=== PATIENT | male | born 1935 | race Caucasian/White ===

== ENCOUNTER 2023-08-09 14:44 | Outpatient (OUT) | payer MEDICARE, BC, SELFPAY ==
--- NOTE | 2023-08-09 15:18 | XR_ITS ---
The [address] [address] Patient Name: AZUL PALOMINO MRN: [id number] date: 1935 Sex: M Assigned Patient Location: LAB Current Patient Location: LAB Accession/Order Number: [id number] Exam Date: 08/09/2023 15:20 Report Date: 08/09/2023 15:32 At the request of: BRANDI SERNA Procedure: XR chest 2V EXAM: XR chest 2V HISTORY: dyspnea R06.00 COMPARISON: 08/21/2021 TECHNIQUE: Upright PA and lateral chest x-ray FINDINGS: Shallow inspiration. A small amount of atelectasis or scarring is seen at the right lung base. There has been interval improvement of the aeration at both lung bases. No acute infiltrate, effusion or pneumothorax is identified. A calcified granuloma is seen at the right apex. Some degenerative changes are seen in the spine. The heart is not significantly enlarged and the vasculature is not distended. XR/XR chest 2V IMPRESSION: Improved depth of inspiration and improved aeration at the lung bases. A small amount of linear atelectasis or scarring persist at the right lung base and there is evidence of previous granulomatous disease. There is no evidence of overt cardiac decompensation or an acute infiltrate. Electronically authenticated by: AKIL LANGFORD Date: 08/09/2023 15:32
[2023-08-09 15:47] LABS: Anion Gap 7.9; BUN Creatinine Ratio 15.4; Calcium 9.1 mg/dL (8.5-10.1); Carbon Dioxide 33.9 mmol/L (21.0-32.0); Chloride 98 mmol/L (98-107); Estimated GFR (African America >60 (>=60); Estimated GFR (Non-African Ame >60 (>=60); Glucose 111 mg/dL (74-106); Potassium 3.8 mmol/L (3.5-5.1); Sodium 136 mmol/L (136-145)
== END 2023-08-09 14:45 | disposition home or self-care (01) ==
PROVIDERS: PCP Nurse Practitioner; Visit Provider Nurse Practitioner
DX: R06.00 Dyspnea, unspecified (principal); I10 Essential (primary) hypertension
CPT/HCPCS: 36415; 71046; 80048

== ENCOUNTER 2023-09-30 10:49 | Outpatient (OUT) | payer MEDICARE, BC, SELFPAY ==
--- OUTSIDE RECORDS SUMMARY | 2023-09-30 11:00 | XMS_ITS | CCD ---
Author Name Unknown Address [id number] [place] [address] Organization [facility] Care Team Providers Care Nurse Practitioner Adult Name Role Phone PAY, DR STUART Attending Unavailable PAY, DR STUART Admitting Unavailable ROSS, ALEX Primary Care Unavailable PAY, DR STUART Consulting Unavailable SAMSA, URBANO Attending Unavailable SAMSA, URBANO Admitting Unavailable ROSS, ALEX Primary Care Unavailable RISHI, DR OMKAR Solorio Consulting Unavailable WIECETj, DR GOYO Arizmendi Procedure Practitioner Unav mayra REYES, DR RM Consulting Unavailable ERLIN, DR KENAN Bernal Consulting Unavailable SAMSA, URBANO Procedure Practitioner Unavailab apolinar DUCKWORTH, DR ZHANE Oliveira Consulting Unavailable WIECEK, DR GOYO Arizmendi Consulting Unavailable ZIEBER, DR ROBERT Solorio Consulting Unavailable NADERER, DR HELENA Mendes Consulting Unavailable STEPHANIE GOMEZ Consulting Unavailable SAMSA, URBANO Consulting Unavailable ROSS, ALEX Consulting Unavailable CHASE, SUPA Consulting Unavailable AHDOOT, TIFFANI Consulting Unavailable FANY, CEZAR Consulting Unavailable Laura, Edward Consulting Unavailable Francisca, Gerardo Consulting Unavailable Dominic Steve Consulting Unavailable SWAPNA RANDHAWA Consulting Unavailable ROSS, ALEX Primary Care Unavailable ROSS, ALEX Consulting Unavailable ROSS, ALEX Attending Unavailable ROSS, ALEX Admitting Unavailable ROSS, ALEX Consulting Unavailable ROSS, ALEX Primary Care Unavailable ROSS, ALEX Attending Unavailable ROSS, ALEX Admitting Unavailable REQUEST, NONE LISTED Admitting Unavaila ble URSZULA, ALEX Primary Care Unavailable REQUEST, NONE LISTED Consulting Unavaila ble REQUEST, NONE LISTED Attending Unavaila ble URSZULA, ALEX Consulting Unavailable URSZULA, ALEX Primary Care Unavailable REQUEST, NONE LISTED Attending Unavaila ble REQUEST, DR YANG LISTED Admitting Unavaila ble REQUEST, NONE LISTED Consulting Unavaila ble ARI, DR GARCIA Attending Unavailable ARI, DR GARCIA Admitting Unavailable ROSS, ALEX Primary Care Unavailable ARI, DR GARCIA Consulting Unavailable Gerardo Brady Consulting Unavailable Ailyn Baez Unavailable Unavailable Unavailable PROVIDER, UNKNOWN Attending Unavailable NA MELLO Referring Unavailable ZHANE WHITFIELD Admitting Unavailable RIAZ, NA Referring Unavailable ZHANE WHITFIELD Admitting Unavailable PROVIDER, UNKNOWN Attending Unavailable PROVIDER, UNKNOWN Attending Unavailable PROVIDER, UNKNOWN Admitting Unavailable TUPA, NA Referring Unavailable PROVIDER, UNKNOWN Attending Unavailable PROVIDER, UNKNOWN Admitting Unavailable TUPA, NA Referring Unavailable PROVIDER, UNKNOWN Attending Unavailable PROVIDER, UNKNOWN Admitting Unavailable TUPA, NA Referring Unavailable PROVIDER, UNKNOWN Admitting Unavailable TUPA, NA Referring Unavailable CONSULT, IP SURGERY TRIAGE Consulting Unava ilable NATHAN GUERRERO Attending Unavailable ZHANE WHITFIELD Admitting Unavailable REQUEST, IP PHYSICAL THERAPY SERVICE Consulting Unavailable REQUEST, IP OCCUPATIONAL THERAPY SERVICE Consult ing Unavailable CONSULT, IP INFECTIOUS DISEASE Consulting U navailable PROVIDER, UNKNOWN Admitting Unavailable NATHAN MOYA Referring Unavailable PROVIDER, UNKNOWN Attending Unavailable CONSULT, IP SURGERY TRAUMA Referring Unava ilable PROVIDER, UNKNOWN Admitting Unavailable PROVIDER, UNKNOWN Attending Unavailable Keira Haile Unavailable AILYN BAEZ Primary Care Unavailable AILYN BAEZ Attending Unavailable Bullimore, Marilyn E Admitting Unavailable Bullimore, Marilyn E Attending Unavailable Ailyn Baez Primary Care Unavailable ELTAHAWY, EHAB Referring Unavailable ELTAHAWY, EHAB Attending Unavailable BEATRIZ ARAMBULA Attending Unavailable ELTAHAWY, EHAB Referring Unavailable Ailyn Baez MD Primary Care Provider [phone] Nahid CYLINDER PRESS OPERATOR, Annette Unavailable ANNETTE WHITFIELD Attending Unavailable ANNALEE HERNÁNDEZ A Attending Unavailable ANNMIS SASCHA H Referring Unavailable EDGARZAMZAM SHARMAORAH A Attending Unavailable NAHID ANNETTE Attending Unavailable TIMMIS, SASCHA H Attending Unavailable NAHID ANNETTE Attending Unavailable EDGAR ANNALEE A Attending Unavailable Allergies Allergy Classification Reported Allergen(s) Allergy Type Date of Onset Reaction(s) Facility (1 source) Lidocaine Drug Allergy 08-30-2013 [facility] Repository Medications Current Medications Medication Drug Class(es) Dates Sig (Normalized) Sig (Original) aspirin 81 mg delayed release oral tablet (14 sources) Platelet Aggregation Inhibitor, Nonsteroidal Anti-inflammatory Drug Start: 09-12-2023 End: 12-11-2023 take 1 tablet by mouth once daily aspirin 81 MG EC tablet Indications: 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 90 tablet 1 09/12/2023 12/11/2023 Active Atorvastatin Agustín cium Active b complex vitamins capsule (4 sources) take 1 capsule by mouth in the morning b complex vitamins capsule Take 1 capsule by mouth in the morning. 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 Take with meals. 180 tablet 1 09/12/2023 12/11/2023 Active Start: 05-25-2021 take 1 tablet by gisela twice daily Carvedilol 25 MG Oral Tablet TAKE 1 TABLET BY MOUTH TWICE DAILY Quantity: 90 Refills: 2 Ordered: 30-Aug-2022 Ailyn Baez DO Start : 25-May-2021 Active Carvedilol Activ e cyclobenzaprine hydrochloride 5 mg oral tablet (1 source) Muscle Relaxant Start: 08-27-2022 take 1 tablet by mouth every eight hours Cyclobenzaprine HCl 5 MG 1 tablet as needed Orally Three times a day Aug, Active finasteride 5 mg oral tablet (14 sources) 5-alpha Reductase Inhibitor Start: 05-25-2021 End: 12-11-2023 take 1 tablet by mouth in the morning finasteride (Proscar) 5 MG tablet Indications: Benign prostatic hyperplasia with weak urinary stream Take 1 tablet (5 mg) by mouth in the morning. Take 5 mg by mouth in the morning.. 90 tablet 1 09/12/2023 12/11/2023 Active Finasteride Acti ve furosemide 20 mg oral tablet (11 sources) Loop Diuretic Start: 09-12-2023 End: 12-11-2023 take 1 tablet by mouth every other day furosemide (Lasix) 20 MG tablet Indications: Edema of both lower extremities Take 1 tablet (20 mg) by mouth every other day 45 tablet 1 09/12/2023 12/11/2023 Active Start: 07-20-2023 End: 10-18-2023 take 1 tablet by mouth once daily as needed for edema furosemide (Lasix) 20 MG tablet Indications: Leg swelling Take 1 tablet (20 mg) by mouth Daily as needed (LE edema) 90 tablet 0 07/20/2023 09/12/2023 Discontinued (Reorder) Start: 12-08-2021 Furosemide 20 MG Oral Tablet TAKE ONE TABLET BY MOUTH EVERY DAY (STOP TAKING IT ONCE LEG SWELLING RESOLVE, IF SWELLING REOCCURRS YOU CAN START TAKING AGAIN) Quantity: 90 Refills: 1 Ordered: 07-Apr-2022 Ailyn Baez DO Start : 08-Dec-2021 Active Start: 10-07-2021 take 1 tablet by gisela th once daily Furosemide 20 MG Oral Tablet take 1 tablet by mouth daily as directed Quantity: 30 Refills: 3 Ordered: 07-Oct-2021 Ailyn Baez DO Start : 07-Oct-2021 Active Furosemide Activ e hydroCHLOROthiazide 25 mg oral tablet (13 sources) Thiazide Diuretic Start: 09-05-2023 End: 12-11-2023 take 1 tablet by mouth in the morning hydroCHLOROthiazide (HYDRODiuril) 25 MG tablet Indications: Primary hypertension (CMS/HCC) , Edema of both lower extremities , Essential (primary) hypertension (CMS/HCC) Take 1 tablet (25 mg) by mouth in the morning. 90 tablet 1 09/12/2023 12/11/2023 Active Start: 05-25-2021 take 1 tablet by gisela th once daily hydroCHLOROthiazide 25 MG Oral Tablet TAKE 1 TABLET BY MOUTH DAILY Quantity: 90 Refills: 3 Ordered: 07-Apr-2022 Ailyn Baez DO Start : 25-May-2021 Active hydroCHLOROthiaz radha Active losartan potassium 100 mg oral tablet (6 sources) Angiotensin 2 Receptor Gem Start: 09-12-2023 End: 12-11-2023 take 1 tablet by mouth in the morning losartan (Cozaar) 100 MG tablet Indications: Primary hypertension (CMS/HCC) Take 1 tablet (100 mg) by mouth in the morning. 90 tablet 1 09/12/2023 12/11/2023 Active methylPREDNISolone 4 mg oral tablet (1 source) Corticosteroid Start: 08-27-2022 methylPREDNISolone 4 MG as directed Orally Once a day for 6 days Aug, Active Potassimin (1 source) Potassimin Activ e microencapsulated potassium chloride 10 meq extended release oral tablet (10 sources) Start: 07-20-2023 End: 12-11-2023 take 1 tablet by mouth once daily as needed potassium chloride CR (Klor-Con M10) 10 MEQ ER tablet Indications: Leg swelling Take 1 tablet (10 mEq) by mouth Daily as needed (when takes lasix medication) Do not crush or chew. 90 tablet 1 09/12/2023 12/11/2023 Active Start: 10-07-2021 take 1 capsule by [facility] once daily Potassium Chloride ER 10 MEQ Oral Capsule Extended Release TAKE 1 CAPSULE BY MOUTH EVERY DAY Quantity: 90 Refills: 1 Ordered: 07-Apr-2022 Ailyn Baez DO Start : 07-Oct-2021 Active on days when you take lasix vitamin b12 1 mg oral tablet (14 sources) Vitamin B12 Start: 09-12-2023 End: 12-11-2023 take 1 tablet by mouth in the morning cyanocobalamin (Vitamin B-12) 1000 MCG tablet Indications: B12 deficiency Take 1 tablet (1,000 mcg) by mouth in the morning. 90 tablet 1 09/12/2023 12/11/2023 Active Vitamin B12 Acti ve take 1 tablet by mouth once lonny y Vitamin B-12 5000 MCG Oral Tablet Disintegrating Take 1 tablet daily Quantity: 0 Refills: 0 Ordered: 09-Sep-2021 DO Active Completed/Discontinued Medications Medication Drug Class(es) Dates Sig (Normalized) Sig (Original) acetaminophen 325 mg / HYDROcodone bitartrate 7.5 mg oral tablet (1 source) Opioid Agonist Start: 07-28-2021 End: 09-09-2021 take 1 tablet by mouth every six hours HYDROcodone-Aceta minophen 7.5-325 MG Oral Tablet TAKE 1 TABLET BY MOUTH EVERY 6 HOURS [id number] Quantity: 0 Refills: 0 Ordered: 10-Aug-2021 DO Start : 28-Jul-2021 End : 09-Sep-2021 Complete cetirizine hydrochloride 10 mg oral tablet (4 sources) Histamine-1 Receptor Antagonist ZyrTEC Allergy 10 MG Oral Tablet Quantity: 0 Refills: 0 Ordered: 14-Oct-2021 DO Active Oxygen (11 sources) Start: 09-09-2021 Oxygen 2 L per nasal cannula at bedtime Quantity: 1 Refills: 0 Ordered: 09-Sep-2021 Ailyn Baez DO Start : 09-Sep-2021 Active oxygen (O2) gas Inhale 2 L/min continuously Wear at night while sleeping 0 Active polyethylene glycol 3350 94269 mg powder for oral solution (7 sources) Osmotic Laxative Start: 09-09-2021 Polyethylene Glycol 3350 17 GM/SCOOP Oral Powder MIX 17 GRAMS IN 8 OUNCES OF WATER AND DRINK ONCE DAILY. Quantity: 3 Refills: 3 Ordered: 07-Apr-2022 Ailyn Baez DO Start : 09-Sep-2021 Active Problems Active Problems Problem Classification Problem Date Documented Date Episodic/Chronic Cataract (4 sources) Artificial lens present; Translations: [Presence of intraocular lens] Onset: 08-28-2021 04-25-2023 Chronic Chronic obstructive pulmonary disease and bronchiectasis (20 sources) Chronic obstructive lung disease; Translations: [Chronic airway obstruction, not elsewhere classified] Onset: 08-24-2022 Chronic Comment on above: Chronic obstructive pulmonary disease, unspecified COPD type; Complications of surgical procedures or medical care (2 sources) Acute and chronic postprocedural respiratory failure; Translations: [Other postprocedural complications and disorders of digestive system] Onset: 08-17-2021 Episodic Coronary atherosclerosis and other heart disease (17 sources) Coronary atherosclerosis; Translations: [Coronary atherosclerosis of ruby coronary artery] Onset: 08-24-2022 Chronic Diabetes mellitus without complication (8 sources) Type 2 diabetes mellitus without complications; Translations: [Type 2 diabetes mellitus without complication] Onset: 10-06-2022 Chronic Disorders of lipid metabolism (20 sources) Pure hypercholesterolemia, unspecified; Translations: [Hypercholesterolemia ] Onset: 08-25-2021 Resolved: 04-25-2023 Chronic Essential hypertension (20 sources) Essential (primary) hypertension; Translations: [Hypertensive disorder] Onset: 08-25-2021 Resolved: 04-25-2023 Chronic Fever of unknown origin (3 sources) Fever, unspecified; Translations: [FEVER UNSPECIFIED] Onset: 08-22-2021 Episodic Fluid and electrolyte disorders (4 sources) Hypo-osmolality and hyponatremia; Translations: [Dehydration] Onset: 08-20-2021 Episodic Genitourinary symptoms and ill-defined conditions (2 sources) Poor urinary stream; Translations: [Poor urinary stream] Onset: 08-24-2022 Episodic Hyperplasia of prostate (15 sources) Weak urinary stream due to benign prostatic hypertrophy; Translations: [Hypertrophy (benign) of prostate with urinary obstruction and other lower urinary tract symptoms (LUTS)] Onset: 08-24-2022 Chronic Immunizations and screening for infectious disease (4 sources) Encounter for immunization; Translations: [ENCOUNTER FOR IMMUNIZATION] Onset: 06-09-2021 Episodic Intestinal obstruction without hernia (1 source) Ileus, unspecified; Translations: [ILEUS UNSPECIFIED] Onset: 08-17-2021 Episodic Nutritional deficiencies (1 source) Moderate protein-calorie malnutrition; Translations: [MODERATE PROTEIN-CALORIE MLNUTRIT] Onset: 08-17-2021 Chronic Nutritional deficiencies (13 sources) Cobalamin deficiency; Translations: [Other B-complex deficiencies] Onset: 08-24-2022 04-25-2023 Episodic Other aftercare (1 source) senior living (current) use of aspirin; Translations: [LONG-TERM CURRENT USE OF ASPIRIN] Onset: 08-25-2021 Episodic Other aftercare (1 source) Other custodial (current) drug therapy; Translations: [OTH INDUSTRIAL GAS FITTER HELPER CURRENT DRUG THERAPY] Onset: 08-25-2021 Episodic Other circulatory disease (4 sources) Hypotension, unspecified; Translations: [HYPOTENSION UNSPECIFIED] Onset: 08-18-2021 Episodic Other connective tissue disease (9 sources) Swelling of lower limb; Translations: [Swelling of limb] Onset: 08-24-2022 04-25-2023 Episodic Other connective tissue disease (2 sources) Other specified soft tissue disorders; Translations: [Other specified soft tissue disorders] Onset: 08-24-2022 Episodic Other diseases of bladder and urethra (1 source) Neuromuscular dysfunction of bladder, unspecified; Translations: [NEUROMUSCULR DYSFNCTION BLADDER UNS] Onset: 08-17-2021 Chronic Other ear and sense organ disorders (4 sources) Hearing loss; Translations: [Unspecified hearing loss, unspecified ear] Onset: 08-28-2021 04-25-2023 Chronic Other ear and sense organ disorders (4 sources) Bilateral hearing loss; Translations: [Sensorineural hearing loss, unilateral, right ear, with restricted hearing on the contralateral side] Onset: 08-28-2021 04-25-2023 Chronic Other ear and sense organ disorders (4 sources) Asymmetrical sensorineural hearing loss; Translations: [Sensorineural hearing loss, bilateral] Onset: 04-25-2023 04-25-2023 Chronic Other ear and sense organ disorders (4 sources) Sensorineural hearing loss, bilateral; Translations: [Sensorineural hearing loss, bilateral] Onset: 08-28-2021 04-25-2023 Chronic Other ear and sense organ disorders (3 sources) Decreased hearing ; Translations: [Unspecified hearing loss, bilateral] Onset: 09-12-2023 09-12-2023 Chronic Other ear and sense organ disorders (1 source) Sudden idiopathic hearing loss; Translations: [Sudden idiopathic hearing loss, left ear] 09-06-2023 Episodic Other liver diseases (4 sources) Cirrhosis of liver; Translations: [Unspecified cirrhosis of liver] Onset: 08-28-2021 04-25-2023 Chronic Other lower respiratory disease (1 source) Other disorders of lung; Translations: [OTHER DISORDERS OF LUNG] Onset: 08-17-2021 Episodic Other lower respiratory disease (1 source) Hypoxemia; Translations: [HYPOXEMIA] Onset: 08-17-2021 Episodic Other lower respiratory disease (4 sources) Dyspnea; Translations: [Dyspnea, unspecified] Onset: 08-09-2023 08-09-2023 Episodic Other nutritional; endocrine; and metabolic disorders (1 source) Hypocalcemia; Translations: [HYPOCALCEMIA] Onset: 08-17-2021 Chronic Other nutritional; endocrine; and metabolic disorders (2 sources) Obesity; Translations: [Obesity, unspecified] Chronic Other nutritional; endocrine; and metabolic disorders (1 source) Body mass index (BMI) 28.0-28.9, adult; Translations: [BODY MASS INDEX BMI 28.0-28.9 ADULT] Onset: 08-17-2021 Episodic Other nutritional; endocrine; and metabolic disorders (3 sources) Body mass index 25-29 - overweight; Translations: [Body Mass Index 29.0-29.9, adult] Episodic Other nutritional; endocrine; and metabolic disorders (8 sources) Overweight in adulthood with body mass index of 25 or more but less than 30; Translations: [Body Mass Index 29.0-29.9, adult] Onset: 08-09-2023 08-09-2023 Episodic Other screening for suspected conditions (not mental disorders or infectious disease) (1 source) Abnormal findings on diagnostic imaging of other abdominal regions, including retroperitoneum; Translations: [ABN FIND DX IMAG OTH AB REGION W/RP] Onset: 08-17-2021 Episodic Residual codes; unclassified (6 sources) Obstructive sleep apnea syndrome; Translations: [Obstructive sleep apnea (adult)(pediatric)] Chronic Residual codes; unclassified (13 sources) Obstructive sleep apnea of adult; Translations: [Obstructive sleep apnea (adult)(pediatric)] Onset: 08-28-2021 04-25-2023 Chronic Residual codes; unclassified (1 source) Acquired absence of other specified parts of digestive tract; Translations: [ACQ ABSENCE OTH PART DIGESTV TRACT] Onset: 08-20-2021 Episodic Residual codes; unclassified (1 source) Insomnia, unspecified; Translations: [INSOMNIA UNSPECIFIED] Onset: 08-17-2021 Episodic Residual codes; unclassified (6 sources) Bilateral lower limb edema; Translations: [Localized edema] Onset: 09-05-2023 09-05-2023 Episodic Screening and history of mental health and substance abuse codes (1 source) Personal history of nicotine dependence; Translations: [PERSONAL HISTORY OF NICOTINE DEPEND] Onset: 08-25-2021 Episodic Syncope (2 sources) Syncope; Translations: [Cough syncope] Onset: 10-29-2022 Unclassified (1 source) CONTACT W/AND (SUSP) EXPOS COVID-19; Translations: [CONTACT W/AND (SUSP) EXPOS COVID-19] Onset: 08-25-2021 Unclassified (1 source) Low back pain, unspecified; Translations: [Low back pain, unspecified] Onset: 10-06-2022 Urinary tract infections (1 source) Urinary tract infection, site not specified; Translations: [UTI SITE NOT SPECIFIED] Onset: 08-25-2021 Episodic Past or Other Problems Problem Classification Problem Date Documented Da te Episodic/Chronic Appendicitis and other appendiceal conditions (6 sources) Unspecified acute appendicitis; Translations: [Appendicitis] Onset: 08-01-2020 Resolved: 09-12-2023 Episodic Diabetes mellitus without complication (8 sources) Prediabetes; Translations: [Impaired glucose tolerance] Onset: 03-18-2021 Resolved: 09-12-2023 Episodic Other ear and sense organ disorders (4 sources) Tinnitus of left ear; Translations: [Tinnitus, left ear] Onset: 08-28-2021 04-25-2023 Episodic Other ear and sense organ disorders (4 sources) Sudden hearing loss; Translations: [Sudden idiopathic hearing loss, left ear] Onset: 04-27-2023 04-27-2023 Episodic Other gastrointestinal disorders (11 sources) Chronic constipation; Translations: [Constipation, unspecified] Onset: 08-24-2022 04-25-2023 Episodic Other lower respiratory disease (7 sources) Dyspnea at rest; Translations: [Shortness of breath] Resolved: 04-07-2022 Episodic Other lower respiratory disease (1 source) History of chronic obstructive airway disease; Translations: [Personal history of other diseases of respiratory system] Resolved: 04-07-2022 Episodic Comment on above: Chronic obstructive pulmonary disease, unspecified COPD type; Other lower respiratory disease (1 source) History of pleural effusion; Translations: [Personal history of other diseases of respiratory system] Resolved: 04-07-2022 Episodic Other lower respiratory disease (2 sources) Other forms of dyspnea; Translations: [Other forms of dyspnea] Onset: 05-18-2022 Episodic Other nervous system disorders (7 sources) Postoperative pain ; Translations: [Other acute postoperative pain] Resolved: 04-07-2022 Episodic Other nervous system disorders (1 source) H/O: respiratory disease; Translations: [Obstructive sleep apnea (adult)(pediatric)] Resolved: 04-07-2022 Episodic Other upper respiratory infections (4 sources) Acute sinusitis; Translations: [Other acute sinusitis] Onset: 08-09-2023 Resolved: 09-12-2023 08-09-2023 Episodic Peritonitis and intestinal abscess (11 sources) Abdominal abscess; Translations: [Abscess, abdomen] Onset: 08-28-2021 Resolved: 04-07-2022 04-25-2023 Episodic Pleurisy; pneumothorax; pulmonary collapse (7 sources) Pleural effusion; Translations: [Unspecified pleural effusion] Onset: 08-28-2021 04-25-2023 Episodic Residual codes; unclassified (11 sources) Insomnia; Translations: [Insomnia, unspecified] Onset: 08-24-2022 04-25-2023 Episodic Syncope (10 sources) Syncope and collapse; Translations: [Tussive syncope] Onset: 08-28-2021 Episodic Unclassified (1 source) Right lumbar pain M54.50 Unclassified (1 source) Low back pain, unspecified; Translations: [Low back pain, unspecified] Onset: 10-06-2022 Results Test Name Value Interpretation Reference Range Facility Office Visiton 04-26-2023 Follow-up visit [id number] Christiana Palomino n F 1935 M [facility] Provider Department Center 04/26/2023 271-RAMSEY JIMENEZ CARD [facility] No family history on file Level of Service:34122 [place] OFFICE/OUTPATIENT ESTABLISHED LOW MDM 20-29 MIN Normal [facility] Office Visiton 10-29-2022 Follow-up visit [id number] GeorgetteChristiana n F 1935 M Date Provider Department Center 10/29/2022 120-BEATRIZ ARAMBULA CARD [facility] No family history on file Level of Service:97446 [place] OFFICE/OUTPATIENT ESTABLISHED MOD MDM 30-39 MIN Reason for Visit and Comments: Follow-up [[id number]] - 6 mo f/u - no complaints Normal [facility] Office Visit (Family Medicin e)on 04-07-2022 Follow-up visit Diagnoses/Problems HTN (hypertension) (401.9) (I10) Hypercholesteremia (272.0) (E78.00) B12 deficiency (266.2) (E53.8) COPD (chronic obstructive pulmonary disease) (496) (J44.9) Glucose intolerance (impaired glucose tolerance) (790.22) (R73.02) Orders B12 deficiency, Glucose intolerance (impaired glucose tolerance), HTN (hypertension), Hypercholesteremia Follow-up visit in 6 months Outpatient Follow-up Status: Hold For - Scheduling Requested for: 07Apr2022 Albumin, Urine Spot; Status:Active; Requested for:07Apr2022; Complete Blood Count + Differential; Status:Active; Requested for:07Apr2022; Comprehensive Metabolic Panel; Status:Active; Requested for:07Apr2022; Hemoglobin A1C; Status:Active; Requested for:07Apr2022; Lipid Panel; Status:Active; Requested for:07Apr2022; Magnesium, Serum; Status:Active; Requested for:07Apr2022; TSH WITH REFLEX TO FREE T4 IF ABNORMAL; Status:Active; Requested for:07Apr2022; COPD (chronic obstructive pulmonary disease), Leg swelling Cardiology - General Referral Evaluation and Treatment Evaluate AND Treat dr michael justin Status: Active Requested for: 08Dec2021 AMA Intake Activity Log Entry by Donya Tobar ([email or web address]) on 2022-01-01 17:21 Status Change: To Closed - Unable To Schedule-Patient Will Schedule With Patient Discussion/Summary The impression is hypertension. Currently, the condition is stable and responding to treatment. There are no changes in medication management. Other planned treatment includes an exercise regimen, dietary modification, low sodium diet and non-steroidal anti-inflammatory drugs avoidance. The plan was discussed with the patient. Medications were renewed and updated in the patient's chart. PFT and echocardiogram ordered By pulmonary but not yet scheduled. They have not yet heard from scheduling regarding these from several months ago Cardiology referral ordered from pulmonary but they have not yet heard anything from scheduling and would prefer to go to prior cardiology. Advised for the patient to monitor sodium intake and increase water intake to prevent swelling. Follow-up in 6 months. Impression: hyperlipidemia. Currently, the condition is stable. There are no changes in medication management. Other planned treatment includes exercise program and weight loss program. The plan was discussed with the patient. By signing my name below, Clau Julien Scribe, attest that this documentation has been prepared under the direction and in the presence of Dr. Baez. Chief Complaint 86 year old patient here to follow on blood work, no concerns. History of Present Illness The patient states his hyperlipidemia has been under good control since the last visit. Comorbid Illnesses: hypertension. Symptoms: denies chest pain, denies intermittent leg claudication, denies muscle pain and denies muscle weakness. Associated symptoms include no focal neurologic deficits and no memory loss. Medications: the patient is adherent with his medication regimen. He denies medication side effects. The patient is doing well with his hyperlipidemia goals. The patient presents for follow-up of essential hypertension. Symptoms: denies impaired vision, denies dyspnea, denies chest pain, denies intermittent leg claudication and denies lower extremity edema. Associated symptoms include no headache, no focal neurologic deficits and no memory loss. Blood pressure control has been good. Medications: the patient is adherent with his medication regimen. He denies medication side effects. Disease Management: the patient is doing well with his blood pressure goals. Review of Systems Constitutional: no chills, no fever and no night sweats. ENT: no hearing loss, no nasal congestion, no nasal discharge, no hoarseness and no sore throat. Cardiovascular: no chest pain, no intermittent leg claudication, no lower extremity edema, no palpitations and no syncope. Respiratory: no cough, no shortness of breath during exertion, no shortness of breath at rest and no wheezing. Genitourinary: no dysuria, no change in urinary frequency, no urinary hesitancy and no feelings of urinary urgency. Musculoskeletal: no arthralgias, no back pain and no myalgias. Neurological: no difficulty walking, no headache, no limb weakness, no numbness and no tingling. Psychiatric: no anxiety, no depression, no anhedonia and no substance use disorders. Endocrine: no recent weight gain and no recent weight loss. 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 Normal [facility] BNPon 12-08-2021 Natriuretic peptide B (Bld) [Mass/Vol] 63 pg/mL Normal 0 - 99 [facility] [place] on above: Result Comment: . <1 00 pg/mL - Heart failure unlikely 100-299 pg/mL - Intermediate probability of acute heart . failure exacerbation. Correlate with clinical . context and patient history. >=300 pg/mL - Heart Failure likely. Correlate with clinical . context and patient history. BNP testing is performed using different testing methodology at [facility] than at other [facility]. Direct result comparisons should only be made within the same method. Performed By: #### B NP2 #### [address] [address] CBC AND DIFFERENTIALon 12-08 % AUTOMATED IMMATURE GRAN 0.3 % Normal 0.0 - 0.9 [facility] Comment on above: Result Comment: Mamie ture Granulocyte Count (IG) includes promyelocytes, myelocytes and metamyelocytes but does not include bands. Percent differential counts (%) should be interpreted in the context of the absolute cell counts (cells/L). Performed By: #### C BCDF #### [address] [address] Basophils (Bld) [#/Vol] 0.09 10*3/uL Normal 0.00 - 0.10 [facility] Comment on above: Performed By: #### C BCDF #### [address] [address] Basophils/100 WBC (Bld) 1.3 % Normal 0.0 - 2.0 [facility] Comment on above: Performed By: #### C BCDF #### [address] [address] Eosinophils (Bld) [#/Vol] 0.39 10*3/uL Normal 0.00 - 0.40 [facility] Comment on above: Performed By: #### C BCDF #### [address] [address] Eosinophils/100 WBC (Bld) 5.6 % Normal 0.0 - 6.0 [facility] Comment on above: Performed By: #### C BCDF #### [address] [address] Erythrocyte distribution width (RBC) [Ratio] 13.2 % Normal 11.5 - 14.5 [facility] Comment on above: Performed By: #### C BCDF #### [address] [address] Hematocrit (Bld) [Volume fraction] 42.3 % Normal 41.0 - 52.0 [facility] Comment on above: Performed By: #### C BCDF #### [address] [address] Hemoglobin (Bld) [Mass/Vol] 13.2 g/dL Low 13.5 - 17.5 [facility] Comment on above: Performed By: #### C BCDF #### [address] [address] Lymphocytes (Bld) [#/Vol] 1.98 10*3/uL Normal 0.80 - 3.00 [facility] Comment on above: Performed By: #### C BCDF #### [address] [address] Lymphocytes/100 WBC (Bld) 28.4 % Normal 13.0 - 44.0 [facility] Comment on above: Performed By: #### C BCDF #### [address] [address] MCHC (RBC) [Mass/Vol] 31.2 g/dL Low 32.0 - 36.0 [facility] Comment on above: Performed By: #### C BCDF #### [address] [address] MCV (RBC) [Entitic vol] 95 fL Normal 80 - 100 [facility] Comment on above: Performed By: #### C BCDF #### [address] [address] Monocytes (Bld) [#/Vol] 0.69 10*3/uL Normal 0.05 - 0.80 [facility] Comment on above: Performed By: #### C BCDF #### [address] [address] Monocytes/100 WBC (Bld) 9.9 % Normal 2.0 - 10.0 [facility] Comment on above: Performed By: #### C BCDF #### [address] [address] Neutrophils (Bld) [#/Vol] 3.79 10*3/uL Normal 1.60 - 5.50 [facility] Comment on above: Performed By: #### C BCDF #### [address] [address] Neutrophils/100 WBC (Bld) 54.5 % Normal 40.0 - 80.0 [facility] Comment on above: Performed By: #### C BCDF #### [address] [address] NUCLEATED RBC 0.0 /100 WBC Normal 0.0 - 0.0 [facility] Comment on above: Performed By: #### C BCDF #### [address] [address] Platelets (Bld) [#/Vol] 148 10*3/uL Low 150 - 450 [facility] Comment on above: Performed By: #### C BCDF #### [address] [address] RBC 4.43 x10E12/L Low 4.50 - 5.90 [facility] Comment on above: Performed By: #### C BCDF #### [address] [address] WBC (Bld) [#/Vol] 7.0 10*3/uL Normal 4.4 - 11.3 [facility] Comment on above: Performed By: #### C BCDF #### [address] [address] CHEST 2 VIEW PA AND LATon CHEST 2 VIEW PA AND LAT Patient Name: FIDEL PALOMINO STUDY: TH CHEST 2 VIEW PA AND LAT; 12/08/2021 9:30 am INDICATION: for b/l effusion size J90: Pleural effusion. COMPARISON: None. ACCESSION NUMBER(S): [id number] ORDERING CLINICIAN: NARENDRA NEWTON FINDINGS: CHEST/LUNGS: The cardiac and mediastinal silhouettes are within normal limits for the technique. The inspiratory volume is suboptimal which results in crowding of bronchovascular structures. There are areas of atelectasis and/or scarring in the lung bases. No definite consolidation. There is mild blunting of the costophrenic angle on the right which may relate to a small effusion or pleural thickening. No evidence of a pneumothorax. UPPER ABDOMEN: No remarkable upper abdominal findings. OSSEOUS STRUCTURES: No acute changes. IMPRESSION: Suboptimal inspiratory volume with crowding of bronchovascular structures as well as atelectasis/scarring in the lung bases. Small right effusion versus pleural thickening. No definite consolidation. Electronically signed by: MISSY ABREU MD Normal [facility] [place]PREHENSIVE PANELon 2021 Albumin [Mass/Vol] 3.9 g/dL Normal 3.4 - 5.0 [facility] Comment on above: Performed By: #### C MP #### [address] [address] ALP [Catalytic activity/Vol] 106 U/L Normal 33 - 136 [facility] Comment on above: Performed By: #### C MP #### [address] [address] ALT [Catalytic activity/Vol] 18 U/L Normal 10 - 52 [facility] Comment on above: Result Comment: Anabelle ents treated with Sulfasalazine may generate falsely decreased results for ALT. Performed By: #### C MP #### [address] [address] Anion gap [Moles/Vol] 11 mmol/L Normal 10 - 20 [facility] Comment on above: Performed By: #### C MP #### [address] [address] AST [Catalytic activity/Vol] 19 U/L Normal 9 - 39 [facility] Comment on above: Performed By: #### C MP #### [address] [place] [address] Bilirubin [Mass/Vol] 0.5 mg/dL Normal 0.0 - 1.2 [facility] Comment on above: Performed By: #### C MP #### [address] [place] [address] Calcium [Mass/Vol] 9.3 mg/dL Normal 8.6 - 10.3 [facility] Comment on above: Performed By: #### C MP #### [address] [place] [address] Chloride [Moles/Vol] 98 mmol/L Normal 98 - 107 [facility] Comment on above: Performed By: #### C MP #### [address] [place] [address] Creatinine [Mass/Vol] 0.75 mg/dL Normal 0.50 - 1.30 [facility] Comment on above: Performed By: #### C MP #### [address] [place] [address] GFR/1.73 sq M.predicted among non-blacks MDRD (S/P/Bld) [Vol rate/Area] 89 mL/min/{1.73_m2} Normal >90 [facility] Comment on above: Result Comment: CALC ULATIONS OF ESTIMATED GFR ARE PERFORMED USING THE 2020 CKD-EPI STUDY REFIT EQUATION WITHOUT THE RACE VARIABLE FOR THE IDMS-TRACEABLE CREATININE METHODS. https://jasn.asnjournals.org/content/early/ASN.49332988 88 Performed By: #### C MP #### [address] [place] [address] Glucose [Mass/Vol] 130 mg/dL High 74 - 99 [facility] Comment on above: Performed By: #### C MP #### [address] [place] [address] HCO3 (Bld) [Moles/Vol] 32 mmol/L Normal 21 - 32 [facility] Comment on above: Performed By: #### C MP #### [address] [place] [address] Potassium [Moles/Vol] 3.6 mmol/L Normal 3.5 - 5.3 [facility] Comment on above: Performed By: #### C MP #### [address] [address] Protein [Mass/Vol] 7.3 g/dL Normal 6.4 - 8.2 [facility] Comment on above: Performed By: #### C MP #### [address] [address] Sodium [Moles/Vol] 137 mmol/L Normal 136 - 145 [facility] Comment on above: Performed By: #### C MP #### [address] [address] Urea nitrogen [Mass/Vol] 20 mg/dL Normal 6 - 23 [facility] Comment on above: Performed By: #### C MP #### [address] [address] Complete Blood Count + Diffe rentialon 12-08-2021 Basophils/100 WBC (Bld) 1.3 % 0.0 - 2.0 [facility] [place] [address] Work Phone: Erythrocyte distribution width (RBC) [Ratio] 13.2 % See Below [place] [address] Work Phone: Comment on above: Reference Range: 11. 5 - 14.5 Hematocrit (Bld) [Volume fraction] 42.3 % See Below [place] [address] Work Phone: Comment on above: Reference Range: 41. 0 - 52.0 Hemoglobin (Bld) [Mass/Vol] 13.2 g/dL below low threshold See Below [place] [address] Work Phone: Comment on above: Reference Range: 13. 5 - 17.5 Lymphocytes/100 WBC (Bld) 28.4 % See Below [place] [address] Work Phone: Comment on above: Reference Range: 13. 0 - 44.0 MCHC (RBC) [Mass/Vol] 31.2 g/dL below low threshold See Below -Pulmonary [place] [address] Work Phone: Comment on above: Reference Range: 32. 0 - 36.0 MCV (RBC) [Entitic vol] 95 fL 80 - 100 -Pulmonary [place] [address] Work Phone: Monocytes/100 WBC (Bld) 9.9 % 2.0 - 10.0 -Pulmonary [place] [address] Work Phone: Neutrophils/100 WBC (Bld) 54.5 % See Below [facility] [place] [address] Work Phone: Comment on above: Reference Range: 40. 0 - 80.0 Platelets (Bld) [#/Vol] 148 10*3/uL below low threshold 150 - 450 -Pulmonary [place] [address] Work Phone: RBC (Bld) [#/Vol] 4.43 {x10E12/L} below low threshold See Below [facility] [place] [address] Work Phone: Comment on above: Reference Range: 4.5 0 - 5.90 WBC (Bld) [#/Vol] 7.0 10*3/uL 4.4 - 11.3 -Pul monary [place] [address] Work Phone: Complete Blood Count + Differential 0.09 {x10E9/L} See Below [facility] [place] [address] Work Phone: Comment on above: Reference Range: 0.0 0 - 0.10 Complete Blood Count + Differential 0.39 {x10E9/L} See Below [facility] [place] [address] Work Phone: Comment on above: Reference Range: 0.0 0 - 0.40 Complete Blood Count + Differential 0.69 {x10E9/L} See Below [place] [address] Work Phone: Comment on above: Reference Range: 0.0 5 - 0.80 Complete Blood Count + Differential 1.98 {x10E9/L} See Below [place] [address] Work Phone: Comment on above: Reference Range: 0.8 0 - 3.00 Complete Blood Count + Differential 3.79 {x10E9/L} See Below [place] [address] Work Phone: Comment on above: Reference Range: 1.6 0 - 5.50 Complete Blood Count + Differential 5.6 % 0.0 - 6.0 [place] [address] Work Phone: Complete Blood Count + Differential 0.3 % 0.0 - 0.9 [place] [address] Work Phone: Comment on above: Immature Granulocyte Count (IG) includes promyelocytes, myelocytes and metamyelocytes but does not include bands. Percent differential counts (%) should be interpreted in the context of the absolute cell counts (cells/L). Complete Blood Count + Differential 0.0 {/100_WBC} 0.0 - 0.0 [place] [address] Work Phone: Follow Up (Pulmonary Medicin e)on 12-08-2021 Follow Up (Pulmonary Medicine) Diagnoses/Problems COPD (chronic obstructive pulmonary disease) (496) (J44.9) Leg swelling (729.81) (M79.89) Shortness of breath at rest (786.05) (R06.02) Orders Start: Furosemide 20 MG Oral Tablet; TAKE ONE TABLET BY MOUTH EVERY DAY (STOP TAKING IT ONCE LEG SWELLING RESOLVE, IF SWELLING REOCCURRS YOU CAN START TAKING AGAIN) Rx By: Narendra Newton; Dispense: 30 Days ; #:30 Tablet; Refill: 0;For: COPD (chronic obstructive pulmonary disease); CHELSEA = N; Sent To: [facility]; Last Updated By: System, MessageCenter; 12/08/2021 10:32:38 AM Brain Natriuretic Peptide BNP; Status:Active; Requested for:08Dec2021; Perform:Lab Services - Lab To Draw (Blood Test); Due:08Mar2022;Ordered ; For:COPD (chronic obstructive pulmonary disease); Ordered By:Narendra Newton; Complete Blood Count + Differential; Status:Active; Requested for:08Dec2021; Perform:Lab Services - Lab To Draw (Blood Test); Due:08Mar2022;Ordered ; For:COPD (chronic obstructive pulmonary disease); Ordered By:Narendra Newton; Complete PFT w/o ABG; Status:Hold For - Scheduling; Requested for:08Dec2021; Perform:[facility]; Due:08Mar2022;Ordered ; For:COPD (chronic obstructive pulmonary disease); Ordered By:Narendra Newton; Comprehensive Metabolic Panel; Status:Active; Requested for:08Dec2021; Perform:Lab Services - Lab To Draw (Blood Test); Due:08Mar2022;Ordered ; For:COPD (chronic obstructive pulmonary disease); Ordered By:Narendra Newton; Cardiology - General Referral Evaluation and Treatment Evaluate AND Treat Status: Hold For - Scheduling Requested for: 08Dec2021 Ordered;For: COPD (chronic obstructive pulmonary disease), Leg swelling; Ordered By: Narendra Newton Performed: Order Comments: near [facility] Due: 08Mar2022 Renew: Potassium Chloride ER 10 MEQ Oral Capsule Extended Release; TAKE 1 CAPSULE BY MOUTH EVERY DAY Rx By: Narendra Newton; Dispense: 30 Days ; #:30 Capsule; Refill: 3;For: HTN (hypertension); CHELSEA = N; Sent To: [facility]; Msg to Pharmacy: on days when you take lasix; Last Updated By: [employer]; 12/08/2021 10:33:53 AM Echocardiogram; Status:Hold For - Scheduling; Requested for:08Dec2021; Perform:[facility] ([facility]); Due:08Mar2022;Ordered ; For:Shortness of breath at rest; Ordered By:Narendra Newton; Patient Discussion/Summary By signing my name below, I, Sahra Rowland, attest that this documentation has been prepared under the direction and in the presence of Dr. Newton. Provider Impressions October 14, 2021: 86 year old male, former smoker with history of obstructive sleep apnea, first time visit. During the night, he experiences nocturnal choking and his oxygen levels desaturates to less than 70%. He has had a sleep study performed in the past at [facility] with use of a CPAP machine, however he could not tolerate wearing the sleep mask. Due to this, he is currently on 2L of supplementary oxygen while sleeping. He is able to perform all activities of daily living. He complains of an intermittent dry cough . He takes day time naps. He has a history of acute appendicitis and underwent appendectomy at [facility] in 07/2021 which was complicated by intra-abdominal infection leading to drainage at [facility] on August 25, 2021. . He uses compression stockings to manage the swelling of his legs. December 08, 2021: Comes for follow up. He currently complains of a chronic morning cough as well as lower extremity edema, which is currently being managed with Lasix as needed. He denies any symptoms of shortness of breath on exertion. 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 Neurological: Alert and oriented x3, Skin ; no rash Relevant Labs and Imaging: Personally reviewed Chest x-ray 11/2021: Shows small right sided pleural effusion. No effusion seen on the left side, however there is a chronic elevated hemidiaphragm which was present in 2019 as per Juan's notes. Assessment; 86 year old male with medical history of lower extremity edema and obstructive sleep apnea, not on CPAP. He has a history of acute appendicitis and underw (more content not included)... Normal [facility] - Chemistry and C hemistry - challengeon 12-08-2021 Albumin BCP dye [Mass/Vol] 3.9 g/dL 3.4 - 5.0 [facility] [place] [address] Work Phone: ALP [Catalytic activity/Vol] 106 U/L 33 - 136 [place] [address] Work Phone: ALT With P-5'-P [Catalytic activity/Vol] 18 U/L 10 - 52 [place] [address] Work Phone: Comment on above: Patients treated wit h Sulfasalazine may generate falsely decreased results for ALT. Anion gap [Moles/Vol] 11 mmol/L 10 - 20 [facility] 170 Work Phone: AST With P-5'-P [Catalytic activity/Vol] 19 U/L 9 - 39 [facility] [place] [address] Work Phone: Bilirubin [Mass/Vol] 0.5 mg/dL 0.0 - 1.2 [facility] 170 Work Phone: Calcium [Mass/Vol] 9.3 mg/dL 8.6 - 10.3 -Pul monary [facility] 170 Work Phone: Chloride [Moles/Vol] 98 mmol/L 98 - 107 -Pulmonary [place] [address] Work Phone: CO2 [Moles/Vol] 32 mmol/L 21 - 32 -Pulmon brianna [place] [address] Work Phone: Creatinine [Mass/Vol] 0.75 mg/dL See Below [place] [address] Work Phone: Comment on above: Reference Range: 0.5 0 - 1.30 Glucose [Mass/Vol] 130 mg/dL above high threshold 74 - 99 [facility] 170 Work Phone: Potassium [Moles/Vol] 3.6 mmol/L 3.5 - 5.3 [facility] 170 Work Phone: Protein [Mass/Vol] 7.3 g/dL 6.4 - 8.2 [facility] 170 Work Phone: Sodium [Moles/Vol] 137 mmol/L 136 - 145 [place] [address] Work Phone: Urea nitrogen [Mass/Vol] 20 mg/dL 6 - 23 [place] [address] Work Phone: No Panel Informationon 12-08 89 {mL/min/1.73m2} >90 [place] [address] Work Phone: Comment on above: CALCULATIONS OF CHECO MATED GFR ARE PERFORMED USING THE 2020 CKD-EPI STUDY REFIT EQUATION WITHOUT THE RACE VARIABLE FOR THE IDMS-TRACEABLE CREATININE METHODS.https://jasn.asnjournals.org/content//ASN. 4535174195 63 pg/mL 0 - 99 [facility] 170 Work Phone: Comment on above: . <100 pg/mL - Heart failure [id number] pg/mL - Intermediate probability of acute heart. failure exacerbation. Correlate with clinical. context and patient history. >=300 pg/mL - Heart Failure likely. Correlate with clinical. context and patient history.BNP testing is performed using different testing methodology at [facility] than at other [facility]. Direct result comparisons should only be made within the same method. Radiologyon 05-10-2022 XR Chest 2 Views Please click on the link to view the study images Normal [facility] 170 Work Phone: Tobacco Screening.on 022 Fall risk assessment a) No falls within the last year [facility] 170 Work Phone: Tobacco use status CPHS b) No [facility] 170 Work Phone: Consult (Pulmonary Medicine) on 10-14-2021 Consult (Pulmonary Medicine) Diagnoses/Problems Body mass index [BMI] 29.0-29.9, adult (V85.25) (Z68.29) Pleural effusion (511.9) (J90) Provider Impressions October 14, 2021: 86 year old male, former smoker with history of obstructive sleep apnea, first time visit. During the night, he experiences nocturnal choking and his oxygen levels desaturates to less than 70%. He has had a sleep study performed in the past at [facility] with use of a CPAP machine, however he could not tolerate wearing the sleep mask. Due to this, he is currently on 2L of supplementary oxygen while sleeping. He is able to perform all activities of daily living. He complains of an intermittent dry cough . He takes day time naps. He has a history of acute appendicitis and underwent appendectomy at [facility] in 07/2021 which was complicated by intra-abdominal infection leading to drainage at [facility] on August 25, 2021. . He uses compression stockings to manage the swelling of his legs. 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 Neurological: Alert and oriented x3, Skin ; no rash Relevant Labs and Imaging: Personally reviewed Assessment; 86 year old male with medical history of lower extremity edema and obstructive sleep apnea, not on CPAP. He has a history of acute appendicitis and underwent appendectomy at [facility] in 07/2021 which was complicated by intra-abdominal infection leading to drainage at [facility] on August 25, 2021. During that hospitalization, he had a CT chest which shows bibasilar atelectasis associated with bilateral pleural effusion, right more than left. He was also found to be hypoxic at night over there leading to sleep study at [facility] which showed obstructive sleep apnea, however was unable to tolerate CPAP and has been on oxygen since then. This pleural effusion was never drained. Now comes to the clinic for the first time. Has bilateral lower extremity medial edema and has been recently started on Lasix 20 mg by his primary doctor. He is already on hydrochlorothiazide. Overall he feels better and his productive cough has resolved and now only intermittent dry cough. Also his exercise tolerance has gotten better. Now shortness of breath only on strenuous activity. He is currently undergoing physical therapy. He is currently on 2L of oxygen at night only. Recommendations: Will order a repeat chest x-ray. Will get sleep study records and discharge summary from [facility]. We will get his CT chest uploaded on PACS Follow up in pulmonary clinic in 3 weeks Patient understands the importance of follow up with PMD for health care maintenance and general medical conditions. This note was partially generated using [employer] voice recognition and there may be incorrect words, wording, spelling, or pronunciation errors that were not corrected prior to committing the note to the medical record Chief Complaint FIDEL PALOMINO is here for an initial evaluation. Reason for Visit: COPD, JOE,. Appointment requested by: Ailyn Baez . 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 Normal [employer] Tobacco Screening.on 022 Fall risk assessment a) No falls within the last year [facility] Work Phone: Tobacco use status CPHS b) No -[facility] Work Phone: Medicare Annual Wellness Vis iton 10-07-2021 Medicare Annual Wellness Visit *Chief Complaint AWV; 1 month follow up on blood work results. History of Present Illness The patient is being seen for the subsequent annual wellness visit. Past Medical, Surgical and Family History: reviewed and updated in chart. Interval History: Patient has not been hospitalized previously. Medications and Supplements: Review of all medications by a prescribing practitioner or clinical pharmacist (such as prescriptions, OTCs, herbal therapies and supplements) documented in the medical record. No, the patient is not using opioids. Health Risk Assessment:. Paper HRA completed by patient and scanned into chart. Patient Self Assessment of Health Status: good. Tobacco use: Non-User Alcohol use: Non-User Illicit drug use: Non-User Current diet: well balanced diet, does consume adequate fluids and does consume caffeine. Exercise Frequency: regularly. Depression/Suicide Screening: . During the past 2 weeks, the patient has not felt down, depressed or hopeless. During the past 2 weeks, the patient has not felt little interest or pleasure in doing things. Hearing Impairment: Patient has slight hearing impairment. Cognitive Impairment: No cognitive impairment observed. Bathing: performs independently. Dressing: performs independently. Walking: performs independently. Toileting: performs independently. Feeding: performs independently. Personal Hygiene: performs independently. Bowels: continent. Bladder: continent. Managing Finances: dependent. Shopping: performs independently. Managing Medications: needs assistance. Housework / Basic Home Maintenance: performs independently. Handling Transportation: performs independently. Preparing Meals: performs independently. Using the Telephone/ Communication Devices: performs independently. Falls Risk Screening:. FIDEL has not fallen in the last 6 months. Home safety risk factors: loose rugs. Advance directives:. Advanced Care Planning discussed and documented advance care plan or surrogate decision maker documented in the medical record. Patient has living will. Patient has healthcare POA. Patient's End of Life Decisions: End of life decisions were reviewed with the patient. The patient states his hyperlipidemia has been under good control since the last visit. Comorbid Illnesses: hypertension. Symptoms: denies chest pain, denies intermittent leg claudication, denies muscle pain and denies muscle weakness. Associated symptoms include no focal neurologic deficits and no memory loss. Medications: the patient is adherent with his medication regimen. He denies medication side effects. The patient is doing well with his hyperlipidemia goals. The patient presents for follow-up of essential hypertension. Symptoms: denies impaired vision, denies dyspnea, denies chest pain, denies intermittent leg claudication and denies lower extremity edema. Associated symptoms include no headache, no focal neurologic deficits and no memory loss. Blood pressure control has been good. Medications: the patient is adherent with his medication regimen. He denies medication side effects. Disease Management: the patient is doing well with his blood pressure goals. Review of Systems Constitutional: no chills, no fever and no night sweats. ENT: no hearing loss, no nasal congestion, no nasal discharge, no hoarseness and no sore throat. Cardiovascular: no chest pain, no intermittent leg claudication, no lower extremity edema, no palpitations and no syncope. Respiratory: no cough, no shortness of breath during exertion, no shortness of breath at rest and no wheezing. Genitourinary: no dysuria, no change in urinary frequency, no urinary hesitancy and no feelings of urinary urgency. Musculoskeletal: no arthralgias, no back pain and no myalgias. Neurological: no difficulty walking, no headache, no limb weakness, no numbness and no tingling. Psychiatric: no anxiety, no depression, no anhedonia and no substance use disorders. Endocrine: no recent weight gain and no recent weight loss. 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 Normal [employer] Tobacco Screening.on 022 Adult depression screening assessment No [facility] Phone: Fall risk assessment a) No falls within the last year [facility] Phone: Tobacco use status CPHS b) No [facility] Phone: Tobacco Screening. [facility] Work Phone: Progress Noteson 09-21-2021 Consultant Authentication Interface Message Text Patient was identified by name and date of . Patient at risk for falls:No Falls Risk protocol implemented: N/A Normal [employer] Telephone Encounteron 2021 Consultant Authentication Interface Message Text Called and spoke to regarding patient's drainage. stated that drainage is negligible and immeasurable above the amount she instills for a flush. She stated she will track drainage for upcoming appointment. NEAL Tomlinson, RN Clinical Coordinator Division of Trauma, Critical Care, Baker, and Acute Care Surgery Office Division Division [email or web address] Normal [employer] Office Visit ([facility] e)on 09-09-2021 Follow-up visit Diagnoses/Problems Encounter for preventive health examination (V70.0) (Z00.00) Hypercholesteremia (272.0) (E78.00) HTN (hypertension) (401.9) (I10) Benign prostatic hyperplasia with weak urinary stream (600.01,788.62) (N40.1,R39.12) Class 1 obesity due to excess calories with body mass index (BMI) of 30.0 to 30.9 in adult (278.00,V85.30) (E66.09,Z68.30) COPD (chronic obstructive pulmonary disease) (496) (J44.9) Obstructive sleep apnea (327.23) (G47.33) Chronic obstructive pulmonary disease, unspecified COPD type (496) (J44.9) Obstructive sleep apnea, adult (327.23) (G47.33) Abscess, abdomen B12 deficiency (266.2) (E53.8) 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.01) (I25.10) Chronic constipation (564.00) (K59.09) Orders Abscess, abdomen General Surgery Follow-Up Outpatient Follow-up [facility] for drain Status: Hold For - Scheduling,Retrospect cass Authorization Requested for: [id number] B12 deficiency, HTN (hypertension), Hypercholesteremia Vitamin B12, Serum; Status:Active - Retrospective Authorization; Requested for:07Oct2021; COPD (chronic obstructive pulmonary disease), Obstructive sleep apnea, adult Pulmonary Medicine Referral Evaluation and Treatment Evaluate AND Treat Status: Hold For - Scheduling,Retrospect cass Authorization Requested for: 09Sep2021 HTN (hypertension), Hypercholesteremia Albumin, Urine Spot; Status:Active - Retrospective Authorization; Requested for:07Oct2021; Follow-up visit in 1 month Outpatient Follow-up with labs prior. Status: Hold For - Scheduling,Retrospect cass Authorization Requested for: 09Sep2021 Complete Blood Count + Differential; Status:Active - Retrospective Authorization; Requested for:07Oct2021; Comprehensive Metabolic Panel; Status:Active - Retrospective Authorization; Requested for:07Oct2021; Hemoglobin A1C; Status:Active - Retrospective Authorization; Requested for:07Oct2021; Lipid Panel; Status:Active - Retrospective Authorization; Requested for:07Oct2021; Magnesium, Serum; Status:Active - Retrospective Authorization; Requested for:07Oct2021; TSH WITH REFLEX TO FREE T4 IF ABNORMAL; Status:Active - Retrospective Authorization; Requested for:07Oct2021; Vitamin D 25-Hydroxy; Status:Active - Retrospective Authorization; Requested for:07Oct2021; SocHx: Former smoker Tobacco Use Screening; Status:Complete; Done: 09Sep2021 Patient Discussion/Summary Impression: hyperlipidemia. Currently, the condition is stable. There are no changes in medication management. Other planned treatment includes exercise program and weight loss program. The plan was discussed with the patient. By signing my name below, raffaele Julien Scribe, attest that this documentation has been prepared under the direction and in the presence of Dr. Baez. Medications renewed and updated in patients chart. Referral to Pulmonary ordered. General Surgery follow ordered. Continue taking baby aspirin. Start back on Atorvastatin and Carvedilol. Start back on finasteride hydrochlorothiazide. Continue B12. Advised patient to keep his feet elevated when at home for the swollen legs. Hold off on Losartan until further notice. D/C Prevagan. D/C Trazodone. D/C Mens daily multi vitamin. Follow up in 1 months with labs prior. Chief Complaint Mr. FIDEL PALOMINO 86 year male is here today to establish care. Previous Dr. Seaman in [facility] last seen 08/2021. He was recently released from [facility] on 08/28/2021 DX with infection from Appendix surgery. History of Present Illness The patient states his hyperlipidemia has been under good control since the last visit. Comorbid Illnesses: hypertension. Symptoms: denies chest pain, denies intermittent leg claudication, denies muscle pain and denies muscle weakness. Associated symptoms include no focal neurologic deficits and no memory loss. Medications: the patient is adherent with his medication regimen. He denies medication side effects. The patient is doing well with his hyperlipidemia goals. The patient presents for follow-up of essential hypertension. Symptoms: denies impaired vision, denies dyspnea, denies chest pain, denies intermittent leg claudication and denies lower extremity edema. Associated symptoms include no headache, no focal neurologic deficits and no memory loss. Blood pressure control has been good. Medications: the patient is adherent with his medication regimen. He denies medication side effects. Disease Management: the patient is doing well with his blood pressure goals. Review of Systems Constitutional: no chills, no fever and no night sweats. Eyes: no blurred vision and no eyesight problems. ENT: no hearing loss, no nasal congestion, no nasal discharge, no hoarseness and no sore throat. Neck: no mass(es) and no swelling. Cardiovascular: no chest pain, no intermittent leg claudication, no lower extremity edema, no palpitatio (more content not included)... Normal [employer] Tobacco Screening.on 022 Adult depression screening assessment No [facility] Phone: Fall risk assessment a) No falls within the last year [facility] Phone: Tobacco use status CPHS b) No [facility] Phone: Tobacco Screening. Pediatric [facility] Phone: Telephone Encounteron 2021 Consultant Authentication Interface Message Text Notified Rubi calvo [facility] that Dr. Guerrero is willing to be the attending MD for home care. Normal [employer] Telephone Encounteron 2021 Consultant Authentication Interface Message Text Situation: Speak with Provider, Question about following provider Background: Rubi from [facility] asked if Dr. Guerrero would follow patient for homecare. Rubi stated that Dr. Bhat would follow but she is a fellow and they need her attending as well. Assessment: n/a Recommendation: Please call Rubi at [phone] Normal [employer] Discharge Planning Noteon Consultant Authentication Interface Message Text CM called and spoke with patient spouse on Tuesday regarding home care. At that time spouse did not have any choices for CM and said she would speak with CM later. CM reached out spouse today regarding home care agency choice. Spouse provided [facility] as her choice. CM requested to send to other agencies in the area in the event [facility] is unable to accept. Spouse was in agreement with that plan. Spouse stated she has not PCP to follow her . CM endorsed that an appointment was set up prior to her husbands discharge and the CM faced clinical information to the new PCP per her request. CM submitted referrals to seven home care agencies. Awaiting acceptance/denial. CM will reach out to spouse once she has accepting facilities. NEAL Recinos, ostomy nurse -Care Coordination Department Normal [employer] Consultson 08-28-2021 Consultant Authentication Interface Message Text Attestation signed by Goyo Briggs MD at 08/29/2021 7:13 AM Teaching Physician Note: delayed entry from 08/28/2021 I saw and evaluated the patient. I personally obtained the christie and critical portions of the history and physical exam. I reviewed the resident's documentation and discussed the patient with the resident. I agree with the resident's medical decision making as documented in the resident's note. Appendectomy followed by right paracolic fluid collection, drained successfully, and growing E coli Agree with our surgical colleagues regarding oral antimicrobial therapy and duration Goyo Briggs MD INITIAL VISIT/CONSULT Referred by: Nathan Hurst MD Primary MD: No primary care provider on file. Chief Complaint/Reason for Consult: Antibiotic abstract [place]/Hospital Course: This is a 86 year old year old male with history of HTN who presented to [facility] 08/25 as a transfer from [facility] for intra-abdominal fluid collection. Patient was recently hospitalized at [facility] 07/28-08/17 for abdominal pain s/p appendectomy c/b ileus. He was discharged home feeling well. He then developed dizziness and presyncope. He went back to [facility] ED and then sent him home. Since he continued to feel unwell, he then went to [facility] ED. They performed a CT abdomen/pelvis that showed a fluid collection in the right paracolic gutter. He was transferred to [facility] and IR placed a drain in the fluidcollection. On arrival. WBC 18. He was admitted to the MICU (unclear why, no hemodynamic instability or other obvious ICU requirements). He was started on broad spectrum antibiotics. General surgery has been following. Culture came back with pansensitive E. Coli. Patient was transitioned to IV ceftriaxone. Surgery recommended 4 days of antibiotics with surgical follow-up. ICU team prefers 2 weeks of IV ceftriaxone. ID consulted for antibiotic abstract. PICC has already been placed. Patient states he is feeling much better. He states that he never had a fever at home but was feeling cold. He states he was having significant abdominal pain in the right abdomen. He also had diarrhea which has resolved on its own. Now, he has no abdominal pain but right side where drain enters is mildly tender. No chest pain, SOB, diarrhea, rash. Appetite is ok. He is hoping to be discharged home today. No allergies to antibiotics. Patient denies history of abnormal heart rhythm or aneurysm. Microbiology: -08/25 blood culture: no growth -08/25 drain culture: E. Coli, rare normal skin brett -08/26 C. Diff: negative Past Medical History: Past Medical History: Diagnosis Date * HLD (hyperlipidemia) * HTN (hypertension) Past Surgical History: Past Surgical History: Procedure Laterality Date * APPENDECTOMY; Allergies: No Known Allergies Medications: Current Facility-Administered Medications Medication Dose Route Frequency Last Rate Last Admin * melatonin tablet 3 mg Oral At Bedtime 3 mg at 08/27/212108 * cefTRIAXone (ROCEPHIN) 2,000 mg in dextrose 50 mL ivpb 2,000 mg Intravenous Q12H Antibiotic 2,000 mg at 08/28/21 0916 * bisacodyl (DULCOLAX) 10 MG suppository 10 mg Rectal Daily PRN * docusate sodium (COLACE) capsule 100 mg Oral 2x Daily * polyethylene glycol (MIRALAX) 17 g packet 17 g Oral Daily * acetaminophen (TYLENOL) 325 mg tablet 650 mg Oral Q6H PRN * heparin (porcine) 5,000 units/mL injection 5,000 Units Subcutaneous Every End of Shift 5,000 Units at 08/28/21 0531 * senna (SENOKOT) tablet 8.6 mg Oral At Bedtime 8.6 mg at 08/25/212107 * aspirin 81 MG chewable tablet 81 mg Oral Daily 81 mg at 08/28/21 08 * atorvastatin (LIPITOR) tablet 40 mg Oral At Bedtime 40 mg at 08/27/212108 * famotidine (PEPCID) tablet 30 mg Oral Daily 30 mg at 08/28/21 08 * sodium chloride 0.9% 0.9 % flush syringe SOLN 10 mL Intravenous Push Every 8 hours 10 mL at 08/28/21 0915 Family History: Family history of hypertension Social History: Social History Tobacco Use * Smoking status: Former Smoker * Smokeless tobacco: Not on file Substance Use Topics * Alcohol use: Yes Comment: social * Drug use: Never Immunization History Administered Date(s) Administered * Influenza, Injectable, MDCK, Preservative Free, Quadrivalent (RUM=132) 05/07/2020, 06/23/2021 * Moderna SARS-COV-2 (COVID-19) vaccine, mRNA, spike protein, LNP, preservative free, 100 mcg or 50 mcg dose (LZP=070) 09/02/2020, 09/30/2020, 06/09/2021 REVIEW OF SYSTEMS: 10 point ROS performed which is otherwise negative unless noted in HPI. PHYSICAL EXAMINATION: Vital sign ranges over the past 24 hours (retrieved 08/28/2021 at 11:02 AM): Tmax (24 hours): 98.6 ???F (37 ???C) Pulse Av.8 Min: 67 Max: 95 Systolic (24hrs), Av , Min:100 , Max:156 Diastolic (24hrs (more content not included)... Normal [employer] Progress Noteson 08-28-2021 Consultant Authentication Interface Message Text CASE MANAGEMENT CM received VM from [facility] at [phone], intake at [facility] regarding name of patient's PCP. CM checked charted, no name was available. CM contacted patient's who provided physician name of Ann Baez out of [place], [place]. Patient has appointment with Dr. Baez 09/09/21. Patient's also stated [facility] contacted her and she provided the same PCP information for them as well. CM called Christina at [facility], however, she was not available at this time, CM left a VM pertaining to the new PCP information. Tavo DE JESUS, RN Inpatient Direct Care WorkerBlock Hacker: [phone] ([phone]) Normal [employer] Consultant Authentication Interface Message Text CASE MANAGEMENT CM aware from prior CM's note, patient needs home PT/OT arranged. Patient's spouse accepted [facility] for [facility]. This CM contacted [facility] service at [phone] or [phone]. CM spoke to Christina at intake and faxed necessary notes to [phone]. [facility] to contact this CM tomorrow morning. Tavo DE JESUS, RN Inpatient Direct Care WorkerBlock Hacker: [phone] ([phone]) Normal [employer] Consultant Authentication Interface Message Text [employer] Pulmonary, Critical Care, AND Sleep Medicine MICU ATTENDING NOTE Code Status: DNR-CCA and DNI DPOAHC/NOK: LOS: 3 days I saw and evaluated Mr. Fidel Palomino. I personally obtained christie and critical portions of the history and physical examination. I reviewed the resident's documentation and discussed the patient with the residents and the MICU team. I agree with the resident's medical decision making as documented in their note. No Critical Care time. Subjective: Feeling much better. Objective: Allergy: Patient has no known allergies. Patient Vitals for the past 24 hrs: BP Temp Temp src Pulse Resp SpO2 O2 Device O2 Flow Rate (l/min) 08/28/21 1000 122/81 -- -- 94 28 98 % -- -- 08/28/21 0900 137/84 -- -- 95 27 97 % -- -- 08/28/21 0800 152/84 98.6 ???F (37 ???C) Oral 88 32 95 % Room air -- 08/28/21 0700 135/83 -- -- 68 23 96 % -- -- 08/28/21 0600 143/68 -- -- 74 28 95 % -- -- 08/28/21 0500 119/72 -- -- 75 22 92 % -- -- 08/28/21 0400 126/72 -- -- 74 26 95 % Nasal cannula 1 08/28/21 0330 -- 98.3 ???F (36.8 ???C) Oral -- -- -- -- -- 08/28/21 0300 112/46 -- -- 83 22 83 % -- -- 08/28/21 0200 100/55 -- -- 81 21 99 % -- -- 08/28/21 0140 -- -- -- 70 22 100 % Nasal cannula 1 08/28/21 0118 -- -- -- 78 20 79 % Nasal cannula 1 08/28/21 0100 120/53 -- -- 79 21 93 % -- -- 08/28/21 0000 123/65 98.2 ???F (36.8 ???C) Oral 85 24 98 % CPAP 1 08/27/21 2330 -- -- -- 67 23 97 % CPAP 1 08/27/21 2300 124/75 -- -- 73 23 96 % -- -- 08/27/21 2200 156/78 -- -- 81 22 100 % -- -- 01/27/22 2122 -- -- -- 78 27 100 % CPAP 1 08/27/21 2100 132/74 -- -- 75 29 100 % -- -- 08/27/21 2000 135/69 98 ???F (36.7 ???C) Axillary 72 21 100 % Nasal cannula 1 08/27/21 1900 140/75 -- -- 78 29 100 % -- -- 08/27/21 1800 138/74 -- -- 77 32 100 % Room air -- 08/27/21 1700 138/73 -- -- 73 28 100 % -- -- 08/27/21 1600 130/72 98.5 ???F (36.9 ???C) Oral 73 22 100 % Room air -- 08/27/21 1500 131/74 -- -- 83 30 92 % -- -- 08/27/21 1400 131/68 -- -- 85 30 95 % Room air -- 08/27/21 1300 127/76 -- -- 86 31 96 % -- -- 08/27/21 1200 128/73 98.2 ???F (36.8 ???C) Oral 83 32 95 % Room air -- 08/27/21 1100 111/64 -- -- 83 30 99 % -- -- Intake/Output Summary (Last 24 hours) at 08/28/2021 1032 Last data filed at 08/28/2021 0916 Gross per 24 hour Intake 1180 ml Output 1940 ml Net -760 ml Arterial Blood Gases None Basic Metabolic Panel Na K Cl CO2 Gap Glu BUN Cr Ca Mg PO4 08/27/218 1.8 08/27/218 134 4.0 94 33 11 149 25 1.16 7.6 08/26/21 0431 1.8 08/26/21 0431 4.7 08/26/21 0431 137 3.8 89 32 20 127 26 1.40 8.0 08/25/21 1340 135 3.7 90 32 17 136 26 1.63 7.7 Creatinine clearance from [facility]: 50 ml/min using IBW 75.3 kg (actual weight 93.7 kg ignored) GFR from MDRD: 60.0 ml/min/1.73 sq m age 86 yr, cr=1.16 on 08/27/2021, race White CBC/PT/INR WBC RBC Hgb Hct MCV RDW Plt PT aPTT INR 08/27/21417 9.1 3.11 9.2 27.5 88 13.8 255 08/26/21 0431 11.5 3.05 8.9 27.3 90 13.7 225 08/25/21 1340 16.5 3.22 9.5 28.8 90 13.5 236 Hepatic/Biliary/Pancr eas T Prot Albumin D Bili T Bili Alk Phos ALT AST Amylase Lipase 08/27/21417 4.9 1.6 0.20 0.7 159 57 27 08/26/21 043 4.6 1.5 0.20 0.6 173 77 39 Cardiac Troponin I CK total CK-MB BNP 08/25/21 1340 <0.030 Comment: Range <=0.04 ng/mL: Negative Interpretation: Repeat testing in four to six hours if clinically indicated. Range 0.04-0.11 ng/mL: Suspected for acute myocardial injury. Interpretation: Serial measurements may be necessary to confirm or exclude the diagnosis of acute coronary syndrome. Repeat testing in four to six hours if clinically indicated. Range >=0.12 ng/mL: Results consistent with myocardial injury. Interpretation: Clinical and laboratory correlation recommended. Assessment AND Plan: 1) RLQ abscess with E. coli Appreciate ID's assistance Levoflox 2) Decompensated cirrhosis Continue supportive care 3) JOE (AHI21) Continue auotPAP + 1L O2 4) Disposition D/C home today to follow up with Prabhakar (new PCP). Carly Guerrero MD, MPH Division of Pulmonary, Critical Care, AND Sleep Medicine [employer] [facility] [place] [phone] Normal [facility] BASIC METABOLIC PANELon 08-02 Anion gap [Moles/Vol] 11 mmol/L Normal 10-20 [facility] Comment on above: Performed By: #### L IP, MG, HEPATIC, CH8 #### [facility] [address] [place] [address], [phone] Calcium [Mass/Vol] 7.6 mg/dL Low 8.4-10.4 [facility] Comment on above: Performed By: #### L IP, MG, HEPATIC, CH8 #### [facility] [address] [place] [address], Chloride [Moles/Vol] 94 mmol/L Low 97-111 [facility] Comment on above: Performed By: #### L IP, MG, HEPATIC, CH8 #### [facility] [address] [place] [address], CO2 [Moles/Vol] 33 mmol/L High 21-30 [facility] Comment on above: Performed By: #### L IP, MG, HEPATIC, CH8 #### [facility] [address] [place] [address], Creatinine [Mass/Vol] 1.16 mg/dL Normal 0.80-1.30 [facility] Comment on above: Performed By: #### L IP, MG, HEPATIC, CH8 #### [facility] [address] [place] [address], ESTIMATED GFR (CKD-EPI) 58 mL/min/1.73sqm Low >=60 [facility] Comment on above: Performed By: #### L IP, MG, HEPATIC, CH8 #### [facility] [address] [place] [address], Glucose [Mass/Vol] 149 mg/dL High 80-116 [facility] Comment on above: Performed By: #### L IP, MG, HEPATIC, CH8 #### [facility] [address] [place] [address], Potassium [Moles/Vol] 4.0 mmol/L Normal 3.3-5.3 [facility] Comment on above: Performed By: #### L IP, MG, HEPATIC, CH8 #### [facility] [address] [place] [address], Sodium [Moles/Vol] 134 mmol/L Low 135-148 [facility] Comment on above: Performed By: #### L IP, MG, HEPATIC, CH8 #### [facility] [address] [place] [address], Urea nitrogen [Mass/Vol] 25 mg/dL High 8-22 [facility] Comment on above: Performed By: #### L IP, MG, HEPATIC, CH8 #### [facility] [address] [place] [address], CBC WITH DIFFERENTIALon 08-02 Basophils (Bld) [#/Vol] 0.08 10*3/uL Normal 0.00-0.20 [facility] Comment on above: Performed By: #### C BC #### [facility] [address] [place] [address], Basophils/100 WBC (Bld) 0.9 % Normal <=1.9 [facility] Comment on above: Performed By: #### C BC #### [facility] [address] [place] [address], Eosinophils (Bld) [#/Vol] 0.25 10*3/uL Normal 0.00-0.70 [facility] Comment on above: Performed By: #### C BC #### [facility] [address] [place] [address], Eosinophils/100 WBC (Bld) 2.7 % Normal 0.1-4.0 [facility] Comment on above: Performed By: #### C BC #### [facility] [address] [place] [address], Erythrocyte distribution width (RBC) [Ratio] 13.8 % Normal 11.5-14.5 [facility] Comment on above: Performed By: #### C BC #### [facility] [address] [place] [address], Hematocrit (Bld) [Volume fraction] 27.5 % Low 41.0-53.0 [facility] Comment on above: Performed By: #### C BC #### [facility] [address] [place] [address], Hemoglobin (Bld) [Mass/Vol] 9.2 g/dL Low 13.9-16.3 [facility] Comment on above: Performed By: #### C BC #### [facility] [address] [place] [address], Lymphocytes (Bld) [#/Vol] 0.92 10*3/uL Low 1.00-4.80 [facility] Comment on above: Performed By: #### C BC #### [facility] [address] [place] [address], Lymphocytes/100 WBC (Bld) 10.1 % Low 24.0-44.0 [facility] Comment on above: Performed By: #### C BC #### [facility] [address] [place] [address], MCH (RBC) [Entitic mass] 29.4 pg Normal 26.0-34.0 [facility] Comment on above: Performed By: #### C BC #### [facility] [address] [place] [address], MCHC (RBC) [Mass/Vol] 33.3 g/dL Normal 32.0-35.9 [facility] Comment on above: Performed By: #### C BC #### [facility] [address] [place] [address], MCV (RBC) [Entitic vol] 88 fL Normal 80-100 [facility] Comment on above: Performed By: #### C BC #### [facility] [address] [place] [address], MONOCYTE DISTRIBUTION WIDTH Normal [facility] Comment on above: Performed By: #### C BC #### [facility] [address] [place] [address], Monocytes (Bld) [#/Vol] 0.87 10*3/uL Normal 0.20-1.00 [facility] Comment on above: Performed By: #### C BC #### [facility] [address] [place] [address], Monocytes/100 WBC (Bld) 9.5 % Normal 2.0-11.0 [facility] Comment on above: Performed By: #### C BC #### [facility] [address] [place] [address], Neutrophils (Bld) [#/Vol] 7.00 10*3/uL Normal 1.50-8.00 [facility] Comment on above: Performed By: #### C BC #### [facility] [address] [place], [place], Neutrophils/100 WBC (Bld) 76.7 % High 31.0-76.0 [facility] Comment on above: Performed By: #### C BC #### [facility] [address], [place], Platelet mean volume (Bld) [Entitic vol] 7.3 fL Low 7.5-11.2 [facility] Comment on above: Performed By: #### C BC #### [facility] [address] [place], [place], Platelets (Bld) [#/Vol] 255 10*3/uL Normal 150-400 [facility] Comment on above: Performed By: #### C BC #### [facility] [address], [place], RBC (Bld) [#/Vol] 3.11 10*6/uL Low 4.50-5.90 [facility] Comment on above: Performed By: #### C BC #### [facility] [address], [place], WBC (Bld) [#/Vol] 9.1 10*3/uL Normal 4.5-11.5 [facility] Comment on above: Performed By: #### C BC #### [facility] [address], [place], CERULOPLASMINon 08-27-2021 CERU 23 mg/dL Normal 20-52 [facility] Comment on above: Performed By: #### C BC #### [facility] [address], [place], Care Plan Noteon 08-27-2021 Consultant Authentication Interface Message Text Problem: Infection: Goal: Will be free of signs and symptoms of infection Outcome: Progressing Intervention: Monitor vital signs (per order) Note: Hourly vitals. Intervention: Assess signs and symptoms of infection (ongoing) Note: Afebrile, receiving antibiotics as ordered. BP stable. Problem: Routine Care: Goal: Patient care will be managed and maintained throughout hospital stay per unit specific routine care procedure Outcome: Progressing Intervention: Implement Routine Care MICU Procedure (continuous) Note: Hourly vitals and I/O's, continuous c-r monitoring, labs as ordered, purposeful hourly rounding. Turn and reposition q2hrs. Problem: Acute Pain: Goal: Ability to identify pain intensity on a pain scale and rate it consistently will be achieved and maintained Outcome: Progressing Intervention: Assess pain routinely using the developmentally appropriate pain scale (continuous) Note: Pain assessment q4hrs using numeric pain scale. Problem: VTE Prophylaxis: Goal: Will be free of DVT Outcome: Progressing Intervention: Implement Sequential Compression Device (SCD) Procedure (continuous) Note: SCD's in place. Encourage AROM. Problem: Safety: Goal: Patient will remain free of falls during hospital stay Outcome: Progressing Intervention: Assess for risk related to falls using age appropriate scale (continuous) Note: Falls risk assessment qshift, siderails in place, call light within reach, anticipate patient needs, purposeful hourly rounding.Slipper socks when ambulating. Problem: Discharge Planning: Goal: Discharge needs of the adult patient will be met Outcome: Progressing Intervention: Assess patient/family for self-management skills (ongoing) Note: Patient getting nocturnal sleep study. Possibly d/c tomorrow. Intervention: Involve patient/family/caregi vers in discharge process (continuous) Note: Patient's updated on . Problem: Alteration in Respiratory Status: Goal: Achieve Optimal Respiratory Status with Minimal Ventilatory/Oxygen Support Outcome: Progressing Intervention: Implement Oxygen Therapy (Adult) Procedure (continuous) Note: 2L NC especially when sleeping. Intervention: Monitor pulse ox (per order) Note: Continuous pulse ox monitoring. Normal [facility] FERRITINon 08-27-2021 ERIC 416.1 ng/mL High 11.5-300.0 [facility] [facility] Comment on above: Performed By: #### C BC #### [facility] [address] [place] [address], FULL LIPID PROFILEon 022 Cholesterol [Mass/Vol] 60 mg/dL Normal <200 [facility] Comment on above: Performed By: #### L IP, MG, HEPATIC, CH8 #### [facility] [address] [place] [address], Cholesterol in LDL [Mass/Vol] 38 mg/dL Normal <111 [facility] Comment on above: Performed By: #### L IP, MG, HEPATIC, CH8 #### [facility] [address] [place] [address], Cholesterol.total/C holesterol in HDL [Mass ratio] 3.53 {ratio} Normal <5.00 [facility] Comment on above: Performed By: #### L IP, MG, HEPATIC, CH8 #### [facility] [address] [place] [address], HDL CHOL 17 mg/dL Low >44 [facility] Comment on above: Performed By: #### L IP, MG, HEPATIC, CH8 #### [facility] [address] [place] [address], LDL/HDL 2.24 Normal <3.57 [facility] Comment on above: Performed By: #### L IP, MG, HEPATIC, CH8 #### [facility] [address] [place] [address], NON-HDL CHOLESTEROL 43 mg/dL Normal <130 [facility] Comment on above: Performed By: #### L IP, MG, HEPATIC, CH8 #### [facility] [address] [place] [address], Triglyceride [Mass/Vol] 42 mg/dL Normal <151 [facility] Comment on above: Performed By: #### L IP, MG, HEPATIC, CH8 #### [facility] [address] [place] [address], HEMOGLOBIN A1Con 08-27-2021 Glucose [Mass/Vol] 146 mg/dL Normal [facility] Comment on above: Order Comment: HbA1c of 5.7-6.4% have increased risk for diabetes and CV(Source :ADA 2014 Standard of Medical Care in Diabetes) Performed By: #### L IP, MG, HEPATIC, CH8 #### [facility] [address] [place] [address], HbA1c (Bld) [Mass fraction] 6.7 % High 4.0-5.6 [facility] Comment on above: Order Comment: HbA1c of 5.7-6.4% have increased risk for diabetes and CV(Source :ADA 2014 Standard of Medical Care in Diabetes) Performed By: #### L IP, MG, HEPATIC, CH8 #### [facility] [address] [place] [address], HEPATIC FUNCTION PANELon Albumin [Mass/Vol] 1.6 g/dL Low 3.4-5.1 [facility] Comment on above: Performed By: #### L IP, MG, HEPATIC, CH8 #### [facility] [address] [place] [address], ALK 159 IU/L Normal 40-200 [facility] Comment on above: Performed By: #### L IP, MG, HEPATIC, CH8 #### [facility] [address] [place] [address], ALT [Catalytic activity/Vol] 57 U/L High 7-40 [facility] Comment on above: Performed By: #### L IP, MG, HEPATIC, CH8 #### [facility] [address] [place] [address], AST [Catalytic activity/Vol] 27 U/L Normal 7-40 [facility] Comment on above: Performed By: #### L IP, MG, HEPATIC, CH8 #### [facility] [address] [place] [address], Bilirubin [Mass/Vol] 0.7 mg/dL Normal 0.1-1.5 [facility] Comment on above: Performed By: #### L IP, MG, HEPATIC, CH8 #### [facility] [address] [place] [address], Bilirubin.direct [Mass/Vol] 0.20 mg/dL Normal 0.10-0.30 [facility] Comment on above: Performed By: #### L IP, MG, HEPATIC, CH8 #### [facility] [address] [place] [address], Protein [Mass/Vol] 4.9 g/dL Low 5.7-8.1 [facility] Comment on above: Performed By: #### L IP, MG, HEPATIC, CH8 #### [facility] [address] [place] [address], HEPATITIS B SURFACE ANTIBODY on 08-27-2021 ANTI-HBS < 3.1 Normal [facility] Comment on above: Order Comment: Nonre active: Samples < 7.5 mIU/mL Reactive: Samples >/= 10.0 mIU/mL The accepted criteria for immunity to HBV is anti-HBs activity >/= 10 mIU/mL, as defined by the WHO International Reference Preparation. Performed By: #### A NTI-HBS, HBSAG #### [facility] [address] [place] [address], HEPATITIS B SURFACE ANTIGENo n 08-27-2021 HBSAG Non-Reactive Normal Non-Reactive [facility] Comment on above: Performed By: #### A NTI-HBS, HBSAG #### [facility] [address] [place] [address], HEPATITIS C ANTIBODYon 08-27 HCV Non-Reactive Normal Nonreactive [facility] Comment on above: Performed By: #### C BC #### [facility] [address] [place] [address], IRON AND TIBCon 08-27-2021 % SAT CORRECT PRD 56 % High 20-55 [facility] Comment on above: Performed By: #### C BC #### [facility] [address] [place] [address], FE CORRECT PRD 72 ug/dL Normal 30-125 [facility] Comment on above: Performed By: #### C BC #### [facility] [address] [place] [address], TIBC CORRECT PRD 129 ug/mL Low 200-300 [facility] Comment on above: Performed By: #### C BC #### [facility] [address] [place] [address], TRANSFER CORRECT PRD 92 mg/dL Low 210-375 [facility] Comment on above: Performed By: #### C BC #### [facility] [address] [place] [address], MAGNESIUMon 08-27-2021 Magnesium [Mass/Vol] 1.8 mg/dL Normal 1.6-2.8 [facility] Comment on above: Performed By: #### L IP, MG, HEPATIC, CH8 #### [facility] [address] [place] [address], [phone] Progress Noteson 08-27-2021 Consultant Authentication Interface Message Text Pharmacokinetic Dosing Service - VANCOMYCIN Name: Fidel Palomino Age:[age] year old Gender: male Ht: 5' 11 Wt: 92.9 kg Indication: Gastrointestinal/Intr aabdominal Desired Ranges: 10-15 Day of therapy: 2 Assessment and Recommendations: 08/27/21 JPETERSON1- Day2: Gastrointestinal/Intr aabdominal; Renal function: DIONISIO improved; Current Level: 8.6. Vancomycin adjustment: 1750mg once. Next level Due:08/28, Level not ordered The vancomycin level resulted as 8.6mcg/mL on 08/27 @ 0900 24 hrs after the last dose (24 hours after the previous dose). The current dose of vancomycin requires adjustment due to significant change in Renal Function. The dose will be increased to 1750 mg Once to start on 08/27 @ 1600. The next vancomycin level is due 24 hrs after the last dose. Pharmacy will post notes for trough levels upon return and for dose changes. The medication regimen has been updated per consult agreement procedures. Current Dose Active Vancomycin Orders (From admission, onward) Start Stop 08/25/21 1441 vancomycin dosing pharmacy consult Other, As Directed Question: Suspected Source/Reason for Therapy Answer: Gastrointestinal/Intr aabdominal -- Lab Values: Creatinine Date Value Ref Range Status 08/27/2021 1.16 0.80 - 1.30 mg/dL Final 08/26/2021 1.40 (H) 0.80 - 1.30 mg/dL Final 08/25/2021 1.63 (H) 0.80 - 1.30 mg/dL Final Lab Results Component Value Date/Time VANCTR 8.6 (L) 08/27/2021 08:57 AM No results found for: VANCR Serum creatinine: 1.16 mg/dL 08/27/21 0418 Estimated creatinine clearance: 55.18 mL/min Culture(s): PENDING Melany Chavarria [facility] - Department of Pharmacy Services Normal [facility] Consultant Authentication Interface Message Text SW ICU Note: SW made aware by , pt will need home going IV ABX. CM and CSI aware and will follow for DC planning. Bailey Casillas [facility] Care Coordination Department Normal [facility] Consultant Authentication Interface Message Text [employer] [facility] Services provided for: Patient and Family Services initiated by: Staff Straw Baler Reason for services: Initial visit Assessment/Narrative: Straw Baler knocked and entered patient's room to introduce self and share availability of spiritual care. Straw Baler found patient supine in bed, awake and alert, visiting with his . Patient and spoke briefly with this family service aide about their [id number] marriage, their children, and their grandchildren as well as the kena they have experienced throughout their life together. Interventions: Introduction of service Outcome: Patient and spouse aware of family service aide availability Plan of Care: On-going visits 1-2x/week while patient is on MICU. Diana Smart MDiv Staff Straw Baler, (she/her/hers) Ext: [phone] Pager: [phone] Normal [facility] Authentication Interface Message Text [facility] Pulmonary, Critical Care, AND Sleep Medicine MICU ATTENDING NOTE Code Status: DNR-CCA and DNI DPOAHC/NOK: LOS: 2 days I saw and evaluated Mr. Fidel Palomino. I personally obtained christie and critical portions of the history and physical examination. I reviewed the resident's documentation and discussed the patient with the residents and the MICU team. I agree with the resident's medical decision making as documented in their note. No Critical Care time. Subjective: Inpatient PSG on MT last night. Denies complaints today. Objective: Allergy: Patient has no known allergies. Patient Vitals for the past 24 hrs: BP Temp Temp src Pulse Resp SpO2 O2 Device O2 Flow Rate (l/min) 08/27/21 0900 144/74 -- -- 81 25 92 % -- -- 08/27/21 0800 125/77 98.3 ???F (36.8 ???C) Oral 72 24 100 % Room air -- 08/27/21 0700 131/66 -- -- 79 24 99 % -- -- 08/27/21 0600 135/72 -- -- 74 26 99 % -- -- 08/27/21 0500 127/60 -- -- 75 26 98 % -- -- 08/27/21 0400 129/74 97.7 ???F (36.5 ???C) Oral 73 25 97 % -- -- 08/27/21 0300 128/62 -- -- 75 27 97 % -- -- 08/27/21 0203 -- -- -- -- -- -- Nasal cannula 2 08/27/21 0200 108/64 -- -- 73 23 97 % -- -- 08/27/21 0122 -- -- -- -- -- -- Nasal cannula 1 08/27/21 0100 98/50 -- -- 76 16 90 % -- -- 08/27/21 0000 94/51 97.9 ???F (36.6 ???C) Oral 73 22 90 % -- -- 08/26/21 2300 131/70 -- -- 71 28 100 % Room air -- 08/26/21 2200 127/62 -- -- 72 24 100 % -- -- 08/26/21 2100 119/58 -- -- 71 25 100 % -- -- 08/26/21 2000 99/64 97.6 ???F (36.4 ???C) Oral 66 20 100 % -- -- 08/26/21 1900 104/56 -- -- 66 19 100 % -- -- 08/26/21 1800 105/59 -- -- 72 22 100 % Nasal cannula 2 08/26/21 1700 103/59 -- -- 70 20 100 % -- -- 08/26/21 1600 125/63 97.4 ???F (36.3 ???C) Oral 78 27 99 % Nasal cannula 2 08/26/21 1500 129/69 -- -- 73 22 98 % -- -- 08/26/21 1400 123/65 -- -- 71 25 94 % -- -- 08/26/21 1300 112/62 -- -- 67 25 98 % -- -- 08/26/21 1235 -- 97.6 ???F (36.4 ???C) Oral -- -- -- -- -- 08/26/21 1200 111/64 -- -- 69 24 96 % Nasal cannula 2 08/26/21 1100 112/75 -- -- 66 23 98 % Nasal cannula 2 Fingerstick Glucose None Intake/Output Summary (Last 24 hours) at 08/27/2021 1031 Last data filed at 08/27/2021 0900 Gross per 24 hour Intake 1600 ml Output 1820 ml Net -220 ml TTE from yesterday was reviewed: Summary ??? Normal LV systolic function. The left ventricular ejection fraction (LVEF) is 65%. Normal RV systolic function. No left ventricular hypertrophy is present. Mild tricuspid valve regurgitation. Fibrocalcific changes are seen in the aortic valve. Noninvasive hemodynamic assessment is consistent with normal pulmonary artery systolic pressure, a low CVP. See above for further details. RUQ ultrasound from yesterday was reviewed: IMPRESSION: 1. Cirrhotic liver with a trace amount of perihepatic ascites. No focal suspicious hepatic lesion identified. 2. Diffuse gallbladder wall thickening is nonspecific and may occur secondary to cirrhosis and ascites. No cholelithiasis is demonstrated. Basic Metabolic Panel Na K Cl CO2 Gap Glu BUN Cr Ca Mg PO4 08/27/21417 1.8 08/27/21417 134 4.0 94 33 11 149 25 1.16 7.6 08/26/21 0431 1.8 08/26/21 0431 4.7 08/26/21 0431 137 3.8 89 32 20 127 26 1.40 8.0 08/25/21 1340 135 3.7 90 32 17 136 26 1.63 7.7 08/25/21 0510 1.8 08/25/21 0510 132 3.7 88 33 15 134 28 1.96 7.9 Creatinine clearance from [facility]ro[place]-Gault: 50 ml/min using IBW 75.3 kg (actual weight 92.9 kg ignored) GFR from MDRD: 60.0 ml/min/1.73 sq m age 86 yr, cr=1.16 on 08/27/2021, race White CBC/PT/INR WBC RBC Hgb Hct MCV RDW Plt PT aPTT INR 08/27/21417 9.1 3.11 9.2 27.5 88 13.8 255 08/26/21 0431 11.5 3.05 8.9 27.3 90 13.7 225 08/25/21 1340 16.5 3.22 9.5 28.8 90 13.5 236 08/25/21 0510 1.36 08/25/21 0510 18.2 3.67 10.6 33.0 90 13.8 267 WBC/Diff Neutro% Lymph% Eos% Seg% Bands% 08/27/21 0418 76.7 10.1 2.7 Hepatic/Biliary/Pancr eas T Prot Albumin D Bili T Bili Alk Phos ALT AST Amylase Lipase 08/27/218 4.9 1.6 0.20 0.7 159 57 27 08/26/21 0431 4.6 1.5 0.20 0.6 173 77 39 08/25/21 0510 5.6 1.7 0.40 0.7 229 125 83 08/25/21 0510 38 Cardiac Troponin I CK total CK-MB BNP 08/25/21 1340 <0.030 Comment: Range <=0.04 ng/mL: Negative Interpretation: Repeat testing in four to six hours if clinically indicated. Range 0.04-0.11 ng/mL: Suspected for acute myocardial injury. Interpretation: Serial measurements may be necessary to confirm or exclude the diagnosis of acute coronary syndrome. Repeat testing in four to six hours if clinically indicated. Range >=0.12 ng/mL: Results consistent with myocardial injury. Interpretation: Clinical and laboratory correlation recommended. 08/25/21 0520 321.0 Pyogen Culture Pyogen culture 08/25/21 1612 (more content not included)... Normal [facility] [employer] [facility] Consultant Authentication Interface Message Text [facility] DIVISION OF ACUTE CARE SURGERY --------- GENERAL INFORMATION -------- EMERGENCY GENERAL SURGERY NOTE Patient Name: Fidel Palomino Admission Date: 08/25/2021 Patient seen and examined on 08/27/2021 ------- INTERVAL HISTORY/EVENTS ----- Background Narrative: Fidel Palomino is a 86 year old male with a h/o HTN, HLD, BPH, remote left inguinal hernia repair with mesh, s/p appendectomy 07/28/21 (done at [facility]) c/b ileus who presented to OSH ED for lightheadedness and dizziness. He was shaving and felt lightheaded, denies LOC or falling. He was hospitalized after his appendectomy 07/28-08/17. He felt well for 2-3 days after discharge but began feeling lightheaded for which he went to an ED and discharged after recommendation to stay hydrated. He subsequently was found to have a UTI. CT A/P done without contrast at OSH showing an abdominal fluid collection in the right paracolic gutter. He is a former smoker, quit 30 years ago. Smoked 1 pack/day for 20 years. ??? Hospital Course/Procedures: 08/25/2021: Admitted to [facility], IR drain placed. Events in last 24 hours: Tolerating regular diet. Having BMs. Drain with serosanguinous output. Oxygen requirements continue to decrease, 2L NC PHYSICAL EXAM Vitals: Vital sign ranges over the past 24 hours (retrieved 08/27/2021 at 9:05 AM): Tmax (24 hours): 98.3 ???F (36.8 ???C) Pulse Av.9 Min: 66 Max: 79 Systolic (24hrs), Av , Min:94 , Max:135 Diastolic (24hrs), Av, Min:50, Max:83 MAP (mmHg) Av.5 mmHg Min: 65 mmHg Max: 94 mmHg Resp Av.5 Min: 16 Max: 28 SpO2 Av.7 % Min: 90 % Max: 100 % 24 Hour Input/Output In: 1660 (17.8 mL/kg) [P.O.:840; I.V.:800 (0.4 mL/kg/hr)] Out: 1830 (19.7 mL/kg) [Urine:1760 (0.8 mL/kg/hr); Drainage:70] Net: -170 Weight: 93 kg Physical Exam: Physical Exam Constitutional: General: He is not in acute distress. Appearance: He is not toxic-appearing. HENT: Head: Normocephalic and atraumatic. Mouth/Throat: Mouth: Mucous membranes are moist. Pharynx: Oropharynx is clear. Eyes: Extraocular Movements: Extraocular movements intact. Pupils: Pupils are equal, round, and reactive to light. Cardiovascular: Rate and Rhythm: Normal rate and regular rhythm. Pulses: Normal pulses. Pulmonary: Effort: Pulmonary effort is normal. No respiratory distress. Abdominal: Palpations: Abdomen is soft. There is no mass. Tenderness: There is no abdominal tenderness. There is no guarding or rebound. Comments: IR drain in place with minimal SS output, abdomen is soft, mildly distended, nontender, tympanic on percussion Musculoskeletal: General: No deformity or signs of injury. Cervical back: Normal range of motion. Skin: General: Skin is warm and dry. Coloration: Skin is not jaundiced. Neurological: General: No focal deficit present. Mental Status: He is alert and oriented to person, place, and time. LABORATORY RESULTS (LAST 24 HOURS) CBC/PT/INR WBC RBC Hgb Hct MCV RDW Plt PT aPTT INR 08/27/21417 9.1 3.11 9.2 27.5 88 13.8 255 Basic Metabolic Panel Na K Cl CO2 Gap Glu BUN Cr Ca Mg PO4 08/27/21417 1.8 08/27/21417 134 4.0 94 33 11 149 25 1.16 7.6 Arterial Blood Gases None IMAGING RESULTS - Last 24 hours (PERSONALLY REVIEWED) None DIAGNOSIS AND PLAN Diagnoses: 1. R paracolic gutter fluid collection 2. Hypoxia Assessment: Fidel Palomino is a 86 year old male w/ PMH as above w/ recent h/o appendectomy c/b ileus and now R paracolic gutter fluid collection and hypoxia. Abdominal symptoms have improved since IR drain placement yesterday. Oxygen requirements continue to improve and are now at patient's home oxygen requirements of 2L. Plan - s/p IR intraabdominal drain placement for paracolic fluid collection - Cx growing nguyễn-sensitive E Coli - Would recommend changing abx to augmentin or bactrim PO for a 4-day course (end date: 08/29) - Okay to discharge from [facility] perspective - Follow-up in 2 weeks with his surgeon at [facility] or at [facility] if need be Remaining of care per MICU team Patient seen with and assessment/plan discussed with Dr. Garcia. Denise Lincoln MD, MPH General Surgery PGY-1 [facility] Consult: [phone] [facility] Floor: [phone] Plan not finalized until signed by attending, Dr. Garcia. ATTENDING ADDENDUM OF RESIDENT NOTE I saw and evaluated the patient on the above date of service and discussed the care of the patient with the resident. I agree with the history and physical exam as documented in the note above and have made any necessary modifications to reflect my findings and plan and (more content not included)... Normal [facility] VANCOMYCIN TROUGHon 08-27-19 22 VANC TR 8.6 ug/mL Low 10.0-20.0 [facility] Comment on above: Performed By: #### L IP, MG, HEPATIC, CH8 #### [facility] [address] [place], [address] BASIC METABOLIC PANELon 08-02 Anion gap [Moles/Vol] 20 mmol/L Normal 10-20 [facility] Comment on above: Performed By: #### L IP, MG, HEPATIC, CH8 #### [facility] [address] [place], [place], Calcium [Mass/Vol] 8.0 mg/dL Low 8.4-10.4 [facility] Comment on above: Performed By: #### L IP, MG, HEPATIC, CH8 #### [facility] [address] [place] [address], Chloride [Moles/Vol] 89 mmol/L Low 97-111 [facility] Comment on above: Performed By: #### L IP, MG, HEPATIC, CH8 #### [facility] [address] [place] [address], CO2 [Moles/Vol] 32 mmol/L High 21-30 [facility] Comment on above: Performed By: #### L IP, MG, HEPATIC, CH8 #### [facility] [address] [place] [address], Creatinine [Mass/Vol] 1.40 mg/dL High 0.80-1.30 [facility] Comment on above: Performed By: #### L IP, MG, HEPATIC, CH8 #### [facility] [address] [place] [address], ESTIMATED GFR (CKD-EPI) 46 mL/min/1.73sqm Low >=60 [facility] Comment on above: Performed By: #### L IP, MG, HEPATIC, CH8 #### [facility] [address] [place] [address], Glucose [Mass/Vol] 127 mg/dL High 80-116 [facility] Comment on above: Performed By: #### L IP, MG, HEPATIC, CH8 #### [facility] [address] [place] [address], Potassium [Moles/Vol] 3.8 mmol/L Normal 3.3-5.3 [facility] Comment on above: Performed By: #### L IP, MG, HEPATIC, CH8 #### [facility] [address] [place] [address], Sodium [Moles/Vol] 137 mmol/L Normal 135-148 [facility] Comment on above: Performed By: #### L IP, MG, HEPATIC, CH8 #### [facility] [address] [place], [place], Urea nitrogen [Mass/Vol] 26 mg/dL High 8-22 [facility] Comment on above: Performed By: #### L IP, MG, HEPATIC, CH8 #### [facility] [address] [place], [place], CBC WITH DIFFERENTIALon 08-02 Basophils (Bld) [#/Vol] 0.04 10*3/uL Normal 0.00-0.20 [facility] Comment on above: Performed By: #### C BCDSAT ####[facility] [id number] [place], [place], Basophils/100 WBC (Bld) 0.4 % Normal <=1.9 [facility] Comment on above: Performed By: #### C BCDSAT ####[facility] [id number] [place], [place], Eosinophils (Bld) [#/Vol] 0.17 10*3/uL Normal 0.00-0.70 [facility] Comment on above: Performed By: #### C BCDSAT ####[facility] [id number] [place], [place], Eosinophils/100 WBC (Bld) 1.5 % Normal 0.1-4.0 [facility] Comment on above: Performed By: #### C BCDSAT ####[facility] [id number] [place], [place], Erythrocyte distribution width (RBC) [Ratio] 13.7 % Normal 11.5-14.5 [facility] Comment on above: Performed By: #### C BCDSAT ####[facility] [id number] [place], [place], Hematocrit (Bld) [Volume fraction] 27.3 % Low 41.0-53.0 [facility] Comment on above: Performed By: #### C BCDSAT ####[facility] [id number] [place], [place], Hemoglobin (Bld) [Mass/Vol] 8.9 g/dL Low 13.9-16.3 [facility] Comment on above: Performed By: #### Jesse GODINEZAT ####[facility] [id number] [place] [address], Lymphocytes (Bld) [#/Vol] 0.91 10*3/uL Low 1.00-4.80 [facility] Comment on above: Performed By: #### Jesse GODINEZAT ####[facility] [id number] [place] [address], Lymphocytes/100 WBC (Bld) 8.0 % Low 24.0-44.0 [facility] Comment on above: Performed By: #### Jesse GODINEZAT ####[facility] [id number] [place] [address], MCH (RBC) [Entitic mass] 29.1 pg Normal 26.0-34.0 [facility] Comment on above: Performed By: #### Jesse GODINEZAT ####[facility] PATH[facility]Y [id number] [place] [address], MCHC (RBC) [Mass/Vol] 32.5 g/dL Normal 32.0-35.9 [facility] Comment on above: Performed By: #### Jesse GODINEZAT ####[facility] PATH[facility] [id number] [place] [address], MCV (RBC) [Entitic vol] 90 fL Normal 80-100 [facility] Comment on above: Performed By: #### Jesse GODINEZAT ####[facility] [id number] [place] [address], MONOCYTE DISTRIBUTION WIDTH Normal [facility] Comment on above: Performed By: #### Jesse GODINEZAT ####[facility] [id number] [place], [place], Monocytes (Bld) [#/Vol] 1.03 10*3/uL High 0.20-1.00 [facility] Comment on above: Performed By: #### Jesse GODINEZAT ####[facility] [id number] [place] [address], Monocytes/100 WBC (Bld) 9.0 % Normal 2.0-11.0 [facility] Comment on above: Performed By: #### Jesse GODINEZAT ####[facility] [id number] [place], [place], Neutrophils (Bld) [#/Vol] 9.32 10*3/uL High 1.50-8.00 [facility] Comment on above: Performed By: #### Jesse GODINEZAT ####[facility] [id number] [place], [place], Neutrophils/100 WBC (Bld) 81.2 % High 31.0-76.0 [facility] Comment on above: Performed By: #### Jesse GODINEZAT ####[facility] [id number] [place], [place], Platelet mean volume (Bld) [Entitic vol] 7.4 fL Low 7.5-11.2 [facility] Comment on above: Performed By: #### Jesse GODINEZAT ####[facility] PATH[facility] [id number] [place] [address], Platelets (Bld) [#/Vol] 225 10*3/uL Normal 150-400 [facility] Comment on above: Performed By: #### Jesse GODINEZAT ####[facility] [id number] [place], [place], RBC (Bld) [#/Vol] 3.05 10*6/uL Low 4.50-5.90 [facility] Comment on above: Performed By: #### Jesse GODINEZAT ####[facility] [id number] [place], [place], WBC (Bld) [#/Vol] 11.5 10*3/uL Normal 4.5-11.5 [facility] Comment on above: Performed By: #### Jesse GODINEZAT ####[facility] [id number] [place], [place], CLOSTRIDIUM DIFFICILEon - CLOSTRIDIUM DIFFICILE Negative Normal Negative [facility] Comment on above: Order Comment: Resul ts obtained by using a real-time PCR based qualitative in vitro diagnostic test for the direct detection of the C. difficile toxin A gene (tcdA) and toxin B gene (tcdB) targets in stool specimens.Results should be interpreted in conjunction with information from the patient clinical evaluation and other diagnostic testing Performed By: #### C BC #### [facility] [address] [place] [address], Care Plan Noteon 08-26-2021 Consultant Authentication Interface Message Text Problem: Infection: Goal: Will be free of signs and symptoms of infection Outcome: Progressing Note: PT hemodynamically stable. Afebrile. Cultures pending. Problem: Routine Care: Goal: Patient care will be managed and maintained throughout hospital stay per unit specific routine care procedure Outcome: Progressing Note: Care provided based on MICU protocols. Problem: Acute Pain: Goal: Ability to identify pain intensity on a pain scale and rate it consistently will be achieved and maintained Outcome: Progressing Note: Numeric pain scale used. No pain reported at this time. PRN medications available. Problem: VTE Prophylaxis: Goal: Will be free of DVT Outcome: Progressing Note: Subcutaneous heparin and SCD's in use. Will monitor for s/s of DVT/VTE. Problem: Safety: Goal: Patient will remain free of falls during hospital stay Outcome: Progressing Note: PT remains free from falls. Call light within reach. Pt is aware of own abilities. Problem: Discharge Planning: Goal: Discharge needs of the adult patient will be met Outcome: Progressing Note: PT was admitted yesterday. Will assess for discharge readiness at rounds today. Problem: Alteration in Respiratory Status: Goal: Achieve Optimal Respiratory Status with Minimal Ventilatory/Oxygen Support Outcome: Progressing Note: Continuous pulse ox. 3L NC. No complaints of SOB. Normal [facility] [employer] [facility] HEPATIC FUNCTION PANELon Albumin [Mass/Vol] 1.5 g/dL Low 3.4-5.1 [facility] Comment on above: Performed By: #### L IP, MG, HEPATIC, CH8 #### [facility] [address] [place] [address], ALK 173 IU/L Normal 40-200 [facility] [facility] Comment on above: Performed By: #### L IP, MG, HEPATIC, CH8 #### [facility] [address] [place] [address], ALT [Catalytic activity/Vol] 77 U/L High 7-40 [facility] Comment on above: Performed By: #### L IP, MG, HEPATIC, CH8 #### S [facility] [address] [place] [address], AST [Catalytic activity/Vol] 39 U/L Normal 7-40 [facility] Comment on above: Performed By: #### L IP, MG, HEPATIC, CH8 #### [facility] [address] [place] [address], Bilirubin [Mass/Vol] 0.6 mg/dL Normal 0.1-1.5 [facility] Comment on above: Performed By: #### L IP, MG, HEPATIC, CH8 #### [facility] [address] [place] [address], Bilirubin.direct [Mass/Vol] 0.20 mg/dL Normal 0.10-0.30 [facility] Comment on above: Performed By: #### L IP, MG, HEPATIC, CH8 #### [facility] [address] [place] [address], Protein [Mass/Vol] 4.6 g/dL Low 5.7-8.1 [facility] Comment on above: Performed By: #### L IP, MG, HEPATIC, CH8 #### [facility] [address] [place] [address], MAGNESIUMon 08-26-2021 Magnesium [Mass/Vol] 1.8 mg/dL Normal 1.6-2.8 [facility] Comment on above: Performed By: #### L IP, MG, HEPATIC, CH8 #### [facility] [address] [place] [address], PHOSPHORUSon 08-26-2021 Phosphate [Mass/Vol] 4.7 mg/dL High 2.3-4.2 [facility] Comment on above: Performed By: #### L IP, MG, HEPATIC, CH8 #### [facility] [address] [place] [address], Procedureson 08-26-2021 Consultant Authentication Interface Message Text Transthoracic Echocardiographic Report Name: GEORGETTE SALAZARJA SAWYER MD Physician: : [id number] Referring VERONICA ABEL MD Physician: Age: 86 [employer]: ILDA PATEL Exam Date: 08/26/2021 Fellow: 09:22 AM CVT: PCP: Gender: Male Height 180.34 cm Weight 92.988 kg Encounter #: BSA 2.13 m2 Study MICU BMI 28.59 kg/m2 Location: Technical Fair Quality: Type of Study: TTE procedure: 2D echocardiogram, M-Mode, Doppler , Color Doppler, Contrast study. Indications for Study:Syncope. Tech. Comments Patient identified by name and date of . Doctor's order(s) verified. Patient's preferred language is Sudanese . Verbal consent for left heart echo contrast was obtained after explanation of the risks (1/10,000 significant and 1/3,000 minor allergic reactions) and benefits (needed enhancement of imaging) were explained. Administration of 1 dose(s) of 1.5 ml of Definity diluted to 8.5 ml of saline was administered by ch Supine BP: 122/63 mmHg Patient Status: Routine Contrast Medium: Definity. Left Ventricle Value Normal Value Normal LVIDd: 4.5 cm <5.7 cm Post. Wall 0.9 cm <1.2 cm Thickness: Septum 1.1 cm <1.2 cm LV FS: 60 % 30-40% Diastolic: Systolic 1.8 cm <4 cm LV Mass 177.24g Dimension: LV Mass Index: 83 g/m2 <110 Women<120 Men Left Atrium LA Dimension: 2.9 cm <3.92cm Right Cavities Ventricle RV (apical 4): 4.7 cm <4.3 cm Vessels Sinus of 2.7cm Valsalva: Findings/Conclusions Chambers LV Left ventricular systolic function is normal. The left ventricular ejection fraction (LVEF) is 65% +/- 5%by the biplane summation of discs (Morelos's rule) method. Left ventricular size is normal. Left ventricular hypertrophy is absent. LA Normal left atrium. The left atrial volume index is 24 mL/m2 (normal: <35 mL/m2, mild: 35-41 mL/m2, moderate: 42-48 mL/m2, severe: >48 mL/m2). RV Normal right ventricular size and function. The tricuspid annular plane systolic excursion (TAPSE, a marker of RV systolic function) is normal at 31 mm (normal >16 mm). RA Normal right atrium. Valves AV Aortic fibrocalcific (non-stenotic) changes are present and are mild. MV Normal mitral valve. TV There is physiologic tricuspid regurgitation. PV Normal pulmonic valve. Great Vessels Normal sinus of Valsalva. The ascending aorta is dilated. This dilation is mild and measures 3.7 cm. Pericardium/Pleura No evidence of a pericardial effusion. Hemodynamics The left ventricular filling pattern is abnormal. This is of the abnormal relaxation type (as seen with hypertrophy, ischemia, hypovolemia and intraventricular conduction disturbances, a.k.a. Type I diastolic dysfunction). Estimated pulmonary artery systolic pressure is 35 mmHg +/- 5 mmHg. (Upper normal is <40 mmHg). Estimated RA pressure is <5 mmHg. Summary Normal LV systolic function. The left ventricular ejection fraction (LVEF) is 65%. Normal RV systolic function. No left ventricular hypertrophy is present. Mild tricuspid valve regurgitation. Fibrocalcific changes are seen in the aortic valve. Noninvasive hemodynamic assessment is consistent with normal pulmonary artery systolic pressure, a low CVP. See above for further details. Authenticated by: Electronically signed and authenticated by HERLINDA JACQUES MD(Interpreting physician) on 08/26/2021 11:16 AM Normal [facility] Progress Noteson 08-26-2021 Consultant Authentication Interface Message Text Pharmacokinetic Dosing Service - VANCOMYCIN Name: Fidel Palomino Age:[age] year old Gender: male Ht: 5' 11 Wt: 93.0 kg Indication: Gastrointestinal/Intr aabdominal Desired Ranges: 10-15 Day of therapy: 1; upon review of vancomycin there was no dose ordered for last evening. A dose has been ordered for today and given this morning at 0900. Assessment and Recommendations: 08/26/21 PLAPPONI- Day1: Gastrointestinal/Intr aabdominal; Renal function: DIONISIO serum creatinine trending down dose by levels for now; No change recommended. Next level Due:08/27. Level ordered Current Dose Active Vancomycin Orders (From admission, onward) Start Stop 08/26/21 0730 vancomycin (VANCOCIN) 1500 mg in isotonic hannah'n 300 mL 1,500 mg, Intravenous, ONCE Question: Suspected Source/Reason for Therapy Answer: Gastrointestinal/Intr aabdominal 08/26/21 19208/25/21 1441 vancomycin dosing pharmacy consult Other, As Directed Question: Suspected Source/Reason for Therapy Answer: Gastrointestinal/Intr aabdominal -- Lab Values: Creatinine Date Value Ref Range Status 08/26/2021 1.40 (H) 0.80 - 1.30 mg/dL Final 08/25/2021 1.63 (H) 0.80 - 1.30 mg/dL Final 08/25/2021 1.96 (H) 0.80 - 1.30 mg/dL Final No results found for: VANCTRNo results found for: VANCR Serum creatinine: 1.4 mg/dL (H) 08/26/21 0431 Estimated creatinine clearance: 45.78 mL/min (A) Culture(s): PENDING. DUSTY SÁNCHEZ [facility] - Department of Pharmacy Services Normal [facility] Consultant Authentication Interface Message Text [facility], Critical Care, AND Sleep Medicine MICU ATTENDING NOTE Code Status: DNR-CCA and DNI DPOAHC/NOK: LOS: 1 day I saw and evaluated Mr. Fidel Palomino. I personally obtained chritsie and critical portions of the history and physical examination. I reviewed the resident's documentation and discussed the patient with the residents and the MICU team. I agree with the resident's medical decision making as documented in their note. The patient has a high probability of sudden, clinically significant deterioration, which requires the highest level of physician preparedness to intervene urgently. I managed/supervised life or organ supporting interventions that required frequent physician assessment. Time I spent with family or surrogate(s) is included only if the patient was incapable of providing the necessary information or participating in medical decision making. Time devoted to teaching and to any procedures I billed separately is not included. I spent 32 critical care minutes of my full attention on this patient's management and direct patient care. Of note, medical issues requiring critical care management include: RESPIRATORY FAILURE, RENAL FAILURE and OVERWHELMING INFECTION. Subjective: 86 yo man with 20PY smoking (discontinued > 10 years ago), dyslipidemia, HTN, BPH, pEF CHF, chronic hypoxemic respiratory failure (2L), remote left inguinal hernia (s/p mesh), s/p appendectomy 12/28/21 at [facility] complicated by ileus presented to OSH with lightheadedness and dizziness. Admitted to MICU for hypoxemia. ED: 120/64, 36.7, 81, 94% on 5L Objective: Allergy: Patient has no known allergies. Patient Vitals for the past 24 hrs: BP Temp Temp src Pulse Resp SpO2 O2 Device O2 Flow Rate (l/min) 08/26/21 0742 -- 97.7 ???F (36.5 ???C) Oral -- -- -- -- -- 08/26/21 0700 105/66 -- -- 65 20 96 % -- -- 08/26/21 0600 116/65 -- -- 65 23 97 % -- -- 08/26/21 0500 102/65 -- -- 64 19 97 % -- -- 08/26/21 0400 102/71 97.9 ???F (36.6 ???C) Oral 63 20 98 % Nasal cannula 3 08/26/21 0300 113/67 -- -- 69 21 97 % -- -- 08/26/21 0200 100/56 -- -- 73 24 93 % -- -- 08/26/21 0100 106/66 -- -- 72 22 97 % -- -- 08/26/21 0000 124/70 -- -- 82 20 96 % Nasal cannula 3 08/25/21 2356 112/65 -- -- 86 20 95 % -- -- 08/25/213 114/78 -- -- 81 25 96 % -- -- 08/25/210 107/62 -- -- 71 23 97 % -- -- 08/25/21 2330 -- 97.5 ???F (36.4 ???C) Oral -- -- -- -- -- 08/25/21 2300 102/57 -- -- 76 27 95 % -- -- 08/25/212199 100/63 -- -- 76 27 96 % -- -- 08/25/21 2100 98/60 -- -- 75 30 97 % -- -- 08/25/21 2000 115/70 97.7 ???F (36.5 ???C) Oral 83 27 97 % Nasal cannula 3 08/25/21 1900 130/70 -- -- 80 19 96 % -- 3 08/25/21 1845 121/66 -- -- 76 25 98 % -- -- 08/25/21 1810 98/64 98 ???F (36.7 ???C) Oral 86 24 98 % Nasal cannula 5 08/25/21 1550 134/66 -- -- 77 (!) 24 100 % Nasal cannula 5 08/25/21 1545 143/68 -- -- 75 (!) 22 99 % Nasal cannula 08/25/21 1540 134/69 -- -- 74 (!) 23 99 % Nasal cannula 08/25/21 1535 139/70 -- -- 76 (!) 23 99 % Nasal cannula 08/25/21 1519 149/75 -- -- 78 (!) 28 100 % Nasal cannula 08/25/21 1517 153/75 -- -- 80 (!) 29 99 % Nasal cannula 08/25/21 1202 -- -- -- 79 (!) 29 97 % -- -- 08/25/21 1200 122/63 -- -- -- -- -- -- -- 08/25/21 1101 120/64 -- -- 80 (!) 22 95 % Nasal cannula 08/25/21 0940 -- -- -- 78 (!) 27 93 % -- -- 08/25/21 0938 -- -- -- 81 (!) 29 94 % -- -- Intake/Output Summary (Last 24 hours) at 08/26/2021 0847 Last data filed at 08/26/2021 0603 Gross per 24 hour Intake 735 ml Output 1390 ml Net -655 ml CTA Chest from yesterday was reviewed: IMPRESSION: 1. No acute pulmonary embolism identified. PE cannot be evaluated beyond the segmental level due to the limitations above. 2. Moderate right and small left pleural effusions with adjacent atelectasis. Superimposed infection is not favored but would be difficult to exclude. 3. Small volume upper abdominal ascites, with partially visualized postoperative fluid collection. 4. Three-vessel coronary artery disease. 5. Gallbladder wall thickening/edema is likely reactive. The gallbladder is nondistended. Basic Metabolic Panel Na K Cl CO2 Gap Glu BUN Cr Ca Mg PO4 08/26/21 0431 1.8 08/26/21 0431 4.7 08/26/21 0431 137 3.8 89 32 20 127 26 1.40 8.0 08/25/21 1340 135 3.7 90 32 17 136 26 1.63 7.7 08/25/21 0510 1.8 08/25/21 0510 132 3.7 88 33 15 134 28 1.96 7.9 Creatinine clearance from [facility]: 42 ml/min using IBW 75.3 kg (actual weight 93.0 kg ignored) GFR from MDRD: 48.3 ml/min/1.73 sq m age 86 yr, cr=1.40 on 08/26/2021, race White CBC/PT/INR WBC RBC Hgb Hct MCV RDW Plt PT aPTT INR 08/26/21 0431 11.5 3.05 8.9 27.3 90 13.7 225 08/25/21 1340 16.5 3.22 9.5 28.8 90 13.5 236 08/25/21 0510 1.36 08/25/21 0510 18.2 3.67 10.6 33.0 90 13.8 267 WBC/Diff Neut (more content not included)... Normal [employer] Consultant Authentication Interface Message Text [facility] DIVISION OF ACUTE CARE SURGERY --------- GENERAL INFORMATION -------- EMERGENCY GENERAL SURGERY NOTE Patient Name: Fidel Palomino Admission Date: 08/25/2021 Patient seen and examined on 08/26/2021 ------- INTERVAL HISTORY/EVENTS ----- Background Narrative: Fidel Palomino is a 86 year old male with a h/o HTN, HLD, BPH, remote left inguinal hernia repair with mesh, s/p appendectomy 07/28/21 (done at [facility]) c/b ileus who presented to [facility] ED for lightheadedness and dizziness. He was shaving and felt lightheaded, denies LOC or falling. He was hospitalized after his appendectomy 07/28-08/17. He felt well for 2-3 days after discharge but began feeling lightheaded for which he went to an ED and discharged after recommendation to stay hydrated. He subsequently was found to have a UTI. CT A/P done without contrast at OSH showing an abdominal fluid collection in the right paracolic gutter. He is a former smoker, quit 30 years ago. Smoked 1 pack/day for 20 years. ??? Hospital Course/Procedures: 08/25/2021: Admitted to [facility], IR drain placed. Events in last 24 hours: Admitted to [facility] and IR drain placed yesterday 08/25/2021. Patient denies abdominal pain, nausea, vomiting this morning. He is passing flatus, no BM's. Drain with serosanguinous output (see picture in media tab). Oxygen requirements have decreased from 4L to 3L via NC overnight. PHYSICAL EXAM Vitals: Vital sign ranges over the past 24 hours (retrieved 08/26/2021 at 8:01 AM): Tmax (24 hours): 98 ???F (36.7 ???C) Pulse Av.8 Min: 63 Max: 86 Systolic (24hrs), Av , Min:98 , Max:153 Diastolic (24hrs), Av, Min:56, Max:78 MAP (mmHg) Av.1 mmHg Min: 68 mmHg Max: 90 mmHg Resp Av.1 Min: 19 Max: 30 SpO2 Av.8 % Min: 93 % Max: 100 % 24 Hour Input/Output In: 735 (7.9 mL/kg) [I.V.:725 (0.3 mL/kg/hr)] Out: 1390 (14.9 mL/kg) [Urine:1240 (0.6 mL/kg/hr); Drainage:150] Net: -655 Weight: 93 kg Physical Exam: Physical Exam Constitutional: General: He is not in acute distress. Appearance: He is not toxic-appearing. HENT: Head: Normocephalic and atraumatic. Mouth/Throat: Mouth: Mucous membranes are moist. Pharynx: Oropharynx is clear. Eyes: Extraocular Movements: Extraocular movements intact. Pupils: Pupils are equal, round, and reactive to light. Cardiovascular: Rate and Rhythm: Normal rate and regular rhythm. Pulses: Normal pulses. Pulmonary: Effort: Pulmonary effort is normal. No respiratory distress. Abdominal: Palpations: Abdomen is soft. There is no mass. Tenderness: There is no abdominal tenderness. There is no guarding or rebound. Comments: IR drain in place with minimal SS output, abdomen is soft, mildly distended, nontender, tympanic on percussion Musculoskeletal: General: No deformity or signs of injury. Cervical back: Normal range of motion. Skin: General: Skin is warm and dry. Coloration: Skin is not jaundiced. Neurological: General: No focal deficit present. Mental Status: He is alert and oriented to person, place, and time. LABORATORY RESULTS (LAST 24 HOURS) CBC/PT/INR WBC RBC Hgb Hct MCV RDW Plt PT aPTT INR 08/26/21430 11.5 3.05 8.9 27.3 90 13.7 225 08/25/21 1340 16.5 3.22 9.5 28.8 90 13.5 236 Basic Metabolic Panel Na K Cl CO2 Gap Glu BUN Cr Ca Mg PO4 08/26/211 1.8 08/26/21 0431 4.7 08/26/21 043 137 3.8 89 32 20 127 26 1.40 8.0 08/25/21 1340 135 3.7 90 32 17 136 26 1.63 7.7 Arterial Blood Gases None IMAGING RESULTS - Last 24 hours (PERSONALLY REVIEWED) ??? CT CHEST, ABDOMEN AND PELVIS W/O CONTRAST ([facility]: [facility]) - 08/24/2021 1. Moderate right-sided pleural effusion. Trace left-sided pleural effusion. Findings are new compared to the prior study from 2019. 2. Consolidative changes involving the lower lobes, lesser degree right upper lobe. Pneumonia is suspected. 3. Presumed loculated fluid collection is seen within the right paracolic gutter measuring approximately 5.6 x 4.1 x 12.7 cm. No air bubbles are seen within the collection to suggest absc ess. Finding is likely postoperative given the history of recent appendectomy. 4. CT evidence of fecal impaction. ??? XR CHEST 1V PORTABLE ([facility]: [facility]) - 08/24/2021 LOW LUNG VOLUMES WITH BIBASILAR ATELECTASIS. NO FOCAL CONSOLIDATION IS SEEN TO SUGGEST PNEUMONIA. ??? CTA CHEST PE - 08/25/2021 1. No acute pulmonary embolism identified. PE cannot be evaluated beyond the segmental level due to the limitations above. 2. Moderate right and small left pleural effusions with adjacent atelectasis. Superimposed infection is not favored but would be difficult to exclude. 3. (more content not included)... Normal [employer] Authentication Interface Message Text Pharmacy Renal Dosing Service Name: Fidel Palomino Age: [age] year old Gender: male Ht: 5' 11 Wt: 93.0 kg Patient is currently prescribed the following renally monitored Medication(s): Renally Adjusted Meds (720h ago, onward) Ordered Stop 08/25/21 1824 famotidine (PEPCID) tablet 30 mg, Oral, DAILY -- Relevant objective data reviewed: Serum creatinine: 1.4 mg/dL (H) 08/26/21 0431 Estimated creatinine clearance: 45.78 mL/min (A) Assessment and Recommendation: Medication change is required; The recommended therapy is cefepime 2gm [id number] . Medication therapy has been updated per consult agreement. DUSTY SÁNCHEZ, [facility] Department of Pharmacy Services Normal [employer] US LIVER/GALL BLADDER/PANCRE ASon 08-26-2021 US LIVER/GALL BLADDER/PANCREAS EXAMINATION: US LIVER/GALL BLADDER/PANCREAS CLINICAL HISTORY: Reason for Exam: assess for ascites ASSOCIATED DIAGNOSIS: TECHNOLOGISTS NOTE: Liver 13.7cm. coarsened echotexture, no focal lesions identified. Panc vis portions appear wnl. Gb no definite stones or sludge seen. Wall msmt 4.4mm. CBD 4.4mm. Small amount of ascites seen adj to liver. COMPARISON: Outside CT of the chest, abdomen, and pelvis without intravenous contrast dated 08/24/2021 TECHNIQUE: Ultrasound real time scan with image documentation of the right upper quadrant including the liver, gallbladder, and pancreas was performed. FINDINGS: Liver Craniocaudal length: 13.7 cm. Echogenicity: The liver has coarsened echotexture. Surface nodularity: Not visualized Mass (size and location): None. Bile ducts Intrahepatic ducts: No biliary dilatation. Common bile duct: Normal caliber. Diameter 4 mm. Gallbladder Size and morphology: Normal caliber. Increased gallbladder wall thickness measuring up to 4.4 mm. Cholelithiasis: None Pericholecystic fluid: None. Sonographic Ibarra sign: Absent. Pancreas The pancreatic head and body are unremarkable. Visualization of the tail is limited. Other findings Trace amount of perihepatic fluid. IMPRESSION: 1. Cirrhotic liver with a trace amount of perihepatic ascites. No focal suspicious hepatic lesion identified. 2. Diffuse gallbladder wall thickening is nonspecific and may occur secondary to cirrhosis and ascites. No cholelithiasis is demonstrated. MACRO: None Normal [facility] ABO RH TYPEon 08-25-2021 ABO and Rh group Nom (Bld) Blood group O Rh(D) positive Normal [facility] Comment on above: Performed By: #### L IP, MG, HEPATIC, CH8 #### S [facility] LABORATORY [address] [place], [address] AEROBIC WOUND CULTUREon 08-02 AEROBIC WOUND CULTURE C PYOG: Positive Culture Report ESCHERICHIA COLI 2+ Escherichia coli Rare growth of normal skin brett GRAM STAIN: 4+ Polymorphonuclear Leukocytes No Squamous Epithelial Cells seen Mixed polymicrobial brett seen Normal [facility] Comment on above: Order Comment: THIS IS A PRELIMINARY REPORT. Final results will follow. Results of the preliminary report may be modified as additional information becomes available. Performed By: #### C PYOG ####[facility] [id number] [place], [place] MELISSA _ ORGANISM: ESCHERICHIA COLI ANTIBIOTIC MELISSA SENSITIVITY Amoxicillin + Clavulanate <= 2 S Ampicillin 4 S Ampicillin + Sulbactam <= 2 S Cefazolin <= 4 S Cefepime <= 1 S Ceftazidime <= 1 S Ceftriaxone <= 1 S Ciprofloxacin <= 0.25 S Ertapenem <= 0.5 S Gentamicin <= 1 S Piperacillin + Tazobactam <= 4 S Trimethoprim + Sulfamethoxazole <= 20 S Normal [facility] Comment on above: Order Comment: THIS IS A PRELIMINARY REPORT. Final results will follow. Results of the preliminary report may be modified as additional information becomes available. Performed By: #### C PYOG ####[facility] [id number] [place], [place] B TYPE NATRIURETIC PEPTIDEon 08-25-2021 Natriuretic peptide B (Bld) [Mass/Vol] 321.0 pg/mL High <100.0 [facility] Comment on above: Performed By: #### L IP, MG, HEPATIC, CH8 #### [facility] [address] [place] [address], BASIC METABOLIC PANELon 08-02 Anion gap [Moles/Vol] 17 mmol/L Normal 10-20 [facility] Comment on above: Performed By: #### L IP, MG, HEPATIC, CH8 #### [facility] [address] [place] [address], Calcium [Mass/Vol] 7.7 mg/dL Low 8.4-10.4 [facility] Comment on above: Performed By: #### L IP, MG, HEPATIC, CH8 #### [facility] [address] [place] [address], Chloride [Moles/Vol] 90 mmol/L Low 97-111 [facility] Comment on above: Performed By: #### L IP, MG, HEPATIC, CH8 #### [facility] [address] [place] [address], CO2 [Moles/Vol] 32 mmol/L High 21-30 [facility] Comment on above: Performed By: #### L IP, MG, HEPATIC, CH8 #### [facility] [address] [place] [address], Creatinine [Mass/Vol] 1.63 mg/dL High 0.80-1.30 [facility] Comment on above: Performed By: #### L IP, MG, HEPATIC, CH8 #### [facility] [address] [place] [address], ESTIMATED GFR (CKD-EPI) 38 mL/min/1.73sqm Low >=60 [facility] Comment on above: Performed By: #### L IP, MG, HEPATIC, CH8 #### [facility] [address] [place] [address], Glucose [Mass/Vol] 136 mg/dL High 80-116 [facility] Comment on above: Performed By: #### L IP, MG, HEPATIC, CH8 #### [facility] [address] [place] [address], Potassium [Moles/Vol] 3.7 mmol/L Normal 3.3-5.3 [facility] Comment on above: Performed By: #### L IP, MG, HEPATIC, CH8 #### [facility] [address] [place] [address], Sodium [Moles/Vol] 135 mmol/L Normal 135-148 [facility] Comment on above: Performed By: #### L IP, MG, HEPATIC, CH8 #### [facility] [address] [place] [address], Urea nitrogen [Mass/Vol] 26 mg/dL High 8-22 [facility] Comment on above: Performed By: #### L IP, MG, HEPATIC, CH8 #### [facility] [address] [place] [address], Anion gap [Moles/Vol] 15 mmol/L Normal 10-20 [facility] Comment on above: Performed By: #### L IP, MG, HEPATIC, CH8 #### [facility] [address] [place] [address], Calcium [Mass/Vol] 7.9 mg/dL Low 8.4-10.4 [facility] Comment on above: Performed By: #### L IP, MG, HEPATIC, CH8 #### [facility] [address], [place], Chloride [Moles/Vol] 88 mmol/L Low 97-111 [facility] Comment on above: Performed By: #### L IP, MG, HEPATIC, CH8 #### [facility] [address] [place] [address], CO2 [Moles/Vol] 33 mmol/L High 21-30 [facility] Comment on above: Performed By: #### L IP, MG, HEPATIC, CH8 #### [facility] [address] [place] [address], Creatinine [Mass/Vol] 1.96 mg/dL High 0.80-1.30 [facility] Comment on above: Performed By: #### L IP, MG, HEPATIC, CH8 #### [facility] [address] [place] [address], ESTIMATED GFR (CKD-EPI) 30 mL/min/1.73sqm Low >=60 [facility] Comment on above: Performed By: #### L IP, MG, HEPATIC, CH8 #### [facility] [address], [place], Glucose [Mass/Vol] 134 mg/dL High 80-116 [facility] Comment on above: Performed By: #### L IP, MG, HEPATIC, CH8 #### [facility] [address], [place], Potassium [Moles/Vol] 3.7 mmol/L Normal 3.3-5.3 [facility] Comment on above: Performed By: #### L IP, MG, HEPATIC, CH8 #### [facility] [address], [place], Sodium [Moles/Vol] 132 mmol/L Low 135-148 [facility] Comment on above: Performed By: #### L IP, MG, HEPATIC, CH8 #### [facility] [address], [place], Urea nitrogen [Mass/Vol] 28 mg/dL High 8-22 [facility] Comment on above: Performed By: #### L IP, MG, HEPATIC, CH8 #### [facility] [address], [place], BLOOD CULTUREon 08-25-2021 Bacteria identified Cx Nom (Bld) C BLOOD: No Growth Normal [facility] Comment on above: Performed By: #### C BC #### [facility] [address], [place], BLOOD GAS, VENOUSon 08-25-19 22 CR ABEV 7.8 mmol/L High -4.0-4.0 [facility] Comment on above: Performed By: #### C R BGV ####S PATHOLOGY [id number] [place], [place], CR HCO3V 33 mmol/L High 22-28 [facility] Comment on above: Performed By: #### C R BGV ####S PATHOLOGY [id number] [place], [place], CR PHV 7.416 High 7.310-7.410 [facility] Comment on above: Performed By: #### C R BGV ####S PATHOLOGY [id number] [place], [place], CR PVCO2 52.5 mm Hg High 41.0-51.0 [facility] Comment on above: Performed By: #### C R BGV ####[facility] [id number] [place], [place], CR PVO2 43 mm Hg High 35-40 [facility] Comment on above: Performed By: #### C R BGV ####S PATHOLOGY [id number] [place], [place], Oxygen saturation in Blood 75.6 % High 70.0-75.0 [facility] Comment on above: Performed By: #### C R BGV ####S PATHOLOGY [id number] [place], [place], CBC WITH DIFFERENTIALon 08-02 Basophils (Bld) [#/Vol] 0.03 10*3/uL Normal 0.00-0.20 [facility] Comment on above: Performed By: #### C BC #### [facility] [address], [place], Basophils/100 WBC (Bld) 0.2 % Normal <=1.9 [facility] Comment on above: Performed By: #### C BC #### [facility] [address], [place], Eosinophils (Bld) [#/Vol] 0.08 10*3/uL Normal 0.00-0.70 [facility] Comment on above: Performed By: #### C BC #### [facility] [address], [place], Eosinophils/100 WBC (Bld) 0.4 % Normal 0.1-4.0 [facility] Comment on above: Performed By: #### C BC #### [facility] [address], [place], Erythrocyte distribution width (RBC) [Ratio] 13.8 % Normal 11.5-14.5 [facility] Comment on above: Performed By: #### C BC #### [facility] [address], [place], Hematocrit (Bld) [Volume fraction] 33.0 % Low 41.0-53.0 [facility] Comment on above: Performed By: #### C BC #### [facility] [address], [place], Hemoglobin (Bld) [Mass/Vol] 10.6 g/dL Low 13.9-16.3 [facility] Comment on above: Performed By: #### C BC #### [facility] [address] [place] [address], Lymphocytes (Bld) [#/Vol] 0.66 10*3/uL Low 1.00-4.80 [facility] Comment on above: Performed By: #### C BC #### [facility] [address] [place] [address], Lymphocytes/100 WBC (Bld) 3.6 % Low 24.0-44.0 [facility] Comment on above: Performed By: #### C BC #### [facility] [address] [place] [address], MCH (RBC) [Entitic mass] 28.9 pg Normal 26.0-34.0 [facility] Comment on above: Performed By: #### C BC #### [facility] [address] [place] [address], MCHC (RBC) [Mass/Vol] 32.2 g/dL Normal 32.0-35.9 [facility] Comment on above: Performed By: #### C BC #### [facility] [address] [place] [address], MCV (RBC) [Entitic vol] 90 fL Normal 80-100 [facility] Comment on above: Performed By: #### C BC #### [facility] [address] [place] [address], MONOCYTE DISTRIBUTION WIDTH 21 High <=20 [facility] Comment on above: Performed By: #### C BC #### [facility] [address] [place] [address], Monocytes (Bld) [#/Vol] 1.52 10*3/uL High 0.20-1.00 [facility] Comment on above: Performed By: #### C BC #### [facility] [address] [place] [address], Monocytes/100 WBC (Bld) 8.3 % Normal 2.0-11.0 [facility] Comment on above: Performed By: #### C BC #### [facility] [address] [place], [place], Neutrophils (Bld) [#/Vol] 15.95 10*3/uL High 1.50-8.00 [facility] Comment on above: Performed By: #### C BC #### [facility] [address], [place], Neutrophils/100 WBC (Bld) 87.5 % High 31.0-76.0 [facility] Comment on above: Performed By: #### C BC #### [facility] [address], [place], Platelet mean volume (Bld) [Entitic vol] 7.7 fL Normal 7.5-11.2 [facility] Comment on above: Performed By: #### C BC #### [facility] [address], [place], Platelets (Bld) [#/Vol] 267 10*3/uL Normal 150-400 [facility] Comment on above: Performed By: #### C BC #### [facility] [address], [place], RBC (Bld) [#/Vol] 3.67 10*6/uL Low 4.50-5.90 [facility] Comment on above: Performed By: #### C BC #### [facility] [address], [place], WBC (Bld) [#/Vol] 18.2 10*3/uL High 4.5-11.5 [facility] Comment on above: Performed By: #### C BC #### [facility] [address], [place], COMPLETE BLOOD COUNTon 08-25 Erythrocyte distribution width (RBC) [Ratio] 13.5 % Normal 11.5-14.5 [facility] Comment on above: Performed By: #### C BC #### [facility] [address], [place], Hematocrit (Bld) [Volume fraction] 28.8 % Low 41.0-53.0 [facility] Comment on above: Performed By: #### C BC #### [facility] [address], [place], Hemoglobin (Bld) [Mass/Vol] 9.5 g/dL Low 13.9-16.3 [facility] Comment on above: Performed By: #### C BC #### [facility] [address], [place], MCH (RBC) [Entitic mass] 29.5 pg Normal 26.0-34.0 [facility] Comment on above: Performed By: #### C BC #### [facility] [address], [place], MCHC (RBC) [Mass/Vol] 32.9 g/dL Normal 32.0-35.9 [facility] Comment on above: Performed By: #### C BC #### [facility] [address], [place], MCV (RBC) [Entitic vol] 90 fL Normal 80-100 [facility] Comment on above: Performed By: #### C BC #### [facility] [address], [place], Platelet mean volume (Bld) [Entitic vol] 7.6 fL Normal 7.5-11.2 [facility] Comment on above: Performed By: #### C BC #### [facility] [address], [place], Platelets (Bld) [#/Vol] 236 10*3/uL Normal 150-400 [facility] Comment on above: Performed By: #### C BC #### [facility] [address], [place], RBC (Bld) [#/Vol] 3.22 10*6/uL Low 4.50-5.90 [facility] Comment on above: Performed By: #### C BC #### [facility] [address], [place], WBC (Bld) [#/Vol] 16.5 10*3/uL High 4.5-11.5 [facility] Comment on above: Performed By: #### C #### [facility] [address] [place], [address] CTA CHEST PULMONARY EMBOLISM W/ CTAon 08-25-2021 CTA CHEST PULMONARY EMBOLISM W/ CTA EXAMINATION: CTA CHEST PULMONARY EMBOLISM W/ CTA CLINICAL HISTORY: Reason for Exam: Pulmonary embolism suspected; Tachycardia (HR more than 100 bpm); Pulmonary embolism is leading diagnosis ASSOCIATED DIAGNOSIS: Pulmonary embolism suspected Tachycardia (HR more than 100 bpm) Pulmonary embolism is leading diagnosis TECHNOLOGISTS NOTE: COMPARISON: Outside hospital CT chest 08/24/[address] abdomen and pelvis 08/24/2021 TECHNIQUE: Axial images of the chest were obtained from above the lung apices through the level of the adrenal glands during the bolus administration of intravenous contrast. Multiplanar and 3D maximum intensity projection reformulation's were created from the raw CT data which were interpreted in conjunction with the axial images to render the findings listed below. Before infusion of intravenous contrast, radiology personnel investigated the possibility of an allergic history and of any history of reaction to iodinated contrast material. Contrast Protocol: Omnipaque 350 [>or =100lb] 75 ml [<100 lb] 1 ml per 1 lb. INTRA-PROCEDURE MEDS: iohexol (OMNIPAQUE) 350 MG/ML injection 100 mL INTRAVENOUS FINDINGS: Exam Quality: Overall exam quality is satisfactory. Pulmonary arterial enhancement is optimal, the breath hold is adequate, and there are significant artifacts impacting image quality (respiratory motion and lower lobe atelectasis is present. Pulmonary Arteries: There are no filling defects within the pulmonary arterial system to suggest pulmonary embolus, to the segmental level. Cardiovasculature: The heart is normal in size on this nondedicated study. Three-vessel coronary artery disease is present. No intracardiac thrombus is seen. The thoracic aorta is normal in caliber with scattered calcification. Mediastinum/Pericardi um: The esophagus is patulous. Pleura: Moderate right pleural effusion, persistent small left pleural effusion. Central Airways: Widely patent Lungs: Dependent enhancing pulmonary consolidation is seen adjacent to the pleural fluid. Nodules: Evaluation is limited secondary to underlying process and. 3 mm right apical nodule on image 6-62 and 2 mm nodule on image 6-113 in the right upper lobe Lymph Nodes: No thoracic lymphadenopathy is evident. Visualized musculoskeletal structures: Diffuse idiopathic skeletal hyperostosis is present within the spine. Included images of the upper abdomen: There is a small amount of perisplenic simple fluid and trace amount of perihepatic simple fluid. Multiple splenic calcifications, favor sequelae of granulomatous disease. Partial visualization of known right paracolic gutter fluid collection, similar in appearance. Gallbladder wall thickening/edema is similar to comparison study. IMPRESSION: 1. No acute pulmonary embolism identified. PE cannot be evaluated beyond the segmental level due to the limitations above. 2. Moderate right and small left pleural effusions with adjacent atelectasis. Superimposed infection is not favored but would be difficult to exclude. 3. Small volume upper abdominal ascites, with partially visualized postoperative fluid collection. 4. Three-vessel coronary artery disease. 5. Gallbladder wall thickening/edema is likely reactive. The gallbladder is nondistended. MACRO: None Normal [employer] Care Plan Noteon 08-25-2021 Consultant Authentication Interface Message Text Problem: Infection: Goal: Will be free of signs and symptoms of infection Outcome: Progressing Note: New admit to MICU for closer monitoring. Labs and ATBs as ordered. Problem: Routine Care: Goal: Patient care will be managed and maintained throughout hospital stay per unit specific routine care procedure Outcome: Progressing Note: New admit to MICU. MICU standards of care in place. Problem: Acute Pain: Goal: Ability to identify pain intensity on a pain scale and rate it consistently will be achieved and maintained Outcome: Progressing Note: No complaints of pain upon arrival to MICU. Will treat as needed. Problem: VTE Prophylaxis: Goal: Will be free of DVT Outcome: Progressing Note: SCDs initiated. Problem: Safety: Goal: Patient will remain free of falls during hospital stay Outcome: Progressing Note: Hourly rounding and patient identifiers. Problem: Discharge Planning: Goal: Discharge needs of the adult patient will be met Outcome: Progressing Note: New admit to MICU. Problem: Alteration in Respiratory Status: Goal: Achieve Optimal Respiratory Status with Minimal Ventilatory/Oxygen Support Outcome: Progressing Note: New admit to MICU. Pt is on 5L NC. Will wean as tolerated. Normal [employer] Consultson 08-25-2021 Consultant Authentication Interface Message Text DEPARTMENT OF SURGERY CONSULT - ACUTE CARE SURGERY Fidel Palomino [id number] Chief Complaint/Reason for Consultation Intraabdominal fluid collection History (HPI) Fidel Palomino is a 86 year old male with a h/o HTN, HLD, BPH, remote left inguinal hernia repair with mesh, s/p appendectomy 07/28/21 (done at [facility]) c/b ileus who presented to OSH ED for lightheadedness and dizziness. He was shaving and felt lightheaded, denies LOC or falling. He was hospitalized after his appendectomy 07/28-08/17. He felt well for 2-3 days after discharge but began feeling lightheaded for which he went to an ED and discharged after recommendation to stay hydrated. He subsequently was found to have a UTI. He denies fevers or chills. Has been having a lack of appetite, poor PO intake, nausea, and dry heaving. No vomiting. He is tolerating <1L of water daily. He passed a BM today and passing gas. Endorses he fluctuates between constipation and diarrhea. He denies abdominal pain. CT A/P done without contrast at OSH showing an abdominal fluid collection in the right paracolic gutter. He is unaware of his medications as his manages these. He is a former smoker, quit 30 years ago. Smoked 1 pack/day for 20 years. Social drinking. Denies drug use. No past medical history on file. No past surgical history on file. Medications: None Allergies: Patient has no allergy information on record. Family History: family history is not on file. Social History: Review of Systems: negative except per HPI PHYSICAL EXAMINATION BP 137/69 Pulse 85 Temp 97.5 ???F (36.4 ???C) (Oral) Resp (!) 25 SpO2 91% There is no height or weight on file to calculate BMI. PHYSICAL EXAMINATION: Vital signs reviewed General appearance: no distress, cooperative, oriented to time, place and person, obese, pale Skin: positives: pale Head: Normocephalic. No masses, lesions, tenderness or abnormalities Nose/Sinuses: Nares normal. Septum midline. Mucosa normal. Oropharynx: negative Neck: Normal size Lungs: Non labored breathing on nasal cannula Heart: Warm and well perfused. Abdomen: Abdomen soft, mildly-tender. No masses, No organomegaly Neuro: Nonfocal Laboratory Values and Test Results Results for orders placed or performed during the hospital encounter of 08/25/21 BASIC METABOLIC PANEL Result Value Ref Range Glucose 134 (H) 80 - 116 mg/dL Sodium 132 (L) 135 - 148 mmol/L Potassium 3.7 3.3 - 5.3 mmol/L Carbon Dioxide 33 (H) 21 - 30 mmol/L Chloride 88 (L) 97 - 111 mmol/L Blood Urea Nitrogen 28 (H) 8 - 22 mg/dL Creatinine 1.96 (H) 0.80 - 1.30 mg/dL Calcium 7.9 (L) 8.4 - 10.4 mg/dL Anion Gap 15 10 - 20 Estimated GFR (CKD-EPI) 30 (L) >=60 mL/min/1.73sqm MAGNESIUM Result Value Ref Range Magnesium 1.8 1.6 - 2.8 mg/dL HEPATIC FUNCTION PANEL Result Value Ref Range Albumin 1.7 (L) 3.4 - 5.1 g/dL Bilirubin, Direct 0.40 (H) 0.10 - 0.30 mg/dL Bilirubin, Total 0.7 0.1 - 1.5 mg/dL Alkaline Phosphatase 229 (H) 40 - 200 IU/L ALT (SGPT) 125 (H) 7 - 40 IU/L AST (SGOT) 83 (H) 7 - 40 IU/L Protein, Total 5.6 (L) 5.7 - 8.1 g/dL LIPASE Result Value Ref Range Lipase 38 <128 IU/L PROTHROMBIN TIME AND INR Result Value Ref Range Protime 15.0 (H) 9.7 - 12.9 sec INR 1.36 (H) 0.90 - 1.10 TYPE AND SCREEN Result Value Ref Range ABO Rh Type O Positive Ab Screen Interp Negative ABO Rh/[place]/TXRX History No Previous Results LACTIC ACID Result Value Ref Range Lactate 2.2 (H) 0.5 - 2.0 mmol/L B TYPE NATRIURETIC PEPTIDE Result Value Ref Range B Type Natriuretic Peptide 321.0 (H) <100.0 pg/mL CBC WITH DIFFERENTIAL Result Value Ref Range WBC 18.2 (H) 4.5 - 11.5 K/uL RBC 3.67 (L) 4.50 - 5.90 M/uL Hemoglobin 10.6 (L) 13.9 - 16.3 g/dL Hematocrit 33.0 (L) 41.0 - 53.0 % MCV 90 80 - 100 fL MCH 28.9 26.0 - 34.0 pg MCHC 32.2 32.0 - 35.9 g/dL Platelet 267 150 - 400 K/uL RDW-CV 13.8 11.5 - 14.5 % MPV 7.7 7.5 - 11.2 fL Neutrophils 87.5 (H) 31.0 - 76.0 % Neutrophil # 15.95 (H) 1.50 - 8.00 K/uL Lymphocytes 3.6 (L) 24.0 - 44.0 % Lymphocytes # 0.66 (L) 1.00 - 4.80 K/uL Monocytes 8.3 2.0 - 11.0 % Monocyte # 1.52 (H) 0.20 - 1.00 K/uL Eosinophil 0.4 0.1 - 4.0 % Eosinophil # 0.08 0.00 - 0.70 K/uL Basophils 0.2 <=1.9 % Basophil # 0.03 0.00 - 0.20 K/uL MDW 21 (H) <=20 Findings of tests personally reviewed OSH CT chest,abdomen pelvis wo con on 08-24-2021 IMPRESSION: 1. Moderate right-sided pleural effusion. Trace left-sided pleural effusion. Findings are new compared to the prior study from 2019. 2. Consolidative changes involving the lower lobes, lesser degree right upper lobe. Pneumonia is suspected. 3. Presumed loculated fluid collection is seen within the right paracolic gutter measuring approximately 5.6 x 4.1 x 12.7 cm. No air bubbles are seen within the collection to suggest absc ess. Finding is likely postoperative given the history of recent appendectomy. 4. CT (more content not included)... Normal [employer] ED Provider Noteson 08-25-19 22 Consultant Authentication Interface Message Text NS for KB 86yM PMH of HTN and appendectomy 07/28/21. Transfer from [facility] due to syncope, found to have abdominal fluid mass, pleural effusion (4L NC now), b/l leg edema (new), PNA, and fecal impaction. Small fluid bolus ordered and patient is being evaluated by ACS. Labs pending now, ordered for azithromycin. MICU IR placed drain Abx onboard 500cc LR 125 drip NS DIONISIO Lactate improving BMP improving Lytes improving Pt was transferred to MICU before I was able to assume care of patient. Normal [facility] [place] Consultant Authentication Interface Message Text ED RESIDENT CONTINUATION OF CARE NOTE Fidel Palomino was signed out to me at 7:18 PM Briefly, he presented to the ED for syncope, pericolic gutter abscess s/p appendectomy 07/2021 and PNA Signout note reviewed. Clinical Course: ED Course as of 08/25/211917e Aug 25, 2021 0551 Lactic Acid(!): Lactate 2.2(!) Mild lactate elevation, patient getting gentle fluids now [SP] 0551 WBC(!): 18.2 New leukocytosis noted, moderate anemia noted as well, no thrombocytopenia appreciated [SP] 0602 INR(!): 1.36 Mild INR elevation noted, patient is not on anticoagulation [SP] 0709 B Type Natriuretic Peptide(!): BNP 321.0(!) Mild elevation [KB] 0710 Hepatic Function Panel(!): Albumin 1.7(!) Bilirubin, Direct 0.40(!) Bilirubin, Total 0.7 Alkaline Phosphatase 229(!) ALT (SGPT) 125(!) AST (SGOT) 83(!) Protein, Total 5.6(!) [KB] 0712 Basic Metabolic Panel(!): Glucose 134(!) Sodium 132(!) Potassium 3.7 Carbon Dioxide 33(!) Chloride 88(!) BUN 28(!) Creatinine 1.96(!) Calcium 7.9(!) Anion Gap 15 Estimated GFR 30(!) Mild elevated Cr., hyponatremia and hypochloremia [KB] 0713 Hepatic Function Panel(!): Albumin 1.7(!) Bilirubin, Direct 0.40(!) Bilirubin, Total 0.7 Alkaline Phosphatase 229(!) ALT (SGPT) 125(!) AST (SGOT) 83(!) Protein, Total 5.6(!) Transaminitis and alk phos/ bilirubin elevations [KB] 0757 SpO2: 93 % [KB] 0817 SpO2: 93 % [KB] 0953 CT Pulm Emb Chest IMPRESSION: 1. No acute pulmonary embolism identified. PE cannot be evaluated beyond the segmental level due to the limitations above. 2. Moderate right and small left pleural effusions with adjacent atelectasis. Superimposed infection is not favored but would be difficult to exclude. 3. Small volume upper abdominal ascites, with partially visualized postoperative fluid collection. 4. Three-vessel coronary artery disease. 5. Gallbladder wall thickening/edema is likely reactive. The gallbladder is nondistended. [KB] 1021 URINALYSIS,AUTO-IN OFFICE: Color Yellow Appearance Clear pH 5.5 Spec [place] <=1.005 Protein Negative Glucose Negative Ketones Negative Bilirubin Negative Urobilinogen 0.2 Blood Negative Leuk. Esterase Negative Nitrite Negative Clear, s/p rocephin and azithro [KB] 1209 SpO2: 93 % [KB] 1455 Complete Blood Count(!): WBC 16.5(!) RBC 3.22(!) Hemoglobin 9.5(!) Hematocrit 28.8(!) MCV 90 MCH 29.5 MCHC 32.9 Platelet 236 RDW-CV% 13.5 MPV 7.6 Improvement of leukocytosis, 1 point Hb drop, likely dilutional [KB] 1456 Lactic Acid: Lactate 1.0 Resolved [KB] 1456 VENOUS BLOOD GAS(!): pH,venous 7.416(!) pCO2 52.5(!) PvO2 43(!) Oxygen Saturation 75.6(!) Base Excess, Venous 7.8(!) HCO3- (Bicarbonate) 33(!) Mild Co2 retention [KB] 1916 Basic Metabolic Panel(!): Glucose 136(!) Sodium 135 Potassium 3.7 Carbon Dioxide 32(!) Chloride 90(!) BUN 26(!) Creatinine 1.63(!) Calcium 7.7(!) Anion Gap 17 Estimated GFR 38(!) Improved electrolytes and improvement of DIONISIO [KB] 1918 US CATH DRAINAGE PERITONEAL IMPRESSION: Technically successful ultrasound-guided placement of a 10 Malagasy pigtail catheter into right paracolic gutter abscess. [KB] ED Course User Index [KB] Jia Jiang DO [SP] Javon Gray MD Medical Decision MakinyM PMH of HTN and appendectomy 07/28/21. Transfer from [facility] due to syncope, found to have abdominal fluid mass, pleural effusion (4L NC now), b/l leg edema (new), PNA, and fecal impaction. Small fluid bolus ordered and patient is being evaluated by ACS. ??? ACS consulted and recommend admission to medicine for fluid resuscitation and management of DIONISIO and pneumonia. ACS also ordered IR placement of abdominal drain for fluid collection and concern for abscess in pericolic gutter. During my care, the patient was stable, however workup was concerning for mild lactate and leukocytosis with DIONISIO. On reevaluation, pateint had tachypnea with new oxygen requirement at 4L without imaging to support increases O2 requirement. CT PE ordered, which ruled out PE. Patient not suitable for RNF given O2 requirement and increased WOB. Discussed admission at length with ACS, SDU and MICU, and plan was for admission to SDU if drain placed while patient still in the ED or MICU otherwise. Patient given vancomycin, rocephin, and flagyl, drain ultimately completed by IR, patient reports feeling better with less pain and less WOB. Repeat labs show improvement of DIONISIO, decreased WBC, improvement in lytes, and resolution of lactate. Patient ultimately accepted for admission to MICU for further management. Discussed findings, hospital course, and current medical plan with the patient and his , and they are amenable to admission plan. Plan: MICU --------- IMPRESSION AND DISPOSITION ------- Clinical Impression Diagnosis Com (more content not included)... Normal [facility] [employer] Message Text 86yM PMH of HTN and appendectomy 07/28/21. Transfer from [facility] due to syncope, found to have abdominal fluid mass, pleural effusion (4L NC now), b/l leg edema (new), PNA, and fecal impaction. Small fluid bolus ordered and patient is being evaluated by ACS. Labs pending now, ordered for azithromycin. [ ] ACS recs [ ] likely admit medicine Normal [facility] [employer] Interface Message Text 86yM PMH of HTN and appendectomy 07/28/21. Transfer from [facility] due to syncope, found to have abdominal fluid mass, pleural effusion (4L NC now), b/l leg edema (new), PNA, and fecal impaction. Small fluid bolus ordered and patient is being evaluated by ACS. Labs pending now, ordered for azithromycin. Normal [facility] [employer] Interface Message Text EMERGENCY DEPARTMENT - VISIT NOTE --------- HISTORY OF PRESENT ILLNESS ----- Chief Complaint Patient presents with * Chart tx from [facility] for post-op complications, apx removed 07/28/21, having fluid build up and posisble cyst found at surgical site, possible pna found on chest xray at OSH, no BM in 5 days not needed - patient preferred language is Sudanese. HPI History is provided by the patient and chart review. The patient had an appendectomy on 07/28/2021 and subsequently discharged home. The patient reports that he initially presented to the outside ED he is because of multiple syncopal episodes at home. He denies any head trauma with these syncopal episodes. However, over the past 5 days the patient has not been able to pass stool at all and has had very poor p.o. intake. [facility] emergency department for further evaluation where he was found to have a intra-abdominal abscess as well as bilateral pleural effusions with possible pneumonia. Because of the complex nature of his presentation, the patient was transferred to [facility] for further management. While ed route to [facility], the patient began to have substantial gas from his rectum S improvement in his abdominal swelling. The patient reports he has had worsening bilateral leg swelling since his surgery. He has never had leg swelling this before. He states he has mild shortness of breath when lying flat this has been going on for the past several days. He denies any cough, chest pain, palpitations, syncope. REVIEW OF SYSTEMS Review of Systems Constitutional: Positive for fatigue. Negative for chills and fever. HENT: Negative for hearing loss and sore throat. Eyes: Negative for visual disturbance. Respiratory: Positive for shortness of breath. Negative for cough and chest tightness. Cardiovascular: Negative for chest pain and palpitations. Gastrointestinal: Positive for abdominal distention, abdominal pain, constipation and nausea. Negative for blood in stool, diarrhea and vomiting. Endocrine: Negative for polydipsia and polyuria. Genitourinary: Negative for dysuria, flank pain and hematuria. Musculoskeletal: Negative for back pain, myalgias and neck pain. Skin: Negative for rash and wound. Neurological: Positive for light-headedness. Negative for dizziness, syncope, weakness, numbness and headaches. PAST HISTORY Pertinent Past History: HTN Pertinent Family History: No family history on file. Pertinent Social History: Social History: denies etoh use, drug use or tobacco use PHYSICAL EXAM - BP 132/64 Pulse 82 Temp 97.5 ???F (36.4 ???C) (Oral) Resp (!) 26 SpO2 93% Physical Exam Vitals and nursing note reviewed. Exam conducted with a cardboard cutter present. Constitutional: General: He is not in acute distress. Appearance: Normal appearance. HENT: Head: Normocephalic and atraumatic. Mouth/Throat: Mouth: Mucous membranes are dry. Pharynx: Oropharynx is clear. No oropharyngeal exudate or posterior oropharyngeal erythema. Eyes: General: No scleral icterus. Right eye: No discharge. Left eye: No discharge. Extraocular Movements: Extraocular movements intact. Pupils: Pupils are equal, round, and reactive to light. Cardiovascular: Rate and Rhythm: Normal rate and regular rhythm. Pulses: Normal pulses. Heart sounds: Normal heart sounds. No murmur heard. No friction rub. No gallop. Pulmonary: Effort: No respiratory distress. Breath sounds: No stridor. Rales (b/l lung bases) present. No wheezing or rhonchi. Comments: Mild tachypnea noted, on 4L NC sating mid 90s. Abdominal: General: Abdomen is flat. There is distension. Palpations: Abdomen is soft. There is no mass. Tenderness: There is no abdominal tenderness. There is no right CVA tenderness, left CVA tenderness, guarding or rebound. Hernia: No hernia is present. Comments: Reduced bowel sounds globally, well healing surgical access sites from laparoscopic surgery Musculoskeletal: General: No signs of injury. Right lower leg: Edema (2+, pitting) present. Left lower leg: Edema (2+, pitting) present. Skin: General: Skin is warm and dry. Capillary Refill: Capillary refill takes less than 2 seconds. Coloration: Skin is pale. Findings: No erythema or rash. Neurological: General: No focal deficit present. Mental Status: He is alert. Psychiatric: Mood and Affect: Mood normal. Behavior: Behavior normal. MEDICAL DECISION MAKING and ED COURSE Nursing triage and assessment notes reviewed and incorporated Chart Reviewed: Summary of pertinent elements includ (more content not included)... Normal [facility] [employer] [facility] HEPATIC FUNCTION PANELon Albumin [Mass/Vol] 1.7 g/dL Low 3.4-5.1 [facility] Comment on above: Performed By: #### L IP, MG, HEPATIC, CH8 #### [facility] [address] [place] [address], ALK 229 IU/L High 40-200 [facility] [employer] [facility] Comment on above: Performed By: #### L IP, MG, HEPATIC, CH8 #### [facility] [address] [place] [address], ALT [Catalytic activity/Vol] 125 U/L High 7-40 [facility] Comment on above: Performed By: #### L IP, MG, HEPATIC, CH8 #### [facility] [address] [place] [address], AST [Catalytic activity/Vol] 83 U/L High 7-40 [facility] Comment on above: Performed By: #### L IP, MG, HEPATIC, CH8 #### [facility] [address] [place] [address], Bilirubin [Mass/Vol] 0.7 mg/dL Normal 0.1-1.5 [facility] Comment on above: Performed By: #### L IP, MG, HEPATIC, CH8 #### [facility] [address] [place] [address], Bilirubin.direct [Mass/Vol] 0.40 mg/dL High 0.10-0.30 [facility] Comment on above: Performed By: #### L IP, MG, HEPATIC, CH8 #### [facility] [address] [place] [address], Protein [Mass/Vol] 5.6 g/dL Low 5.7-8.1 [facility] Comment on above: Performed By: #### L IP, MG, HEPATIC, CH8 #### [facility] [address] [place] [address], LACTIC ACIDon 08-25-2021 CR LACT 1.0 mmol/L Normal 0.5-2.0 [facility] Comment on above: Performed By: #### L IP, MG, HEPATIC, CH8 #### [facility] [address] [place] [address], CR LACT 2.2 mmol/L High 0.5-2.0 [facility] Comment on above: Performed By: #### L ACT #### [facility] [address] [place] [address], LIPASEon 08-25-2021 LIP 38 IU/L Normal <128 [facility] Comment on above: Performed By: #### L IP, MG, HEPATIC, CH8 #### [facility] [address] [place] [address], MAGNESIUMon 08-25-2021 Magnesium [Mass/Vol] 1.8 mg/dL Normal 1.6-2.8 [facility] Comment on above: Performed By: #### L IP, MG, HEPATIC, CH8 #### [facility] [address] [place] [address], PROTHROMBIN TIME AND INRon 0 08-25-2021 INR Coag (PPP) [Relative time] 1.36 {INR} High 0.90-1.10 [facility] [employer] [facility] Comment on above: Performed By: #### P T ####[facility] [id number] [place], [place], PT Coag (PPP) [Time] 15.0 s High 9.7-12.9 [facility] [employer] [facility] Comment on above: Performed By: #### P T ####[facility] [id number] [place], [place], Progress Noteson 08-25-2021 Consultant Authentication Interface Message Text Pharmacokinetic Dosing Service - VANCOMYCIN Initial Dosing Note Name: Fidel Palomino Age:[age] year old Gender: male Ht: Data Unavailable Wt: 81.6 kg Indication: Gastrointestinal/Intr aabdominal Desired Ranges: 10-15 Day of therapy: 1 Assessment and Recommendations: 08/25/21 HROBINSON1 - Day 1: Gastrointestinal/Intr aabdominal; Renal function: DIONISIO; Vanco load - none needed ; Maintenance dose: 1500 mg x1. Level due: 24 hours after last dose. Level not ordered. No loading dose of vancomycin is recommended. Maintenance dosing of vancomycin 1500 mg Once is recommended and has been ordered. A vancomycin level is due 24 hrs after the last dose. Pharmacy will post notes for trough levels upon return and for dose changes. The medication regimen has been updated per consult agreement procedures. Current Dose Active Vancomycin Orders (From admission, onward) None Lab Values: Creatinine Date Value Ref Range Status 08/25/2021 1.63 (H) 0.80 - 1.30 mg/dL Final 08/25/2021 1.96 (H) 0.80 - 1.30 mg/dL Final No results found for: VANCTRNo results found for: VANCR Creatinine clearance cannot be calculated (Unknown ideal weight.) Culture(s): PENDING Armond Cohn [facility] - Department of Pharmacy Services Normal [facility] TROPONIN Ion 08-25-2021 TROP I < 0.030 Normal <0.120 [facility] Comment on above: Result Comment: Rang e <=0.04 ng/mL: Negative Interpretation: Repeat testing in four to six hours if clinically indicated. Range 0.04-0.11 ng/mL: Suspected for acute myocardial injury. Interpretation: Serial measurements may be necessary to confirm or exclude the diagnosis of acute coronary syndrome. Repeat testing in four to six hours if clinically indicated. Range >=0.12 ng/mL: Results consistent with myocardial injury. Interpretation: Clinical and laboratory correlation recommended. Performed By: #### L IP, MG, HEPATIC, CH8 #### [facility] [address] [place] [address], TYPE AND SCREENon 08-25-2021 ABO and Rh group Nom (Bld) Blood group O Rh(D) positive Normal [facility] Comment on above: Performed By: #### L IP, MG, HEPATIC, CH8 #### [facility] [address] [place] [address], ABO and Rh group Nom (Bld) No Previous Results Normal [facility] Comment on above: Performed By: #### L IP, MG, HEPATIC, CH8 #### [facility] [address] [place] [address], ABSC INT Negative Normal [facility] Comment on above: Performed By: #### L IP, MG, HEPATIC, CH8 #### [facility] [address] [place] [address], URINALYSISon 08-25-2021 Glucose Ql (U) Negative Normal Negative [facility] Comment on above: Order Comment: A neg ative leukocyte esterase AND negative nitrite test or absence of pyuria (urine WBC count <= 5-10) make a UTI (urinary tract infection) very unlikely in a non-neutropenic adult (<=5% likelihood in many studies). A positive leukocyte esterase, nitrite and/or pyuria is a nonspecific result. This can be seen in conditions other than a UTI e.g. asymptomatic bacteriuria, gynecologic infections, sexually transmitted infections, and noninfectious conditions (positive predictive value for UTI around 50%) Performed By: #### C BC #### [facility] [address] [place] [address], U APPEAR Clear Normal Clear [facility] Comment on above: Order Comment: A neg ative leukocyte esterase AND negative nitrite test or absence of pyuria (urine WBC count <= 5-10) make a UTI (urinary tract infection) very unlikely in a non-neutropenic adult (<=5% likelihood in many studies). A positive leukocyte esterase, nitrite and/or pyuria is a nonspecific result. This can be seen in conditions other than a UTI e.g. asymptomatic bacteriuria, gynecologic infections, sexually transmitted infections, and noninfectious conditions (positive predictive value for UTI around 50%) Performed By: #### C BC #### [facility] [address] [place] [address], U BILI Negative Normal Negative [facility] Comment on above: Order Comment: A neg ative leukocyte esterase AND negative nitrite test or absence of pyuria (urine WBC count <= 5-10) make a UTI (urinary tract infection) very unlikely in a non-neutropenic adult (<=5% likelihood in many studies). A positive leukocyte esterase, nitrite and/or pyuria is a nonspecific result. This can be seen in conditions other than a UTI e.g. asymptomatic bacteriuria, gynecologic infections, sexually transmitted infections, and noninfectious conditions (positive predictive value for UTI around 50%) Performed By: #### C BC #### [facility] [address] [place] [address], U BLOOD Negative Normal Negative [facility] Comment on above: Order Comment: A neg ative leukocyte esterase AND negative nitrite test or absence of pyuria (urine WBC count <= 5-10) make a UTI (urinary tract infection) very unlikely in a non-neutropenic adult (<=5% likelihood in many studies). A positive leukocyte esterase, nitrite and/or pyuria is a nonspecific result. This can be seen in conditions other than a UTI e.g. asymptomatic bacteriuria, gynecologic infections, sexually transmitted infections, and noninfectious conditions (positive predictive value for UTI around 50%) Performed By: #### C BC #### [facility] [address] [place] [address], U COLOR Yellow Normal Yellow [facility] Comment on above: Order Comment: A neg ative leukocyte esterase AND negative nitrite test or absence of pyuria (urine WBC count <= 5-10) make a UTI (urinary tract infection) very unlikely in a non-neutropenic adult (<=5% likelihood in many studies). A positive leukocyte esterase, nitrite and/or pyuria is a nonspecific result. This can be seen in conditions other than a UTI e.g. asymptomatic bacteriuria, gynecologic infections, sexually transmitted infections, and noninfectious conditions (positive predictive value for UTI around 50%) Performed By: #### C BC #### [facility] [address] [place] [address], U KETONE Negative Normal Negative [facility] Comment on above: Order Comment: A neg ative leukocyte esterase AND negative nitrite test or absence of pyuria (urine WBC count <= 5-10) make a UTI (urinary tract infection) very unlikely in a non-neutropenic adult (<=5% likelihood in many studies). A positive leukocyte esterase, nitrite and/or pyuria is a nonspecific result. This can be seen in conditions other than a UTI e.g. asymptomatic bacteriuria, gynecologic infections, sexually transmitted infections, and noninfectious conditions (positive predictive value for UTI around 50%) Performed By: #### C BC #### [facility] [address] [place] [address], U LEUK Trace Abnormal Negative [facility] Comment on above: Order Comment: A neg ative leukocyte esterase AND negative nitrite test or absence of pyuria (urine WBC count <= 5-10) make a UTI (urinary tract infection) very unlikely in a non-neutropenic adult (<=5% likelihood in many studies). A positive leukocyte esterase, nitrite and/or pyuria is a nonspecific result. This can be seen in conditions other than a UTI e.g. asymptomatic bacteriuria, gynecologic infections, sexually transmitted infections, and noninfectious conditions (positive predictive value for UTI around 50%) Performed By: #### C BC #### [facility] [address] [place] [address], U NITRITE Negative Normal Negative [facility] Comment on above: Order Comment: A neg ative leukocyte esterase AND negative nitrite test or absence of pyuria (urine WBC count <= 5-10) make a UTI (urinary tract infection) very unlikely in a non-neutropenic adult (<=5% likelihood in many studies). A positive leukocyte esterase, nitrite and/or pyuria is a nonspecific result. This can be seen in conditions other than a UTI e.g. asymptomatic bacteriuria, gynecologic infections, sexually transmitted infections, and noninfectious conditions (positive predictive value for UTI around 50%) Performed By: #### C BC #### [facility] [address] [place] [address], U PH 6.0 Normal 5.0-8.0 [facility] Comment on above: Order Comment: A neg ative leukocyte esterase AND negative nitrite test or absence of pyuria (urine WBC count <= 5-10) make a UTI (urinary tract infection) very unlikely in a non-neutropenic adult (<=5% likelihood in many studies). A positive leukocyte esterase, nitrite and/or pyuria is a nonspecific result. This can be seen in conditions other than a UTI e.g. asymptomatic bacteriuria, gynecologic infections, sexually transmitted infections, and noninfectious conditions (positive predictive value for UTI around 50%) Performed By: #### C BC #### [facility] [address] [place] [address], U PROTEIN Negative Normal Negative [facility] Comment on above: Order Comment: A neg ative leukocyte esterase AND negative nitrite test or absence of pyuria (urine WBC count <= 5-10) make a UTI (urinary tract infection) very unlikely in a non-neutropenic adult (<=5% likelihood in many studies). A positive leukocyte esterase, nitrite and/or pyuria is a nonspecific result. This can be seen in conditions other than a UTI e.g. asymptomatic bacteriuria, gynecologic infections, sexually transmitted infections, and noninfectious conditions (positive predictive value for UTI around 50%) Performed By: #### C BC #### [facility] [address] [place], [place], U RBC 3-5 Abnormal 0-2 [facility] Comment on above: Order Comment: A neg ative leukocyte esterase AND negative nitrite test or absence of pyuria (urine WBC count <= 5-10) make a UTI (urinary tract infection) very unlikely in a non-neutropenic adult (<=5% likelihood in many studies). A positive leukocyte esterase, nitrite and/or pyuria is a nonspecific result. This can be seen in conditions other than a UTI e.g. asymptomatic bacteriuria, gynecologic infections, sexually transmitted infections, and noninfectious conditions (positive predictive value for UTI around 50%) Performed By: #### C BC #### [facility] [address], [place], U SG 1.023 Normal 1.005-1.030 [facility] Comment on above: Order Comment: A neg ative leukocyte esterase AND negative nitrite test or absence of pyuria (urine WBC count <= 5-10) make a UTI (urinary tract infection) very unlikely in a non-neutropenic adult (<=5% likelihood in many studies). A positive leukocyte esterase, nitrite and/or pyuria is a nonspecific result. This can be seen in conditions other than a UTI e.g. asymptomatic bacteriuria, gynecologic infections, sexually transmitted infections, and noninfectious conditions (positive predictive value for UTI around 50%) Performed By: #### C BC #### [facility] [address], [place], U UROBILI Negative Normal 0.1 - 1.0 [facility] Comment on above: Order Comment: A neg ative leukocyte esterase AND negative nitrite test or absence of pyuria (urine WBC count <= 5-10) make a UTI (urinary tract infection) very unlikely in a non-neutropenic adult (<=5% likelihood in many studies). A positive leukocyte esterase, nitrite and/or pyuria is a nonspecific result. This can be seen in conditions other than a UTI e.g. asymptomatic bacteriuria, gynecologic infections, sexually transmitted infections, and noninfectious conditions (positive predictive value for UTI around 50%) Performed By: #### C BC #### [facility] [address], [place], U WBC 3-5 Abnormal 0-2 [facility] Comment on above: Order Comment: A neg ative leukocyte esterase AND negative nitrite test or absence of pyuria (urine WBC count <= 5-10) make a UTI (urinary tract infection) very unlikely in a non-neutropenic adult (<=5% likelihood in many studies). A positive leukocyte esterase, nitrite and/or pyuria is a nonspecific result. This can be seen in conditions other than a UTI e.g. asymptomatic bacteriuria, gynecologic infections, sexually transmitted infections, and noninfectious conditions (positive predictive value for UTI around 50%) Performed By: #### C BC #### [facility] [address] [place] [address], URINALYSIS,AUTO-IN OFFICEon 08-25-2021 BILIRUBIN, URINE POC Negative Normal Negative [facility] Comment on above: Order Comment: TEST PERFORMED AT:Emergency Department POC [id number] [place] [address] Performed By: #### L IP, MG, HEPATIC, CH8 #### [facility] [address] [place] [address], BLOOD, URINE POC Negative Normal Negative [facility] Comment on above: Order Comment: TEST PERFORMED AT:Emergency Department POC [id number] [place] [address] Performed By: #### L IP, MG, HEPATIC, CH8 #### [facility] [address] [place] [address], CLARITY, POC Clear Normal [facility] Comment on above: Order Comment: TEST PERFORMED AT:Emergency Department POC [id number] [place] [address] Performed By: #### L IP, MG, HEPATIC, CH8 #### [facility] [address] [place] [address], COLOR, POC Yellow Normal [facility] Comment on above: Order Comment: TEST PERFORMED AT:Emergency Department POC [id number] [place] [address] Performed By: #### L IP, MG, HEPATIC, CH8 #### [facility] [address] [place] [address], GLUCOSE, URINE POC Negative Normal Negative [facility] Comment on above: Order Comment: TEST PERFORMED AT:Emergency Department POC [id number] [place] [address] Performed By: #### L IP, MG, HEPATIC, CH8 #### [facility] [address] [place] [address], KETONES, URINE POC Negative Normal Negative [facility] Comment on above: Order Comment: TEST PERFORMED AT:Emergency Department POC [id number] [place] [address] Performed By: #### L IP, MG, HEPATIC, CH8 #### [facility] [address] [place] [address], LEUKOCYTES, URINE POC Negative Normal Negative [facility] Comment on above: Order Comment: TEST PERFORMED AT:Emergency Department POC [id number] [place] [address] Performed By: #### L IP, MG, HEPATIC, CH8 #### [facility] [address] [place] [address], NITRITES, URINE POC Negative Normal Negative [facility] Comment on above: Order Comment: TEST PERFORMED AT:Emergency Department POC [id number] [place] [address] Performed By: #### L IP, MG, HEPATIC, CH8 #### [facility] [address] [place] [address], PH, URINE POC 5.5 Normal 5.0-8.0 [facility] Comment on above: Order Comment: TEST PERFORMED AT:Emergency Department POC [id number] [place] [address] Performed By: #### L IP, MG, HEPATIC, CH8 #### [facility] [address] [place] [address], PROTEIN, URINE POC Negative Normal Negative [facility] Comment on above: Order Comment: TEST PERFORMED AT:Emergency Department POC [id number] [place] [address] Performed By: #### L IP, MG, HEPATIC, CH8 #### [facility] [address] [place] [address], SPECIFIC GRAVITY, POC <=1.005 Normal 1.005 - 1.030 [facility] Comment on above: Order Comment: TEST PERFORMED AT:Emergency Department POC [id number] [place] [address] Performed By: #### L IP, MG, HEPATIC, CH8 #### [facility] [address] [place] [address], UROBILINOGEN, URINE POC 0.2 Normal 0.2 - 1.0 [facility] Comment on above: Order Comment: TEST PERFORMED AT:Emergency Department POC [id number] [place] [address] Performed By: #### L IP, MG, HEPATIC, CH8 #### [facility] [address] [place] [address], CULTURE URINEon 08-24-2021 CULTURE URINE Isolate 1 Escherichia coli >100,000 cfu/ml of ORGANISM 1 Escherichia coli ANTIBIOTIC M.I.C RX STATUS Ampicillin 4 S F Ampicillin/Sulbactam <=2 S F Piperacillin/Tazobact am <=4 S F Cefazolin <=4 S F Ceftazidime <=1 S F Ceftriaxone <=1 S F Ertapenem <=0.5 S F Imipenem <=0.25 S F Amikacin <=2 S F Gentamicin <=1 S F Tobramycin <=1 S F Ciprofloxacin <=0.25 S F Levofloxacin <=0.12 S F Nitrofurantoin <=16 S F Trimethoprim/Sulfamet hoxazole <=20 S F Normal [facility] Comment on above: Performed By: #### H STROPN #### [facility] [address] [place] [address] Dr. Uziel Reid BNPon 08-22-2021 Natriuretic peptide B (Bld) [Mass/Vol] 700.0 pg/mL Normal <=1,800.0 [facility] Comment on above: Performed By: #### H STROPN #### [facility] [address] [place] [address] Dr. Uziel Reid CBC AUTO DIFFon 08-22-2021 BASO # 0.0 103/ul Normal 0.0-0.1 [facility] Comment on above: Performed By: #### C BC #### [facility] [address] [place] [address] Dr. Uziel Reid Basophils/100 WBC (Bld) 0.3 % Normal 0.2-2.0 [facility] Comment on above: Performed By: #### C BC #### [facility] [address] [place] [address] Dr. Uziel Reid EO # 0.1 103/ul Normal 0.0-0.7 [facility] Comment on above: Performed By: #### C BC #### [facility] [address] [place] [address] Dr. Uziel Reid Eosinophils/100 WBC (Bld) 0.7 % Critically low 0.9-7.0 [facility] Comment on above: Performed By: #### C BC #### [facility] [address] [address] [address] Uziel Reid Erythrocyte distribution width (RBC) [Ratio] 13.3 % Normal 11.0-15.0 [facility] Comment on above: Performed By: #### C BC #### [facility] [address] [place] [address] Dr. Uziel Reid Hematocrit (Bld) [Volume fraction] 31.4 % Critically low 42.0-54.0 [facility] Comment on above: Performed By: #### C BC #### [facility] [address] [place] [address] Dr. Uziel Reid Hemoglobin (Bld) [Mass/Vol] 10.1 g/dL Critically low 14.0-18.0 [facility] Comment on above: Performed By: #### C BC #### [facility] [address] [place] [address] Dr. Uziel Reid IG # 0.10 10e3/ul Critically high 0.00-0.03 [facility] Comment on above: Performed By: #### C BC #### [facility] [address] [place] [address] Dr. Uziel Reid IG % 0.7 % Critically high 0.0-0.5 [facility] Comment on above: Performed By: #### C BC #### [facility] [address] [place] [address] Dr. Uziel Reid LYMPH # 0.9 103/ul Critically low 1.2-3.8 [facility] Comment on above: Performed By: #### C BC #### [facility] [address] [place] [address] Dr. Uziel Reid Lymphocytes/100 WBC (Bld) 6.0 % Critically low 20.5-60.0 [facility] Comment on above: Performed By: #### C BC #### [facility] [address] [place] [address] Dr. Uziel Reid MANUAL DIFF REQ NO Normal [facility] Comment on above: Performed By: #### C BC #### [facility] [address] [address] [address] Uziel Reid MCH (RBC) [Entitic mass] 29.6 pg Normal 25.9-34.0 [facility] Comment on above: Performed By: #### C BC #### [facility] [address] [address] [address] Uziel Reid MCHC (RBC) [Mass/Vol] 32.2 g/dL Normal 29.9-35.2 [facility] Comment on above: Performed By: #### C BC #### [facility] [address] [place] [address] Dr. Uziel Reid MCV (RBC) [Entitic vol] 92.1 fL Normal 80.0-94.0 [facility] Comment on above: Performed By: #### C BC #### [facility] [address] [place] [address] Dr. Uziel Reid MONO # 1.5 103/ul Critically high 0.3-0.8 [facility] Comment on above: Performed By: #### C BC #### [facility] [address] [place] [address] Dr. Uziel Reid Monocytes/100 WBC (Bld) 9.8 % Normal 1.7-12.0 [facility] Comment on above: Performed By: #### C BC #### [facility] [address] [place] [address] Dr. Uziel Reid NEUT # 12.7 103/ul Critically high 1.4-6.5 [facility] Comment on above: Performed By: #### C BC #### [facility] [address] [place] [address] Dr. Uziel Reid Neutrophils/100 WBC (Bld) 82.5 % Critically high 43.0-75.0 [facility] Comment on above: Performed By: #### C BC #### [facility] [address] [place] [address] Dr. Uziel Reid Platelet mean volume (Bld) [Entitic vol] 9.8 fL Normal 9.5-13.5 [facility] Comment on above: Performed By: #### C BC #### [facility] [address] [place], [place] [address] Dr. Uziel Reid PLT 199 103/ul Normal 150-450 [facility] Comment on above: Performed By: #### C BC #### [facility] [address] [place], [place] [address] Dr. Uziel Redi RBC 3.41 106/ul Critically low 4.70-6.[address] [facility] Comment on above: Performed By: #### C BC #### [facility] [address] [place], [place] [address] Dr. Uziel Reid WBC 15.3 103/ul Critically high 4.0-11.0 [facility] Comment on above: Performed By: #### C BC #### [facility] [address] [address] [address] Uziel Reid Covid-19 PCR (CVDTB)on 08-02 SARS-CoV-2 (COVID-19) RNA ALFONSO+probe Ql (Unsp spec) Not detected Normal NOT DETECTED [facility] Comment on above: Result Comment: When diagnostic testing is negative, the possibility of a false negative should be considered in the context of a patient's recent exposures and the presence of clinical signs and symptoms consistent with SARS-CoV-2. This test is not yet approved or cleared by the [place] Food and Drug Administration (FDA). This test was developed by [employer], [place], [place]. The performance characteristics of this test were validated by [facility]. The results are not intended to be used as the sole means for clinical diagnosis or patient management decisions. [facility] is authorized under Clinical Laboratory Improvement Amendments (CLIA) to perform high- complexity testing. This test is not yet approved or cleared by the [place] FDA. When there are no FDA-approved or cleared tests available, and other criteria are met, FDA can make tests available under an emergency access mechanism called an Emergency Use Authorization (EUA). The EUA for this test is supported by the [place] of Health and Human Service's declaration that circumstances exist to justify the emergency use of in vitro diagnostics for the detection and/or diagnosis of the virus that causes COVID-19. This EUA will remain in effect for the duration of the COVID-19 declaration justifying emergency of IVDs, unless it is terminated or revoked by the FDA (after which the test may no longer be used). Performed By: #### C BCMAN #### [facility] [address] [address] [address] Uziel Reid ER URINE PROFILEon 2 Bilirubin Ql (U) Negative Normal NEGATIVE [facility] Comment on above: Performed By: #### B MP, PHOS, MG #### [facility] [address] [address] [address] Uziel Reid Clarity (U) CLEAR Normal CLEAR [facility] Comment on above: Performed By: #### B MP, PHOS, MG #### [facility] [address] [place] [address] Dr. Uziel Reid Color (U) LT. YELLOW Normal YELLOW [facility] Comment on above: Performed By: #### B MP, PHOS, MG #### [facility] [address] [place] [address] Dr. Uziel STEIN A micrscopic examination will be performed if indicated. Normal [facility] Comment on above: Performed By: #### B MP, PHOS, MG #### [facility] [address] [place] [address] Dr. Uziel Reid Glucose Ql (U) Negative Normal NEGATIVE [facility] Comment on above: Performed By: #### B MP, PHOS, MG #### [facility] [address] [address] [address] Uziel Reid Hemoglobin Ql (U) Negative Normal NEGATIVE [facility] [place] Comment on above: Performed By: #### B MP, PHOS, MG #### [facility] [address] [place] [address] Dr. Uziel Reid Ketones Ql (U) Negative Normal NEGATIVE [facility] Comment on above: Performed By: #### B MP, PHOS, MG #### [facility] [address] [place] [address] Dr. Uziel Reid LEUKOCYTES TRACE Abnormal NEGATIVE [facility] Comment on above: Performed By: #### B MP, PHOS, MG #### [facility] [address] [address] [address] Uziel Reid Nitrite Ql (U) Positive Abnormal NEGATIVE [facility] Comment on above: Performed By: #### B MP, PHOS, MG #### [facility] [address] [address] [address] Uziel Reid pH (U) 6.0 [pH] Normal 5-9 [facility] Comment on above: Performed By: #### B MP, PHOS, MG #### [facility] [address] [address] [address] Uziel Reid SPEC GRAVITY 1.010 Normal 1.005-<=1.025 [facility] Comment on above: Performed By: #### B MP, PHOS, MG #### [facility] [address] [place] [address] Dr. Uziel Reid UA PROTEIN Negative Normal NEGATIVE/ TRACE [facility] Comment on above: Performed By: #### B MP, PHOS, MG #### [facility] [address] [address] [address] Uziel Reid UR MICRO IND INDICATED Normal [facility] Comment on above: Performed By: #### B MP, PHOS, MG #### [facility] [address] [address] [address] Uziel Reid Urobilinogen Qn (U) 0.2 {Sushma'U}/dL Normal 0.2 - 1. 0 [facility] Comment on above: Performed By: #### B MP, PHOS, MG #### [facility] [address] [address] [address] Uziel Reid PROF 14(COMP METB)on 022 Albumin [Mass/Vol] 1.8 g/dL Critically low 3.5-5.0 Th e [facility] Comment on above: Performed By: #### H STROPN #### [facility] [address] [place] [address] Dr. Uziel Reid Albumin/Globulin [Mass ratio] 0.4 {ratio} Normal [facility] Comment on above: Performed By: #### H STROPN #### [facility] [address] [address] [address] Uziel Reid ALP [Catalytic activity/Vol] 211 U/L Critically high 38-126 [facility] Comment on above: Performed By: #### H STROPN #### [facility] [address] [address] [address] Uziel Reid ALT [Catalytic activity/Vol] 104 U/L Critically high 21-72 [facility] Comment on above: Performed By: #### H STROPN #### [facility] [address] [address] [address] Uziel Reid Anion gap [Moles/Vol] 7.1 mmol/L Normal [facility] Comment on above: Performed By: #### H STROPN #### [facility] [address] [address] [address] Uziel Reid AST [Catalytic activity/Vol] 86 U/L Critically high 17-59 [facility] Comment on above: Performed By: #### H STROPN #### [facility] [address] [address] [address] Uziel Reid Bilirubin [Mass/Vol] 0.7 mg/dL Normal 0.2-1.3 [facility] Comment on above: Performed By: #### H STROPN #### [facility] [address] [address] [address] Uziel Reid Calcium [Mass/Vol] 8.2 mg/dL Critically low 8.4-10.2 [facility] Comment on above: Performed By: #### H STROPN #### [facility] [address] [address] [address] Uziel Reid Chloride [Moles/Vol] 88 mmol/L Critically low 98-107 [facility] Comment on above: Performed By: #### H STROPN #### [facility] [address] [address] [address] Uziel Reid CO2 [Moles/Vol] 36.3 mmol/L Critically high 22.0-30.0 [facility] Comment on above: Performed By: #### H STROPN #### [facility] [address] [address] [address] Uziel Reid Creatinine [Mass/Vol] 1.75 mg/dL Critically high 0.66-1.25 [facility] Comment on above: Performed By: #### H STROPN #### [facility] [address] [address] [address] Uziel Reid EGFR-AF CUBAN 45 mL/min/1.73m2 Critically low >=60 [facility] Comment on above: Performed By: #### H STROPN #### [facility] [address] [address] [address] Uziel Reid EGFR-NON AF CUBAN 37 mL/min/1.73m2 Critically low >=60 [facility] Comment on above: Performed By: #### H STROPN #### [facility] [address] [address] [address] Uziel Reid Globulin (S) [Mass/Vol] 5.0 g/dL Normal [facility] Comment on above: Performed By: #### H STROPN #### [facility] [address] [address] [address] Uziel Reid Glucose [Mass/Vol] 226 mg/dL Critically high 74-106 [facility] Comment on above: Performed By: #### H STROPN #### [facility] [address] [address] [address] Uziel Reid Potassium [Moles/Vol] 3.4 mmol/L Normal 3.4-5.0 [facility] Comment on above: Performed By: #### H STROPN #### [facility] [address] [address] [address] Uziel Reid Protein [Mass/Vol] 6.8 g/dL Normal 6.1-8.2 [facility] Comment on above: Performed By: #### H STROPN #### [facility] [address] [address] [address] Uziel Reid Sodium [Moles/Vol] 128 mmol/L Critically low 137-145 Th [facility] Comment on above: Performed By: #### H STROPN #### [facility] [address] [address] [address] Uziel Reid Urea nitrogen [Mass/Vol] 30.0 mg/dL Critically high 9.0-20.0 [facility] Comment on above: Performed By: #### H STROPN #### [facility] [address] [address] [address] Uziel Reid Urea nitrogen/Creatinine [Mass ratio] 17.1 mg/mg Normal [facility] Comment on above: Performed By: #### H STROPN #### [facility] [address] [place] [address] Dr. Uziel Reid TROPONIN, HIGH SENSITIVITYon 08-22-2021 HSTROP 8.2 pg/mL Normal 4.0-42.2 [facility] Comment on above: Result Comment: CUT- OFF POINTS HAVE BEEN ESTABLISHED BASED ON THE FOURTH UNIVERSAL DEFINITIONS OF MYOCARDIAL INFARCTION. THE UPPER REFERENCE LIMIT (URL) OF TROPONIN, DEFINED THE 99TH PERCENTILE OF cTnI DISTRIBUTION IN A REFERENCE POPULATION, HAS BEEN CONFIRMED THE DECISION THRESHOLD FOR VA DIAGNOSIS. Performed By: #### H STROPN #### [facility] [address] [place] [address] Dr. Uziel Reid URINE MICROSCOPIC ONLYon BACTERIA MODERATE Abnormal NONE SEEN [facility] Comment on above: Performed By: #### B MP, PHOS, MG #### [facility] [address] [place] [address] Dr. Uziel Reid Bacteria identified Cx Nom (U) INDICATED Normal [facility] Comment on above: Performed By: #### B MP, PHOS, MG #### [facility] [address] [place] [address] Dr. Uziel Reid CAST NONE SEEN Normal NONE SEEN [facility] Comment on above: Performed By: #### B MP, PHOS, MG #### [facility] [address] [place] [address] Dr. Uziel Reid Crystals LM Nom (Urine sed) NONE SEEN Normal NONE SEEN [facility] Comment on above: Performed By: #### B MP, PHOS, MG #### [facility] [address] [place], [place] [address] Dr. Uziel Reid Epithelial cells LM Ql (Urine sed) NONE SEEN Normal NONE SEEN /RARE [facility] Comment on above: Performed By: #### B MP, PHOS, MG #### [facility] [address] [place], [place] [address] Dr. Uziel Reid MUCOUS NONE SEEN Normal NONE SEEN [facility] Comment on above: Performed By: #### B MP, PHOS, MG #### [facility] [address] [place], [place] [address] Dr. Uziel Reid RBC 0-2 Normal 0-2 [facility] Comment on above: Performed By: #### B MP, PHOS, MG #### [facility] [address] [address] [address] Uziel Reid WBC 10-20 Abnormal NONE SEEN [facility] Comment on above: Performed By: #### B MP, PHOS, MG #### [facility] [id number] Uziel Reid XR CHEST 1 Von 08-22-2021 XR CHEST 1 V EXAM: XR CHEST 1 V HISTORY: Fever COMPARISON: Chest x-ray 08/09/2021 TECHNIQUE: Single frontal view chest x-ray FINDINGS: Bilateral lung volume loss with bibasilar streaky pulmonary opacities reflecting subsegmental atelectasis or infiltrates. No large effusions, pneumothorax, or acute bony abnormality. Cardiac silhouette obscured by bilateral diaphragm. IMPRESSION: Bilateral lung volume loss with bibasilar streaky pulmonary opacities reflecting subsegmental atelectasis or infiltrates. Electronically authenticated by: GERARDO BRADY Date: 2021-08-22 00:30 Normal [facility] CBC W MANUAL DIFFon 08-18-19 22 ATYPICAL LYMPH # Normal [facility] Comment on above: Performed By: #### C FERDINAND #### [facility] [address] [address] [address] Uziel Reid ATYPICAL LYMPH % Normal [facility] Comment on above: Performed By: #### C FERDINAND #### [facility] [address] [place] [address] Dr. Uziel Reid BAND # Normal 0.0-0.3 [facility] Comment on above: Performed By: #### C BCSARIKA #### [facility] [address] [place] [address] Dr. Uziel Reid BAND % Normal 0-5 [facility] Comment on above: Performed By: #### C FERDINAND #### [facility] [address] [place] [address] Dr. Uziel Reid BASOM # 0.00 103/ul Normal 0.00-0.10 [facility] Comment on above: Performed By: #### C FERDINAND #### [facility] [address] [place] [address] Dr. Uziel Reid BASOM % 0.0 % Critically low 0.2-2.0 [facility] Comment on above: Performed By: #### C FERDINAND #### [facility] [address] [place] [address] Dr. Uziel Reid BLAST # Normal [facility] Comment on above: Performed By: #### C FERDINAND #### [facility] [address] [place] [address] Dr. Uziel Ried BLAST % Normal [facility] Comment on above: Performed By: #### C FERDINAND #### [facility] [address] [place] [address] Dr. Uziel Reid CORRECTED WBC Normal 4.0-11.0 [facility] Comment on above: Performed By: #### C FERDINAND #### [facility] [address] [place] [address] Dr. Uziel Reid EOS # 0.00 103/ul Normal 0.00-0.70 [facility] Comment on above: Performed By: #### C FERDINAND #### [facility] [address] [place] [address] Dr. Uziel Reid EOS% 0.0 % Critically low 0.9-7.0 [facility] Comment on above: Performed By: #### C FERDINAND #### [facility] [address] [place], [place] [id number] Dr. Uziel Reid HCT 31.8 % Critically low 42.0-54.0 [facility] Comment on above: Performed By: #### C FERDINAND #### [facility] [address] [place] [address] Dr. Uziel Reid HGB 10.2 g/dl Critically low 14.0-18.0 [facility] Comment on above: Performed By: #### C FERDINAND #### [facility] [address] [address] [address] Uziel Reid LYMPHM # 1.83 103/ul Normal 1.20-3.80 [facility] Comment on above: Performed By: #### C FERDINAND #### [facility] [address] [place] [address] Dr. Uziel Reid LYMPHM% 11.0 % Critically low 20.5-60.0 [facility] Comment on above: Performed By: #### C FERDINAND #### [facility] [address] [place] [address] Dr. Uziel Reid MCH 29.7 pg Normal 25.9-34.0 [facility] Comment on above: Performed By: #### C FERDINAND #### [facility] [address] [place] [address] Dr. Uziel Reid MCHC 32.1 g/dl Normal 29.9-35.2 [facility] Comment on above: Performed By: #### C FERDINAND #### [facility] [address] [place] [address] Dr. Uziel Reid MCV 92.7 fL Normal 80.0-94.0 [facility] Comment on above: Performed By: #### C FERDINAND #### [facility] [address] [place] [address] Dr. Uziel Reid METAMYELOCYTE # Normal [facility] Comment on above: Performed By: #### C FERDINAND #### [facility] [address] [place] [address] Dr. Uziel Reid METAMYELOCYTE % Normal [facility] Comment on above: Performed By: #### C FERDINAND #### [facility] [address] [address] [address] Uziel Reid MONOM# 1.83 103/ul Critically high 0.30-0.80 [facility] Comment on above: Performed By: #### C FERDINAND #### [facility] [address] [address] [address] Uziel Reid MONOM% 11.0 % Normal 1.7-12.0 [facility] Comment on above: Performed By: #### C FERDINAND #### [facility] [address] [address] [address] Uziel Reid MPV 9.8 fL Normal 9.5-13.5 [facility] Comment on above: Performed By: #### C FERDINAND #### [facility] [address] [address] [address] Uziel Reid MYELOCYTE # Normal [facility] Comment on above: Performed By: #### C FERDINAND #### [facility] [address] [address] [address] Uziel Reid MYELOCYTE % Normal [facility] Comment on above: Performed By: #### C FERDINAND #### [facility] [address] [place] [address] Dr. Uziel Reid NRBC Normal [facility] Comment on above: Performed By: #### C FERDINAND #### [facility] [address] [address] [address] Uziel Reid PLT 240 103/ul Normal 150-450 [facility] Comment on above: Performed By: #### C FERDINAND #### [facility] [address] [address] [address] Uziel Reid RBC 3.43 106/ul Critically low 4.70-6.[address] [facility] Comment on above: Performed By: #### C FERDINAND #### [facility] [address] [address] [address] Uziel Reid RDW 13.3 % Normal 11.0-15.0 [facility] Comment on above: Performed By: #### C FERDINAND #### [facility] [address] [address] [address] Uziel Reid SEG # 12.95 103/ul Critically high 1.40-6.50 [facility] Comment on above: Performed By: #### C FERDINAND #### [facility] [address] [address] [address] Uziel Ried SEG % 78.0 % Critically high 43.0-75.0 [facility] Comment on above: Performed By: #### C FERDINAND #### [facility] [address] [address] [address] Uziel Reid WBC 16.6 103/ul Critically high 4.0-11.0 [facility] Comment on above: Performed By: #### C FERDINAND #### [facility] [address] [place] [address] Dr. Uziel Reid PROF 14(COMP METB)on 022 Albumin [Mass/Vol] 1.9 g/dL Critically low 3.5-5.0 [facility] Comment on above: Performed By: #### B MP, PHOS, MG #### [facility] [address] [address] [address] Uziel Reid Albumin/Globulin [Mass ratio] 0.4 {ratio} Normal [facility] Comment on above: Performed By: #### B MP, PHOS, MG #### [facility] [address] [address] [address] Uziel Reid ALP [Catalytic activity/Vol] 130 U/L Critically high 38-126 [facility] Comment on above: Performed By: #### B MP, PHOS, MG #### [facility] [address] [address] [address] Uziel Reid ALT [Catalytic activity/Vol] 38 U/L Normal 21-72 [facility] Comment on above: Performed By: #### B MP, PHOS, MG #### [facility] [address] [address] [address] Uziel Reid Anion gap [Moles/Vol] 6.0 mmol/L Normal [facility] Comment on above: Performed By: #### B MP, PHOS, MG #### [facility] [address] [place] [address] Dr. Uziel Reid AST [Catalytic activity/Vol] 29 U/L Normal 17-59 [facility] Comment on above: Performed By: #### B MP, PHOS, MG #### [facility] [address] [place] [address] Dr. Uziel Reid Bilirubin [Mass/Vol] 0.8 mg/dL Normal 0.2-1.3 [facility] Comment on above: Performed By: #### B MP, PHOS, MG #### [facility] [address] [place] [address] Dr. Uziel Reid Calcium [Mass/Vol] 8.2 mg/dL Critically low 8.4-10.2 [facility] Comment on above: Performed By: #### B MP, PHOS, MG #### [facility] [address] [place] [address] Dr. Uziel Reid Chloride [Moles/Vol] 90 mmol/L Critically low 98-107 [facility] Comment on above: Performed By: #### B MP, PHOS, MG #### [facility] [address] [place] [address] Dr. Uziel Reid CO2 [Moles/Vol] 39.8 mmol/L Critically high 22.0-30.0 [facility] Comment on above: Performed By: #### B MP, PHOS, MG #### [facility] [address] [place] [address] Dr. Uziel Reid Creatinine [Mass/Vol] 1.12 mg/dL Normal 0.66-1.25 [facility] Comment on above: Performed By: #### B MP, PHOS, MG #### [facility] [address] [place] [address] Dr. Uziel Reid EGFR-AF CUBAN 76 mL/min/1.73m2 Normal >=60 [facility] Comment on above: Performed By: #### B MP, PHOS, MG #### [facility] [address] [place] [address] Dr. Uziel Reid EGFR-NON AF CUBAN 62 mL/min/1.73m2 Normal >=60 [facility] Comment on above: Performed By: #### B MP, PHOS, MG #### [facility] [address] [address] [address] Uziel Reid Globulin (S) [Mass/Vol] 4.7 g/dL Normal [facility] Comment on above: Performed By: #### B MP, PHOS, MG #### [facility] [address] [address] [address] Uziel Reid Glucose [Mass/Vol] 131 mg/dL Critically high 74-106 [facility] Comment on above: Performed By: #### B MP, PHOS, MG #### [facility] [address] [address] [address] Uziel Reid Potassium [Moles/Vol] 2.8 mmol/L Critically low 3.4-5.0 [facility] Comment on above: Result Comment: TEST REPEATED CRITICAL VALUE VERIFIED Performed By: #### B MP, PHOS, MG #### [facility] [address] [address] [address] Uziel Reid Protein [Mass/Vol] 6.6 g/dL Normal 6.1-8.2 [facility] Comment on above: Performed By: #### B MP, PHOS, MG #### [facility] [address] [address] [address] Uziel Reid Sodium [Moles/Vol] 132 mmol/L Critically low 137-145 [facility] Comment on above: Performed By: #### B MP, PHOS, MG #### [facility] [address] [address] [address] Uziel Reid Urea nitrogen [Mass/Vol] 19.0 mg/dL Normal 9.0-20.0 [facility] Comment on above: Performed By: #### B MP, PHOS, MG #### [facility] [address] [address] [address] Uziel Reid Urea nitrogen/Creatinine [Mass ratio] 17.0 mg/mg Normal [facility] Comment on above: Performed By: #### B MP, PHOS, MG #### [facility] [address] [place] [address] Dr. Uziel Reid TROPONIN, HIGH SENSITIVITYon 08-18-2021 HSTROP 7.6 pg/mL Normal 4.0-42.2 [facility] Comment on above: Result Comment: CUT- OFF POINTS HAVE BEEN ESTABLISHED BASED ON THE FOURTH UNIVERSAL DEFINITIONS OF MYOCARDIAL INFARCTION. THE UPPER REFERENCE LIMIT (URL) OF TROPONIN, DEFINED THE 99TH PERCENTILE OF cTnI DISTRIBUTION IN A REFERENCE POPULATION, HAS BEEN CONFIRMED THE DECISION THRESHOLD FOR VA DIAGNOSIS. Performed By: #### H STROPN #### [facility] [address] [place] [address] Dr. Uziel Reid MAGNESIUMon 08-10-2021 Magnesium [Mass/Vol] 2.2 mg/dL Normal 1.6-2.3 [facility] Comment on above: Performed By: #### B MP, PHOS, MG #### [facility] [address] [place] [address] Dr. Uziel Reid PHOSPHORUSon 08-10-2021 Phosphate [Mass/Vol] 3.0 mg/dL Normal 2.5-4.5 [facility] Comment on above: Performed By: #### B MP, PHOS, MG #### [facility] [address] [place] [address] Dr. Uziel Reid POINT OF CARE GLUCOSEon 08-01 Glucose [Mass/Vol] 135 mg/dL Critically high 74-106 [facility] Comment on above: Performed By: #### P OCGLUC #### [facility] [address] [place] [address] Dr. Uziel Reid PROF CHEM 8 (BAS METB)on Anion gap [Moles/Vol] 1.8 mmol/L Normal [facility] Comment on above: Performed By: #### B MP, PHOS, MG #### [facility] [address] [place] [address] Dr. Uziel Reid Calcium [Mass/Vol] 7.8 mg/dL Critically low 8.4-10.2 [facility] Comment on above: Performed By: #### B MP, PHOS, MG #### [facility] [address] [place] [address] Dr. Uziel Reid Chloride [Moles/Vol] 100 mmol/L Normal 98-107 [facility] Comment on above: Performed By: #### B MP, PHOS, MG #### [facility] [address] [place] [address] Dr. Uziel Reid CO2 [Moles/Vol] 37.0 mmol/L Critically high 22.0-30.0 [facility] Comment on above: Performed By: #### B MP, PHOS, MG #### [facility] [address] [place] [address] Dr. Uziel Reid Creatinine [Mass/Vol] 0.73 mg/dL Normal 0.66-1.25 [facility] Comment on above: Performed By: #### B MP, PHOS, MG #### [facility] [address] [place] [address] Dr. Uziel Reid EGFR-AF CUBAN >60 Normal >=60 [facility] Comment on above: Performed By: #### B MP, PHOS, MG #### [facility] [address] [place] [address] Dr. Uziel Reid EGFR-NON AF CUBAN >60 Normal >=60 [facility] Comment on above: Performed By: #### B MP, PHOS, MG #### [facility] [address] [place] [address] Dr. Uziel Reid Glucose [Mass/Vol] 136 mg/dL Critically high 74-106 [facility] Comment on above: Performed By: #### B MP, PHOS, MG #### [facility] [address] [place] [address] Dr. Uziel Reid Potassium [Moles/Vol] 3.8 mmol/L Normal 3.4-5.0 [facility] Comment on above: Performed By: #### B MP, PHOS, MG #### [facility] [address] [place] [address] Dr. Uziel Reid Sodium [Moles/Vol] 135 mmol/L Critically low 137-145 [facility] Comment on above: Performed By: #### B MP, PHOS, MG #### [facility] [address] [place] [address] Dr. Uziel Reid Urea nitrogen [Mass/Vol] 16.0 mg/dL Normal 9.0-20.0 [facility] Comment on above: Performed By: #### B MP, PHOS, MG #### [facility] [address] [place] [address] Dr. Uziel Reid Urea nitrogen/Creatinine [Mass ratio] 21.9 mg/mg Normal [facility] Comment on above: Performed By: #### B MP, PHOS, MG #### [facility] [address] [place] [address] Dr. Uziel Reid BNPon 08-09-2021 Natriuretic peptide B (Bld) [Mass/Vol] 301.0 pg/mL Normal <=1,800.0 [facility] Comment on above: Performed By: #### B MP, PHOS, MG #### [facility] [facility] [address] [place] [address] Dr. Uziel Reid MAGNESIUMon 08-09-2021 Magnesium [Mass/Vol] 2.4 mg/dL Critically high 1.6-2.3 [facility] Comment on above: Performed By: #### B MP, PHOS, MG #### [facility] [address] [place] [address] Dr. Uziel Reid PHOSPHORUSon 08-09-2021 Phosphate [Mass/Vol] 3.1 mg/dL Normal 2.5-4.5 [facility] Comment on above: Performed By: #### B MP, PHOS, MG #### [facility] [address] [place] [address] Dr. Uziel Reid POINT OF CARE GLUCOSEon Glucose [Mass/Vol] 158 mg/dL Critically high 74-106 [facility] Comment on above: Performed By: #### B MP, PHOS, MG #### [facility] [address] [place] [address] Dr. Uziel Reid Glucose [Mass/Vol] 188 mg/dL Critically high 74-106 [facility] Comment on above: Performed By: #### B MP, PHOS, MG #### [facility] [address] [address] [address] Uziel Reid PROF CHEM 8 (BAS METB)on Anion gap [Moles/Vol] 4.8 mmol/L Normal [facility] Comment on above: Performed By: #### B MP, PHOS, MG #### [facility] [address] [place] [address] Dr. Uziel Reid Calcium [Mass/Vol] 7.5 mg/dL Critically low 8.4-10.2 [facility] Comment on above: Performed By: #### B MP, PHOS, MG #### [facility] [address] [place] [address] Dr. Uziel Reid Chloride [Moles/Vol] 101 mmol/L Normal 98-107 [facility] Comment on above: Performed By: #### B MP, PHOS, MG #### [facility] [address] [place] [address] Dr. Uziel Reid CO2 [Moles/Vol] 36.9 mmol/L Critically high 22.0-30.0 [facility] Comment on above: Performed By: #### B MP, PHOS, MG #### [facility] [address] [place] [address] Dr. Uziel Reid Creatinine [Mass/Vol] 0.64 mg/dL Critically low 0.66-1.25 [facility] Comment on above: Performed By: #### B MP, PHOS, MG #### [facility] [address] [place] [address] Dr. Uziel Reid EGFR-AF CUBAN >60 Normal >=60 [facility] Comment on above: Performed By: #### B MP, PHOS, MG #### [facility] [address] [place] [address] Dr. Uziel Reid EGFR-NON AF CUBAN >60 Normal >=60 [facility] Comment on above: Performed By: #### B MP, PHOS, MG #### [facility] [address] [place] [address] Dr. Uziel Reid Glucose [Mass/Vol] 122 mg/dL Critically high 74-106 [facility] Comment on above: Performed By: #### B MP, PHOS, MG #### [facility] [address] [place] [address] Dr. Uziel Reid Potassium [Moles/Vol] 3.7 mmol/L Normal 3.4-5.0 [facility] Comment on above: Performed By: #### B MP, PHOS, MG #### [facility] [address] [place] [address] Dr. Uziel Reid Sodium [Moles/Vol] 139 mmol/L Normal 137-145 [facility] Comment on above: Performed By: #### B MP, PHOS, MG #### [facility] [address] [place] [address] Dr. Uziel Reid Urea nitrogen [Mass/Vol] 21.0 mg/dL Critically high 9.0-20.0 [facility] Comment on above: Performed By: #### B MP, PHOS, MG #### [facility] [address] [place] [address] Dr. Uziel Reid Urea nitrogen/Creatinine [Mass ratio] 32.8 mg/mg Normal [facility] Comment on above: Performed By: #### B MP, PHOS, MG #### [facility] [address] [place] [address] Dr. Uziel Reid XR CHEST 2 Von 08-09-2021 XR CHEST 2 V EXAM: XR CHEST 2 V, 08/09/2021 HISTORY: SHORTNESS OF BREATH COMPARISON: Prior x-ray from 08/06/2021 TECHNIQUE: PA and lateral view of the chest. FINDINGS: Low lung volumes. Bilateral basal atelectasis and small pleural effusions. Right upper extremity PICC with tip in the location of the superior vena cava. Interval removal of nasogastric tube. No other significant change compared to previous x-ray. IMPRESSION: Low lung volumes and bilateral basal atelectasis, with small pleural effusions. Electronically authenticated by: DOMINIC STEVE Date: 2021-08-09 15:11 Normal [facility] MAGNESIUMon 08-08-2021 Magnesium [Mass/Vol] 2.5 mg/dL Critically high 1.6-2.3 [facility] Comment on above: Performed By: #### B MP, PHOS, MG #### [facility] [address] [place] [address] Dr. Uziel Reid PHOSPHORUSon 08-08-2021 Phosphate [Mass/Vol] 2.4 mg/dL Critically low 2.5-4.5 [facility] Comment on above: Performed By: #### B MP, PHOS, MG #### [facility] [address] [place] [address] Dr. Uziel Reid PROF CHEM 8 (BAS METB)on Anion gap [Moles/Vol] 5.7 mmol/L Normal [facility] Comment on above: Performed By: #### B MP, PHOS, MG #### [facility] [address] [place] [address] Dr. Uziel Reid Calcium [Mass/Vol] 7.3 mg/dL Critically low 8.4-10.2 [facility] Comment on above: Performed By: #### B MP, PHOS, MG #### [facility] [address] [place] [address] Dr. Uziel Reid Chloride [Moles/Vol] 102 mmol/L Normal 98-107 [facility] Comment on above: Performed By: #### B MP, PHOS, MG #### [facility] [address] [place] [address] Dr. Uziel Reid CO2 [Moles/Vol] 34.6 mmol/L Critically high 22.0-30.0 [facility] Comment on above: Performed By: #### B MP, PHOS, MG #### [facility] [address] [place] [address] Dr. Uziel Reid Creatinine [Mass/Vol] 0.64 mg/dL Critically low 0.66-1.25 [facility] Comment on above: Performed By: #### B MP, PHOS, MG #### [facility] [address] [address] [address] Uziel Reid EGFR-AF CUBAN >60 Normal >=60 [facility] Comment on above: Performed By: #### B MP, PHOS, MG #### [facility] [address] [address] [address] Uziel Reid EGFR-NON AF CUBAN >60 Normal >=60 [facility] Comment on above: Performed By: #### B MP, PHOS, MG #### [facility] [address] [address] [address] Uziel Reid Glucose [Mass/Vol] 259 mg/dL Critically high 74-106 [facility] Comment on above: Performed By: #### B MP, PHOS, MG #### [facility] [address] [place] [address] Dr. Uziel Reid Potassium [Moles/Vol] 3.3 mmol/L Critically low 3.4-5.0 [facility] Comment on above: Performed By: #### B MP, PHOS, MG #### [facility] [address] [address] [address] Uziel Reid Sodium [Moles/Vol] 139 mmol/L Normal 137-145 [facility] Comment on above: Performed By: #### B MP, PHOS, MG #### [facility] [address] [address] [address] Uziel Reid Urea nitrogen [Mass/Vol] 19.0 mg/dL Normal 9.0-20.0 [facility] Comment on above: Performed By: #### B MP, PHOS, MG #### [facility] [address] [address] [address] Uziel Reid Urea nitrogen/Creatinine [Mass ratio] 29.7 mg/mg Normal [facility] Comment on above: Performed By: #### B MP, PHOS, MG #### [facility] [address] [place] [address] Dr. Uziel Reid MAGNESIUMon 08-07-2021 Magnesium [Mass/Vol] 2.6 mg/dL Critically high 1.6-2.3 [facility] Comment on above: Performed By: #### P OCGLUC #### [facility] [address] [address] [address] Uziel Reid PHOSPHORUSon 08-07-2021 Phosphate [Mass/Vol] 2.3 mg/dL Critically low 2.5-4.5 [facility] Comment on above: Performed By: #### B MP, PHOS, MG #### [facility] [address] [place] [address] Dr. Uziel Reid POINT OF CARE GLUCOSEon Glucose [Mass/Vol] 191 mg/dL Critically high 74-106 [facility] Comment on above: Performed By: #### B MP, PHOS, MG #### [facility] [address] [place] [address] Dr. Uziel Reid PROF CHEM 8 (BAS METB)on Anion gap [Moles/Vol] 1.8 mmol/L Normal [facility] Comment on above: Performed By: #### P OCGLUC #### [facility] [address] [address] [address] Uziel Reid Calcium [Mass/Vol] 7.4 mg/dL Critically low 8.4-10.2 [facility] Comment on above: Performed By: #### P OCGLUC #### [facility] [address] [place] [address] Dr. Uziel Reid Chloride [Moles/Vol] 106 mmol/L Normal 98-107 [facility] Comment on above: Performed By: #### P OCGLUC #### [facility] [address] [place] [address] Dr. Uziel Reid CO2 [Moles/Vol] 38.3 mmol/L Critically high 22.0-30.0 [facility] Comment on above: Performed By: #### P OCGLUC #### [facility] [address] [place] [address] Dr. Uziel Reid Creatinine [Mass/Vol] 0.65 mg/dL Critically low 0.66-1.25 [facility] Comment on above: Performed By: #### P OCGLUC #### [facility] [address] [address] [address] Uziel Reid EGFR-AF CUBAN >60 Normal >=60 [facility] Comment on above: Performed By: #### P OCGLUC #### [facility] [address] [address] [address] Uziel Reid EGFR-NON AF CUBAN >60 Normal >=60 [facility] Comment on above: Performed By: #### P OCGLUC #### [facility] [address] [address] [address] Uziel Reid Glucose [Mass/Vol] 208 mg/dL Critically high 74-106 [facility] Comment on above: Performed By: #### P OCGLUC #### [facility] [address] [address] [address] Uziel Reid Potassium [Moles/Vol] 3.1 mmol/L Critically low 3.4-5.0 [facility] Comment on above: Performed By: #### P OCGLUC #### [facility] [address] [address] [address] Uziel Reid Sodium [Moles/Vol] 143 mmol/L Normal 137-145 [facility] Comment on above: Performed By: #### P OCGLUC #### [facility] [address] [address] [address] Uziel Reid Urea nitrogen [Mass/Vol] 19.0 mg/dL Normal 9.0-20.0 [facility] Comment on above: Performed By: #### P OCGLUC #### [facility] [address] [address] [address] Uziel Reid Urea nitrogen/Creatinine [Mass ratio] 29.2 mg/mg Normal [facility] Comment on above: Performed By: #### P OCGLUC #### [facility] [address] [address] [address] Uziel Reid CBC AUTO DIFFon 08-06-2021 BASO # 0.0 103/ul Normal 0.0-0.1 [facility] Comment on above: Performed By: #### B MP, PHOS, MG #### [facility] [address] [place] [address] Dr. Uziel Reid Basophils/100 WBC (Bld) 0.2 % Normal 0.2-2.0 [facility] Comment on above: Performed By: #### B MP, PHOS, MG #### [facility] [address] [place] [address] Dr. Uziel Reid EO # 0.2 103/ul Normal 0.0-0.7 [facility] Comment on above: Performed By: #### B MP, PHOS, MG #### [facility] [address] [place] [address] Dr. Uziel Reid Eosinophils/100 WBC (Bld) 1.3 % Normal 0.9-7.0 [facility] Comment on above: Performed By: #### B MP, PHOS, MG #### [facility] [address] [place] [address] Dr. Uziel Reid Erythrocyte distribution width (RBC) [Ratio] 13.5 % Normal 11.0-15.0 [facility] Comment on above: Performed By: #### B MP, PHOS, MG #### [facility] [address] [place] [address] Dr. Uziel Reid Hematocrit (Bld) [Volume fraction] 38.6 % Critically low 42.0-54.0 [facility] Comment on above: Performed By: #### B MP, PHOS, MG #### [facility] [address] [place] [address] Dr. Uziel Reid Hemoglobin (Bld) [Mass/Vol] 12.2 g/dL Critically low 14.0-18.0 [facility] Comment on above: Performed By: #### B MP, PHOS, MG #### [facility] [address] [place] [address] Dr. Uziel Reid IG # 0.35 10e3/ul Critically high 0.00-0.03 [facility] Comment on above: Performed By: #### B MP, PHOS, MG #### [facility] [address] [place] [address] Dr. Uziel Reid IG % 2.2 % Critically high 0.0-0.[address] [facility] Comment on above: Performed By: #### B MP, PHOS, MG #### [facility] [address] [place] [address] Dr. Uziel Reid LYMPH # 1.0 103/ul Critically low 1.2-3.8 [facility] Comment on above: Performed By: #### B MP, PHOS, MG #### [facility] [address] [place] [address] Dr. Uziel Reid Lymphocytes/100 WBC (Bld) 6.1 % Critically low 20.5-60.0 [facility] Comment on above: Performed By: #### B MP, PHOS, MG #### [facility] [address] [place] [address] Dr. Uziel Reid MANUAL DIFF REQ NO Normal [facility] Comment on above: Performed By: #### B MP, PHOS, MG #### [facility] [address] [place] [address] Dr. Uziel Reid MCH (RBC) [Entitic mass] 30.1 pg Normal 25.9-34.0 [facility] Comment on above: Performed By: #### B MP, PHOS, MG #### [facility] [address] [place] [address] Dr. Uziel Reid MCHC (RBC) [Mass/Vol] 31.6 g/dL Normal 29.9-35.2 [facility] Comment on above: Performed By: #### B MP, PHOS, MG #### [facility] [address] [place] [address] Dr. Uziel Reid MCV (RBC) [Entitic vol] 95.3 fL Critically high 80.0-94.0 [facility] Comment on above: Performed By: #### B MP, PHOS, MG #### [facility] [address] [place] [address] Dr. Uziel Reid MONO # 1.2 103/ul Critically high 0.3-0.[address] [facility] Comment on above: Performed By: #### B MP, PHOS, MG #### [facility] [address] [address] [address] Uziel Reid Monocytes/100 WBC (Bld) 7.6 % Normal 1.7-12.0 [facility] Comment on above: Performed By: #### B MP, PHOS, MG #### [facility] [address] [place] [address] Dr. Uziel Reid NEUT # 13.3 103/ul Critically high 1.4-6.5 [facility] Comment on above: Performed By: #### B MP, PHOS, MG #### [facility] [address] [place] [address] Dr. Uziel Reid Neutrophils/100 WBC (Bld) 82.6 % Critically high 43.0-75.0 [facility] Comment on above: Performed By: #### B MP, PHOS, MG #### [facility] [address] [place] [address] Dr. Uziel Reid Platelet mean volume (Bld) [Entitic vol] 10.0 fL Normal 9.5-13.5 [facility] Comment on above: Performed By: #### B MP, PHOS, MG #### [facility] [address] [place] [address] Dr. Uziel Reid PLT 206 103/ul Normal 150-450 [facility] Comment on above: Performed By: #### B MP, PHOS, MG #### [facility] [address] [place] [address] Dr. Uziel Reid RBC 4.05 106/ul Critically low 4.70-6.10 [facility] Comment on above: Performed By: #### B MP, PHOS, MG #### [facility] [address] [place] [address] Dr. Uziel Reid WBC 16.2 103/ul Critically high 4.0-11.0 [facility] Comment on above: Performed By: #### B MP, PHOS, MG #### [facility] [address] [place] [address] Dr. Uziel Reid POINT OF CARE GLUCOSEon Glucose [Mass/Vol] 202 mg/dL Critically high 74-106 [facility] Comment on above: Performed By: #### B MP, PHOS, MG #### [facility] [address] [place] [address] Dr. Uziel Reid Glucose [Mass/Vol] 192 mg/dL Critically high 74-106 [facility] Comment on above: Performed By: #### P OCGLUC #### [facility] [address] [address] [address] Uziel Reid Glucose [Mass/Vol] 234 mg/dL Critically high 74-106 [facility] Comment on above: Performed By: #### P OCGLUC #### [facility] [address] [place] [address] Dr. Uziel Reid PROF 14(COMP METB)on 022 Albumin [Mass/Vol] 1.8 g/dL Critically low 3.5-5.0 [facility] Comment on above: Performed By: #### B MP, PHOS, MG #### [facility] [address] [place] [address] Dr. Uziel Reid Albumin/Globulin [Mass ratio] 0.5 {ratio} [facility] Comment on above: Performed By: #### B MP, PHOS, MG #### [facility] [address] [place] [address] Dr. Uziel Reid ALP [Catalytic activity/Vol] 63 U/L Normal 38-126 [facility] Comment on above: Performed By: #### B MP, PHOS, MG #### [facility] [address] [place] [address] Dr. Uziel Reid ALT [Catalytic activity/Vol] 20 U/L Critically low 21-72 [facility] Comment on above: Performed By: #### B MP, PHOS, MG #### [facility] [address] [place] [address] Dr. Uziel Reid Anion gap [Moles/Vol] 5.5 mmol/L Normal [facility] Comment on above: Performed By: #### B MP, PHOS, MG #### [facility] [address] [address] [address] Uziel Reid AST [Catalytic activity/Vol] 17 U/L Normal 17-59 [facility] Comment on above: Performed By: #### B MP, PHOS, MG #### [facility] [address] [address] [address] Uziel Reid Bilirubin [Mass/Vol] 0.4 mg/dL Normal 0.2-1.3 [facility] Comment on above: Performed By: #### B MP, PHOS, MG #### [facility] [address] [address] [address] Uziel Reid Calcium [Mass/Vol] 7.3 mg/dL Critically low 8.4-10.2 [facility] Comment on above: Performed By: #### B MP, PHOS, MG #### [facility] [address] [place] [address] Dr. Uziel Reid Chloride [Moles/Vol] 107 mmol/L Normal 98-107 [facility] Comment on above: Performed By: #### B MP, PHOS, MG #### [facility] [address] [address] [address] Uziel Reid CO2 [Moles/Vol] 34.7 mmol/L Critically high 22.0-30.0 [facility] Comment on above: Performed By: #### B MP, PHOS, MG #### [facility] [address] [address] [address] Uziel Reid Creatinine [Mass/Vol] 0.64 mg/dL Critically low 0.66-1.25 [facility] Comment on above: Performed By: #### B MP, PHOS, MG #### [facility] [address] [address] [address] Uziel Reid EGFR-AF CUBAN >60 Normal >=60 [facility] Comment on above: Performed By: #### B MP, PHOS, MG #### [facility] [address] [address] [address] Uziel Reid EGFR-NON AF CUBAN >60 Normal >=60 [facility] Comment on above: Performed By: #### B MP, PHOS, MG #### [facility] [address] [address] [address] Uziel Reid Globulin (S) [Mass/Vol] 3.3 g/dL Normal [facility] Comment on above: Performed By: #### B MP, PHOS, MG #### [facility] [address] [address] [address] Uziel Reid Glucose [Mass/Vol] 187 mg/dL Critically high 74-106 [facility] Comment on above: Performed By: #### B MP, PHOS, MG #### [facility] [address] [address] [address] Uziel Reid Potassium [Moles/Vol] 3.2 mmol/L Critically low 3.4-5.0 [facility] Comment on above: Performed By: #### B MP, PHOS, MG #### [facility] [address] [place] [address] Dr. Uziel Reid Protein [Mass/Vol] 5.1 g/dL Critically low 6.1-8.2 [facility] Comment on above: Performed By: #### B MP, PHOS, MG #### [facility] [address] [place] [address] Dr. Uziel Reid Sodium [Moles/Vol] 144 mmol/L Normal 137-145 [facility] Comment on above: Performed By: #### B MP, PHOS, MG #### [facility] [address] [address] [address] Uziel Reid Urea nitrogen [Mass/Vol] 20.0 mg/dL Normal 9.0-20.0 [facility] Comment on above: Performed By: #### B MP, PHOS, MG #### [facility] [address] [place] [address] Dr. Uziel Reid Urea nitrogen/Creatinine [Mass ratio] 31.2 mg/mg Normal [facility] Comment on above: Performed By: #### B MP, PHOS, MG #### [facility] [address] [place] [address] Dr. Uziel Reid XR CHEST 1 Von 08-06-2021 XR CHEST 1 V EXAMINATION: XR CHES T 1 V, , 08/06/2021 9:09 AM EST INDICATION: Acute hypoxemic respiratory failure HISTORY: Ordering Provider Reason for Exam: Technologist Note: Additional: COMPARISON: Chest x-ray, 08/05/2021. TECHNIQUE: Chest x-ray: One view. FINDINGS: Single view of the chest was obtained. Enteric tube extends into the stomach. There is a PICC line from the right arm extending into the right atrium. Low lung volumes. Heart size appears normal. No significant pleural effusion. There is atelectasis at both lung bases. No pneumothorax. No pulmonary edema. IMPRESSION: 1. Stable chest x-ray. 2. Lung volumes are low. Atelectasis is seen at both lung bases. 3. No pulmonary edema. No pneumothorax. Electronically authenticated by: EDWARD WARD Date: 2021-08-06 10:15 Normal [facility] POINT OF CARE GLUCOSEon 0 Glucose [Mass/Vol] 90 mg/dL Normal 74-106 [facility] Comment on above: Performed By: #### B MP, PHOS, MG #### [facility] [address] [address] [address] Uziel Reid Glucose [Mass/Vol] 127 mg/dL Critically high 74-106 [facility] Comment on above: Performed By: #### P OCGLUC #### [facility] [address] [address] [address] Uziel Reid XR CHEST 1 Von 08-05-2021 XR CHEST 1 V EXAMINATION: XR CHES T 1 V, , 08/05/2021 8:36 PM EST INDICATION: Peripherally inserted central venous catheter in situ HISTORY: Ordering Provider Reason for Exam: Technologist Note: Additional: COMPARISON: Chest x-ray of 08/02/2021. TECHNIQUE: Chest x-ray: One view. FINDINGS: No pneumothorax, pleural effusion or focal airspace consolidation. Heart is normal in size. Stable prominent mediastinal silhouettes is seen. Right upper extremity PICC line is seen in place with the tip projecting over the expected location of the cavoatrial junction. Nasogastric tube is also seen in place, which distal tip is not included on this examination, but is seen entering the stomach. Mild left lung base atelectasis is seen. Bony thorax is unremarkable. IMPRESSION: Right upper extremity PICC line is seen in place with the tip projecting over the expected location of the cavoatrial junction. Nasogastric tube is also seen in place, which distal tip is not included on this examination, but is seen entering the stomach. No obvious pneumothorax is seen. Mild left lung base atelectasis is seen. Electronically authenticated by: TIFFANI RENTERIA Date: 2021-08-05 21:04 Normal [facility] CBC AUTO DIFFon 08-04-2021 BASO # 0.1 103/ul Normal 0.0-0.1 [facility] Comment on above: Performed By: #### P OCGLUC #### [facility] [address] [address] [address] Uziel Reid Basophils/100 WBC (Bld) 0.5 % Normal 0.2-2.0 [facility] Comment on above: Performed By: #### P OCGLUC #### [facility] [address] [address] [address] Uziel Reid EO # 0.1 103/ul Normal 0.0-0.7 [facility] Comment on above: Performed By: #### P OCGLUC #### [facility] [address] [address] [address] Uziel Reid Eosinophils/100 WBC (Bld) 0.4 % Critically low 0.9-7.0 [facility] Comment on above: Performed By: #### P OCGLUC #### [facility] [address] [address] [address] Uziel Reid Erythrocyte distribution width (RBC) [Ratio] 13.4 % Normal 11.0-15.0 [facility] Comment on above: Performed By: #### P OCGLUC #### [facility] [address] [address] [address] Uziel Reid Hematocrit (Bld) [Volume fraction] 41.1 % Critically low 42.0-54.0 [facility] Comment on above: Performed By: #### P OCGLUC #### [facility] [address] [address] [address] Uziel Reid Hemoglobin (Bld) [Mass/Vol] 13.1 g/dL Critically low 14.0-18.0 [facility] Comment on above: Performed By: #### P OCGLUC #### [facility] [address] [address] [address] Uziel Reid IG # 0.20 10e3/ul Critically high 0.00-0.03 [facility] Comment on above: Performed By: #### P OCGLUC #### [facility] [address] [address] [address] Uziel Reid IG % 1.5 % Critically high 0.0-0.5 [facility] Comment on above: Performed By: #### P OCGLUC #### [facility] [address] [place] [address] Dr. Uziel Reid LYMPH # 0.9 103/ul Critically low 1.2-3.8 [facility] Comment on above: Performed By: #### P OCGLUC #### [facility] [address] [place] [address] Dr. Uziel Reid Lymphocytes/100 WBC (Bld) 6.5 % Critically low 20.5-60.0 [facility] Comment on above: Performed By: #### P OCGLUC #### [facility] [address] [place] [address] Dr. Uziel Reid MANUAL DIFF REQ NO Normal [facility] Comment on above: Performed By: #### P OCGLUC #### [facility] [address] [address] [address] Uziel Reid MCH (RBC) [Entitic mass] 29.9 pg Normal 25.9-34.0 [facility] Comment on above: Performed By: #### P OCGLUC #### [facility] [address] [address] [address] Uziel Reid MCHC (RBC) [Mass/Vol] 31.9 g/dL Normal 29.9-35.2 [facility] Comment on above: Performed By: #### P OCGLUC #### [facility] [address] [address] [address] Uziel Reid MCV (RBC) [Entitic vol] 93.8 fL Normal 80.0-94.0 [facility] Comment on above: Performed By: #### P OCGLUC #### [facility] [address] [address] [address] Uziel Reid MONO # 1.5 103/ul Critically high 0.3-0.[address] [facility] Comment on above: Performed By: #### P OCGLUC #### [facility] [address] [address] [address] Uziel Reid Monocytes/100 WBC (Bld) 11.2 % Normal 1.7-12.0 [facility] Comment on above: Performed By: #### P OCGLUC #### [facility] [address] [place] [address] Dr. Uziel Reid NEUT # 10.6 103/ul Critically high 1.4-6.5 [facility] Comment on above: Performed By: #### P OCGLUC #### [facility] [address] [address] [address] Uziel Reid Neutrophils/100 WBC (Bld) 79.9 % Critically high 43.0-75.0 [facility] Comment on above: Performed By: #### P OCGLUC #### [facility] [address] [place] [address] Dr. Uziel Reid Platelet mean volume (Bld) [Entitic vol] 10.3 fL Normal 9.5-13.5 [facility] Comment on above: Performed By: #### P OCGLUC #### [facility] [address] [address] [address] Uziel Reid PLT 224 103/ul Normal 150-450 [facility] Comment on above: Performed By: #### P OCGLUC #### [facility] [address] [address] [address] Uziel Reid RBC 4.38 106/ul Critically low 4.70-6.[address] [facility] Comment on above: Performed By: #### P OCGLUC #### [facility] [address] [address] [address] Uziel Reid WBC 13.3 103/ul Critically high 4.0-11.0 [facility] Comment on above: Performed By: #### P OCGLUC #### [facility] [address] [address] [address] Uziel Reid POINT OF CARE GLUCOSEon Glucose [Mass/Vol] 142 mg/dL Critically high 74-106 [facility] Comment on above: Performed By: #### C BCMAN #### [facility] [address] [address] [address] Uziel Reid Glucose [Mass/Vol] 119 mg/dL Critically high 74-106 [facility] Comment on above: Performed By: #### H STROPN #### [facility] [address] [place] [address] Dr. Uziel Reid PROF CHEM 8 (BAS METB)on Anion gap [Moles/Vol] 10.9 mmol/L Normal [facility] Comment on above: Performed By: #### P OCGLUC #### [facility] [address] [address] [address] Uziel Reid Calcium [Mass/Vol] 7.6 mg/dL Critically low 8.4-10.2 [facility] Comment on above: Performed By: #### P OCGLUC #### [facility] [address] [address] [address] Uziel Reid Chloride [Moles/Vol] 106 mmol/L Normal 98-107 [facility] Comment on above: Performed By: #### P OCGLUC #### [facility] [address] [address] [address] Uziel Reid CO2 [Moles/Vol] 23.3 mmol/L Normal 22.0-30.0 [facility] Comment on above: Performed By: #### P OCGLUC #### [facility] [address] [place] [address] Dr. Uziel Reid Creatinine [Mass/Vol] 0.58 mg/dL Critically low 0.66-1.25 [facility] Comment on above: Performed By: #### P OCGLUC #### [facility] [address] [address] [address] Uziel Reid EGFR-AF CUBAN >60 Normal >=60 [facility] Comment on above: Performed By: #### P OCGLUC #### [facility] [address] [address] [address] Uziel Reid EGFR-NON AF CUBAN >60 Normal >=60 [facility] Comment on above: Performed By: #### P OCGLUC #### [facility] [address] [address] [address] Uziel Reid Glucose [Mass/Vol] 128 mg/dL Critically high 74-106 [facility] Comment on above: Performed By: #### P OCGLUC #### [facility] [address] [address] [address] Uziel Reid Potassium [Moles/Vol] 4.2 mmol/L Normal 3.4-5.0 [facility] Comment on above: Performed By: #### P OCGLUC #### [facility] [address] [address] [address] Uziel Reid Sodium [Moles/Vol] 136 mmol/L Critically low 137-145 [facility] Comment on above: Performed By: #### P OCGLUC #### [facility] [address] [address] [address] Uziel Reid Urea nitrogen [Mass/Vol] 32.0 mg/dL Critically high 9.0-20.0 [facility] Comment on above: Performed By: #### P OCGLUC #### [facility] [address] [address] [address] Uziel Reid Urea nitrogen/Creatinine [Mass ratio] 55.2 mg/mg Normal [facility] Comment on above: Performed By: #### P OCGLUC #### [facility] [address] [address] [address] Uziel Reid XR KUB 1 VIEWon 08-04-2021 XR KUB 1 VIEW EXAMINATION: XR KUB 1 VIEW HISTORY: Swollen abdomen COMPARISON: 08/02/2021 FINDINGS: BOWEL GAS PATTERN: Persistent dilation of small bowel loops measuring up to 5 cm in diameter however there is been interval progression of oral contrast now within pelvic small bowel loops and throughout the entire colon extending to the level of the rectum. There is gaseous distention of the colon measuring up to 8.8 cm. CALCIFICATIONS: None significant. OTHER: Negative. No abnormal gaseous collections. IMPRESSION: Dilated small and large bowel with progression of oral contrast now seen throughout the colon and rectum. This favors ileus over a partial bowel obstruction Electronically authenticated by: ZHANE DUCKWORTH Date: 2021-08-04 15:49 Normal [facility] POINT OF CARE GLUCOSEon -0 Glucose [Mass/Vol] 132 mg/dL Critically high 74-106 [facility] Comment on above: Performed By: #### C FERDINAND #### [facility] [address] [place] [address] Dr. Uziel Reid Glucose [Mass/Vol] 122 mg/dL Critically high -106 [facility] Comment on above: Performed By: #### B LIA TALBOT MG #### [facility] [address] [place] [address] Dr. Uziel Reid Glucose [Mass/Vol] 124 mg/dL Critically high [facility] Comment on above: Performed By: #### B LIA TALBOT MG #### [facility] [address] [place] [address] Dr. Uziel Reid POINT OF CARE GLUCOSEon Glucose [Mass/Vol] 127 mg/dL Critically high -106 [facility] Comment on above: Performed By: #### B LIA TALBOT, MG #### [facility] [address] [place] [address] Dr. Uziel Reid XR KUB 1 VIEWon 08-02-2021 XR KUB 1 VIEW EXAMINATION: XR CHES T 2 V, XR KUB 1 VIEW HISTORY: SHORTNESS OF BREATH COMPARISON: XR chest 07/30/2021, KUB 08/02/2021 9:36 AM FINDINGS: LUNGS: Underexpanded lungs with trace amount stranding within left lung base. Mild opacities within one of the posterior costophrenic angles, likely on left. MEDIASTINUM: Dilated aortic arch, approximately 4.2 cm. BOWEL GAS PATTERN: Oral contrast has progressed through small bowel into the ascending colon. Small bowel remains dilated, but less than seen on images obtained yesterday. There is still oral contrast within the stomach. FREE AIR: None. CALCIFICATIONS: None significant. BONES: No fracture or visible bone lesion. OTHER: Negative. IMPRESSION: 1. Low lung volume examination with mild left basilar atelectasis versus infiltrates. 2. No bowel obstruction. Persistent dilated small bowel, but improved; suspect persistent postoperative ileus. Electronically authenticated by: ROBERT BASILIO Date: 2021-08-02 15:21 Normal [facility] XR KUB 1 VIEW KUB; 08/02/2021 8:48 A M EST Clinical History:Swollen abdomen Comparison: 08/01/2021 apparent . Apparently patient had 2 bowel movements this morning. However, a moderate amount of contrast remains within multiple loops of dilated small bowel. Today, there is a small amount of contrast in what is likely the right colon. There is some air in the transverse colon. IMPRESSION: 1. As above. Electronically authenticated by: GERARDO NEELY Date: 2021-08-02 12:31 Normal [facility] CBC W MANUAL DIFFon 08-01-19 22 ATYPICAL LYMPH # Normal [facility] Comment on above: Performed By: #### B YEISON TALBOTS MG #### [facility] [address] [place] [address] Dr. Uziel Reid ATYPICAL LYMPH % Normal [facility] Comment on above: Performed By: #### B DAHIANA PHOS, MG #### [facility] [address] [address] [address] Uziel Reid BAND # 0.7 103/ul Critically high 0.0-0.[address] [facility] Comment on above: Performed By: #### B YEISON TALBOTS MG #### [facility] [address] [address] [address] Uziel Reid BAND % 9 % Critically high 0-[address] [facility] Comment on above: Performed By: #### B DAHIANA PHOS, MG #### [facility] [address] [address] [address] Uziel Reid BASOM # 0.00 103/ul Normal 0.00-0.10 [facility] Comment on above: Performed By: #### B MP, PHOS, MG #### [facility] [address] [address] [address] Uziel Reid BASOM % 0.0 % Critically low 0.2-2.0 [facility] Comment on above: Performed By: #### B MP, PHOS, MG #### [facility] [address] [address] [address] Uziel Reid BLAST # Normal [facility] Comment on above: Performed By: #### B MP, PHOS, MG #### [facility] [address] [address] [address] Uziel Reid BLAST % Normal [facility] Comment on above: Performed By: #### B MP, PHOS, MG #### [facility] [address] [address] [address] Uziel Reid CORRECTED WBC Normal 4.0-11.0 [facility] Comment on above: Performed By: #### B MP, PHOS, MG #### [facility] [address] [address] [address] Uziel Reid EOS # 0.00 103/ul Normal 0.00-0.70 [facility] Comment on above: Performed By: #### B MP, PHOS, MG #### [facility] [address] [address] [address] Uziel Reid EOS% 0.0 % Critically low 0.9-7.0 [facility] Comment on above: Performed By: #### B MP, PHOS, MG #### [facility] [address] [address] [address] Uziel Reid HCT 38.1 % Critically low 42.0-54.0 [facility] Comment on above: Performed By: #### B MP, PHOS, MG #### [facility] [address] [address] [address] Uziel Reid HGB 12.2 g/dl Critically low 14.0-18.0 [facility] Comment on above: Performed By: #### B MP, PHOS, MG #### [facility] [address] [address] [address] Uziel Reid LYMPHM # 0.66 103/ul Critically low 1.20-3.80 [facility] Comment on above: Performed By: #### B MP, PHOS, MG #### [facility] [address] [address] [address] Uziel Reid LYMPHM% 9.0 % Critically low 20.5-60.0 [facility] Comment on above: Performed By: #### B MP, PHOS, MG #### [facility] [address] [place] [address] Dr. Uziel Reid MCH 29.8 pg Normal 25.9-34.0 [facility] Comment on above: Performed By: #### B MP, PHOS, MG #### [facility] [address] [place] [address] Dr. Uziel Reid MCHC 32.0 g/dl Normal 29.9-35.2 [facility] Comment on above: Performed By: #### B MP, PHOS, MG #### [facility] [address] [place] [address] Dr. Uziel Reid MCV 92.9 fL Normal 80.0-94.0 [facility] Comment on above: Performed By: #### B MP, PHOS, MG #### [facility] [address] [place] [address] Dr. Uziel Reid METAMYELOCYTE # Normal [facility] Comment on above: Performed By: #### B MP, PHOS, MG #### [facility] [address] [place] [address] Dr. Uziel Reid METAMYELOCYTE % Normal [facility] Comment on above: Performed By: #### B MP, PHOS, MG #### [facility] [address] [place] [address] Dr. Uziel Reid MONOM# 1.02 103/ul Critically high 0.30-0.80 [facility] Comment on above: Performed By: #### B MP, PHOS, MG #### [facility] [address] [address] [address] Uziel Reid MONOM% 14.0 % Critically high 1.7-12.0 [facility] Comment on above: Performed By: #### B MP, PHOS, MG #### [facility] [address] [address] [address] Uziel Reid MPV 9.9 fL Normal 9.5-13.5 [facility] Comment on above: Performed By: #### B MP, PHOS, MG #### [facility] [address] [address] [address] Uziel Reid MYELOCYTE # Normal [facility] Comment on above: Performed By: #### B MP, PHOS, MG #### [facility] [address] [place] [address] Dr. Uziel Reid MYELOCYTE % Normal [facility] Comment on above: Performed By: #### B MP, PHOS, MG #### [facility] [address] [address] [address] Uziel Reid NRBC Normal [facility] Comment on above: Performed By: #### B MP, PHOS, MG #### [facility] [address] [place] [address] Dr. Uziel Reid PLT 237 103/ul Normal 150-450 [facility] Comment on above: Performed By: #### B MP, PHOS, MG #### [facility] [address] [address] [address] Uziel Reid RBC 4.10 106/ul Critically low 4.70-6.[address] [facility] Comment on above: Performed By: #### B MP, PHOS, MG #### [facility] [address] [place] [address] Dr. Uziel Reid RDW 13.5 % Normal 11.0-15.0 [facility] Comment on above: Performed By: #### B MP, PHOS, MG #### [facility] [address] [place] [address] Dr. Uziel Reid SEG # 4.96 103/ul Normal 1.40-6.50 [facility] Comment on above: Performed By: #### B YEISON TALBOTS, MG #### [facility] [address] [place] [address] Dr. Uziel Reid SEG % 68.0 % Normal 43.0-75.0 [facility] Comment on above: Performed By: #### B YEISON TALBOTS, MG #### [facility] [address] [place] [address] Dr. Uziel Reid WBC 7.3 103/ul Normal 4.0-11.0 [facility] Comment on above: Performed By: #### B LIA TALBOT MG #### [facility] [address] [place] [address] Dr. Uziel Reid POINT OF CARE GLUCOSEon Glucose [Mass/Vol] 158 mg/dL Critically high 74-106 [facility] Comment on above: Performed By: #### B YEISON TALBOTS MG #### [facility] [address] [place] [address] Dr. Uziel Reid PROF 14(COMP METB)on 022 Albumin [Mass/Vol] 2.4 g/dL Critically low 3.5-5.0 [facility] Comment on above: Performed By: #### C FERDINAND #### [facility] [address] [place] [address] Dr. Uziel Reid Albumin/Globulin [Mass ratio] 0.5 {ratio} Normal [facility] Comment on above: Performed By: #### C FERDINAND #### [facility] [address] [place] [address] Dr. Uziel Reid ALP [Catalytic activity/Vol] 84 U/L Normal 38-126 [facility] Comment on above: Performed By: #### C FERDINAND #### [facility] [address] [place] [address] Dr. Uziel Reid ALT [Catalytic activity/Vol] 26 U/L Normal 21-72 [facility] Comment on above: Performed By: #### C FERDINAND #### [facility] [address] [address] [address] Uziel Reid Anion gap [Moles/Vol] 9.8 mmol/L Normal [facility] Comment on above: Performed By: #### C BCMAN #### [facility] [address] [address] [address] Uziel Reid AST [Catalytic activity/Vol] 17 U/L Normal 17-59 [facility] Comment on above: Performed By: #### C BCSARIKA #### [facility] [address] [address] [address] Uziel Reid Bilirubin [Mass/Vol] 0.9 mg/dL Normal 0.2-1.3 [facility] Comment on above: Performed By: #### C FERDINAND #### [facility] [address] [address] [address] Uziel Reid Calcium [Mass/Vol] 8.9 mg/dL Normal 8.4-10.2 [facility] Comment on above: Performed By: #### C FERDINAND #### [facility] [address] [address] [address] Uziel Reid Chloride [Moles/Vol] 94 mmol/L Critically low 98-107 [facility] Comment on above: Performed By: #### C FERDINAND #### [facility] [address] [address] [address] Uziel Reid CO2 [Moles/Vol] 30.9 mmol/L Critically high 22.0-30.0 [facility] Comment on above: Performed By: #### C BCSARIKA #### [facility] [address] [address] [address] Uziel Reid Creatinine [Mass/Vol] 1.21 mg/dL Normal 0.66-1.25 [facility] Comment on above: Performed By: #### C BCSARIKA #### [facility] [address] [address] [address] Uziel Reid EGFR-AF CUBAN >60 Normal >=60 [facility] Comment on above: Performed By: #### C BCSARIKA #### [facility] [address] [address] [address] Uziel Reid EGFR-NON AF CUBAN 57 mL/min/1.73m2 Critically low >=60 [facility] Comment on above: Performed By: #### C FERDINAND #### [facility] [address] [address] [address] Uziel Reid Globulin (S) [Mass/Vol] 4.5 g/dL Normal [facility] Comment on above: Performed By: #### C FERDINAND #### [facility] [address] [address] [address] Uziel Reid Glucose [Mass/Vol] 166 mg/dL Critically high 74-106 [facility] Comment on above: Performed By: #### C FERDINAND #### [facility] [address] [address] [address] Uziel Reid Potassium [Moles/Vol] 3.7 mmol/L Normal 3.4-5.0 [facility] Comment on above: Performed By: #### C FERDINAND #### [facility] [address] [address] [address] Uziel Reid Protein [Mass/Vol] 6.9 g/dL Normal 6.1-8.2 [facility] Comment on above: Performed By: #### C FERDINAND #### [facility] [address] [address] [address] Uziel Reid Sodium [Moles/Vol] 131 mmol/L Critically low 137-145 [facility] Comment on above: Performed By: #### C FERDINAND #### [facility] [address] [address] [address] Uziel Reid Urea nitrogen [Mass/Vol] 72.0 mg/dL Critically high 9.0-20.0 [facility] Comment on above: Performed By: #### C FERDINAND #### [facility] [id number] Uziel Reid Urea nitrogen/Creatinine [Mass ratio] 59.5 mg/mg Normal [facility] Comment on above: Performed By: #### C FERDINAND #### [facility] [id number] Uziel Reid XR KUB 1 VIEWon 08-01-2021 XR KUB 1 VIEW EXAMINATION: XR KUB 1 VIEW HISTORY: Swollen abdomen COMPARISON: Small bowel follow-through study 08/01/2021 FINDINGS: BOWEL GAS PATTERN: Numerous distended loops of small bowel within the abdomen and pelvis with oral contrast still confined to the jejunum and proximal ileum. IMPRESSION: 1. No appreciable further progression of contrast since prior study. Contrast is present within the proximal ileum at 5 1/2 hours since ingestion. Oral contrast remains within the stomach. Dilated loops of air-filled small bowel or distal suggests ileus rather than small bowel obstruction. Continued follow-up recommended. Electronically authenticated by: ROBERT BASILIO Date: 2021-08-01 20:28 Normal [facility] XR KUB 1 VIEW EXAMINATION: XR KUB 1 VIEW HISTORY: Swollen abdomen ; postop appendectomy COMPARISON: XR abdomen 07/30/2021 FINDINGS: BOWEL GAS PATTERN: Multiple air distended loops of small bowel up to 5.8 cm. Air-filled stomach. No appreciable free air. CALCIFICATIONS: None significant. OTHER: Negative. No abnormal gaseous collections. IMPRESSION: 1. Air-filled distended bowel consistent with postoperative ileus. Electronically authenticated by: ROBERT BASILIO Date: 2021-08-01 13:26 Normal [facility] XR SMALL BOWEL FOLLOW THOUGH on 08-01-2021 XR SMALL BOWEL FOLLOW THOUGH EXAMINATION: XR SMALL BOWEL FOLLOW THOUGH HISTORY: Swollen abdomen COMPARISON: No relevant comparison available. FLUOROSCOPY TIME: Fluoro time - none. TECHNIQUE: Small bowel series was performed in the usual manner. No lubricating specialist abdominal radiograph was performed. Standard level fluoroscopic mode of operation utilized. FINDINGS: DUODENUM: Distended up to 4.8 cm. JEJUNUM: Distended up to 4.9 cm; normal mucosal pattern. ILEUM: Contrast is just into proximal ileum or small bowel remains dilated. There are more distal loops that are dilated and not yet contrast filled. OTHER: Negative. IMPRESSION: 1. Abnormally dilated small bowel with only mild progression of oral contrast through the bowel; findings suggest ileus. Follow-up KUB radiograph in 2 hours, and possibly 4 hours, is recommended to document any further progression. Electronically authenticated by: ROBERT BASILIO Date: 2021-08-01 17:36 Normal [facility] POINT OF CARE GLUCOSEon 12-3 Glucose [Mass/Vol] 178 mg/dL Critically high 74-106 [facility] Comment on above: Performed By: #### C BCMAN #### [facility] [address] [place] [address] Dr. Uziel Reid Glucose [Mass/Vol] 146 mg/dL Critically high 74-106 [facility] Comment on above: Performed By: #### P OCGLUC #### [facility] [address] [place] [address] Dr. Uziel Reid BNPon 07-30-2021 Natriuretic peptide B (Bld) [Mass/Vol] 800.0 pg/mL Normal <=1,800.0 [facility] Comment on above: Performed By: #### B MP, PHOS, MG #### [facility] [address] [place] [address] Dr. Uziel Reid CBC AUTO DIFFon 07-30-2021 BASO # 0.0 103/ul Normal 0.0-0.1 [facility] Comment on above: Performed By: #### B MP, PHOS, MG #### [facility] [address] [place] [address] Dr. Uziel Reid Basophils/100 WBC (Bld) 0.1 % Critically low 0.2-2.0 [facility] Comment on above: Performed By: #### B MP, PHOS, MG #### [facility] [address] [place] [address] Dr. Uziel Reid EO # 0.0 103/ul Normal 0.0-0.7 [facility] Comment on above: Performed By: #### B MP, PHOS, MG #### [facility] [address] [place] [address] Dr. Uziel Reid Eosinophils/100 WBC (Bld) 0.1 % Critically low 0.9-7.0 [facility] Comment on above: Performed By: #### B MP, PHOS, MG #### [facility] [address] [place] [address] Dr. Uziel Reid Erythrocyte distribution width (RBC) [Ratio] 13.8 % Normal 11.0-15.0 [facility] Comment on above: Performed By: #### B MP, PHOS, MG #### [facility] [address] [place] [address] Dr. Uziel Reid Hematocrit (Bld) [Volume fraction] 35.1 % Critically low 42.0-54.0 [facility] Comment on above: Performed By: #### B MP, PHOS, MG #### [facility] [address] [place] [address] Dr. Uziel Reid Hemoglobin (Bld) [Mass/Vol] 10.8 g/dL Critically low 14.0-18.0 [facility] Comment on above: Performed By: #### B MP, PHOS, MG #### [facility] [address] [place] [address] Dr. Uziel Reid IG # 0.15 10e3/ul Critically high 0.00-0.03 [facility] Comment on above: Performed By: #### B MP, PHOS, MG #### [facility] [address] [place] [address] Dr. Uziel Reid IG % 0.9 % Critically high 0.0-0.5 [facility] Comment on above: Performed By: #### B MP, PHOS, MG #### [facility] [address] [place] [address] Dr. Uziel Reid LYMPH # 0.8 103/ul Critically low 1.2-3.8 [facility] Comment on above: Performed By: #### B MP, PHOS, MG #### [facility] [address] [place] [address] Dr. Uziel Reid Lymphocytes/100 WBC (Bld) 5.2 % Critically low 20.5-60.0 [facility] Comment on above: Performed By: #### B MP, PHOS, MG #### [facility] [address] [place] [address] Dr. Uziel Reid MANUAL DIFF REQ NO Normal [facility] Comment on above: Performed By: #### B MP, PHOS, MG #### [facility] [address] [place] [address] Dr. Uziel Reid MCH (RBC) [Entitic mass] 30.1 pg Normal 25.9-34.0 [facility] Comment on above: Performed By: #### B MP, PHOS, MG #### [facility] [address] [place] [address] Dr. Uziel Reid MCHC (RBC) [Mass/Vol] 30.8 g/dL Normal 29.9-35.2 [facility] Comment on above: Performed By: #### B MP, PHOS, MG #### [facility] [address] [place] [address] Dr. Uziel Reid MCV (RBC) [Entitic vol] 97.8 fL Critically high 80.0-94.0 [facility] Comment on above: Performed By: #### B MP, PHOS, MG #### [facility] [address] [place] [address] Dr. Uziel Reid MONO # 1.2 103/ul Critically high 0.3-0.[address] [facility] Comment on above: Performed By: #### B MP, PHOS, MG #### [facility] [address] [place] [address] Dr. Uziel Reid Monocytes/100 WBC (Bld) 7.5 % Normal 1.7-12.0 [facility] Comment on above: Performed By: #### B MP, PHOS, MG #### [facility] [address] [place] [address] Dr. Uziel Reid NEUT # 14.0 103/ul Critically high 1.4-6.5 [facility] Comment on above: Performed By: #### B MP, PHOS, MG #### [facility] [address] [place] [address] Dr. Uziel Reid Neutrophils/100 WBC (Bld) 86.2 % Critically high 43.0-75.0 [facility] Comment on above: Performed By: #### B MP, PHOS, MG #### [facility] [address] [place] [address] Dr. Uziel Reid Platelet mean volume (Bld) [Entitic vol] 10.7 fL Normal 9.5-13.5 [facility] Comment on above: Performed By: #### B MP, PHOS, MG #### [facility] [address] [address] [address] Uziel Reid PLT 165 103/ul Normal 150-450 [facility] Comment on above: Performed By: #### B MP, PHOS, MG #### [facility] [address] [address] [address] Uziel Reid RBC 3.59 106/ul Critically low 4.70-6.10 [facility] Comment on above: Performed By: #### B MP, PHOS, MG #### [facility] [address] [address] [address] Uziel Reid WBC 16.2 103/ul Critically high 4.0-11.0 [facility] Comment on above: Performed By: #### B MP, PHOS, MG #### [facility] [address] [address] [address] Uziel Reid PROF CHEM 8 (BAS METB)on Anion gap [Moles/Vol] 8.9 mmol/L Normal [facility] Comment on above: Performed By: #### B MP, PHOS, MG #### [facility] [address] [place] [address] Dr. Uziel Reid Calcium [Mass/Vol] 7.4 mg/dL Critically low 8.4-10.2 [facility] Comment on above: Performed By: #### B MP, PHOS, MG #### [facility] [address] [address] [address] Uziel Reid Chloride [Moles/Vol] 96 mmol/L Critically low 98-107 [facility] Comment on above: Performed By: #### B MP, PHOS, MG #### [facility] [address] [address] [address] Uziel Reid CO2 [Moles/Vol] 30.0 mmol/L Normal 22.0-30.0 [facility] Comment on above: Performed By: #### B MP, PHOS, MG #### [facility] [address] [address] [address] Uziel Reid Creatinine [Mass/Vol] 1.12 mg/dL Normal 0.66-1.25 [facility] Comment on above: Performed By: #### B MP, PHOS, MG #### [facility] [address] [address] [address] Uziel Reid EGFR-AF CUBAN >60 Normal >=60 [facility] Comment on above: Performed By: #### B MP, PHOS, MG #### [facility] [address] [address] [address] Uziel Reid EGFR-NON AF CUBAN >60 Normal >=60 [facility] Comment on above: Performed By: #### B MP, PHOS, MG #### [facility] [address] [place] [address] Dr. Uziel Reid Glucose [Mass/Vol] 125 mg/dL Critically high 74-106 [facility] Comment on above: Performed By: #### B MP, PHOS, MG #### [facility] [address] [place] [address] Dr. Uziel Reid Potassium [Moles/Vol] 3.9 mmol/L Normal 3.4-5.0 [facility] Comment on above: Performed By: #### B MP, PHOS, MG #### [facility] [address] [place] [address] Dr. Uziel Reid Sodium [Moles/Vol] 131 mmol/L Critically low 137-145 [facility] Comment on above: Performed By: #### B MP, PHOS, MG #### [facility] [address] [place] [address] Dr. Uziel Reid Urea nitrogen [Mass/Vol] 37.0 mg/dL Critically high 9.0-20.0 [facility] Comment on above: Performed By: #### B MP, PHOS, MG #### [facility] [address] [place] [address] Dr. Uziel Reid Urea nitrogen/Creatinine [Mass ratio] 33.0 mg/mg Normal [facility] Comment on above: Performed By: #### B LIA TALBOT MG #### [facility] [address] [address] [address] Uziel Reid XR ABD FLAT_UPon 07-30-2021 XR ABD FLAT_UP EXAMINATION: XR ABD FLAT_UP HISTORY: SHORTNESS OF BREATH COMPARISON: 07/28/2021 CT exam FINDINGS: BOWEL GAS PATTERN: Moderate distention of small bowel loops up to 5.2 cm. There is identified in the colon extending to the mid descending colon. Moderate scattered air-fluid levels. FREE AIR: None. CALCIFICATIONS: None significant. BONES: No fracture or visible bone lesion. Moderate degenerative changes OTHER: Negative. IMPRESSION: Dilated bowel loops with scattered air-fluid levels. Ileus favored over distal bowel obstruction. Electronically authenticated by: ZHANE DUCKWORTH Date: 2021-07-30 09:08 Normal [facility] XR CHEST 2 Von 07-30-2021 XR CHEST 2 V EXAM: XR CHEST 2 V HISTORY: SHORTNESS OF BREATH COMPARISON: 07/28/2021 TECHNIQUE: PA and lateral FINDINGS: LUNGS: Low lung volumes. VASCULATURE: No increased pulmonary vasculature. PLEURA: No pneumothorax. Blunting of the posterior costophrenic angle suggests small bilateral pleural effusions or scarring CARDIAC: No cardiomegaly or cardiac silhouette abnormality. MEDIASTINUM: No visible mass or adenopathy. BONES: No fracture or visible bone lesion. OTHER: Negative. IMPRESSION: No new focal parenchymal infiltrates Suspected small bilateral pleural effusions Electronically authenticated by: ZHANE DUCKWORTH Date: 2021-07-30 09:05 Normal [facility] POINT OF CARE GLUCOSEon 07-02 Glucose [Mass/Vol] 144 mg/dL Critically high 74-106 [facility] Comment on above: Performed By: #### C FERDINAND #### [facility] [address] [place], [place] [address] Dr. Uziel Reid Glucose [Mass/Vol] 147 mg/dL Critically high 74-106 [facility] Comment on above: Performed By: #### B LIA TALBOT MG #### [facility] [address] [place], [place] [address] Dr. Uziel Reid AMYLASEon 07-28-2021 AMYL <30 Critically low 31-110 [facility] Comment on above: Performed By: #### H STROPN #### [facility] [address] [place] [address] Dr. Uziel Reid CBC AUTO DIFFon 07-28-2021 BASO # 0.1 103/ul Normal 0.0-0.1 [facility] Comment on above: Performed By: #### B MP, PHOS, MG #### [facility] [address] [place] [address] Dr. Uziel Reid Basophils/100 WBC (Bld) 0.6 % Normal 0.2-2.0 [facility] Comment on above: Performed By: #### B MP, PHOS, MG #### [facility] [address] [place] [address] Dr. Uziel Reid EO # 0.2 103/ul Normal 0.0-0.7 [facility] Comment on above: Performed By: #### B MP, PHOS, MG #### [facility] [address] [place] [address] Dr. Uziel Reid Eosinophils/100 WBC (Bld) 1.8 % Normal 0.9-7.0 [facility] Comment on above: Performed By: #### B MP, PHOS, MG #### [facility] [address] [place] [address] Dr. Uziel Reid Erythrocyte distribution width (RBC) [Ratio] 13.0 % Normal 11.0-15.0 [facility] Comment on above: Performed By: #### B MP, PHOS, MG #### [facility] [address] [place] [address] Dr. Uziel Reid Hematocrit (Bld) [Volume fraction] 38.9 % Critically low 42.0-54.0 [facility] Comment on above: Performed By: #### B MP, PHOS, MG #### [facility] [address] [place] [address] Dr. Uziel Reid Hemoglobin (Bld) [Mass/Vol] 12.6 g/dL Critically low 14.0-18.0 [facility] Comment on above: Performed By: #### B MP, PHOS, MG #### [facility] [address] [place] [address] Dr. Uziel Reid IG # 0.05 10e3/ul Critically high 0.00-0.03 [facility] Comment on above: Performed By: #### B MP, PHOS, MG #### [facility] [address] [place] [address] Dr. Uziel Reid IG % 0.4 % Normal 0.0-0.5 [facility] Comment on above: Performed By: #### B MP, PHOS, MG #### [facility] [address] [place] [address] Dr. Uziel Reid LYMPH # 1.2 103/ul Normal 1.2-3.8 [facility] Comment on above: Performed By: #### B MP, PHOS, MG #### [facility] [address] [place] [address] Dr. Uziel Reid Lymphocytes/100 WBC (Bld) 10.0 % Critically low 20.5-60.0 [facility] Comment on above: Performed By: #### B MP, PHOS, MG #### [facility] [address] [place] [address] Dr. Uziel Reid MANUAL DIFF REQ NO Normal [facility] Comment on above: Performed By: #### B MP, PHOS, MG #### [facility] [address] [place] [address] Dr. Uziel Reid MCH (RBC) [Entitic mass] 30.3 pg Normal 25.9-34.0 [facility] Comment on above: Performed By: #### B MP, PHOS, MG #### [facility] [address] [place] [address] Dr. Uziel Reid MCHC (RBC) [Mass/Vol] 32.4 g/dL Normal 29.9-35.2 [facility] Comment on above: Performed By: #### B MP, PHOS, MG #### [facility] [address] [place] [address] Dr. Uziel Reid MCV (RBC) [Entitic vol] 93.5 fL Normal 80.0-94.0 [facility] Comment on above: Performed By: #### B MP, PHOS, MG #### [facility] [address] [place] [address] Dr. Uziel Reid MONO # 1.0 103/ul Critically high 0.3-0.[address] [facility] Comment on above: Performed By: #### B MP, PHOS, MG #### [facility] [address] [place] [address] Dr. Uziel Reid Monocytes/100 WBC (Bld) 8.6 % Normal 1.7-12.0 [facility] Comment on above: Performed By: #### B MP, PHOS, MG #### [facility] [address] [place] [address] Dr. Uziel Reid NEUT # 9.2 103/ul Critically high 1.4-6.[address] [facility] Comment on above: Performed By: #### B MP, PHOS, MG #### [facility] [address] [place] [address] Dr. Uziel Reid Neutrophils/100 WBC (Bld) 78.6 % Critically high 43.0-75.0 [facility] Comment on above: Performed By: #### B MP, PHOS, MG #### [facility] [address] [place] [address] Dr. Uziel Reid Platelet mean volume (Bld) [Entitic vol] 10.9 fL Normal 9.5-13.5 [facility] Comment on above: Performed By: #### B MP, PHOS, MG #### [facility] [address] [place] [address] Dr. Uziel Reid PLT 159 103/ul Normal 150-450 [facility] Comment on above: Performed By: #### B MP, PHOS, MG #### [facility] [address] [place] [address] Dr. Uziel Reid RBC 4.16 106/ul Critically low 4.70-6.[address] [facility] Comment on above: Performed By: #### B DAHIANA, PHOS, MG #### [facility] [address] [place], [place] [address] Dr. Uziel Reid WBC 11.8 103/ul Critically high 4.0-11.0 [facility] Comment on above: Performed By: #### B MP, PHOS, MG #### [facility] [address] [place], [place] [address] ABD/PELVIS WO CONon 07-28 CT ABD/PELVIS WO CON EXAMINATION: CT ABD/PELVIS WO CON, 07/28/2021 6:18 AM EST HISTORY: UNSPECIFIED ABDOMINAL PAIN , right upper quadrant pain, nausea COMPARISON: None. TECHNIQUE: CT scan of the abdomen and pelvis was performed without IV contrast. CT dose reduction technique was used, including Automated Exposure Control. FINDINGS: LUNG BASES: Bibasilar infiltrates with presence of air bronchograms. Dilation of the thoracic aorta measuring up to 4.5 cm in diameter. Moderate coronary atherosclerosis LIVER: No enlargement, atrophy, abnormal density, or significant focal lesion. BILIARY: No dilatation or calcification. PANCREAS: Moderate diffuse atrophy SPLEEN: Punctate calcifications ADRENALS: No mass or enlargement. KIDNEYS: No mass, obstruction, or calcification. BOWEL/MESENTERY: Enlargement of the mid to distal appendix which measures 1.4 cm in diameter. Periappendiceal mesenteric stranding with a small amount of fluid in the right paracolic gutter. Colonic diverticulosis without diverticulitis. Nonobstructive bowel gas pattern. AORTA/VASCULAR: No aortic aneurysm. Displaced calcifications in the distal abdominal aorta could represent dissection or extensive mural thrombus. RETROPERITONEUM: No mass or adenopathy. LYMPH NODES: No adenopathy. URINARY BLADDER: No visible focal wall thickening, lesion, or calculus. PELVIC ORGANS: Normal sized prostate gland with minimal calcifications ABDOMINAL WALL: No mass or hernia. BONES: No bony lesion or fracture. OTHER: Negative. IMPRESSION: Acute appendicitis Bibasilar infiltrates, atelectasis favored over pneumonia Thoracic aortic aneurysm measuring 4.5 cm in diameter Suspected dissection small segment distal abdominal aorta Electronically authenticated by: ZHANE DUCKWORTH Date: 2021-07-28 07:18 Normal [facility] CULTURE BLOODon 07-28-2021 Microscopic examination of blood, culture Culture Observations: NO GROWTH AT 5 DAYS. Normal [facility] Comment on above: Performed By: #### H STROPN #### [facility] [address] [address] [address] Uziel Reid Covid-19 PCR [facility]on 07-02 SARS-CoV-2 (COVID-19) RNA ALFONSO+probe Ql (Unsp spec) Not detected Normal NOT DETECTED [facility] Comment on above: Result Comment: This test is not yet approved or cleared by the [place] FDA. When there are no FDA-approved or cleared tests available, and other criteria are met, FDA can make tests available under an emergency access mechanism called an Emergency Use Authorization (EUA). The EUA for this test is supported by the Cardiovascular Surgeon of Health and Human Service's (HHS's) declaration that circumstances exist to justify the emergency use of in vitro diagnostics for the detection and/or diagnosis of the virus that causes COVID-19. This EUA will remain in effect (meaning this test can be used) for the duration of the COVID-19 declaration justifying emergency of IVDs, unless it is terminated or revoked by FDA (after which the test may no longer be used). When diagnostic testing is negative, the possibility of a false negative should be considered in the context of a patient's recent exposures and the presence of clinical signs and symptoms consistent with SARS-CoV-2. Performed By: #### C BCMAN #### [facility] [address] [place] [address] Dr. Uziel Reid LACTATE/LACTIC ACIDon 2020 Lactate [Moles/Vol] 1.2 mmol/L Normal 0.7-2.0 [facility] Comment on above: Performed By: #### B MP, PHOS, MG #### [facility] [address] [address] [address] Uziel Reid LIPASEon 07-28-2021 Lipase [Catalytic activity/Vol] 32.0 U/L Normal 23.0-300.0 [facility] Comment on above: Performed By: #### H STROPN #### [facility] [address] [place] [address] Dr. Uziel Reid PROF 14(COMP METB)on 021 Albumin [Mass/Vol] 3.1 g/dL Critically low 3.5-5.0 [facility] Comment on above: Performed By: #### C FERDINAND #### [facility] [address] [place] [address] Dr. Uziel Reid Albumin/Globulin [Mass ratio] 0.8 {ratio} Normal [facility] Comment on above: Performed By: #### C FERDINAND #### [facility] [address] [place] [address] Dr. Uziel Reid ALP [Catalytic activity/Vol] 116 U/L Normal 38-126 [facility] Comment on above: Performed By: #### C FERDINAND #### [facility] [address] [place] [address] Dr. Uziel Reid ALT [Catalytic activity/Vol] 36 U/L Normal 21-72 [facility] Comment on above: Performed By: #### C FERDINAND #### [facility] [address] [place] [address] Dr. Uziel Reid Anion gap [Moles/Vol] 11.3 mmol/L Normal [facility] Comment on above: Performed By: #### C FERDINAND #### [facility] [address] [place] [address] Dr. Uziel Reid AST [Catalytic activity/Vol] 25 U/L Normal 17-59 [facility] Comment on above: Performed By: #### C FERDINAND #### [facility] [address] [place] [address] Dr. Uziel Reid Bilirubin [Mass/Vol] 0.9 mg/dL Normal 0.2-1.3 [facility] Comment on above: Performed By: #### C FERDINAND #### [facility] [address] [place] [address] Dr. Uziel Reid Calcium [Mass/Vol] 8.4 mg/dL Normal 8.4-10.2 [facility] Comment on above: Performed By: #### C FERDINAND #### [facility] [address] [place] [address] Dr. Uziel Reid Chloride [Moles/Vol] 97 mmol/L Critically low 98-107 [facility] Comment on above: Performed By: #### C BCMAN #### [facility] [address] [place] [address] Dr. Uziel Reid CO2 [Moles/Vol] 29.4 mmol/L Normal 22.0-30.0 [facility] Comment on above: Performed By: #### C BCMAN #### [facility] [address] [address] [address] Uziel Reid Creatinine [Mass/Vol] 0.86 mg/dL Normal 0.66-1.25 [facility] Comment on above: Performed By: #### C BCSARIKA #### [facility] [address] [place] [address] Dr. Uziel Reid EGFR-AF CUBAN >60 Normal >=60 [facility] Comment on above: Performed By: #### C BCSARIKA #### [facility] [address] [place] [address] Dr. Uziel Reid EGFR-NON AF CUBAN >60 Normal >=60 [facility] Comment on above: Performed By: #### C BCMAN #### [facility] [address] [address] [address] Uziel Reid Globulin (S) [Mass/Vol] 4.0 g/dL Normal [facility] Comment on above: Performed By: #### C BCMAN #### [facility] [address] [address] [address] Uziel Reid Glucose [Mass/Vol] 181 mg/dL Critically high 74-106 [facility] Comment on above: Performed By: #### C BCMAN #### [facility] [address] [place] [address] Dr. Uziel Reid Potassium [Moles/Vol] 3.7 mmol/L Normal 3.4-5.0 [facility] Comment on above: Performed By: #### C BCMAN #### [facility] [address] [place] [address] Dr. Uziel Reid Protein [Mass/Vol] 7.1 g/dL Normal 6.1-8.2 [facility] Comment on above: Performed By: #### C FERDINAND #### [facility] [address] [address] [address] Uziel Reid Sodium [Moles/Vol] 134 mmol/L Critically low 137-145 [facility] Comment on above: Performed By: #### C FERDINAND #### [facility] [address] [address] [address] Uziel Reid Urea nitrogen [Mass/Vol] 18.0 mg/dL Normal 9.0-20.0 [facility] Comment on above: Performed By: #### C FERDINAND #### [facility] [address] [address] [address] Uziel Reid Urea nitrogen/Creatinine [Mass ratio] 20.9 mg/mg Normal [facility] Comment on above: Performed By: #### C FERDINAND #### [facility] [address] [place] [address] Dr. Uziel Reid XR CHEST 1 Von 07-28-2021 XR CHEST 1 V XR CHEST 1 V 07/28/2021 5:27 AM EST Indication: SHORTNESS OF BREATH Technique: Portable AP radiograph of the chest was obtained. Comparison: None. Findings: The lungs are hypoinflated with atelectatic changes present. No acute rib fractures, pneumothorax or mediastinal shift. No consolidation, edema, or effusion. Heart is normal in size and contour. Impression: Hypoinflated lungs without acute findings. Electronically authenticated by: SUPA STONE Date: 2021-07-28 06:45 Normal [facility] GLYCOHEMOGLOBIN A1Con 2020 ADA RECOMMENDATION ADA THERAPEUTIC TARGET 6.0 - 7.0 ACTION SUGGESTED > 7.0 Normal [facility] Comment on above: Performed By: #### B MP PHOS, MG #### [facility] [address] [address] [address] Uziel Reid Glucose [Mass/Vol] 137 mg/dL Normal [facility] Comment on above: Performed By: #### B MP, PHOS, MG #### [facility] [address] [address] [address] Uziel Reid HbA1c (Bld) [Mass fraction] 6.4 % Critically high <=6.0 [facility] Comment on above: Performed By: #### B LIA TALBOT MG #### [facility] [address] [place] [address] Dr. Uziel Reid Vital Signs Date Time Vital Sign Value Performing Clinician Facility 09-12-2023 13:34-0500 Body height 181.6 cm Annette Aichcarolinaz [employer]LINDER PRESS OPERATOR Work Phone: [facility] 09-12-2023 13:34-0500 Body mass index (BMI) [Ratio] 25.44 kg/m2 Annette Aichholz [employer]LIND[employer] PR[employer] OPERATOR Work Phone: [facility] 09-12-2023 13:34-0500 Body temperature 96.6 [degF] Annette Aichcarolinaz CYLINDER PRESS OPERATOR Work Phone: [facility] 09-12-2023 13:34-0500 Body weight 83.92 kg Annette Aichholz CYLINDER PRESS OPERATOR Work Phone: [facility] 09-12-2023 13:34-0500 Diastolic blood pressure 76 mm[Hg] Annette Aichholz CYLINDER PRESS OPERATOR Work Phone: [facility] 09-12-2023 13:34-0500 Heart rate 83 /min Annette Aichholz CYLINDER PRESS OPERATOR Work Phone: [facility] 09-12-2023 13:34-0500 Respiratory rate 18 /min Annette Aichholz [employer]LINDER PRESS OPERATOR Work Phone: [facility] 09-12-2023 13:34-0500 SaO2% (BldA) [Mass fraction] 94 % Annette Aichholz CYLINDER PRESS OPERATOR Work Phone: [facility] 09-12-2023 13:34-0500 Systolic blood pressure 138 mm[Hg] Annette Aichholz CYLINDER PRESS OPERATOR Work Phone: [facility] 08-27-2022 13:35-0500 Body height 180.34 cm Keira Haile Other [employer] Other 08-27-2022 13:35-0500 Body mass index (BMI) [Ratio] 27 kg/m2 Keira Haile Other [employer] Other 08-27-2022 13:35-0500 Body temperature 97.9 [degF] Keira Haile Other [employer] Other 08-27-2022 13:35-0500 Body weight 87.82 kg Keira Haile Other [employer] Other 08-27-2022 13:35-0500 Diastolic blood pressure 77 mm[Hg] Keira Haile Other [employer] Other 08-27-2022 13:35-0500 Respiratory rate 18 /min Keira Haile Other [employer] Other 08-27-2022 13:35-0500 SaO2% (BldA) [Mass fraction] 97 % Keira Haile Other [employer] Other 08-27-2022 13:35-0500 Systolic blood pressure 156 mm[Hg] Keira Haile Other [employer] Other 12-08-2021 09:55-0400 Body height 172.72 cm Ailyn Baez Work Phone: -[facility] 170 Work Phone: 12-08-2021 09:55-0400 Body mass index (BMI) [Ratio] 29.19 kg/m2 Ailyn [facility]aez [facility] Phone: [facility] 170 Work Phone: 12-08-2021 09:55-0400 Body surface area Derived from formula 2.01 m2 Ailyn J Ayad Work Phone: [facility] Work Phone: 12-08-2021 09:55-0400 Body temperature 97.3 [degF] Ailyn Kapadia Ayad Work Phone: [facility] Work Phone: 12-08-2021 09:55-0400 Body weight 87.09 kg Ailyn J Ayad Work Phone: [facility] Work Phone: 12-08-2021 09:55-0400 Diastolic blood pressure 69 mm[Hg] Ailyn J Ayad Work Phone: [facility] Work Phone: 12-08-2021 09:55-0400 Heart rate 63 /min Ailyn J Ayad Work Phone: [facility] [facility] 170 Work Phone: 12-08-2021 09:55-0400 Respiratory rate 16 /min Ailyn J Ayad Work Phone: [facility] Work Phone: 12-08-2021 09:55-0400 SaO2% (BldA) [Mass fraction] 93 % Ailyn J Ayad Work Phone: [facility] Work Phone: 12-08-2021 09:55-0400 Systolic blood pressure 133 mm[Hg] Ailyn Baez Work Phone: [facility] [facility] 170 Work Phone: 10-14-2021 11:17-0400 Body height 172.72 cm Ailyn Baez Work Phone: [facility] Work Phone: 10-14-2021 11:17-0400 Body mass index (BMI) [Ratio] 29.04 kg/m2 Ailyn Baez Work Phone: -[facility] 170 Work Phone: 10-14-2021 11:17-0400 Body surface area Derived from formula 2 m2 Ailyn Baez Work Phone: [facility] 170 Work Phone: 10-14-2021 11:17-0400 Body temperature 97.2 [degF] Ailyn Baez Work Phone: [facility] 170 Work Phone: 10-14-2021 11:17-0400 Body weight 86.64 kg Ailyn Baez Work Phone: [facility] 170 Work Phone: 10-14-2021 11:17-0400 Diastolic blood pressure 70 mm[Hg] Ailyn Baez Work Phone: [facility] 170 Work Phone: 10-14-2021 11:17-0400 Heart rate 73 /min Ailyn Baez Work Phone: -[facility] 170 Work Phone: 10-14-2021 11:17-0400 Respiratory rate 16 /min Ailyn Baez Work Phone: -[facility] 170 Work Phone: 10-14-2021 11:17-0400 SaO2% (BldA) [Mass fraction] 92 % Ailyn Baez Work Phone: -[facility] 170 Work Phone: 10-14-2021 11:17-0400 Systolic blood pressure 120 mm[Hg] Ailyn J Ayad Work Phone: [facility] 170 Work Phone: 10-07-2021 13:28-0500 Body height 172.72 cm [facility] J [facility] Work Phone: 10-07-2021 13:28-0500 Body mass index (BMI) [Ratio] 29.21 kg/m2 Ailyn Kang Baez [facility]: [facility] Work Phone: 10-07-2021 13:28-0500 Body surface area Derived from formula 2.01 m2 [facility] Work Phone: 10-07-2021 13:28-0500 Body temperature 95.7 [degF] Ailyn J Ayad [facility] Work Phone: 10-07-2021 13:28-0500 Body weight 87.15 kg Ailyn J Ayad [facility] Work Phone: 10-07-2021 13:28-0500 Diastolic blood pressure 78 mm[Hg] [facility] Work Phone: 10-07-2021 13:28-0500 Heart rate 67 /min [facility] Bae[facility] Work Phone: 10-07-2021 13:28-0500 Respiratory rate 16 /min Ailyn Baez Work Phone: [facility] Work Phone: 10-07-2021 13:28-0500 SaO2% (BldA) [Mass fraction] 94 % Ailyn Baez Work Phone: [facility] Work Phone: 10-07-2021 13:28-0500 Systolic blood pressure 138 mm[Hg] Ailyn Baez Work Phone: [facility] Work Phone: 09-09-2021 11:34-0500 Body height 172.72 cm Ailyn Baez Work Phone: [facility] Work Phone: 09-09-2021 11:34-0500 Body mass index (BMI) [Ratio] 30.71 kg/m2 Ailyn Baez Work Phone: [facility] Work Phone: 09-09-2021 11:34-0500 Body surface area Derived from formula 2.05 m2 Ailyn Baez Work Phone: [facility] Work Phone: 09-09-2021 11:34-0500 Body temperature 97.5 [degF] Ailyn Baez Work Phone: [facility] Work Phone: 09-09-2021 11:34-0500 Body weight 91.63 kg Ailyn Baez Work Phone: [facility] Work Phone: 09-09-2021 11:34-0500 Diastolic blood pressure 80 mm[Hg] Ailyn Baez Work Phone: [facility] Work Phone: 09-09-2021 11:34-0500 Heart rate 94 /min Ailyn Kapadia Ayad Work Phone: [facility] Work Phone: 09-09-2021 11:34-0500 Respiratory rate 16 /min Ailyn Kapadia Ayad Work Phone: [facility] Work Phone: 09-09-2021 11:34-0500 SaO2% (BldA) [Mass fraction] 90 % Ailyn J Ayad Work Phone: [facility] Work Phone: 09-09-2021 11:34-0500 Systolic blood pressure 130 mm[Hg] Ailyn J Ayad Work Phone: [facility] Work Phone: Encounters Encounter Date Encounter Type Care Provider Facility Start: 09-21-2023 End: 09-21-2023 ambulatory ANNALEE HERNÁNDEZ Not Available Start: 09-12-2023 End: 09-12-2023 ambulatory ANNETTE WHITFIELD Not Available Start: 09-12-2023 Bamboo flowsheet Annette Whitfield [employer]LINDER PRESS OPERATOR Work Phone: [facility] Start: 09-12-2023 Bamboo flowsheet Annette Whitfield [employer]LINDER PRESS OPERATOR Work Phone: [facility] Start: 09-12-2023 End: 09-12-2023 Office outpatient visit 25 minutes Annette Whitfield [employer]LINDER PRESS OPERATOR Work Phone: [facility] Comment on above: Edema of both lower extremities (Primary Dx); Type 2 diabetes mellitus without complication, without long-term current use of insulin (CMS/HCC); BMI 25.0-25.9,adult; Chronic obstructive pulmonary disease, unspecified COPD type (CMS/HCC); Primary hypertension (CMS/HCC); Obstructive sleep apnea, adult; Leg swelling; Essential (primary) hypertension (CMS/HCC); B12 deficiency; Benign prostatic hyperplasia with weak urinary stream; 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 (CMS/HCC); Mixed hyperlipidemia (CMS/HCC) Start: 09-05-2023 End: 09-05-2023 ambulatory ANNALEE HERNÁNDEZ Not Available Start: 09-05-2023 End: 09-05-2023 Clinical Support Annalee Hernández [facility] Work Phone: [facility] Comment on above: 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 Start: 10-06-2022 End: 10-06-2022 ambulatory AILYN Kapadia [facility] Start: 10-06-2022 End: 10-06-2022 Encounter for general adult medical examination without abnormal findings AILYN Kapadia [facility] Start: 08-27-2022 Rx Renewal Ailyn Darling er Work Phone: [facility] Work Phone: Start: 08-27-2022 End: 08-27-2022 ambulatory Keira Haile Other [employer] Other Start: 08-27-2022 Office outpatient ne w 20 minutes [address] [facility] [place] Start: 05-18-2022 End: 05-19-2022 ambulatory E[facility]AB [facility] Start: 03-03-2022 AUDIT Ailyn Darling er [facility] Work Phone: Start: 12-08-2021 Office outpatient vi sit 25 minutes Ailyn Baez Work Phone: [facility] Work Phone: Start: 10-14-2021 Office consultation new/estab patient 60 min Ailyn Baez Work Phone: [facility] Work Phone: Start: 10-07-2021 Adv care pln tlkd & alt dcsn maker docd Ailyn Baez Work Phone: [facility] Work Phone: Start: 09-21-2021 ambulatory IP SURGERY TRA FLORI CONSULT Facility:[facility] Start: 09-14-2021 AUDIT Ailyn Darling er [facility]: [facility] Work [facility]: Start: 09-09-2021 Office outpatient ne w 30 minutes Ailyn Baez Work Phone: [facility] Work Phone: Start: 08-27-2021 End: 08-27-2021 ambulatory UNKNOWN PROVIDER Facility:[facility] Start: 08-26-2021 ambulatory NA TUKATLYN Facility:[facility] Start: 08-25-2021 End: 08-28-2021 Evaluation and management of inpatient NA TUKATLNY Facility:[facility] Start: 08-25-2021 ambulatory UNKNOWN PROVIDER Facili ty:[facility] Start: 08-22-2021 End: 08-22-[address] RADHA CHAPMAN Facility:[facility] Start: 08-18-2021 End: 08-19-[address] NARCISO GRAJEDA Facility:[facility] Start: 07-28-2021 End: 08-10-2021 Evaluation and management of inpatient URBANO VERMA Facility: Start: 06-09-2021 End: 06-10-2021 ambulatory ALEX SEAMAN Facility:[facility] Start: 03-18-2021 End: 03-19-2021 ambulatory ALEX SEAMAN Facility: Start: 09-30-2020 End: 10-01-2020 ambulatory NONE LISTED REQUEST Facility: Start: 09-02-2020 End: 09-03-2020 ambulatory ALEX SEAMAN Facility: Procedures Date Procedure Procedure Detail Performing Clinician Start: 08-05-2021 Insertion of Infusio n Device into Superior Vena Cava, Percutaneous Approach DR NARCISO GRAJEDA Start: 08-05-2021 Introduction of Nutritional Substance into Central Vein, Percutaneous Approach DR NARCISO GRAJEDA Start: 07-28-2021 Resection of Appendi x, Percutaneous Endoscopic Approach DR NARCISO GRAJEDA Appendectomy Ailyn solorio Work Phone: Comment on above: 07/28/2021; Colonoscopy Ailyn solorio Work Phone: Hernia repair Ailyn vargas Work Phone: Plan of Treatment Date Care Activity Detail Author Start: 12-12-2023 End: 12-12-2023 Patient encounter procedure 12/12/2023 1:00 PM EDT Office Visit [facility] [address] [place] [address] Annette Whitfield, KELL [address] [place] [address] [facility] Start: 10-11-2023 End: 09-12-2024 Basic metabolic 1998 panel - Serum or Plasma Basic metabolic panel Lab Routine Edema of both lower extremities Expected: 10/11/2023 (Approximate), Expires: 09/12/2024 [facility] Work Phone: Comment on above: Expected: 10/11/2023 (Approximate), Expires: 09/12/2024 Start: 09-23-2023 Pneumococcal Vaccine : 65+ Years (2 - PPSV23 or PCV20) Pneumococcal Vaccine: 65+ Years (2 - PPSV23 or PCV20) [facility] Comment on above: Postponed from 06/17 (Other Patient Reasons) Start: 09-21-2023 End: 09-21-2023 Clinical Support 09/21/2023 11:00 AM EST Clinical Support [facility] [address] [place] [id number] Annalee Hernández, [facility] [address] [place] [address] [facility] Start: 09-12-2023 End: 09-12-2023 Patient encounter procedure [facility] Comment on above: Type 2 diabetes denny itus without complication, without long- term current use of insulin ([facility]) Start: 10-06-2022 FUV, Provider: Ailyn Baez, Status: Pen, Time: 1:00 PM FUV, Provider: Ailyn Baez, Status: Pen, Time: 1:00 PM [facility] Work Phone: Start: 04-07-2022 FUV, Provider: Ailyn Baez, Status: Pen, Time: 1:15 PM FUV, Provider: Ailyn Baez, Status: Pen, Time: 1:15 PM [facility] Work Phone: Start: 02-09-2022 FUV, Provider: Narendra Newton, Status: Pen, Time: 10:30 AM FUV, Provider: Narendra Newton, Status: Pen, Time: 10:30 AM [facility] Work Phone: Start: 11-05-2021 FUV, Provider: Narendra Newton, Status: Pen, Time: 3:30 PM FUV, Provider: Narendra Newton, Status: Pen, Time: 3:30 PM [facility] Work Phone: Start: 10-14-2021 NPV, Provider: Narendra Newton, Status: Pen, Time: 11:00 AM NPV, Provider: Narendra Newton, Status: Pen, Time: 11:00 AM [facility] Work Phone: Start: 10-07-2021 FUV, Provider: Ailyn Baez, Status: Long, Time: 1:15 PM FUV, Provider: Ailyn Beaz, Status: Pen, Time: 1:15 PM [facility] Work Phone: Start: 2002 Pneumococcal Vaccine : 65+ Years (2 - PPSV23 or PCV20) Pneumococcal Vaccine: 65+ Years (2 - PPSV23 or PCV20) [facility] Immunizations Immunization Date Immunization Notes Care Provider Keily galvan 05-25-2023 Seasonal, quadrivale nt, recombinant, injectable influenza vaccine, preservative free [facility] Work Phone: [facility] 05-13-2023 SARS-COV-2 (COVID-19 ) vaccine, mRNA, spike protein, LNP, PF, 50 mcg/0.5 mL [facility] Work Phone: [facility] 04-25-2022 influenza, injectabl e, quadrivalent, preservative free [facility] Work Phone: [facility] 12-03-2021 Moderna COVID-19 Vaccine 100 MCG/0.5ML Intramuscular Suspension Ailyn Baez Work Phone: [facility] Work Phone: 06-23-2021 influenza virus vaccine, unspecified formulation Ailyn aBez Work Phone: [facility] Work Phone: Comment on above: Series: 06-23-2021 Influenza, injectabl e, Madin Elaina Canine Kidney, preservative free, quadrivalent [facility] Work Phone: [phone] [place] [address] 06-09-2021 Moderna COVID-19 Vaccine 100 MCG/0.5ML Intramuscular Suspension Ailyn Baez Work Phone: [facility] Work Phone: Comment on above: Series: 09-30-2020 Moderna COVID-19 Vaccine 100 MCG/0.5ML Intramuscular Suspension Ailyn Baez Work Phone: [facility] Work Phone: Comment on above: Series: 09-02-2020 Moderna COVID-19 Vaccine 100 MCG/0.5ML Intramuscular Suspension Ailyn Baez Work Phone: [facility] Work Phone: Comment on above: Series: 05-07-2020 Influenza, injectabl e, Madin Hackett Canine Kidney, preservative free, quadrivalent Ailyn Kapadia Baez Work Phone: [facility] Work Phone: 02-06-1999 pneumococcal conjuga te vaccine, 13 valent Ailyn Baez Work Phone: [facility] Work Phone: Comment on above: Series: Payers Date Payer Category Payer Unknown 2002 Medicare MEDICARE MEDICAR E PART B [id number] 2002-[place] [address] Medicare [id number] 1959 Medicare [id number] 1959 Self-pay 1959 Unknown [id number] 1937 Unknown [id number] [id number]3 1937 Unknown [id number] 2.16.840.1.331190.3.579.2.593 1937 Unknown [id number] 2.16.840.1.783431.3.579.2.593 1937 Unknown [id number] 2.16.840.1.088075.3.579.2.593 1937 Unknown [id number] 2.16.840.1.693921.3.579.2.732 1937 Unknown [id number] 2.16.840.1.151758.3.579.2.732 1937 Unknown [id number] 2.16.840.1.179058.3.579.2.732 1937 Unknown [id number] 2.16.840.1.501691.3.579.2.732 1937 Unknown [id number] 2.16.840.1.770928.3.579.2.732 1937 Unknown [id number] 2.16.840.1.169734.3.579.2.732 1937 Unknown [id number] 2.16.840.1.085468.3.579.2.732 1937 Unknown [id number] 2.16.840.1.851533.3.579.2.732 1937 Unknown [id number] 2.16.840.1.767903.3.579.2.732 1937 Unknown [id number] 2.16.840.1.925380.3.579.2.732 1937 Unknown [id number] 2.16.840.1.750368.3.579.2.1244 1937 Unknown [id number] 2.16.840.1.641993.3.579.2.1259 1937 Unknown [id number] 2.16.840.1.238776.3.579.2.1259 1937 Unknown [id number] 2.16.840.1.580879.3.579.2.1259 1937 Unknown [id number] 2.16.840.1.405785.3.579.2.1259 1937 Unknown [id number] 2.16.840.1.215987.3.579.2.1259 1937 Unknown [id number] 2.16.840.1.922990.3.579.2.1259 1937 Unknown [id number] 2.16.840.1.943676.3.579.2.1259 Unknown [id number] 2.16.840.1.911961.3.579.2.593 Unknown [id number] 2.16.840.1.811377.3.579.2.593 Unknown [id number] 2.16.840.1.209426.3.579.2.593 Unknown [id number] 2.16.840.1.204829.3.579.2.531 Social History Date Type Detail Facility Start: 08-09-2023 End: 09-12-2023 Former smoker Former smoker -[facility] Work Phone: Start: 08-09-2023 End: 09-12-2023 Sex Assigned At [facility] [employer] Other Start: 04-27-2023 Tobacco smoking status [facility] Ex-smoker [facility] History of tobacco use Current smoker [facility] History of tobacco use Cigarette Smoker [facility] Start: 04-27-2023 Tobacco use and exposure Smokeless tobacco non-user [facility] Start: 08-22-2023 End: 09-12-2023 Alcohol intake Lifetime non-drinker (finding) [facility] Start: 04-22-2023 Alcohol Comment caffeine intak e: more than 4 cups per day. [facility] Start: 1935 Sex Assigned At Not on file [facility] Clinical Notes 07-28-2021 to 09-12-2023 MARI GUAJARDO - 09/12/2023 1:20 PM Sridhar Whitfield, CYLINDER PRESS OPERATOR - 09/12/2023 1:20 PM Yamilepuneet Mendes Edgar, CCC-A - 09/05/2023 12:15 PM EST Note Date & Type Note Facility 09-12-2023 History of Present illness Narrative A lot of his medications still have doctor wagners name instead of yours Images from the original note were not included. Fidel Palomino is a 88 y.o. male presents with chief complaint of No chief complaint on file. HPI: Cough significantly better with use of atb, mostly in am sl yellow Hypertension This is a chronic problem. The current episode started more than 1 year ago. The problem is unchanged. The problem is controlled. Associated symptoms include peripheral edema. Pertinent negatives include no chest pain, headaches, palpitations or shortness of breath. There are no associated agents to hypertension. Risk factors for coronary artery disease include dyslipidemia and male gender. Past treatments include angiotensin blockers and beta blockers. The current treatment provides moderate improvement. Edema Presents with chronic edema. The current episode started more than 1 month ago. The onset of the episode was gradual. The problem presents itself daily. The problem has been waxing and waning. The edema is present on the both side(s). Associated symptoms include cough. Pertinent negative symptoms include no abdominal pain, no chest pain, no decreased urine volume, no fatigue, no fever, no nausea, no palpitations and no vomiting. Treatments tried include diuretics and elevating limb(s). There has been moderate improvement on treatment(s). SUBJECTIVE: MEDICATIONS: Current Outpatient Medications Medication Instructions aspirin 81 mg, Oral, Every 24 hours atorvastatin (LIPITOR) 40 mg, Oral, Daily b complex vitamins capsule 1 capsule, Oral, Daily carvedilol (COREG) 25 mg, Oral, 2 times daily with meals cyanocobalamin (VITAMIN B-12) 1,000 mcg, Oral, Daily finasteride (PROSCAR) 5 mg, Oral, Daily furosemide (LASIX) 20 mg, Oral, Daily PRN hydroCHLOROthiazide (HYDRODIURIL) 25 mg, Oral, Daily losartan (COZAAR) 100 mg, Oral, Daily oxygen (O2) 2 L/min, Inhalation, Continuous, Wear at night while sleeping potassium chloride CR (Klor-Con M10) 10 MEQ ER tablet 10 mEq, Oral, Daily PRN, Do not crush or chew. ALLERGIES: No Known Allergies REVIEW OF SYMPTOMS: Review of Systems Constitutional: Negative. Negative for activity change, appetite change, chills, fatigue, fever and unexpected weight change. HENT: Negative for congestion, ear pain, rhinorrhea, sinus pressure and sore throat. Eyes: Negative. Negative for pain, discharge and visual disturbance. Respiratory: Positive for cough. Negative for chest tightness and shortness of breath. Cardiovascular: Positive for leg swelling. Negative for chest pain and palpitations. Gastrointestinal: Negative. Negative for abdominal pain, constipation, diarrhea, nausea and vomiting. Genitourinary: Negative. Negative for decreased urine volume, flank pain and hematuria. Musculoskeletal: Negative. Negative for arthralgias, back pain, joint swelling and myalgias. Skin: Negative for color change, rash and wound. Neurological: Negative. Negative for dizziness, tremors, weakness, numbness and headaches. Psychiatric/Behavioral: Negative. Negative for agitation, hallucinations, sleep disturbance and suicidal ideas. The patient is not nervous/anxious. Hematological: Negative. Negative for adenopathy. Does not bruise/bleed easily. Endocrine: Negative. Negative for polydipsia, polyphagia and polyuria. Allergic/Immunologic: Negative. Negative for environmental allergies. PAST MEDICAL HISTORY Past Medical History: Diagnosis Date Appendicitis 2020 Hearing decreased, bilateral HTN (hypertension) (CMS/HCC) Hyperlipidemia (CMS/HCC) Pre-diabetes 09/12/2023 Primary hypertension (CMS/HCC) 08/28/2021 Sensorineural hearing loss (SNHL) of right ear with restricted hearing of left ear Vertigo Past Surgical History: Procedure Laterality Date CATARACT EXTRACTION, BILATERAL Bilateral HERNIA REPAIR OK LAP,APPENDECTOMY 07/28/2021 US GUIDED PERCUTANEOUS PERITONEAL OR RETROPERITONEAL FLUID COLLECTION DRAINAGE 08/25/2021 US GUIDED PERCUTANEOUS PERITONEAL OR RETROPERITONEAL FLUID COLLECTION DRAINAGE 08/25/2021 family history includes Cancer in his father; Diabetes in his sibling; Heart disease in his mother. OBJECTIVE: Visit Vitals BP 138/76 (BP Location: Left arm, Patient Position: Sitting, BP Cuff Size: Adult long) Pulse 83 Temp 96.6 F (Temporal) Resp 18 Ht 5' 11.5 Wt 185 lb SpO2 94% BMI 25.44 kg/m Smoking Status Former BSA 2.06 m Physical Exam Vitals reviewed. Constitutional: Appearance: Normal appearance. HENT: Head: Normocephalic. Right Ear: External ear normal. Left Ear: External ear normal. Nose: Nose normal. Mouth/Throat: Mouth: Mucous membranes are moist. Pharynx: Oropharynx is clear. Eyes: Extraocular Movements: Extraocular movements intact. Conjunctiva/sclera: Conjunctivae normal. Cardiovascular: Rate and Rhythm: Normal rate and regular rhythm. Pulses: Normal pulses. Heart sounds: Normal heart sounds. Pulmonary: Effort: Pulmonary effort is normal. Breath sounds: Rales (fine bibasilar rales) present. Abdominal: General: Bowel sounds are normal. Palpations: Abdomen is soft. Musculoskeletal: Cervical back: Neck supple. Right lower leg: Edema present. Left lower leg: Edema present. Skin: General: Skin is warm and dry. Capillary Refill: Capillary refill takes 2 to 3 seconds. Neurological: General: No focal deficit present. Mental Status: He is alert. Psychiatric: Mood and Affect: Mood normal. Behavior: Behavior normal. Thought Content: Thought content normal. Judgment: Judgment normal. ASSESSMENT AND PLAN: No follow-ups on file. 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 (CMS/HCC) Relevant Medications aspirin 81 MG EC tablet carvedilol (Coreg) 25 MG tablet Leg swelling Relevant Medications potassium chloride CR (Klor-Con M10) 10 MEQ ER tablet Hyperlipidemia (CMS/HCC) Relevant Medications atorvastatin (Lipitor) 40 MG tablet Obstructive sleep apnea, adult Type 2 diabetes mellitus without complication, without long-term current use of insulin (CMS/HCC) - Primary BMI 25.0-25.9,adult Edema of both lower extremities Relevant Medications furosemide (Lasix) 20 MG tablet hydroCHLOROthiazide (HYDRODiuril) 25 MG tablet Other Relevant Orders Basic metabolic panel Other Visit Diagnoses Essential (primary) hypertension (CMS/HCC) Relevant Medications hydroCHLOROthiazide (HYDRODiuril) 25 MG tablet documented in this encounter [facility] 09-05-2023 History of Present illness Narrative Hearing Aid Discussion: Pt here for HAD. 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 Discussed pros and cons of binaural amplification vs BICROS and pt decided to try BICROS. Pt likes beige and needs 3M claim professional for right ear and 3S claim professional for left ear. Will order aids from [employer]. Pt scheduled for HAF. Cost at fitting will be $3400 documented in this encounter [facility] 04-26-2023 Note [facility] Cardiology Clinic Note Chief Complaint: Patient here for 6 mo follow up CAD, hypertension, and hyperlipidemia. Only taking lasix and potassium PRN, but has been swelling so did take some last night and today. Denies increase in SOB and chest pain. HPI: Fidel Palomino is a 87 y.o. male Past medical history of CAD, hypertension, syncope with coughing. Cardiology ROS: Review of Systems HENT: Positive for hearing loss and tinnitus. Cardiovascular: Positive for dyspnea on exertion and leg swelling. Respiratory: Positive for shortness of breath. Musculoskeletal: Positive for muscle cramps. All other systems reviewed and are negative. Past Medical History He has no past medical history on file. Surgical History He has no past surgical history on file. Social History He reports that he quit smoking about 30 years ago. His smoking use included cigarettes. He has a 40.00 pack-year smoking history. He has never been exposed to tobacco smoke. He has never used smokeless tobacco. He reports that he does not currently use alcohol. He reports that he does not use drugs. Family History No family history on file. Allergies Patient has no known allergies. Medications Current Outpatient Medications: aspirin 81 mg EC tablet, Take 81 mg by mouth in the morning., Disp: , Rfl: atorvastatin (Lipitor) 40 mg tablet, Take 40 mg by mouth in the morning., Disp: , Rfl: carvedilol (Coreg) 25 mg tablet, Take 25 mg by mouth with breakfast and with evening meal., Disp: , Rfl: cyanocobalamin, vitamin B-12, 5,000 mcg tablet,disintegrating, Take 1 tablet by mouth in the morning., Disp: , Rfl: finasteride (Proscar) 5 mg tablet, Take 5 mg by mouth in the morning. Do not crush, chew, or split., Disp: , Rfl: furosemide (Lasix) 20 mg tablet, Take by mouth if needed. PRN, Disp: , Rfl: hydroCHLOROthiazide (HYDRODiuril) 25 mg tablet, Take 25 mg by mouth in the morning., Disp: , Rfl: OXYGEN THERAPY, Inhale., Disp: , Rfl: polyethylene glycol (Glycolax) 17 gram/dose powder, Take 17 g by mouth in the morning., Disp: , Rfl: potassium chloride ER (Micro-K) 10 mEq ER capsule, TAKE 1 CAPSULE BY MOUTH NEEDED for edema, Disp: , Rfl: tiZANidine (Zanaflex) 4 mg tablet, TAKE 1 TABLET BY MOUTH EVERY 6 (SIX) HOURS NEEDED MUSCLE spasms, Disp: , Rfl: Last Recorded Vitals BP 118/60 (BP Location: Left arm, Patient Position: Sitting) Pulse 68 Ht 1.803 m (5' 11 ) Wt 86.2 kg (190 lb) SpO2 93% BMI 26.50 kg/m??? Physical Examination: GENERAL: alert and oriented x3, well developed, in no acute distress. HEAD: atraumatic, normocephalic. EYES: ROBERTO, EOMI. NECK: trachea midline, no JVD present, no carotid bruits present. CARDIAC: S1, S2 present. RRR. No murmur, rubs, or gallops. RESPIRATORY: CTAB, no increased effort of breathing, no rales, rhonchi, or wheezing. ABDOMEN: soft, nontender, nondistended. EXTREMITIES: no lower extremity edema, peripheral pulses are 2+ bilaterally. No rash/skin discoloration present. NEURO: strength/sensation equal and symmetric in bilateral upper and lower extremities. PSYCH: appropriate mood, affect, and judgement. Investigations: Lexiscan stress test 04/15/2023: Conclusions: 1. Normal adequate Lexiscan myocardial perfusion imaging. Negative for ischemia by EKG and myocardial perfusion imaging 2. Hyperdynamic left ventricular systolic function with an EF of 75% 3. Borderline elevated 3 times daily of 1.20 4. No anginal symptoms or arrhythmias noted. Echocardiogram-[facility] Name: FIDEL PALOMINO Study Date: 05/18/2022 09:03 AM B/P: 136 mmHg/80 mmHg HR: 62 bpm Date of : 1935 Location: [facility] Height: 71 in. Age: 86 year(s) Patient Room : Weight: 188 lb. Gender: Male Patient Status: OutPt BSA: 2.05 m2 Indication: Dyspnea on exertion, Edema Examination: Echocardiogram (Complete), Lumason Contrast Image Quality: Fair Patient Consent: Procedure explained to patient s p @ c 3 Exam Details Contrast: I.V. dose of Lumason Conclusions Left Ventricle: The left ventricle is normal size. Global left ventricular systolic function is normal. The EF is 55 % visually. Left ventricular wall thickness is at upper normal limits. Diastolic dysfunction was indeterminate. Right Ventricle: The right ventricle is normal in size. Normal right ventricular systolic function. Doppler studies suggest normal right sided pressures. Left Atrium: The left atrium is normal in size. Overall Conclusions: Due to suboptimal imaging Lumason contrast was administered for opacification and better delineation of endocardial borders. No significant valvular abnormalities Assessment: Coronary artery disease involving ruby coronary arteries without angina Benign essential hypertension Cough syncope Dyslipidemia Plan: Continue guideline directed medical therapy for coronary artery disease including aspirin, mode (more content not included)... [facility] 10-29-2022 Note Lipid abnormalities are Well-controlled with Lipitor 40 mg Liver function remains normal [facility] 10-29-2022 Note Denied any lighthead edness, dizziness or syncope [facility] 10-29-2022 Note Well controlled- 120 /72 Continue current med regime- coreg, lasix, HCTZ [facility] 10-29-2022 Note [facility] CARDIOLOGY PROGR ESS NOTE HPI: Fidel Palomino is a 87 y.o. male here for Follow-up (6 mo f/u - no complaints ) Past medical history of CAD, hypertension, syncope with coughing. Currently patient denies chest pain, shortness of breath, orthopnea, palpitations, lightheadedness, dizziness or syncope since last visit. Overall states he is doing well denies any exercise/activity limiting symptoms. Review of Systems Constitutional: Negative. Respiratory: Negative. Cardiovascular: Negative. Neurological: Negative. All other systems reviewed and are negative. Visit Vitals BP 120/72 (BP Location: Right arm, Patient Position: Sitting) Pulse 64 Ht 1.803 m (5' 11 ) Wt 85.9 kg (189 lb 6.4 oz) SpO2 94% BMI 26.42 kg/m??? Smoking Status Former BSA 2.07 m??? No Known Allergies Medications: Current Outpatient Medications on File Prior to Visit Medication Sig Dispense Refill aspirin 81 mg EC tablet Take 81 mg by mouth in the morning. atorvastatin (Lipitor) 40 mg tablet Take 40 mg by mouth in the morning. carvedilol (Coreg) 25 mg tablet Take 25 mg by mouth with breakfast and with evening meal. cyanocobalamin, vitamin B-12, 5,000 mcg tablet,disintegrating Take 1 tablet by mouth in the morning. finasteride (Proscar) 5 mg tablet Take 5 mg by mouth in the morning. Do not crush, chew, or split. furosemide (Lasix) 20 mg tablet Take by mouth if needed. PRN hydroCHLOROthiazide (HYDRODiuril) 25 mg tablet Take 25 mg by mouth in the morning. polyethylene glycol (Glycolax) 17 gram/dose powder Take 17 g by mouth in the morning. potassium chloride ER (Micro-K) 10 mEq ER capsule TAKE 1 CAPSULE BY MOUTH NEEDED for edema tiZANidine (Zanaflex) 4 mg tablet TAKE 1 TABLET BY MOUTH EVERY 6 (SIX) HOURS NEEDED MUSCLE spasms OXYGEN THERAPY Inhale. [DISCONTINUED] potassium chloride CR (Klor-Con M10) 10 mEq ER tablet Take 10 mEq by mouth if needed. PRN No current facility-administered medications on file prior to visit. Physical Exam: Constitutional: Appearance: Normal appearance. Without apparent distress HENT: Head: Normocephalic and atraumatic. Nose: Nose normal. Mouth/Throat: Mouth: Mucous membranes are moist. Eyes: Extraocular Movements: Extraocular movements intact. Conjunctiva/sclera: Conjunctivae normal. Neck: Vascular: No JVD. Cardiovascular: Rate and Rhythm: Normal rate and regular rhythm. Pulses: Dorsalis pedis pulses are 3 on the right side and 3on the left side. Posterior tibial pulses are 3 on the right side and 3 on the left side. Heart sounds: Normal heart sounds, S1 normal and S2 normal. Pulmonary: Effort: Pulmonary effort is normal. Breath sounds: Normal breath sounds. Abdominal: General: Bowel sounds are normal. Palpations: Abdomen is soft. Musculoskeletal: General: Normal range of motion. Cervical back: Normal range of motion. Right lower leg: No edema. Left lower leg: No edema. Skin: General: Skin is warm and dry. Capillary Refill: Capillary refill takes less than 2 seconds. Neurological: General: No focal deficit present. Mental Status: alert and oriented to person, place, and time. Psychiatric: Mood and Affect: Mood normal. Behavior: Behavior normal. Thought Content: Thought content normal. Judgment: Judgment normal. Labs: 09/29/22 Sodium 134 - 146 mmol/L 138 Potassium, Bld 3.5 - 5.0 mmol/L 4.2 Chloride 98 - 109 mmol/L 96 Low CO2 22 - 32 mmol/L 35 High Anion gap 5 - 15 mmol/L 7 BUN 5 - 27 mg/dL 16 Creatinine 0.60 - 1.30 mg/dL 0.80 Comment: METHOD TRACEABLE TO IDMS STANDARD Glucose 65 - 99 mg/dL 139 High Calcium 8.5 - 10.5 mg/dL 9.7 Total Protein 6.0 - 8.0 g/dL 7.5 Albumin 3.2 - 5.3 g/dL 3.7 Alkaline Phosphatase 39 - 130 U/L 105 AST 0 - 41 U/L 17 ALT 0 - 40 U/L 19 Total bilirubin 0.3 - 1.2 mg/dL 0.7 eGFR (CKD-EPI)non-race dependent >59 ml/min/1.73sq.m 87 Ref Range & Units 1 mo ago Cholesterol 150 - 200 mg/dL 118 Low Triglycerides 27 - 150 mg/dL 100 HDL Cholesterol >39 mg/dL 38 Low Comment: HDL <40 mg/dL - High Risk HDL > or = 40mg/dL- Desirable HDL >60 mg/dL - Negative Risk VLDL 0 - 30 mg/dL 20 LDL (calc) <130 mg/dL 60 Comment: LDL <100 mg/dL - Desirable LDL >160 mg/dL - High Risk Cholesterol:HDL Ratio 1.0 - 5.0 3.1 CBC stable Last lab values have been reviewed CV Testin02/13/19 treadmill stress echo 06/04/2019 echocardiogram Transthoracic echo (TTE) complete Result Date: 05/18/2022 1 1 [facility] Heart Station [address] [place] [address] [phone] (fax) Echocardiogram-[facility] Name: FIDEL PALOMINO Study Date: 05/18/2022 09:03 AM B/P: 136 mmHg/80 mmHg HR: 62 bpm Date of : 1935 Location: [facility] Height: 71 in. Age: 86 year(s) Patient Room: Weight: 188 lb. Gender: Male Patient Status: Out (more content not included)... [facility] 10-29-2022 Note Overall pt is doing well without any concerning symptoms. Continue GDMT- ASA, lipitor, and coreg continue risk factor modifications- heart healthy diet, regular exercise as tolerated and continue all medications. [facility] 08-27-2022 Evaluation note Encounter Date Diagnosis Assessment Notes Aug, Right lumbar pain (ICD-10 - M54.50) Take medications as directed. Use caution when operating machinery with muscle relaxer as it may cause drowsiness. Alternating heat and ice to area 3-4 times per day. Rest a lot Follow up with primary care if there is no symptom improvement within the next week, sooner if symptoms worsen or new symptoms occur., Low back pain home care material was printed [employer] Other 01-31-2022 NoteTransitional Care Management Contact Initial communication post- discharge: 1st attempt: 08/31/21 Sources of Information: [x]Patient, family member or youth care specialist: Manasa Palomino (spouse) [x] Hospital Discharge Summary reviewed: [] Hospital fax received from: [] List of recent hospitalizations or ED visits reviewed : []Other: Date of Admission: 08/25/2021 Date of Discharge: 08/28/2021 Hospital Discharge diagnosis: Pelvic abscess in male (HCC) Current symptoms/Patient concerns: Patient advises is doing ok can ambulate with and without walker has not heard from C assisting with bathing and dressing. Per notes [facility] called [place] office advises unable due to lack of staffing message sent to inpatient Direct Care Worker to advise for correct agency Medication changes: Yes If yes, what are they and does patient understand how and when to take? yes Medication list reviewed with patient: Yes Needs follow up appointment or procedure: Yes Future Appointments Date Time Department Provider Status 09/21/21 8:00 AM LIVER [phone] Jd Dubon MD Scheduled 09/22/21 8:00 AM SURGERY GENERAL [phone] Clotilde Pettit APRN-FRED Scheduled 11/04/21 8:00 AM [facility] PUL[facility] [phone] Tatyana Potter MD Scheduled Review need for or follow up on pending diagnostic test, referrals to specialist and treatment plans with patient/caregiver: No Community resources identified for patient/family: [facility] i.e. [employer], [employer], [employer], [employer] Durable medical equipment ordered:Yes Education provided to patient/caregiver to support self management, ADL's, etc: ANDI offered Mode of Transportation: Patient arranges Additional information needed and requested:No Reminded to bring in all medications. (Old AND New) to future appointment. Interact with other health care management assistant involved in patient care:[facility] [employer] [id number] NoteMedicine Intensive Care Unit Critical Care Progress Note Fidel Palomino 86 year old 204.8075 lbs MRN/Room: [id number] Length of stay: 2 day(s) Summary Fidel Palomino is a 86 year old male with a PMH of HTN, HLD, recent appendectomy (07/28/21, at [facility]) c/b illeus who presented to the hospital 08/25 with syncope/lightheadedness, nausea/poor appetite. Imaging at outside hospital showed a fluid collection in R paracolic gutter concerning for abscess. Transferred to [facility] for further management. IR placed intraabdominal drain for fluid collection 08/25. Recommended continued antibiotics with Vanc/Cefepime/Flagyl. Fluid cultures obtained from site. In the [facility] ED, imaging showed moderate R and small L pleural effusion, small upper abdominal ascites. Admitted to MICU and remained stable. Continued on Vanc, Cefepime, Flagyl which was switched to Ceftriaxone with nguyễn-sensitive E.coli growing from fluid culture. Noted episodes of apnea at night with desats. Sleep study completed inpatient that showed moderate sleep apnea. Plan for discharge with CPAP. Also found to have new diagnosis of cirrhosis. On 08/28/2020 patient ready for discharge home, meds to beds called for levofloxacin. Overnight Lines: 1 peripheral, 1 PICC right upper arm, 1 surgical drain right upper abscess, 1 indwelling Drips: ceftriaxone Oxygen: 1 L and CPAP at night Subjective: Patient seen and examined at bedside. Mr. Palomino is doing well today. He has no current concerns and is looking forward to going home. Denies chest pain, SOB, headache, nausea, vomiting, diarrhea, other symptoms. Current Medications * melatonin 3 mg At Bedtime * cefTRIAXone orderable 2,000 mg Q12H Antibiotic * docusate sodium 100 mg 2x Daily * polyethylene glycol 17 g Daily * heparin (porcine) 5,000 Units Every End of Shift * senna 8.6 mg At Bedtime * aspirin 81 mg Daily * atorvastatin 40 mg At Bedtime * famotidine 30 mg Daily * sodium chloride 0.9% 10 mL Every 8 hours * bisacodyl 10 mg Daily PRN * acetaminophen 650 mg Q6H PRN * vancomycin dosing pharmacy consult As Directed Objective Patient Vitals for the past 24 hrs: BP Temp Temp src Pulse Resp SpO2 O2 Device O2 Flow Rate (l/min) 08/27/212121 -- -- -- 78 27 100 % CPAP 1 08/27/21 1900 140/75 -- -- 78 29 100 % -- -- 08/27/21 1800 138/74 -- -- 77 32 100 % Room air -- 08/27/21 1700 138/73 -- -- 73 28 100 % -- -- 08/27/21 1600 130/72 98.5 ???F (36.9 ???C) Oral 73 22 100 % Room air -- 08/27/21 1500 131/74 -- -- 83 30 92 % -- -- 08/27/21 1400 131/68 -- -- 85 30 95 % Room air -- 08/27/21 1300 127/76 -- -- 86 31 96 % -- -- 08/27/21 1200 128/73 98.2 ???F (36.8 ???C) Oral 83 32 95 % Room air -- 08/27/21 1100 111/64 -- -- 83 30 99 % -- -- 08/27/21 1000 118/66 -- -- 78 25 99 % Room air -- 08/27/21 0900 144/74 -- -- 81 25 92 % -- -- 08/27/21 0800 125/77 98.3 ???F (36.8 ???C) Oral 72 24 100 % Room air -- 08/27/21 0700 131/66 -- -- 79 24 99 % -- -- 08/27/21 0600 135/72 -- -- 74 26 99 % -- -- 08/27/21 0500 127/60 -- -- 75 26 98 % -- -- 08/27/21 0400 129/74 97.7 ???F (36.5 ???C) Oral 73 25 97 % -- -- 08/27/21 0300 128/62 -- -- 75 27 97 % -- -- 08/27/21 0203 -- -- -- -- -- -- Nasal cannula 2 08/27/21 0200 108/64 -- -- 73 23 97 % -- -- 08/27/21 0122 -- -- -- -- -- -- Nasal cannula 1 08/27/21 0100 98/50 -- -- 76 16 90 % -- -- 08/27/21 0000 94/51 97.9 ???F (36.6 ???C) Oral 73 22 90 % -- -- 08/26/21 2300 131/70 -- -- 71 28 100 % Room air -- Intake/Output Summary (Last 24 hours) at 08/27/20212202 Last data filed at 08/27/2021 1900 Gross per 24 hour Intake 1920 ml Output 1745 ml Net 175 ml In: 1430 (15.4 mL/kg) [P.O.:960; I.V.:450 (0.2 mL/kg/hr)] Out: 1985 (21.4 mL/kg) [Urine:1915 (0.9 mL/kg/hr); Drainage:70] Net: -555 Weight: 92.9 kg Physical Exam Gen: White male in NAD. HEENT: Normocephalic, atraumatic. EOMI. Oral and mucus membranes pink and moist Neck: Supple. CV: Regular rate and rhythm. No murmurs. No S3 or S4 noted. Lungs: Clear to auscultation bilaterally anteriorly. No wheezes, rales, or rhonchi. Abdomen: Soft. Non-tender. Non-distended. R sided drain in place with minimal dark red drainage. Extremities: B/l 1+LE edema. No pain Neuro: A AND Ox3. No focal deficits appreciated. Skin: Warm and well perfused. Labs CBC/PT/INR WBC RBC Hgb Hct MCV RDW Plt PT aPTT INR 08/27/21417 9.1 3.11 9.2 27.5 88 13.8 255 08/26/21 0431 11.5 3.05 8.9 27.3 90 13.7 225 08/25/21 1340 16.5 3.22 9.5 28.8 90 13.5 236 08/25/21 0510 1.36 08/25/21 0510 18.2 3.67 10.6 33.0 90 13.8 267 WBC/Diff Neutro% Segs% Bands% Lymphs% Monos% Eos% Basos% 08/27/218 76.7 10.1 9.5 2.7 0.9 08/26/21 0431 81.2 8.0 9.0 1.5 0.4 08/25/21 0510 87.5 3.6 8.3 0.4 0.2 Basic Metabolic Panel Na K Cl CO2 Gap Glu BUN Cr Ca Mg PO4 08/27/21417 1.8 08/27/21417 134 4.0 94 33 11 149 25 1.16 7.6 (more content not included)...[facility] [id number] NoteDISCHARGE SUMMARY [facility] [address] [place] [address] Fidel Palomino Date of : 1935 86 year old male Attending Nathan Gurerero MD Date of Admission 08/25/2021 Date of Discharge 08/28/2021 [Principal Hospital Problem (Final Diagnosis)] Pelvic abscess in male (HCC) [Secondary Hospital Problems] Primary hypertension Hyperlipidemia Syncope JOE (obstructive sleep apnea) Pleural effusion Cirrhosis (HCC) Discharge Procedure Orders HOME CARE SERVICE REQUEST HOME CARE SERVICE REQUEST GENERAL SURGERY SERVICE REQUEST SLEEP APNEA (JOE) SERVICE REQUEST GASTROENTEROLOGY SERVICE REQUEST Pulmonary SOB (other than Asthma or COPD) Service Request No future appointments. Condition at Discharge Improved Activity No restrictions Diet No restrictions Disposition Home with home care Functional Status Ambulatory Reason for Hospitalization Intraabdominal abscess s/p recent appendectomy Significant Findings US Liver (08/26/21): IMPRESSION: 1. Cirrhotic liver with a trace amount of perihepatic ascites. No focal suspicious hepatic lesion identified. 2. Diffuse gallbladder wall thickening is nonspecific and may occur secondary to cirrhosis and ascites. No cholelithiasis is demonstrated. Echo (08/26/21): ???Normal LV systolic function. ???The left ventricular ejection fraction (LVEF) is 65%. ???Normal RV systolic function. ???No left ventricular hypertrophy is present. ???Mild tricuspid valve regurgitation. ???Fibrocalcific changes are seen in the aortic valve. ???Noninvasive hemodynamic assessment is consistent with normal pulmonary ???artery systolic pressure, a low CVP. ??? US cath drainage (08/25/21): IMPRESSION: Technically successful ultrasound-guided placement of a 10 Malagasy pigtail catheter into right paracolic gutter abscess. ??? CTA chest (08/25/21): IMPRESSION: 1. ???No acute pulmonary embolism identified. PE cannot be evaluated beyond the segmental level due to the limitations above. 2. ???Moderate right and small left pleural effusions with adjacent atelectasis. Superimposed infection is not favored but would be difficult to exclude. 3. ???Small volume upper abdominal ascites, with partially visualized postoperative fluid collection. 4. ???Three-vessel coronary artery disease. 5. ???Gallbladder wall thickening/edema is likely reactive. The gallbladder is nondistended. Hospital Course Fidel Palomino???is a 86 year old???male???with a PMH of HTN, HLD, [facility] c/b illeus???who presented???to the hospital 08/25???with syncope/lightheadedness, nausea/poor appetite. Imaging at outside hospital showed a fluid collection in R paracolic gutter concerning for abscess. Transferred to [facility] for further management. IR placed intraabdominal drain for fluid collection 08/25. Recommended continued antibiotics with Vanc/Cefepime/Flagyl. Fluid cultures obtained from site.? In the [facility] ED, imaging showed moderate R and small L pleural effusion, small upper abdominal ascites. Admitted to MICU and remained stable. Continued on Vanc, Cefepime, Flagyl which was switched to Ceftriaxone on 08/27 with nguyễn-sensitive E.coli growing from fluid culture. Per ID will require 750 mg levofloxacin x4 days at discharge. Noted episodes of apnea at night with desats while inpatient. Sleep study completed that showed moderate sleep apnea. Will need CPAP at night homegoing. Also found to have new diagnosis of cirrhosis, confirmed by US Liver. Hepatitis labs (HepB and C) unremarkable. Will need PCP, liver clinic, pulm follow-up. To do: [ ] f/u with PCP, gen surgery (remove drain), pulmonary (bilateral pleural effusions), GI (new onset cirrhosis) (appointments set up at [facility], patient understands this and is responsible for setting up appointments in his own area) [ ] finish 4 days of levofloxacin [ ] get CPAP machine for wearing at night given JOE [ ] trend BMP outpatient [ ] diabetes management outpatient I provided the patient and/or family/surrogate with the following information: Explanation of the primary diagnosis, and secondary diagnoses where applicable, including test results Rubio Baker DO PGY-2 [id number] [id number] NotePHYSICAL THERAPY ACUTE EVALUATION Referral received, chart reviewed. Patient seen on unit MICU on CCP3W for 21 minute co-evaluation with OT. Time in: 8:29 Time out: 8:50 Admit date/time: 08/25/2021 4:58 AM Reason for admit: Lightheadedness, dizziness, constipation, diarrhea, nausea, decreased p.o. intake, and BLE edema. Pt found to have a R paracolic gutter abdominal collection, severe sepsis, acute on chronic hypoxic respiratory failure, cirrhosis, and DIONISIO. Procedures this admit: 08/25/21: Underwent placement of R abdominal pigtail drain. PMH: L inguinal hernia (s/p repair) Past Medical History: Diagnosis Date * HLD (hyperlipidemia) * HTN (hypertension) PSH: Appendectomy (07/28/21) Past Surgical History: Procedure Laterality Date * APPENDECTOMY; Precautions: Fall, DNR CCA DNI. Activity orders: Progressive mobility. Identification was verified by patient's id band and date of . Risks and Benefits of physical therapy: Patient informed of risks and benefits of treatment. SUBJECTIVE: Patient Subjective: I'm suppose to go home tonight. Patient Identified Goal(s): Pt mobilize OOB. Home: Pt lives with in a one-story house. 2 steps to enter with rail. 0 steps to bedroom/bathroom. Assistance available: , adult children (x4). Equipment available: Wheeled walker, tub bench, grab bars. DRILLER'S OFFSIDER Status: Independent living. Pt ambulated without an assistive device. OBJECTIVE: Appearance: Pt resting in bed when therapists entered the room. Pt with EKG, BP cuff, pulse ox, SCDs, and rivers in place. Behavior: Alert, appropriate, cooperative. Pt follows one-step commands consistently and with cues. Orientation: x3. Pain: -Ratin/10. -Location: NA. -Occurrence: at rest. -Relief Interventions Implemented: None required; No pain at this time. UE Status: See OT evaluation. LE Status: Right Left Comments ROM: Not formally tested however observed WFL for basic level of mobility. Strength: Grossly at least 3/5 throughout. Mobility: NA Dep Max Mod Min CG CS DS VA I Comment Rolling x Supine>sit x HOB elevated. Sitting trial x Unsupported sitting at EOB. Transfer x Sit<>stand x Without an assistive device. Standing trial x Ambulation x 30 feet x2 without an assistive device. Pt demonstrated steady step-through gait pattern. Stairs x 4 steps with unilateral rail. Pt negotiated stairs utilizing a [id number] pattern. Balance: -Unsupported static sitting: independent. -(Un)supported dynamic sitting: NT. -Unsupported static standing: distant supervision. -Unsupported dynamic standing: distant supervision. Endurance: Impaired. Vitals: RN notified. -Lying in bed at beginning of therapy session: SpO2: 93% on room air; HR: 89 bpm; BP: 152/84 (104) mmHg. -With mobility: SpO2: 76% on room air; HR: 113 bpm. Pt asymptomatic throughout all mobility. -Sitting in recliner at end of therapy session: SpO2: 99% on room air; HR: 93bpm.. Progressive Mobility Level: 4 6 Clicks Basic Mobility PT: No data found 6 Click Score Guidelines: 1 - Unable = Total/Dependent Assist 2 - A lot = Max/Moderate Assist 3 - A little = Minimum/Contact Guard Assist/Supervision 4 - Non = Modified Miner/Independent Patient/Family Education: Instructed pt in roles of therapy. Pt resting in recliner at end of treatment session with RN present and chair alarm in place and call light in reach. Pt instructed to call for staff assistance prior to mobilizing. Pt verbalized good understanding. RN made aware of pt's response to treatment, mobility status, and position in room. ASSESSMENT: Fidel Palomino is an 86 YOM admitted with lightheadedness, dizziness, constipation, diarrhea, nausea, decreased p.o. intake, and BLE edema. Pt found to have a R paracolic gutter abdominal collection, severe sepsis, acute on chronic hypoxic respiratory failure, cirrhosis, and DIONISIO. Pt underwent placement of R abdominal pigtail drain on 08/25/21. Currently pt is mobilizing at baseline and is functionally appropriate for discharge home once medically cleared. Recommend Home Physical Therapy. Recommend OOB to chair for all meals. Problems: Decreased strength Decreased endurance Decreased education in exercise/precautions Decreased safety awareness Impaired functional mobility Impaired balance Rehabilitation Potential: Good Goals (to be achieved by discharge from acute care): 1. Patient will achieve acceptable level of pain control to allow participation in therapy. 2. Patient will ambulate 150 feet with independence. 3. Patient will ascend/descend 2 stairs with unilateral rail and modified independence. 4. Patient will increase ROM/Strength/Endurance/Balance to allow for above goals. PLAN OF CARE: Frequency: Patient to be seen 3-5 times a week. Interventions: Functional mobility ROM Strengthening Balance training Home exercise program Discharge lucero (more content not included)...[employer] [id number] NoteOCCUPATIONAL THERAPY INITIAL EVALUATION Patient seen from 0829 to 0850 on CCP3W unit for 21 minutes. Co-tx with PT due to high medical complexity, safety concerns, assist of 2 required for mobility and/or advanced airway in place. Admit date: 08/25/2021 4:58 AM Reason for Admit: patient is tx from [facility] for post op complications post appendectomy on 07/28/21. Patient having fluiid build and possible cyst at surgical site. Patient was discharged home, presented to [facility] ED for lightheadedness and dizzies. Diagnosis: hypoxia, R paracolic gutter fluid collection , pneumonia of R lung, pleural effusion, abdominal distension., Precautions/Activity Order: mod falls, DNRCC-A-DNI, progressives mobility, Procedures this admit: 08/25/21 Note: Technical successful placement of 10Fr pigtail drainage catheter into right abdominal fluid collection with removal of 100cc purulent fluid. Echocardiogram: Summary ??? Normal LV systolic function. The left ventricular ejection fraction (LVEF) is 65%. Normal RV systolic function. No left ventricular hypertrophy is present. Mild tricuspid valve regurgitation. Fibrocalcific changes are seen in the aortic valve. Noninvasive hemodynamic assessment is consistent with normal pulmonary artery systolic pressure, a low CVP. See above for further details. ??? Recent admission: hospitalized after his appendectomy 07/28-08/17. He felt well for 2-3 days after discharge but began feeling lightheaded for which he went to an ED and discharged after recommendation to stay hydrated Past Medical and Surgical History: PMH: Past Medical History: Diagnosis Date * HLD (hyperlipidemia) * HTN (hypertension) PSH: Past Surgical History: Procedure Laterality Date * APPENDECTOMY; SUBJECTIVE: Patient Subjective: they haven't let me out of this bed I did everything on my own Patient Identified Goal(s): return home Home Living Situation Prior Functional Status: Independent Living. Pt reports independent with ADLs and IADLs. ( +driving ) Assistance Available at Home: Yes. Patient lives with who can provide assistance if needed. Patient lives in a 1 story home 2 stairs to enter with rail. Full Bathroom on main level. Bedroom on main level. Equipment available at home: Tub bench, grab bars tubs, raised ts, grab bars toilet, rolling walker OBJECTIVE: Patient Identification: patient verbalizing his/her name and date of . Risks and benefits of occupational therapy: Patient informed of risks and benefits of treatment Appearance: tape coater, Pulse Oximeter, IV, Rivers and Sequential Compression Devices (SCDs) Alertness: WFL Affect: WNL Cooperation/Behavior: Appropriate dialogue with therapist and Pleasant and cooperative Communication: WFL Pain: Pain ratin/10, Location: no pain Pain Relief Interventions Implemented: None required; No pain at this time Self Care: Assistance Level Dep Max Mod Min CG CS DS VA I Set-Up Comment Feeding x Independent Grooming/Hygiene x Standing at sink to complete hand hygiene Bathing:UB x Anticipate Bathing:LB x Based on functional reach/pain. Dressing:UB x Don gown Dressing: LB x Assist to don socks. Patient reports reports assist from required at baseline. Toileting x Seated at toilet, completes hygiene standing Transfers/Bed Mobility: Assistance Level Dep Max Mod Min CG CS DS VA I Set-Up Comment Toilet Transfers x Sit <>stand toilet. Cues for use of grab bars. Bed Transfers x Sit to stand from EOB without AD. Cues for technique . Bed Mobility x Supine to sit at EOB. Flat HOB, bed rail used. Cues provided for log roll technique. Functional mobility. x Ambulate long household distance without AD. No LOB noted. Endurance for Self Care: Good. Patient desaturates with functional mobility however does not report SOB. Vitals Pre-Mobility During Mobility Post Mobility Oxygen 97% 76-91%, cues for PLB. ( on RA ) 97% Heart Rate 89 bpm 112 bpm 89 bpm Respiratory Rate 29 BP 152/84 Static Sitting Balance: WFL Dynamic Sitting Balance: WFL UE Motor: BUE WFL Vision/Perception: WFL Cognition: Orientation: Oriented to person, place and date Follows Commands: WFL Attention: WNL Memory: WFL Problem Solving: WFL Safety/Judgement: requires min cues for saftey during functional transfers and requires min cues for saftey during ADL Sequencing: WFL Other Specialized Tests: None Patient/Family Education: Instructed patient in roles of therapy and instructed in roles, goals, treatment plan: demonstrated good verbal understanding Patient up in chair with call light in reach. ???Chair alarm intact. RN notified. DME: With Patients permission ordered no equipment via [employer] Order. If any questions contact [facility] DME Provider at [phone]. ??? 6 Clicks Daily Activity OT 08/28/2021 Help from another person Eating meals 4 Help from another person taking care of (more content not included)...[facility] CenterCreativeLive [id number] NoteOPTASTRIA REGIONAL [facility] HOME INFUSION NOTE Referral from: Insurance verification:in progress Discussion with patient:to follow Home Health Agency:to be determined Start of care:to be determined Other:Following for HIVAT needs at [place]. Weekends, holidays or after hours contact [facility] Care intake @ [phone] Annette Cardozo RN Clinical Transition Specialties [facility] [phone] or [phone]01-27-2022 NoteBEDSIDE RN PICC LINE INSERTION PROCEDURE NOTE Date: 08/27/2021 Time: 1440 Patient location: [facility] Indication for line: IV ANTIBIOTICS Consent obtained. PICC consent obtained from PATIENT by BEATRIZ BARRAGAN RN Two identifiers used: NAME and Time out performed at bedside: 1440 Placement method: U/S MST with VPS Analgesia: LIDOCAINE Catheter utilized: 4.5 fr. SINGLE lumen 55 cm Catheter length: 41 Procedure details: PICC catheter was inserted using sterile technique to the RIGHT BASILIC vein. Placement attempts: 1. Placement successful: YES. Placement verified via ECG/VPS guided technology. 0 cm of catheter exposed. A dry CHG impregnated occlusive dressing was applied to the site and secured using suture. Procedure tolerated by patient: YES. Complications: NONE. Catheter was flushed with NS and Heplock flush. Central line information sheet and verbal education provided. NO, X-RAY NEEDED FOR PICC PLACEMENT VERIFICATION Klarissa Ahuja RN Vascular Access TeamThe [facility]01-27-2022 NoteDNR Comfort Care Arrest- Do Not Intubate NEURO: Restraints: No. Frequent Neurochecks: No. Nursing Issues: None CARDIAC IV access/Lines: #20 LAC, #22 RFA Lines needing D/C'd None AM labs: Yes Infusions: None Infusions needed D/C (off for more than 24 hours): None Nursing Issues: None PULMONARY: Spontaneous Breathing Trial: No Advanced Airway: None Orders needing discontinue: No Nursing Issues (Vent, Wean, Oxygen) None GI/: Rivers: Yes. Can this be discontinued: Yes: Tube feeding: No CONSULT: No Diet: Regular Do medications have proper route (OG, PEG, NG, PO): Yes Nursing issues (CVVH, I AND O's...) None SKIN: Device management: Yes Wound consult: No Nursing issues (specialty bed, new skin concern, skin care orders etc..): None MD note in for stage III injury: No PSYCHOSOCIAL: Family meeting: No Social work or Care management needs: Yes discharge with proper equipment and VN to follow for IV antibiotic therapy Pain management: None Nursing concerns: None DISPOSITION: Transfer: No Discharge: No Can patient be transferred to lower level of care: No Criteria for transfer (stable H AND H etc.): Needs home going care established Nursing concerns: Discharge home care and equipment OVERNIGHT CONCERNS: None NOTES REGARDING PLAN OF CARE: Yes BARRIERS TO PLAN OF CARE: None SEAT JOINER LEAH Mcneal RN DAY SHIFT RN Ghislaine Baez RNOhiohealth Grady [facility] Hospital [employer] [id number] NoteMedicine Intensive Care Unit Critical Care Progress Note Fidel Palomino 86 year old 205.0275 lbs MRN/Room: [id number]/CP3-129/1 Length of stay: 2 day(s) Summary Fidel Palomino is a 86 year old male with a PMH of HTN, HLD, [facility] c/b illeus who presented to the hospital 08/25 with syncope/lightheadedness, nausea/poor appetite. Imaging at outside hospital showed a fluid collection in R paracolic gutter concerning for abscess. Transferred to [facility] for further management. IR placed intraabdominal drain for fluid collection 08/25. Recommended continued antibiotics with Vanc/Cefepime/Flagyl. Fluid cultures obtained from site. In the [facility] ED, imaging showed moderate R and small L pleural effusion, small upper abdominal ascites. Admitted to MICU and remained stable. Continued on Vanc, Cefepime, Flagyl which was switched to Ceftriaxone with nguyễn-sensitive E.coli growing from fluid culture. Noted episodes of apnea at night with desats. Sleep study completed inpatient that showed moderate sleep apnea. Plan for discharge with CPAP. Also found to have new diagnosis of cirrhosis. Overnight Subjective: Patient seen and examined at bedside. States he did not sleep well last night, but he was put on the nocturnal pulse ox, without BiPAP. Having some leaking BM, no solid BM yet. Recent Events: - No acute events overnight - Consults: - ACS: continue Vanc/Cefepime, Flagyl; no new recs - Vitals: HDS, Afebrile, SpO2 99% on 2L NC (No BiPAP overnight) - Labs: - CBC without leukocytosis 9.1, hgb stable 9.2 (from 8.9). BMP with improving DIONISIO (1.16 from 1.4). LFTs continued mild ALT elevation 57, low albumin 1.6 - Aerobic wound: nguyễn-sensitive E.coli - Imaging: - Echo: Normal LV systolic function. The left ventricular ejection fraction (LVEF) is 65%. Normal RV systolic function. No left ventricular hypertrophy is present. Mild tricuspid valve regurgitation. Fibrocalcific changes are seen in the aortic valve. Noninvasive hemodynamic assessment is consistent with normal pulmonary artery systolic pressure, a low CVP. -RUQ US: IMPRESSION: 1. Cirrhotic liver with a trace amount of perihepatic ascites. No focal suspicious hepatic lesion identified. 2. Diffuse gallbladder wall thickening is nonspecific and may occur secondary to cirrhosis and ascites. No cholelithiasis is demonstrated. Current Medications * vancomycin One Time Dose * polyethylene glycol 17 g Daily * cefepime 2,000 mg Q12H Antibiotic * heparin (porcine) 5,000 Units Every End of Shift * senna 8.6 mg At Bedtime * aspirin 81 mg Daily * atorvastatin 40 mg At Bedtime * famotidine 30 mg Daily * sodium chloride 0.9% 10 mL Every 8 hours * metronidazole in iso-osmotic sodium chloride 100 mL 500 mg Q8H Antibiotic * acetaminophen 650 mg Q6H PRN * vancomycin dosing pharmacy consult As Directed Objective Patient Vitals for the past 24 hrs: BP Temp Temp src Pulse Resp SpO2 O2 Device O2 Flow Rate (l/min) 08/27/21 0600 135/72 -- -- 74 26 99 % -- -- 08/27/21 0500 127/60 -- -- 75 26 98 % -- -- 08/27/21 0400 129/74 97.7 ???F (36.5 ???C) Oral 73 25 97 % -- -- 08/27/21 0300 128/62 -- -- 75 27 97 % -- -- 08/27/21 0203 -- -- -- -- -- -- Nasal cannula 2 08/27/21 0200 108/64 -- -- 73 23 97 % -- -- 08/27/21 0122 -- -- -- -- -- -- Nasal cannula 1 08/27/21 0100 98/50 -- -- 76 16 90 % -- -- 08/27/21 0000 94/51 97.9 ???F (36.6 ???C) Oral 73 22 90 % -- -- 08/26/21 2300 131/70 -- -- 71 28 100 % Room air -- 08/26/21 2200 127/62 -- -- 72 24 100 % -- -- 08/26/21 2100 119/58 -- -- 71 25 100 % -- -- 08/26/21 2000 99/64 97.6 ???F (36.4 ???C) Oral 66 20 100 % -- -- 08/26/21 1900 104/56 -- -- 66 19 100 % -- -- 08/26/21 1800 105/59 -- -- 72 22 100 % Nasal cannula 2 08/26/21 1700 103/59 -- -- 70 20 100 % -- -- 08/26/21 1600 125/63 97.4 ???F (36.3 ???C) Oral 78 27 99 % Nasal cannula 2 08/26/21 1500 129/69 -- -- 73 22 98 % -- -- 08/26/21 1400 123/65 -- -- 71 25 94 % -- -- 08/26/21 1300 112/62 -- -- 67 25 98 % -- -- 08/26/21 1235 -- 97.6 ???F (36.4 ???C) Oral -- -- -- -- -- 08/26/21 1200 111/64 -- -- 69 24 96 % Nasal cannula 2 08/26/21 1100 112/75 -- -- 66 23 98 % Nasal cannula 2 08/26/21 1000 124/83 -- -- 72 23 96 % -- -- 08/26/21 0900 103/58 -- -- 61 12 98 % -- -- 08/26/21 0800 120/62 -- -- 72 19 98 % Nasal cannula 3 08/26/21 0742 -- 97.7 ???F (36.5 ???C) Oral -- -- -- -- -- 08/26/21 0700 105/66 -- -- 65 20 96 % -- -- Ins AND Outs Admission Weight Weight: 180 lb (81.6 kg) Today's Weight Weight: 205 lb 0.4 oz (93 kg) BMI 28.6 Change in Weight: Current value is 205.0 lb (92.999 kg) on 08/26/2021 at 0600 +2.2 lb (1.000 kg) (1.09 %) from 202.8 lb (91.999 kg) on 08/25/2021 at 1810 (previous value) +25.0 lb (11.352 kg) (13.90 %) from 180.0 lb (81.647 kg) on 08/25/2021 at 1637 (first value for this admission) Intake/Output Summary (Last 24 hours) at 08/27/2021 0635 Last data filed at (more content not included)...[employer] 08-26-2021 NoteSocial Work ICU Assessment: Referral: stewardesses teacher screen for pt has living will but not with pt. MARKIE met with pt and , Manasa at bedside. HX: 86 year old???male???with a h/o HTN, HLD, BPH, remote left inguinal hernia repair with mesh, s/p appendectomy 07/28/21 (done at [facility]) c/b ileus???who presented to [facility] ED for lightheadedness and dizziness. Living Situation: Pt reports he lives with in one story home. Family/Next of Kin: Manasa Palomino: [phone]. Pt has 4 adult children. Advance Directive Information: Pt reports he does not have ADs in place and only Last Will and Testament. Pt and report they are both work with circular stuffer to get these completed. SW addressed the hierarchy of identification of substitute decision-makers in the state of [place] is (in order) court-appointed legal guardian, health-care power of defense attorney, spouse, majority of adult children, parents, majority of adult siblings, and nearest relative. Finances/Insurance: Medicare A AND B and [place]. Social Work Need/Indicators: SW met with pt and at bedside. Addressed role on ICU. Pt denies any SDOH concerns. Pt notes he was independent with ADLs prior to admission. Enjoys woodworking, puzzles, and tending to his home. Pt notes he was on home O2 prior to this admission and did not have HHC. Pt and both note interested in HHC if recommended at time of DC. Denies any further SW needs at this time. Discharge Plan: TBD. Ancipitate pt will DC home. Interested in possible HHC at time of DC. SW provided fOC list for HHC agencies pending PT/OT, recs. SW will follow. Bailey Casillas [facility] Care Coordination DepartmentThe [facility] [id number] NoteDNR Comfort Care Arrest- Do Not Intubate NEURO: Restraints: No. Frequent Neurochecks: No. Nursing Issues: No acute issues CARDIAC IV access/Lines: Peripheral Line(s): Location right arm, left arm, gauge 20 and 22 AM labs: Yes Nursing Issues: BLE edema, echo performed today PULMONARY: Orders needing discontinue: No Nursing Issues (Vent, Wean, Oxygen) SPO2 stable on 2L NC GI/: Rivers: Yes. Can this be discontinued: No : Diet: Regular soft Do medications have proper route (OG, PEG, NG, PO): Yes Nursing issues (CVVH, I AND O's...) Pt has intermittent diarrhea SKIN: Device management: All preventative measure in place, DANGELO system used Wound consult: No Nursing issues (specialty bed, new skin concern, skin care orders etc..): No acute issues PSYCHOSOCIAL: Family meeting: updated at bedside today Social work or Care management needs: No acute needs at this time Pain management: PRN DISPOSITION: Transfer: No Discharge: No Can patient be transferred to lower level of care: No Criteria for transfer (stable H AND H etc.): Pt will have nocturnal pulse ox tonight OVERNIGHT CONCERNS: Pt desaturated overnight with some episodes of sleep apnea NOTES REGARDING PLAN OF CARE: echo and ultrasound performed today, will perform nocturnal pulse ox tonight BARRIERS TO PLAN OF CARE: none SEAT JOINER LEAH Soelr DAY SHIFT LEAH [facility]01-26-2022 NoteMedicine Intensive Care Unit Critical Care Progress Note Fidel Palomino 86 year old 205.0275 lbs MRN/Room: [id number]/CP3-129/1 Length of stay: 1 day(s) Summary Fidel Palomino is a 86 year old male with a PMH of HTN, HLD, recent append[facility] ([facility]) c/b illeus who presented to the hospital 08/25 with syncope/lightheadedness, nausea/poor appetite. Imaging at outside hospital showed a fluid collection in R paracolic gutter concerning for abscess. Transferred to [facility] for further management. IR placed intraabdominal drain for fluid collection 08/25. Recommended continued antibiotics with Vanc/Cefepime/Flagyl. Fluid cultures obtained from site. In the [facility] ED, CBC with leukocytosis 18.2. CBC w/ bicarb 33, BUN/Cr 28/1.96. LFTs with elevated AST/ALT 83/125, elevated ALK phos 229. Albumin 1.7. BNP elevated 321. Imaging with CTA without PE, moderate R and small L pleural effusion, small upper abdominal ascites. Stable in the MICU, continued on Vanc, Cefepime, Flagyl. Noted episodes of apnea at night with desats. Overnight Subjective: Patient seen and examined at bedside. Doing great today, denies pain, states this is the best sleep he has had in months. Recent Events: - No acute events overnight - Consults: - ACS following - Vitals: HDS, Afebrile, SpO2 96% on 3L NC - Labs: - CBC without leukocytosis 11.5 (16.5), hgb stable 8.9 (from 9.5). BMP with improving DIONISIO (1.4 from 1.6). LFTs normalized, only mild ALT elevation 77, low albumin 1.5. Mag 1.8. - Aerobic wound: 4+ PMNs, mixed polymicrobial brett - Imaging: - No new Current Medications * cefepime 2,000 mg Q12H Antibiotic * vancomycin iv 1,500 mg One Time Dose * magnesium sulfate 2,000 mg One Time Dose * heparin (porcine) 5,000 Units Every End of Shift * senna 8.6 mg At Bedtime * aspirin 81 mg Daily * atorvastatin 40 mg At Bedtime * famotidine 30 mg Daily * sodium chloride 0.9% 10 mL Every 8 hours * metronidazole in iso-osmotic sodium chloride 100 mL 500 mg Q8H Antibiotic * acetaminophen 650 mg Q6H PRN * vancomycin dosing pharmacy consult As Directed Objective Patient Vitals for the past 24 hrs: BP Temp Temp src Pulse Resp SpO2 O2 Device O2 Flow Rate (l/min) 08/26/21 0700 105/66 -- -- 65 20 96 % -- -- 08/26/21 0600 116/65 -- -- 65 23 97 % -- -- 08/26/21 0500 102/65 -- -- 64 19 97 % -- -- 08/26/21 0400 102/71 97.9 ???F (36.6 ???C) Oral 63 20 98 % Nasal cannula 3 08/26/21 0300 113/67 -- -- 69 21 97 % -- -- 08/26/21 0200 100/56 -- -- 73 24 93 % -- -- 08/26/21 0100 106/66 -- -- 72 22 97 % -- -- 08/26/21 0000 124/70 -- -- 82 20 96 % Nasal cannula 3 08/25/21 2356 112/65 -- -- 86 20 95 % -- -- 08/25/212352 114/78 -- -- 81 25 96 % -- -- 08/25/210 107/62 -- -- 71 23 97 % -- -- 08/25/210 -- 97.5 ???F (36.4 ???C) Oral -- -- -- -- -- 08/25/21 2300 102/57 -- -- 76 27 95 % -- -- 08/25/210 100/63 -- -- 76 27 96 % -- -- 08/25/21 2100 98/60 -- -- 75 30 97 % -- -- 08/25/211999 115/70 97.7 ???F (36.5 ???C) Oral 83 27 97 % Nasal cannula 3 08/25/21 1900 130/70 -- -- 80 19 96 % -- 3 08/25/21 1845 121/66 -- -- 76 25 98 % -- -- 08/25/21 1810 98/64 98 ???F (36.7 ???C) Oral 86 24 98 % Nasal cannula 5 08/25/21 1550 134/66 -- -- 77 (!) 24 100 % Nasal cannula 08/25/21 1545 143/68 -- -- 75 (!) 22 99 % Nasal cannula 5 08/25/21 1540 134/69 -- -- 74 (!) 23 99 % Nasal cannula 08/25/21 1535 139/70 -- -- 76 (!) 23 99 % Nasal cannula 08/25/21 1519 149/75 -- -- 78 (!) 28 100 % Nasal cannula 08/25/21 1517 153/75 -- -- 80 (!) 29 99 % Nasal cannula 08/25/21 1202 -- -- -- 79 (!) 29 97 % -- -- 08/25/21 1200 122/63 -- -- -- -- -- -- -- 08/25/21 1101 120/64 -- -- 80 (!) 22 95 % Nasal cannula 08/25/21 0940 -- -- -- 78 (!) 27 93 % -- -- 08/25/21 0938 -- -- -- 81 (!) 29 94 % -- -- 08/25/21 0830 112/61 -- -- 77 (!) 27 -- -- -- Ins AND Outs Admission Weight Weight: 180 lb (81.6 kg) Today's Weight Weight: 205 lb 0.4 oz (93 kg) BMI 28.6 Change in Weight: Current value is 205.0 lb (92.999 kg) on 08/26/2021 at 0600 +2.2 lb (1.000 kg) (1.09 %) from 202.8 lb (91.999 kg) on 08/25/2021 at 1810 (previous value) +25.0 lb (11.352 kg) (13.90 %) from 180.0 lb (81.647 kg) on 08/25/2021 at 1637 (first value for this admission) Intake/Output Summary (Last 24 hours) at 08/26/2021 0736 Last data filed at 08/26/2021 0603 Gross per 24 hour Intake 735 ml Output 1390 ml Net -655 ml In: 735 (7.9 mL/kg) [I.V.:725 (0.3 mL/kg/hr)] Out: 1390 (14.9 mL/kg) [Urine:1240 (0.6 mL/kg/hr); Drainage:150] Net: -655 Weight: 93 kg Peripheral IV Access: 08/25/21 0523 20 gauge Left Antecubital (Active) Site Assessment WNL;Dressing intact 08/26/21 0400 Infusion Status Port #1 Capped;Patent 08/26/21 0400 Number of days: 1 Peripheral IV Access: 08/25/21 1328 Right Forearm (Active) $ Lines: $ IV Start (procedure) 08/25/21 1328 Site Assessment WNL;Dressing intact 08/26/21 0400 Infusion Status Port #1 Capped;Patent (more content not included)...[employer] [id number] NoteMedicine Intensive Care Unit History and Physical Examination Fidel Palomino 86 year old [id number] lbs MRN/Room: [id number]/CP3-129/1 Admit Date: 08/25/2021 : 1935 PCP Contact: No primary care provider on file. Code Status: DNR Comfort Care Arrest- Do Not Intubate Source of Information: Patient Reason for presentation: Syncope Reason for admission: Drainage of R paracolic gutter fluid collection s/p recent appendectomy Reason for intensive care needs: O2 needs, bed shortage in SDU History of Present Illness: Fidel Palomino is a 86 year old male with a PMH of HTN, HLD, recent appendectomy (07/28/21, at [facility]) c/b illeus who presented to the hospital 08/25 with syncope/lightheadedness. States he had 2 syncopal episodes (once while peeing, another while standing at the sink shaving). Endorses a prodrome of feeling hot and dizzy, states he can tell when it's going to happen . Mentions he has had these episodes in the past, typically when getting an injection. Also states he has had poor po intake since his appendectomy d/t lack of appetite. Denies vomiting. Having regular BMs. Imaging at outside hospital showed a fluid collection in R paracolic gutter. Also had CT chest that was negative for PE, but showed small b/l pleural effusions. Transferred to [facility] for further management. IR placed intraabdominal drain for fluid collection 08/25. Recommended continued antibiotics with Vanc/Cefepime/Flagyl. Fluid cultures obtained from site. Ed Course: BP 132/64 Pulse 82 Temp 97.5 ???F (36.4 ???C) (Oral) Resp (!) 26 SpO2 93% Labs: CBC with leukocytosis 18.2, hgb 10.6, plts 267. BMP with Na 132, K 3.7, Bicarb 33, BUN/Cr 28/1.96. Mag 1.8. LFTs with elevated AST/ALT 83/125, elevated ALK phos 229. Albumin 1.7. PT/INR elevated 15/1.36. Lactate elevated 2.2. BNP elevated 321. Imaging: CTA without PE, moderate R and small L pleural effusion, small upper abdominal ascites. Intervention: Given 500cc bolus LR. Past Medical History: Past Medical History: Diagnosis Date * HLD (hyperlipidemia) * HTN (hypertension) Social History: Social History Tobacco Use * Smoking status: Former Smoker * Smokeless tobacco: Not on file Substance Use Topics * Alcohol use: Yes Comment: social * Drug use: Never Surgical history: Review of patient's past surgical history indicates: APPENDECTOMY; Family History: No family history on file. Allergies: No Known Allergies Home Meds: No current facility-administered medications on file prior to encounter. Current Outpatient Medications on File Prior to Encounter Medication Sig Dispense Refill * hydrochlorothiazide (HYDRODIURIL) 25 MG tablet hydrochlorothiazide 25 mg tablet * losartan (COZAAR) 100 MG tablet losartan 100 mg tablet * aspirin (Aspirin 81) 81 MG chewable tablet 1 Tablet. * vitamin B-12 (CYANOCOBALAMIN) 100 MCG tablet Vitamin B12 1000mg daily * Apoaequorin (Prevagen) 10 MG CAPS as directed * atorvastatin (LIPITOR) 40 mg tablet atorvastatin 40 mg tablet * CARvedilol (COREG) 25 MG tablet carvedilol 25 mg tablet Review of Systems: Review of Systems Constitutional: Negative for chills and fever. HENT: Negative. Eyes: Negative. Respiratory: Negative for cough and shortness of breath. Cardiovascular: Positive for leg swelling. Negative for chest pain and palpitations. Gastrointestinal: Positive for abdominal pain (minimal, around drain site). Negative for constipation, nausea and vomiting. Genitourinary: Negative. Musculoskeletal: Negative for falls. Skin: Negative. Neurological: Positive for loss of consciousness. Negative for dizziness, focal weakness, seizures and headaches. Psychiatric/Behavioral: Negative for substance abuse. All other systems reviewed and are negative. Objective: Vital sign ranges over the past 24 hours (retrieved 08/25/2021 at 11:29 PM): Tmax (24 hours): 98 ???F (36.7 ???C) Pulse Av.3 Min: 74 Max: 88 Systolic (24hrs), Av , Min:98 , Max:153 Diastolic (24hrs), Av, Min:57, Max:75 MAP (mmHg) Av.6 mmHg Min: 68 mmHg Max: 88 mmHg Resp Av.4 Min: 19 Max: 30 SpO2 Av.1 % Min: 91 % Max: 100 % Patient Vitals for the past 24 hrs: BP Temp Temp src Pulse Resp SpO2 O2 Device O2 Flow Rate (l/min) 08/25/21 2300 102/57 -- -- 76 27 95 % -- -- 08/25/21 2200 100/63 -- -- 76 27 96 % -- -- 08/25/21 2100 98/60 -- -- 75 30 97 % -- -- 08/25/211999 115/70 97.7 ???F (36.5 ???C) Oral 83 27 97 % Nasal cannula 3 08/25/21 1900 130/70 -- -- 80 19 96 % -- 3 08/25/21 1845 121/66 -- -- 76 25 98 % -- -- 08/25/21 1810 98/64 98 ???F (36.7 ???C) Oral 86 24 98 % Nasal cannula 5 08/25/21 1550 134/66 -- -- 77 (!) 24 100 % Nasal cannula 5 08/25/21 1545 143/68 -- -- 75 (!) 22 99 % Nasal cannula 5 08/25/21 1540 134/69 -- -- 74 (!) 23 99 % Nasal cannula 5 08/25/21 1535 139/70 -- -- 76 (!) 23 99 % Nasal cannula 5 08/25/21 1519 149/75 -- -- 78 (!) 28 100 % Nasal cannula 08/25 (more content not included)...[employer] [id number] Note EXAMINATION: US CATH DRAINAGE PERITONEAL (MARIO) CLINICAL HISTORY: Rad Procedure required: = Drain placement for right paracolic gutter fluid collection,Right paracolic gutter fluid collection ASSOCIATED DIAGNOSIS: TECHNOLOGISTS NOTE: Student in procedure AW 10 f APD drain placement INTRA-PROCEDURE MEDS: Lidocaine local INFORMED CONSENT: Written informed consent was obtained. The procedure, risks, benefits, and alternatives were discussed. All questions were answered. TIMEOUT: Physician led timeout was conducted documenting correct patient, procedure, site, fire risk, antibiotics and allergies. COMPLICATIONS: None ESTIMATED BLOOD LOSS: Less than 10 mL TECHNIQUE: After the risks, benefits, and alternatives were explained to the patient, informed consent was obtained and a timeout was performed. The patient was positioned supine and a targeted ultrasound was performed demonstrating an elongated fluid collection containing heterogeneous mobile internal echoesin the right paracolic gutter measuring at least 2.7 x 8.3 x 5.3 cm.. The patient's overlying skin was marked. The patient's skin was then prepped and draped in the usual sterile fashion. Under ultrasound guidance, a 10 Malagasy self-retaining all-purpose drainage catheter was advanced into the collection using one step technique via a right anterolateral approach. Approximately 100 cc of foul-smelling greenish-ham opaque fluid was aspirated. The drainage catheter was then secured to the skin. The site was dressed in the usual aseptic fashion. The patient tolerated the procedure well without immediate complication. FINDINGS: Initial images identify the fluid collection within the right paracolic gutter. . Images made during the procedure demonstrate the catheter within the collection. Post procedure images fail to show complication. IMPRESSION: Technically successful ultrasound-guided placement of a 10 Malagasy pigtail catheter into right paracolic gutter abscess. MACRO: NoneThe [facility]01-25-2022 NotePOST- PROCEDURE NOTE Pre-procedure Diagnosis: Right abdominal fluid collection Post-procedure Diagnosis: Same Proceduralist: Dr. Hamilton, Dr. Tillman A TIME OUT was performed prior to the procedure using active communication to verify correct patient, procedure, and site: Yes Procedure Note: Technical successful placement of 10Fr pigtail drainage catheter into right abdominal fluid collection with removal of 100cc purulent fluid. Full report to follow in PACS/EPIC Imaging Complications: none Medications: Totals unavailable because the procedure time range is not set Specimens: Fluid sample obtained and sent with patient back to unit. Estimated Blood Loss: less than 5 cc Post Procedure Pain Ratin/10 Dr. Tillman was present for the critical portion of the procedure Jere Hamilton MD [facility]22 NoteMODIFIED HISTORY AND PHYSICAL: Procedure:Ultrasound guided abdominal drainage catheter placement Indication: Abdominal fluid collection No past medical history on file. Sleep Apnea: no Excessive Obesity: no Hepatic Disease: no Renal Disease: yes No past surgical history on file. Substance Abuse History: Social History Tobacco Use * Smoking status: Not on file * Smokeless tobacco: Not on file Substance Use Topics * Alcohol use: Not on file * Drug use: Not on file History Drug Use Not on file Current Facility-Administered Medications Medication Dose Route Frequency Last Rate Last Admin * vancomycin dosing pharmacy consult Other As Directed * cefepime (MAXIPIME) 2 GM/100ML in 100 mL ivpb 2,000 mg Intravenous Q24H Antibiotic * metronidazole in iso-osmotic sodium chloride 100 mL (FLAGYL) 500 MG in NS 100 mL ivpb 500 mg Intravenous Q8H Antibiotic No current outpatient medications on file. Allergies: Patient has no known allergies. PHYSICAL EXAM: Vital Signs: Blood pressure 153/75, pulse 80, temperature 97.5 ???F (36.4 ???C), temperature source Oral, resp. rate (!) 29, SpO2 99 %. Cardiovascular: Regular rate and rhythm Respiratory: Clear to auscultation bilaterally Procedure Body System: Abdomen Recent Labs: Result for specified components in the past 45 days Component Date/Time Result Units Hemoglobin 08/25/2021 6:40 PM 9.5 g/dL Hematocrit 08/25/2021 6:40 PM 28.8 % Platelet 08/25/2021 6:40 PM 236 K/uL PTT --- not found Protime 08/25/2021 10:10 AM 15.0 sec INR 08/25/2021 10:10 AM 1.36 FXAUN --- not found ANTIFXALMWHE --- not found Creatinine 08/25/2021 6:40 PM 1.63 mg/dL CONSCIOUS SEDATION ASSESSMENT: Plan for Sedation: Moderate Planned Medications: VERSED (midazolam) and fentanyl Other Agents: none ASA Classification: Class III: Individual with multiple system disease or well controlled major system disease. Disease status limits daily activity. Mallampati Airway Assessment: Unable to assess History of adverse reactions involving sedation/anesthesia: No patient or family history of adverse reaction PRE-PROCEDURE VERIFICATION Site of Procedure: right Site Marked pre-procedure: Yes Pre-Procedure Pain Ratin/10 Advanced Directives (Living will, health care power of defense attorney): none Code Status For This Procedure: Full Code Jere Hamilton MD [facility]The [facility]01-[facility]-2022 NoteAcute Care Surgery - Plan of Care Note 86 year old male with PMHx HTN, HLD, BPH, remote L inguinal hernia repair w/ mesh, appendectomy (07/28/2021 at [place]) c/b ileus presented to OSH with lightheadedness and transferred w/ bilateral pleural effusions and R paracolic gutter abdominal collection. Plan: -Admit to medicine for management of pulmonary effusions, UTI, DIONISIO -Plan for IR drain placement of fluid collection -Obtain cultures Assessment and plan to be discussed with Dr. Garcia. Denise Lincoln MD, MPH General Surgery PGY-1 ACS Consult: [phone] ACS Floor: [phone] Addendum Evaluated patient at bedside at approx. 1345. Patient was resting comfortably in bed. Tachypneic to 24, otherwise VSS. No conversational dyspnea on 4L oxygen via NC. Patient uses 2L O2 at home since discharge from last hospitalization earlier this month (08/2021), no home O2 use prior to this. Abdomen soft, tympanic on percussion, mildly tender in RLQ on palpation. Patient denies N/V, denies SOB. Vitals: 08/25/21 1550 BP: 134/66 Pulse: 77 Resp: (!) 24 Temp: SpO2: 100% Plan: - s/p IR intraabdominal drain placement for paracolic fluid collection - Continue antibiotics: cefepime, Flagyl, and vancomycin - Follow body fluid cultures - Rest of care per medicine Plan d/w Senior Resident, Dr. Celeste Escalante, and Attending Surgeon, Dr. JA. Garcia. Nura Sanchez MD General Surgery [facility]12-[facility] NoteCONSULTATION Consultation Date: 07-28-21 REASON FOR CONSULTATION: Acute appendicitis. HISTORY OF PRESENT ILLNESS: The patient is an 86 year-old man who presented to the ER with complaints of right lower quadrant abdominal pain. CT scan of the abdomen and pelvis was obtained that is consistent with acute appendicitis. As a result he presents for laparoscopic, possible open appendectomy. ALLERGIES: LIDOCAINE. MEDICATIONS: SEE MAR. SOCIAL HISTORY: Denies any alcohol use. FAMILY HISTORY: Noncontributory. VITALS: Temperature 99.2, heart rate 109, blood pressure 152/91, respiratory rate 20, 90% on 2 liters nasal cannula. BMI 28.7. REVIEW OF SYSTEMS: Ten systems were reviewed and negative except for as listed in the HPI. PHYSICAL EXAM: GENERAL:Afebrile, comfortable currently. HEENT:Normocephalic, atraumatic, PERRLA. EOMI. No otorrhea or rhinorrhea. Throat without exudate. Mucous membranes are moist. NECK:Supple, no lymphadenopathy, no JVD. Thyroid is not enlarged. CARDIOVASCULAR:Regular rate and rhythm without murmurs, rubs, or gallops. LUNGS:Clear to auscultation bilaterally. No wheezes, rhonchi, or crackles. ABDOMEN:Soft, nondistended. Positive right lower quadrant tenderness. No rebound or involuntary guarding. No hepatosplenomegaly. EXTREMITIES:Warm, no clubbing, cyanosis or edema. NEURO:CN's II-XII grossly intact. The patient is alert and oriented x3. ASSESSMENT:Acute appendicitis. PLAN:The patient will undergo a laparoscopic, possible open, appendectomy. The risks of the procedure including bleeding, infection, abscess formation and bowel perforation were discussed with the patient and he is willing to undergo the procedure. [facility] Signed and Approved by: DR GOYO VENTURA . 08/02/2021 10:29:00[facility]12-28-2021 NoteOPERATIVE NOTE OPERATION DATE: 07-28-21 ANESTHETIC: General. IV FLUIDS:Crystalloid 1,000 mL. PROFESSIONAL SYSTEM ADMINISTRATOR:JEAN Matthews PREOPERATIVE DIAGNOSIS:Acute appendicitis. POSTOPERATIVE DIAGNOSIS:Same. PROCEDURE NAME:Laparoscopic appendectomy. ESTIMATED BLOOD LOSS: Minimal. SPECIMENS:Appendix. DISPOSITION: The patient was extubated in the OR and taken to the PACU in fair condition. PROCEDURE: The patient was brought into the OR and placed supine on the OR table. After establishment of general endotracheal anesthesia the patient's abdomen was prepped and draped in a sterile fashion. An infraumbilical incision was made, the incision was carried down through the skin using sharp dissection and through the soft tissue using electrocautery Bovie until reaching the anterior rectus fascia. The fascia was scored in the midline and grasped with Kt clamps and elevated. #0 Vicryl stay sutures were placed, using blunt dissection the posterior fascia was opened and a 12 mm balloon Venita port was placed into the abdominal cavity, the abdominal cavity was insufflated with CO2 gas. Under direct laparoscopic visualization a 5 mm port was placed in the right upper quadrant and another 5 mm port was placed in the left lower quadrant. The patient was placed in Trendelenburg position in order to visualize the base of the appendix another 5 mm port had to be placed in the right upper quadrant. This port was then used to place a laparoscopic peanut to retract the small bowel out of the way of the base of the appendix. The base of the appendix was grasped and elevated. The defect in the mesoappendix was created with a curved dissector. The base of the appendix was transected using an endo SANDRA stapler. The mesoappendix was transected in a similar fashion. The appendix was placed in an EndoCatch bag and removed via the infraumbilical port. The port was replaced and the abdomen re insufflated with CO2 gas. The right lower quadrant was irrigated with normal saline and suctioned. All the 5 mm ports were removed, there was no evidence of any bleeding. The infraumbilical port was removed and the fascia was reapproximated using the previously placed stay sutures. All the wounds were anesthetized with 0.50% Marcaine. The skin was reapproximated using 4-0 Monocryl in a subcuticular fashion. The incisions were cleaned with normal saline and dried. TinCoBen was placed on both sides of the incisions and 1/2 inch Steri-Strips were placed along with dry sterile dressing. The patient was extubated in the OR and taken to the PACU in fair condition. [facility] Signed and Approved by: DR GOYO VENTURA . 08/02/2021 10:29:00[facility] complaint Narrative - Reported* FIDEL PALOMINO is here for an initial evaluation. * Reason for Visit: COPD, JOE,. * Appointment requested by: Ailyn Baez . 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- Primary documented in this encounter [facility] HealthcareEvaluation note* Diagnosis Edema of both lower extremities- Primary Type 2 diabetes mellitus without complication, without long-term current use of insulin (CMS/HCC) BMI 25.0-25.9,adult Chronic obstructive pulmonary disease, unspecified COPD type (CMS/HCC) Primary hypertension (CMS/HCC) Unspecified essential hypertension Obstructive sleep apnea, adult Leg swelling Swelling of limb Essential (primary) hypertension (CMS/HCC) Unspecified essential hypertension B12 deficiency 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 HealthcareHistory general Narrative - Reported* Type Description Date Medical History hypercholesterolemia Medical History Hypertension Surgical History appendicitis 2021 Hospitalization History Appendicitis [facility] [employer] Other History of Present illness Narrative* The patient states his hyperlipidemia has been under good control since the last visit. Comorbid Illnesses: hypertension. * Symptoms: denies chest pain, denies intermittent leg claudication, denies muscle pain and denies muscle weakness. Associated symptoms include no focal neurologic deficits and no memory loss. * Medications: the patient is adherent with his medication regimen. He denies medication side effects. The patient is doing well with his hyperlipidemia goals. * The patient presents for follow-up of essential hypertension. * Symptoms: denies impaired vision, denies dyspnea, denies chest pain, denies intermittent leg claudication and denies lower extremity edema. Associated symptoms include no headache, no focal neurologic deficits and no memory loss. Blood pressure control has been good. * Medications: the patient is adherent with his medication regimen. He denies medication side effects. * Disease Management: the patient is doing well with his blood pressure goals. [facility] Work Phone: History of Present illness Narrative* The patient is being seen for the subsequent annual wellness visit. * Past Medical, Surgical and Family History: reviewed and updated in chart. * Interval History: Patient has not been hospitalized previously. * Medications and Supplements: Review of all medications by a prescribing practitioner or clinical pharmacist (such as prescriptions, OTCs, herbal therapies and supplements) documented in the medical record. * No, the patient is not using opioids. * Health Risk Assessment:. Paper HRA completed by patient and scanned into chart. * Patient Self Assessment of Health Status: good. * Tobacco use: Non-User * Alcohol use: Non-User * Illicit drug use: Non-User * Current diet: well balanced diet, does consume adequate fluids and does consume caffeine. * Exercise Frequency: regularly. * Depression/Suicide Screening: . * During the past 2 weeks, the patient has not felt down, depressed or hopeless. * During the past 2 weeks, the patient has not felt little interest or pleasure in doing things. * Hearing Impairment: Patient has slight hearing impairment. * Cognitive Impairment: No cognitive impairment observed. * Bathing: performs independently. * Dressing: performs independently. * Walking: performs independently. * Toileting: performs independently. * Feeding: performs independently. * Personal Hygiene: performs independently. * Bowels: continent. * Bladder: continent. * Managing Finances: dependent. * Shopping: performs independently. * Managing Medications: needs assistance. * Housework / Basic Home Maintenance: performs independently. * Handling Transportation: performs independently. * Preparing Meals: performs independently. * Using the Telephone/ Communication Devices: performs independently. * Falls Risk Screening:. FIDEL has not fallen in the last 6 months. * Home safety risk factors: loose rugs. * Advance directives:. Advanced Care Planning discussed and documented advance care plan or surrogatedecision maker documented in the medical record. Patient has living will. Patient has healthcare POA. * Patient's End of Life Decisions: End of life decisions were reviewed with the patient. * The patient states his hyperlipidemia has been under good control since the last visit. Comorbid Illnesses: hypertension. * Symptoms: denies chest pain, denies intermittent leg claudication, denies muscle pain and denies muscle weakness. Associated symptoms include no focal neurologic deficits and no memory loss. * Medications: the patient is adherent with his medication regimen. He denies medication side effects. The patient is doing well with his hyperlipidemia goals. * The patient presents for follow-up of essential hypertension. * Symptoms: denies impaired vision, denies dyspnea, denies chest pain, denies intermittent leg claudication and denies lower extremity edema. Associated symptoms include no headache, no focal neurologic deficits and no memory loss. Blood pressure control has been good. * Medications: the patient is adherent with his medication regimen. He denies medication side effects. * Disease Management: the patient is doing well with his blood pressure goals. [facility] Work Phone: Summary Purpose Family History No Family History Records FoundUnknown Family Member Name Dates Details : Mother, Father, Si ster Status:Active Family history of myocardial infarction: Mother(V17.3, Z82.49) Status:Active Old age: Father Status:Active Family history of blood dysc rasia: Brother(V18.3, Z83.2) Status:Active Family history of malignant neoplasm: Sister(V16.9, Z80.9) Status:Active Family history of diabetes m ellitus: Brother(V18.0, Z83.3) Status:Active Family history of dementia: Sister(V17.2, Z81.8) Status:Active Family history of epilepsy: Sister(V17.2, Z82.0) Status:Active Unknown Family Member Name Dates Details : Mother, Father, Si ster Status:Active Family history of myocardial infarction: Mother(V17.3, Z82.49) Status:Active Old age: Father Status:Active Family history of blood dysc rasia: Brother(V18.3, Z83.2) Status:Active Family history of malignant neoplasm: Sister(V16.9, Z80.9) Status:Active Family history of diabetes m ellitus: Brother(V18.0, Z83.3) Status:Active Family history of dementia: Sister(V17.2, Z81.8) Status:Active Family history of epilepsy: Sister(V17.2, Z82.0) Status:Active Unknown Family Member Name Dates Details : Mother, Father, Si ster Status:Active Family history of myocardial infarction: Mother(V17.3, Z82.49) Status:Active Old age: Father Status:Active Family history of blood dysc rasia: Brother(V18.3, Z83.2) Status:Active Family history of malignant neoplasm: Sister(V16.9, Z80.9) Status:Active Family history of diabetes m ellitus: Brother(V18.0, Z83.3) Status:Active Family history of dementia: Sister(V17.2, Z81.8) Status:Active Family history of epilepsy: Sister(V17.2, Z82.0) Status:Active Unknown Family Member Name Dates Details : Mother, Father, Si ster Status:Active Family history of myocardial infarction: Mother(V17.3, Z82.49) Status:Active Old age: Father Status:Active Family history of blood dysc rasia: Brother(V18.3, Z83.2) Status:Active Family history of malignant neoplasm: Sister(V16.9, Z80.9) Status:Active Family history of diabetes m ellitus: Brother(V18.0, Z83.3) Status:Active Family history of dementia: Sister(V17.2, Z81.8) Status:Active Family history of epilepsy: Sister(V17.2, Z82.0) Status:Active Unknown Family Member Name Dates Details Family history of epilepsy: Sister(V17.2, Z82.0) Status:Active Family history of dementia: Sister(V17.2, Z81.8) Status:Active Family history of diabetes m ellitus: Brother(V18.0, Z83.3) Status:Active Family history of malignant neoplasm: Sister(V16.9, Z80.9) Status:Active Family history of blood dysc rasia: Brother(V18.3, Z83.2) Status:Active Old age: Father Status:Active Family history of myocardial infarction: Mother(V17.3, Z82.49) Status:Active : Mother, Father, Si ster Status:Active Unknown Family Member Name Dates Details : Mother, Father, Si ster Status:Active Family history of myocardial infarction: Mother(V17.3, Z82.49) Status:Active Old age: Father Status:Active Family history of blood dysc rasia: Brother(V18.3, Z83.2) Status:Active Family history of malignant neoplasm: Sister(V16.9, Z80.9) Status:Active Family history of diabetes m ellitus: Brother(V18.0, Z83.3) Status:Active Family history of dementia: Sister(V17.2, Z81.8) Status:Active Family history of epilepsy: Sister(V17.2, Z82.0) Status:Active Unknown Family Member Name Dates Details : Mother, Father, Si ster Status:Active Family history of myocardial infarction: Mother(V17.3, Z82.49) Status:Active Old age: Father Status:Active Family history of blood dysc rasia: Brother(V18.3, Z83.2) Status:Active Family history of malignant neoplasm: Sister(V16.9, Z80.9) Status:Active Family history of diabetes m ellitus: Brother(V18.0, Z83.3) Status:Active Family history of dementia: Sister(V17.2, Z81.8) Status:Active Family history of epilepsy: Sister(V17.2, Z82.0) Status:Active Advance Directives No Advanced Directives Records FoundNo Advanced Directives Records FoundNo Advanced Directives Records FoundNo Advanced Directives Records FoundNo Advanced Directives Records FoundNo Advanced Directives Records FoundNo Advanced Directives Records FoundNo Advanced Directives Records Found Chief Complaint Mr. FIDEL PALOMINO 86 year male is here today to establish care. Previous Dr. Seaman in [facility] last seen 08/2021. He was recently released from [facility] on 08/28/2021 DX with infection from Appendix surgery.AWV; 1 month follow up on blood work results.* FIDEL PALOMINO is here for a follow-up visit. * Appointment requested by: Ailyn Baez . Additional Source Comments (unrecognized sect ion and content) No Status Records FoundNo Status Records FoundNo Status Records FoundNo Status Records FoundNo Status Records FoundNo Status Records FoundNo Status Records FoundNo Status Records Found INFORMATION SOURCE (unrecogn ized section and content) DATE CREATED AUTHOR 08/25/2021 [facility] DATE CREATED AUTHOR AUTHOR'S ORGANIZ ATION 10/23/2021 [employer] DATE CREATED AUTHOR AUTHOR'S ORGANIZ ATION 12/13/2021 [facility] DATE CREATED AUTHOR AUTHOR'S ORGANIZ ATION 04/08/2022 [employer] DATE CREATED AUTHOR AUTHOR'S ORGANIZ ATION 10/08/2022 [facility] DATE CREATED AUTHOR AUTHOR'S ORGANIZ ATION 02/08/2023 [facility] DATE CREATED AUTHOR AUTHOR'S ORGANIZ ATION 05/04/2023 [facility] DATE CREATED AUTHOR AUTHOR'S ORGANIZ ATION 09/28/2023 [facility] EPIC REASON FOR VISIT (unrecogniz ed section and content) RIGHT LOWER BACK PAIN Care Teams (unrecognized sec tion and content) Nurse Practitioner Adult Relationship Specialty Start Date End Date Ailyn Baez MD [address] [place] [address] PCP - General Family Medicine 02/23/23 Annette Whitfield NP [address] [place] [id number] Nurse Practitioner Family Medicine 08/01/22 Nurse Practitioner Adult Relationship Specialty Start Date End Date Ailyn Baez MD [address] [place] [address] PCP - General Family Medicine 02/23/23 Annette Whitfield NP [address] [place] [id number] Nurse Practitioner Family Medicine 08/01/22 Nurse Practitioner Adult Relationship Specialty Start Date End Date Ailyn Baez MD [address] [place] [address] PCP - General Family Medicine 02/23/23 Annette Whitfield NP [address] [place] [phone] Nurse Practitioner Family Medicine 08/01/22 FOR RECORDS PERTAINING TO PATIENTS WHO ARE OR HAVE BEEN ENROLLED IN A CHEMICAL DEPENDENCY/SUBSTANCEABUSE PROGRAM, SOME INFORMATION MAY BE OMITTED. This clinical summary was aggregated from multiple sources. Caution should be exercised in using it in the provision of clinical care. This summary normalizes information from multiple sources, and as a consequence, information in this document may materially change the coding, format and clinical context of patient data. In addition, data may be omitted in some cases. CLINICAL DECISIONS SHOULD BE BASED ON THE PRIMARY CLINICAL RECORDS. [facility]. provides no warranty or guarantee of the accuracy or completeness of information in this document.
[2023-09-30 12:32] LABS: Anion Gap 8.6; BUN Creatinine Ratio 18.7; Calcium 8.6 mg/dL (8.5-10.1); Carbon Dioxide 33.9 mmol/L (21.0-32.0); Chloride 100 mmol/L (98-107); Estimated GFR (African America >60 (>=60); Estimated GFR (Non-African Ame >60 (>=60); Glucose 189 mg/dL (74-106); Potassium 3.5 mmol/L (3.5-5.1); Sodium 139 mmol/L (136-145)
== END 2023-09-30 10:50 | disposition home or self-care (01) ==
LOC: LAB 10:51
PROVIDERS: PCP Nurse Practitioner; Visit Provider Nurse Practitioner
DX: R60.0 Localized edema (principal)
CPT/HCPCS: 36415; 80048

== ENCOUNTER 2024-03-19 11:38 | Outpatient (OUT) | payer MEDICARE, BC, SELFPAY ==
--- OUTSIDE RECORDS SUMMARY | 2024-03-19 12:01 | XMS_ITS | CCD ---
Author Organization [facility] CliniSynd Care Team Providers Care Dietary Manager Name Role Phone PAY, DR STUART Attending Unavailable PAY, DR STUART Admitting Unavailable ROSS, ALEX Primary Care Unavailable PAY, DR STUART Consulting Unavailable SAMSA, URBANO Attending Unavailable SAMSA, URBANO Admitting Unavailable ROSS, ALEX Primary Care Unavailable RISHI, DR OMKAR Solorio Consulting Unavailable WIECETj, DR GOYO Arizmendi Procedure Practitioner Unav mayra REYES, DR RM Consulting Unavailable KERN, DR KENAN Bernal Consulting Unavailable SAMSA, URBANO Procedure Practitioner Unavailab apolinar DUCKWORTH, DR ZHANE Oliveira Consulting Unavailable WIYU, DR GOYO Arizmendi Consulting Unavailable ZIEBER, DR ROBERT Solorio Consulting Unavailable NADERER, DR HELENA Mendes Consulting Unavailable KATSTEPHANIE FAROOQ Consulting Unavailable SAMSA, URBANO Consulting Unavailable ROSS, ALEX Consulting Unavailable CHASE, SUPA Consulting Unavailable AHMAUREEN, TIFFANI Consulting Unavailable CEZAR SOARES Consulting Unavailable Edward Sanchez Consulting Unavailable Gerardo Espinosa Consulting Unavailable Dominic Steve Consulting Unavailable SWAPNA RANDHAWA Consulting Unavailable ROSS, ALEX Primary Care Unavailable ROSS, ALEX Consulting Unavailable ROSS, ALEX Attending Unavailable ROSS, ALEX Admitting Unavailable ROSS, ALEX Consulting Unavailable ROSS, ALEX Primary Care Unavailable ROSS, ALEX Attending Unavailable ROSS, ALEX Admitting Unavailable REQUEST, NONE LISTED Admitting Unavaila ble ROSS, ALEX Primary Care Unavailable REQUEST, NONE LISTED Consulting Unavaila ble REQUEST, NONE LISTED Attending Unavaila ble ALEX SEAMAN Consulting Unavailable ROSS, ALEX Primary Care Unavailable REQUEST, NONE LISTED Attending Unavaila ble REQUEST, NONE LISTED Admitting Unavaila ble REQUEST, NONE LISTED Consulting Unavaila ble ARI, DR GARCIA Attending Unavailable ARI, DR GARCIA Admitting Unavailable ROSS, ALEX Primary Care Unavailable ARI, DR GARCIA Consulting Unavailable Gerardo Brady Consulting Unavailable Ailyn Baez Unavailable Unavailable Unavailable PROVIDER, UNKNOWN Attending Unavailable TUKATLYN, NA Referring Unavailable EFFRON, ZHANE Admitting Unavailable TUPA, NA Referring Unavailable EFFRON, ZHANE Admitting Unavailable PROVIDER, UNKNOWN Attending Unavailable PROVIDER, UNKNOWN Attending Unavailable PROVIDER, UNKNOWN Admitting Unavailable TUPA, NA Referring Unavailable PROVIDER, UNKNOWN Attending Unavailable PROVIDER, UNKNOWN Admitting Unavailable TUPA, NA Referring Unavailable PROVIDER, UNKNOWN Attending Unavailable PROVIDER, UNKNOWN Admitting Unavailable TUPA, NA Referring Unavailable PROVIDER, UNKNOWN Admitting Unavailable TUPA, NA Referring Unavailable CONSULT, IP SURGERY TRIAGE Consulting Unava ilable NATHAN GUERRERO Attending Unavailable NAHID, ZHANE Admitting Unavailable REQUEST, IP PHYSICAL THERAPY SERVICE [...] Unavailable Ailyn Baez MD Primary Care Provider Nahid NUCLEAR WEAPONS SPECIALIST, Annette Unavailable NAHID ANNETTE Attending Unavailable EDGAR, ANNALEE A Attending Unavailable TIMMIS, SASCHA H Referring Unavailable EDGAR, ANNALEE A Attending Unavailable AICHHOLZ, ANNETTE Attending Unavailable EDGAR, ANNALEE A Attending Unavailable EDGAR, ANNALEE A Attending Unavailable AICHHOLZ, ANNETTE Attending Unavailable TIMMIS, SASCHA H Attending Unavailable AICHHOLZ, ANNETTE Attending Unavailable AICHHOLZ, ANNETTE Attending Unavailable Allergies Allergy Classification Reported Allergen(s) Allergy Type Date of Onset Reaction(s) Facility (1 source) Lidocaine Drug Allergy 08-30-2013 [facility] Repository Medications Current Medications Medication Drug Class(es) Dates Sig (Normalized) Sig (Original) aspirin 81 mg delayed release oral tablet (14 sources) Platelet Aggregation Inhibitor, Nonsteroidal Anti-inflammatory Drug Start: 09-12-2023 End: 12-11-2023 take 1 tablet by mouth once daily aspirin 81 MG EC tablet Indications: 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 (CMS/HCC) Take 1 [...] hypertension (CMS/HCC) , 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 (CMS/HCC) Take 1 [...] Active Start: 10-07-2021 take 1 capsule by [facility] once daily Potassium Chloride ER 10 MEQ [...] while sleeping 0 Active polyethylene glycol 3350 42706 mg powder for oral solution (7 sources) [...] sources) Coronary atherosclerosis; Translations: [Coronary atherosclerosis of qawalangin coronary artery] Onset: 08-24-2022 Chronic Diabetes mellitus [...] 08-24-2022 04-25-2023 Episodic Other aftercare (1 source) 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; Translations: [LONG-TERM CURRENT USE OF ASPIRIN] Onset: 08-25-2021 Episodic Other aftercare (1 source) Other intermediate (current) drug therapy; Translations: [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 DRUG THERAPY] Onset: 08-25-2021 Episodic Other [...] Range Facility Office Visiton 04-26-2023 Follow-up visit [id number] Christiana Palomino F 1935 [facility] Provider Department Center 04/26/2023 271-RAMSEY JIMENEZ CARD [facility] No family history on file Level of Service:35649 [place] OFFICE/OUTPATIENT ESTABLISHED LOW MDM 20-29 MIN Normal [facility] Office Visiton 10-29-2022 Follow-up visit [id number] Christiana Palomino n F 1935 Date Provider Department Center 10/29/2022 120-BEATRIZ ARAMBULA CARD [facility] No family history on file Level of Service:98512 [place] OFFICE/OUTPATIENT ESTABLISHED MOD MDM 30-39 MIN Reason for Visit and Comments: Follow-up [536622] - 6 mo f/u - no complaints Normal [facility] Office Visit (Family Medicin e)on 04-07-2022 Follow-up [...] disease) (496) (J44.9) 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 Normal [facility] BNPon 12-08-2021 Natriuretic peptide B (Bld) [Mass/Vol] 63 pg/mL Normal 0 - 99 [facility] [place] on above: Result Comment: . <1 00 pg/mL - Heart failure unlikely 100-299 pg/mL - Intermediate probability of acute heart . failure exacerbation. Correlate with clinical . context and patient history. >=300 pg/mL - Heart Failure likely. Correlate with clinical . context and patient history. BNP testing is performed using different testing methodology at [facility] than at other [facility]. Direct result comparisons should only be made within the same method. Performed By: #### B NP2 #### [address] [address] CBC AND DIFFERENTIALon 12-08 % AUTOMATED IMMATURE GRAN 0.3 % Normal 0.0 - 0.9 [facility] Comment on above: Result Comment: Mamie ture Granulocyte Count (IG) includes promyelocytes, myelocytes and metamyelocytes but does not include bands. Percent differential counts (%) should be interpreted in the context of the absolute cell counts (cells/L). Performed By: #### C BCDF #### [address] [address] Basophils (Bld) [#/Vol] 0.09 10*3/uL Normal 0.00 - 0.10 [facility] Comment on above: Performed By: #### C BCDF #### [address] [address] Basophils/100 WBC (Bld) 1.3 % Normal 0.0 - 2.0 [facility] Comment on above: Performed By: #### C BCDF #### [address] [address] Eosinophils (Bld) [#/Vol] 0.39 10*3/uL Normal 0.00 - 0.40 [facility] Comment on above: Performed By: #### C BCDF #### [address] [address] Eosinophils/100 WBC (Bld) 5.6 % Normal 0.0 - 6.0 [facility] Comment on above: Performed By: #### C BCDF #### [address] [address] Erythrocyte distribution width (RBC) [Ratio] 13.2 % Normal 11.5 - 14.5 [facility] Comment on above: Performed By: #### C BCDF #### [address] [address] Hematocrit (Bld) [Volume fraction] 42.3 % Normal 41.0 - 52.0 [facility] Comment on above: Performed By: #### C BCDF #### [address] [address] Hemoglobin (Bld) [Mass/Vol] 13.2 g/dL Low 13.5 - 17.5 [facility] Comment on above: Performed By: #### C BCDF #### [address] [address] Lymphocytes (Bld) [#/Vol] 1.98 10*3/uL Normal 0.80 - 3.00 [facility] Comment on above: Performed By: #### C BCDF #### [address] [address] Lymphocytes/100 WBC (Bld) 28.4 % Normal 13.0 - 44.0 [facility] Comment on above: Performed By: #### C BCDF #### [address] [address] MCHC (RBC) [Mass/Vol] 31.2 g/dL Low 32.0 - 36.0 [facility] Comment on above: Performed By: #### C BCDF #### [address] [address] MCV (RBC) [Entitic vol] 95 fL Normal 80 - 100 [facility] Comment on above: Performed By: #### C BCDF #### [address] [address] Monocytes (Bld) [#/Vol] 0.69 10*3/uL Normal 0.05 - 0.80 [facility] Comment on above: Performed By: #### C BCDF #### [address] [place] [address] Monocytes/100 WBC (Bld) 9.9 % Normal 2.0 - 10.0 [facility] Comment on above: Performed By: #### C BCDF #### [address] [place] [address] Neutrophils (Bld) [#/Vol] 3.79 10*3/uL Normal 1.60 - 5.50 [facility] Comment on above: Performed By: #### C BCDF #### [address] [address] Neutrophils/100 WBC (Bld) 54.5 % Normal 40.0 - 80.0 [facility] Comment on above: Performed By: #### C BCDF #### [address] [address] NUCLEATED RBC 0.0 /100 WBC Normal 0.0 - 0.0 [facility] Comment on above: Performed By: #### C BCDF #### [address] [address] Platelets (Bld) [#/Vol] 148 10*3/uL Low 150 - 450 [facility] Comment on above: Performed By: #### C BCDF #### [address] [address] RBC 4.43 x10E12/L Low 4.50 - 5.90 [facility] Comment on above: Performed By: #### C BCDF #### [address] [address] WBC (Bld) [#/Vol] 7.0 10*3/uL Normal 4.4 - 11.3 [facility] Comment on above: Performed By: #### C BCDF #### [address] [address] CHEST 2 VIEW PA AND LATon CHEST 2 VIEW PA AND LAT Patient Name: FIDEL PALOMINO STUDY: TH CHEST 2 VIEW PA AND LAT; 12/08/2021 9:30 am INDICATION: for b/l effusion size J90: Pleural effusion. COMPARISON: None. ACCESSION NUMBER(S): [id number] ORDERING CLINICIAN: NARENDRA NEWTON FINDINGS: CHEST/LUNGS: The [...] Electronically signed by: MISSY ABREU MD Normal [facility] COMPREHENSIVE PANELon 2021 Albumin [Mass/Vol] 3.9 g/dL Normal 3.4 - 5.0 [facility] Comment on above: Performed By: #### C MP #### [address] [address] ALP [Catalytic activity/Vol] 106 U/L Normal 33 - 136 [facility] Comment on above: Performed By: #### C MP #### [address] [address] ALT [Catalytic activity/Vol] 18 U/L Normal 10 - 52 [facility] Comment on above: Result Comment: Anabelle ents treated with Sulfasalazine may generate falsely decreased results for ALT. Performed By: #### C MP #### [address] [address] Anion gap [Moles/Vol] 11 mmol/L Normal 10 - 20 [facility] Comment on above: Performed By: #### C MP #### [address] [address] AST [Catalytic activity/Vol] 19 U/L Normal 9 - 39 [facility] Comment on above: Performed By: #### C MP #### [address] [place] [address] Bilirubin [Mass/Vol] 0.5 mg/dL Normal 0.0 - 1.2 [facility] Comment on above: Performed By: #### C MP #### [address] [place] [address] Calcium [Mass/Vol] 9.3 mg/dL Normal 8.6 - 10.3 [facility] Comment on above: Performed By: #### C MP #### [address] [place] [address] Chloride [Moles/Vol] 98 mmol/L Normal 98 - 107 [facility] Comment on above: Performed By: #### C MP #### [address] [place] [address] Creatinine [Mass/Vol] 0.75 mg/dL Normal 0.50 - 1.30 [facility] Comment on above: Performed By: #### C MP #### [address] [place] [address] GFR/1.73 sq M.predicted among non-blacks MDRD (S/P/Bld) [Vol rate/Area] 89 mL/min/{1.73_m2} Normal >90 [facility] Comment on above: Result Comment: CALC ULATIONS OF ESTIMATED GFR ARE PERFORMED USING THE 2020 CKD-EPI STUDY REFIT EQUATION WITHOUT THE RACE VARIABLE FOR THE IDMS-TRACEABLE CREATININE METHODS. https://jasn.asnjournals.org/content/early/ASN.11696604 88 Performed By: #### C MP #### [address] [place] [address] Glucose [Mass/Vol] 130 mg/dL High 74 - 99 [facility] Comment on above: Performed By: #### C MP #### [address] [place] [address] HCO3 (Bld) [Moles/Vol] 32 mmol/L Normal 21 - 32 [facility] Comment on above: Performed By: #### C MP #### [address] [place] [address] Potassium [Moles/Vol] 3.6 mmol/L Normal 3.5 - 5.3 [facility] Comment on above: Performed By: #### C MP #### [address] [place] [address] Protein [Mass/Vol] 7.3 g/dL Normal 6.4 - 8.2 [facility] Comment on above: Performed By: #### C MP #### [address] [address] Sodium [Moles/Vol] 137 mmol/L Normal 136 - 145 [facility] Comment on above: Performed By: #### C MP #### [address] [address] Urea nitrogen [Mass/Vol] 20 mg/dL Normal 6 - 23 [facility] Comment on above: Performed By: #### C MP #### [address] [address] Complete Blood Count + Diffe rentialon 05--2021 Basophils/100 WBC (Bld) 1.3 % 0.0 - 2.0 [facility] [place] [address] Work Phone: Erythrocyte distribution width (RBC) [Ratio] 13.2 % See Below [place] [address] Work Phone: Comment on above: Reference Range: 11. 5 - 14.5 Hematocrit (Bld) [Volume fraction] 42.3 % See Below [place] [address] Work Phone: Comment on above: Reference Range: 41. 0 - 52.0 Hemoglobin (Bld) [Mass/Vol] 13.2 g/dL below low threshold See Below [place] [address] Work Phone: Comment on above: Reference Range: 13. 5 - 17.5 Lymphocytes/100 WBC (Bld) 28.4 % See Below [place] [address] Work Phone: Comment on above: Reference Range: 13. 0 - 44.0 MCHC (RBC) [Mass/Vol] 31.2 g/dL below low threshold See Below -Pulmonary [place] [address] Work Phone: Comment on above: Reference Range: 32. 0 - 36.0 MCV (RBC) [Entitic vol] 95 fL 80 - 100 -Pulmonary [place] [address] Work Phone: Monocytes/100 WBC (Bld) 9.9 % 2.0 - 10.0 -Pulmonary [place] [address] Work Phone: Neutrophils/100 WBC (Bld) 54.5 % See Below [facility] [place] [address] Work Phone: Comment on above: Reference Range: 40. 0 - 80.0 Platelets (Bld) [#/Vol] 148 10*3/uL below low threshold 150 - 450 [facility] [place] [address] Work Phone: RBC (Bld) [#/Vol] 4.43 {x10E12/L} below low threshold See Below [facility] [place] [address] Work Phone: Comment on above: Reference Range: 4.5 0 - 5.90 WBC (Bld) [#/Vol] 7.0 10*3/uL 4.4 - 11.3 -Pul monary [place] [address] Work Phone: Complete Blood Count + Differential 0.09 {x10E9/L} See Below [facility] [place] [address] Work Phone: Comment on above: Reference Range: 0.0 0 - 0.10 Complete Blood Count + Differential 0.39 {x10E9/L} See Below [facility] [place] [address] Work Phone: Comment on above: Reference Range: 0.0 0 - 0.40 Complete Blood Count + Differential 0.69 {x10E9/L} See Below [place] [address] Work Phone: Comment on above: Reference Range: 0.0 5 - 0.80 Complete Blood Count + Differential 1.98 {x10E9/L} See Below [place] [address] Work Phone: Comment on above: Reference Range: 0.8 0 - 3.00 Complete Blood Count + Differential 3.79 {x10E9/L} See Below [place] [address] Work Phone: Comment on above: Reference Range: 1.6 0 - 5.50 Complete Blood Count + Differential 5.6 % 0.0 - 6.0 [place] [address] Work Phone: Complete Blood Count + Differential 0.3 % 0.0 - 0.9 [place] [address] Work Phone: Comment on above: Immature Granulocyte Count (IG) includes promyelocytes, myelocytes and metamyelocytes but does not include bands. Percent differential counts (%) should be interpreted in the context of the absolute cell counts (cells/L). Complete Blood Count + Differential 0.0 {/100_WBC} 0.0 - 0.0 [place] [address] Work Phone: Follow Up (Pulmonary Medicin e)on [...] pulmonary disease); CHELSEA = N; Sent To: [facility]; Last Updated By: System, Quippier; 12/08/2021 10:32:38 AM Brain Natriuretic Peptide BNP; [...] ABG; Status:Hold For - Scheduling; Requested for:08Dec2021; [place] [place]; Due:08Mar2022;Ordered ; For:COPD (chronic obstructive pulmonary disease); [...] By: Narendra Newton Performed: Order Comments: [facility] Due: 08Mar2022 Renew: Potassium Chloride ER 10 MEQ Oral Capsule Extended Release; TAKE 1 CAPSULE BY MOUTH EVERY DAY Rx By: Narendra Newton; Dispense: 30 Days ; #:30 Capsule; Refill: 3;For: HTN (hypertension); CHELSEA = N; Sent To: [facility]; Msg to Pharmacy: on days when you take lasix; Last Updated By: [employer]; 12/08/2021 10:33:53 AM Echocardiogram; Status:Hold For - Scheduling; Requested for:08Dec2021; Perform:[facility] ([place]); Due:08Mar2022;Ordered ; For:Shortness of breath at rest; Ordered By:Narendar Newton; Patient Discussion/Summary By signing my name [...] sleep study performed in the past at [facility] with use of a CPAP machine, however he could not tolerate wearing the sleep mask. Due to this, he is currently on 2L of supplementary oxygen while sleeping. He is able to perform all activities of daily living. He complains of an intermittent dry cough . He takes day time naps. He has a history of acute appendicitis and underwent appendectomy at [facility] in 07/2021 which was complicated by intra-abdominal infection leading to drainage at [facility] on August 25, 2021. . 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 [facility] and C hemistry - challengeon 12-08-2021 Albumin BCP dye [Mass/Vol] 3.9 g/dL 3.4 - 5.0 [facility] 170 Work Phone: ALP [Catalytic activity/Vol] 106 U/L 33 - 136 [place] [address] Work Phone: ALT With P-5'-P [Catalytic activity/Vol] 18 U/L 10 - 52 [place] [address] Work Phone: Comment on above: Patients treated wit h Sulfasalazine may generate falsely decreased results for ALT. Anion gap [Moles/Vol] 11 mmol/L 10 - 20 [facility] 170 Work Phone: AST With P-5'-P [Catalytic activity/Vol] 19 U/L 9 - 39 [facility] [place] [address] Work Phone: Bilirubin [Mass/Vol] 0.5 mg/dL 0.0 - 1.2 [facility] 170 Work Phone: Calcium [Mass/Vol] 9.3 mg/dL 8.6 - 10.3 -Pul monary [facility] 170 Work Phone: Chloride [Moles/Vol] 98 mmol/L 98 - 107 -Pulmonary [place] [address] Work Phone: CO2 [Moles/Vol] 32 mmol/L 21 - 32 -Pulmon brianna [place] [address] Work Phone: Creatinine [Mass/Vol] 0.75 mg/dL See Below [facility] [place] [address] Work Phone: Comment on above: Reference Range: 0.5 0 - 1.30 Glucose [Mass/Vol] 130 mg/dL above high threshold 74 - 99 [facility] 170 Work Phone: Potassium [Moles/Vol] 3.6 mmol/L 3.5 - 5.3 [facility] 170 Work Phone: Protein [Mass/Vol] 7.3 g/dL 6.4 - 8.2 [facility] 170 Work Phone: Sodium [Moles/Vol] 137 mmol/L 136 - 145 [place] [address] Work Phone: Urea nitrogen [Mass/Vol] 20 mg/dL 6 - 23 [place] [address] Work Phone: No Panel Informationon 12-08 89 {mL/min/1.73m2} >90 [place] [address] Work Phone: Comment on above: CALCULATIONS OF CHECO MATED GFR ARE PERFORMED USING THE 2020 CKD-EPI STUDY REFIT EQUATION WITHOUT THE RACE VARIABLE FOR THE IDMS-TRACEABLE CREATININE METHODS.https://jasn.asnjournals.org/content/early/ASN. 6803599716 63 pg/mL 0 - 99 [facility] 170 Work Phone: Comment on above: . <100 pg/mL - Heart failure [id number] pg/mL - Intermediate probability of acute heart. failure exacerbation. Correlate with clinical. context and patient history. >=300 pg/mL - Heart Failure likely. Correlate with clinical. context and patient history.BNP testing is performed using different testing methodology at [facility] than at other [facility]. Direct result comparisons should only be made within the same method. Radiologyon 12-08-2021 XR Chest 2 Views Please click on the link to view the study images Normal [facility] 170 Work Phone: Tobacco Screening.on 022 Fall risk assessment a) No falls within the last year [facility] 170 Work Phone: Tobacco use status CPHS b) No [facility] 170 Work Phone: Consult (Pulmonary Medicine) on [...] sleep study performed in the past at [facility] with use of a CPAP machine, however he could not tolerate wearing the sleep mask. Due to this, he is currently on 2L of supplementary oxygen while sleeping. He is able to perform all activities of daily living. He complains of an intermittent dry cough . He takes day time naps. He has a history of acute appendicitis and underwent appendectomy at [facility] in 07/2021 which was complicated by intra-abdominal infection leading to drainage at [facility] on August 25, 2021. . 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 During that hospitalization, he had a CT chest which shows bibasilar atelectasis associated with bilateral pleural effusion, right more than left. He was also found to be hypoxic at night over there leading to sleep study at [facility] which showed obstructive sleep apnea, however was [...] sleep study records and discharge summary from [facility]. We will get his CT chest uploaded on PACS Follow up in pulmonary clinic in 3 weeks Patient understands the importance of follow up with PMD for health care maintenance and general medical conditions. 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 Normal [employer] Tobacco Screening.on 022 Adult depression screening assessment No [facility] [employer] Phone: Fall risk assessment a) No falls within the last year [facility] [employer] Phone: Tobacco use status CPHS b) No [facility] Phone: Tobacco Screening. Large [facility] st Work Phone: Progress Noteson 09-21-2021 Entertainment Usher Authentication Interface Message Text Patient was identified by name and date of . Patient at risk for falls:No Falls Risk protocol implemented: N/A Normal The [facility] [facility] Telephone Encounteron 2021 Entertainment Usher Authentication Interface Message Text Called and spoke to regarding patient's drainage. stated that drainage is negligible and immeasurable above the amount she instills for a flush. She stated she will track drainage for upcoming appointment. 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 [facility]. He was recently released from [facility] on 08/28/2021 DX with infection from Appendix [...] no palpitatio (more content not included)... Normal [employer] Tobacco Screening.on 022 Adult depression screening assessment No [facility] [employer] Phone: Fall risk assessment a) No falls within the last year [facility] [employer] Phone: Tobacco use status CPHS b) No [facility] Phone: Tobacco Screening. Pediatric [facility] [employer] Phone: Telephone Encounteron 2021 Entertainment Usher Authentication Interface Message Text Notified Rubi calvo [facility] that Dr. Guerrero is willing to be the attending MD for home care. Normal The [facility] [facility] Telephone Encounteron 2021 Entertainment Usher Authentication Interface Message Text Situation: Speak with Provider, Question about following provider Background: Rubi from [facility] asked if Dr. Guerrero would follow patient for homecare. Rubi stated that Dr. Bhat would follow but she is a fellow and they need her attending as well. Assessment: n/a Recommendation: Please call Rubi at [phone] Normal The [facility] [facility] Discharge Planning Noteon Entertainment Usher Authentication Interface Message Text CM called and [...] once she has accepting facilities. NEAL Recinos, clinical social worker -Care Coordination Department Normal The [facility] [facility] Consultson 08-28-2021 Entertainment Usher FancyBoxation Interface Message Text Attestation signed by Goyo [...] file. Chief Complaint/Reason for Consult: Antibiotic abstract QAGAN TAYAGUNGIN/Hospital Course: This is a 86 year old year old male with history of HTN who presented to [facility] 08/25 as a transfer from [facility] for intra-abdominal fluid collection. Patient was recently hospitalized at [facility] 07/28-08/17 for abdominal pain s/p appendectomy c/b ileus. He was discharged home feeling well. He then developed dizziness and presyncope. He went back to [facility] ED and then sent him home. Since he continued to feel unwell, he then went to [facility] ED. They performed a CT abdomen/pelvis that showed a fluid collection in the right paracolic gutter. He was transferred to [facility] and IR placed a drain [...] * Influenza, Injectable, MDCK, Preservative Free, Quadrivalent (JPZ=045) 05/07/2020, 06/23/2021 * Moderna SARS-COV-2 (COVID-19) vaccine, mRNA, spike protein, LNP, preservative free, 100 mcg or 50 mcg dose (ZAF=353) 09/02/2020, 09/30/2020, 06/09/2021 REVIEW OF SYSTEMS: 10 point ROS performed which is otherwise negative unless noted in HPI. PHYSICAL EXAMINATION: Vital sign ranges over the past 24 hours (retrieved 08/28/2021 at 11:02 AM): Tmax (24 hours): 98.6 ???F (37 ???C) Pulse Av.8 Min: 67 Max: 95 Systolic (24hrs), Av , Min:100 , Max:156 Diastolic (24hrs (more content not included)... Normal The [facility] [facility] Progress Noteson 08-28-2021 Entertainment Usher Authentication Interface Message Text CASE MANAGEMENT CM received VM from [facility] at [phone], intake at [facility] regarding name of patient's PCP. CM checked charted, no name was available. CM contacted patient's who provided physician name of Pilo Baez out of [place], [place]. Patient has appointment with Dr. Baez 09/09/21. Patient's also stated [facility] contacted her and she provided the same PCP information for them as well. CM called Christina at [facility], however, she was not available at this time, CM left a VM pertaining to the new PCP information. Tavo DE JESUS, RN Inpatient Nursing Program DirectorLife Care Planner: [phone] ([phone]) Normal The [employer] Entertainment Usher Authentication Interface Message Text CASE MANAGEMENT CM aware from prior CM's note, patient needs home PT/OT arranged. Patient's spouse accepted [facility] for [facility]. This CM contacted [facility] health service at [phone] or [phone]. CM spoke to Christina at intake and faxed necessary notes to [phone]. [facility] to contact this CM tomorrow morning. Tavo DE JESUS, RN Inpatient Nursing Program DirectorLife Care Planner: [phone] ([phone]) Normal The [employer] Entertainment Usher Authentication Interface Message Text [facility] Pulmonary, Critical Care, AND Sleep Medicine [...] -- 81 22 100 % -- -- 08/27/212121 -- -- -- 78 27 100 [...] BUN Cr Ca Mg PO4 08/27/218 1.8 08/27/21 0418 134 4.0 94 33 11 149 25 [...] D/C home today to follow up with FILIPE Radford (new PCP). Carly Guerrero MD, MPH Division of Pulmonary, Critical Care, AND Sleep Medicine The [employer] System PIN [id number] Normal The [facility] [facility] BASIC METABOLIC PANELon 08-02 Anion gap [Moles/Vol] 11 mmol/L Normal 10-20 The [employer] Comment on above: Performed By: #### L IP, MG, HEPATIC, CH8 #### [facility] [address] [place] [address], [phone] Calcium [Mass/Vol] 7.6 mg/dL Low 8.4-10.4 The [employer] Comment on above: Performed By: #### L IP, MG, HEPATIC, CH8 #### [facility] [address] [place] [address], Chloride [Moles/Vol] 94 mmol/L Low 97-111 [facility] Comment on above: Performed By: #### L IP, MG, HEPATIC, CH8 #### [facility] [address] [place] [address], CO2 [Moles/Vol] 33 mmol/L High 21-30 [facility] Comment on above: Performed By: #### L IP, MG, HEPATIC, CH8 #### [facility] [address] [place] [address], Creatinine [Mass/Vol] 1.16 mg/dL Normal 0.80-1.30 [facility] Comment on above: Performed By: #### L IP, MG, HEPATIC, CH8 #### [facility] [address] [place] [address], ESTIMATED GFR (CKD-EPI) 58 mL/min/1.73sqm Low >=60 [facility] Comment on above: Performed By: #### L IP, MG, HEPATIC, CH8 #### [facility] [address] [place] [address], Glucose [Mass/Vol] 149 mg/dL High 80-116 [facility] Comment on above: Performed By: #### L IP, MG, HEPATIC, CH8 #### [facility] [address] [place] [address], Potassium [Moles/Vol] 4.0 mmol/L Normal 3.3-5.3 [facility] Comment on above: Performed By: #### L IP, MG, HEPATIC, CH8 #### [facility] [address] [place] [address], Sodium [Moles/Vol] 134 mmol/L Low 135-148 [facility] Comment on above: Performed By: #### L IP, MG, HEPATIC, CH8 #### [facility] [address] [place] [address], Urea nitrogen [Mass/Vol] 25 mg/dL High 8-22 [facility] Comment on above: Performed By: #### L IP, MG, HEPATIC, CH8 #### [facility] [address] [place] [address], CBC WITH DIFFERENTIALon 08-02 Basophils (Bld) [#/Vol] 0.08 10*3/uL Normal 0.00-0.20 [facility] Comment on above: Performed By: #### C BC #### [facility] [address] [place] [address], Basophils/100 WBC (Bld) 0.9 % Normal <=1.9 [facility] Comment on above: Performed By: #### C BC #### [facility] [address] [place] [address], Eosinophils (Bld) [#/Vol] 0.25 10*3/uL Normal 0.00-0.70 [facility] Comment on above: Performed By: #### C BC #### [facility] [address] [place] [address], Eosinophils/100 WBC (Bld) 2.7 % Normal 0.1-4.0 [facility] Comment on above: Performed By: #### C BC #### [facility] [address] [place] [address], Erythrocyte distribution width (RBC) [Ratio] 13.8 % Normal 11.5-14.5 [facility] Comment on above: Performed By: #### C BC #### [facility] [address] [place] [address], Hematocrit (Bld) [Volume fraction] 27.5 % Low 41.0-53.0 [facility] Comment on above: Performed By: #### C BC #### [facility] [address] [place] [address], Hemoglobin (Bld) [Mass/Vol] 9.2 g/dL Low 13.9-16.3 [facility] Comment on above: Performed By: #### C BC #### [facility] [address] [place] [address], Lymphocytes (Bld) [#/Vol] 0.92 10*3/uL Low 1.00-4.80 [facility] Comment on above: Performed By: #### C BC #### [facility] [address] [place] [address], Lymphocytes/100 WBC (Bld) 10.1 % Low 24.0-44.0 [facility] Comment on above: Performed By: #### C BC #### [facility] [address] [place] [address], MCH (RBC) [Entitic mass] 29.4 pg Normal 26.0-34.0 [facility] Comment on above: Performed By: #### C BC #### [facility] [address] [place] [address], MCHC (RBC) [Mass/Vol] 33.3 g/dL Normal 32.0-35.9 [facility] Comment on above: Performed By: #### C BC #### [facility] [address] [place] [address], MCV (RBC) [Entitic vol] 88 fL Normal 80-100 [facility] Comment on above: Performed By: #### C BC #### [facility] [address] [place] [address], MONOCYTE DISTRIBUTION WIDTH Normal [facility] Comment on above: Performed By: #### C BC #### [facility] [address] [place] [address], Monocytes (Bld) [#/Vol] 0.87 10*3/uL Normal 0.20-1.00 [facility] Comment on above: Performed By: #### C BC #### [facility] [address] [place] [address], Monocytes/100 WBC (Bld) 9.5 % Normal 2.0-11.0 [facility] Comment on above: Performed By: #### C BC #### [facility] [address] [place] [address], Neutrophils (Bld) [#/Vol] 7.00 10*3/uL Normal 1.50-8.00 [facility] Comment on above: Performed By: #### C BC #### [facility] [address], [place], Neutrophils/100 WBC (Bld) 76.7 % High 31.0-76.0 [facility] Comment on above: Performed By: #### C BC #### [facility] [address], [place], Platelet mean volume (Bld) [Entitic vol] 7.3 fL Low 7.5-11.2 [facility] Comment on above: Performed By: #### C BC #### [facility] [address], [place], Platelets (Bld) [#/Vol] 255 10*3/uL Normal 150-400 [facility] Comment on above: Performed By: #### C BC #### [facility] [address], [place], RBC (Bld) [#/Vol] 3.11 10*6/uL Low 4.50-5.90 [facility] Comment on above: Performed By: #### C BC #### [facility] [address], [place], WBC (Bld) [#/Vol] 9.1 10*3/uL Normal 4.5-11.5 [facility] Comment on above: Performed By: #### C BC #### [facility] [address], [place], CERULOPLASMINon 08-27-2021 CERU 23 mg/dL Normal 20-52 [facility] Comment on above: Performed By: #### C BC #### [facility] [address], [place], Care Plan Noteon 08-27-2021 Entertainment Usher Authentication Interface Message Text Problem: Infection: Goal: [...] Note: Continuous pulse ox monitoring. Normal The [employer] FERRITINon 08-27-2021 ERIC 416.1 ng/mL High 11.5-300.0 The [facility] Comment on above: Performed By: #### C BC #### [facility] [address] [place] [address], FULL LIPID PROFILEon 022 Cholesterol [Mass/Vol] 60 mg/dL Normal <200 [facility] Comment on above: Performed By: #### L IP, MG, HEPATIC, CH8 #### [facility] [address] [place] [address], Cholesterol in LDL [Mass/Vol] 38 mg/dL Normal <111 [facility] Comment on above: Performed By: #### L IP, MG, HEPATIC, CH8 #### [facility] [address] [place] [address], Cholesterol.total/C holesterol in HDL [Mass ratio] 3.53 {ratio} Normal <5.00 [facility] Comment on above: Performed By: #### L IP, MG, HEPATIC, CH8 #### [facility] [address] [place] [address], HDL CHOL 17 mg/dL Low >44 [facility] Comment on above: Performed By: #### L IP, MG, HEPATIC, CH8 #### [facility] [address] [place] [address], LDL/HDL 2.24 Normal <3.57 [facility] Comment on above: Performed By: #### L IP, MG, HEPATIC, CH8 #### [facility] [address] [place] [address], NON-HDL CHOLESTEROL 43 mg/dL Normal <130 [facility] Comment on above: Performed By: #### L IP, MG, HEPATIC, CH8 #### [facility] [address] [place] [address], Triglyceride [Mass/Vol] 42 mg/dL Normal <151 [facility] Comment on above: Performed By: #### L IP, MG, HEPATIC, CH8 #### [facility] [address] [place] [address], HEMOGLOBIN A1Con 08-27-2021 Glucose [Mass/Vol] 146 mg/dL Normal [facility] Comment on above: Order Comment: HbA1c of 5.7-6.4% have increased risk for diabetes and CV(Source :ADA 2014 Standard of Medical Care in Diabetes) Performed By: #### L IP, MG, HEPATIC, CH8 #### [facility] [address] [place] [address], HbA1c (Bld) [Mass fraction] 6.7 % High 4.0-5.6 [facility] Comment on above: Order Comment: HbA1c of 5.7-6.4% have increased risk for diabetes and CV(Source :ADA 2014 Standard of Medical Care in Diabetes) Performed By: #### L IP, MG, HEPATIC, CH8 #### [facility] [address] [place] [address], HEPATIC FUNCTION PANELon Albumin [Mass/Vol] 1.6 g/dL Low 3.4-5.1 [facility] Comment on above: Performed By: #### L IP, MG, HEPATIC, CH8 #### [facility] [address] [place] [address], ALK 159 IU/L Normal 40-200 [facility] Comment on above: Performed By: #### L IP, MG, HEPATIC, CH8 #### [facility] [address] [place] [address], ALT [Catalytic activity/Vol] 57 U/L High 7-40 [facility] Comment on above: Performed By: #### L IP, MG, HEPATIC, CH8 #### [facility] [address] [place] [address], AST [Catalytic activity/Vol] 27 U/L Normal 7-40 [facility] Comment on above: Performed By: #### L IP, MG, HEPATIC, CH8 #### [facility] [address] [place] [address], Bilirubin [Mass/Vol] 0.7 mg/dL Normal 0.1-1.5 [facility] Comment on above: Performed By: #### L IP, MG, HEPATIC, CH8 #### [facility] [address] [place] [address], Bilirubin.direct [Mass/Vol] 0.20 mg/dL Normal 0.10-0.30 [facility] Comment on above: Performed By: #### L IP, MG, HEPATIC, CH8 #### [facility] [address] [place] [address], Protein [Mass/Vol] 4.9 g/dL Low 5.7-8.1 [facility] Comment on above: Performed By: #### L IP, MG, HEPATIC, CH8 #### [facility] [address] [place] [address], HEPATITIS B SURFACE ANTIBODY on 08-27-2021 ANTI-HBS < 3.1 Normal [facility] Comment on above: Order Comment: Nonre active: Samples < 7.5 mIU/mL Reactive: Samples >/= 10.0 mIU/mL The accepted criteria for immunity to HBV is anti-HBs activity >/= 10 mIU/mL, as defined by the WHO International Reference Preparation. Performed By: #### A NTI-HBS, HBSAG #### [facility] [address] [place] [address], HEPATITIS B SURFACE ANTIGENo n 08-27-2021 HBSAG Non-Reactive Normal Non-Reactive [facility] Comment on above: Performed By: #### A NTI-HBS, HBSAG #### [facility] [address] [place] [address], HEPATITIS C ANTIBODYon 08-27 HCV Non-Reactive Normal Nonreactive [facility] Comment on above: Performed By: #### C BC #### [facility] [address] [place] [address], IRON AND TIBCon 08-27-2021 % SAT CORRECT PRD 56 % High 20-55 [facility] Comment on above: Performed By: #### C BC #### [facility] [address] [place] [address], FE CORRECT PRD 72 ug/dL Normal 30-125 [facility] Comment on above: Performed By: #### C BC #### [facility] [address] [place] [address], TIBC CORRECT PRD 129 ug/mL Low 200-300 [facility] Comment on above: Performed By: #### C BC #### [facility] [address] [place] [address], TRANSFER CORRECT PRD 92 mg/dL Low 210-375 [facility] Comment on above: Performed By: #### C BC #### [facility] [address] [place] [address], MAGNESIUMon 08-27-2021 Magnesium [Mass/Vol] 1.8 mg/dL Normal 1.6-2.8 The [employer] Comment on above: Performed By: #### L IP, MG, HEPATIC, CH8 #### [facility] [address] [place] [address], [id number] Progress Noteson 08-27-2021 Entertainment Usher Authentication Interface Message Text Pharmacokinetic Dosing Service [...] mL/min Culture(s): PENDING Melany Chavarria [facility] - Department of Pharmacy Services Normal [facility] [employer] Authentication Interface Message Text SW ICU Note: SW made aware by MD, pt will need home going IV ABX. CM and CSI aware and will follow for DC planning. Bailey Casillas [facility] Care Coordination Department Normal The [employer] Usher Authentication Interface Message Text [facility] Spiritual Care Services Services provided for: Patient and Family Services initiated by: Staff Customer Service Assistant Reason for services: Initial visit Assessment/Narrative: Customer Service Assistant knocked and entered patient's room to introduce self and share availability of spiritual care. Customer Service Assistant found patient supine in bed, awake and alert, visiting with his . Patient and spoke briefly with this director home health about their rchmv-naid-atou marriage, their children, and their grandchildren as well as the kena they have experienced throughout their life together. Interventions: Introduction of service Outcome: Patient and spouse aware of director home health availability Plan of Care: On-going visits 1-2x/week while patient is on MICU. Diana Smart MDiv Staff Customer Service Assistant, (she/her/hers) Ext: [phone] Pager: [phone] Normal [facility] [employer] Authentication Interface Message Text [facility] Pulmonary, Critical Care, AND Sleep Medicine [...] Critical Care time. Subjective: Inpatient PSG on NE last night. Denies complaints today. Objective: Allergy: [...] -- 67 25 98 % -- -- 01/26/22 1235 -- 97.6 ???F (36.4 ???C) Oral [...] BUN Cr Ca Mg PO4 08/27/21417 1.8 08/27/21 041 134 4.0 94 33 11 149 25 [...] 1612 (more content not included)... Normal The [employer] [facility] Entertainment Usher Authentication Interface Message Text [facility] DIVISION OF ACUTE CARE SURGERY --------- GENERAL INFORMATION -------- EMERGENCY GENERAL SURGERY NOTE Patient Name: Fidel Palomino Admission Date: 08/25/2021 Patient seen and examined on 08/27/2021 ------- INTERVAL HISTORY/EVENTS ----- Background Narrative: Fidel Palomino is a 86 year old male with a h/o HTN, HLD, BPH, remote left inguinal hernia repair with mesh, s/p appendectomy 07/28/21 (done at [facility]) c/b ileus who presented to [facility] ED [...] years. ??? Hospital Course/Procedures: 08/25/2021: Admitted to [facility], IR drain placed. Events in last 24 [...] date: 08/29) - Okay to discharge from [facility] perspective - Follow-up in 2 weeks with his surgeon at [facility] or at [facility] if need be Remaining of care per MICU team Patient seen with and assessment/plan discussed with Dr. Garcia. Denise Lincoln MD, MPH General Surgery PGY-1 ACS Consult: [phone] [facility] Floor: [phone] Plan not finalized until signed by attending, [...] HEPATIC, CH8 #### [facility] [address] [place], [address] BASIC METABOLIC PANELon 08-02 Anion gap [Moles/Vol] 20 mmol/L Normal 10-20 [facility] [employer] [facility] Comment on above: Performed By: #### L IP, MG, HEPATIC, CH8 #### [facility] [address] [facility], [place], Calcium [Mass/Vol] 8.0 mg/dL Low 8.4-10.4 [facility] Comment on above: Performed By: #### L IP, MG, HEPATIC, CH8 #### [facility] [address] [place] [address], Chloride [Moles/Vol] 89 mmol/L Low 97-111 [facility] Comment on above: Performed By: #### L IP, MG, HEPATIC, CH8 #### [facility] [address] [place] [address], CO2 [Moles/Vol] 32 mmol/L High 21-30 [facility] Comment on above: Performed By: #### L IP, MG, HEPATIC, CH8 #### S [facility] [address] [place] [address], Creatinine [Mass/Vol] 1.40 mg/dL High 0.80-1.30 [facility] Comment on above: Performed By: #### L IP, MG, HEPATIC, CH8 #### S [facility] [address] [place] [address], ESTIMATED GFR (CKD-EPI) 46 mL/min/1.73sqm Low >=60 [facility] Comment on above: Performed By: #### L IP, MG, HEPATIC, CH8 #### S [facility] [address] [place] [address], Glucose [Mass/Vol] 127 mg/dL High 80-116 [facility] Comment on above: Performed By: #### L IP, MG, HEPATIC, CH8 #### S [facility] [address] [place] [address], Potassium [Moles/Vol] 3.8 mmol/L Normal 3.3-5.3 [facility] Comment on above: Performed By: #### L IP, MG, HEPATIC, CH8 #### [facility] [address] [place] [address], Sodium [Moles/Vol] 137 mmol/L Normal 135-148 [facility] Comment on above: Performed By: #### L IP, MG, HEPATIC, CH8 #### S [facility] [address], [place], Urea nitrogen [Mass/Vol] 26 mg/dL High 8-22 [facility] Comment on above: Performed By: #### L IP, MG, HEPATIC, CH8 #### S PATH[facility] [address], [place], CBC WITH DIFFERENTIALon 08-02 Basophils (Bld) [#/Vol] 0.04 10*3/uL Normal 0.00-0.20 [facility] Comment on above: Performed By: #### C BCDSAT ####[facility] PATHOLOGY [id number] [place], [place], Basophils/100 WBC (Bld) 0.4 % Normal <=1.9 [facility] Comment on above: Performed By: #### C BCDSAT ####[facility] PATHOLOGY [id number] [place], [place], Eosinophils (Bld) [#/Vol] 0.17 10*3/uL Normal 0.00-0.70 [facility] Comment on above: Performed By: #### C BCDSAT ####[facility] PATHOLOGY [id number] [place], [place], Eosinophils/100 WBC (Bld) 1.5 % Normal 0.1-4.0 [facility] Comment on above: Performed By: #### C BCDSAT ####[facility] PATHOLOGY [id number] [place], [place], Erythrocyte distribution width (RBC) [Ratio] 13.7 % Normal 11.5-14.5 [facility] Comment on above: Performed By: #### C BCDSAT ####[facility] PATHOLOGY [id number] [place], [place], Hematocrit (Bld) [Volume fraction] 27.3 % Low 41.0-53.0 [facility] Comment on above: Performed By: #### C BCDSAT ####S PATHOLOGY [id number] [place], [place], Hemoglobin (Bld) [Mass/Vol] 8.9 g/dL Low 13.9-16.3 [facility] Comment on above: Performed By: #### Jesse GODINEZAT ####[facility] PATHOLOGY [id number] [place] [address], Lymphocytes (Bld) [#/Vol] 0.91 10*3/uL Low 1.00-4.80 [facility] Comment on above: Performed By: #### Jesse GODINEZAT ####[facility] PATHOLOGY [id number] [place] [address], Lymphocytes/100 WBC (Bld) 8.0 % Low 24.0-44.0 [facility] Comment on above: Performed By: #### Jesse GODINEZAT ####[facility] PATHOLOGY [id number] [place] [address], MCH (RBC) [Entitic mass] 29.1 pg Normal 26.0-34.0 [facility] Comment on above: Performed By: #### Jesse GODINEZAT ####[facility] PATHOLOGY [id number] [place] [address], MCHC (RBC) [Mass/Vol] 32.5 g/dL Normal 32.0-35.9 [facility] Comment on above: Performed By: #### Jesse GODINEZAT ####[facility] PATHOLOGY [id number] [place] [address], MCV (RBC) [Entitic vol] 90 fL Normal 80-100 [facility] Comment on above: Performed By: #### Jesse GODINEZAT ####[facility] PATHOLOGY [id number] [place] [address], MONOCYTE DISTRIBUTION WIDTH Normal [facility] Comment on above: Performed By: #### Jesse GODINEZAT ####[facility] PATHOLOGY [id number] [place], [place], Monocytes (Bld) [#/Vol] 1.03 10*3/uL High 0.20-1.00 [facility] Comment on above: Performed By: #### Jesse GODINEZAT ####[facility] PATHOLOGY [id number] [place], [place], Monocytes/100 WBC (Bld) 9.0 % Normal 2.0-11.0 [facility] Comment on above: Performed By: #### Jesse GODINEZAT ####[facility] PATHOLOGY [id number] [place], [place], Neutrophils (Bld) [#/Vol] 9.32 10*3/uL High 1.50-8.00 [facility] Comment on above: Performed By: #### Jesse GODINEZAT ####[facility] PATHOLOGY [id number] [place], [place], Neutrophils/100 WBC (Bld) 81.2 % High 31.0-76.0 [facility] Comment on above: Performed By: #### Jesse GODINEZAT ####[facility] PATHOLOGY [id number] [place], [place], Platelet mean volume (Bld) [Entitic vol] 7.4 fL Low 7.5-11.2 [facility] Comment on above: Performed By: #### Jesse GODINEZAT ####[facility] PATHOLOGY [id number] [place] [address], Platelets (Bld) [#/Vol] 225 10*3/uL Normal 150-400 [facility] Comment on above: Performed By: #### Jesse GODINEZAT ####[facility] PATHOLOGY [id number] [place], [place], RBC (Bld) [#/Vol] 3.05 10*6/uL Low 4.50-5.90 [facility] Comment on above: Performed By: #### Jesse GODINEZAT ####[facility] PATHOLOGY [id number] [place] [address], WBC (Bld) [#/Vol] 11.5 10*3/uL Normal 4.5-11.5 [facility] Comment on above: Performed By: #### Jesse GODINEZAT ####[facility] PATHOLOGY [id number] [place], [place], CLOSTRIDIUM DIFFICILEon - CLOSTRIDIUM DIFFICILE Negative Normal Negative [facility] Comment on above: Order Comment: [...] testing Performed By: #### C BC #### S PATHOLOGY LABORATORY [address] [place] [address], Care Plan Noteon 08-26-2021 [employer] Authentication Interface Message Text Problem: Infection: Goal: [...] [place]. No complaints of SOB. Normal [email or web address] HEPATIC FUNCTION PANELon Albumin [Mass/Vol] 1.5 g/dL Low 3.4-5.1 [facility] Comment on above: Performed By: #### L IP, MG, HEPATIC, CH8 #### [facility] [address] [place] [address], ALK 173 IU/L Normal 40-200 [facility] Comment on above: Performed By: #### L IP, MG, HEPATIC, CH8 #### [facility] [address] [place] [address], ALT [Catalytic activity/Vol] 77 U/L High 7-40 [facility] Comment on above: Performed By: #### L IP, MG, HEPATIC, CH8 #### S PATH[facility] LAB[facility] [address] [place] [address], AST [Catalytic activity/Vol] 39 U/L Normal 7-40 [facility] Comment on above: Performed By: #### L IP, MG, HEPATIC, CH8 #### S [facility] [address] [place] [address], Bilirubin [Mass/Vol] 0.6 mg/dL Normal 0.1-1.5 [facility] Comment on above: Performed By: #### L IP, MG, HEPATIC, CH8 #### [facility] [address] [place] [address], Bilirubin.direct [Mass/Vol] 0.20 mg/dL Normal 0.10-0.30 [facility] Comment on above: Performed By: #### L IP, MG, HEPATIC, CH8 #### [facility] [address] [place] [address], Protein [Mass/Vol] 4.6 g/dL Low 5.7-8.1 [facility] Comment on above: Performed By: #### L IP, MG, HEPATIC, CH8 #### [facility] [address] [place] [address], MAGNESIUMon 08-26-2021 Magnesium [Mass/Vol] 1.8 mg/dL Normal 1.6-2.8 [facility] Comment on above: Performed By: #### L IP, MG, HEPATIC, CH8 #### [facility] [address] [place] [address], PHOSPHORUSon 08-26-2021 Phosphate [Mass/Vol] 4.7 mg/dL High 2.3-4.2 [facility] Comment on above: Performed By: #### L IP, MG, HEPATIC, CH8 #### [facility] [address] [place] [address], Procedureson 08-26-2021 [employer] Authentication Interface Message Text Transthoracic Echocardiographic Report Name: GEORGETTE LIANG Interpreting HERLINDA JACQUES MD Physician: : [id number] Referring VERONICA ABEL MD Physician: Age: 86 Regulated Program Manager: ILDA PATEL Exam Date: 08/26/2021 Fellow: 09:22 [...] Doctor's order(s) verified. Patient's preferred language is [place] . Verbal consent for left heart echo [...] physician) on 08/26/2021 11:16 AM Normal [email or web address] Progress Noteson 08-26-2021 [employer] Usher Authentication Interface Message Text Pharmacokinetic Dosing Service [...] Suspected Source/Reason for Therapy Answer: Gastrointestinal/Intr aabdominal 08/26/21192822 1441 vancomycin dosing pharmacy consult Other, As [...] (A) Culture(s): PENDING. DUSTY SÁNCHEZ [facility] - Department of Pharmacy Services Normal [facility] [employer] Authentication Interface Message Text [facility] [employer] Pulmonary, Critical Care, AND Sleep Medicine MICU [...] left inguinal hernia (s/p mesh), s/p appendectomy 07/28/21 at [facility] complicated by ileus presented to [facility] with [...] ???C) Oral -- -- -- -- -- 08/25/210 102/57 -- -- 76 27 95 % [...] 80 (!) 22 95 % Nasal cannula 5 08/25/21 0940 -- -- -- 78 (!) [...] Neut (more content not included)... Normal [email or web address] [employer] Authentication Interface Message Text [facility] DIVISION OF ACUTE CARE SURGERY --------- GENERAL INFORMATION -------- EMERGENCY GENERAL SURGERY NOTE Patient Name: Fidel Palomino Admission Date: 08/25/2021 Patient seen and examined on 08/26/2021 ------- INTERVAL HISTORY/EVENTS ----- Background Narrative: Fidel Palomino is a 86 year old male with a h/o HTN, HLD, BPH, remote left inguinal hernia repair with mesh, s/p appendectomy 07/28/21 (done at [facility] - [facility]) c/b ileus who presented to [facility] ED [...] years. ??? Hospital Course/Procedures: 08/25/2021: Admitted to [facility], IR drain placed. Events in last 24 hours: Admitted to [facility] and IR drain placed yesterday 08/25/2021. Patient [...] Gap Glu BUN Cr Ca Mg PO4 08/26/21430 1.8 08/26/21 0431 4.7 08/26/21 043 137 3.8 89 32 20 127 26 1.40 8.0 08/25/21 1340 135 3.7 90 32 17 136 26 1.63 7.7 Arterial Blood Gases None IMAGING RESULTS - Last 24 hours (PERSONALLY REVIEWED) ??? CT CHEST, ABDOMEN AND PELVIS W/O CONTRAST (OSH: [facility]) - 08/24/2021 1. Moderate right-sided pleural [...] impaction. ??? XR CHEST 1V PORTABLE (OSH: [facility]) - 08/24/2021 LOW LUNG VOLUMES WITH [...] 3. (more content not included)... Normal [facility] [employer] Authentication Interface Message Text Pharmacy Renal Dosing [...] required; The recommended therapy is cefepime 2gm [id number] . Medication therapy has been updated per consult agreement. DUSTY SÁNCHEZ, [facility] Department of Pharmacy Services Normal [email or web address] US LIVER/GALL BLADDER/PANCRE ASon 08-26-2021 US [...] cholelithiasis is demonstrated. MACRO: None Normal [facility] ABO RH TYPEon 08-25-2021 ABO and Rh group Nom (Bld) Blood group O Rh(D) positive Normal [facility] Comment on above: Performed By: #### L IP, MG, HEPATIC, CH8 #### S PATHOLOGY LABORATORY [address] [place], [address] AEROBIC WOUND CULTUREon 08-02 AEROBIC WOUND CULTURE C PYOG: Positive Culture Report ESCHERICHIA COLI 2+ Escherichia coli Rare growth of normal skin brett GRAM STAIN: 4+ Polymorphonuclear Leukocytes No Squamous Epithelial Cells seen Mixed polymicrobial brett seen Normal [facility] Comment on above: Order Comment: THIS IS A PRELIMINARY REPORT. Final results will follow. Results of the preliminary report may be modified as additional information becomes available. Performed By: #### C PYOG ####[facility] [id number] [place], [place] MELISSA _ ORGANISM: ESCHERICHIA COLI ANTIBIOTIC [...] + Sulfamethoxazole <= 20 S Normal [facility] Comment on above: Order Comment: THIS IS A PRELIMINARY REPORT. Final results will follow. Results of the preliminary report may be modified as additional information becomes available. Performed By: #### C PYOG ####[facility] [id number] [place], [place] B TYPE NATRIURETIC PEPTIDEon 08-25-2021 Natriuretic peptide B (Bld) [Mass/Vol] 321.0 pg/mL High <100.0 [facility] Comment on above: Performed By: #### L IP, MG, HEPATIC, CH8 #### S PATHOLOGY LABORATORY [address] [place] [address], BASIC METABOLIC PANELon 08-02 Anion gap [Moles/Vol] 17 mmol/L Normal 10-20 [facility] Comment on above: Performed By: #### L IP, MG, HEPATIC, CH8 #### [facility] [address] [place] [address], Calcium [Mass/Vol] 7.7 mg/dL Low 8.4-10.4 [facility] Comment on above: Performed By: #### L IP, MG, HEPATIC, CH8 #### [facility] [address] [place] [address], Chloride [Moles/Vol] 90 mmol/L Low 97-111 [facility] Comment on above: Performed By: #### L IP, MG, HEPATIC, CH8 #### S PATH[facility] LAB[facility]ATORY [address] [place] [address], CO2 [Moles/Vol] 32 mmol/L High 21-30 [facility] Comment on above: Performed By: #### L IP, MG, HEPATIC, CH8 #### S PATH[facility] LAB[facility]ATORY [address] [place] [address], Creatinine [Mass/Vol] 1.63 mg/dL High 0.80-1.30 [facility] Comment on above: Performed By: #### L IP, MG, HEPATIC, CH8 #### S PATH[facility] LABORATORY [address] [place] [address], ESTIMATED GFR (CKD-EPI) 38 mL/min/1.73sqm Low >=60 [facility] Comment on above: Performed By: #### L IP, MG, HEPATIC, CH8 #### S PATH[facility] [address] [place] [address], Glucose [Mass/Vol] 136 mg/dL High 80-116 [facility] Comment on above: Performed By: #### L IP, MG, HEPATIC, CH8 #### S PATH[facility] LAB[facility] [address] [place] [address], Potassium [Moles/Vol] 3.7 mmol/L Normal 3.3-5.3 [facility] Comment on above: Performed By: #### L IP, MG, HEPATIC, CH8 #### S PATH[facility] LABORATORY [address] [place] [address], Sodium [Moles/Vol] 135 mmol/L Normal 135-148 [facility] Comment on above: Performed By: #### L IP, MG, HEPATIC, CH8 #### [facility] [address] [place] [address], Urea nitrogen [Mass/Vol] 26 mg/dL High 8-22 [facility] Comment on above: Performed By: #### L IP, MG, HEPATIC, CH8 #### S PATH[facility] LAB[facility] [address] [place] [address], Anion gap [Moles/Vol] 15 mmol/L Normal 10-20 [facility] Comment on above: Performed By: #### L IP, MG, HEPATIC, CH8 #### [facility] [address] [place] [address], Calcium [Mass/Vol] 7.9 mg/dL Low 8.4-10.4 [facility] Comment on above: Performed By: #### L IP, MG, HEPATIC, CH8 #### S PATHOLOGY LABORATORY [address], [place], Chloride [Moles/Vol] 88 mmol/L Low 97-111 [facility] Comment on above: Performed By: #### L IP, MG, HEPATIC, CH8 #### [facility] [address] [place] [address], CO2 [Moles/Vol] 33 mmol/L High 21-30 [facility] Comment on above: Performed By: #### L IP, MG, HEPATIC, CH8 #### [facility] [address] [place] [address], Creatinine [Mass/Vol] 1.96 mg/dL High 0.80-1.30 [facility] Comment on above: Performed By: #### L IP, MG, HEPATIC, CH8 #### [facility] [address] [place] [address], ESTIMATED GFR (CKD-EPI) 30 mL/min/1.73sqm Low >=60 [facility] Comment on above: Performed By: #### L IP, MG, HEPATIC, CH8 #### S PATHOLOGY LABORATORY [address], [place], Glucose [Mass/Vol] 134 mg/dL High 80-116 [facility] Comment on above: Performed By: #### L IP, MG, HEPATIC, CH8 #### S PATHOLOGY LABORATORY [address] [place] [address], Potassium [Moles/Vol] 3.7 mmol/L Normal 3.3-5.3 [facility] Comment on above: Performed By: #### L IP, MG, HEPATIC, CH8 #### S PATHOLOG[facility] LABORATORY [address], [place], Sodium [Moles/Vol] 132 mmol/L Low 135-148 [facility] Comment on above: Performed By: #### L IP, MG, HEPATIC, CH8 #### S PATHOLOG[facility] LABORATORY [address], [place], Urea nitrogen [Mass/Vol] 28 mg/dL High 8-22 [facility] Comment on above: Performed By: #### L IP, MG, HEPATIC, CH8 #### S PATHOLOG[facility] LABORATORY [address], [place], BLOOD CULTUREon 08-25-2021 Bacteria identified Cx Nom (Bld) C BLOOD: No Growth Normal [facility] Comment on above: Performed By: #### C BC #### [facility] [address], [place], BLOOD GAS, VENOUSon 08-25-19 22 CR ABEV 7.8 mmol/L High -4.0-4.0 [facility] Comment on above: Performed By: #### C R BGV ####S PATHOLOGY [id number] [place], [place], CR HCO3V 33 mmol/L High 22-28 [facility] Comment on above: Performed By: #### C R BGV ####S PATHOLOGY [id number] [place], [place], CR PHV 7.416 High 7.310-7.410 [facility] Comment on above: Performed By: #### C R BGV ####S PATHOLOGY [id number] [place], [place], CR PVCO2 52.5 mm Hg High 41.0-51.0 [facility] Comment on above: Performed By: #### C R BGV ####[facility] [id number] [place], [place], CR PVO2 43 mm Hg High 35-40 [facility] Comment on above: Performed By: #### C R BGV ####S PATHOLOGY [id number] [place], [place], Oxygen saturation in Blood 75.6 % High 70.0-75.0 [facility] Comment on above: Performed By: #### C R BGV ####[facility] PATHOLOGY [id number] [place], [place], CBC WITH DIFFERENTIALon 08-02 Basophils (Bld) [#/Vol] 0.03 10*3/uL Normal 0.00-0.20 [facility] Comment on above: Performed By: #### C BC #### [facility] [address], [place], Basophils/100 WBC (Bld) 0.2 % Normal <=1.9 [facility] Comment on above: Performed By: #### C BC #### [facility] [address], [place], Eosinophils (Bld) [#/Vol] 0.08 10*3/uL Normal 0.00-0.70 [facility] Comment on above: Performed By: #### C BC #### [facility] [address], [place], Eosinophils/100 WBC (Bld) 0.4 % Normal 0.1-4.0 [facility] Comment on above: Performed By: #### C BC #### [facility] [address], [place], Erythrocyte distribution width (RBC) [Ratio] 13.8 % Normal 11.5-14.5 [facility] Comment on above: Performed By: #### C BC #### [facility] [address], [place], Hematocrit (Bld) [Volume fraction] 33.0 % Low 41.0-53.0 [facility] Comment on above: Performed By: #### C BC #### [facility] [address], [place], Hemoglobin (Bld) [Mass/Vol] 10.6 g/dL Low 13.9-16.3 [facility] Comment on above: Performed By: #### C BC #### [facility] [address], [place], Lymphocytes (Bld) [#/Vol] 0.66 10*3/uL Low 1.00-4.80 [facility] Comment on above: Performed By: #### C BC #### [facility] [address], [place], Lymphocytes/100 WBC (Bld) 3.6 % Low 24.0-44.0 [facility] Comment on above: Performed By: #### C BC #### [facility] [address] [place] [address], MCH (RBC) [Entitic mass] 28.9 pg Normal 26.0-34.0 [facility] Comment on above: Performed By: #### C BC #### [facility] [address] [place] [address], MCHC (RBC) [Mass/Vol] 32.2 g/dL Normal 32.0-35.9 [facility] Comment on above: Performed By: #### C BC #### [facility] [address] [place] [address], MCV (RBC) [Entitic vol] 90 fL Normal 80-100 [facility] Comment on above: Performed By: #### C BC #### [facility] [address] [place] [address], MONOCYTE DISTRIBUTION WIDTH 21 High <=20 [facility] Comment on above: Performed By: #### C BC #### [facility] [address] [place] [address], Monocytes (Bld) [#/Vol] 1.52 10*3/uL High 0.20-1.00 [facility] Comment on above: Performed By: #### C BC #### [facility] [address] [place] [address], Monocytes/100 WBC (Bld) 8.3 % Normal 2.0-11.0 [facility] Comment on above: Performed By: #### C BC #### [facility] [address] [place] [address], Neutrophils (Bld) [#/Vol] 15.95 10*3/uL High 1.50-8.00 [facility] Comment on above: Performed By: #### C BC #### [facility] [address] [place] [address], Neutrophils/100 WBC (Bld) 87.5 % High 31.0-76.0 [facility] Comment on above: Performed By: #### C BC #### [facility] [address] [place] [address], Platelet mean volume (Bld) [Entitic vol] 7.7 fL Normal 7.5-11.2 [facility] Comment on above: Performed By: #### C BC #### [facility] [address] [place] [address], Platelets (Bld) [#/Vol] 267 10*3/uL Normal 150-400 [facility] Comment on above: Performed By: #### C BC #### [facility] [address] [place] [address], RBC (Bld) [#/Vol] 3.67 10*6/uL Low 4.50-5.90 [facility] Comment on above: Performed By: #### C BC #### [facility] [address], [place], WBC (Bld) [#/Vol] 18.2 10*3/uL High 4.5-11.5 [facility] Comment on above: Performed By: #### C BC #### [facility] [address] [place] [address], COMPLETE BLOOD COUNTon 08-25 Erythrocyte distribution width (RBC) [Ratio] 13.5 % Normal 11.5-14.5 [facility] Comment on above: Performed By: #### C BC #### [facility] [address], [place], Hematocrit (Bld) [Volume fraction] 28.8 % Low 41.0-53.0 [facility] Comment on above: Performed By: #### C BC #### [facility] [address], [place], Hemoglobin (Bld) [Mass/Vol] 9.5 g/dL Low 13.9-16.3 [facility] Comment on above: Performed By: #### C BC #### [facility] [address], [place], MCH (RBC) [Entitic mass] 29.5 pg Normal 26.0-34.0 [facility] Comment on above: Performed By: #### C BC #### [facility] [address], [place], MCHC (RBC) [Mass/Vol] 32.9 g/dL Normal 32.0-35.9 [facility] Comment on above: Performed By: #### C BC #### [facility] [address], [place], MCV (RBC) [Entitic vol] 90 fL Normal 80-100 [facility] Comment on above: Performed By: #### C BC #### [facility] [address], [place], Platelet mean volume (Bld) [Entitic vol] 7.6 fL Normal 7.5-11.2 [facility] Comment on above: Performed By: #### C BC #### [facility] [address], [place], Platelets (Bld) [#/Vol] 236 10*3/uL Normal 150-400 The [facility] Comment on above: Performed By: #### C BC #### [facility] [address], [place], RBC (Bld) [#/Vol] 3.22 10*6/uL Low 4.50-5.90 [facility] Comment on above: Performed By: #### C BC #### [facility] [address], [place], WBC (Bld) [#/Vol] 16.5 10*3/uL High 4.5-11.5 [facility] Comment on above: Performed By: #### C BC #### [facility] [address] [place], [id number] CTA CHEST PULMONARY EMBOLISM W/ CTAon 08-25-2021 [...] gallbladder is nondistended. MACRO: None Normal The [email or web address] [facility] Care Plan Noteon 08-25-2021 [employer] Authentication Interface Message Text Problem: Infection: Goal: [...] NC. Will wean as tolerated. Normal The [email or web address] [facility] Consultson 08-25-2021 [employer] Authentication Interface Message Text DEPARTMENT OF SURGERY CONSULT - ACUTE CARE SURGERY Fidel Palomino [id number] Chief Complaint/Reason for Consultation Intraabdominal fluid collection History (HPI) Fidel Palomino is a 86 year old male with a h/o HTN, HLD, BPH, remote left inguinal hernia repair with mesh, s/p appendectomy 12/28/21 (done at [facility]) c/b ileus who presented to [facility] ED [...] CT (more content not included)... Normal The [email or web address] [facility] ED Provider Noteson 08-25-19 22 [employer] Authentication Interface Message Text NS for KB 86yM PMH of HTN and appendectomy 07/28/21. Transfer from [facility] due to syncope, found to have abdominal [...] to assume care of patient. Normal The [employer] Authentication Interface Message Text ED RESIDENT CONTINUATION OF CARE NOTE Fidel Palomino was signed out to me at 7:18 PM Briefly, he presented to the ED for syncope, pericolic gutter abscess s/p appendectomy 07/2021 and PNA Signout note reviewed. Clinical Course: ED Course as of 08/25/211917Aug 25, 2021 0551 Lactic Acid(!): Lactate 2.2(!) [...] Color Yellow Appearance Clear pH 5.5 Spec [place] <=1.005 Protein Negative Glucose Negative Ketones Negative [...] Technically successful ultrasound-guided placement of a 10 Guine[place] pigtail catheter into right paracolic gutter abscess. [KB] ED Course User Index [KB] Jia Jiang DO [SP] Javon Gray MD Medical Decision MakinyM PMH of HTN and appendectomy 07/28/21. Transfer from [facility] due to syncope, found to have abdominal [...] Com (more content not included)... Normal The [employer] Interface Message Text 86yM PMH of HTN and appendectomy 07/28/21. Transfer from [facility] due to syncope, found to have abdominal fluid mass, pleural effusion (4L NC now), b/l leg edema (new), PNA, and fecal impaction. Small fluid bolus ordered and patient is being evaluated by ACS. Labs pending now, ordered for azithromycin. [ ] ACS recs [ ] likely admit medicine Normal The [employer] Interface Message Text 86yM PMH of HTN and appendectomy 07/28/21. Transfer from [facility] due to syncope, found to have abdominal fluid mass, pleural effusion (4L NC now), b/l leg edema (new), PNA, and fecal impaction. Small fluid bolus ordered and patient is being evaluated by [facility]. Labs pending now, ordered for azithromycin. Normal The [employer] Interface Message Text EMERGENCY DEPARTMENT - VISIT NOTE --------- HISTORY OF PRESENT ILLNESS ----- Chief Complaint Patient presents with * Chart tx from [facility] for post-op complications, apx removed 07/28/21, having fluid build up and posisble cyst found at surgical site, possible pna found on chest xray at OSH, no BM in 5 days not needed - patient preferred language is [place]. HPI History is provided by the patient [...] poor p.o. intake. He went to the [facility] emergency department for further evaluation where he was found to have a intra-abdominal abscess as well as bilateral pleural effusions with possible pneumonia. Because of the complex nature of his presentation, the patient was transferred to [facility] for further management. While ed route to [facility], the patient began to have substantial gas [...] nursing note reviewed. Exam conducted with a concrete bucket hooker present. Constitutional: General: He is not in [...] includ (more content not included)... Normal The [email or web address] [facility] HEPATIC FUNCTION PANELon Albumin [Mass/Vol] 1.7 g/dL Low 3.4-5.1 [facility] Comment on above: Performed By: #### L IP, MG, HEPATIC, CH8 #### [facility] [address] [place] [address], ALK 229 IU/L High 40-200 [facility] Comment on above: Performed By: #### L IP, MG, HEPATIC, CH8 #### [facility] [address] [place] [address], ALT [Catalytic activity/Vol] 125 U/L High 7-40 [facility] Comment on above: Performed By: #### L IP, MG, HEPATIC, CH8 #### [facility] [address] [place] [address], AST [Catalytic activity/Vol] 83 U/L High 740 [facility] Comment on above: Performed By: #### L IP, MG, HEPATIC, CH8 #### [facility] [address] [place] [address], Bilirubin [Mass/Vol] 0.7 mg/dL Normal 0.1-1.5 [facility] Comment on above: Performed By: #### L IP, MG, HEPATIC, CH8 #### [facility] [address] [place] [address], Bilirubin.direct [Mass/Vol] 0.40 mg/dL High 0.10-0.30 [facility] Comment on above: Performed By: #### L IP, MG, HEPATIC, CH8 #### S [facility] LAB[facility] [address] [place] [address], Protein [Mass/Vol] 5.6 g/dL Low 5.7-8.1 [facility] Comment on above: Performed By: #### L IP, MG, HEPATIC, CH8 #### [facility] [address] [place] [address], LACTIC ACIDon 08-25-2021 CR LACT 1.0 mmol/L Normal 0.5-2.0 [facility] Comment on above: Performed By: #### L IP, MG, HEPATIC, CH8 #### [facility] [address] [place] [address], CR LACT 2.2 mmol/L High 0.5-2.0 [facility] Comment on above: Performed By: #### L ACT #### [facility] [address] [place] [address], LIPASEon 08-25-2021 LIP 38 IU/L Normal <128 [facility] Comment on above: Performed By: #### L IP, MG, HEPATIC, CH8 #### [facility] [address] [place] [address], MAGNESIUMon 08-25-2021 Magnesium [Mass/Vol] 1.8 mg/dL Normal 1.6-2.8 [facility] Comment on above: Performed By: #### L IP, MG, HEPATIC, CH8 #### [facility] [address] [place] [address], PROTHROMBIN TIME AND INRon 0 08-25-2021 INR Coag (PPP) [Relative time] 1.36 {INR} High 0.90-1.10 The [email or web address] [facility] Comment on above: Performed By: #### P T ####[facility] [id number] [place], [place], PT Coag (PPP) [Time] 15.0 s High 9.7-12.9 The [email or web address] [facility] Comment on above: Performed By: #### P T ####[facility] [id number] [place], [place], Progress Noteson 08-25-2021 [employer]her Authentication Interface Message Text Pharmacokinetic Dosing Service [...] weight.) Culture(s): PENDING Armond Cohn [facility] - Department of Pharmacy Services Normal The [email or web address] [facility] TROPONIN Ion 08-25-2021 TROP I < 0.030 Normal <0.120 The [employer] Comment on above: Result Comment: Rang e [...] MG, HEPATIC, CH8 #### [facility] [address] [place] [address], TYPE AND SCREENon 08-25-2021 ABO and Rh group Nom (Bld) Blood group O Rh(D) positive Normal The [facility] Comment on above: Performed By: #### L IP, MG, HEPATIC, CH8 #### [facility] [address] [place] [address], ABO and Rh group Nom (Bld) No Previous Results Normal [facility] Comment on above: Performed By: #### L IP, MG, HEPATIC, CH8 #### [facility] [address] [place] [address], ABSC INT Negative Normal [facility] Comment on above: Performed By: #### L IP, MG, HEPATIC, CH8 #### [facility] [address] [place] [address], URINALYSISon 08-25-2021 Glucose Ql (U) Negative Normal [...] 50%) Performed By: #### C BC #### S [facility] [address] [place] [address], U APPEAR Clear Normal Clear [facility] [...] 50%) Performed By: #### C BC #### [facility] [address] [place] [address], U BILI Negative Normal Negative The [email or web address] [facility] Comment on above: Order Comment: A [...] 50%) Performed By: #### C BC #### [facility] [address] [place] [address], U BLOOD Negative Normal Negative The [email or web address] [facility] Comment on above: Order Comment: A [...] 50%) Performed By: #### C BC #### [facility] [address] [place] [address], U COLOR Yellow Normal Yellow The [email or web address] [facility] Comment on above: Order Comment: A [...] 50%) Performed By: #### C BC #### [facility] [address] [place] [address], U KETONE Negative Normal Negative The [email or web address] [facility] Comment on above: Order Comment: A [...] 50%) Performed By: #### C BC #### [facility] [address] [place] [address], U LEUK Trace Abnormal Negative The [email or web address] [facility] Comment on above: Order Comment: A [...] 50%) Performed By: #### C BC #### [facility] [address] [place] [address], U NITRITE Negative Normal Negative The [email or web address] [facility] Comment on above: Order Comment: A [...] 50%) Performed By: #### C BC #### [facility] [address] [place] [address], U PH 6.0 Normal 5.0-8.0 [facility] Comment on above: Order Comment: A [...] 50%) Performed By: #### C BC #### [facility] [address] [place] [address], U PROTEIN Negative Normal Negative [facility] Comment on above: Order Comment: A [...] 50%) Performed By: #### C BC #### [facility] [address], [place], U RBC 3-5 Abnormal 0-2 [facility] Comment on above: Order Comment: A [...] 50%) Performed By: #### C BC #### [facility] [address] [place] [address], U SG 1.023 Normal 1.005-1.030 [facility] Comment on above: Order Comment: A [...] 50%) Performed By: #### C BC #### [facility] [address] [place] [address], U UROBILI Negative Normal 0.1 - 1.0 [facility] Comment on above: Order Comment: A [...] 50%) Performed By: #### C BC #### [facility] [address] [place] [address], U WBC 3-5 Abnormal 0-2 [facility] Comment on above: Order Comment: A [...] #### C BC #### [facility] [address] [place] [address], URINALYSIS,AUTO-IN OFFICEon 08-25-2021 BILIRUBIN, URINE POC Negative Normal Negative [facility] Comment on above: Order Comment: TEST PERFORMED AT:Emergency Department POC [id number] [place] [address] Performed By: #### L IP, MG, HEPATIC, CH8 #### [facility] [address] [place] [address], BLOOD, URINE POC Negative Normal Negative [facility] Comment on above: Order Comment: TEST PERFORMED AT:Emergency Department POC [id number] [place] [address] Performed By: #### L IP, MG, HEPATIC, CH8 #### [facility] [address] [place] [address], CLARITY, POC Clear Normal [facility] Comment on above: Order Comment: TEST PERFORMED AT:Emergency Department POC [id number] [place] [address] Performed By: #### L IP, MG, HEPATIC, CH8 #### [facility] [address] [place] [address], COLOR, POC Yellow Normal [facility] Comment on above: Order Comment: TEST PERFORMED AT:Emergency Department POC [id number] [place] [address] Performed By: #### L IP, MG, HEPATIC, CH8 #### [facility] [address] [place] [address], GLUCOSE, URINE POC Negative Normal Negative [facility] Comment on above: Order Comment: TEST PERFORMED AT:Emergency Department POC [id number] [place] [address] Performed By: #### L IP, MG, HEPATIC, CH8 #### [facility] [address] [place] [address], KETONES, URINE POC Negative Normal Negative [facility] Comment on above: Order Comment: TEST PERFORMED AT:Emergency Department POC [id number] [place] [address] Performed By: #### L IP, MG, HEPATIC, CH8 #### [facility] [address] [place] [address], LEUKOCYTES, URINE POC Negative Normal Negative The [facility] Comment on above: Order Comment: TEST PERFORMED AT:Emergency Department POC [id number] [place] [address] Performed By: #### L IP, MG, HEPATIC, CH8 #### [facility] [address] [place] [address], NITRITES, URINE POC Negative Normal Negative [facility] Comment on above: Order Comment: TEST PERFORMED AT:Emergency Department POC [id number] [place] [address] Performed By: #### L IP, MG, HEPATIC, CH8 #### [facility] [address] [place] [address], PH, URINE POC 5.5 Normal 5.0-8.0 [facility] Comment on above: Order Comment: TEST PERFORMED AT:Emergency Department POC [id number] [place] [address] Performed By: #### L IP, MG, HEPATIC, CH8 #### [facility] [address] [place] [address], PROTEIN, URINE POC Negative Normal Negative [facility] Comment on above: Order Comment: TEST PERFORMED AT:Emergency Department POC [id number] [place] [address] Performed By: #### L IP, MG, HEPATIC, CH8 #### [facility] [address] [place] [address], SPECIFIC GRAVITY, POC <=1.005 Normal 1.005 - 1.030 [facility] Comment on above: Order Comment: TEST PERFORMED AT:Emergency Department POC [id number] [place] [address] Performed By: #### L IP, MG, HEPATIC, CH8 #### [facility] [address] [place] [address], UROBILINOGEN, URINE POC 0.2 Normal 0.2 - 1.0 [facility] Comment on above: Order Comment: TEST PERFORMED AT:Emergency Department POC [id number] [place] [address] Performed By: #### L IP, MG, HEPATIC, CH8 #### [facility] [address] [place] [address], CULTURE URINEon 08-24-2021 CULTURE URINE Isolate 1 [...] Trimethoprim/Sulfamet hoxazole <=20 S F Normal The [facility] Comment on above: Performed By: #### H STROPN #### [facility] [address] [place] [address] Dr. Uziel Reid BNPon 08-22-2021 Natriuretic peptide B (Bld) [Mass/Vol] 700.0 pg/mL Normal <=1,800.0 [place] Comment on above: Performed By: #### H STROPN #### [facility] [address] [place] [address] Dr. Uziel Reid CBC AUTO DIFFon 08-22-2021 BASO # 0.0 103/ul Normal 0.0-0.1 [place] Comment on above: Performed By: #### C BC #### [facility] [address] [place] [address] Dr. Uziel Reid Basophils/100 WBC (Bld) 0.3 % Normal 0.2-2.0 [place] Comment on above: Performed By: #### C BC #### [facility] [address] [place] [address] Dr. Uziel Reid EO # 0.1 103/ul Normal 0.0-0.7 The [facility] Comment on above: Performed By: #### C BC #### [facility] [address] [place] [address] Dr. Uziel Reid Eosinophils/100 WBC (Bld) 0.7 % Critically low 0.9-7.0 [place] Comment on above: Performed By: #### C BC #### [facility] [address] [place] [address] Dr. Uziel Reid Erythrocyte distribution width (RBC) [Ratio] 13.3 % Normal 11.0-15.0 [place] Comment on above: Performed By: #### C BC #### [facility] [address] [place] [address] Dr. Uziel Reid Hematocrit (Bld) [Volume fraction] 31.4 % Critically low 42.0-54.0 [place] Comment on above: Performed By: #### C BC #### [facility] [address] [place] [address] Dr. Uziel Reid Hemoglobin (Bld) [Mass/Vol] 10.1 g/dL Critically low 14.0-18.0 [place] Comment on above: Performed By: #### C BC #### [facility] [address] [place] [address] Dr. Uziel Reid IG # 0.10 10e3/ul Critically high 0.00-0.03 [facility] Comment on above: Performed By: #### C BC #### [facility] [address] [place] [address] Dr. Uziel Reid IG % 0.7 % Critically high 0.0-0.5 [facility] Comment on above: Performed By: #### C BC #### [facility] [address] [place] [address] Dr. Uziel Reid LYMPH # 0.9 103/ul Critically low 1.2-3.8 [facility] Comment on above: Performed By: #### C BC #### [facility] [address] [place] [address] Dr. Uziel Reid Lymphocytes/100 WBC (Bld) 6.0 % Critically low 20.5-60.0 [place] Comment on above: Performed By: #### C BC #### [facility] [address] [place] [address] Dr. Uziel Reid MANUAL DIFF REQ NO Normal [facility] Comment on above: Performed By: #### C BC #### [facility] [address] [place] [address] [address] Uziel Reid MCH (RBC) [Entitic mass] 29.6 pg Normal 25.9-34.0 [facility] Comment on above: Performed By: #### C BC #### [facility] [address] [place] [address] Dr. Uziel Reid MCHC (RBC) [Mass/Vol] 32.2 g/dL Normal 29.9-35.2 The [facility] Comment on above: Performed By: #### C BC #### [facility] [address] [place] [address] Dr. Uziel Reid MCV (RBC) [Entitic vol] 92.1 fL Normal 80.0-94.0 [place] Comment on above: Performed By: #### C BC #### [facility] [address] [place] [address] Dr. Uziel Reid MONO # 1.5 103/ul Critically high 0.3-0.8 The [facility] Comment on above: Performed By: #### C BC #### [facility] [address] [place] [address] Dr. Uziel Reid Monocytes/100 WBC (Bld) 9.8 % Normal 1.7-12.0 The [facility] Comment on above: Performed By: #### C BC #### [facility] [address] [place] [address] Dr. Uziel Reid NEUT # 12.7 103/ul Critically high 1.4-6.5 [facility] Comment on above: Performed By: #### C BC #### [facility] [address] [place] [address] Dr. Uziel Reid Neutrophils/100 WBC (Bld) 82.5 % Critically high 43.0-75.0 [facility] Comment on above: Performed By: #### C BC #### [facility] [address] [place] [address] Dr. Uziel Reid Platelet mean volume (Bld) [Entitic vol] 9.8 fL Normal 9.5-13.5 The [facility] Comment on above: Performed By: #### C BC #### [facility] [address], [place] [address] Dr. Uziel Reid PLT 199 103/ul Normal 150-450 [facility] Comment on above: Performed By: #### C BC #### [facility] [address] [place], [place] [address] Dr. Uziel Reid RBC 3.41 106/ul Critically low 4.70-6.10 The [facility] Comment on above: Performed By: #### C BC #### [facility] [address] [place], [place] [address] Dr. Uziel Reid WBC 15.3 103/ul Critically high 4.0-11.0 [facility] Comment on above: Performed By: #### C BC #### [facility] [address] [place] [address] [address] Uziel Reid [facility]02 SARS-CoV-2 (COVID-19) RNA ALFONSO+probe Ql (Unsp spec) Not detected Normal NOT DETECTED The [facility] Comment on above: Result Comment: When diagnostic testing is negative, the possibility of a false negative should be considered in the context of a patient's recent exposures and the presence of clinical signs and symptoms consistent with SARS-CoV-2. This test is not yet approved or cleared by the [place] Food and Drug Administration (FDA). This test was developed by [employer], [place], [place]. The performance characteristics of this test were validated by The [facility]. The results are not intended to be used as the sole means for clinical diagnosis or patient management decisions. The [facility] is authorized under Clinical Laboratory Improvement Amendments [...] for this test is supported by the [place] of Health and Human Service's declaration that [...] used). Performed By: #### C BCMAN #### [facility] [address] [place] [address] Dr. Uziel Reid ER URINE PROFILEon 2 Bilirubin Ql (U) Negative Normal NEGATIVE The [facility] Comment on above: Performed By: #### B MP, PHOS, MG #### [facility] [address] [place] [address] Dr. Uziel Reid Clarity (U) CLEAR Normal CLEAR The [facility] Comment on above: Performed By: #### B MP, PHOS, MG #### [facility] [address] [place] [address] Dr. Uziel Reid Color (U) LT. YELLOW Normal YELLOW The [facility] Comment on above: Performed By: #### B MP, PHOS, MG #### [facility] [address] [place] [address] Dr. Uziel STEIN A micrscopic examination will be performed if indicated. Normal The [facility] Comment on above: Performed By: #### B MP, PHOS, MG #### [facility] [address] [place] [address] Dr. Uziel Reid Glucose Ql (U) Negative Normal NEGATIVE The [facility] Comment on above: Performed By: #### B MP, PHOS, MG #### [facility] [address] [address] [address] Uziel Reid Hemoglobin Ql (U) Negative Normal NEGATIVE The [facility] Comment on above: Performed By: #### B MP, PHOS, MG #### [facility] [address] [place] [address] Dr. Uziel Reid Ketones Ql (U) Negative Normal NEGATIVE The [facility] Comment on above: Performed By: #### B MP, PHOS, MG #### [facility] [address] [place] [address] Dr. Uziel Reid LEUKOCYTES TRACE Abnormal NEGATIVE The [facility] Comment on above: Performed By: #### B MP, PHOS, MG #### [facility] [address] [address] [address] Uziel Reid Nitrite Ql (U) Positive Abnormal NEGATIVE [facility] Comment on above: Performed By: #### B MP, PHOS, MG #### [facility] [address] [address] [address] Uziel Reid pH (U) 6.0 [pH] Normal 5-9 [place] Comment on above: Performed By: #### B MP, PHOS, MG #### [facility] [address] [address] [address] Uziel Reid SPEC GRAVITY 1.010 Normal 1.005-<=1.025 [facility] Comment on above: Performed By: #### B MP, PHOS, MG #### [facility] [address] [place] [address] Dr. Uziel Reid UA PROTEIN Negative Normal NEGATIVE/ TRACE [place] Comment on above: Performed By: #### B MP, PHOS, MG #### [facility] [address] [address] [address] Uziel Reid UR MICRO IND INDICATED Normal [place] Comment on above: Performed By: #### B MP, PHOS, MG #### [facility] [address] [place] [address] Dr. Uziel Reid Urobilinogen Qn (U) 0.2 {Sushma'U}/dL Normal 0.2 - 1. 0 [place] Comment on above: Performed By: #### B MP, PHOS, MG #### [facility] [address] [place] [address] Dr. Uziel Reid PROF 14(COMP METB)on 022 Albumin [Mass/Vol] 1.8 g/dL Critically low 3.5-5.0 Th e [facility] Comment on above: Performed By: #### H STROPN #### [facility] [address] [place] [address] Dr. Uziel Reid Albumin/Globulin [Mass ratio] 0.4 {ratio} Normal [place] Comment on above: Performed By: #### H STROPN #### [facility] [address] [address] [address] Uziel Reid ALP [Catalytic activity/Vol] 211 U/L Critically high 38-126 [place] Comment on above: Performed By: #### H STROPN #### [facility] [address] [address] [address] Uziel Reid ALT [Catalytic activity/Vol] 104 U/L Critically high 21-72 [place] Comment on above: Performed By: #### H STROPN #### [facility] [address] [address] [address] Uziel Reid Anion gap [Moles/Vol] 7.1 mmol/L Normal [place] Comment on above: Performed By: #### H STROPN #### [facility] [address] [address] [address] Uziel Reid AST [Catalytic activity/Vol] 86 U/L Critically high 17-59 [place] Comment on above: Performed By: #### H STROPN #### [facility] [address] [address] [address] Uziel Reid Bilirubin [Mass/Vol] 0.7 mg/dL Normal 0.2-1.3 [place] Comment on above: Performed By: #### H STROPN #### [facility] [address] [address] [address] Uziel Reid Calcium [Mass/Vol] 8.2 mg/dL Critically low 8.4-10.2 Th [facility] Comment on above: Performed By: #### H STROPN #### [facility] [address] [address] [address] Uziel Reid Chloride [Moles/Vol] 88 mmol/L Critically low 98-107 [place] Comment on above: Performed By: #### H STROPN #### [facility] [address] [address] [address] Uziel Reid CO2 [Moles/Vol] 36.3 mmol/L Critically high 22.0-30.0 [place] Comment on above: Performed By: #### H STROPN #### [facility] [address] [address] [address] Uziel Reid Creatinine [Mass/Vol] 1.75 mg/dL Critically high 0.66-1.25 [place] Comment on above: Performed By: #### H STROPN #### [facility] [address] [address] [address] Uziel Reid EGFR-AF GRENADIAN 45 mL/min/1.73m2 Critically low >=60 [place] Comment on above: Performed By: #### H STROPN #### [facility] [address] [address] [address] Uziel Reid EGFR-NON AF GRENADIAN 37 mL/min/1.73m2 Critically low >=60 [place] Comment on above: Performed By: #### H STROPN #### [facility] [address] [address] [address] Uziel Redi Globulin (S) [Mass/Vol] 5.0 g/dL Normal [place] Comment on above: Performed By: #### H STROPN #### [facility] [address] [address] [address] Uziel Reid Glucose [Mass/Vol] 226 mg/dL Critically high 74-106 T [facility] Comment on above: Performed By: #### H STROPN #### [facility] [address] [address] [address] Uziel Reid Potassium [Moles/Vol] 3.4 mmol/L Normal 3.4-5.0 [place] Comment on above: Performed By: #### H STROPN #### [facility] [address] [address] [address] Uziel Reid Protein [Mass/Vol] 6.8 g/dL Normal 6.1-8.2 [facility] Comment on above: Performed By: #### H STROPN #### [facility] [address] [address] [address] Uziel Reid Sodium [Moles/Vol] 128 mmol/L Critically low 137-145 Th e [facility] Comment on above: Performed By: #### H STROPN #### [facility] [address] [address] [address] Uziel Reid Urea nitrogen [Mass/Vol] 30.0 mg/dL Critically high 9.0-20.0 [place] Comment on above: Performed By: #### H STROPN #### [facility] [address] [address] [address] Uziel Reid Urea nitrogen/Creatinine [Mass ratio] 17.1 mg/mg Normal The [facility] Comment on above: Performed By: #### H STROPN #### [facility] [address] [address] [address] Uziel Reid TROPONIN, HIGH SENSITIVITYon 08-22-2021 HSTROP 8.2 pg/mL Normal 4.0-42.2 [place] Comment on above: Result Comment: CUT- OFF POINTS HAVE BEEN ESTABLISHED BASED ON THE FOURTH UNIVERSAL DEFINITIONS OF MYOCARDIAL INFARCTION. THE UPPER REFERENCE LIMIT (URL) OF TROPONIN, DEFINED THE 99TH PERCENTILE OF cTnI DISTRIBUTION IN A REFERENCE POPULATION, HAS BEEN CONFIRMED THE DECISION THRESHOLD FOR ME DIAGNOSIS. Performed By: #### H STROPN #### [facility] [address] [place] [address] Dr. Uziel Reid URINE MICROSCOPIC ONLYon BACTERIA MODERATE Abnormal NONE SEEN [place] Comment on above: Performed By: #### B MP, PHOS, MG #### [facility] [address] [place] [address] Dr. Uziel Reid Bacteria identified Cx Nom (U) INDICATED Normal The [facility] Comment on above: Performed By: #### B MP, PHOS, MG #### [facility] [address] [place] [address] Dr. Uziel eRid CAST NONE SEEN Normal NONE SEEN [place] Comment on above: Performed By: #### B MP, PHOS, MG #### [facility] [address] [place] [address] Dr. Uziel Reid Crystals LM Nom (Urine sed) NONE SEEN Normal NONE SEEN [place] Comment on above: Performed By: #### B MP, PHOS, MG #### [facility] [address], [place] [address] Dr. Uziel Reid Epithelial cells LM Ql (Urine sed) NONE SEEN Normal NONE SEEN /RARE The [facility] Comment on above: Performed By: #### B MP, PHOS, MG #### [facility] [address] [place], [place] [address] Dr. Uziel Reid MUCOUS NONE SEEN Normal NONE SEEN The [facility] Comment on above: Performed By: #### B MP, PHOS, MG #### [facility] [address] [address] [address] Uziel Reid RBC 0-2 Normal 0-2 The [facility] Comment on above: Performed By: #### B MP, PHOS, MG #### [facility] [address] [address] [address] Uziel Reid WBC 10-20 Abnormal NONE SEEN The [facility] Comment on above: Performed By: #### B MP, PHOS, MG #### [facility] [id number] Uziel Reid XR CHEST 1 Von [...] GERARDO BRADY Date: 2021-08-22 00:30 Normal The [facility] CBC W MANUAL DIFFon 08-18-19 22 ATYPICAL LYMPH # Normal The [facility] Comment on above: Performed By: #### C BCSARIKA #### [facility] [id number] Uziel Reid ATYPICAL LYMPH % Normal The [facility] Comment on above: Performed By: #### C FERDINAND #### [facility] [address] [place] [address] Dr. Uziel Reid BAND # Normal 0.0-0.3 [place] Comment on above: Performed By: #### C BCMAN #### [facility] [address] [place] [address] Dr. Uziel Reid BAND % Normal 0-5 The [facility] Comment on above: Performed By: #### C BCMAN #### [facility] [address] [place] [address] Dr. Uziel Reid BASOM # 0.00 103/ul Normal 0.00-0.10 [place] Comment on above: Performed By: #### C BCSARIKA #### [facility] [address] [place] [address] Dr. Uziel Reid BASOM % 0.0 % Critically low 0.2-2.0 [facility] Comment on above: Performed By: #### C FERDINAND #### [facility] [address] [place] [address] Dr. Uziel Reid BLAST # Normal [place] Comment on above: Performed By: #### C FERDINAND #### [facility] [address] [place] [address] Dr. Uziel Reid BLAST % Normal [place] Comment on above: Performed By: #### C FERDINAND #### [facility] [address] [place] [address] Dr. Uziel Reid CORRECTED WBC Normal 4.0-11.0 The [facility] Comment on above: Performed By: #### C BCSARIKA #### [facility] [address] [place] [address] Dr. Uziel Reid EOS # 0.00 103/ul Normal 0.00-0.70 [place] Comment on above: Performed By: #### C BCSARIKA #### [facility] [address] [place] [address] Dr. Uziel Reid EOS% 0.0 % Critically low 0.9-7.0 [facility] Comment on above: Performed By: #### C FERDINAND #### [facility] [address] [place] [address] Dr. Uziel Reid HCT 31.8 % Critically low 42.0-54.0 [facility] Comment on above: Performed By: #### C FERDINAND #### [facility] [address] [address] [address] Uziel Reid HGB 10.2 g/dl Critically low 14.0-18.0 [facility] Comment on above: Performed By: #### C FERDINAND #### [facility] [address] [address] [address] Uziel Reid LYMPHM # 1.83 103/ul Normal 1.20-3.80 [place] Comment on above: Performed By: #### C FERDINAND #### [facility] [address] [place] [address] Dr. Uziel Reid LYMPHM% 11.0 % Critically low 20.5-60.0 [facility] Comment on above: Performed By: #### C FERDINAND #### [facility] [address] [place] [address] Dr. Uziel Reid MCH 29.7 pg Normal 25.9-34.0 [place] Comment on above: Performed By: #### C FERDINAND #### [facility] [address] [place] [address] Dr. Uziel Reid MCHC 32.1 g/dl Normal 29.9-35.2 [place] Comment on above: Performed By: #### Jesse STREETER #### [facility] [address] [place] [address] Dr. Uziel Reid MCV 92.7 fL Normal 80.0-94.0 [place] Comment on above: Performed By: #### C FERDINAND #### [facility] [address] [place] [address] Dr. Uziel Reid METAMYELOCYTE # Normal [facility] Comment on above: Performed By: #### C FERDINAND #### [facility] [address] [place] [address] Dr. Uziel Reid METAMYELOCYTE % Normal The [facility] Comment on above: Performed By: #### C FERDINAND #### [facility] [address] [address] [address] Uziel Reid MONOM# 1.83 103/ul Critically high 0.30-0.80 [facility] Comment on above: Performed By: #### C FERDINAND #### [facility] [address] [address] [address] Uziel Reid MONOM% 11.0 % Normal 1.7-12.0 [place] Comment on above: Performed By: #### C FERDINAND #### [facility] [address] [address] [address] Uziel Reid MPV 9.8 fL Normal 9.5-13.5 [place] Comment on above: Performed By: #### C FERDINAND #### [facility] [address] [address] [address] Uziel Reid MYELOCYTE # Normal [place] Comment on above: Performed By: #### Jesse STREETER #### [facility] [address] [address] [address] Uziel Reid MYELOCYTE % Normal [place] Comment on above: Performed By: #### C FERDINAND #### [facility] [address] [address] [address] Uziel Reid NRBC Normal [place] Comment on above: Performed By: #### C FERDINAND #### [facility] [address] [address] [address] Uziel Reid PLT 240 103/ul Normal 150-450 The [facility] Comment on above: Performed By: #### C FERDINAND #### [facility] [address] [address] [address] Uziel Reid RBC 3.43 106/ul Critically low 4.70-6.10 [facility] Comment on above: Performed By: #### C FERDINAND #### [facility] [address] [address] [address] Uziel Reid RDW 13.3 % Normal 11.0-15.0 [place] Comment on above: Performed By: #### C FERDINAND #### [facility] [address] [address] [address] Uziel Reid SEG # 12.95 103/ul Critically high 1.40-6.50 [facility] Comment on above: Performed By: #### C FERDINAND #### [facility] [address] [address] [address] Uziel Reid SEG % 78.0 % Critically high 43.0-75.0 The [facility] Comment on above: Performed By: #### C FERDINAND #### [facility] [address] [address] [address] Uziel Reid WBC 16.6 103/ul Critically high 4.0-11.0 [facility] Comment on above: Performed By: #### C FERDINAND #### [facility] [address] [address] [address] Uziel Reid PROF 14(COMP METB)on 022 Albumin [Mass/Vol] 1.9 g/dL Critically low 3.5-5.0 [facility] Comment on above: Performed By: #### B MP, PHOS, MG #### [facility] [address] [address] [address] Uziel Reid Albumin/Globulin [Mass ratio] 0.4 {ratio} Normal [place] Comment on above: Performed By: #### B MP, PHOS, MG #### [facility] [address] [address] [address] Uziel Reid ALP [Catalytic activity/Vol] 130 U/L Critically high 38-126 The [facility] Comment on above: Performed By: #### B MP, PHOS, MG #### [facility] [address] [address] [address] Uziel Reid ALT [Catalytic activity/Vol] 38 U/L Normal 21-72 [place] Comment on above: Performed By: #### B MP, PHOS, MG #### [facility] [address] [address] [address] Uziel Reid Anion gap [Moles/Vol] 6.0 mmol/L Normal [place] Comment on above: Performed By: #### B MP, PHOS, MG #### [facility] [address] [place] [address] Dr. Uziel Reid AST [Catalytic activity/Vol] 29 U/L Normal 17-59 [place] Comment on above: Performed By: #### B MP, PHOS, MG #### [facility] [address] [place] [address] Dr. Uziel Reid Bilirubin [Mass/Vol] 0.8 mg/dL Normal 0.2-1.3 [place] Comment on above: Performed By: #### B MP, PHOS, MG #### [facility] [address] [place] [address] Dr. Uziel Reid Calcium [Mass/Vol] 8.2 mg/dL Critically low 8.4-10.2 Th [facility] Comment on above: Performed By: #### B MP, PHOS, MG #### [facility] [address] [place] [address] Dr. Uziel Reid Chloride [Moles/Vol] 90 mmol/L Critically low 98-107 [place] Comment on above: Performed By: #### B MP, PHOS, MG #### [facility] [address] [place] [address] Dr. Uziel Reid CO2 [Moles/Vol] 39.8 mmol/L Critically high 22.0-30.0 [place] Comment on above: Performed By: #### B MP, PHOS, MG #### [facility] [address] [place] [address] Dr. Uziel Reid Creatinine [Mass/Vol] 1.12 mg/dL Normal 0.66-1.25 [place] Comment on above: Performed By: #### B MP, PHOS, MG #### [facility] [address] [place] [address] Dr. Uziel Reid EGFR-AF GRENADIAN 76 mL/min/1.73m2 Normal >=60 Th [facility] Comment on above: Performed By: #### B MP, PHOS, MG #### [facility] [address] [place] [address] Dr. Uziel Reid EGFR-NON AF GRENADIAN 62 mL/min/1.73m2 Normal >=60 [place] Comment on above: Performed By: #### B MP, PHOS, MG #### [facility] [address] [address] [address] Uziel Reid Globulin (S) [Mass/Vol] 4.7 g/dL Normal [place] Comment on above: Performed By: #### B MP, PHOS, MG #### [facility] [address] [address] [address] Uziel Reid Glucose [Mass/Vol] 131 mg/dL Critically high 74-106 [facility] Comment on above: Performed By: #### B MP, PHOS, MG #### [facility] [address] [address] [address] Uziel Reid Potassium [Moles/Vol] 2.8 mmol/L Critically low 3.4-5.0 [place] Comment on above: Result Comment: TEST REPEATED CRITICAL VALUE VERIFIED Performed By: #### B MP, PHOS, MG #### [facility] [address] [address] [address] Uziel Reid Protein [Mass/Vol] 6.6 g/dL Normal 6.1-8.2 [facility] Comment on above: Performed By: #### B MP, PHOS, MG #### [facility] [address] [address] [address] Uziel Reid Sodium [Moles/Vol] 132 mmol/L Critically low 137-145 [facility] Comment on above: Performed By: #### B MP, PHOS, MG #### [facility] [address] [address] [address] Uziel Reid Urea nitrogen [Mass/Vol] 19.0 mg/dL Normal 9.0-20.0 [place] Comment on above: Performed By: #### B MP, PHOS, MG #### [facility] [address] [address] [address] Uziel Reid Urea nitrogen/Creatinine [Mass ratio] 17.0 mg/mg Normal [place] Comment on above: Performed By: #### B MP, PHOS, MG #### [facility] [address] [place] [address] Dr. Uziel Reid TROPONIN, HIGH SENSITIVITYon 08-18-2021 HSTROP 7.6 pg/mL Normal 4.0-42.2 [place] Comment on above: Result Comment: CUT- OFF POINTS HAVE BEEN ESTABLISHED BASED ON THE FOURTH UNIVERSAL DEFINITIONS OF MYOCARDIAL INFARCTION. THE UPPER REFERENCE LIMIT (URL) OF TROPONIN, DEFINED THE 99TH PERCENTILE OF cTnI DISTRIBUTION IN A REFERENCE POPULATION, HAS BEEN CONFIRMED THE DECISION THRESHOLD FOR ME DIAGNOSIS. Performed By: #### H STROPN #### [facility] [address] [place] [address] Dr. Uziel Reid MAGNESIUMon 08-10-2021 Magnesium [Mass/Vol] 2.2 mg/dL Normal 1.6-2.3 [place] Comment on above: Performed By: #### B MP, PHOS, MG #### [facility] [address] [place] [address] Dr. Uziel Reid PHOSPHORUSon 08-10-2021 Phosphate [Mass/Vol] 3.0 mg/dL Normal 2.5-4.5 [place] Comment on above: Performed By: #### B MP, PHOS, MG #### [facility] [address] [place] [address] Dr. Uziel Reid POINT OF CARE GLUCOSEon 08-01 Glucose [Mass/Vol] 135 mg/dL Critically high 74-106 T [facility] Comment on above: Performed By: #### P OCGLUC #### [facility] [address] [place] [address] Dr. Uziel Reid PROF CHEM 8 (BAS METB)on Anion gap [Moles/Vol] 1.8 mmol/L Normal [place] Comment on above: Performed By: #### B MP, PHOS, MG #### [facility] [address] [place] [address] Dr. Uziel Reid Calcium [Mass/Vol] 7.8 mg/dL Critically low 8.4-10.2 Th [facility] Comment on above: Performed By: #### B MP, PHOS, MG #### [facility] [address] [address] [address] Uziel Reid Chloride [Moles/Vol] 100 mmol/L Normal 98-107 [place] Comment on above: Performed By: #### B MP, PHOS, MG #### [facility] [address] [place] [address] Dr. Uziel Reid CO2 [Moles/Vol] 37.0 mmol/L Critically high 22.0-30.0 [place] Comment on above: Performed By: #### B MP, PHOS, MG #### [facility] [address] [place] [address] Dr. Uziel Reid Creatinine [Mass/Vol] 0.73 mg/dL Normal 0.66-1.25 [place] Comment on above: Performed By: #### B MP, PHOS, MG #### [facility] [address] [place] [address] Dr. Uziel Reid EGFR-AF GRENADIAN >60 Normal >=60 [facility] Comment on above: Performed By: #### B MP, PHOS, MG #### [facility] [address] [place] [address] Dr. Uziel Reid EGFR-NON AF GRENADIAN >60 Normal >=60 [place] Comment on above: Performed By: #### B MP, PHOS, MG #### [facility] [address] [place] [address] Dr. Uziel Reid Glucose [Mass/Vol] 136 mg/dL Critically high 74-106 [facility] Comment on above: Performed By: #### B MP, PHOS, MG #### [facility] [address] [place] [address] Dr. Uziel Reid Potassium [Moles/Vol] 3.8 mmol/L Normal 3.4-5.0 [place] Comment on above: Performed By: #### B MP, PHOS, MG #### [facility] [address] [place] [address] Dr. Uziel Reid Sodium [Moles/Vol] 135 mmol/L Critically low 137-145 Th e [facility] Comment on above: Performed By: #### B MP, PHOS, MG #### [facility] [address] [place] [address] Dr. Uziel Reid Urea nitrogen [Mass/Vol] 16.0 mg/dL Normal 9.0-20.0 [place] Comment on above: Performed By: #### B MP, PHOS, MG #### [facility] [address] [place] [address] Dr. Uziel Reid Urea nitrogen/Creatinine [Mass ratio] 21.9 mg/mg Normal [place] Comment on above: Performed By: #### B MP, PHOS, MG #### [facility] [address] [place] [address] Dr. Uziel Reid BNPon 08-09-2021 Natriuretic peptide B (Bld) [Mass/Vol] 301.0 pg/mL Normal <=1,800.0 [place] Comment on above: Performed By: #### B MP, PHOS, MG #### [facility] [address] [place] [address] Dr. Uziel Reid MAGNESIUMon 08-09-2021 Magnesium [Mass/Vol] 2.4 mg/dL Critically high 1.6-2.3 [place] Comment on above: Performed By: #### B MP, PHOS, MG #### [facility] [address] [place] [address] Dr. Uziel Reid PHOSPHORUSon 08-09-2021 Phosphate [Mass/Vol] 3.1 mg/dL Normal 2.5-4.5 [place] Comment on above: Performed By: #### B MP, PHOS, MG #### [facility] [address] [place] [address] Dr. Uziel Reid POINT OF CARE GLUCOSEon Glucose [Mass/Vol] 158 mg/dL Critically high 74-106 [facility] Comment on above: Performed By: #### B MP, PHOS, MG #### [facility] [address] [place] [address] Dr. Uziel Reid Glucose [Mass/Vol] 188 mg/dL Critically high 74-106 [facility] Comment on above: Performed By: #### B MP, PHOS, MG #### [facility] [address] [address] [address] Uziel Reid PROF CHEM 8 (BAS METB)on Anion gap [Moles/Vol] 4.8 mmol/L Normal [place] Comment on above: Performed By: #### B MP, PHOS, MG #### [facility] [address] [place] [address] Dr. Uziel Reid Calcium [Mass/Vol] 7.5 mg/dL Critically low 8.4-10.2 Th [facility] Comment on above: Performed By: #### B MP, PHOS, MG #### [facility] [address] [place] [address] Dr. Uziel Reid Chloride [Moles/Vol] 101 mmol/L Normal 98-107 [place] Comment on above: Performed By: #### B MP, PHOS, MG #### [facility] [address] [place] [address] Dr. Uziel Reid CO2 [Moles/Vol] 36.9 mmol/L Critically high 22.0-30.0 [place] Comment on above: Performed By: #### B MP, PHOS, MG #### [facility] [address] [place] [address] Dr. Uziel Reid Creatinine [Mass/Vol] 0.64 mg/dL Critically low 0.66-1.25 [place] Comment on above: Performed By: #### B MP, PHOS, MG #### [facility] [address] [place] [address] Dr. Uziel Reid EGFR-AF GRENADIAN >60 Normal >=60 [facility] Comment on above: Performed By: #### B MP, PHOS, MG #### [facility] [address] [place] [address] Dr. Uziel Reid EGFR-NON AF GRENADIAN >60 Normal >=60 [place] Comment on above: Performed By: #### B MP, PHOS, MG #### [facility] [address] [address] [address] Uziel Reid Glucose [Mass/Vol] 122 mg/dL Critically high 74-106 [facility] Comment on above: Performed By: #### B MP, PHOS, MG #### [facility] [address] [address] [address] Uziel Reid Potassium [Moles/Vol] 3.7 mmol/L Normal 3.4-5.0 [place] Comment on above: Performed By: #### B MP, PHOS, MG #### [facility] [address] [place] [address] Dr. Uziel Reid Sodium [Moles/Vol] 139 mmol/L Normal 137-145 [facility] Comment on above: Performed By: #### B MP, PHOS, MG #### [facility] [address] [place] [address] Dr. Uziel Reid Urea nitrogen [Mass/Vol] 21.0 mg/dL Critically high 9.0-20.0 [place] Comment on above: Performed By: #### B MP, PHOS, MG #### [facility] [address] [place] [address] Dr. Uziel Reid Urea nitrogen/Creatinine [Mass ratio] 32.8 mg/mg Normal [place] Comment on above: Performed By: #### B MP, PHOS, MG #### [facility] [address] [place] [address] Dr. Uziel Reid XR CHEST 2 Von [...] by: DOMINIC STEVE Date: 2021-08-09 15:11 Normal [place] MAGNESIUMon 08-08-2021 Magnesium [Mass/Vol] 2.5 mg/dL Critically high 1.6-2.3 [place] Comment on above: Performed By: #### B MP, PHOS, MG #### [facility] [address] [place] [address] Dr. Uziel Reid PHOSPHORUSon 08-08-2021 Phosphate [Mass/Vol] 2.4 mg/dL Critically low 2.5-4.5 [place] Comment on above: Performed By: #### B MP, PHOS, MG #### [facility] [address] [place] [address] Dr. Uziel Reid PROF CHEM 8 (BAS METB)on Anion gap [Moles/Vol] 5.7 mmol/L Normal [place] Comment on above: Performed By: #### B MP, PHOS, MG #### [facility] [address] [place] [address] Dr. Uziel Reid Calcium [Mass/Vol] 7.3 mg/dL Critically low 8.4-10.2 Th [facility] Comment on above: Performed By: #### B MP, PHOS, MG #### [facility] [address] [place] [address] Dr. Uziel Reid Chloride [Moles/Vol] 102 mmol/L Normal 98-107 [place] Comment on above: Performed By: #### B MP, PHOS, MG #### [facility] [address] [place] [address] Dr. Uziel Reid CO2 [Moles/Vol] 34.6 mmol/L Critically high 22.0-30.0 [place] Comment on above: Performed By: #### B MP, PHOS, MG #### [facility] [address] [place] [address] Dr. Uziel Reid Creatinine [Mass/Vol] 0.64 mg/dL Critically low 0.66-1.25 [place] Comment on above: Performed By: #### B MP, PHOS, MG #### [facility] [address] [address] [address] Uziel Reid EGFR-AF GRENADIAN >60 Normal >=60 [facility] Comment on above: Performed By: #### B MP, PHOS, MG #### [facility] [address] [address] [address] Uziel Reid EGFR-NON AF GRENADIAN >60 Normal >=60 [place] Comment on above: Performed By: #### B MP, PHOS, MG #### [facility] [address] [place] [address] Dr. Uziel Reid Glucose [Mass/Vol] 259 mg/dL Critically high 74-106 [facility] Comment on above: Performed By: #### B MP, PHOS, MG #### [facility] [address] [place] [address] Dr. Uziel Reid Potassium [Moles/Vol] 3.3 mmol/L Critically low 3.4-5.0 [place] Comment on above: Performed By: #### B MP, PHOS, MG #### [facility] [address] [place] [address] Dr. Uziel Reid Sodium [Moles/Vol] 139 mmol/L Normal 137-145 [facility] Comment on above: Performed By: #### B MP, PHOS, MG #### [facility] [address] [place] [address] Dr. Uziel Reid Urea nitrogen [Mass/Vol] 19.0 mg/dL Normal 9.0-20.0 [place] Comment on above: Performed By: #### B MP, PHOS, MG #### [facility] [address] [place] [address] Dr. Uziel Reid Urea nitrogen/Creatinine [Mass ratio] 29.7 mg/mg Normal [place] Comment on above: Performed By: #### B MP, PHOS, MG #### [facility] [address] [place] [address] Dr. Uziel Reid MAGNESIUMon 08-07-2021 Magnesium [Mass/Vol] 2.6 mg/dL Critically high 1.6-2.3 [place] Comment on above: Performed By: #### P OCGLUC #### [facility] [address] [address] [address] Uziel Reid PHOSPHORUSon 08-07-2021 Phosphate [Mass/Vol] 2.3 mg/dL Critically low 2.5-4.5 [place] Comment on above: Performed By: #### B MP, PHOS, MG #### [facility] [address] [place] [address] Dr. Uziel Reid POINT OF CARE GLUCOSEon Glucose [Mass/Vol] 191 mg/dL Critically high 74-106 [facility] Comment on above: Performed By: #### B MP, PHOS, MG #### [facility] [address] [place] [address] Dr. Uziel Reid PROF CHEM 8 (BAS METB)on Anion gap [Moles/Vol] 1.8 mmol/L Normal [place] Comment on above: Performed By: #### P OCGLUC #### [facility] [address] [place] [address] Dr. Uziel Reid Calcium [Mass/Vol] 7.4 mg/dL Critically low 8.4-10.2 Th [facility] Comment on above: Performed By: #### P OCGLUC #### [facility] [address] [place] [address] Dr. Uziel Reid Chloride [Moles/Vol] 106 mmol/L Normal 98-107 [place] Comment on above: Performed By: #### P OCGLUC #### [facility] [address] [place] [address] Dr. Uziel Reid CO2 [Moles/Vol] 38.3 mmol/L Critically high 22.0-30.0 [place] Comment on above: Performed By: #### P OCGLUC #### [facility] [address] [place] [address] Dr. Uziel Reid Creatinine [Mass/Vol] 0.65 mg/dL Critically low 0.66-1.25 [place] Comment on above: Performed By: #### P OCGLUC #### [facility] [address] [address] [address] Uziel Reid EGFR-AF GRENADIAN >60 Normal >=60 [facility] Comment on above: Performed By: #### P OCGLUC #### [facility] [address] [address] [address] Uziel Reid EGFR-NON AF GRENADIAN >60 Normal >=60 [place] Comment on above: Performed By: #### P OCGLUC #### [facility] [address] [address] [address] Uziel Reid Glucose [Mass/Vol] 208 mg/dL Critically high 74-106 [facility] Comment on above: Performed By: #### P OCGLUC #### [facility] [address] [address] [address] Uziel Reid Potassium [Moles/Vol] 3.1 mmol/L Critically low 3.4-5.0 [place] Comment on above: Performed By: #### P OCGLUC #### [facility] [address] [address] [address] Uziel Reid Sodium [Moles/Vol] 143 mmol/L Normal 137-145 [facility] Comment on above: Performed By: #### P OCGLUC #### [facility] [address] [place] [address] Dr. Uziel Reid Urea nitrogen [Mass/Vol] 19.0 mg/dL Normal 9.0-20.0 [place] Comment on above: Performed By: #### P OCGLUC #### [facility] [address] [address] [address] Uziel Reid Urea nitrogen/Creatinine [Mass ratio] 29.2 mg/mg Normal [place] Comment on above: Performed By: #### P OCGLUC #### [facility] [address] [address] [address] Uziel Reid CBC AUTO DIFFon 08-06-2021 BASO # 0.0 103/ul Normal 0.0-0.1 [place] Comment on above: Performed By: #### B MP, PHOS, MG #### [facility] [address] [place] [address] Dr. Uziel Reid Basophils/100 WBC (Bld) 0.2 % Normal 0.2-2.0 [place] Comment on above: Performed By: #### B MP, PHOS, MG #### [facility] [address] [place] [address] Dr. Uziel Reid EO # 0.2 103/ul Normal 0.0-0.7 [place] Comment on above: Performed By: #### B MP, PHOS, MG #### [facility] [address] [place] [address] Dr. Uziel Reid Eosinophils/100 WBC (Bld) 1.3 % Normal 0.9-7.0 [place] Comment on above: Performed By: #### B MP, PHOS, MG #### [facility] [address] [place] [address] Dr. Uziel Reid Erythrocyte distribution width (RBC) [Ratio] 13.5 % Normal 11.0-15.0 [place] Comment on above: Performed By: #### B MP, PHOS, MG #### [facility] [address] [place] [address] Dr. Uziel Reid Hematocrit (Bld) [Volume fraction] 38.6 % Critically low 42.0-54.0 [place] Comment on above: Performed By: #### B MP, PHOS, MG #### [facility] [address] [place] [address] Dr. Uziel Reid Hemoglobin (Bld) [Mass/Vol] 12.2 g/dL Critically low 14.0-18.0 [place] Comment on above: Performed By: #### B MP, PHOS, MG #### [facility] [address] [place] [address] Dr. Uziel Reid IG # 0.35 10e3/ul Critically high 0.00-0.03 [facility] Comment on above: Performed By: #### B MP, PHOS, MG #### [facility] [address] [place] [address] Dr. Uziel Reid IG % 2.2 % Critically high 0.0-0.5 [facility] Comment on above: Performed By: #### B MP, PHOS, MG #### [facility] [address] [place] [address] Dr. Uziel Reid LYMPH # 1.0 103/ul Critically low 1.2-3.8 [facility] Comment on above: Performed By: #### B MP, PHOS, MG #### [facility] [address] [place] [address] Dr. Uziel Reid Lymphocytes/100 WBC (Bld) 6.1 % Critically low 20.5-60.0 [facility] Comment on above: Performed By: #### B MP, PHOS, MG #### [facility] [address] [place] [address] Dr. Uziel Reid MANUAL DIFF REQ NO Normal [facility] Comment on above: Performed By: #### B MP, PHOS, MG #### [facility] [address] [place] [address] Dr. Uziel Reid MCH (RBC) [Entitic mass] 30.1 pg Normal 25.9-34.0 [facility] Comment on above: Performed By: #### B MP, PHOS, MG #### [facility] [address] [place] [address] Dr. Uziel Reid MCHC (RBC) [Mass/Vol] 31.6 g/dL Normal 29.9-35.2 [place] Comment on above: Performed By: #### B MP, PHOS, MG #### [facility] [address] [place] [address] Dr. Uziel Reid MCV (RBC) [Entitic vol] 95.3 fL Critically high 80.0-94.0 [facility] Comment on above: Performed By: #### B MP, PHOS, MG #### [facility] [address] [place] [address] Dr. Uziel Reid MONO # 1.2 103/ul Critically high 0.3-0.8 [facility] Comment on above: Performed By: #### B MP, PHOS, MG #### [facility] [address] [address] [address] Uziel Reid Monocytes/100 WBC (Bld) 7.6 % Normal 1.7-12.0 [place] Comment on above: Performed By: #### B MP, PHOS, MG #### [facility] [address] [address] [address] Uziel Reid NEUT # 13.3 103/ul Critically high 1.4-6.5 [facility] Comment on above: Performed By: #### B MP, PHOS, MG #### [facility] [address] [address] [address] Uziel Reid Neutrophils/100 WBC (Bld) 82.6 % Critically high 43.0-75.0 [place] Comment on above: Performed By: #### B MP, PHOS, MG #### [facility] [address] [address] [address] Uziel Reid Platelet mean volume (Bld) [Entitic vol] 10.0 fL Normal 9.5-13.5 [place] Comment on above: Performed By: #### B MP, PHOS, MG #### [facility] [address] [place] [address] Dr. Uziel Reid PLT 206 103/ul Normal 150-450 [place] Comment on above: Performed By: #### B MP, PHOS, MG #### [facility] [address] [address] [address] Uziel Reid RBC 4.05 106/ul Critically low 4.70-6.10 [facility] Comment on above: Performed By: #### B MP, PHOS, MG #### [facility] [address] [address] [address] Uziel Reid WBC 16.2 103/ul Critically high 4.0-11.0 [facility] Comment on above: Performed By: #### B MP, PHOS, MG #### [facility] [address] [address] [address] Uziel Reid POINT OF CARE GLUCOSEon Glucose [Mass/Vol] 202 mg/dL Critically high 74-106 [facility] Comment on above: Performed By: #### B MP, PHOS, MG #### [facility] [address] [place] [address] Dr. Uziel Reid Glucose [Mass/Vol] 192 mg/dL Critically high 74-106 [facility] Comment on above: Performed By: #### P OCGLUC #### [facility] [address] [place] [address] Dr. Uziel Reid Glucose [Mass/Vol] 234 mg/dL Critically high 74-106 [facility] Comment on above: Performed By: #### P OCGLUC #### [facility] [address] [place] [address] Dr. Uziel Reid PROF 14(COMP METB)on 022 Albumin [Mass/Vol] 1.8 g/dL Critically low 3.5-5.0 [facility] Comment on above: Performed By: #### B MP, PHOS, MG #### [facility] [address] [place] [address] Dr. Uziel Reid Albumin/Globulin [Mass ratio] 0.5 {ratio} [facility] Comment on above: Performed By: #### B MP, PHOS, MG #### [facility] [address] [place] [address] Dr. Uzeil Reid ALP [Catalytic activity/Vol] 63 U/L Normal 38-126 [place] Comment on above: Performed By: #### B MP, PHOS, MG #### [facility] [address] [place] [address] Dr. Uziel Reid ALT [Catalytic activity/Vol] 20 U/L Critically low 21-72 [place] Comment on above: Performed By: #### B MP, PHOS, MG #### [facility] [address] [place] [address] Dr. Uziel Ried Anion gap [Moles/Vol] 5.5 mmol/L Normal [place] Comment on above: Performed By: #### B MP, PHOS, MG #### [facility] [address] [address] [address] Uziel Reid AST [Catalytic activity/Vol] 17 U/L Normal 17-59 [place] Comment on above: Performed By: #### B MP, PHOS, MG #### [facility] [address] [address] [address] Uziel Reid Bilirubin [Mass/Vol] 0.4 mg/dL Normal 0.2-1.3 [place] Comment on above: Performed By: #### B MP, PHOS, MG #### [facility] [address] [address] [address] Uziel Reid Calcium [Mass/Vol] 7.3 mg/dL Critically low 8.4-10.2 Th [facility] Comment on above: Performed By: #### B MP, PHOS, MG #### [facility] [address] [place] [address] Dr. Uziel Reid Chloride [Moles/Vol] 107 mmol/L Normal 98-107 [place] Comment on above: Performed By: #### B MP, PHOS, MG #### [facility] [address] [address] [address] Uziel Reid CO2 [Moles/Vol] 34.7 mmol/L Critically high 22.0-30.0 [place] Comment on above: Performed By: #### B MP, PHOS, MG #### [facility] [address] [address] [address] Uziel Reid Creatinine [Mass/Vol] 0.64 mg/dL Critically low 0.66-1.25 [place] Comment on above: Performed By: #### B MP, PHOS, MG #### [facility] [address] [address] [address] Uziel Reid EGFR-AF GRENADIAN >60 Normal >=60 [facility] Comment on above: Performed By: #### B MP, PHOS, MG #### [facility] [address] [address] [address] Uziel Redi EGFR-NON AF GRENADIAN >60 Normal >=60 [place] Comment on above: Performed By: #### B MP, PHOS, MG #### [facility] [address] [place] [address] Dr. Uziel Reid Globulin (S) [Mass/Vol] 3.3 g/dL Normal [place] Comment on above: Performed By: #### B MP, PHOS, MG #### [facility] [address] [place] [address] Dr. Uziel Reid Glucose [Mass/Vol] 187 mg/dL Critically high 74-106 [facility] Comment on above: Performed By: #### B MP, PHOS, MG #### [facility] [address] [place] [address] Dr. Uziel Reid Potassium [Moles/Vol] 3.2 mmol/L Critically low 3.4-5.0 [place] Comment on above: Performed By: #### B MP, PHOS, MG #### [facility] [address] [place] [address] Dr. Uziel Reid Protein [Mass/Vol] 5.1 g/dL Critically low 6.1-8.2 [facility] Comment on above: Performed By: #### B MP, PHOS, MG #### [facility] [address] [place] [address] Dr. Uziel Reid Sodium [Moles/Vol] 144 mmol/L Normal 137-145 [facility] Comment on above: Performed By: #### B MP, PHOS, MG #### [facility] [address] [place] [address] Dr. Uzeil Reid Urea nitrogen [Mass/Vol] 20.0 mg/dL Normal 9.0-20.0 [place] Comment on above: Performed By: #### B MP, PHOS, MG #### [facility] [address] [place] [address] Dr. Uziel Reid Urea nitrogen/Creatinine [Mass ratio] 31.2 mg/mg Normal [place] Comment on above: Performed By: #### B MP, PHOS, MG #### [facility] [address] [place] [address] Dr. Uziel Reid XR CHEST 1 Von [...] edema. No pneumothorax. Electronically authenticated by: EDWARD SANCHEZ Date: 2021-08-06 10:15 Normal [place] POINT OF CARE GLUCOSEon Glucose [Mass/Vol] 90 mg/dL Normal 74-106 [facility] Comment on above: Performed By: #### B MP, PHOS, MG #### [facility] [address] [address] [address] Uziel Reid Glucose [Mass/Vol] 127 mg/dL Critically high 74-106 [facility] Comment on above: Performed By: #### P OCGLUC #### [facility] [address] [address] [address] Uziel Reid XR CHEST 1 Von [...] TIFFANI RENTERIA Date: 2021-08-05 21:04 Normal [facility] CBC AUTO DIFFon 08-04-2021 BASO # 0.1 103/ul Normal 0.0-0.1 [facility] Comment on above: Performed By: #### P OCGLUC #### [facility] [address] [address] [address] Uziel Reid Basophils/100 WBC (Bld) 0.5 % Normal 0.2-2.0 [place] Comment on above: Performed By: #### P OCGLUC #### [facility] [address] [address] [address] Uziel Reid EO # 0.1 103/ul Normal 0.0-0.7 [facility] Comment on above: Performed By: #### P OCGLUC #### [facility] [address] [address] [address] Uziel Reid Eosinophils/100 WBC (Bld) 0.4 % Critically low 0.9-7.0 [place] Comment on above: Performed By: #### P OCGLUC #### [facility] [address] [address] [address] Uziel Reid Erythrocyte distribution width (RBC) [Ratio] 13.4 % Normal 11.0-15.0 [facility] Comment on above: Performed By: #### P OCGLUC #### [facility] [address] [address] [address] Uziel Reid Hematocrit (Bld) [Volume fraction] 41.1 % Critically low 42.0-54.0 [place] Comment on above: Performed By: #### P OCGLUC #### [facility] [address] [address] [address] Uziel Reid Hemoglobin (Bld) [Mass/Vol] 13.1 g/dL Critically low 14.0-18.0 [place] Comment on above: Performed By: #### P OCGLUC #### [facility] [address] [address] [address] Uziel Reid IG # 0.20 10e3/ul Critically high 0.00-0.03 [facility] Comment on above: Performed By: #### P OCGLUC #### [facility] [address] [address] [address] Uziel Reid IG % 1.5 % Critically high 0.0-0.5 [facility] Comment on above: Performed By: #### P OCGLUC #### [facility] [address] [place] [address] Dr. Uziel Reid LYMPH # 0.9 103/ul Critically low 1.2-3.8 [facility] Comment on above: Performed By: #### P OCGLUC #### [facility] [address] [address] [address] Uziel Reid Lymphocytes/100 WBC (Bld) 6.5 % Critically low 20.5-60.0 [place] Comment on above: Performed By: #### P OCGLUC #### [facility] [address] [place] [address] Dr. Uziel Reid MANUAL DIFF REQ NO Normal [facility] Comment on above: Performed By: #### P OCGLUC #### [facility] [address] [address] [address] Uziel Reid MCH (RBC) [Entitic mass] 29.9 pg Normal 25.9-34.0 [place] Comment on above: Performed By: #### P OCGLUC #### [facility] [address] [address] [address] Uziel Reid MCHC (RBC) [Mass/Vol] 31.9 g/dL Normal 29.9-35.2 [facility] Comment on above: Performed By: #### P OCGLUC #### [facility] [address] [address] [address] Uziel Reid MCV (RBC) [Entitic vol] 93.8 fL Normal 80.0-94.0 [facility] Comment on above: Performed By: #### P OCGLUC #### [facility] [address] [address] [address] Uziel Reid MONO # 1.5 103/ul Critically high 0.3-0.8 [facility] Comment on above: Performed By: #### P OCGLUC #### [facility] [address] [address] [address] Uziel Reid Monocytes/100 WBC (Bld) 11.2 % Normal 1.7-12.0 [place] Comment on above: Performed By: #### P OCGLUC #### [facility] [address] [place] [address] Dr. Uziel Reid NEUT # 10.6 103/ul Critically high 1.4-6.5 [facility] Comment on above: Performed By: #### P OCGLUC #### [facility] [address] [place] [address] Dr. Uziel Reid Neutrophils/100 WBC (Bld) 79.9 % Critically high 43.0-75.0 [place] Comment on above: Performed By: #### P OCGLUC #### [facility] [address] [place] [address] Dr. Uziel Reid Platelet mean volume (Bld) [Entitic vol] 10.3 fL Normal 9.5-13.5 [facility] Comment on above: Performed By: #### P OCGLUC #### [facility] [address] [address] [address] Uziel Reid PLT 224 103/ul Normal 150-450 [facility] Comment on above: Performed By: #### P OCGLUC #### [facility] [address] [place] [address] Dr. Uziel Reid RBC 4.38 106/ul Critically low 4.70-6.10 [facility] Comment on above: Performed By: #### P OCGLUC #### [facility] [address] [address] [address] Uziel Reid WBC 13.3 103/ul Critically high 4.0-11.0 [facility] Comment on above: Performed By: #### P OCGLUC #### [facility] [address] [place] [address] Dr. Uziel Reid POINT OF CARE GLUCOSEon Glucose [Mass/Vol] 142 mg/dL Critically high 74-106 [facility] Comment on above: Performed By: #### C BCMAN #### [facility] [address] [address] [address] Uziel Reid Glucose [Mass/Vol] 119 mg/dL Critically high 74-106 [facility] Comment on above: Performed By: #### H STROPN #### [facility] [address] [place] [address] Dr. Uziel Reid PROF CHEM 8 (BAS METB)on Anion gap [Moles/Vol] 10.9 mmol/L Normal [place] Comment on above: Performed By: #### P OCGLUC #### [facility] [address] [place] [address] Dr. Uziel Reid Calcium [Mass/Vol] 7.6 mg/dL Critically low 8.4-10.2 [facility] Comment on above: Performed By: #### P OCGLUC #### [facility] [address] [place] [address] Dr. Uziel Reid Chloride [Moles/Vol] 106 mmol/L Normal 98-107 [place] Comment on above: Performed By: #### P OCGLUC #### [facility] [address] [place] [address] Dr. Uziel Reid CO2 [Moles/Vol] 23.3 mmol/L Normal 22.0-30.0 [facility] Comment on above: Performed By: #### P OCGLUC #### [facility] [address] [place] [address] Dr. Uziel Reid Creatinine [Mass/Vol] 0.58 mg/dL Critically low 0.66-1.25 [place] Comment on above: Performed By: #### P OCGLUC #### [facility] [address] [address] [address] Uziel Reid EGFR-AF GRENADIAN >60 Normal >=60 [facility] Comment on above: Performed By: #### P OCGLUC #### [facility] [address] [address] [address] Uziel Reid EGFR-NON AF GRENADIAN >60 Normal >=60 [place] Comment on above: Performed By: #### P OCGLUC #### [facility] [address] [address] [address] Uziel Reid Glucose [Mass/Vol] 128 mg/dL Critically high 74-106 [facility] Comment on above: Performed By: #### P OCGLUC #### [facility] [address] [address] [address] Uziel Reid Potassium [Moles/Vol] 4.2 mmol/L Normal 3.4-5.0 [place] Comment on above: Performed By: #### P OCGLUC #### [facility] [address] [address] [address] Uziel Reid Sodium [Moles/Vol] 136 mmol/L Critically low 137-145 Th [facility] Comment on above: Performed By: #### P OCGLUC #### [facility] [address] [address] [address] Uziel Reid Urea nitrogen [Mass/Vol] 32.0 mg/dL Critically high 9.0-20.0 [place] Comment on above: Performed By: #### P OCGLUC #### [facility] [address] [address] [address] Uziel Reid Urea nitrogen/Creatinine [Mass ratio] 55.2 mg/mg Normal [place] Comment on above: Performed By: #### P OCGLUC #### [facility] [address] [address] [address] Uziel Reid XR KUB 1 VIEWon [...] ZHANE DUCKWORTH Date: 2021-08-04 15:49 Normal [facility] POINT OF CARE GLUCOSEon -0 Glucose [Mass/Vol] 132 mg/dL Critically high 74-106 [facility] Comment on above: Performed By: #### C FERDINAND #### [facility] [address] [place] [address] Dr. Uziel Reid Glucose [Mass/Vol] 122 mg/dL Critically high -106 [facility] Comment on above: Performed By: #### B LIA TALBOT MG #### [facility] [address] [place] [address] Dr. Uziel Reid Glucose [Mass/Vol] 124 mg/dL Critically high [facility]106 [facility] Comment on above: Performed By: #### B LIA TALBOT MG #### [facility] [address] [place] [address] Dr. Uziel Reid POINT OF CARE GLUCOSEon 0 Glucose [Mass/Vol] 127 mg/dL Critically high -106 [facility] Comment on above: Performed By: #### B LIA TALBOT MG #### [facility] [address] [place] [address] Dr. Uziel Reid XR KUB 1 VIEWon [...] ROBERT BASILIO Date: 2021-08-02 15:21 Normal [facility] XR KUB 1 VIEW KUB; 08/02/2021 8:48 [...] 1. As above. Electronically authenticated by: GERARDO ESPINOSA Date: 2021-08-02 12:31 Normal [facility] CBC W MANUAL DIFFon 08-01-19 22 ATYPICAL LYMPH # Normal [facility] Comment on above: Performed By: #### B YEISON TALBOTS MG #### [facility] [address] [place] [address] Dr. Uziel Reid ATYPICAL LYMPH % Normal [facility] Comment on above: Performed By: #### B DAHIANA PHOS, MG #### [facility] [address] [address] [address] Uziel Reid BAND # 0.7 103/ul Critically high 0.0-0.3 [facility] Comment on above: Performed By: #### B DAHIANA PHOS, MG #### [facility] [address] [place] [address] Dr. Uziel Reid BAND % 9 % Critically high 0-5 [facility] Comment on above: Performed By: #### B MP PHOS, MG #### [facility] [address] [address] [address] Uziel Reid BASOM # 0.00 103/ul Normal 0.00-0.10 [place] Comment on above: Performed By: #### B MP, PHOS, MG #### [facility] [address] [address] [address] Uziel Reid BASOM % 0.0 % Critically low 0.2-2.0 [facility] Comment on above: Performed By: #### B MP, PHOS, MG #### [facility] [address] [address] [address] Uziel Reid BLAST # Normal [place] Comment on above: Performed By: #### B MP, PHOS, MG #### [facility] [address] [address] [address] Uziel Reid BLAST % Normal [place] Comment on above: Performed By: #### B MP, PHOS, MG #### [facility] [address] [address] [address] Uziel Reid CORRECTED WBC Normal 4.0-11.0 [facility] Comment on above: Performed By: #### B MP, PHOS, MG #### [facility] [address] [address] [address] Uziel Reid EOS # 0.00 103/ul Normal 0.00-0.70 [place] Comment on above: Performed By: #### B MP, PHOS, MG #### [facility] [address] [address] [address] Uziel Reid EOS% 0.0 % Critically low 0.9-7.0 [facility] Comment on above: Performed By: #### B MP, PHOS, MG #### [facility] [address] [address] [address] Uziel Reid HCT 38.1 % Critically low 42.0-54.0 [facility] Comment on above: Performed By: #### B MP, PHOS, MG #### [facility] [address] [place] [address] Dr. Uziel Reid HGB 12.2 g/dl Critically low 14.0-18.0 [facility] Comment on above: Performed By: #### B MP, PHOS, MG #### [facility] [address] [address] [address] Uziel Reid LYMPHM # 0.66 103/ul Critically low 1.20-3.80 [facility] Comment on above: Performed By: #### B MP, PHOS, MG #### [facility] [address] [address] [address] Uziel Reid LYMPHM% 9.0 % Critically low 20.5-60.0 [facility] Comment on above: Performed By: #### B MP, PHOS, MG #### [facility] [address] [place] [address] Dr. Uziel Reid MCH 29.8 pg Normal 25.9-34.0 [place] Comment on above: Performed By: #### B MP, PHOS, MG #### [facility] [address] [place] [address] Dr. Uziel Reid MCHC 32.0 g/dl Normal 29.9-35.2 [place] Comment on above: Performed By: #### B MP, PHOS, MG #### [facility] [address] [place] [address] Dr. Uziel Reid MCV 92.9 fL Normal 80.0-94.0 [place] Comment on above: Performed By: #### B MP, PHOS, MG #### [facility] [address] [place] [address] Dr. Uziel Reid METAMYELOCYTE # Normal [facility] Comment on above: Performed By: #### B MP, PHOS, MG #### [facility] [address] [place] [address] Dr. Uziel Reid METAMYELOCYTE % Normal [facility] Comment on above: Performed By: #### B MP, PHOS, MG #### [facility] [address] [place] [address] Dr. Uziel Reid MONOM# 1.02 103/ul Critically high 0.30-0.80 [facility] Comment on above: Performed By: #### B MP, PHOS, MG #### [facility] [address] [address] [address] Uziel Reid MONOM% 14.0 % Critically high 1.7-12.0 [facility] Comment on above: Performed By: #### B MP, PHOS, MG #### [facility] [address] [address] [address] Uziel Reid MPV 9.9 fL Normal 9.5-13.5 [place] Comment on above: Performed By: #### B MP, PHOS, MG #### [facility] [address] [address] [address] Uziel Reid MYELOCYTE # Normal [place] Comment on above: Performed By: #### B MP, PHOS, MG #### [facility] [address] [place] [address] Dr. Uziel Reid MYELOCYTE % Normal [place] Comment on above: Performed By: #### B MP, PHOS, MG #### [facility] [address] [address] [address] Uziel Reid NRBC Normal [place] Comment on above: Performed By: #### B MP, PHOS, MG #### [facility] [address] [place] [address] Dr. Uziel Reid PLT 237 103/ul Normal 150-450 [place] Comment on above: Performed By: #### B MP, PHOS, MG #### [facility] [address] [address] [address] Uziel Reid RBC 4.10 106/ul Critically low 4.70-6.10 [facility] Comment on above: Performed By: #### B MP, PHOS, MG #### [facility] [address] [place] [address] Dr. Uziel Reid RDW 13.5 % Normal 11.0-15.0 [place] Comment on above: Performed By: #### B MP, PHOS, MG #### [facility] [address] [place] [address] Dr. Uziel Reid SEG # 4.96 103/ul Normal 1.40-6.50 [place] Comment on above: Performed By: #### B DAHIANA PHOS, MG #### [facility] [address] [place] [address] Dr. Uziel Reid SEG % 68.0 % Normal 43.0-75.0 [place] Comment on above: Performed By: #### B DAHIANA PHOS, MG #### [facility] [address] [place] [address] Dr. Uziel Reid WBC 7.3 103/ul Normal 4.0-11.0 [place] Comment on above: Performed By: #### B YEISON TALBOTS, MG #### [facility] [address] [place] [address] Dr. Uziel Reid POINT OF CARE GLUCOSEon Glucose [Mass/Vol] 158 mg/dL Critically high 74-106 [facility] Comment on above: Performed By: #### B YEISON TALBOTS, MG #### [facility] [address] [place] [address] Dr. Uziel Reid PROF 14(COMP METB)on 022 Albumin [Mass/Vol] 2.4 g/dL Critically low 3.5-5.0 [facility] Comment on above: Performed By: #### C FERDINAND #### [facility] [address] [place] [address] Dr. Uziel Reid Albumin/Globulin [Mass ratio] 0.5 {ratio} Normal [place] Comment on above: Performed By: #### C FERDINAND #### [facility] [address] [place] [address] Dr. Uziel Reid ALP [Catalytic activity/Vol] 84 U/L Normal 38-126 [place] Comment on above: Performed By: #### C FERDINAND #### [facility] [address] [place] [address] Dr. Uziel Reid ALT [Catalytic activity/Vol] 26 U/L Normal 21-72 [place] Comment on above: Performed By: #### C FERDINAND #### [facility] [address] [address] [address] Uziel Reid Anion gap [Moles/Vol] 9.8 mmol/L Normal [place] Comment on above: Performed By: #### C FERDINAND #### [facility] [address] [address] [address] Uziel Reid AST [Catalytic activity/Vol] 17 U/L Normal 17-59 [place] Comment on above: Performed By: #### C FERDINAND #### [facility] [address] [address] [address] Uziel Reid Bilirubin [Mass/Vol] 0.9 mg/dL Normal 0.2-1.3 [place] Comment on above: Performed By: #### C FERDINAND #### [facility] [address] [address] [address] Uziel Reid Calcium [Mass/Vol] 8.9 mg/dL Normal 8.4-10.2 [facility] Comment on above: Performed By: #### C FERDINAND #### [facility] [address] [address] [address] Uziel Reid Chloride [Moles/Vol] 94 mmol/L Critically low 98-107 [place] Comment on above: Performed By: #### C FERDINAND #### [facility] [address] [address] [address] Uziel Reid CO2 [Moles/Vol] 30.9 mmol/L Critically high 22.0-30.0 [facility] Comment on above: Performed By: #### C FERDINAND #### [facility] [address] [address] [address] Uziel Reid Creatinine [Mass/Vol] 1.21 mg/dL Normal 0.66-1.25 [place] Comment on above: Performed By: #### C FERDINAND #### [facility] [address] [address] [address] Uziel Reid EGFR-AF GRENADIAN >60 Normal >=60 [facility] Comment on above: Performed By: #### C FERDINAND #### [facility] [address] [address] [address] Uziel Reid EGFR-NON AF GRENADIAN 57 mL/min/1.73m2 Critically low >=60 [place] Comment on above: Performed By: #### C FERDINAND #### [facility] [address] [address] [address] Uziel Reid Globulin (S) [Mass/Vol] 4.5 g/dL Normal [place] Comment on above: Performed By: #### C FERDINAND #### [facility] [address] [address] [address] Uziel Reid Glucose [Mass/Vol] 166 mg/dL Critically high 74-106 [facility] Comment on above: Performed By: #### C FERDINAND #### [facility] [address] [address] [address] Uziel Reid Potassium [Moles/Vol] 3.7 mmol/L Normal 3.4-5.0 [place] Comment on above: Performed By: #### C FERDINAND #### [facility] [address] [address] [address] Uziel Reid Protein [Mass/Vol] 6.9 g/dL Normal 6.1-8.2 [facility] Comment on above: Performed By: #### C FERDINAND #### [facility] [address] [address] [address] Uziel Reid Sodium [Moles/Vol] 131 mmol/L Critically low 137-145 Th [facility] Comment on above: Performed By: #### C FERDINAND #### [facility] [address] [address] [address] Uziel Reid Urea nitrogen [Mass/Vol] 72.0 mg/dL Critically high 9.0-20.0 [place] Comment on above: Performed By: #### C FERDINAND #### [facility] [address] [place] [address] Dr. Uziel Reid Urea nitrogen/Creatinine [Mass ratio] 59.5 mg/mg Normal [place] Comment on above: Performed By: #### C FERDINAND #### [facility] [address] [id number] Uziel Reid XR KUB 1 VIEWon [...] by: ROBERT BASILIO Date: 2021-08-01 20:28 Normal [place] XR KUB 1 VIEW EXAMINATION: XR KUB [...] by: ROBERT BASILIO Date: 2021-08-01 13:26 Normal [place] XR SMALL BOWEL FOLLOW THOUGH on 08-01-2021 XR SMALL BOWEL FOLLOW THOUGH EXAMINATION: XR SMALL BOWEL FOLLOW THOUGH HISTORY: Swollen abdomen COMPARISON: No relevant comparison available. FLUOROSCOPY TIME: Fluoro time - none. TECHNIQUE: Small bowel series was performed in the usual manner. No raw material handler abdominal radiograph was performed. Standard level fluoroscopic [...] by: ROBERT BASILIO Date: 2021-08-01 17:36 Normal [place] POINT OF CARE GLUCOSEon 12-3 Glucose [Mass/Vol] 178 mg/dL Critically high 74-106 [facility] Comment on above: Performed By: #### C BCMAN #### [facility] [address] [place] [address] Dr. Uziel Reid Glucose [Mass/Vol] 146 mg/dL Critically high 74-106 [facility] Comment on above: Performed By: #### P OCGLUC #### [facility] [address] [place] [address] Dr. Uziel Reid BNPon 07-30-2021 Natriuretic peptide B (Bld) [Mass/Vol] 800.0 pg/mL Normal <=1,800.0 [place] Comment on above: Performed By: #### B MP, PHOS, MG #### [facility] [address] [place] [address] Dr. Uziel Reid CBC AUTO DIFFon 07-30-2021 BASO # 0.0 103/ul Normal 0.0-0.1 [place] Comment on above: Performed By: #### B MP, PHOS, MG #### [facility] [address] [place] [address] Dr. Uziel Reid Basophils/100 WBC (Bld) 0.1 % Critically low 0.2-2.0 [place] Comment on above: Performed By: #### B MP, PHOS, MG #### [facility] [address] [place] [address] Dr. Uziel Reid EO # 0.0 103/ul Normal 0.0-0.7 [place] Comment on above: Performed By: #### B MP, PHOS, MG #### [facility] [address] [place] [address] Dr. Uziel Reid Eosinophils/100 WBC (Bld) 0.1 % Critically low 0.9-7.0 [place] Comment on above: Performed By: #### B MP, PHOS, MG #### [facility] [address] [place] [address] Dr. Uziel Reid Erythrocyte distribution width (RBC) [Ratio] 13.8 % Normal 11.0-15.0 [place] Comment on above: Performed By: #### B MP, PHOS, MG #### [facility] [address] [place] [address] Dr. Uziel Reid Hematocrit (Bld) [Volume fraction] 35.1 % Critically low 42.0-54.0 [place] Comment on above: Performed By: #### B MP, PHOS, MG #### [facility] [address] [place] [address] Dr. Uziel Reid Hemoglobin (Bld) [Mass/Vol] 10.8 g/dL Critically low 14.0-18.0 [place] Comment on above: Performed By: #### B MP, PHOS, MG #### [facility] [address] [place] [address] Dr. Uziel Reid IG # 0.15 10e3/ul Critically high 0.00-0.03 [facility] Comment on above: Performed By: #### B MP, PHOS, MG #### [facility] [address] [place] [address] Dr. Uziel Reid IG % 0.9 % Critically high 0.0-0.5 [facility] Comment on above: Performed By: #### B MP, PHOS, MG #### [facility] [address] [place] [address] Dr. Uziel Reid LYMPH # 0.8 103/ul Critically low 1.2-3.8 [facility] Comment on above: Performed By: #### B MP, PHOS, MG #### [facility] [address] [place] [address] Dr. Uziel Reid Lymphocytes/100 WBC (Bld) 5.2 % Critically low 20.5-60.0 [place] Comment on above: Performed By: #### B MP, PHOS, MG #### [facility] [address] [place] [address] Dr. Uziel Reid MANUAL DIFF REQ NO Normal [facility] Comment on above: Performed By: #### B MP, PHOS, MG #### [facility] [address] [place] [address] Dr. Uziel Reid MCH (RBC) [Entitic mass] 30.1 pg Normal 25.9-34.0 [place] Comment on above: Performed By: #### B MP, PHOS, MG #### [facility] [address] [place] [address] Dr. Uziel Reid MCHC (RBC) [Mass/Vol] 30.8 g/dL Normal 29.9-35.2 [facility] Comment on above: Performed By: #### B MP, PHOS, MG #### [facility] [address] [place] [address] Dr. Uziel Reid MCV (RBC) [Entitic vol] 97.8 fL Critically high 80.0-94.0 [place] Comment on above: Performed By: #### B MP, PHOS, MG #### [facility] [address] [place] [address] Dr. Uziel Reid MONO # 1.2 103/ul Critically high 0.3-0.8 [facility] Comment on above: Performed By: #### B MP, PHOS, MG #### [facility] [address] [place] [address] Dr. Uziel Reid Monocytes/100 WBC (Bld) 7.5 % Normal 1.7-12.0 [place] Comment on above: Performed By: #### B MP, PHOS, MG #### [facility] [address] [place] [address] Dr. Uziel Reid NEUT # 14.0 103/ul Critically high 1.4-6.5 [facility] Comment on above: Performed By: #### B MP, PHOS, MG #### [facility] [address] [place] [address] Dr. Uziel Reid Neutrophils/100 WBC (Bld) 86.2 % Critically high 43.0-75.0 [place] Comment on above: Performed By: #### B MP, PHOS, MG #### [facility] [address] [place] [address] Dr. Uziel Reid Platelet mean volume (Bld) [Entitic vol] 10.7 fL Normal 9.5-13.5 [place] Comment on above: Performed By: #### B MP, PHOS, MG #### [facility] [address] [place] [address] Dr. Uziel Reid PLT 165 103/ul Normal 150-450 [place] Comment on above: Performed By: #### B MP, PHOS, MG #### [facility] [address] [address] [address] Uziel Reid RBC 3.59 106/ul Critically low 4.70-6.10 [facility] Comment on above: Performed By: #### B MP, PHOS, MG #### [facility] [address] [place] [address] Dr. Uziel Reid WBC 16.2 103/ul Critically high 4.0-11.0 [facility] Comment on above: Performed By: #### B MP, PHOS, MG #### [facility] [address] [place] [address] Dr. Uziel Reid PROF CHEM 8 (BAS METB)on Anion gap [Moles/Vol] 8.9 mmol/L Normal [place] Comment on above: Performed By: #### B MP, PHOS, MG #### [facility] [address] [place] [address] Dr. Uziel Reid Calcium [Mass/Vol] 7.4 mg/dL Critically low 8.4-10.2 [facility] Comment on above: Performed By: #### B MP, PHOS, MG #### [facility] [address] [place] [address] Dr. Uziel Reid Chloride [Moles/Vol] 96 mmol/L Critically low 98-107 [place] Comment on above: Performed By: #### B MP, PHOS, MG #### [facility] [address] [place] [address] Dr. Uziel Reid CO2 [Moles/Vol] 30.0 mmol/L Normal 22.0-30.0 [facility] Comment on above: Performed By: #### B MP, PHOS, MG #### [facility] [address] [address] [address] Uziel Reid Creatinine [Mass/Vol] 1.12 mg/dL Normal 0.66-1.25 [place] Comment on above: Performed By: #### B MP, PHOS, MG #### [facility] [address] [address] [address] Uziel Reid EGFR-AF GRENADIAN >60 Normal >=60 [facility] Comment on above: Performed By: #### B MP, PHOS, MG #### [facility] [address] [address] [address] Uziel Reid EGFR-NON AF GRENADIAN >60 Normal >=60 [place] Comment on above: Performed By: #### B MP, PHOS, MG #### [facility] [address] [address] [address] Uziel Reid Glucose [Mass/Vol] 125 mg/dL Critically high 74-106 [facility] Comment on above: Performed By: #### B MP, PHOS, MG #### [facility] [address] [address] [address] Uziel Reid Potassium [Moles/Vol] 3.9 mmol/L Normal 3.4-5.0 [place] Comment on above: Performed By: #### B MP, PHOS, MG #### [facility] [address] [address] [address] Uziel Reid Sodium [Moles/Vol] 131 mmol/L Critically low 137-145 [facility] Comment on above: Performed By: #### B MP, PHOS, MG #### [facility] [address] [place] [address] Dr. Uziel Reid Urea nitrogen [Mass/Vol] 37.0 mg/dL Critically high 9.0-20.0 [place] Comment on above: Performed By: #### B MP, PHOS, MG #### [facility] [address] [place] [address] Dr. Uziel Reid Urea nitrogen/Creatinine [Mass ratio] 33.0 mg/mg Normal [place] Comment on above: Performed By: #### B LIA TALBOT MG #### [facility] [address] [address] [address] Uziel Reid XR ABD FLAT_UPon 07-30-2021 [...] by: ZHANE DUCKWORTH Date: 2021-07-30 09:08 Normal [place] XR CHEST 2 Von 07-30-2021 XR CHEST [...] by: ZHANE DUCKWORTH Date: 2021-07-30 09:05 Normal [place] POINT OF CARE GLUCOSEon -2 Glucose [Mass/Vol] 144 mg/dL Critically high 74-106 [facility] Comment on above: Performed By: #### C FERDINAND #### [facility] [address] [address] [address] Uziel Reid Glucose [Mass/Vol] 147 mg/dL Critically high 74-106 [facility] Comment on above: Performed By: #### B LIA TALBOT MG #### [facility] [address] [address] [address] Uziel Reid AMYLASEon 07-28-2021 AMYL <30 Critically low 31-110 [facility] Comment on above: Performed By: #### H STROPN #### [facility] [address] [place] [address] Dr. Uziel Reid CBC AUTO DIFFon 07-28-2021 BASO # 0.1 103/ul Normal 0.0-0.1 [facility] Comment on above: Performed By: #### B MP, PHOS, MG #### [facility] [address] [place] [address] Dr. Uziel Reid Basophils/100 WBC (Bld) 0.6 % Normal 0.2-2.0 [facility] Comment on above: Performed By: #### B MP, PHOS, MG #### [facility] [address] [place] [address] Dr. Uziel Reid EO # 0.2 103/ul Normal 0.0-0.7 [facility] Comment on above: Performed By: #### B MP, PHOS, MG #### [facility] [address] [place] [address] Dr. Uziel Reid Eosinophils/100 WBC (Bld) 1.8 % Normal 0.9-7.0 [facility] Comment on above: Performed By: #### B MP, PHOS, MG #### [facility] [address] [place] [address] Dr. Uziel Reid Erythrocyte distribution width (RBC) [Ratio] 13.0 % Normal 11.0-15.0 [facility] Comment on above: Performed By: #### B MP, PHOS, MG #### [facility] [address] [place] [address] Dr. Uziel Reid Hematocrit (Bld) [Volume fraction] 38.9 % Critically low 42.0-54.0 [place] Comment on above: Performed By: #### B MP, PHOS, MG #### [facility] [address] [place] [address] Dr. Uziel Reid Hemoglobin (Bld) [Mass/Vol] 12.6 g/dL Critically low 14.0-18.0 [facility] Comment on above: Performed By: #### B MP, PHOS, MG #### [facility] [address] [place] [address] Dr. Uziel Reid IG # 0.05 10e3/ul Critically high 0.00-0.03 [facility] Comment on above: Performed By: #### B MP, PHOS, MG #### [facility] [address] [place] [address] Dr. Uziel Reid IG % 0.4 % Normal 0.0-0.5 [place] Comment on above: Performed By: #### B MP, PHOS, MG #### [facility] [address] [place] [address] Dr. Uziel Reid LYMPH # 1.2 103/ul Normal 1.2-3.8 [place] Comment on above: Performed By: #### B MP, PHOS, MG #### [facility] [address] [place] [address] Dr. Uziel Reid Lymphocytes/100 WBC (Bld) 10.0 % Critically low 20.5-60.0 [place] Comment on above: Performed By: #### B MP, PHOS, MG #### [facility] [address] [place] [address] Dr. Uziel Reid MANUAL DIFF REQ NO Normal [facility] Comment on above: Performed By: #### B MP, PHOS, MG #### [facility] [address] [place] [address] Dr. Uziel Reid MCH (RBC) [Entitic mass] 30.3 pg Normal 25.9-34.0 [place] Comment on above: Performed By: #### B MP, PHOS, MG #### [facility] [address] [place] [address] Dr. Uziel Reid MCHC (RBC) [Mass/Vol] 32.4 g/dL Normal 29.9-35.2 [place] Comment on above: Performed By: #### B MP, PHOS, MG #### [facility] [address] [place] [address] Dr. Uziel Reid MCV (RBC) [Entitic vol] 93.5 fL Normal 80.0-94.0 [facility] Comment on above: Performed By: #### B MP, PHOS, MG #### [facility] [address] [place] [address] Dr. Uziel Reid MONO # 1.0 103/ul Critically high 0.3-0.8 [facility] Comment on above: Performed By: #### B MP, PHOS, MG #### [facility] [address] [place] [address] Dr. Uziel Reid Monocytes/100 WBC (Bld) 8.6 % Normal 1.7-12.0 [facility] Comment on above: Performed By: #### B MP, PHOS, MG #### [facility] [address] [place] [address] Dr. Uziel Reid NEUT # 9.2 103/ul Critically high 1.4-6.5 [facility] Comment on above: Performed By: #### B MP, PHOS, MG #### [facility] [address] [place] [address] Dr. Uziel Reid Neutrophils/100 WBC (Bld) 78.6 % Critically high 43.0-75.0 [facility] Comment on above: Performed By: #### B MP, PHOS, MG #### [facility] [address] [place] [address] Dr. Uziel Reid Platelet mean volume (Bld) [Entitic vol] 10.9 fL Normal 9.5-13.5 [facility] Comment on above: Performed By: #### B MP, PHOS, MG #### [facility] [address] [place] [address] Dr. Uziel Reid PLT 159 103/ul Normal 150-450 [facility] Comment on above: Performed By: #### B MP, PHOS, MG #### [facility] [address] [place] [address] Dr. Uziel Reid RBC 4.16 106/ul Critically low 4.70-6.10 [facility] Comment on above: Performed By: #### B LIA TALBOT MG #### [facility] [address], [place] [address] Dr. Uziel Reid WBC 11.8 103/ul Critically high 4.0-11.0 [facility] Comment on above: Performed By: #### B YEISON TALBOTS, MG #### [facility] [address], [place] [address] ABD/PELVIS WO CONon [...] ZHANE DUCKWORTH Date: 2021-07-28 07:18 Normal [facility] CULTURE BLOODon 07-28-2021 Microscopic examination of blood, culture Culture Observations: NO GROWTH AT 5 DAYS. Normal [facility] Comment on above: Performed By: #### H STROPN #### [facility] [address], [place] [address] Dr. Uziel Reid Covid-19 PCR ([facility])on 07-02 SARS-CoV-2 (COVID-19) RNA ALFONSO+probe Ql (Unsp spec) Not detected Normal NOT DETECTED [facility] Comment on above: Result Comment: This test is not yet approved or cleared by the [place] FDA. When there are no FDA-approved or cleared tests available, and other criteria are met, FDA can make tests available under an emergency access mechanism called an Emergency Use Authorization (EUA). The EUA for this test is supported by the Supervisor Coating of Health and Human Service's (HHS's) declaration [...] SARS-CoV-2. Performed By: #### C BCMAN #### [facility] [address] [place] [address] Dr. Uziel Reid LACTATE/LACTIC ACIDon 2020 Lactate [Moles/Vol] 1.2 mmol/L Normal 0.7-2.0 [facility] Comment on above: Performed By: #### B MP, PHOS, MG #### [facility] [address], [place] [address] Dr. Uziel Reid LIPASEon 07-28-2021 Lipase [Catalytic activity/Vol] 32.0 U/L Normal 23.0-300.0 [place] Comment on above: Performed By: #### H STROPN #### [facility] [address] [place] [address] Dr. Uziel Reid PROF 14(COMP METB)on 021 Albumin [Mass/Vol] 3.1 g/dL Critically low 3.5-5.0 Th e [facility] Comment on above: Performed By: #### C FERDINAND #### [facility] [address] [place] [address] Dr. Uziel Reid Albumin/Globulin [Mass ratio] 0.8 {ratio} Normal [place] Comment on above: Performed By: #### C FERDINAND #### [facility] [address] [address] [address] Uziel Reid ALP [Catalytic activity/Vol] 116 U/L Normal 38-126 [place] Comment on above: Performed By: #### C FERDINAND #### [facility] [address] [place] [address] Dr. Uziel Reid ALT [Catalytic activity/Vol] 36 U/L Normal 21-72 [place] Comment on above: Performed By: #### C FERDINAND #### [facility] [address] [place] [address] Dr. Uzeil Reid Anion gap [Moles/Vol] 11.3 mmol/L Normal [place] Comment on above: Performed By: #### C FERDINAND #### [facility] [address] [place] [address] Dr. Uziel Reid AST [Catalytic activity/Vol] 25 U/L Normal 17-59 [place] Comment on above: Performed By: #### C FERDINAND #### [facility] [address] [place] [address] Dr. Uziel Reid Bilirubin [Mass/Vol] 0.9 mg/dL Normal 0.2-1.3 [place] Comment on above: Performed By: #### C FERDINAND #### [facility] [address] [place] [address] Dr. Uziel Reid Calcium [Mass/Vol] 8.4 mg/dL Normal 8.4-10.2 [facility] Comment on above: Performed By: #### C FERDINAND #### [facility] [address] [place] [address] Dr. Uziel Reid Chloride [Moles/Vol] 97 mmol/L Critically low 98-107 [place] Comment on above: Performed By: #### C BCMAN #### [facility] [address] [address] [address] Uziel Reid CO2 [Moles/Vol] 29.4 mmol/L Normal 22.0-30.0 [facility] Comment on above: Performed By: #### C BCMAN #### [facility] [address] [address] [address] Uziel Reid Creatinine [Mass/Vol] 0.86 mg/dL Normal 0.66-1.25 [place] Comment on above: Performed By: #### C BCMAN #### [facility] [address] [place] [address] Dr. Uziel Reid EGFR-AF GRENADIAN >60 Normal >=60 [facility] Comment on above: Performed By: #### C BCMAN #### [facility] [address] [place] [address] Dr. Uziel Reid EGFR-NON AF GRENADIAN >60 Normal >=60 [place] Comment on above: Performed By: #### C BCMAN #### [facility] [address] [address] [address] Uziel Reid Globulin (S) [Mass/Vol] 4.0 g/dL Normal [place] Comment on above: Performed By: #### C BCMAN #### [facility] [address] [address] [address] Uziel Reid Glucose [Mass/Vol] 181 mg/dL Critically high 74-106 [facility] Comment on above: Performed By: #### C BCMAN #### [facility] [address] [place] [address] Dr. Uziel Reid Potassium [Moles/Vol] 3.7 mmol/L Normal 3.4-5.0 [place] Comment on above: Performed By: #### C BCMAN #### [facility] [address] [place] [address] Dr. Uziel Reid Protein [Mass/Vol] 7.1 g/dL Normal 6.1-8.2 [facility] Comment on above: Performed By: #### C FERDINAND #### [facility] [address] [address] [address] Uziel Reid Sodium [Moles/Vol] 134 mmol/L Critically low 137-145 Th e [facility] Comment on above: Performed By: #### C FERDINAND #### [facility] [address] [address] [address] Uziel Reid Urea nitrogen [Mass/Vol] 18.0 mg/dL Normal 9.0-20.0 [place] Comment on above: Performed By: #### C FERDINAND #### [facility] [address] [address] [address] Uziel Reid Urea nitrogen/Creatinine [Mass ratio] 20.9 mg/mg Normal [place] Comment on above: Performed By: #### C FERDINAND #### [facility] [address] [address] [address] Uziel Reid XR CHEST 1 Von [...] by: SUPA STONE Date: 2021-07-28 06:45 Normal [place] GLYCOHEMOGLOBIN A1Con 2020 ADA RECOMMENDATION ADA THERAPEUTIC TARGET 6.0 - 7.0 ACTION SUGGESTED > 7.0 Normal [place] Comment on above: Performed By: #### B MP, PHOS, MG #### [facility] [address] [address] [address] Uziel Reid Glucose [Mass/Vol] 137 mg/dL Normal [facility] Comment on above: Performed By: #### B MP, PHOS, MG #### [facility] [address] [address] [address] Uziel Reid HbA1c (Bld) [Mass fraction] 6.4 % Critically high <=6.0 [facility] Comment on above: Performed By: #### B LIA TALBOT MG #### [facility] [address] [place] [address] Dr. Uziel Reid Vital Signs Date Time Vital Sign Value Performing Clinician Facility 09-12-2023 13:34-0500 Body height 181.6 cm Annette Chasez [employer]UC[employer] SPECIALIST Work Phone: [facility] 09-12-2023 13:34-0500 Body mass index (BMI) [Ratio] 25.44 kg/m2 Annette Aichholz NUCLE[employer] WEAP[employer] SPECIALIST Work Phone: [facility] 09-12-2023 13:34-0500 Body temperature 96.6 [degF] Annette Aichcarolinaz NUCLEAR WEAPONS SPECIALIST Work Phone: [facility] 09-12-2023 13:34-0500 Body weight 83.92 kg Annette Aichholz NUCLEAR WEAPONS SPECIALIST Work Phone: [facility] 09-12-2023 13:34-0500 Diastolic blood pressure 76 mm[Hg] Annette Aichholz NUCLE[employer] WE[employer]ONS SPECIALIST Work Phone: [facility] 09-12-2023 13:34-0500 Heart rate 83 /min Annette Aichholz NUC[employer] SPECIALIST Work Phone: [facility] 09-12-2023 13:34-0500 Respiratory rate 18 /min Annette Aichholz NUCLE[employer] WE[employer] SPECIALIST Work Phone: [facility] 09-12-2023 13:34-0500 SaO2% (BldA) [Mass fraction] 94 % Annette Aichholz NUCLE[employer] WE[employer] SPECIALIST Work Phone: [facility] 09-12-2023 13:34-0500 Systolic blood pressure 138 mm[Hg] Annette Aichholz NUCLE[employer] WE[employer] SPECIALIST Work Phone: [facility] 08-27-2022 13:35-0500 Body height 180.34 cm Keira Haile Other [facility] Other 08-27-2022 13:35-0500 Body mass index (BMI) [Ratio] 27 kg/m2 Keira Haile Other [employer] Other 08-27-2022 13:35-0500 Body temperature 97.9 [degF] Keira Haile Other [employer] Other 08-27-2022 13:35-0500 Body weight 87.82 kg Keira Haile Other [employer] Other 08-27-2022 13:35-0500 Diastolic blood pressure 77 mm[Hg] Keira Haile Other [employer] Other 08-27-2022 13:35-0500 Respiratory rate 18 /min Keira Haile Other [employer] Other 08-27-2022 13:35-0500 SaO2% (BldA) [Mass fraction] 97 % Keira Haile Other [employer] Other 08-27-2022 13:35-0500 Systolic blood pressure 156 mm[Hg] Keira Haile Other [employer] Other 12-08-2021 09:55-0400 Body height 172.72 cm Ailyn Baez Work Phone: [facility] 170 Work Phone: 12-08-2021 09:55-0400 Body mass index (BMI) [Ratio] 29.19 kg/m2 Ailyn Baez Work Phone: [facility] 170 Work Phone: 12-08-2021 09:55-0400 Body surface area Derived from formula 2.01 m2 Ailyn Kapadia Ayad Work Phone: [facility] [address] [facility] 170 Work Phone: 12-08-2021 09:55-0400 Body temperature 97.3 [degF] Ailyn Kapadia Ayad Work Phone: [facility] [facility] 170 Work Phone: 12-08-2021 09:55-0400 Body weight 87.09 kg Ailyn Kapadia Ayad Work Phone: [facility] [address] [facility] 170 Work Phone: 12-08-2021 09:55-0400 Diastolic blood pressure 69 mm[Hg] Ailyn J Aayd Work Phone: [facility] [facility] 170 Work Phone: 12-08-2021 09:55-0400 Heart rate 63 /min Ailyn J Ayad Work Phone: [facility] [address] [facility] 170 Work Phone: 12-08-2021 09:55-0400 Respiratory rate 16 /min Ailyn Kapadia Ayad Work Phone: [facility] [facility] 170 Work Phone: 12-08-2021 09:55-0400 SaO2% (BldA) [Mass fraction] 93 % Ailyn J Ayad Work Phone: [facility] [facility] 170 Work Phone: 12-08-2021 09:55-0400 Systolic blood pressure 133 mm[Hg] Ailyn J Ayad Work Phone: [facility] [address] Work Phone: 10-14-2021 11:17-0400 Body height 172.72 cm Ailyn J Ayad Work Phone: [facility] [address] [facility] [address] Work Phone: 10-14-2021 11:17-0400 Body mass index (BMI) [Ratio] 29.04 kg/m2 Ailyn Baez Work Phone: -[facility] [facility] [address] Work Phone: 10-14-2021 11:17-0400 Body surface area Derived from formula 2 m2 Ailyn Baez Work Phone: -[facility] [facility] [address] Work Phone: 10-14-2021 11:17-0400 Body temperature 97.2 [degF] Ailyn Baez Work Phone: -[facility] [facility] 170 Work Phone: 10-14-2021 11:17-0400 Body weight 86.64 kg Ailyn Baez Work Phone: -[facility] 170 Work Phone: 10-14-2021 11:17-0400 Diastolic blood pressure 70 mm[Hg] Ailyn Baez Work Phone: -[facility] [facility] 170 Work Phone: 10-14-2021 11:17-0400 Heart rate 73 /min Ailyn Baez Work Phone: -[facility] 170 Work Phone: 10-14-2021 11:17-0400 Respiratory rate 16 /min Ailyn Baez Work Phone: -[facility] [facility] 170 Work Phone: 10-14-2021 11:17-0400 SaO2% (BldA) [Mass fraction] 92 % Ailyn Baez Work Phone: -[facility] Medicine[facility] [facility] 170 Work Phone: 10-14-2021 11:17-0400 Systolic blood pressure 120 mm[Hg] Ailyn Kang Baez Work Phone: [facility] 170 Work Phone: 10-07-2021 13:28-0500 Body height 172.72 cm Ailyn Baez Work Phone: [facility] Work Phone: 10-07-2021 13:28-0500 Body mass index (BMI) [Ratio] 29.21 kg/m2 A[facility] Work Phone: 10-07-2021 13:28-0500 Body surface area Derived from formula 2.01 m2 Ailyn Baez Work Phone: [facility] Work Phone: 10-07-2021 13:28-0500 Body temperature 95.7 [degF] Ailyn Baez Work Phone: [facility] Work Phone: 10-07-2021 13:28-0500 Body weight 87.15 kg Ailyn Baez Work Phone: [facility] Work Phone: 10-07-2021 13:28-0500 Diastolic blood pressure 78 mm[Hg] [facility] Work Phone: 10-07-2021 13:28-0500 Heart rate 67 /min Ailyn Baez [facility] Phone[facility] Work Phone: 10-07-2021 13:28-0500 Respiratory rate 16 /min Ailyn Baez Work Phone: [facility] Work Phone: 10-07-2021 13:28-0500 SaO2% (BldA) [Mass fraction] 94 % Ailyn Baez Work Phone: [facility] Work Phone: 10-07-2021 13:28-0500 Systolic blood pressure 138 mm[Hg] Ailyn Baez Work Phone: [facility] Work Phone: 09-09-2021 11:34-0500 Body height 172.72 cm Ailyn Baez Work Phone: [facility] Work Phone: 09-09-2021 11:34-0500 Body mass index (BMI) [Ratio] 30.71 kg/m2 Ailyn Baez Work Phone: [facility] Work Phone: 09-09-2021 11:34-0500 Body surface area Derived from formula 2.05 m2 Ailyn Baez Work Phone: [facility] Work Phone: 09-09-2021 11:34-0500 Body temperature 97.5 [degF] Ailyn Baez Work Phone: [facility] Work Phone: 09-09-2021 11:34-0500 Body weight 91.63 kg Ailyn Baez Work Phone: [facility] Work Phone: 09-09-2021 11:34-0500 Diastolic blood pressure 80 mm[Hg] Aliyn Baez Work Phone: [facility] Work Phone: 09-09-2021 11:34-0500 Heart rate 94 /min Ailyn J Ayad Work Phone: [facility] Work Phone: 09-09-2021 11:34-0500 Respiratory rate 16 /min Ailyn J Ayad Work Phone: [facility] Work Phone: 09-09-2021 11:34-0500 SaO2% (BldA) [Mass fraction] 90 % Ailyn Kang Baez Work Phone: [facility] Work Phone: 09-09-2021 11:34-0500 Systolic blood pressure 130 mm[Hg] Ailyn Baez Work Phone: [facility] Work Phone: Encounters Encounter Date Encounter Type Care Provider Facility Start: 03-13-2024 End: 03-13-2024 ambulatory ANNETTE AICHHOLZ Not Available Start: 01-04-2024 End: 01-04-2024 ambulatory ANNETTE AICHHOLZ Not Available Start: 12-12-2023 End: 12-12-2023 ambulatory ANNETTE AICHHOLZ Not Available Start: 10-31-2023 End: 10-31-2023 ambulatory ANNALEE A EDGAR Not Available Start: 10-05-2023 End: 10-05-2023 ambulatory ANNETTE AICHHOLZ Not Available Start: 09-21-2023 End: 09-21-2023 ambulatory ANNALEE A EDGAR Not Available Start: 09-12-2023 Bamboo flowsheet Annette Aichholz [employer] Work Phone: [facility] Start: 09-12-2023 Bamboo flowsheet Annette Aichholz [employer]IST Work Phone: [facility] Start: 09-12-2023 End: 09-12-2023 Office outpatient visit 25 minutes Annette Aichholz [employer] Work Phone: [facility] Comment on above: Edema of both lower extremities (Primary Dx); Type 2 diabetes mellitus without complication, without long-term current use of insulin ([facility]); BMI 25.0-25.9,adult; Chronic obstructive pulmonary disease, unspecified COPD type ([facility]); Primary hypertension ([facility]); Obstructive sleep apnea, adult; Leg swelling; Essential (primary) hypertension ([facility]); B12 deficiency; Benign prostatic hyperplasia with weak urinary stream; 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 ([facility]); Mixed hyperlipidemia ([facility]) Start: 09-12-2023 End: 09-12-2023 ambulatory ANNETTE AICHHOLZ Not Available Start: 09-05-2023 End: 09-05-2023 Clinical Support Annalee Hernández [facility] Work Phone: [facility] Comment on above: 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) Start: 09-05-2023 End: 09-05-2023 ambulatory ANNALEE HERNÁNDEZ Not Available Start: 08-09-2023 End: 08-09-2023 ambulatory ANNETTE AICHHOLZ Not Available Start: 07-20-2023 End: 07-20-2023 ambulatory ANNETTE AICHHOLZ Not Available Start: 07-06-2023 End: 07-06-2023 ambulatory SASCHA Christian REYMUNDO Not Available Start: 06-15-2023 End: 06-15-2023 ambulatory ANNALEE HERNÁNDEZ Not Available Start: 04-26-2023 End: 04-28-2023 ambulatory EHAB [facility] Start: 02-07-2023 End: 02-07-2023 Emergency department patient visit Marilyn Alvarado Facility:[facility] Start: 10-29-2022 End: 10-29-2022 ambulatory BEATRIZ ARAMBULA [facility] Start: 10-06-2022 End: 10-06-2022 ambulatory AILYN Kapadia [facility]ulatory Start: 10-06-2022 End: 10-06-2022 Encounter for general adult medical examination without abnormal findings AILYN Kapadia [facility] Start: 08-27-2022 Rx Renewal Ailyn Darling er Work Phone: [facility] Work Phone: Start: 08-27-2022 End: 08-27-2022 ambulatory Keira Rainesault Other [facility] [employer] Other Start: 08-27-2022 Office outpatient ne w 20 minutes Keira Haile [facility] Start: 05-18-2022 End: 05-19-2022 ambulatory EHAB [facility] Start: 03-03-2022 AUDIT Ailyn Darling er Work Phone: [facility] Work Phone: Start: 12-08-2021 Office outpatient vi sit 25 minutes Ailyn Baez [facility] Phone: [facility] [employer] [address] Work Phone: Start: 10-14-2021 Office consultation new/estab patient 60 min Ailyn Baez Work Phone: [facility] [facility] Work Phone: Start: 10-07-2021 Adv care pln tlkd & alt dcsn maker docd Ailyn Baez Work Phone: [facility] Work Phone: Start: 09-21-2021 ambulatory IP SURGERY TRA FLORI CONSULT Facility:[facility] Start: 09-14-2021 AUDIT Ailyn Darling er Work Phone: [facility] Work Phone: Start: 09-09-2021 Office outpatient ne w 30 minutes Ailyn Baez Work Phone: [facility] Work Phone: Start: 08-27-2021 End: 08-27-2021 ambulatory UNKNOWN PROVIDER [facility] Start: 08-26-2021 ambulatory NA MELLO [facility] Start: 08-25-2021 End: 08-28-2021 Evaluation and management of inpatient NA MELLO Facility:[facility] Start: 08-25-2021 ambulatory UNKNOWN PROVIDER Facili ty:[facility] Start: 08-22-2021 End: 08-22-[address] RADHA CHAPMAN Facility:[facility] Start: 08-18-2021 End: 08-19-[address] NARCISO GRAJEDA Facility:[facility] Start: 07-28-2021 End: 08-10-2021 Evaluation and management of inpatient URBANO VERMA Facility:[facility] Start: 06-09-2021 End: 06-10-2021 ambulatory ALEX SEAMAN Facility:[facility] Start: 03-18-2021 End: 03-19-2021 ambulatory ALEX SEAMAN Facility:[facility] Start: 09-30-2020 End: 10-01-[address] CELIA VENEGAS Facility:[facility] Start: 09-02-2020 End: 09-03-2020 ambulatory ALEX SEAMAN Facility:[facility] Procedures Date Procedure Procedure Detail Performing Clinician [...] procedure 12/12/2023 1:00 PM EDT Office Visit [facility] [address] [place] [address] Annette Whitfield NP [address] [place] [address] [facility] Start: 10-11-2023 End: 09-12-2024 Basic metabolic 1998 panel - Serum or Plasma Basic metabolic panel Lab Routine Edema of both lower extremities Expected: 10/11/2023 (Approximate), Expires: 09/12/2024 [facility] Work Phone: Comment on above: Expected: 10/11/2023 (Approximate), Expires: 09/12/2024 Start: 09-23-2023 Pneumococcal Vaccine : 65+ Years (2 - PPSV23 or PCV20) Pneumococcal Vaccine: 65+ Years (2 - PPSV23 or PCV20) [facility] Comment on above: Postponed from 06/17 (Other Patient Reasons) Start: 09-21-2023 End: 09-21-2023 Clinical Support 09/21/2023 11:00 AM EST Clinical Support [facility] [address] [place] [id number] Annalee Hernández, [facility] [address] [place] [address] [facility] Start: 09-12-2023 End: 09-12-2023 Patient encounter procedure [facility] Comment on above: Type 2 diabetes denny itus without complication, without long- term current use of insulin ([facility]) Start: 10-06-2022 FUV, Provider: Ailyn Baez, Status: Long, Time: 1:00 PM FUV, Provider: Ailyn Baez, Status: Pen, Time: 1:00 PM [facility] Work Phone: Start: 04-07-2022 FUV, Provider: Ailyn Baez, Status: Pen, Time: 1:15 PM FUV, Provider: Ailyn Baez, Status: Long, Time: 1:15 PM [facility] Work Phone: Start: 02-09-2022 FUV, Provider: Narendra Newton, Status: Pen, Time: 10:30 AM FUV, Provider: Narendra Newton, Status: Pen, Time: 10:30 AM [facility] 170 Work Phone: Start: 11-05-2021 FUV, Provider: Narendra Newton, Status: Pen, Time: 3:30 PM FUV, Provider: Narendra Newton, Status: Pen, Time: 3:30 PM [facility] 170 Work Phone: Start: 10-14-2021 NPV, Provider: Narendra Newton, Status: Pen, Time: 11:00 AM NPV, Provider: Narendra Newton, Status: Pen, Time: 11:00 AM [facility] Work Phone: Start: 10-07-2021 FUV, Provider: Ailyn Baez, Status: Pen, Time: 1:15 PM FUV, Provider: Ailyn Baez, Status: Pen, Time: 1:15 PM [facility] Work Phone: Start: 2002 Pneumococcal Vaccine : 65+ Years (2 - PPSV23 or PCV20) Pneumococcal Vaccine: 65+ Years (2 - PPSV23 or PCV20) [facility] Immunizations Immunization Date Immunization Notes Care Provider Keily galvan 05-25-2023 Seasonal, quadrivale nt, recombinant, injectable influenza vaccine, preservative free [facility] Work Phone: [facility] 05-13-2023 SARS-COV-2 (COVID-19 ) vaccine, mRNA, spike protein, LNP, PF, 50 mcg/0.5 mL [facility] Work Phone: [facility] 04-25-2022 influenza, injectabl e, quadrivalent, preservative free [facility] Work Phone: [facility] 12-03-2021 Moderna COVID-19 Vaccine 100 MCG/0.5ML Intramuscular Suspension Ailyn Baez Work Phone: [facility] Work Phone: 06-23-2021 influenza virus vaccine, unspecified formulation Ailyn Baez Work Phone: [facility] Work Phone: Comment on above: Series: 06-23-2021 Influenza, injectabl e, Madin Stryker Canine Kidney, preservative free, quadrivalent [facility] Work Phone: [facility] 06-09-2021 Moderna COVID-19 Vaccine 100 MCG/0.5ML Intramuscular Suspension Ailyn Kapadia Baez Work Phone: [facility] Work Phone: Comment on above: Series: 09-30-2020 Moderna COVID-19 Vaccine 100 MCG/0.5ML Intramuscular Suspension Ailyn J Ayad Work Phone: [facility] Work Phone: Comment on above: Series: 09-02-2020 Moderna COVID-19 Vaccine 100 MCG/0.5ML Intramuscular Suspension Ailyn Kapadia Baez Work Phone: [facility] Work Phone: Comment on above: Series: 05-07-2020 Influenza, injectabl e, Madin Elaina Canine Kidney, preservative free, quadrivalent Ailyn J Baez Work Phone: [facility] Work Phone: 02-06-1999 pneumococcal conjuga te vaccine, 13 valent Ailyn Kapadia Baez Work Phone: [facility] Work Phone: Comment on above: Series: Payers Date Payer Category Payer Unknown 2002 Medicare MEDICARE MEDICAR E PART B [id number] 2002-[place] [address] Medicare [id number] 1959 Medicare [id number] 1959 Self-pay 1959 Unknown [id number] 1937 Unknown [id number] 2.16.840.1.268637.3.579.2.593 1937 Unknown [id number] 2.16.840.1.053904.3.579.2.593 1937 Unknown [id number] 2.16.840.1.945048.3.579.2.593 1937 Unknown [id number] 2.840.1.073394.3.579.2.593 1937 Unknown [id number] 2.840.1.351417.3.579.2.732 1937 Unknown [id number] 2.840.1.560786.3.579.2.732 1937 Unknown [id number] 2.840.1.010620.3.579.2.732 1937 Unknown [id number] 2.840.1.965063.3.579.2.732 1937 Unknown [id number] 2.840.1.581240.3.579.2.732 1937 Unknown [id number] 2.16840.1.516143.3.579.2.732 1937 Unknown [id number] 2.16.840.1.068277.3.579.2.732 1937 Unknown [id number] 2.16840.1.745749.3.579.2.732 1937 Unknown [id number] 2.16840.1.375364.3.579.2.732 1937 Unknown [id number] 2.16.840.1.608359.3.579.2.732 1937 Unknown [id number] 2.16.840.1.701767.3.579.2.1244 1937 Unknown [id number] 2.16.840.1.651180.3.579.2.1259 1937 Unknown [id number] 2.16.840.1.888034.3.579.2.1259 1937 Unknown [id number] 2.16.840.1.556940.3.579.2.1259 1937 Unknown [id number] 2.16.840.1.222464.3.579.2.1259 1937 Unknown [id number] 2.16.840.1.589231.3.579.2.1259 1937 Unknown [id number] 2.16.840.1.937990.3.579.2.1259 1937 Unknown [id number] 2.16.840.1.626584.3.579.2.125 1937 Unknown [id number] 2.16.840.1.157008.3.579.2.1259 1937 Unknown [id number] 2.16.840.1.122096.3.579.2.1259 1937 Unknown [id number] 2.16.840.1.521481.3.579.2.1259 1937 Unknown [id number] 2.16.840.1.104090.3.579.2.1259 1937 Unknown [id number] 2.16.840.1.355358.3.579.2.1259 Unknown [id number] 2.16.840.1.378313.3.579.2.593 Unknown [id number] 2.16.840.1.263736.3.579.2.593 Unknown [id number] 2.16.840.1.945278.3.579.2.593 Unknown [id number] 2.16.840.1.183019.3.579.2.531 Social History Date Type Detail Facility Start: 08-09-2023 End: 09-12-2023 Former smoker Former smoker -[facility] Work Phone: Start: 08-09-2023 End: 09-12-2023 Sex Assigned At [email or web address] [email or web address] Other Start: 04-27-2023 Tobacco smoking status [facility] Ex-smoker [facility] History of tobacco use Current smoker [facility] History of tobacco use Cigarette Smoker [facility] Start: 04-27-2023 Tobacco use and exposure Smokeless tobacco non-user [facility] Start: 08-22-2023 End: 09-12-2023 Alcohol intake Lifetime non-drinker (finding) [facility] Start: 04-22-2023 Alcohol Comment caffeine intak e: more than 4 cups per day. 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 ([facility]) Relevant Medications aspirin 81 MG EC tablet carvedilol (Coreg) 25 MG tablet Leg swelling Relevant Medications potassium chloride CR (Klor-Con M10) 10 MEQ ER tablet Hyperlipidemia ([facility]) Relevant Medications atorvastatin (Lipitor) 40 MG tablet Obstructive sleep apnea, adult Type 2 diabetes mellitus without complication, without long-term current use of insulin ([facility]) - Primary BMI 25.0-25.9,adult Edema of both lower extremities Relevant Medications furosemide (Lasix) 20 MG tablet hydroCHLOROthiazide (HYDRODiuril) 25 MG tablet Other Relevant Orders Basic metabolic panel Other Visit Diagnoses Essential (primary) hypertension ([facility]) Relevant Medications hydroCHLOROthiazide (HYDRODiuril) 25 MG tablet documented in this encounter [facility] 09-05-2023 History of Present illness Narrative Hearing Aid Discussion: Pt here for HAD. 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 Discussed pros and cons of binaural amplification vs BICROS and pt decided to try BICROS. Pt likes beige and needs 3M field project manager for right ear and 3S field project manager for left ear. Will order aids from [employer]. Pt scheduled for HAF. Cost at fitting will be $3400 documented in this encounter [facility] 04-26-2023 Note [facility] Cardiology Clinic Note Chief Complaint: [...] 4. No anginal symptoms or arrhythmias noted. Echocardiogram-[facility] Name: FIDEL PALOMINO Study Date: 05/18/2022 09:03 AM B/P: 136 mmHg/80 mmHg HR: 62 bpm Date of : 1935 Location: [facility] Height: 71 in. Age: 86 year(s) Patient [...] valvular abnormalities Assessment: Coronary artery disease involving qawalangin coronary arteries without angina Benign essential hypertension Cough syncope Dyslipidemia Plan: Continue guideline directed medical therapy for coronary artery disease including aspirin, mode (more content not included)... [facility] 10-29-2022 Note Lipid abnormalities are Well-controlled with Lipitor 40 mg Liver function remains normal [facility] 10-29-2022 Note Denied any lighthead edness, dizziness or syncope [facility] 10-29-2022 Note Well controlled- 120 /72 Continue current med regime- coreg, lasix, HCTZ [facility] 10-29-2022 Note [facility]TP CARDIOLOGY PROGR ESS NOTE [...] 1.30 mg/dL 0.80 Comment: METHOD TRACEABLE TO [facility] STANDARD Glucose 65 - 99 mg/dL 139 [...] (TTE) complete Result Date: 05/18/2022 1 1 [facility] Heart Station [address] [place] [address] [phone] (fax) Echocardiogram-[facility] Name: FIDEL PALOMINO Study Date: 05/18/2022 09:03 AM B/P: 136 mmHg/80 mmHg HR: 62 bpm Date of : 1935 Location: [facility] Height: 71 in. Age: 86 year(s) Patient Room: Weight: 188 lb. Gender: Male Patient Status: Out (more content not included)... [facility] 10-29-2022 Note Overall pt is doing well without any concerning symptoms. Continue GDMT- ASA, lipitor, and coreg continue risk factor modifications- heart healthy diet, regular exercise as tolerated and continue all medications. [facility] 08-27-2022 Evaluation note Encounter Date Diagnosis Assessment [...] back pain home care material was printed [employer] Other 01-31-2022 NoteTransitional Care Management Contact Initial communication post- discharge: 1st attempt: 08/31/21 Sources of Information: [x]Patient, family member or home care chaplain: Manasa Palomino (spouse) [x] Hospital Discharge Summary reviewed: [] Hospital fax received from: [] List of recent hospitalizations or ED visits reviewed : []Other: Date of Admission: 08/25/2021 Date of Discharge: 08/28/2021 Hospital Discharge diagnosis: Pelvic abscess in male (HCC) Current symptoms/Patient concerns: Patient advises is doing ok can ambulate with and without walker has not heard from [facility] assisting with bathing and dressing. Per notes [place] called [place] office advises unable due to lack of staffing message sent to inpatient Nursing Program Director to advise for correct agency Medication changes: Yes If yes, what are they and does patient understand how and when to take? yes Medication list reviewed with patient: Yes Needs follow up appointment or procedure: Yes Future Appointments Date Time Department Provider Status 09/21/21 8:00 AM LIVER [phone] Jd Dubon MD Scheduled 09/22/21 8:00 AM SURGERY GENERAL [phone] Clotilde Pettit, WELFARE WORKER-DEVELOPMENT TECHNICAL LEAD Scheduled 11/04/21 8:00 AM [facility] [phone] Tatyana Potter MD Scheduled Review need for or follow up on pending diagnostic test, referrals to specialist and treatment plans with patient/caregiver: No Community resources identified for patient/family: [facility] i.e. [employer], [employer], [employer], [employer] Durable medical equipment ordered:Yes Education provided to patient/caregiver to support self management, ADL's, etc: ANDI offered Mode of Transportation: Patient arranges Additional information needed and requested:No Reminded to bring in all medications. (Old AND New) to future appointment. Interact with other health lawn care technician involved in patient care:[facility] [email or web address] [id number] NoteMedicine Intensive Care Unit Critical Care Progress Note Fidel Palomino 86 year old 204.8075 lbs MRN/Room: [id number]/[place] [address]/1 Length of stay: 2 day(s) Summary Fidel Palomino is a 86 year old male with a PMH of HTN, HLD, recent appendectomy (07/28/21, at [facility]) c/b illeus who presented to the hospital 08/25 with syncope/lightheadedness, nausea/poor appetite. Imaging at outside hospital showed a fluid collection in R paracolic gutter concerning for abscess. Transferred to [facility] for further management. IR placed intraabdominal drain for fluid collection 08/25. Recommended continued antibiotics with Vanc/Cefepime/Flagyl. Fluid cultures obtained from site. In the [facility] ED, imaging showed moderate R and small [...] -- Intake/Output Summary (Last 24 hours) at 08/27/2021 2203 Last data filed at 08/27/2021 1900 Gross [...] Neutro% Segs% Bands% Lymphs% Monos% Eos% Basos% 08/27/21417 76.7 10.1 9.5 2.7 0.9 08/26/21 0431 81.2 8.0 9.0 1.5 0.4 08/25/21 0510 87.5 3.6 8.3 0.4 0.2 Basic Metabolic Panel Na K Cl CO2 Gap Glu BUN Cr Ca Mg PO4 08/27/21417 1.8 08/27/21417 134 4.0 94 33 11 149 25 1.16 7.6 (more content not included)...[facility] [id number] NoteDISCHARGE SUMMARY [address] [address] Fidel Palomino Date of : 1935 86 year old male Attending Nathan Guerrero MD Date of Admission 08/25/2021 Date of [...] Technically successful ultrasound-guided placement of a 10 Guinean pigtail catheter into right paracolic gutter abscess. [...] of HTN, HLD, [facility] c/b illeus???who presented???to the hospital 08/25???with syncope/lightheadedness, nausea/poor appetite. Imaging at outside hospital showed a fluid collection in R paracolic gutter concerning for abscess. Transferred to [facility] for further management. IR placed intraabdominal drain for fluid collection 08/25. Recommended continued antibiotics with Vanc/Cefepime/Flagyl. Fluid cultures obtained from site.? In the [facility] ED, imaging showed moderate R and small [...] (new onset cirrhosis) (appointments set up at [facility], patient understands this and is [...] including test results Rubio Baker DO PGY-2 [id number] [facility] [id number] NotePHYSICAL THERAPY ACUTE EVALUATION Referral received, chart [...] available: Wheeled walker, tub bench, grab bars. MAT INSPECTOR Status: Independent living. Pt ambulated without an [...] Dep Max Mod Min CG CS DS ME I Comment Rolling x Supine>sit x HOB elevated. Sitting trial x Unsupported sitting at EOB. Transfer x Sit<>stand x Without an assistive device. Standing trial x Ambulation x 30 feet x2 without an assistive device. Pt demonstrated steady step-through gait pattern. Stairs x 4 steps with unilateral rail. Pt negotiated stairs utilizing a qjzo-hqzo-egrp pattern. Balance: -Unsupported static sitting: independent. -(Un)supported [...] Guard Assist/Supervision 4 - Non = Modified Wood/Independent Patient/Family Education: Instructed pt in roles of [...] program Discharge lucero (more content not included)...[facility] [id number] NoteOCCUPATIONAL THERAPY INITIAL EVALUATION Patient seen from 0829 to 0850 on CCP3W unit for 21 minutes. Co-tx with PT due to high medical complexity, safety concerns, assist of 2 required for mobility and/or advanced airway in place. Admit date: 08/25/2021 4:58 AM Reason for Admit: patient is tx from [facility] for post op complications post [...] of risks and benefits of treatment Appearance: bowling teacher, Pulse Oximeter, IV, Rivers and Sequential Compression Devices (SCDs) Alertness: WFL Affect: WNL Cooperation/Behavior: Appropriate dialogue with therapist and Pleasant and cooperative Communication: WFL Pain: Pain ratin/10, Location: no pain Pain Relief Interventions Implemented: None required; No pain at this time Self Care: Assistance Level Dep Max Mod Min CG CS DS ME I Set-Up Comment Feeding x Independent Grooming/Hygiene x Standing at sink to complete hand hygiene Bathing:UB x Anticipate Bathing:LB x Based on functional reach/pain. Dressing:UB x Don gown Dressing: LB x Assist to don socks. Patient reports reports assist from required at baseline. Toileting x Seated at toilet, completes hygiene standing Transfers/Bed Mobility: Assistance Level Dep Max Mod Min CG CS DS ME I Set-Up Comment Toilet Transfers x Sit [...] With Patients permission ordered no equipment via [employer] Order. If any questions contact [facility] DME Provider at [phone]. ??? 6 Clicks Daily Activity OT 08/28/2021 Help from another person Eating meals 4 Help from another person taking care of (more content not included)...The [employer] [id number] [facility] Referral from: Insurance verification:in progress Discussion with patient:to follow Home Health Agency:to be determined Start of care:to be determined Other:Following for HIVAT needs at in. Weekends, holidays or after hours contact [facility] intake @ [phone] Annette Cardozo RN Clinical Transition Specialties [facility] [phone] or [phone] [id number] NoteBEDSIDE RN PICC LINE INSERTION PROCEDURE NOTE Date: 08/27/2021 Time: 1440 Patient location: [facility] Indication for line: IV ANTIBIOTICS Consent obtained. [...] VERIFICATION Klarissa Ahuja RN Vascular Access TeamThe [facility] CenterAntenna Software [id number] NoteDNR Comfort Care Arrest- Do Not Intubate [...] Yes BARRIERS TO PLAN OF CARE: None BALL SORTER RN Kang. Rauscher RN DAY SHIFT LEAH Baez RNPaulding County HospitalAntenna Software [id number] NoteMedicine Intensive Care Unit Critical Care Progress Note Fidel Palomino 86 year old 205.0275 lbs MRN/Room: [id number]/CP3-129/1 Length of stay: 2 day(s) Summary Fidel Palomino is a 86 year old male with a PMH of HTN, HLD, recent appendectomy (07/28/21, at [facility]) c/b illeus who presented to the hospital 08/25 with syncope/lightheadedness, nausea/poor appetite. Imaging at outside hospital showed a fluid collection in R paracolic gutter concerning for abscess. Transferred to [facility] for further management. IR placed intraabdominal drain for fluid collection 08/25. Recommended continued antibiotics with Vanc/Cefepime/Flagyl. Fluid cultures obtained from site. In the [facility] ED, imaging showed moderate R and small [...] data filed at (more content not included)...[facility] System 08-26-2021 NoteSocial Work ICU Assessment: Referral: property and supply officer screen for pt has living will but not with pt. SW met with pt and , Manasa at bedside. HX: 86 year old???male???with a h/o HTN, HLD, BPH, remote left inguinal hernia repair with mesh, s/p appendectomy 07/28/21 (done at [facility]) c/b ileus???who presented to [facility] ED for lightheadedness and dizziness. Living Situation: Pt reports he lives with in one story home. Family/Next of Kin: Manasa Palomino: [phone]. Pt has 4 adult children. Advance Directive Information: Pt reports he does not have ADs in place and only Last Will and Testament. 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 SW addressed the hierarchy of identification of substitute decision-makers in the state of [place] is (in order) court-appointed legal guardian, health-care power of package collector, spouse, majority of adult children, parents, majority of adult siblings, and nearest relative. Finances/Insurance: Medicare A AND B and [place] [employer]. Social Work Need/Indicators: SW met with [...] provided fOC list for HHC agencies pending PT/MD VIVIEN recs. SW will follow. Bailey Casillas [facility], SALES SPECIALIST Care Coordination DepartmentThe [facility]01-26-2022 NoteDNR Comfort Care Arrest- Do Not Intubate [...] tonight BARRIERS TO PLAN OF CARE: none BALL SORTER LEAH Soler DAY SHIFT LEAH Mancera [facility]01-26-2022 NoteMedicine Intensive Care Unit Critical Care Progress Note Fidel Palomino 86 year old 205.0275 lbs MRN/Room: [id number]/3-129/1 Length of stay: 1 day(s) Summary Fidel Palomino is a 86 year old male with a PMH of HTN, HLD, [facility] c/b illeus who presented to the hospital 08/25 with syncope/lightheadedness, nausea/poor appetite. Imaging at outside hospital showed a fluid collection in R paracolic gutter concerning for abscess. Transferred to [facility] for further management. IR placed intraabdominal drain for fluid collection 08/25. Recommended continued antibiotics with Vanc/Cefepime/Flagyl. Fluid cultures obtained from site. In the [facility] ED, CBC with leukocytosis 18.2. CBC w/ [...] 82 20 96 % Nasal cannula 3 08/25/216 112/65 -- -- 86 20 95 % -- -- 08/25/212352 114/78 -- -- 81 25 96 % -- -- 08/25/212349 107/62 -- -- 71 23 97 % -- -- 08/25/212329 -- 97.5 ???F (36.4 ???C) Oral -- -- -- -- -- 08/25/212299 102/57 -- -- 76 27 95 % [...] Oral 86 24 98 % Nasal cannula 08/25/21 1550 134/66 -- -- 77 (!) [...] 80 (!) 22 95 % Nasal cannula 5 08/25/21 0940 -- -- -- 78 (!) [...] Port #1 Capped;Patent (more content not included)...The [employer] [id number] NoteMedicine Intensive Care Unit History and Physical Examination Fidel Palomino 86 year old [id number] lbs MRN/Room: [id number]/CP3-129/1 Admit Date: 08/25/2021 : 1935 PCP Contact: [...] of HTN, HLD, recent appendectomy (07/28/21, at [facility]) c/b illeus who presented to the hospital [...] showed small b/l pleural effusions. Transferred to [facility] for further management. IR placed intraabdominal drain [...] Oral 83 27 97 % Nasal cannula 08/25/21 1900 130/70 -- -- 80 19 96 % -- 3 08/25/21 1845 121/66 -- -- 76 25 98 % -- -- 08/25/21 1810 98/64 98 ???F (36.7 ???C) Oral 86 24 98 % Nasal cannula 08/25/21 1550 134/66 -- -- 77 (!) [...] Nasal cannula 08/25 (more content not included)...[email or web address] [id number] Note EXAMINATION: US CATH DRAINAGE PERITONEAL (MARIO) [...] sterile fashion. Under ultrasound guidance, a 10 Guinean self-retaining all-purpose drainage catheter was advanced into [...] Technically successful ultrasound-guided placement of a 10 Guinean pigtail catheter into right paracolic gutter abscess. MACRO: NoneThe [facility]01-25-2022 NotePOST- PROCEDURE NOTE Pre-procedure Diagnosis: Right abdominal [...] portion of the procedure Jere Hamilton MD RadiologyThe [facility]01-25-2022 NoteMODIFIED HISTORY AND PHYSICAL: Procedure:Ultrasound guided [...] Directives (Living will, health care power of package collector): none Code Status For This Procedure: Full Code Jere Hamilton MD RadiologyThe [facility]01-25-2022 NoteAcute Care Surgery - Plan of Care Note 86 year old male with PMHx HTN, HLD, BPH, remote L inguinal hernia repair w/ mesh, appendectomy (07/28/2021 at [facility]) c/b ileus presented to OSH with lightheadedness and transferred w/ bilateral pleural effusions and R paracolic gutter abdominal collection. Plan: -Admit to medicine for management of pulmonary effusions, UTI, DIONISIO -Plan for IR drain placement of fluid collection -Obtain cultures Assessment and plan to be discussed with Dr. Garcia. Denise Lincoln MD, MPH General Surgery PGY-1 ACS Consult: [phone] ACS Floor: [phone] Addendum Evaluated patient at bedside at [...] JA. Garcia. Nura Sanchez MD General Surgery [id number] [facility] [id number] NoteCONSULTATION Consultation Date: 07-28-21 REASON FOR CONSULTATION: [...] he is willing to undergo the procedure. [facility] Signed and Approved by: DR GOYO VENTURA . 08/02/2021 10:29:00[place]12-28-2021 NoteOPERATIVE NOTE OPERATION DATE: 07-28-21 ANESTHETIC: General. IV FLUIDS:Crystalloid 1,000 mL. FLOOR SUPERVISOR:JEAN Matthews PREOPERATIVE DIAGNOSIS:Acute appendicitis. POSTOPERATIVE DIAGNOSIS:Same. PROCEDURE [...] taken to the PACU in fair condition. [facility] Signed and Approved by: DR GOYO VENTURA . 08/02/2021 10:29:00The [facility] complaint Narrative - Reported* FIDEL PALOMINO is here for an initial evaluation. * Reason for Visit: COPD, JOE,. * Appointment requested by: Ailyn Baez . 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 [facility] Work Phone: History of Present illness [...] doing well with his blood pressure goals. [facility] Work Phone: Summary Purpose Family History [...] to establish care. [facility]. He was recently released from [facility] on 08/28/2021 DX with infection from Appendix [...] and content) DATE CREATED AUTHOR 08/25/2021 [facility] DATE CREATED AUTHOR AUTHOR'S ORGANIZ ATION 10/23/2021 [email or web address] DATE CREATED AUTHOR AUTHOR'S ORGANIZ ATION 12/13/2021 [facility] DATE CREATED AUTHOR AUTHOR'S ORGANIZ ATION 04/08/2022 [employer] DATE CREATED AUTHOR AUTHOR'S ORGANIZ ATION 10/08/2022 [facility] DATE CREATED AUTHOR AUTHOR'S ORGANIZ ATION 02/08/2023 [facility] DATE CREATED AUTHOR AUTHOR'S ORGANIZ ATION 05/04/2023 [facility] DATE CREATED AUTHOR AUTHOR'S ORGANIZ ATION 03/15/2024 [facility] dical Specialists EPIC REASON FOR VISIT (unrecogniz ed section and content) RIGHT LOWER BACK PAIN Care Teams (unrecognized sec tion and content) Dietary Manager Relationship Specialty Start Date End Date Ailyn Baez MD [address] [place] [address] PCP - General Family Medicine 02/23/23 Annette Whitfield NP [address] [place] [address] Nurse Practitioner [facility] 08/01/22 Dietary Manager Relationship Specialty Start Date End Date Ailyn Baez MD [address] [place] [address] PCP - [facility] 02/23/23 Annette Whitfield NP [address] [place] [address] Nurse Practitioner [facility] 08/01/22 Dietary Manager Relationship Specialty Start Date End Date Ailyn Baez MD [address] [place] [address] PCP - [facility] 02/23/23 Annette Whitfield NP [address] [place] [address] Nurse Practitioner [facility] 08/01/22 FOR RECORDS PERTAINING TO PATIENTS WHO [...] BE BASED ON THE PRIMARY CLINICAL RECORDS. [facility] [employer] provides no warranty or guarantee of the accuracy or completeness of information in this document.
[2024-03-19 12:36] LABS: Estimated Average Glucose 123 mg/dL; Glycohemoglobin A1C 5.9 % (4.5-6.2)
[2024-03-19 12:45] LABS: Anion Gap 8.8; BUN Creatinine Ratio 18.2; Calcium 8.9 mg/dL (8.5-10.1); Chloride 99 mmol/L (98-107); Estimated GFR (African America >60 (>=60); Estimated GFR (Non-African Ame >60 (>=60); Glucose 107 mg/dL (74-106); Potassium 3.8 mmol/L (3.5-5.1); Sodium 137 mmol/L (136-145)
== END 2024-03-19 11:39 | disposition home or self-care (01) ==
LOC: LAB 11:40
PROVIDERS: PCP Nurse Practitioner; Visit Provider Nurse Practitioner
DX: R60.0 Localized edema (principal); E11.9 Type 2 diabetes mellitus without complications; I10 Essential (primary) hypertension
CPT/HCPCS: 36415; 80048; 83036

== ENCOUNTER 2024-06-15 14:26 | Outpatient (OUT) | payer MEDICARE, BC, SELFPAY ==
--- NOTE | 2024-06-15 14:34 | XR_ITS ---
The [address] [address] Patient Name: AZUL PALOMINO MRN: [id number] date: 1935 Sex: M Assigned Patient Location: LAB Current Patient Location: LAB Accession/Order Number: [id number] Exam Date: 06/15/2024 14:35 Report Date: 06/15/2024 15:31 At the request of: BRANDI SERNA Procedure: XR chest 2V EXAM: XR chest 2V HISTORY: Pleural Effusion . Follow-up study. COMPARISON: 08/09/2023 TECHNIQUE: Upright PA and lateral chest x-ray FINDINGS: Relatively shallow inspiration. A very small amount of linear atelectasis or scarring persist at the right lung base laterally. No acute infiltrate, effusion or pneumothorax is identified. The heart is not enlarged and the vasculature is not distended. The osseous structures are grossly intact. XR/XR chest 2V IMPRESSION: No acute infiltrate or evidence of cardiac decompensation. Mild chronic changes are noted. There is no evidence of an effusion. The overall appearance of the chest is essentially unchanged. Electronically authenticated by: AKIL LANGFORD Date: 06/15/2024 15:31
--- OUTSIDE RECORDS SUMMARY | 2024-06-15 14:34 | XMS_ITS | CCD ---
Author Organization [facility] Care Team Providers Care Sales Performance Manager Name Role Phone PAY, DR STUART Attending Unavailable PAY, DR STUART Admitting Unavailable ROSS, ALEX Primary Care Unavailable PAY, DR STUART Consulting Unavailable SAMSA, URBANO Attending Unavailable SAMSA, URBANO Admitting Unavailable ROSS, ALEX Primary Care Unavailable RISHI, DR OMKAR Solorio Consulting Unavailable WIECEK, DR GOYO Arizmendi Procedure Practitioner Unav mayra REYES, DR RM Consulting Unavailable KERN, DR KENAN Bernal Consulting Unavailable SAMSA, URBANO Procedure Practitioner Unavailab apolinar DUCKWORTH, DR ZHANE Oliveira Consulting Unavailable WIECEK, DR GOYO Arizmendi Consulting Unavailable ZIEBER, DR ROBERT Solorio Consulting Unavailable NADERER, DR DILIP Mendes Consulting Unavailable KATSTEPHANIE FAROOQ Consulting Unavailable SAMSA, URBANO Consulting Unavailable ROSS, ALEX Consulting Unavailable CHASE, SUPA Consulting Unavailable AHMAUREEN, TIFFANI Consulting Unavailable FANY, CEZAR Consulting Unavailable [...] Unavailable Unavailable Unavailable PROVIDER, UNKNOWN Attending Unavailable RIAZ, NA Referring Unavailable EFFRON, ZHANE Admitting Unavailable [...] Primary Care Unavailable AILYN BAEZ Attending Unavailable BullAminata mcgheeer Gabe Admitting Unavailable BullalexisoreAminataer E Attending Unavailable Ailyn Baez Primary Care Unavailable Ailyn Baez MD Primary Care Provider Nahid AUTO CAMP ATTENDANT, Annette Unavailable RAMSEY JIMENEZ Attending Unavailable BEATRIZ ARAMBULA Attending Unavailable Aichholz AUTO CAMP ATTENDANT, Annette Unavailable Dilip Hensley MD Primary Care Provider [phone] CODYHOLZ, ANNETTE Attending Unavailable EDGAR, ANNALEE A Attending Unavailable TIMMIS, SASCHA H Referring Unavailable EDGAR, ANNALEE A Attending Unavailable AICHHOLZ, ANNETTE Attending Unavailable EDGAR, ANNALEE A Attending Unavailable TIMMIS, SASCHA H Attending Unavailable EDGAR, ANNALEE A Attending Unavailable AICHHOLZ, ANNETTE Attending Unavailable AICHHOLZ, ANNETTE Attending Unavailable SOHAN TREVIÑO Attending Unavailable AICHHOLZ, ANNETTE Attending Unavailable YUNG NICOLE Attending Unavailable AICHHOLZ, ANNETTE Referring Unavailable AICHHOLZ, ANNETTE Attending Unavailable Allergies Allergy Classification Reported Allergen(s) Allergy Type Date of Onset Reaction(s) Facility (1 source) Lidocaine Drug Allergy 08-30-2013 [facility] Medications Current Medications Medication Drug Class(es) Dates Sig (Normalized) Sig (Original) aspirin 81 mg delayed release oral tablet (20 sources) Platelet Aggregation Inhibitor, Nonsteroidal Anti-inflammatory Drug Start: 03-13-2024 End: 06-11-2024 take 1 tablet by mouth once daily aspirin 81 MG EC tablet Indications: 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) Take 1 tablet (81 mg) by mouth Daily 90 tablet 1 03/13/2024 06/11/2024 Active Start: 09-12-2023 End: 12-11-2023 take 1 tablet by mouth once daily aspirin 81 MG EC tablet Indications: 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) Take 1 tablet (81 mg) by mouth 1 (one) time each day at the same time 90 tablet 1 09/12/2023 12/11/2023 Active Baby Aspirin Act cass atorvastatin 40 mg oral tablet (20 sources) HMG-CoA Reductase Inhibitor Start: 03-13-2024 End: 06-11-2024 take 1 tablet by mouth at bedtime atorvastatin (Lipitor) 40 MG tablet Indications: Mixed hyperlipidemia (CMS/HCC) Take 1 tablet (40 mg) by mouth at bedtime 90 tablet 1 03/13/2024 06/11/2024 Active Start: 05-25-2021 End: 12-11-2023 take 1 tablet [...] 0 Active carvedilol 25 mg oral tablet (20 sources) alpha-Adrenergic Gem, beta-Adrenergic Gem Start: 03-13-2024 End: 06-11-2024 take 1 tablet by mouth in the morning carvedilol (Coreg) 25 MG tablet Indications: 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 Take with meals. 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 Take with meals. 180 tablet 1 09/12/2023 12/11/2023 Active Start: 05-25-2021 take 1 tablet by gisela th twice daily Carvedilol 25 MG Oral Tablet [...] Aug, Active finasteride 5 mg oral tablet (20 sources) 5-alpha Reductase Inhibitor Start: 02-29-2024 take 1 tablet by mouth once daily finasteride (Proscar) 5 MG tablet Take 5 mg by mouth Daily 02/29/2024 Active Start: 05-25-2021 End: 12-11-2023 take 1 tablet by mouth in the morning finasteride (Proscar) 5 MG tablet Indications: Benign prostatic hyperplasia with weak urinary stream Take 1 tablet (5 mg) by mouth in the morning. Take 5 mg by mouth in the morning.. 90 tablet 1 09/12/2023 12/11/2023 Active Finasteride Acti ve furosemide 20 mg oral tablet (17 sources) Loop Diuretic Start: 03-13-2024 End: 06-11-2024 take 1 tablet by mouth every other day furosemide (Lasix) 20 MG tablet Indications: Edema of both lower extremities Take 1 tablet (20 mg) by mouth every other day 45 tablet 1 03/13/2024 06/11/2024 Active Start: 09-12-2023 End: 12-11-2023 take 1 tablet [...] Activ e hydroCHLOROthiazide 25 mg oral tablet (19 sources) Thiazide Diuretic Start: 03-13-2024 End: 06-11-2024 take 1 tablet by mouth in the morning hydroCHLOROthiazide (HYDRODiuril) 25 MG tablet Indications: Primary hypertension (CMS/HCC) , Edema of both lower extremities , Essential (primary) hypertension (CMS/HCC) Take 1 tablet (25 mg) by mouth in the morning. 90 tablet 1 03/13/2024 06/11/2024 Active Start: 09-05-2023 End: 12-11-2023 take 1 tablet [...] Start : 25-May-2021 Active hydroCHLOROthiaz radha Active loratadine 10 mg oral tablet (6 sources) take 1 tablet by mouth once daily loratadine (Claritin) 10 MG tablet Take 10 mg by mouth Daily OTC Active losartan potassium 100 mg oral tablet (6 sources) Angiotensin 2 Receptor Gem Start: 2023 End: 2023 take 1 tablet by mouth in the morning losartan (Cozaar) 100 MG tablet Indications: Primary hypertension (CMS/HCC) Take 1 tablet (100 mg) by mouth in the morning. 90 tablet 1 09/12/2023 12/11/2023 Active methylPREDNISolone 4 mg oral tablet (1 source) Corticosteroid Start: 2022 methylPREDNISolone 4 MG as directed Orally Once a day for 6 days Aug, Active Potassimin (1 source) Potassimin Activ e microencapsulated potassium chloride 10 meq extended release oral tablet (16 sources) Start: 2023 End: 2023 take 1 tablet by mouth once daily as needed potassium chloride CR (Klor-Con M10) 10 MEQ ER tablet Indications: Leg swelling Take 1 tablet (10 mEq) by mouth Daily as needed (when takes lasix medication) Do not crush or chew. 90 tablet 1 03/13/2024 06/11/2024 Active Start: 07-20-2023 End: 12-11-2023 take 1 tablet by mouth once daily as needed potassium chloride CR (Klor-Con M10) 10 MEQ ER tablet Indications: Leg swelling Take 1 tablet (10 mEq) by mouth Daily as needed (when takes lasix medication) Do not crush or chew. 90 tablet 1 09/12/2023 12/11/2023 Active Start: 10-07-2021 take 1 capsule by [facility] once daily Potassium Chloride ER 10 MEQ Oral Capsule Extended Release TAKE 1 CAPSULE BY MOUTH EVERY DAY Quantity: 90 Refills: 1 Ordered: 07-Apr-2022 Ailyn Baez DO Start : 07-Oct-2021 Active on days when you take lasix vitamin b12 1 mg oral tablet (20 sources) Vitamin B12 Start: 03-13-2024 cyanocobalamin (Vitamin B-12) 1000 MCG tablet Indications: B12 deficiency 1 tablet every other day 45 tablet 1 03/13/2024 Active Start: 09-12-2023 End: 12-11-2023 take 1 tablet by mouth in the morning cyanocobalamin (Vitamin B-12) 1000 MCG tablet Indications: B12 deficiency Take 1 tablet (1,000 mcg) by mouth in the morning. 90 tablet 1 09/12/2023 12/11/2023 Active Vitamin B12 Acti ve take 1 tablet by gisela th once daily Vitamin B-12 5000 MCG Oral Tablet Disintegrating [...] Refills: 0 Ordered: 14-Oct-2021 DO Active Oxygen (17 sources) Start: 09-09-2021 Oxygen 2 L per nasal cannula at bedtime Quantity: 1 Refills: 0 Ordered: 09-Sep-2021 Ailyn Baez DO Start : 09-Sep-2021 Active oxygen (O2) gas Inhale 2 L/min continuously Wear at night while sleeping Active oxygen (O2) gas Inhale 2 L/min continuously Wear at night while sleeping 0 Active polyethylene glycol 3350 46432 mg powder for oral solution (7 sources) Osmotic Laxative Start: 09-09-2021 Polyethylene Glycol 3350 17 GM/SCOOP Oral Powder MIX 17 GRAMS IN 8 OUNCES OF WATER AND DRINK ONCE DAILY. Quantity: 3 Refills: 3 Ordered: 07-Apr-2022 Ailyn Baez DO Start : 09-Sep-2021 Active Problems Active Problems Problem Classification Problem Date Documented Date Episodic/Chronic Cataract (10 sources) Artificial lens present; Translations: [Presence of [...] Episodic Coronary atherosclerosis and other heart disease (20 sources) Coronary atherosclerosis; Translations: [Coronary atherosclerosis of quileute coronary artery] Onset: 08-24-2022 Chronic Diabetes mellitus without complication (16 sources) Type 2 diabetes mellitus without complications; [...] stream] Onset: 08-24-2022 Episodic Hyperplasia of prostate (20 sources) Weak urinary stream due to benign [...] Translations: [MODERATE PROTEIN-CALORIE MLNUTRIT] Onset: 08-17-2021 Chronic Other aftercare (1 source) penitentiary (current) use of aspirin; Translations: [SIGN ERECTOR CURRENT USE OF ASPIRIN] Onset: 08-25-2021 Episodic Other aftercare (1 source) Other residential (current) drug therapy; Translations: [OTH SIGN ERECTOR CURRENT DRUG THERAPY] Onset: 08-25-2021 Episodic Other [...] Chronic Other ear and sense organ disorders (10 sources) Hearing loss; Translations: [Unspecified hearing loss, unspecified ear] Onset: 08-28-2021 04-25-2023 Chronic Other ear and sense organ disorders (10 sources) Bilateral hearing loss; Translations: [Sensorineural hearing loss, unilateral, right ear, with restricted hearing on the contralateral side] Onset: 08-28-2021 04-25-2023 Chronic Other ear and sense organ disorders (10 sources) Asymmetrical sensorineural hearing loss; Translations: [Sensorineural hearing loss, bilateral] Onset: 04-25-2023 04-25-2023 Chronic Other ear and sense organ disorders (10 sources) Sensorineural hearing loss, bilateral; Translations: [Sensorineural hearing loss, bilateral] Onset: 08-28-2021 04-25-2023 Chronic Other ear and sense organ disorders (9 sources) Decreased hearing ; Translations: [Unspecified hearing loss, bilateral] Onset: 09-12-2023 09-12-2023 Chronic Other ear and sense organ disorders (1 source) Sudden idiopathic hearing loss; Translations: [Sudden idiopathic hearing loss, left ear] 09-06-2023 Episodic Other liver diseases (10 sources) Cirrhosis of liver; Translations: [Unspecified cirrhosis of liver] Onset: 08-28-2021 04-25-2023 Chronic Other lower respiratory disease (1 source) Other disorders of lung; Translations: [OTHER DISORDERS OF LUNG] Onset: 08-17-2021 Episodic Other lower respiratory disease (1 source) Hypoxemia; Translations: [HYPOXEMIA] Onset: 08-17-2021 Episodic Other nutritional; endocrine; and [...] [Body Mass Index 29.0-29.9, adult] Episodic Other screening for suspected conditions (not mental disorders or infectious disease) (1 source) Abnormal findings on diagnostic imaging of other abdominal regions, including retroperitoneum; Translations: [ABN FIND DX IMAG OTH AB REGION W/RP] Onset: 08-17-2021 Episodic Other skin disorders (11 sources) Seborrheic keratosis of scalp; Translations: [Other seborrheic keratosis] Onset: 05-14-2024 05-14-2024 Episodic Other skin disorders (2 sources) Inflamed seborrheic keratosis; Translations: [Inflamed seborrheic keratosis] 05-16-2024 Episodic Residual codes; unclassified (6 sources) Obstructive sleep apnea syndrome; Translations: [Obstructive sleep apnea (adult)(pediatric)] Chronic Residual codes; unclassified (19 sources) Obstructive sleep apnea of adult; Translations: [Obstructive sleep apnea (adult)(pediatric)] Onset: 08-28-2021 04-25-2023 Chronic Residual codes; unclassified (1 source) Acquired absence of other specified parts of digestive tract; Translations: [ACQ ABSENCE OTH PART DIGESTV TRACT] Onset: 08-20-2021 Episodic Residual codes; unclassified (1 source) Insomnia, unspecified; Translations: [INSOMNIA UNSPECIFIED] Onset: 08-17-2021 Episodic Residual codes; unclassified (6 sources) Memory impairment; Translations: [Other amnesia] Onset: 03-13-2024 03-13-2024 Episodic Screening and history of mental health and substance abuse codes (1 source) Personal history of nicotine dependence; Translations: [PERSONAL HISTORY OF NICOTINE DEPEND] Onset: 08-25-2021 Episodic Unclassified (1 source) CONTACT W/AND (SUSP) EXPOS [...] te Episodic/Chronic Appendicitis and other appendiceal conditions (12 sources) Unspecified acute appendicitis; Translations: [Appendicitis] Onset: 08-01-2020 Resolved: 09-12-2023 Episodic Diabetes mellitus without complication (14 sources) Prediabetes; Translations: [Impaired glucose tolerance] Onset: 03-18-2021 Resolved: 09-12-2023 Episodic Nutritional deficiencies (19 sources) Cobalamin deficiency; Translations: [Other B-complex deficiencies] Onset: 08-24-2022 04-25-2023 Episodic Other ear and sense organ disorders (10 sources) Tinnitus of left ear; Translations: [Tinnitus, left ear] Onset: 08-28-2021 04-25-2023 Episodic Other ear and sense organ disorders (10 sources) Sudden hearing loss; Translations: [Sudden idiopathic hearing loss, left ear] Onset: 04-27-2023 04-27-2023 Episodic Other gastrointestinal disorders (17 sources) Chronic constipation; Translations: [Constipation, unspecified] Onset: [...] Resolved: 04-07-2022 Episodic Other lower respiratory disease (10 sources) Dyspnea; Translations: [Dyspnea, unspecified] Onset: 08-09-2023 08-09-2023 Episodic Other nervous system disorders (7 sources) Postoperative pain ; Translations: [Other acute postoperative pain] Resolved: 04-07-2022 Episodic Other nervous system disorders (1 source) H/O: respiratory disease; Translations: [Obstructive sleep apnea (adult)(pediatric)] Resolved: 04-07-2022 Episodic Other nutritional; endocrine; and metabolic disorders (14 sources) Overweight in adulthood with body mass index of 25 or more but less than 30; Translations: [Body Mass Index 29.0-29.9, adult] Onset: 08-09-2023 08-09-2023 Episodic Other upper respiratory infections (10 sources) Acute sinusitis; Translations: [Other acute sinusitis] Onset: 08-09-2023 Resolved: 09-12-2023 08-09-2023 Episodic Peritonitis and intestinal abscess (17 sources) Abdominal abscess; Translations: [Abscess, abdomen] Onset: 08-28-2021 Resolved: 04-07-2022 04-25-2023 Episodic Pleurisy; pneumothorax; pulmonary collapse (13 sources) Pleural effusion; Translations: [Unspecified pleural effusion] Onset: 08-28-2021 04-25-2023 Episodic Residual codes; unclassified (17 sources) Insomnia; Translations: [Insomnia, unspecified] Onset: 08-24-2022 04-25-2023 Episodic Residual codes; unclassified (12 sources) Bilateral lower limb edema; Translations: [Localized edema] Onset: 08-24-2022 09-05-2023 Episodic Syncope (20 sources) Tussive syncope; Translations: [Syncope and collapse] Onset: 08-28-2021 04-25-2023 Episodic Unclassified (1 source) Right lumbar pain M54.50 Unclassified (1 source) Low back pain, unspecified; Translations: [Low back pain, unspecified] Onset: 10-06-2022 Results Test Name Value Interpretation Reference Range Facility No Panel Informationon 05-16 [facility] Office Visiton 04-16-2024 Follow-up visit [id number] Christiana Palomino 1935 M Date Provider Department [place] 04/16/2024 Rich-BEATRIZ ARAMBULA [facility] No family history on file Level of Service:34132 MD OFFICE/OUTPATIENT ESTABLISHED LOW MDM 20 MIN Normal [facility] Office Visiton 04-26-2023 Follow-up visit [id number] Christiana Palomino 1935 M Date Provider Department [facility] 04/26/2023 271-RAMSEY JIMENEZ MARIE[facility] No family history on file Level of Service:52206 MD OFFICE/OUTPATIENT ESTABLISHED LOW MDM 20-29 MIN Normal [facility] Office Visit (Family Medicin e)on 04-07-2022 Follow-up [...] dr michael justin Status: Active Requested for: [id number] AMA Intake Activity Log Entry by Donya [...] the patient. 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 [facility] 12-08-2021 Natriuretic peptide B (Bld) [Mass/Vol] 63 pg/mL Normal 0 - 99 [facility] [place] above: Result Comment: . <1 00 pg/mL - Heart failure unlikely 100-299 pg/mL - Intermediate probability of acute heart . failure exacerbation. Correlate with clinical . context and patient history. >=300 pg/mL - Heart Failure likely. Correlate with clinical . context and patient history. BNP testing is performed using different testing methodology at [facility] than at other [facility]. Direct result comparisons should only be made within the same method. Performed By: #### B NP2 #### [facility] [address] [place] [address] CBC AND DIFFERENTIALon 12-08 % AUTOMATED IMMATURE GRAN 0.3 % Normal 0.0 - 0.9 [facility] Comment on above: Result Comment: Mamie ture Granulocyte Count (IG) includes promyelocytes, myelocytes and metamyelocytes but does not include bands. Percent differential counts (%) should be interpreted in the context of the absolute cell counts (cells/L). Performed By: #### C BCDF #### [address] [address] Basophils (Bld) [#/Vol] 0.09 10*3/uL Normal 0.00 - 0.10 [facility] [place] on above: Performed By: #### C BCDF #### [address] [place] [address] Basophils/100 WBC (Bld) 1.3 % Normal 0.0 - 2.0 [facility] Comment on above: Performed By: #### C BCDF #### [address] [address] Eosinophils (Bld) [#/Vol] 0.39 10*3/uL Normal 0.00 - 0.40 [facility] Comment on above: Performed By: #### C BCDF #### [address] [address] Eosinophils/100 WBC (Bld) 5.6 % Normal 0.0 - 6.0 [facility] Comment on above: Performed By: #### C BCDF #### [address] [address] Erythrocyte distribution width (RBC) [Ratio] 13.2 % Normal 11.5 - 14.5 [facility] Comment on above: Performed By: #### C BCDF #### [address] [address] Hematocrit (Bld) [Volume fraction] 42.3 % Normal 41.0 - 52.0 [facility] Comment on above: Performed By: #### C BCDF #### [address] [address] Hemoglobin (Bld) [Mass/Vol] 13.2 g/dL Low 13.5 - 17.5 [facility] Comment on above: Performed By: #### C BCDF #### [address] [address] Lymphocytes (Bld) [#/Vol] 1.98 10*3/uL Normal 0.80 - 3.00 [facility] Comment on above: Performed By: #### C BCDF #### [address] [address] Lymphocytes/100 WBC (Bld) 28.4 % Normal 13.0 - 44.0 [facility] Comment on above: Performed By: #### C BCDF #### [address] [address] MCHC (RBC) [Mass/Vol] 31.2 g/dL Low 32.0 - 36.0 [facility] Comment on above: Performed By: #### C BCDF #### [address] [address] MCV (RBC) [Entitic vol] 95 fL Normal 80 - 100 [facility] Comment on above: Performed By: #### C BCDF #### [address] [address] Monocytes (Bld) [#/Vol] 0.69 10*3/uL Normal 0.05 - 0.80 [facility] Comment on above: Performed By: #### C BCDF #### [address] [address] Monocytes/100 WBC (Bld) 9.9 % Normal 2.0 - 10.0 [facility] Comment on above: Performed By: #### C BCDF #### [address] [address] Neutrophils (Bld) [#/Vol] 3.79 10*3/uL Normal 1.60 - 5.50 [facility] Comment on above: Performed By: #### C BCDF #### [address] [address] Neutrophils/100 WBC (Bld) 54.5 % Normal 40.0 - 80.0 [facility] Comment on above: Performed By: #### C BCDF #### [address] [address] NUCLEATED RBC 0.0 /100 WBC Normal 0.0 - 0.0 [facility] Comment on above: Performed By: #### C BCDF #### [address] [place] [address] Platelets (Bld) [#/Vol] 148 10*3/uL Low 150 - 450 [facility] Comment on above: Performed By: #### C BCDF #### [address] [place] [address] RBC 4.43 x10E12/L Low 4.50 - 5.90 [facility] Comment on above: Performed By: #### C BCDF #### [address] [place] [address] WBC (Bld) [#/Vol] 7.0 10*3/uL Normal 4.4 - 11.3 [facility] Comment on above: Performed By: #### C BCDF #### [address] [place] [address] CHEST 2 VIEW PA AND LATon CHEST 2 VIEW PA AND LAT Patient Name: FIDEL PALOMINO STUDY: TH CHEST 2 VIEW PA AND LAT; 12/08/2021 9:30 am INDICATION: for b/l effusion size J90: Pleural effusion. COMPARISON: None. ACCESSION NUMBER(S): [id number] ORDERING CLINICIAN: NARENDRA NEWTON FINDINGS: CHEST/LUNGS: The [...] Electronically signed by: MISSY ABREU MD Normal [facility] COMPREHENSIVE PANELon 2021 Albumin [Mass/Vol] 3.9 g/dL Normal 3.4 - 5.0 [facility] Comment on above: Performed By: #### C MP #### [address] [address] ALP [Catalytic activity/Vol] 106 U/L Normal 33 - 136 [facility] Comment on above: Performed By: #### C MP #### [address] [address] ALT [Catalytic activity/Vol] 18 U/L Normal 10 - 52 [facility] Comment on above: Result Comment: Anabelle ents treated with Sulfasalazine may generate falsely decreased results for ALT. Performed By: #### C MP #### [address] [address] Anion gap [Moles/Vol] 11 mmol/L Normal 10 - 20 [facility] Comment on above: Performed By: #### C MP #### [address] [address] AST [Catalytic activity/Vol] 19 U/L Normal 9 - 39 [facility] Comment on above: Performed By: #### C MP #### [address] [address] Bilirubin [Mass/Vol] 0.5 mg/dL Normal 0.0 - 1.2 [facility] Comment on above: Performed By: #### C MP #### [address] [address] Calcium [Mass/Vol] 9.3 mg/dL Normal 8.6 - 10.3 [facility] Comment on above: Performed By: #### C MP #### [address] [address] Chloride [Moles/Vol] 98 mmol/L Normal 98 - 107 [facility] Comment on above: Performed By: #### C MP #### [address] [address] Creatinine [Mass/Vol] 0.75 mg/dL Normal 0.50 - 1.30 [facility] Comment on above: Performed By: #### C MP #### [address] [address] GFR/1.73 sq M.predicted among non-blacks MDRD (S/P/Bld) [Vol rate/Area] 89 mL/min/{1.73_m2} Normal >90 [facility] [place] on above: Result Comment: CALC ULATIONS OF ESTIMATED GFR ARE PERFORMED USING THE 2020 CKD-EPI STUDY REFIT EQUATION WITHOUT THE RACE VARIABLE FOR THE IDMS-TRACEABLE CREATININE METHODS. https://jasn.asnjournals.org/content//ASN.93324520 88 Performed By: #### C MP #### [address] [address] Glucose [Mass/Vol] 130 mg/dL High 74 - 99 [facility] Comment on above: Performed By: #### C MP #### [address] [address] HCO3 (Bld) [Moles/Vol] 32 mmol/L Normal 21 - 32 [facility] Comment on above: Performed By: #### C MP #### [address] [address] Potassium [Moles/Vol] 3.6 mmol/L Normal 3.5 - 5.3 [facility] [place] above: Performed By: #### C MP #### [address] [address] Protein [Mass/Vol] 7.3 g/dL Normal 6.4 - 8.2 [facility] Comment on above: Performed By: #### C MP #### [address] [address] Sodium [Moles/Vol] 137 mmol/L Normal 136 - 145 [facility] Comment on above: Performed By: #### C MP #### [address] [address] Urea nitrogen [Mass/Vol] 20 mg/dL Normal 6 - 23 [facility] [place] on above: Performed By: #### C MP #### [address] [address] Complete Blood Count + Diffe nikko 12-08-2021 Basophils/100 WBC (Bld) 1.3 % 0.0 - 2.0 [facility] [place] [address] Work Phone: Erythrocyte distribution width (RBC) [Ratio] 13.2 % See Below [place] [address] Work Phone: Comment on above: Reference Range: 11. 5 - 14.5 Hematocrit (Bld) [Volume fraction] 42.3 % See Below [place] [address] Work Phone: Comment on above: Reference Range: 41. 0 - 52.0 Hemoglobin (Bld) [Mass/Vol] 13.2 g/dL below low threshold See Below [place] [address] Work Phone: Comment on above: Reference Range: 13. 5 - 17.5 Lymphocytes/100 WBC (Bld) 28.4 % See Below [place] [address] Work Phone: Comment on above: Reference Range: 13. 0 - 44.0 MCHC (RBC) [Mass/Vol] 31.2 g/dL below low threshold See Below [place] [address] Work Phone: Comment on above: Reference Range: 32. 0 - 36.0 MCV (RBC) [Entitic vol] 95 fL 80 - 100 [facility] [place] [address] Work Phone: Monocytes/100 WBC (Bld) 9.9 % 2.0 - 10.0 [place] [address] Work Phone: Neutrophils/100 WBC (Bld) 54.5 % See Below [place] [address] Work Phone: Comment on above: Reference Range: 40. 0 - 80.0 Platelets (Bld) [#/Vol] 148 10*3/uL below low threshold 150 - 450 [facility] [place] [address] Work Phone: RBC (Bld) [#/Vol] 4.43 {x10E12/L} below low threshold See Below -Pulmonary [place] [address] Work Phone: Comment on above: Reference Range: 4.5 0 - 5.90 WBC (Bld) [#/Vol] 7.0 10*3/uL 4.4 - 11.3 -Pul monary [place] [address] Work Phone: Complete Blood Count + Differential 0.09 {x10E9/L} See Below -Pulmonary [place] [address] Work Phone: Comment on above: Reference Range: 0.0 0 - 0.10 Complete Blood Count + Differential 0.39 {x10E9/L} See Below [facility] [place] [address] Work Phone: Comment on above: Reference Range: 0.0 0 - 0.40 Complete Blood Count + Differential 0.69 {x10E9/L} See Below -Pulmonary [place] [address] Work Phone: Comment on above: Reference Range: 0.0 5 - 0.80 Complete Blood Count + Differential 1.98 {x10E9/L} See Below [facility] [place] [address] Work Phone: Comment on above: Reference Range: 0.8 0 - 3.00 Complete Blood Count + Differential 3.79 {x10E9/L} See Below -Pulmonary [place] [address] Work Phone: Comment on above: Reference Range: 1.6 0 - 5.50 Complete Blood Count + Differential 5.6 % 0.0 - 6.0 -Pulmonary [place] [address] Work Phone: Complete Blood Count + Differential 0.3 % 0.0 - 0.9 [facility] [place] [address] Work Phone: Comment on above: Immature Granulocyte Count (IG) includes promyelocytes, myelocytes and metamyelocytes but does not include bands. Percent differential counts (%) should be interpreted in the context of the absolute cell counts (cells/L). Complete Blood Count + Differential 0.0 {/100_WBC} 0.0 - 0.0 -Pulmonary Medicine-Patel NAIR 170 Work Phone: Follow Up (Pulmonary Medicin e)on [...] pulmonary disease); CHELSEA = N; Sent To: codetag #[id number]; Last Updated By: SystemVistaar; 12/08/2021 10:32:38 AM Brain Natriuretic Peptide BNP; [...] ABG; Status:Hold For - Scheduling; Requested for:08Dec2021; Perform:[facility] [place]; Due:08Mar2022;Ordered ; For:COPD (chronic obstructive pulmonary disease); [...] Ordered By: Narendra Newton Performed: Order Comments: rafy [place] Due: [id number] Renew: Potassium Chloride ER 10 MEQ Oral Capsule Extended Release; TAKE 1 CAPSULE BY MOUTH EVERY DAY Rx By: Narendra Newton; Dispense: 30 Days ; #:30 Capsule; Refill: 3;For: HTN (hypertension); CHELSEA = N; Sent To: codetag #[id number]; Msg to Pharmacy: on days when you take lasix; Last Updated By: SystemVistaar; 12/08/2021 10:33:53 AM Echocardiogram; Status:Hold For - Scheduling; Requested for:08Dec2021; Perform:[facility] ([place]); Due:08Mar2022;Ordered ; For:Shortness of breath [...] sleep study performed in the past at [facility] with use of a CPAP machine, however he could not tolerate wearing the sleep mask. Due to this, he is currently on 2L of supplementary oxygen while sleeping. He is able to perform all activities of daily living. He complains of an intermittent dry cough . He takes day time naps. He has a history of acute appendicitis and underwent appendectomy at [facility] in 07/2021 which was complicated by intra-abdominal infection leading to drainage at [facility] on August 25, 2021. . 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 Normal [facility] - Chemistry and C hemistry - challengeon 12-08-2021 Albumin BCP dye [Mass/Vol] 3.9 g/dL 3.4 - 5.0 -Pulmonary Medicine-[facility] [place] 170 Work Phone: ALP [Catalytic activity/Vol] 106 U/L 33 - 136 -Pulmonary [facility] 170 Work Phone: ALT With P-5'-P [Catalytic activity/Vol] 18 U/L 10 - 52 -Pulmonary [facility] 170 Work Phone: Comment on above: Patients treated wit h Sulfasalazine may generate falsely decreased results for ALT. Anion gap [Moles/Vol] 11 mmol/L 10 - 20 -Pulmonary [place] [address] Work Phone: AST With P-5'-P [Catalytic activity/Vol] 19 U/L 9 - 39 -Pulmonary [place] [address] Work Phone: Bilirubin [Mass/Vol] 0.5 mg/dL 0.0 - 1.2 -Pulmonary [place] [address] Work Phone: Calcium [Mass/Vol] 9.3 mg/dL 8.6 - 10.3 -Pul monary [place] [address] Work Phone: Chloride [Moles/Vol] 98 mmol/L 98 - 107 -Pulmonary [place] [address] Work Phone: CO2 [Moles/Vol] 32 mmol/L 21 - 32 -Pulmon brianna [place] [address] Work Phone: Creatinine [Mass/Vol] 0.75 mg/dL See Below -Pulmonary [place] [address] Work Phone: Comment on above: Reference Range: 0.5 0 - 1.30 Glucose [Mass/Vol] 130 mg/dL above high threshold 74 - 99 -Pulmonary [place] [address] Work Phone: Potassium [Moles/Vol] 3.6 mmol/L 3.5 - 5.3 -Pulmonary [place] [address] Work Phone: Protein [Mass/Vol] 7.3 g/dL 6.4 - 8.2 -Pul monary [place] [address] Work Phone: Sodium [Moles/Vol] 137 mmol/L 136 - 145 -Pul monary [place] [address] Work Phone: Urea nitrogen [Mass/Vol] 20 mg/dL 6 - 23 -Pulmonary [place] [address] Work Phone: No Panel Informationon 05-10 -2022 89 {mL/min/1.73m2} >90 -Pul monary [facility] 170 Work Phone: Comment on above: CALCULATIONS OF CHECO MATED GFR ARE PERFORMED USING THE 2020 CKD-EPI STUDY REFIT EQUATION WITHOUT THE RACE VARIABLE FOR THE IDMS-TRACEABLE CREATININE METHODS.https://jasn.asnjournals.org/content//ASN. 2240641921 63 pg/mL 0 - 99 -Pulmonary [facility] [place] 170 Work Phone: Comment on above: . <100 pg/mL - Heart failure [id number] pg/mL - Intermediate probability of acute heart. failure exacerbation. Correlate with clinical. context and patient history. >=300 pg/mL - Heart Failure likely. Correlate with clinical. context and patient history.BNP testing is performed using different testing methodology at [facility] than at other [facility] hospitals. Direct result comparisons should only be made within the same method. Radiologyon 12-08-2021 XR Chest 2 Views Please click on the link to view the study images Normal [facility] 170 Work Phone: Tobacco Screening.on 022 Fall risk assessment a) No falls within the last year [facility] 170 Work Phone: Tobacco use status CPHS b) No [facility] 170 Work Phone: Consult (Pulmonary Medicine) [...] sleep study performed in the past at [facility] with use of a CPAP machine, however he could not tolerate wearing the sleep mask. Due to this, he is currently on 2L of supplementary oxygen while sleeping. He is able to perform all activities of daily living. He complains of an intermittent dry cough . He takes day time naps. He has a history of acute appendicitis and underwent appendectomy at [facility] in 07/2021 which was complicated by intra-abdominal infection leading to drainage at [facility] on August 25, 2021. . 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 During that hospitalization, he had a CT chest which shows bibasilar atelectasis associated with bilateral pleural effusion, right more than left. He was also found to be hypoxic at night over there leading to sleep study at [facility] which showed obstructive sleep apnea, however [...] sleep study records and discharge summary from [facility]. We will get his CT chest uploaded on PACS Follow up in pulmonary clinic in 3 weeks Patient understands the importance of follow up with PMD for health care maintenance and general medical conditions. 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 Normal [employer] Tobacco Screening.on 022 Adult depression screening assessment No [facility] opvizor Phone: Fall risk assessment a) No falls within the last year [facility] Phone: Tobacco use status CPHS b) No [facility] opvizor Phone: Tobacco Screening. Large [facility] opvizor Phone: Progress Noteson 09-21-2021 Events Intern Authentication Interface Message Text Patient was identified by name and date of . Patient at risk for falls:No Falls Risk protocol implemented: N/A Normal The wire[employer]X Telephone Encounteron 2021 Events Intern Authentication Interface Message Text Called and spoke to regarding patient's drainage. stated that drainage is negligible and immeasurable above the amount she instills for a flush. She stated she will track drainage for upcoming appointment. 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 Previous Dr. Seaman in [facility] last seen 08/2021. He was recently released from [facility] on 08/28/2021 DX with infection from [...] no palpitatio (more content not included)... Normal [employer] Tobacco Screening.on 022 Adult depression screening assessment No [facility]: Fall risk assessment a) No falls within the last year [facility] Phone: Tobacco use status CPHS b) No [facility] [employer]or Phone: Tobacco Screening. Pediatric [facility] Phone: Telephone Encounteron 2021 Events Intern Authentication Interface Message Text Notified Rubi from [facility] that Dr. Guerrero is willing to be the attending MD for home care. Normal [facility] Telephone Encounteron 2021 Events Intern Authentication Interface Message Text Situation: Speak with Provider, Question about following provider Background: Rubi from [facility] asked if Dr. Guerrero would follow patient for homecare. Rubi stated that Dr. Bhat would follow but she is a fellow and they need her attending as well. Assessment: n/a Recommendation: Please call Rubi at [phone] Normal The [facility] Discharge Planning Noteon Events Intern Authentication Interface Message Text CM called and [...] once she has accepting facilities. NEAL Recinos, assistant corporate secretary -Care Coordination Department Normal The [employer] System Consultson 08-28-2021 Events Intern Authentication Interface Message Text Attestation signed by Gyoo Briggs MD at 08/29/2021 7:13 AM Teaching [...] file. Chief Complaint/Reason for Consult: Antibiotic abstract [facility]/Hospital Course: This is a 86 year old year old male with history of HTN who presented to [facility] 08/25 as a transfer from [facility] for intra-abdominal fluid collection. Patient was recently hospitalized at [facility] 07/28-08/17 for abdominal pain s/p appendectomy c/b ileus. He was discharged home feeling well. He then developed dizziness and presyncope. He went back to [facility] ED and then sent him home. Since he continued to feel unwell, he then went to [facility] ED. They performed a CT abdomen/pelvis that showed a fluid collection in the right paracolic gutter. He was transferred to [facility] and IR placed a drain in the [...] drain culture: E. Coli, rare normal skin bertt -08/26 C. Diff: negative Past Medical History: [...] mg Oral Daily 30 mg at 08/28/21 0801 * sodium chloride 0.9% 0.9 % flush [...] * Influenza, Injectable, MDCK, Preservative Free, Quadrivalent (WMH=869) 05/07/2020, 06/23/2021 * Moderna SARS-COV-2 (COVID-19) vaccine, mRNA, spike protein, LNP, preservative free, 100 mcg or 50 mcg dose (CAT=060) 09/02/2020, 09/30/2020, 06/09/2021 REVIEW OF SYSTEMS: 10 point ROS performed which is otherwise negative unless noted in HPI. PHYSICAL EXAMINATION: Vital sign ranges over the past 24 hours (retrieved 08/28/2021 at 11:02 AM): Tmax (24 hours): 98.6 ???F (37 ???C) Pulse Av.8 Min: 67 Max: 95 Systolic (24hrs), Av , Min:100 , Max:156 Diastolic (24hrs (more content not included)... Normal [facility] Progress Noteson 08-28-2021 Events Intern Authentication Interface Message Text CASE MANAGEMENT ROXANNE received VM from Christina at [phone], intake at [facility] regarding name of patient's PCP. ROXANNE checked charted, no name was available. CM contacted patient's who provided physician name of Pilo Baez out of [place], [place]. Patient has appointment with Dr. Baez 09/09/21. Patient's also stated [facility] contacted her and she provided the same PCP information for them as well. ROXANNE called Christina at [facility], however, she was not available at this time, CM left a VM pertaining to the new PCP information. Tavo DE JESUS, RN Inpatient Record Label InternshipRadar Engineering Teacher: [phone] ([phone]) Normal The [employer] System Events Intern Authentication Interface Message Text CASE MANAGEMENT CM aware from prior CM's note, patient needs home PT/OT arranged. Patient's spouse accepted [facility] for [facility]. This CM contacted [facility] service at [phone] or [phone]. CM spoke to Christina at intake and faxed necessary notes to [phone]. [facility] to contact this CM tomorrow morning. Tavo DE JESUS, RN Inpatient Record Label InternshipRadar Engineering Teacher: [phone] ([phone]) Normal The [employer] System Events Intern Authentication Interface Message Text The [employer] System Pulmonary, Critical Care, AND Sleep Medicine [...] -- 70 22 100 % Nasal cannula 08/28/21 0118 -- -- -- 78 20 79 % Nasal cannula 08/28/21 0100 120/53 -- -- 79 21 93 % -- -- 08/28/21 0000 123/65 98.2 ???F (36.8 ???C) Oral 85 24 98 % CPAP 08/27/21 2330 -- -- -- 67 23 97 % CPAP 08/27/21 2300 124/75 -- -- 73 23 96 % -- -- 08/27/210 156/78 -- -- 81 22 100 % -- -- 08/27/212121 -- -- -- 78 27 100 % CPAP 08/27/21 2100 132/74 -- -- 75 29 100 % -- -- 08/27/21 2000 135/69 98 ???F (36.7 ???C) Axillary 72 21 100 % Nasal cannula 08/27/21 1900 140/75 -- -- 78 29 [...] 7.6 08/26/21 0431 1.8 08/26/21 0431 4.7 08/26/21430 137 3.8 89 32 20 127 26 [...] 9.1 3.11 9.2 27.5 88 13.8 255 08/26/21430 11.5 3.05 8.9 27.3 90 13.7 [...] Pulmonary, Critical Care, AND Sleep Medicine The [employer] System PIN [id number] Normal The [employer] System BASIC METABOLIC PANELon 08-02 Anion gap [Moles/Vol] 11 mmol/L Normal 10-20 [facility] Comment on above: Performed By: #### L IP, MG, HEPATIC, CH8 #### [facility] [address] [place] [address], Calcium [Mass/Vol] 7.6 mg/dL Low 8.4-10.4 The [facility] Comment on above: Performed By: #### L IP, MG, HEPATIC, CH8 #### [facility] [address] [place] [address], Chloride [Moles/Vol] 94 mmol/L Low 97-111 The [employer] [facility] Comment on above: Performed By: #### L IP, MG, HEPATIC, CH8 #### [facility] [address] [place] [address], CO2 [Moles/Vol] 33 mmol/L High 21-30 [facility] Comment on above: Performed By: #### L IP, MG, HEPATIC, CH8 #### [facility] [address] [place] [address], Creatinine [Mass/Vol] 1.16 mg/dL Normal 0.80-1.30 The [facility] System Comment on above: Performed By: #### L IP, MG, HEPATIC, CH8 #### [facility] [address] [place] [address], ESTIMATED GFR (CKD-EPI) 58 mL/min/1.73sqm Low >=60 The [employer] System Comment on above: Performed By: #### L IP, MG, HEPATIC, CH8 #### S [facility] [address] [place], [place], Glucose [Mass/Vol] 149 mg/dL High 80-116 [facility] Comment on above: Performed By: #### L IP, MG, HEPATIC, CH8 #### S [facility] [address] [place], [place], Potassium [Moles/Vol] 4.0 mmol/L Normal 3.3-5.3 [facility] Comment on above: Performed By: #### L IP, MG, HEPATIC, CH8 #### S [facility] [address] [place], [place], Sodium [Moles/Vol] 134 mmol/L Low 135-148 [facility] Comment on above: Performed By: #### L IP, MG, HEPATIC, CH8 #### S [facility] [address] [place] [address], Urea nitrogen [Mass/Vol] 25 mg/dL High 8-22 [facility] Comment on above: Performed By: #### L IP, MG, HEPATIC, CH8 #### [facility] [address] [place] [address], CBC WITH DIFFERENTIALon 08-02 Basophils (Bld) [#/Vol] 0.08 10*3/uL Normal 0.00-0.20 The [facility] Comment on above: Performed By: #### C BC #### S [facility] [address] [place], [place], Basophils/100 WBC (Bld) 0.9 % Normal <=1.9 The [facility] Comment on above: Performed By: #### C BC #### [facility] [address] [place], [place], Eosinophils (Bld) [#/Vol] 0.25 10*3/uL Normal 0.00-0.70 The [facility] Comment on above: Performed By: #### C BC #### S [facility] [address] [place], [place], Eosinophils/100 WBC (Bld) 2.7 % Normal 0.1-4.0 The [facility] Comment on above: Performed By: #### C BC #### [facility] [address] [place], [place], Erythrocyte distribution width (RBC) [Ratio] 13.8 % Normal 11.5-14.5 [facility] Comment on above: Performed By: #### C BC #### [facility] [address] [place], [place], Hematocrit (Bld) [Volume fraction] 27.5 % Low 41.0-53.0 The [facility] Comment on above: Performed By: #### C BC #### [facility] [address] [place], [place], Hemoglobin (Bld) [Mass/Vol] 9.2 g/dL Low 13.9-16.3 The [facility] Comment on above: Performed By: #### C BC #### [facility] [address] [place], [place], Lymphocytes (Bld) [#/Vol] 0.92 10*3/uL Low 1.00-4.80 [facility] Comment on above: Performed By: #### C BC #### [facility] [address] [place], [place], Lymphocytes/100 WBC (Bld) 10.1 % Low 24.0-44.0 The [facility] Comment on above: Performed By: #### C BC #### [facility] [address] [place], [place], MCH (RBC) [Entitic mass] 29.4 pg Normal 26.0-34.0 The [facility] Comment on above: Performed By: #### C BC #### [facility] [address] [place], [place], MCHC (RBC) [Mass/Vol] 33.3 g/dL Normal 32.0-35.9 The [facility] Comment on above: Performed By: #### C BC #### [facility] [address] [place], [place], MCV (RBC) [Entitic vol] 88 fL Normal 80-100 [facility] Comment on above: Performed By: #### C BC #### [facility] [address] [place], [place], MONOCYTE DISTRIBUTION WIDTH Normal [facility] Comment on above: Performed By: #### C BC #### S PATHOLOG[facility] LAB[facility]ORY [address] [place], [place], Monocytes (Bld) [#/Vol] 0.87 10*3/uL Normal 0.20-1.00 The [facility] Comment on above: Performed By: #### C BC #### [facility] [address] [place], [place], Monocytes/100 WBC (Bld) 9.5 % Normal 2.0-11.0 The [facility] Comment on above: Performed By: #### C BC #### [facility] [address] [place], [place], Neutrophils (Bld) [#/Vol] 7.00 10*3/uL Normal 1.50-8.00 The [facility] Comment on above: Performed By: #### C BC #### [facility] [address] [place], [place], Neutrophils/100 WBC (Bld) 76.7 % High 31.0-76.0 The [facility] Comment on above: Performed By: #### C BC #### S [facility] LAB[facility] [address] [place], [place], Platelet mean volume (Bld) [Entitic vol] 7.3 fL Low 7.5-11.2 The [facility] Comment on above: Performed By: #### C BC #### [facility] [address] [place], [place], Platelets (Bld) [#/Vol] 255 10*3/uL Normal 150-400 The [facility] Comment on above: Performed By: #### C BC #### S PATHOLOGY LABORATORY [address] [place], [place], RBC (Bld) [#/Vol] 3.11 10*6/uL Low 4.50-5.90 [facility] Comment on above: Performed By: #### C BC #### [facility] [address] [place], [place], WBC (Bld) [#/Vol] 9.1 10*3/uL Normal 4.5-11.5 [facility] Comment on above: Performed By: #### C BC #### S [facility]AT[facility] [address] [place], [place], CERULOPLASMINon 08-27-2021 CERU 23 mg/dL Normal 20-52 [facility] Comment on above: Performed By: #### C BC #### S [facility] LABORAT[facility] [address] [place], [place], Care Plan Noteon 08-27-2021 Events Intern Authentication Interface Message Text Problem: Infection: Goal: [...] Note: Continuous pulse ox monitoring. Normal [facility] FERRITINon 08-27-2021 ERIC 416.1 ng/mL High 11.5-300.0 [facility] Comment on above: Performed By: #### C BC #### [facility] [address] [place] [address], FULL LIPID PROFILEon 022 Cholesterol [Mass/Vol] 60 mg/dL Normal <200 [facility] Comment on above: Performed By: #### L IP, MG, HEPATIC, CH8 #### [facility] [address] [place] [address], Cholesterol in LDL [Mass/Vol] 38 mg/dL Normal <111 [facility] Comment on above: Performed By: #### L IP, MG, HEPATIC, CH8 #### [facility] [address] [place] [address], Cholesterol.total/C holesterol in HDL [Mass ratio] 3.53 {ratio} Normal <5.00 [facility] Comment on above: Performed By: #### L IP, MG, HEPATIC, CH8 #### [facility] [address] [place] [address], HDL CHOL 17 mg/dL Low >44 [facility] Comment on above: Performed By: #### L IP, MG, HEPATIC, CH8 #### [facility] [address] [place] [address], LDL/HDL 2.24 Normal <3.57 [facility] Comment on above: Performed By: #### L IP, MG, HEPATIC, CH8 #### [facility] [address] [place] [address], NON-HDL CHOLESTEROL 43 mg/dL Normal <130 [facility] Comment on above: Performed By: #### L IP, MG, HEPATIC, CH8 #### [facility] [address] [place] [address], Triglyceride [Mass/Vol] 42 mg/dL Normal <151 [facility] Comment on above: Performed By: #### L IP, MG, HEPATIC, CH8 #### [facility] [address] [place] [address], HEMOGLOBIN A1Con 08-27-2021 Glucose [Mass/Vol] 146 mg/dL Normal [facility] Comment on above: Order Comment: HbA1c of 5.7-6.4% have increased risk for diabetes and CV(Source :ADA 2014 Standard of Medical Care in Diabetes) Performed By: #### L IP, MG, HEPATIC, CH8 #### [facility] [address] [place] [address], HbA1c (Bld) [Mass fraction] 6.7 % High 4.0-5.6 The [facility] Comment on above: Order Comment: HbA1c of 5.7-6.4% have increased risk for diabetes and CV(Source :ADA 2014 Standard of Medical Care in Diabetes) Performed By: #### L IP, MG, HEPATIC, CH8 #### [facility] [address] [place] [address], HEPATIC FUNCTION PANELon Albumin [Mass/Vol] 1.6 g/dL Low 3.4-5.1 The [facility] Comment on above: Performed By: #### L IP, MG, HEPATIC, CH8 #### [facility] [address] [place] [address], ALK 159 IU/L Normal 40-200 [facility] Comment on above: Performed By: #### L IP, MG, HEPATIC, CH8 #### [facility] [address] [place] [address], ALT [Catalytic activity/Vol] 57 U/L High 7-40 [facility] Comment on above: Performed By: #### L IP, MG, HEPATIC, CH8 #### [facility] [address] [place] [address], AST [Catalytic activity/Vol] 27 U/L Normal 7-40 [facility] Comment on above: Performed By: #### L IP, MG, HEPATIC, CH8 #### [facility] LABORATORY [address] [place] [address], Bilirubin [Mass/Vol] 0.7 mg/dL Normal 0.1-1.5 [facility] Comment on above: Performed By: #### L IP, MG, HEPATIC, CH8 #### [facility]ORATORY [address] [place] [address], Bilirubin.direct [Mass/Vol] 0.20 mg/dL Normal 0.10-0.30 [facility] Comment on above: Performed By: #### L IP, MG, HEPATIC, CH8 #### [facility] LABORATORY [address] [place] [address], Protein [Mass/Vol] 4.9 g/dL Low 5.7-8.1 [facility] Comment on above: Performed By: #### L IP, MG, HEPATIC, CH8 #### [facility]ORATORY [address] [place] [address], HEPATITIS B SURFACE ANTIBODY on 08-27-2021 ANTI-HBS < 3.1 Normal [facility] Comment on above: Order Comment: Nonre active: Samples < 7.5 mIU/mL Reactive: Samples >/= 10.0 mIU/mL The accepted criteria for immunity to HBV is anti-HBs activity >/= 10 mIU/mL, as defined by the WHO International Reference Preparation. Performed By: #### A NTI-HBS, HBSAG #### [facility]ATORY [address] [place] [address], HEPATITIS B SURFACE ANTIGENo n 08-27-2021 HBSAG Non-Reactive Normal Non-Reactive [facility] Comment on above: Performed By: #### A NTI-HBS, HBSAG #### [facility]ATORY [address] [place] [address], HEPATITIS C ANTIBODYon 08-27 HCV Non-Reactive Normal Nonreactive [facility] Comment on above: Performed By: #### C BC #### [facility] [address] [place] [address], IRON AND TIBCon 08-27-2021 % SAT CORRECT PRD 56 % High 20-55 [facility] Comment on above: Performed By: #### C BC #### S [facility] LABORATORY [address] [place], [place], FE CORRECT PRD 72 ug/dL Normal 30-125 [facility] Comment on above: Performed By: #### C BC #### [facility] [address] [place], [place], TIBC CORRECT PRD 129 ug/mL Low 200-300 [facility] Comment on above: Performed By: #### C BC #### [facility]ORATORY [address] [place], [place], TRANSFER CORRECT PRD 92 mg/dL Low 210-375 [facility] Comment on above: Performed By: #### C BC #### [facility]ORY [address] [place] [address], MAGNESIUMon 08-27-2021 Magnesium [Mass/Vol] 1.8 mg/dL Normal 1.6-2.8 [facility] Comment on above: Performed By: #### L IP, MG, HEPATIC, CH8 #### [facility] [address] [place] [address], Progress Noteson 08-27-2021 Events Intern Authentication Interface Message Text Pharmacokinetic Dosing Service [...] clearance: 55.18 mL/min Culture(s): PENDING Melany Chavarria [facility] - Department of Pharmacy Services Normal The [facility] Events Intern Authentication Interface Message Text SW ICU Note: SW made aware by , pt will need home going IV ABX. CM and CSI aware and will follow for DC planning. Bailey Casillas [facility] Care Coordination Department Normal The [employer] Events Intern Authentication Interface Message Text [employer] Spiritual Care Services Services provided for: Patient and Family Services initiated by: Staff Water Resource Project Manager Reason for services: Initial visit Assessment/Narrative: Water Resource Project Manager knocked and entered patient's room to introduce self and share availability of spiritual care. Water Resource Project Manager found patient supine in bed, awake and alert, visiting with his . Patient and spoke briefly with this multimedia teacher about their [id number] marriage, their children, and their grandchildren as well as the kena they have experienced throughout their life together. Interventions: Introduction of service Outcome: Patient and spouse aware of multimedia teacher availability Plan of Care: On-going visits 1-2x/week while patient is on MICU. Diana Smart MDiv Staff Water Resource Project Manager, (she/her/hers) Ext: [phone] Pager: [phone] Normal The [facility] Events Intern Authentication Interface Message Text The [employer] [facility] Pulmonary, Critical Care, AND Sleep Medicine [...] Critical Care time. Subjective: Inpatient PSG on MD last night. Denies complaints today. Objective: Allergy: [...] Gap Glu BUN Cr Ca Mg PO4 08/27/21 0418 1.8 08/27/21 0418 134 4.0 94 33 11 149 25 1.16 7.6 08/26/21 0431 1.8 08/26/21 0431 4.7 08/26/21 043 137 [...] 267 WBC/Diff Neutro% Lymph% Eos% Seg% Bands% 08/27/21417 76.7 10.1 2.7 Hepatic/Biliary/Pancr eas T Prot [...] 1612 (more content not included)... Normal The [facility] Events Intern Authentication Interface Message Text [facility] DIVISION OF ACUTE CARE SURGERY --------- GENERAL INFORMATION -------- EMERGENCY GENERAL SURGERY NOTE Patient Name: Fidel Palomino Admission Date: 08/25/2021 Patient seen and examined on 08/27/2021 ------- INTERVAL HISTORY/EVENTS ----- Background Narrative: Fidel Palomino is a 86 year old male with a h/o HTN, HLD, BPH, remote left inguinal hernia repair with mesh, s/p appendectomy 07/28/21 (done at [facility]) c/b ileus who presented to [facility] ED [...] years. ??? Hospital Course/Procedures: 08/25/2021: Admitted to [facility], IR drain placed. Events in [...] date: 08/29) - Okay to discharge from ACS perspective - Follow-up in 2 weeks with his surgeon at [facility] or at [facility] if need be Remaining of care per MICU team Patient seen with and assessment/plan discussed with Dr. Garcia. Denise Lincoln MD, MPH General Surgery PGY-1 ACS Consult: [phone] ACS Floor: [phone] Plan not finalized until signed by attending, [...] MG, HEPATIC, CH8 #### [facility] [address] [place] [address], BASIC METABOLIC PANELon 08-02 Anion gap [Moles/Vol] 20 mmol/L Normal 10-20 [facility] Comment on above: Performed By: #### L IP, MG, HEPATIC, CH8 #### [facility] [address] [place] [address], Calcium [Mass/Vol] 8.0 mg/dL Low 8.4-10.4 [facility] Comment on above: Performed By: #### L IP, MG, HEPATIC, CH8 #### [facility] [address] [place] [address], Chloride [Moles/Vol] 89 mmol/L Low 97-111 [facility] Comment on above: Performed By: #### L IP, MG, HEPATIC, CH8 #### [facility] [address] [place] [address], CO2 [Moles/Vol] 32 mmol/L High 21-30 [facility] Comment on above: Performed By: #### L IP, MG, HEPATIC, CH8 #### [facility] [address] [place] [address], Creatinine [Mass/Vol] 1.40 mg/dL High 0.80-1.30 [facility] Comment on above: Performed By: #### L IP, MG, HEPATIC, CH8 #### [facility] [address] [place] [address], ESTIMATED GFR (CKD-EPI) 46 mL/min/1.73sqm Low >=60 [facility] Comment on above: Performed By: #### L IP, MG, HEPATIC, CH8 #### S PATH[facility]Y LABORATORY [address] [place] [address], Glucose [Mass/Vol] 127 mg/dL High 80-116 [facility] Comment on above: Performed By: #### L IP, MG, HEPATIC, CH8 #### S [facility] LAB[facility] [address] [place] [address], Potassium [Moles/Vol] 3.8 mmol/L Normal 3.3-5.3 [facility] Comment on above: Performed By: #### L IP, MG, HEPATIC, CH8 #### S [facility] LABORAT[facility] [address] [place], [place], Sodium [Moles/Vol] 137 mmol/L Normal 135-148 [facility] Comment on above: Performed By: #### L IP, MG, HEPATIC, CH8 #### S [facility] [address] [place] [address], Urea nitrogen [Mass/Vol] 26 mg/dL High 8-22 [facility] Comment on above: Performed By: #### L IP, MG, HEPATIC, CH8 #### S [facility] [address] [place] [address], CBC WITH DIFFERENTIALon 08-02 Basophils (Bld) [#/Vol] 0.04 10*3/uL Normal 0.00-0.20 [facility] Comment on above: Performed By: #### C BCDSAT ####[facility] [id number] [place], [place], Basophils/100 WBC (Bld) 0.4 % Normal <=1.9 [facility] Comment on above: Performed By: #### C BCDSAT ####S PATHOLOGY [id number] [place], [place], Eosinophils (Bld) [#/Vol] 0.17 10*3/uL Normal 0.00-0.70 [facility] Comment on above: Performed By: #### C BCDSAT ####[facility] PATHOLOGY [id number] [place], [place], Eosinophils/100 WBC (Bld) 1.5 % Normal 0.1-4.0 [facility] Comment on above: Performed By: #### C BCDSAT ####[facility] PATHOLOGY [id number] [place], [place], Erythrocyte distribution width (RBC) [Ratio] 13.7 % Normal 11.5-14.5 [facility] Comment on above: Performed By: #### C BCDSAT ####[facility] PATHOLOGY [id number] [place], [place], Hematocrit (Bld) [Volume fraction] 27.3 % Low 41.0-53.0 [facility] Comment on above: Performed By: #### C BCDSAT ####[facility] PATHOLOGY [id number] [place] [address], Hemoglobin (Bld) [Mass/Vol] 8.9 g/dL Low 13.9-16.3 [facility] Comment on above: Performed By: #### C BCDSAT ####[facility] PATHOLOGY [id number] [place] [address], Lymphocytes (Bld) [#/Vol] 0.91 10*3/uL Low 1.00-4.80 [facility] Comment on above: Performed By: #### C BCDSAT ####[facility] PATHOLOGY [id number] [place], [place], Lymphocytes/100 WBC (Bld) 8.0 % Low 24.0-44.0 [facility] Comment on above: Performed By: #### C BCDSAT ####[facility] PATHOLOGY [id number] [place], [place], MCH (RBC) [Entitic mass] 29.1 pg Normal 26.0-34.0 [facility] Comment on above: Performed By: #### C BCDSAT ####[facility] PATHOLOGY [id number] [place] [address], MCHC (RBC) [Mass/Vol] 32.5 g/dL Normal 32.0-35.9 [facility] Comment on above: Performed By: #### C BCDSAT ####S PATHOLOGY [id number] [place], [place], MCV (RBC) [Entitic vol] 90 fL Normal 80-100 [facility] Comment on above: Performed By: #### C BCDSAT ####[facility] PATHOLOGY [id number] [place], [place], MONOCYTE DISTRIBUTION WIDTH Normal [facility] Comment on above: Performed By: #### C BCDSAT ####[facility] PATHOLOGY [id number] [place], [place], Monocytes (Bld) [#/Vol] 1.03 10*3/uL High 0.20-1.00 [facility] Comment on above: Performed By: #### C BCDSAT ####[facility] PATHOLOGY SJJDIRHOEA1714 [place], [place], Monocytes/100 WBC (Bld) 9.0 % Normal 2.0-11.0 [facility] Comment on above: Performed By: #### C BCDSAT ####[facility] PATHOLOGY [id number] [place], [place], Neutrophils (Bld) [#/Vol] 9.32 10*3/uL High 1.50-8.00 [facility] Comment on above: Performed By: #### C BCDSAT ####[facility] PATHOLOGY [id number] [place], [place], Neutrophils/100 WBC (Bld) 81.2 % High 31.0-76.0 [facility] Comment on above: Performed By: #### C BCDSAT ####S PATHOLOGY [id number] [place], [place], Platelet mean volume (Bld) [Entitic vol] 7.4 fL Low 7.5-11.2 [facility] Comment on above: Performed By: #### C BCDSAT ####S PATHOLOGY [id number] [place], [place], Platelets (Bld) [#/Vol] 225 10*3/uL Normal 150-400 [facility] Comment on above: Performed By: #### C BCDSAT ####S PATHOLOGY [id number] [place], [place], RBC (Bld) [#/Vol] 3.05 10*6/uL Low 4.50-5.90 [facility] Comment on above: Performed By: #### C BCDSAT ####S PATHOLOGY [id number] [place], [place], WBC (Bld) [#/Vol] 11.5 10*3/uL Normal 4.5-11.5 [facility] Comment on above: Performed By: #### C BCDSAT ####[facility] PATHOLOGY [id number] [place], [place], CLOSTRIDIUM DIFFICILEon 08-02 CLOSTRIDIUM DIFFICILE Negative Normal Negative [facility] Comment on above: Order Comment: Resul ts obtained by using a real-time PCR based qualitative in vitro diagnostic test for the direct detection of the C. difficile toxin A gene (tcdA) and toxin B gene (tcdB) targets in stool specimens.Results should be interpreted in conjunction with information from the patient clinical evaluation and other diagnostic testing Performed By: #### C BC #### [facility] LABORATORY [address] [place], [place], Care Plan Noteon 08-26-2021 Events Intern Authentication Interface Message Text Problem: Infection: Goal: [...] NC. No complaints of SOB. Normal The [employer] [facility] HEPATIC FUNCTION PANELon Albumin [Mass/Vol] 1.5 g/dL Low 3.4-5.1 The [employer] [facility] Comment on above: Performed By: #### L IP, MG, HEPATIC, CH8 #### [facility] [address] [place] [address], ALK 173 IU/L Normal 40-200 [facility] Comment on above: Performed By: #### L IP, MG, HEPATIC, CH8 #### [facility] [address] [place] [address], ALT [Catalytic activity/Vol] 77 U/L High 7-40 [facility] Comment on above: Performed By: #### L IP, MG, HEPATIC, CH8 #### [facility] [address] [place] [address], AST [Catalytic activity/Vol] 39 U/L Normal 7-40 [facility] Comment on above: Performed By: #### L IP, MG, HEPATIC, CH8 #### [facility] [address] [place] [address], Bilirubin [Mass/Vol] 0.6 mg/dL Normal 0.1-1.5 [facility] Comment on above: Performed By: #### L IP, MG, HEPATIC, CH8 #### [facility] [address] [place] [address], Bilirubin.direct [Mass/Vol] 0.20 mg/dL Normal 0.10-0.30 [facility] Comment on above: Performed By: #### L IP, MG, HEPATIC, CH8 #### [facility] [address] [place] [address], Protein [Mass/Vol] 4.6 g/dL Low 5.7-8.1 The [employer] [facility] Comment on above: Performed By: #### L IP, MG, HEPATIC, CH8 #### [facility] [address] [place], [place], MAGNESIUMon 08-26-2021 Magnesium [Mass/Vol] 1.8 mg/dL Normal 1.6-2.8 The [employer] [facility] Comment on above: Performed By: #### L IP, MG, HEPATIC, CH8 #### [facility] [address] [place], [place], PHOSPHORUSon 08-26-2021 Phosphate [Mass/Vol] 4.7 mg/dL High 2.3-4.2 The [employer] [facility] Comment on above: Performed By: #### L IP, MG, HEPATIC, CH8 #### [facility] [address] [place], [place], Procedureson 08-26-2021 Events Intern Authentication Interface Message Text Transthoracic Echocardiographic Report Name: GEORGETTE LIANG Interpreting HERLINDA JACQUES MD Physician: : [id number] Referring VERONICA ABEL MD Physician: Age: 86 Photographic Double: ILDA PATEL Exam Date: 08/26/2021 Fellow: 09:22 [...] Doctor's order(s) verified. Patient's preferred language is Uzbek . Verbal consent for left heart echo contrast was obtained after explanation of the risks (1/10,000 significant and 1/3,000 minor allergic reactions) and benefits (needed enhancement of imaging) were explained. Administration of 1 dose(s) of 1.5 ml of Definity diluted to 8.5 ml of saline was administered by Supine BP: 122/63 mmHg Patient Status: Routine [...] physician) on 08/26/2021 11:16 AM Normal The [employer] [facility] Progress Noteson 08-26-2021 Events Intern Authentication Interface Message Text Pharmacokinetic Dosing Service [...] Source/Reason for Therapy Answer: Gastrointestinal/Intr aabdominal 08/26/21 1929 08/25/21 1441 vancomycin dosing pharmacy consult Other, [...] 45.78 mL/min (A) Culture(s): PENDING. DUSTY SÁNCHEZ [facility] - Department of Pharmacy Services Normal The [employer] Events Intern Authentication Interface Message Text The [facility] Pulmonary, Critical Care, AND Sleep Medicine MICU [...] hernia (s/p mesh), s/p appendectomy 07/28/21 at [facility] complicated by ileus presented to [facility] with [...] Neut (more content not included)... Normal The [employer] [facility] Events Intern Authentication Interface Message Text [facility] DIVISION OF ACUTE CARE SURGERY --------- GENERAL INFORMATION -------- EMERGENCY GENERAL SURGERY NOTE Patient Name: Fidel Palomino Admission Date: 08/25/2021 Patient seen and examined on 08/26/2021 ------- INTERVAL HISTORY/EVENTS ----- Background Narrative: Fidel Palomino is a 86 year old male with a h/o HTN, HLD, BPH, remote left inguinal hernia repair with mesh, s/p appendectomy 07/28/21 (done at [facility]) c/b ileus who presented to [facility] ED [...] years. ??? Hospital Course/Procedures: 08/25/2021: Admitted to [facility], IR drain placed. Events in last 24 hours: Admitted to [facility] and IR drain placed yesterday [...] CHEST, ABDOMEN AND PELVIS W/O CONTRAST [facility] - 08/24/2021 1. Moderate right-sided pleural effusion. [...] impaction. ??? XR CHEST 1V PORTABLE ([facility] - 08/24/2021 LOW LUNG VOLUMES WITH BIBASILAR [...] 3. (more content not included)... Normal The [employer] [facility] Events Intern Authentication Interface Message Text Pharmacy Renal Dosing [...] required; The recommended therapy is cefepime 2gm [id number] . Medication therapy has been updated per consult agreement. DUSTY SÁNCHEZ, [facility] Department of Pharmacy Services Normal The [employer] [facility] US LIVER/GALL BLADDER/PANCRE ASon 08-26-2021 US [...] cholelithiasis is demonstrated. MACRO: None Normal [facility] ABO RH TYPEon 08-25-2021 ABO and Rh group Nom (Bld) Blood group O Rh(D) positive Normal [facility] Comment on above: Performed By: #### L IP, MG, HEPATIC, CH8 #### [facility] [address] [place] [address], [id number] AEROBIC WOUND CULTUREon 08-02 AEROBIC WOUND CULTURE C PYOG: Positive Culture Report ESCHERICHIA COLI 2+ Escherichia coli Rare growth of normal skin brett GRAM STAIN: 4+ Polymorphonuclear Leukocytes No Squamous Epithelial Cells seen Mixed polymicrobial brett seen Normal [facility] Comment on above: Order Comment: THIS IS A PRELIMINARY REPORT. Final results will follow. Results of the preliminary report may be modified as additional information becomes available. Performed By: #### C PYOG ####[facility] [id number] [place] [id number] MELISSA _ ORGANISM: ESCHERICHIA COLI ANTIBIOTIC MELISSA [...] + Sulfamethoxazole <= 20 S Normal [facility] Comment on above: Order Comment: THIS IS A PRELIMINARY REPORT. Final results will follow. Results of the preliminary report may be modified as additional information becomes available. Performed By: #### C PYOG ####[facility] [id number] [place], [id number] B TYPE NATRIURETIC PEPTIDEon 08-25-2021 Natriuretic peptide B (Bld) [Mass/Vol] 321.0 pg/mL High <100.0 [facility] Comment on above: Performed By: #### L IP, MG, HEPATIC, CH8 #### [facility] [address] [place] [address], BASIC METABOLIC PANELon 08-02 Anion gap [Moles/Vol] 17 mmol/L Normal 10-20 [facility] Comment on above: Performed By: #### L IP, MG, HEPATIC, CH8 #### [facility] [address] [place] [address], Calcium [Mass/Vol] 7.7 mg/dL Low 8.4-10.4 [facility] Comment on above: Performed By: #### L IP, MG, HEPATIC, CH8 #### [facility] [address] [place] [address], Chloride [Moles/Vol] 90 mmol/L Low 97-111 [facility] Comment on above: Performed By: #### L IP, MG, HEPATIC, CH8 #### [facility] [address] [place] [address], CO2 [Moles/Vol] 32 mmol/L High 21-30 [facility] Comment on above: Performed By: #### L IP, MG, HEPATIC, CH8 #### [facility] [address] [place] [address], Creatinine [Mass/Vol] 1.63 mg/dL High 0.80-1.30 [facility] Comment on above: Performed By: #### L IP, MG, HEPATIC, CH8 #### [facility] [address] [place] [address], ESTIMATED GFR (CKD-EPI) 38 mL/min/1.73sqm Low >=60 [facility] Comment on above: Performed By: #### L IP, MG, HEPATIC, CH8 #### [facility] [address] [place] [address], Glucose [Mass/Vol] 136 mg/dL High 80-116 [facility] Comment on above: Performed By: #### L IP, MG, HEPATIC, CH8 #### [facility] [address] [place] [address], Potassium [Moles/Vol] 3.7 mmol/L Normal 3.3-5.3 [facility] Comment on above: Performed By: #### L IP, MG, HEPATIC, CH8 #### [facility] [address] [place] [address], Sodium [Moles/Vol] 135 mmol/L Normal 135-148 [facility] Comment on above: Performed By: #### L IP, MG, HEPATIC, CH8 #### [facility] [address] [place] [address], Urea nitrogen [Mass/Vol] 26 mg/dL High 8-22 [facility] Comment on above: Performed By: #### L IP, MG, HEPATIC, CH8 #### [facility] [address] [place] [address], Anion gap [Moles/Vol] 15 mmol/L Normal 10-20 [facility] Comment on above: Performed By: #### L IP, MG, HEPATIC, CH8 #### [facility] [address] [place] [address], Calcium [Mass/Vol] 7.9 mg/dL Low 8.4-10.4 [facility] Comment on above: Performed By: #### L IP, MG, HEPATIC, CH8 #### [facility] [address] [place] [address], Chloride [Moles/Vol] 88 mmol/L Low 97-111 [facility] Comment on above: Performed By: #### L IP, MG, HEPATIC, CH8 #### [facility] [address] [place] [address], CO2 [Moles/Vol] 33 mmol/L High 21-30 [facility] Comment on above: Performed By: #### L IP, MG, HEPATIC, CH8 #### [facility] [address] [place] [address], Creatinine [Mass/Vol] 1.96 mg/dL High 0.80-1.30 [facility] Comment on above: Performed By: #### L IP, MG, HEPATIC, CH8 #### [facility] [address] [place] [address], ESTIMATED GFR (CKD-EPI) 30 mL/min/1.73sqm Low >=60 [facility] Comment on above: Performed By: #### L IP, MG, HEPATIC, CH8 #### [facility] [address] [place] [address], Glucose [Mass/Vol] 134 mg/dL High 80-116 [facility] Comment on above: Performed By: #### L IP, MG, HEPATIC, CH8 #### [facility] [address] [place] [address], Potassium [Moles/Vol] 3.7 mmol/L Normal 3.3-5.3 [facility] Comment on above: Performed By: #### L IP, MG, HEPATIC, CH8 #### [facility] [address] [place] [address], Sodium [Moles/Vol] 132 mmol/L Low 135-148 [facility] Comment on above: Performed By: #### L IP, MG, HEPATIC, CH8 #### [facility] [address] [place] [address], Urea nitrogen [Mass/Vol] 28 mg/dL High 8-22 [facility] Comment on above: Performed By: #### L IP, MG, HEPATIC, CH8 #### [facility] [address] [place] [address], BLOOD CULTUREon 08-25-2021 Bacteria identified Cx Nom (Bld) C BLOOD: No Growth Normal [facility] Comment on above: Performed By: #### C BC #### [facility] [address] [place] [address], BLOOD GAS, VENOUSon 08-25-19 22 CR ABEV 7.8 mmol/L High -4.0-4.0 [facility] Comment on above: Performed By: #### C R BGV ####[facility] [id number] [place], [place], CR HCO3V 33 mmol/L High 22-28 [facility] Comment on above: Performed By: #### C R BGV ####[facility] [id number] [place], [place], CR PHV 7.416 High 7.310-7.410 [facility] Comment on above: Performed By: #### C R BGV ####[facility]Y [id number] [place], [place], CR PVCO2 52.5 mm Hg High 41.0-51.0 [facility] Comment on above: Performed By: #### C R BGV ####[facility]Y [id number] [place], [place], CR PVO2 43 mm Hg High 35-40 [facility] Comment on above: Performed By: #### C R BGV ####[facility]Y [id number] [place] [address], Oxygen saturation in Blood 75.6 % High 70.0-75.0 [facility] Comment on above: Performed By: #### C R BGV ####[facility]Y [id number] [place], [place], CBC WITH DIFFERENTIALon 08-02 Basophils (Bld) [#/Vol] 0.03 10*3/uL Normal 0.00-0.20 [facility] Comment on above: Performed By: #### C BC #### [facility] [address] [place] [address], Basophils/100 WBC (Bld) 0.2 % Normal <=1.9 [facility] Comment on above: Performed By: #### C BC #### [facility] [address] [place] [address], Eosinophils (Bld) [#/Vol] 0.08 10*3/uL Normal 0.00-0.70 [facility] Comment on above: Performed By: #### C BC #### [facility] [address] [place], [place], Eosinophils/100 WBC (Bld) 0.4 % Normal 0.1-4.0 [facility] Comment on above: Performed By: #### C BC #### [facility] [address] [place], [place], Erythrocyte distribution width (RBC) [Ratio] 13.8 % Normal 11.5-14.5 [facility] Comment on above: Performed By: #### C BC #### [facility] [address] [place], [place], Hematocrit (Bld) [Volume fraction] 33.0 % Low 41.0-53.0 [facility] Comment on above: Performed By: #### C BC #### [facility] [address] [place] [address], Hemoglobin (Bld) [Mass/Vol] 10.6 g/dL Low 13.9-16.3 [facility] Comment on above: Performed By: #### C BC #### [facility] [address] [place] [address], Lymphocytes (Bld) [#/Vol] 0.66 10*3/uL Low 1.00-4.80 [facility] Comment on above: Performed By: #### C BC #### [facility] [address] [place], [place], Lymphocytes/100 WBC (Bld) 3.6 % Low 24.0-44.0 [facility] Comment on above: Performed By: #### C BC #### S [facility] [address] [place], [place], MCH (RBC) [Entitic mass] 28.9 pg Normal 26.0-34.0 [facility] Comment on above: Performed By: #### C BC #### S [facility] [address] [place] [address], MCHC (RBC) [Mass/Vol] 32.2 g/dL Normal 32.0-35.9 [facility] Comment on above: Performed By: #### C BC #### [facility] [address] [place] [address], MCV (RBC) [Entitic vol] 90 fL Normal 80-100 [facility] Comment on above: Performed By: #### C BC #### [facility] [address] [place] [address], MONOCYTE DISTRIBUTION WIDTH 21 High <=20 [facility] Comment on above: Performed By: #### C BC #### [facility] [address] [place] [address], Monocytes (Bld) [#/Vol] 1.52 10*3/uL High 0.20-1.00 [facility] Comment on above: Performed By: #### C BC #### [facility] [address] [place] [address], Monocytes/100 WBC (Bld) 8.3 % Normal 2.0-11.0 [facility] Comment on above: Performed By: #### C BC #### [facility] [address] [place] [address], Neutrophils (Bld) [#/Vol] 15.95 10*3/uL High 1.50-8.00 [facility] Comment on above: Performed By: #### C BC #### [facility] [address] [place] [address], Neutrophils/100 WBC (Bld) 87.5 % High 31.0-76.0 [facility] Comment on above: Performed By: #### C BC #### [facility] [address] [place] [address], Platelet mean volume (Bld) [Entitic vol] 7.7 fL Normal 7.5-11.2 [facility] Comment on above: Performed By: #### C BC #### [facility] [address] [place] [address], Platelets (Bld) [#/Vol] 267 10*3/uL Normal 150-400 [facility] Comment on above: Performed By: #### C BC #### [facility] [address] [place] [address], RBC (Bld) [#/Vol] 3.67 10*6/uL Low 4.50-5.90 [facility] Comment on above: Performed By: #### C BC #### [facility] [address] [place] [address], WBC (Bld) [#/Vol] 18.2 10*3/uL High 4.5-11.5 [facility] Comment on above: Performed By: #### C BC #### [facility] [address] [place] [address], COMPLETE BLOOD COUNTon 08-25 Erythrocyte distribution width (RBC) [Ratio] 13.5 % Normal 11.5-14.5 [facility] Comment on above: Performed By: #### C BC #### [facility] [address] [place] [address], Hematocrit (Bld) [Volume fraction] 28.8 % Low 41.0-53.0 [facility] Comment on above: Performed By: #### C BC #### [facility] [address] [place] [address], Hemoglobin (Bld) [Mass/Vol] 9.5 g/dL Low 13.9-16.3 [facility] Comment on above: Performed By: #### C BC #### [facility] [address] [place] [address], MCH (RBC) [Entitic mass] 29.5 pg Normal 26.0-34.0 [facility] Comment on above: Performed By: #### C BC #### [facility] [address] [place] [address], MCHC (RBC) [Mass/Vol] 32.9 g/dL Normal 32.0-35.9 [facility] Comment on above: Performed By: #### C BC #### [facility] [address] [place] [address], MCV (RBC) [Entitic vol] 90 fL Normal 80-100 [facility] Comment on above: Performed By: #### C BC #### [facility] [address] [place] [address], Platelet mean volume (Bld) [Entitic vol] 7.6 fL Normal 7.5-11.2 [facility] Comment on above: Performed By: #### C BC #### [facility] [address] [place], [place], Platelets (Bld) [#/Vol] 236 10*3/uL Normal 150-400 [facility] Comment on above: Performed By: #### C BC #### [facility] [address] [place], [place], RBC (Bld) [#/Vol] 3.22 10*6/uL Low 4.50-5.90 [facility] Comment on above: Performed By: #### C BC #### [facility] [address] [place], [place], WBC (Bld) [#/Vol] 16.5 10*3/uL High 4.5-11.5 [facility] Comment on above: Performed By: #### C BC #### [facility] [address] [place], [place], CTA CHEST PULMONARY EMBOLISM W/ CTAon 08-25-2021 [...] gallbladder is nondistended. MACRO: None Normal [facility] Care Plan Noteon 08-25-2021 Events Intern Authentication Interface Message Text Problem: Infection: Goal: [...] NC. Will wean as tolerated. Normal [facility] Consultson 08-25-2021 Events Intern Authentication Interface Message Text DEPARTMENT OF SURGERY CONSULT - ACUTE CARE SURGERY Fidel Palomino [id number] Chief Complaint/Reason for Consultation Intraabdominal fluid collection History (HPI) Fidel Palomino is a 86 year old male with a h/o HTN, HLD, BPH, remote left inguinal hernia repair with mesh, s/p appendectomy 07/28/21 (done at [facility]) c/b ileus who presented to [facility] ED [...] CT (more content not included)... Normal [facility] ED Provider Noteson 08-25-19 Events Intern Authentication Interface Message Text NS for KB 86yM PMH of HTN and appendectomy 07/28/21. Transfer from [facility] due to syncope, found to have abdominal [...] to assume care of patient. Normal [facility] Events Intern Authentication Interface Message Text ED RESIDENT CONTINUATION [...] Color Yellow Appearance Clear pH 5.5 Spec [place] <=1.005 Protein Negative Glucose Negative Ketones Negative [...] Improved electrolytes and improvement of DIONISIO [KB] 191 US CATH DRAINAGE PERITONEAL IMPRESSION: Technically successful ultrasound-guided placement of a 10 [place] pigtail catheter into right paracolic gutter abscess. [KB] ED Course User Index [KB] Jia Jiang DO [SP] Javon Gray MD Medical Decision MakinyM PMH of HTN and appendectomy 07/28/21. Transfer from [facility] due to syncope, found to have abdominal [...] Com (more content not included)... Normal [facility] Events Intern Authentication Interface Message Text 86yM PMH of HTN and appendectomy 07/28/21. Transfer from [facility] due to syncope, found to have abdominal fluid mass, pleural effusion (4L NC now), b/l leg edema (new), PNA, and fecal impaction. Small fluid bolus ordered and patient is being evaluated by ACS. Labs pending now, ordered for azithromycin. [ ] ACS recs [ ] likely admit medicine Normal [facility] Events Intern Authentication Interface Message Text 86yM PMH of HTN and appendectomy 07/28/21. Transfer from [facility] due to syncope, found to have abdominal fluid mass, pleural effusion (4L NC now), b/l leg edema (new), PNA, and fecal impaction. Small fluid bolus ordered and patient is being evaluated by [facility]. Labs pending now, ordered for azithromycin. Normal [facility] Hubba Authentication Interface Message Text EMERGENCY DEPARTMENT - VISIT NOTE --------- HISTORY OF PRESENT ILLNESS ----- Chief Complaint Patient presents with * Chart tx from [facility] for post-op complications, apx removed 07/28/21, having fluid build up and posisble cyst found at surgical site, possible pna found on chest xray at [facility], no BM in 5 days not needed - patient preferred language is Uzbek. HPI History is provided by the patient [...] poor p.o. intake. He went to the [facility] emergency department for further evaluation where he was found to have a intra-abdominal abscess as well as bilateral pleural effusions with possible pneumonia. Because of the complex nature of his presentation, the patient was transferred to [facility] for further management. While ed route to [facility], the patient began to have substantial gas [...] nursing note reviewed. Exam conducted with a protection consultant present. Constitutional: General: He is not in [...] includ (more content not included)... Normal [facility] HEPATIC FUNCTION PANELon Albumin [Mass/Vol] 1.7 g/dL Low 3.4-5.1 [facility] Comment on above: Performed By: #### L IP, MG, HEPATIC, CH8 #### S [facility] LAB[facility] [address] [place] [address], ALK 229 IU/L High 40-200 [facility] Comment on above: Performed By: #### L IP, MG, HEPATIC, CH8 #### S [facility] [address] [place] [address], ALT [Catalytic activity/Vol] 125 U/L High 7-40 [facility] Comment on above: Performed By: #### L IP, MG, HEPATIC, CH8 #### S [facility] [address] [place] [address], AST [Catalytic activity/Vol] 83 U/L High 7-40 [facility] Comment on above: Performed By: #### L IP, MG, HEPATIC, CH8 #### [facility] [address] [place] [address], Bilirubin [Mass/Vol] 0.7 mg/dL Normal 0.1-1.5 [facility] Comment on above: Performed By: #### L IP, MG, HEPATIC, CH8 #### [facility] [address] [place] [address], Bilirubin.direct [Mass/Vol] 0.40 mg/dL High 0.10-0.30 [facility] Comment on above: Performed By: #### L IP, MG, HEPATIC, CH8 #### [facility] [address] [place] [address], Protein [Mass/Vol] 5.6 g/dL Low 5.7-8.1 [facility] Comment on above: Performed By: #### L IP, MG, HEPATIC, CH8 #### S [facility] [address] [place] [address], LACTIC ACIDon 08-25-2021 CR LACT 1.0 mmol/L Normal 0.5-2.0 [facility] Comment on above: Performed By: #### L IP, MG, HEPATIC, CH8 #### [facility] [address] [place], [place], CR LACT 2.2 mmol/L High 0.5-2.0 [facility] Comment on above: Performed By: #### L ACT #### [facility] [address] [place], [place], LIPASEon 08-25-2021 LIP 38 IU/L Normal <128 [facility] Comment on above: Performed By: #### L IP, MG, HEPATIC, CH8 #### [facility] [address] [place], [place], MAGNESIUMon 08-25-2021 Magnesium [Mass/Vol] 1.8 mg/dL Normal 1.6-2.8 [facility] Comment on above: Performed By: #### L IP, MG, HEPATIC, CH8 #### [facility] [address] [place], [place], PROTHROMBIN TIME AND INRon 0 08-25-2021 INR Coag (PPP) [Relative time] 1.36 {INR} High 0.90-1.10 [facility] Comment on above: Performed By: #### P T ####[facility] [id number] [place], [place], PT Coag (PPP) [Time] 15.0 s High 9.7-12.9 [facility] Comment on above: Performed By: #### P T ####[facility] PATHOLOGY [id number] [place], [place], Progress Noteson 08-25-2021 Events Intern Authentication Interface Message Text Pharmacokinetic Dosing Service [...] (Unknown ideal weight.) Culture(s): PENDING Armond Cohn [facility] - Department of Pharmacy Services Normal [facility] [facility] TROPONIN Ion 08-25-2021 TROP I < 0.030 Normal <0.120 [facility] Comment on above: Result Comment: Rang [...] MG, HEPATIC, CH8 #### [facility] [address] [place] [address], TYPE AND SCREENon 08-25-2021 ABO and Rh group Nom (Bld) Blood group O Rh(D) positive Normal The [facility] [facility] Comment on above: Performed By: #### L IP, MG, HEPATIC, CH8 #### [facility] [address] [place], [place], ABO and Rh group Nom (Bld) No Previous Results Normal [facility] Comment on above: Performed By: #### L IP, MG, HEPATIC, CH8 #### [facility] [address] [place] [address], ABSC INT Negative Normal [facility] Comment on above: Performed By: #### L IP, MG, HEPATIC, CH8 #### [facility] [address] [place], [place], URINALYSISon 08-25-2021 Glucose Ql (U) Negative Normal Negative [facility] Comment on above: Order Comment: A [...] 50%) Performed By: #### C BC #### [facility]ORATORY [address] [place] [address], U APPEAR Clear Normal Clear [facility] Comment on above: Order Comment: A [...] 50%) Performed By: #### C BC #### [facility] LABOR[facility]ORY [address] [place] [address], U BILI Negative Normal Negative [facility] Comment on above: Order Comment: A [...] 50%) Performed By: #### C BC #### [facility] LABOR[facility]ORY [address] [place] [address], U BLOOD Negative Normal Negative [facility] Comment on above: Order Comment: A [...] 50%) Performed By: #### C BC #### [facility]OR[facility]ORY [address] [place] [address], U COLOR Yellow Normal Yellow The [facility] Comment on above: Order Comment: A [...] 50%) Performed By: #### C BC #### [facility] [address] [place] [address], U KETONE Negative Normal Negative The [facility] Comment on above: Order Comment: A [...] 50%) Performed By: #### C BC #### [facility]ORY [address] [place] [address], U LEUK Trace Abnormal Negative The [facility] Comment on above: Order Comment: A [...] 50%) Performed By: #### C BC #### [facility] LAB[facility] [address] [place] [address], U NITRITE Negative Normal Negative The [facility] Comment on above: Order Comment: A [...] 50%) Performed By: #### C BC #### [facility] [address] [place] [address], U PH 6.0 Normal 5.0-8.0 [facility] Comment on above: Order Comment: A [...] 50%) Performed By: #### C BC #### [facility]OR[facility] [address] [place], [place], U PROTEIN Negative Normal Negative The [facility] Comment on above: Order Comment: A [...] 50%) Performed By: #### C BC #### [facility] [address] [place], [place], U RBC 3-5 Abnormal 0-2 The [facility] Comment on above: Order Comment: A [...] 50%) Performed By: #### C BC #### [facility] [facility] [address] [place], [place], U SG 1.023 Normal 1.005-1.030 [facility] [employer] [facility] Comment on above: Order Comment: A [...] 50%) Performed By: #### C BC #### [facility] [address] [place], [place], U UROBILI Negative Normal 0.1 - 1.0 [facility] [employer] [facility] Comment on above: Order Comment: A [...] #### C BC #### [facility] [address] [place] [address], U WBC 3-5 Abnormal 0-2 [facility] Comment on above: Order Comment: A [...] #### C BC #### [facility] [address] [place] [address], URINALYSIS,AUTO-IN OFFICEon 08-25-2021 BILIRUBIN, URINE POC Negative Normal Negative [facility] Comment on above: Order Comment: TEST PERFORMED AT:Emergency Department POC [id number] [place] [address] Performed By: #### L IP, MG, HEPATIC, CH8 #### [facility] [address] [place] [address], BLOOD, URINE POC Negative Normal Negative [facility] Comment on above: Order Comment: TEST PERFORMED AT:Emergency Department POC [id number] [place] [address] Performed By: #### L IP, MG, HEPATIC, CH8 #### [facility] [address] [place] [address], CLARITY, POC Clear Normal [facility] Comment on above: Order Comment: TEST PERFORMED AT:Emergency Department POC [id number] [place] [address] Performed By: #### L IP, MG, HEPATIC, CH8 #### [facility] [address] [place] [address], COLOR, POC Yellow Normal [facility] Comment on above: Order Comment: TEST PERFORMED AT:Emergency Department POC [id number] [place] [address] Performed By: #### L IP, MG, HEPATIC, CH8 #### [facility] [address] [place] [address], GLUCOSE, URINE POC Negative Normal Negative [facility] Comment on above: Order Comment: TEST PERFORMED AT:Emergency Department POC [id number] [place] [address] Performed By: #### L IP, MG, HEPATIC, CH8 #### [facility] [address] [place] [address], KETONES, URINE POC Negative Normal Negative [facility] Comment on above: Order Comment: TEST PERFORMED AT:Emergency Department POC [id number] [place] [address] Performed By: #### L IP, MG, HEPATIC, CH8 #### [facility] [address] [place] [address], LEUKOCYTES, URINE POC Negative Normal Negative [facility] Comment on above: Order Comment: TEST PERFORMED AT:Emergency Department POC [id number] [place] [address] Performed By: #### L IP, MG, HEPATIC, CH8 #### [facility] [address] [place] [address], NITRITES, URINE POC Negative Normal Negative [facility] Comment on above: Order Comment: TEST PERFORMED AT:Emergency Department POC [id number] [place] [address] Performed By: #### L IP, MG, HEPATIC, CH8 #### [facility] [address] [place] [address], PH, URINE POC 5.5 Normal 5.0-8.0 [facility] Comment on above: Order Comment: TEST PERFORMED AT:Emergency Department POC [id number] [place] [address] Performed By: #### L IP, MG, HEPATIC, CH8 #### [facility] [address] [place] [address], PROTEIN, URINE POC Negative Normal Negative [facility] Comment on above: Order Comment: TEST PERFORMED AT:Emergency Department POC [id number] [place], [place] Performed By: #### L IP, MG, HEPATIC, CH8 #### [facility] [address] [place] [address], SPECIFIC GRAVITY, POC <=1.005 Normal 1.005 - 1.030 [facility] Comment on above: Order Comment: TEST PERFORMED AT:Emergency Department POC [id number] [place] [id number] Performed By: #### L IP, MG, HEPATIC, CH8 #### [facility] [address] [place] [address], UROBILINOGEN, URINE POC 0.2 Normal 0.2 - 1.0 [facility] Comment on above: Order Comment: TEST PERFORMED AT:Emergency Department POC [id number] [place] [id number] Performed By: #### L IP, MG, HEPATIC, CH8 #### [facility] [address] [place] [address], CULTURE URINEon 08-24-2021 CULTURE URINE Isolate 1 [...] Trimethoprim/Sulfamet hoxazole <=20 S F Normal [facility] Comment on above: Performed By: #### H JAMISONPN #### [facility] [address] [place] [id number] Uziel Reid BNPon 08-22-2021 Natriuretic peptide B (Bld) [Mass/Vol] 700.0 pg/mL Normal <=1,800.0 [facility] Comment on above: Performed By: #### H STROPN #### [facility] [address] [address] [address] Uziel Reid CBC AUTO DIFFon 08-22-2021 BASO # 0.0 103/ul Normal 0.0-0.1 [facility] Comment on above: Performed By: #### C BC #### [facility] [address] [place] [address] Dr. Uziel Reid Basophils/100 WBC (Bld) 0.3 % Normal 0.2-2.0 [facility] Comment on above: Performed By: #### C BC #### [facility] [address] [place] [address] Dr. Uziel Reid EO # 0.1 103/ul Normal 0.0-0.7 [facility] Comment on above: Performed By: #### C BC #### [facility] [address] [place] [address] Dr. Uziel Reid Eosinophils/100 WBC (Bld) 0.7 % Critically low 0.9-7.0 [facility] Comment on above: Performed By: #### C BC #### [facility] [address] [place] [address] Dr. Uziel Reid Erythrocyte distribution width (RBC) [Ratio] 13.3 % Normal 11.0-15.0 [facility] Comment on above: Performed By: #### C BC #### [facility] [address] [place] [address] Dr. Uziel Reid Hematocrit (Bld) [Volume fraction] 31.4 % Critically low 42.0-54.0 [facility] Comment on above: Performed By: #### C BC #### [facility] [address] [place] [address] Dr. Uziel Reid Hemoglobin (Bld) [Mass/Vol] 10.1 g/dL Critically low 14.0-18.0 [facility] Comment on above: Performed By: #### C BC #### [facility] [address] [place] [address] Dr. Uziel Reid IG # 0.10 10e3/ul Critically high 0.00-0.03 [facility] Comment on above: Performed By: #### C BC #### [facility] [address] [place] [address] Dr. Uziel Reid IG % 0.7 % Critically high 0.0-0.5 [facility] Comment on above: Performed By: #### C BC #### [facility] [address] [place] [address] Dr. Uziel Reid LYMPH # 0.9 103/ul Critically low 1.2-3.8 The [facility] Comment on above: Performed By: #### C BC #### [facility] [address] [place] [address] Dr. Uziel Reid Lymphocytes/100 WBC (Bld) 6.0 % Critically low 20.5-60.0 [facility] Comment on above: Performed By: #### C BC #### [facility] [address] [place] [address] Dr. Uziel Reid MANUAL DIFF REQ NO Normal [facility] Comment on above: Performed By: #### C BC #### [facility] [address] [place] [address] Dr. Uziel Reid MCH (RBC) [Entitic mass] 29.6 pg Normal 25.9-34.0 [facility] Comment on above: Performed By: #### C BC #### [facility] [address] [place] [address] Dr. Uziel Reid MCHC (RBC) [Mass/Vol] 32.2 g/dL Normal 29.9-35.2 [facility] Comment on above: Performed By: #### C BC #### [facility] [address] [place] [address] Dr. Uziel Reid MCV (RBC) [Entitic vol] 92.1 fL Normal 80.0-94.0 [facility] Comment on above: Performed By: #### C BC #### [facility] [address] [place] [address] Dr. Uziel Reid MONO # 1.5 103/ul Critically high 0.3-0.8 [facility] Comment on above: Performed By: #### C BC #### [facility] [id number] Uziel Reid Monocytes/100 WBC (Bld) 9.8 % Normal 1.7-12.0 [facility] Comment on above: Performed By: #### C BC #### [facility] [id number] Uziel Reid NEUT # 12.7 103/ul Critically high 1.4-6.5 [facility] Comment on above: Performed By: #### C BC #### [facility] [id number] Uziel Reid Neutrophils/100 WBC (Bld) 82.5 % Critically high 43.0-75.0 [facility] Comment on above: Performed By: #### C BC #### [facility] [address] [place] [address] Dr. Uziel Reid Platelet mean volume (Bld) [Entitic vol] 9.8 fL Normal 9.5-13.5 [facility] Comment on above: Performed By: #### C BC #### [facility] [id number] Uziel Reid PLT 199 103/ul Normal 150-450 [facility] Comment on above: Performed By: #### C BC #### [facility] [address] [place], [place] [id number] Dr. Uziel Reid RBC 3.41 106/ul Critically low 4.70-6.10 [facility] Comment on above: Performed By: #### C BC #### [facility] [address] [place], [place] [id number] Dr. Uziel Reid WBC 15.3 103/ul Critically high 4.0-11.0 [facility] Comment on above: Performed By: #### C BC #### [facility] [address] [place], [place] [id number] Dr. Uziel Reid Covid-19 [facility]02 SARS-CoV-2 (COVID-19) RNA ALFONSO+probe Ql (Unsp spec) Not detected Normal NOT DETECTED [facility] Comment on above: Result Comment: When diagnostic testing is negative, the possibility of a false negative should be considered in the context of a patient's recent exposures and the presence of clinical signs and symptoms consistent with SARS-CoV-2. This test is not yet approved or cleared by the [place] Food and Drug Administration (FDA). This test was developed by [employer], [place], [place]. The performance characteristics of this test were validated by The [facility]. The results are not intended to be used as the sole means for clinical diagnosis or patient management decisions. The [facility] is authorized under Clinical Laboratory Improvement Amendments [...] for this test is supported by the District Fire Chief of Health and Human Service's declaration that [...] longer be used). Performed By: #### C FERDINAND #### [facility] [address] [place] [address] Dr. Uziel Reid ER URINE PROFILEon 2 Bilirubin Ql (U) Negative Normal NEGATIVE [facility] Comment on above: Performed By: #### B MP, PHOS, MG #### [facility] [address] [place] [address] Dr. Uziel Reid Clarity (U) CLEAR Normal CLEAR [facility] Comment on above: Performed By: #### B MP, PHOS, MG #### [facility] [address] [place] [address] Dr. Uziel Reid Color (U) LT. YELLOW Normal YELLOW [facility] Comment on above: Performed By: #### B MP, PHOS, MG #### [facility] [address] [place] [address] Dr. Uziel Reid ERUAHD A micrscopic examination will be performed if indicated. Normal [facility] Comment on above: Performed By: #### B MP, PHOS, MG #### [facility] [address] [address] [address] Uziel Reid Glucose Ql (U) Negative Normal NEGATIVE [facility] Comment on above: Performed By: #### B MP, PHOS, MG #### [facility] [address] [address] [address] Uziel Reid Hemoglobin Ql (U) Negative Normal NEGATIVE [facility] Comment on above: Performed By: #### B MP, PHOS, MG #### [facility] [address] [address] [address] Uziel Reid Ketones Ql (U) Negative Normal NEGATIVE [facility] Comment on above: Performed By: #### B MP, PHOS, MG #### [facility] [address] [place] [address] Dr. Uziel Reid LEUKOCYTES TRACE Abnormal NEGATIVE [facility] Comment on above: Performed By: #### B MP, PHOS, MG #### [facility] [address] [place] [address] Dr. Uziel Reid Nitrite Ql (U) Positive Abnormal NEGATIVE [facility] Comment on above: Performed By: #### B MP, PHOS, MG #### [facility] [address] [place] [address] Dr. Uziel Reid pH (U) 6.0 [pH] Normal 5-9 [facility] Comment on above: Performed By: #### B MP, PHOS, MG #### [facility] [address] [address] [address] Uziel Reid SPEC GRAVITY 1.010 Normal 1.005-<=1.025 [facility] Comment on above: Performed By: #### B MP, PHOS, MG #### [facility] [address] [place] [address] Dr. Uziel Reid UA PROTEIN Negative Normal NEGATIVE/ TRACE [facility] Comment on above: Performed By: #### B MP, PHOS, MG #### [facility] [address] [address] [address] Uziel Reid UR MICRO IND INDICATED Normal [facility] Comment on above: Performed By: #### B MP, PHOS, MG #### [facility] [address] [address] [address] Uziel Reid Urobilinogen Qn (U) 0.2 {Sushma'U}/dL Normal 0.2 - 1. 0 [facility] Comment on above: Performed By: #### B MP, PHOS, MG #### [facility] [address] [place] [address] Dr. Uziel Reid PROF 14(COMP METB)on 022 Albumin [Mass/Vol] 1.8 g/dL Critically low 3.5-5.0 [facility] Comment on above: Performed By: #### H STROPN #### [facility] [address] [place] [address] Dr. Uziel Reid Albumin/Globulin [Mass ratio] 0.4 {ratio} Normal [facility] Comment on above: Performed By: #### H STROPN #### [facility] [address] [place] [address] Dr. Uziel Reid ALP [Catalytic activity/Vol] 211 U/L Critically high 38-126 [facility] Comment on above: Performed By: #### H STROPN #### [facility] [address] [place] [address] Dr. Uziel Reid ALT [Catalytic activity/Vol] 104 U/L Critically high 21-72 [facility] Comment on above: Performed By: #### H STROPN #### [facility] [address] [place] [address] Dr. Uziel Reid Anion gap [Moles/Vol] 7.1 mmol/L Normal [facility] Comment on above: Performed By: #### H STROPN #### [facility] [address] [place] [address] Dr. Uziel Reid AST [Catalytic activity/Vol] 86 U/L Critically high 17-59 [facility] Comment on above: Performed By: #### H STROPN #### [facility] [address] [address] [address] Uziel Reid Bilirubin [Mass/Vol] 0.7 mg/dL Normal 0.2-1.3 [facility] Comment on above: Performed By: #### H STROPN #### [facility] [address] [address] [address] Uziel Reid Calcium [Mass/Vol] 8.2 mg/dL Critically low 8.4-10.2 [facility] Comment on above: Performed By: #### H STROPN #### [facility] [address] [address] [address] Uziel Reid Chloride [Moles/Vol] 88 mmol/L Critically low 98-107 [facility] Comment on above: Performed By: #### H STROPN #### [facility] [address] [place] [address] Dr. Uziel Reid CO2 [Moles/Vol] 36.3 mmol/L Critically high 22.0-30.0 [facility] Comment on above: Performed By: #### H STROPN #### [facility] [address] [address] [address] Uziel Reid Creatinine [Mass/Vol] 1.75 mg/dL Critically high 0.66-1.25 [facility] Comment on above: Performed By: #### H STROPN #### [facility] [address] [address] [address] Uziel Reid EGFR-AF [place] 45 mL/min/1.73m2 Critically low >=60 [facility] Comment on above: Performed By: #### H STROPN #### [facility] [address] [address] [address] Uziel Reid EGFR-NON AF [place] 37 mL/min/1.73m2 Critically low >=60 [facility] Comment on above: Performed By: #### H STROPN #### [facility] [address] [address] [address] Uziel Reid Globulin (S) [Mass/Vol] 5.0 g/dL Normal [facility] Comment on above: Performed By: #### H STROPN #### [facility] [address] [address] [address] Uziel Reid Glucose [Mass/Vol] 226 mg/dL Critically high 74-106 T [facility] Comment on above: Performed By: #### H STROPN #### [facility] [address] [address] [address] Uziel Reid Potassium [Moles/Vol] 3.4 mmol/L Normal 3.4-5.0 [facility] Comment on above: Performed By: #### H STROPN #### [facility] [address] [address] [address] Uziel Reid Protein [Mass/Vol] 6.8 g/dL Normal 6.1-8.2 [facility] Comment on above: Performed By: #### H STROPN #### [facility] [address] [place] [address] Dr. Uziel Reid Sodium [Moles/Vol] 128 mmol/L Critically low 137-145 [facility] Comment on above: Performed By: #### H STROPN #### [facility] [address] [address] [address] Uziel Reid Urea nitrogen [Mass/Vol] 30.0 mg/dL Critically high 9.0-20.0 [facility] Comment on above: Performed By: #### H STROPN #### [facility] [address] [place] [address] Dr. Uziel Reid Urea nitrogen/Creatinine [Mass ratio] 17.1 mg/mg Normal [facility] Comment on above: Performed By: #### H STROPN #### [facility] [address] [place] [address] Dr. Uziel Reid TROPONIN, HIGH SENSITIVITYon 08-22-2021 HSTROP 8.2 pg/mL Normal 4.0-42.2 [facility] Comment on above: Result Comment: CUT- OFF POINTS HAVE BEEN ESTABLISHED BASED ON THE FOURTH UNIVERSAL DEFINITIONS OF MYOCARDIAL INFARCTION. THE UPPER REFERENCE LIMIT (URL) OF TROPONIN, DEFINED THE 99TH PERCENTILE OF cTnI DISTRIBUTION IN A REFERENCE POPULATION, HAS BEEN CONFIRMED THE DECISION THRESHOLD FOR [place] DIAGNOSIS. Performed By: #### H STROPN #### [facility] [address] [place] [address] Dr. Uziel Reid URINE MICROSCOPIC ONLYon BACTERIA MODERATE Abnormal NONE SEEN [facility] Comment on above: Performed By: #### B MP, PHOS, MG #### [facility] [address] [place] [address] Dr. Uziel Reid Bacteria identified Cx Nom (U) INDICATED Normal [facility] Comment on above: Performed By: #### B MP, PHOS, MG #### [facility] [address] [place] [address] Dr. Uziel Reid CAST NONE SEEN Normal NONE SEEN [facility] Comment on above: Performed By: #### B MP, PHOS, MG #### [facility] [address] [place] [address] Dr. Uziel Reid Crystals LM Nom (Urine sed) NONE SEEN Normal NONE SEEN [facility] Comment on above: Performed By: #### B MP, PHOS, MG #### [facility] [address] [place] [address] Dr. Uziel Reid Epithelial cells LM Ql (Urine sed) NONE SEEN Normal NONE SEEN /RARE [facility] Comment on above: Performed By: #### B MP, PHOS, MG #### [facility] [address] [place] [address] Dr. Uziel Reid MUCOUS NONE SEEN Normal NONE SEEN [facility] Comment on above: Performed By: #### B MP, PHOS, MG #### [facility] [address] [place] [address] Dr. Uziel Reid RBC 0-2 Normal 0-2 [facility] Comment on above: Performed By: #### B MP, PHOS, MG #### [facility] [address] [place] [address] Dr. Uziel Reid WBC 10-20 Abnormal NONE SEEN [facility] Comment on above: Performed By: #### B MP, PHOS, MG #### [facility] [address] [place] [address] Dr. Uziel Reid XR CHEST 1 Von [...] GERARDO BRADY Date: 2021-08-22 00:30 Normal [facility] CBC W MANUAL DIFFon 08-18-19 ATYPICAL LYMPH # Normal [facility] Comment on above: Performed By: #### C FERDINAND #### [facility] [address] [place] [address] Dr. Uziel Reid ATYPICAL LYMPH % Normal [facility] Comment on above: Performed By: #### C FERDINAND #### [facility] [address] [address] [address] Uziel Reid BAND # Normal 0.0-0.3 [facility] Comment on above: Performed By: #### C FERDINAND #### [facility] [address] [address] [address] Uziel Reid BAND % Normal 0-5 [facility] Comment on above: Performed By: #### C FERDINAND #### [facility] [address] [address] [address] Uziel Reid BASOM # 0.00 103/ul Normal 0.00-0.10 [facility] Comment on above: Performed By: #### C FERDINAND #### [facility] [address] [address] [address] Uziel Reid BASOM % 0.0 % Critically low 0.2-2.0 [facility] Comment on above: Performed By: #### C BCSARIKA #### [facility] [address] [place] [address] Dr. Uziel Reid BLAST # Normal [facility] Comment on above: Performed By: #### C FERDINAND #### [facility] [address] [address] [address] Uziel Reid BLAST % Normal [facility] Comment on above: Performed By: #### C FERDINAND #### [facility] [address] [place] [address] Dr. Uziel Reid CORRECTED WBC Normal 4.0-11.0 [facility] Comment on above: Performed By: #### C FERDINAND #### [facility] [address] [place] [address] Dr. Uziel Reid EOS # 0.00 103/ul Normal 0.00-0.70 [facility] Comment on above: Performed By: #### C FERDINAND #### [facility] [address] [place] [address] Dr. Uziel Reid EOS% 0.0 % Critically low 0.9-7.0 [facility] Comment on above: Performed By: #### C FERDINAND #### [facility] [address] [place] [address] Dr. Uziel Reid HCT 31.8 % Critically low 42.0-54.0 [facility] Comment on above: Performed By: #### C FERDINAND #### [facility] [address] [place] [address] Dr. Uziel Reid HGB 10.2 g/dl Critically low 14.0-18.0 [facility] Comment on above: Performed By: #### C FERDINAND #### [facility] [address] [place] [address] Dr. Uziel Reid LYMPHM # 1.83 103/ul Normal 1.20-3.80 [facility] Comment on above: Performed By: #### C FERDINAND #### [facility] [address] [place] [address] Dr. Uziel Reid LYMPHM% 11.0 % Critically low 20.5-60.0 [facility] Comment on above: Performed By: #### C FERDINAND #### [facility] [address] [place] [address] Dr. Uziel Reid MCH 29.7 pg Normal 25.9-34.0 [facility] Comment on above: Performed By: #### C FERDINAND #### [facility] [address] [place] [address] Dr. Uziel Reid MCHC 32.1 g/dl Normal 29.9-35.2 [facility] Comment on above: Performed By: #### C FERDINAND #### [facility] [address] [place] [address] Dr. Uziel Reid MCV 92.7 fL Normal 80.0-94.0 [facility] Comment on above: Performed By: #### C FERDINAND #### [facility] [address] [place] [address] Dr. Uziel Reid METAMYELOCYTE # Normal [facility] Comment on above: Performed By: #### C FERDINAND #### [facility] [address] [place] [address] Dr. Uziel Reid METAMYELOCYTE % Normal [facility] Comment on above: Performed By: #### C FERDINAND #### [facility] [address] [place] [address] Dr. Uziel Reid MONOM# 1.83 103/ul Critically high 0.30-0.80 [facility] Comment on above: Performed By: #### C FERDINAND #### [facility] [address] [place] [address] Dr. Uziel Reid MONOM% 11.0 % Normal 1.7-12.0 [facility] Comment on above: Performed By: #### C FERDINAND #### [facility] [address] [place] [address] Dr. Uziel Reid MPV 9.8 fL Normal 9.5-13.5 [facility] Comment on above: Performed By: #### C FERDINAND #### [facility] [address] [place] [address] Dr. Uziel Reid MYELOCYTE # Normal [facility] Comment on above: Performed By: #### C FERDINAND #### [facility] [address] [place] [address] Dr. Uziel Reid MYELOCYTE % Normal [facility] Comment on above: Performed By: #### C FERDINAND #### [facility] [address] [address] [address] Uziel Reid NRBC Normal [facility] Comment on above: Performed By: #### C FERDINAND #### [facility] [address] [address] [address] Uziel Reid PLT 240 103/ul Normal 150-450 [facility] Comment on above: Performed By: #### C FERDINAND #### [facility] [address] [address] [address] Uziel Reid RBC 3.43 106/ul Critically low 4.70-6.10 [facility] Comment on above: Performed By: #### C FERDINAND #### [facility] [address] [place] [address] Dr. Uziel Reid RDW 13.3 % Normal 11.0-15.0 [facility] Comment on above: Performed By: #### C FERDINAND #### [facility] [address] [address] [address] Uziel Reid SEG # 12.95 103/ul Critically high 1.40-6.50 [facility] Comment on above: Performed By: #### C FERDINAND #### [facility] [address] [address] [address] Uziel Reid SEG % 78.0 % Critically high 43.0-75.0 [facility] Comment on above: Performed By: #### C FERDINAND #### [facility] [address] [address] [address] Uziel Reid WBC 16.6 103/ul Critically high 4.0-11.0 [facility] Comment on above: Performed By: #### C FERDINAND #### [facility] [address] [place] [address] Dr. Uziel Reid PROF 14(COMP METB)on 022 Albumin [Mass/Vol] 1.9 g/dL Critically low 3.5-5.0 [facility] Comment on above: Performed By: #### B MP, PHOS, MG #### [facility] [address] [place] [address] Dr. Uziel Reid Albumin/Globulin [Mass ratio] 0.4 {ratio} Normal [facility] Comment on above: Performed By: #### B MP, PHOS, MG #### [facility] [address] [place] [address] Dr. Uziel Reid ALP [Catalytic activity/Vol] 130 U/L Critically high 38-126 [facility] Comment on above: Performed By: #### B MP, PHOS, MG #### [facility] [address] [place] [address] Dr. Uziel Reid ALT [Catalytic activity/Vol] 38 U/L Normal 21-72 [facility] Comment on above: Performed By: #### B MP, PHOS, MG #### [facility] [address] [place] [address] Dr. Uziel Reid Anion gap [Moles/Vol] 6.0 mmol/L Normal [facility] Comment on above: Performed By: #### B MP, PHOS, MG #### [facility] [address] [place] [address] Dr. Uziel Reid AST [Catalytic activity/Vol] 29 U/L Normal 17-59 [facility] Comment on above: Performed By: #### B MP, PHOS, MG #### [facility] [address] [place] [address] Dr. Uziel Reid Bilirubin [Mass/Vol] 0.8 mg/dL Normal 0.2-1.3 [facility] Comment on above: Performed By: #### B MP, PHOS, MG #### [facility] [address] [place] [address] Dr. Uziel Reid Calcium [Mass/Vol] 8.2 mg/dL Critically low 8.4-10.2 [facility] Comment on above: Performed By: #### B MP, PHOS, MG #### [facility] [address] [place] [address] Dr. Uziel Reid Chloride [Moles/Vol] 90 mmol/L Critically low 98-107 [facility] Comment on above: Performed By: #### B MP, PHOS, MG #### [facility] [address] [place] [address] Dr. Uziel Reid CO2 [Moles/Vol] 39.8 mmol/L Critically high 22.0-30.0 [facility] Comment on above: Performed By: #### B MP, PHOS, MG #### [facility] [address] [place] [address] Dr. Uziel Reid Creatinine [Mass/Vol] 1.12 mg/dL Normal 0.66-1.25 [facility] Comment on above: Performed By: #### B MP, PHOS, MG #### [facility] [address] [place] [address] Dr. Uziel Reid EGFR-AF [place] 76 mL/min/1.73m2 Normal >=60 [facility] Comment on above: Performed By: #### B MP, PHOS, MG #### [facility] [address] [place] [address] Dr. Uziel Reid EGFR-NON AF [place] 62 mL/min/1.73m2 Normal >=60 [facility] Comment on above: Performed By: #### B MP, PHOS, MG #### [facility] [address] [place] [address] Dr. Uziel Reid Globulin (S) [Mass/Vol] 4.7 g/dL Normal [facility] Comment on above: Performed By: #### B MP, PHOS, MG #### [facility] [address] [place] [address] Dr. Uziel Reid Glucose [Mass/Vol] 131 mg/dL Critically high 74-106 T [facility] Comment on above: Performed By: #### B MP, PHOS, MG #### [facility] [address] [place] [address] Dr. Uziel Reid Potassium [Moles/Vol] 2.8 mmol/L Critically low 3.4-5.0 [facility] Comment on above: Result Comment: TEST REPEATED CRITICAL VALUE VERIFIED Performed By: #### B MP, PHOS, MG #### [facility] [address] [address] [address] Uziel Reid Protein [Mass/Vol] 6.6 g/dL Normal 6.1-8.2 [facility] Comment on above: Performed By: #### B MP, PHOS, MG #### [facility] [address] [place] [address] Dr. Uziel Reid Sodium [Moles/Vol] 132 mmol/L Critically low 137-145 Th [facility] Comment on above: Performed By: #### B MP, PHOS, MG #### [facility] [address] [address] [address] Uziel Reid Urea nitrogen [Mass/Vol] 19.0 mg/dL Normal 9.0-20.0 [facility] Comment on above: Performed By: #### B MP, PHOS, MG #### [facility] [address] [place] [address] Dr. Uziel Reid Urea nitrogen/Creatinine [Mass ratio] 17.0 mg/mg Normal [facility] Comment on above: Performed By: #### B MP, PHOS, MG #### [facility] [address] [place] [address] Dr. Uziel Reid TROPONIN, HIGH SENSITIVITYon 08-18-2021 HSTROP 7.6 pg/mL Normal 4.0-42.2 [facility] Comment on above: Result Comment: CUT- OFF POINTS HAVE BEEN ESTABLISHED BASED ON THE FOURTH UNIVERSAL DEFINITIONS OF MYOCARDIAL INFARCTION. THE UPPER REFERENCE LIMIT (URL) OF TROPONIN, DEFINED THE 99TH PERCENTILE OF cTnI DISTRIBUTION IN A REFERENCE POPULATION, HAS BEEN CONFIRMED THE DECISION THRESHOLD FOR [place] DIAGNOSIS. Performed By: #### H STROPN #### [facility] [address] [place] [address] Dr. Uziel Reid MAGNESIUMon 08-10-2021 Magnesium [Mass/Vol] 2.2 mg/dL Normal 1.6-2.3 [facility] Comment on above: Performed By: #### B MP, PHOS, MG #### [facility] [address] [place] [address] Dr. Uziel Reid PHOSPHORUSon 08-10-2021 Phosphate [Mass/Vol] 3.0 mg/dL Normal 2.5-4.5 [facility] Comment on above: Performed By: #### B MP, PHOS, MG #### [facility] [address] [place] [address] Dr. Uziel Reid POINT OF CARE GLUCOSEon 08-01 Glucose [Mass/Vol] 135 mg/dL Critically high 74-106 T [facility] Comment on above: Performed By: #### P OCGLUC #### [facility] [address] [address] [address] Uziel Reid PROF CHEM 8 (BAS METB)on Anion gap [Moles/Vol] 1.8 mmol/L Normal [facility] Comment on above: Performed By: #### B MP, PHOS, MG #### [facility] [address] [place] [address] Dr. Uziel Reid Calcium [Mass/Vol] 7.8 mg/dL Critically low 8.4-10.2 Th [facility] Comment on above: Performed By: #### B MP, PHOS, MG #### [facility] [address] [address] [address] Uziel Reid Chloride [Moles/Vol] 100 mmol/L Normal 98-107 [facility] Comment on above: Performed By: #### B MP, PHOS, MG #### [facility] [address] [place] [address] Dr. Uziel Reid CO2 [Moles/Vol] 37.0 mmol/L Critically high 22.0-30.0 [facility] Comment on above: Performed By: #### B MP, PHOS, MG #### [facility] [address] [address] [address] Uziel Reid Creatinine [Mass/Vol] 0.73 mg/dL Normal 0.66-1.25 [facility] Comment on above: Performed By: #### B MP, PHOS, MG #### [facility] [address] [address] [address] Uziel Reid EGFR-AF [place] >60 Normal >=60 [facility] Comment on above: Performed By: #### B MP, PHOS, MG #### [facility] [address] [place] [address] Dr. Uziel Reid EGFR-NON AF [place] >60 Normal >=60 [facility] Comment on above: Performed By: #### B MP, PHOS, MG #### [facility] [address] [place] [address] Dr. Uziel Reid Glucose [Mass/Vol] 136 mg/dL Critically high 74-106 T [facility] Comment on above: Performed By: #### B MP, PHOS, MG #### [facility] [address] [place] [address] Dr. Uziel Reid Potassium [Moles/Vol] 3.8 mmol/L Normal 3.4-5.0 [facility] Comment on above: Performed By: #### B MP, PHOS, MG #### [facility] [address] [place] [address] Dr. Uziel Reid Sodium [Moles/Vol] 135 mmol/L Critically low 137-145 [facility] Comment on above: Performed By: #### B MP, PHOS, MG #### [facility] [address] [place] [address] Dr. Uziel Reid Urea nitrogen [Mass/Vol] 16.0 mg/dL Normal 9.0-20.0 [facility] Comment on above: Performed By: #### B MP, PHOS, MG #### [facility] [address] [place] [address] Dr. Uziel Reid Urea nitrogen/Creatinine [Mass ratio] 21.9 mg/mg Normal [facility] Comment on above: Performed By: #### B MP, PHOS, MG #### [facility] [address] [place] [address] Dr. Uziel Reid BNPon 08-09-2021 Natriuretic peptide B (Bld) [Mass/Vol] 301.0 pg/mL Normal <=1,800.0 [facility] Comment on above: Performed By: #### B MP, PHOS, MG #### [facility] [address] [place], [place] [id number] Dr. Uziel Reid MAGNESIUMon 08-09-2021 Magnesium [Mass/Vol] 2.4 mg/dL Critically high 1.6-2.3 [facility] Comment on above: Performed By: #### B MP, PHOS, MG #### [facility] [address] [place] [address] Dr. Uziel Reid PHOSPHORUSon 08-09-2021 Phosphate [Mass/Vol] 3.1 mg/dL Normal 2.5-4.5 [facility] Comment on above: Performed By: #### B MP, PHOS, MG #### [facility] [address] [place] [address] Dr. Uziel Reid POINT OF CARE GLUCOSEon Glucose [Mass/Vol] 158 mg/dL Critically high 74-106 [facility] Comment on above: Performed By: #### B MP, PHOS, MG #### [facility] [address] [place] [address] Dr. Uziel Reid Glucose [Mass/Vol] 188 mg/dL Critically high 74-106 [facility] Comment on above: Performed By: #### B MP, PHOS, MG #### [facility] [address] [place] [address] Dr. Uziel Reid PROF CHEM 8 (BAS METB)on Anion gap [Moles/Vol] 4.8 mmol/L Normal [facility] Comment on above: Performed By: #### B MP, PHOS, MG #### [facility] [address] [place] [address] Dr. Uziel Reid Calcium [Mass/Vol] 7.5 mg/dL Critically low 8.4-10.2 Th [facility] Comment on above: Performed By: #### B MP, PHOS, MG #### [facility] [address] [place] [address] Dr. Uziel Reid Chloride [Moles/Vol] 101 mmol/L Normal 98-107 [facility] Comment on above: Performed By: #### B MP, PHOS, MG #### [facility] [address] [address] [address] Uziel Reid CO2 [Moles/Vol] 36.9 mmol/L Critically high 22.0-30.0 [facility] Comment on above: Performed By: #### B MP, PHOS, MG #### [facility] [address] [address] [address] Uziel Reid Creatinine [Mass/Vol] 0.64 mg/dL Critically low 0.66-1.25 [facility] Comment on above: Performed By: #### B MP, PHOS, MG #### [facility] [address] [address] [address] Uziel Reid EGFR-AF [place] >60 Normal >=60 [facility] Comment on above: Performed By: #### B MP, PHOS, MG #### [facility] [address] [place] [address] Dr. Uziel Reid EGFR-NON AF [place] >60 Normal >=60 [facility] Comment on above: Performed By: #### B MP, PHOS, MG #### [facility] [address] [address] [address] Uziel Reid Glucose [Mass/Vol] 122 mg/dL Critically high 74-106 [facility] Comment on above: Performed By: #### B MP, PHOS, MG #### [facility] [address] [place] [address] Dr. Uziel Reid Potassium [Moles/Vol] 3.7 mmol/L Normal 3.4-5.0 [facility] Comment on above: Performed By: #### B MP, PHOS, MG #### [facility] [address] [address] [address] Uziel Reid Sodium [Moles/Vol] 139 mmol/L Normal 137-145 [facility] Comment on above: Performed By: #### B MP, PHOS, MG #### [facility] [address] [address] [address] Uziel Reid Urea nitrogen [Mass/Vol] 21.0 mg/dL Critically high 9.0-20.0 [facility] Comment on above: Performed By: #### B MP, PHOS, MG #### [facility] [address] [address] [address] Uziel Reid Urea nitrogen/Creatinine [Mass ratio] 32.8 mg/mg Normal [facility] Comment on above: Performed By: #### B MP, PHOS, MG #### [facility] [address] [address] [address] Uziel Reid XR CHEST 2 Von [...] by: DOMINIC STEVE Date: 2021-08-09 15:11 Normal [facility] MAGNESIUMon 08-08-2021 Magnesium [Mass/Vol] 2.5 mg/dL Critically high 1.6-2.3 [facility] Comment on above: Performed By: #### B MP, PHOS, MG #### [facility] [address] [place] [address] Dr. Uziel Reid PHOSPHORUSon 08-08-2021 Phosphate [Mass/Vol] 2.4 mg/dL Critically low 2.5-4.5 [facility] Comment on above: Performed By: #### B MP, PHOS, MG #### [facility] [address] [place] [address] Dr. Uziel Reid PROF CHEM 8 (BAS METB)on Anion gap [Moles/Vol] 5.7 mmol/L Normal [facility] Comment on above: Performed By: #### B MP, PHOS, MG #### [facility] [address] [place] [address] Dr. Uziel Reid Calcium [Mass/Vol] 7.3 mg/dL Critically low 8.4-10.2 [facility] Comment on above: Performed By: #### B MP, PHOS, MG #### [facility] [address] [place] [address] Dr. Uziel Reid Chloride [Moles/Vol] 102 mmol/L Normal 98-107 [facility] Comment on above: Performed By: #### B MP, PHOS, MG #### [facility] [address] [place] [address] Dr. Uziel Reid CO2 [Moles/Vol] 34.6 mmol/L Critically high 22.0-30.0 [facility] Comment on above: Performed By: #### B MP, PHOS, MG #### [facility] [address] [place] [address] Dr. Uziel Reid Creatinine [Mass/Vol] 0.64 mg/dL Critically low 0.66-1.25 [facility] Comment on above: Performed By: #### B MP, PHOS, MG #### [facility] [address] [place] [address] Dr. Uziel Reid EGFR-AF [place] >60 Normal >=60 [facility] Comment on above: Performed By: #### B MP, PHOS, MG #### [facility] [address] [place] [address] Dr. Uziel Reid EGFR-NON AF [place] >60 Normal >=60 [facility] Comment on above: Performed By: #### B MP, PHOS, MG #### [facility] [address] [place] [address] Dr. Uziel Reid Glucose [Mass/Vol] 259 mg/dL Critically high 74-106 T [facility] Comment on above: Performed By: #### B MP, PHOS, MG #### [facility] [address] [place] [address] Dr. Uziel Reid Potassium [Moles/Vol] 3.3 mmol/L Critically low 3.4-5.0 [facility] Comment on above: Performed By: #### B MP, PHOS, MG #### [facility] [address] [place] [address] Dr. Uziel Reid Sodium [Moles/Vol] 139 mmol/L Normal 137-145 [facility] Comment on above: Performed By: #### B MP, PHOS, MG #### [facility] [address] [place] [address] Dr. Uziel Reid Urea nitrogen [Mass/Vol] 19.0 mg/dL Normal 9.0-20.0 [facility] Comment on above: Performed By: #### B MP, PHOS, MG #### [facility] [address] [place] [address] Dr. Uziel Reid Urea nitrogen/Creatinine [Mass ratio] 29.7 mg/mg Normal [facility] Comment on above: Performed By: #### B MP, PHOS, MG #### [facility] [address] [place] [address] Dr. Uziel Reid MAGNESIUMon 08-07-2021 Magnesium [Mass/Vol] 2.6 mg/dL Critically high 1.6-2.3 [facility] Comment on above: Performed By: #### P OCGLUC #### [facility] [address] [place] [address] Dr. Uziel Reid PHOSPHORUSon 08-07-2021 Phosphate [Mass/Vol] 2.3 mg/dL Critically low 2.5-4.5 [facility] Comment on above: Performed By: #### B MP, PHOS, MG #### [facility] [address] [place] [address] Dr. Uziel Reid POINT OF CARE GLUCOSEon Glucose [Mass/Vol] 191 mg/dL Critically high 74-106 T [facility] Comment on above: Performed By: #### B MP, PHOS, MG #### [facility] [address] [place] [address] Dr. Uziel Reid PROF CHEM 8 (BAS METB)on Anion gap [Moles/Vol] 1.8 mmol/L Normal [facility] Comment on above: Performed By: #### P OCGLUC #### [facility] [address] [place] [address] Dr. Uziel Reid Calcium [Mass/Vol] 7.4 mg/dL Critically low 8.4-10.2 Th [facility] Comment on above: Performed By: #### P OCGLUC #### [facility] [address] [address] [address] Uziel Reid Chloride [Moles/Vol] 106 mmol/L Normal 98-107 [facility] Comment on above: Performed By: #### P OCGLUC #### [facility] [address] [address] [address] Uziel Reid CO2 [Moles/Vol] 38.3 mmol/L Critically high 22.0-30.0 [facility] Comment on above: Performed By: #### P OCGLUC #### [facility] [address] [place] [address] Dr. Uziel Reid Creatinine [Mass/Vol] 0.65 mg/dL Critically low 0.66-1.25 [facility] Comment on above: Performed By: #### P OCGLUC #### [facility] [address] [place] [address] Dr. Uziel Reid EGFR-AF [place] >60 Normal >=60 [facility] Comment on above: Performed By: #### P OCGLUC #### [facility] [address] [place] [address] Dr. Uziel Reid EGFR-NON AF [place] >60 Normal >=60 [facility] Comment on above: Performed By: #### P OCGLUC #### [facility] [address] [address] [address] Uziel Reid Glucose [Mass/Vol] 208 mg/dL Critically high 74-106 [facility] Comment on above: Performed By: #### P OCGLUC #### [facility] [address] [address] [address] Uziel Reid Potassium [Moles/Vol] 3.1 mmol/L Critically low 3.4-5.0 [facility] Comment on above: Performed By: #### P OCGLUC #### [facility] [address] [address] [address] Uziel Reid Sodium [Moles/Vol] 143 mmol/L Normal 137-145 [facility] Comment on above: Performed By: #### P OCGLUC #### [facility] [address] [place] [address] Dr. Uziel Reid Urea nitrogen [Mass/Vol] 19.0 mg/dL Normal 9.0-20.0 [facility] Comment on above: Performed By: #### P OCGLUC #### [facility] [address] [place] [address] Dr. Uziel Reid Urea nitrogen/Creatinine [Mass ratio] 29.2 mg/mg Normal [facility] Comment on above: Performed By: #### P OCGLUC #### [facility] [address] [place] [address] Dr. Uziel Reid CBC AUTO DIFFon 08-06-2021 BASO # 0.0 103/ul Normal 0.0-0.1 [facility] Comment on above: Performed By: #### B MP, PHOS, MG #### [facility] [address] [place] [address] Dr. Uziel Reid Basophils/100 WBC (Bld) 0.2 % Normal 0.2-2.0 [facility] Comment on above: Performed By: #### B MP, PHOS, MG #### [facility] [address] [place] [address] Dr. Uziel Reid EO # 0.2 103/ul Normal 0.0-0.7 [facility] Comment on above: Performed By: #### B MP, PHOS, MG #### [facility] [address] [place] [address] Dr. Uziel Reid Eosinophils/100 WBC (Bld) 1.3 % Normal 0.9-7.0 [facility] Comment on above: Performed By: #### B MP, PHOS, MG #### [facility] [address] [place] [address] Dr. Uziel Reid Erythrocyte distribution width (RBC) [Ratio] 13.5 % Normal 11.0-15.0 [facility] Comment on above: Performed By: #### B MP, PHOS, MG #### [facility] [address] [place] [address] Dr. Uziel Reid Hematocrit (Bld) [Volume fraction] 38.6 % Critically low 42.0-54.0 [facility] Comment on above: Performed By: #### B MP, PHOS, MG #### [facility] [address] [place] [address] Dr. Uziel Reid Hemoglobin (Bld) [Mass/Vol] 12.2 g/dL Critically low 14.0-18.0 [facility] Comment on above: Performed By: #### B MP, PHOS, MG #### [facility] [address] [place] [address] Dr. Uziel Reid IG # 0.35 10e3/ul Critically high 0.00-0.03 [facility] Comment on above: Performed By: #### B MP, PHOS, MG #### [facility] [address] [place] [address] Dr. Uziel Reid IG % 2.2 % Critically high 0.0-0.5 [facility] Comment on above: Performed By: #### B MP, PHOS, MG #### [facility] [address] [place] [address] Dr. Uziel Reid LYMPH # 1.0 103/ul Critically low 1.2-3.8 [facility] Comment on above: Performed By: #### B MP, PHOS, MG #### [facility] [address] [place] [address] Dr. Uziel Reid Lymphocytes/100 WBC (Bld) 6.1 % Critically low 20.5-60.0 [facility] Comment on above: Performed By: #### B MP, PHOS, MG #### [facility] [address] [place] [address] Dr. Uziel Reid MANUAL DIFF REQ NO Normal [facility] Comment on above: Performed By: #### B MP, PHOS, MG #### [facility] [address] [place] [address] Dr. Uziel Reid MCH (RBC) [Entitic mass] 30.1 pg Normal 25.9-34.0 [facility] Comment on above: Performed By: #### B MP, PHOS, MG #### [facility] [address] [place] [address] Dr. Uziel Reid MCHC (RBC) [Mass/Vol] 31.6 g/dL Normal 29.9-35.2 [facility] Comment on above: Performed By: #### B MP, PHOS, MG #### [facility] [address] [place] [address] Dr. Uziel Reid MCV (RBC) [Entitic vol] 95.3 fL Critically high 80.0-94.0 [facility] Comment on above: Performed By: #### B MP, PHOS, MG #### [facility] [address] [place] [address] Dr. Uziel Reid MONO # 1.2 103/ul Critically high 0.3-0.8 [facility] Comment on above: Performed By: #### B MP, PHOS, MG #### [facility] [address] [place] [address] Dr. Uziel Reid Monocytes/100 WBC (Bld) 7.6 % Normal 1.7-12.0 [facility] Comment on above: Performed By: #### B MP, PHOS, MG #### [facility] [address] [place] [address] Dr. Uziel Reid NEUT # 13.3 103/ul Critically high 1.4-6.5 [facility] Comment on above: Performed By: #### B MP, PHOS, MG #### [facility] [address] [place] [address] Dr. Uziel Reid Neutrophils/100 WBC (Bld) 82.6 % Critically high 43.0-75.0 [facility] Comment on above: Performed By: #### B MP, PHOS, MG #### [facility] [address] [place] [address] Dr. Uziel Reid Platelet mean volume (Bld) [Entitic vol] 10.0 fL Normal 9.5-13.5 [facility] Comment on above: Performed By: #### B MP, PHOS, MG #### [facility] [address] [address] [address] Uziel Reid PLT 206 103/ul Normal 150-450 [facility] Comment on above: Performed By: #### B MP, PHOS, MG #### [facility] [address] [address] [address] Uziel Reid RBC 4.05 106/ul Critically low 4.70-6.10 [facility] Comment on above: Performed By: #### B MP, PHOS, MG #### [facility] [address] [address] [address] Uziel Reid WBC 16.2 103/ul Critically high 4.0-11.0 [facility] Comment on above: Performed By: #### B MP, PHOS, MG #### [facility] [address] [place] [address] Dr. Uziel Reid POINT OF CARE GLUCOSEon Glucose [Mass/Vol] 202 mg/dL Critically high 74-106 [facility] Comment on above: Performed By: #### B MP, PHOS, MG #### [facility] [address] [address] [address] Uziel Reid Glucose [Mass/Vol] 192 mg/dL Critically high 74-106 [facility] Comment on above: Performed By: #### P OCGLUC #### [facility] [address] [place] [address] Dr. Uziel Reid Glucose [Mass/Vol] 234 mg/dL Critically high 74-106 [facility] Comment on above: Performed By: #### P OCGLUC #### [facility] [address] [address] [address] Uziel Reid PROF 14(COMP METB)on 022 Albumin [Mass/Vol] 1.8 g/dL Critically low 3.5-5.0 [facility] Comment on above: Performed By: #### B MP, PHOS, MG #### [facility] [address] [place] [address] Dr. Uziel Reid Albumin/Globulin [Mass ratio] 0.5 {ratio} Normal [facility] Comment on above: Performed By: #### B MP, PHOS, MG #### [facility] [address] [place] [address] Dr. Uziel Reid ALP [Catalytic activity/Vol] 63 U/L Normal 38-126 [facility] Comment on above: Performed By: #### B MP, PHOS, MG #### [facility] [address] [place] [address] Dr. Uziel Reid ALT [Catalytic activity/Vol] 20 U/L Critically low 21-72 [facility] Comment on above: Performed By: #### B MP, PHOS, MG #### [facility] [address] [place] [address] Dr. Uziel Reid Anion gap [Moles/Vol] 5.5 mmol/L Normal [facility] Comment on above: Performed By: #### B MP, PHOS, MG #### [facility] [address] [place] [address] Dr. Uziel Reid AST [Catalytic activity/Vol] 17 U/L Normal 17-59 [facility] Comment on above: Performed By: #### B MP, PHOS, MG #### [facility] [address] [place] [address] Dr. Uziel Reid Bilirubin [Mass/Vol] 0.4 mg/dL Normal 0.2-1.3 [facility] Comment on above: Performed By: #### B MP, PHOS, MG #### [facility] [address] [place] [address] Dr. Uziel Reid Calcium [Mass/Vol] 7.3 mg/dL Critically low 8.4-10.2 [facility] Comment on above: Performed By: #### B MP, PHOS, MG #### [facility] [address] [place] [address] Dr. Uziel Reid Chloride [Moles/Vol] 107 mmol/L Normal 98-107 [facility] Comment on above: Performed By: #### B MP, PHOS, MG #### [facility] [address] [address] [address] Uziel Reid CO2 [Moles/Vol] 34.7 mmol/L Critically high 22.0-30.0 [facility] Comment on above: Performed By: #### B MP, PHOS, MG #### [facility] [address] [address] [address] Uziel Reid Creatinine [Mass/Vol] 0.64 mg/dL Critically low 0.66-1.25 [facility] Comment on above: Performed By: #### B MP, PHOS, MG #### [facility] [address] [address] [address] Uziel Reid EGFR-AF [place] >60 Normal >=60 [facility] Comment on above: Performed By: #### B MP, PHOS, MG #### [facility] [address] [place] [address] Dr. Uziel Reid EGFR-NON AF [place] >60 Normal >=60 [facility] Comment on above: Performed By: #### B MP, PHOS, MG #### [facility] [address] [address] [address] Uziel Reid Globulin (S) [Mass/Vol] 3.3 g/dL Normal [facility] Comment on above: Performed By: #### B MP, PHOS, MG #### [facility] [address] [place] [address] Dr. Uziel Reid Glucose [Mass/Vol] 187 mg/dL Critically high 74-106 [facility] Comment on above: Performed By: #### B MP, PHOS, MG #### [facility] [address] [address] [address] Uziel Reid Potassium [Moles/Vol] 3.2 mmol/L Critically low 3.4-5.0 [facility] Comment on above: Performed By: #### B MP, PHOS, MG #### [facility] [address] [address] [address] Uziel Reid Protein [Mass/Vol] 5.1 g/dL Critically low 6.1-8.2 [facility] Comment on above: Performed By: #### B MP, PHOS, MG #### [facility] [address] [address] [address] Uziel Reid Sodium [Moles/Vol] 144 mmol/L Normal 137-145 [facility] Comment on above: Performed By: #### B MP, PHOS, MG #### [facility] [address] [address] [address] Uziel Reid Urea nitrogen [Mass/Vol] 20.0 mg/dL Normal 9.0-20.0 [facility] Comment on above: Performed By: #### B MP, PHOS, MG #### [facility] [address] [place] [address] Dr. Uziel Reid Urea nitrogen/Creatinine [Mass ratio] 31.2 mg/mg Normal [facility] Comment on above: Performed By: #### B MP, PHOS, MG #### [facility] [address] [place] [address] Dr. Uziel Reid XR CHEST 1 Von [...] by: EDWARD WARD Date: 2021-08-06 10:15 Normal [facility] POINT OF CARE GLUCOSEon Glucose [Mass/Vol] 90 mg/dL Normal 74-106 [facility] Comment on above: Performed By: #### B MP, PHOS, MG #### [facility] [address] [address] [address] Uziel Reid Glucose [Mass/Vol] 127 mg/dL Critically high 74-106 T [facility] Comment on above: Performed By: #### P OCGLUC #### [facility] [id number] Uziel Reid XR CHEST 1 Von [...] TIFFANI RENTERIA Date: 2021-08-05 21:04 Normal [facility] CBC AUTO DIFFon 08-04-2021 BASO # 0.1 103/ul Normal 0.0-0.1 [facility] Comment on above: Performed By: #### P OCGLUC #### [facility] [address] [address] [address] Uziel Reid Basophils/100 WBC (Bld) 0.5 % Normal 0.2-2.0 [facility] Comment on above: Performed By: #### P OCGLUC #### [facility] [address] [address] [address] Uziel Reid EO # 0.1 103/ul Normal 0.0-0.7 [facility] Comment on above: Performed By: #### P OCGLUC #### [facility] [address] [place] [address] Dr. Uziel Reid Eosinophils/100 WBC (Bld) 0.4 % Critically low 0.9-7.0 [facility] Comment on above: Performed By: #### P OCGLUC #### [facility] [address] [place] [address] Dr. Uziel Reid Erythrocyte distribution width (RBC) [Ratio] 13.4 % Normal 11.0-15.0 [facility] Comment on above: Performed By: #### P OCGLUC #### [facility] [address] [place] [address] Dr. Uziel Reid Hematocrit (Bld) [Volume fraction] 41.1 % Critically low 42.0-54.0 [facility] Comment on above: Performed By: #### P OCGLUC #### [facility] [address] [place] [address] Dr. Uziel Reid Hemoglobin (Bld) [Mass/Vol] 13.1 g/dL Critically low 14.0-18.0 [facility] Comment on above: Performed By: #### P OCGLUC #### [facility] [address] [place] [address] Dr. Uziel Reid IG # 0.20 10e3/ul Critically high 0.00-0.03 [facility] Comment on above: Performed By: #### P OCGLUC #### [facility] [address] [place] [address] Dr. Uziel Reid IG % 1.5 % Critically high 0.0-0.5 [facility] Comment on above: Performed By: #### P OCGLUC #### [facility] [address] [place] [address] Dr. Uziel Reid LYMPH # 0.9 103/ul Critically low 1.2-3.8 [facility] Comment on above: Performed By: #### P OCGLUC #### [facility] [address] [place] [address] Dr. Uziel Reid Lymphocytes/100 WBC (Bld) 6.5 % Critically low 20.5-60.0 [facility] Comment on above: Performed By: #### P OCGLUC #### [facility] [address] [place] [address] Dr. Uziel Reid MANUAL DIFF REQ NO Normal [facility] Comment on above: Performed By: #### P OCGLUC #### [facility] [address] [place] [address] Dr. Uziel Reid MCH (RBC) [Entitic mass] 29.9 pg Normal 25.9-34.0 [facility] Comment on above: Performed By: #### P OCGLUC #### [facility] [address] [place] [address] Dr. Uziel Reid MCHC (RBC) [Mass/Vol] 31.9 g/dL Normal 29.9-35.2 [facility] Comment on above: Performed By: #### P OCGLUC #### [facility] [address] [place] [address] Dr. Uziel Reid MCV (RBC) [Entitic vol] 93.8 fL Normal 80.0-94.0 [facility] Comment on above: Performed By: #### P OCGLUC #### [facility] [address] [place] [address] Dr. Uziel Reid MONO # 1.5 103/ul Critically high 0.3-0.8 [facility] Comment on above: Performed By: #### P OCGLUC #### [facility] [address] [place] [address] Dr. Uziel Reid Monocytes/100 WBC (Bld) 11.2 % Normal 1.7-12.0 [facility] Comment on above: Performed By: #### P OCGLUC #### [facility] [address] [place] [address] Dr. Uziel Reid NEUT # 10.6 103/ul Critically high 1.4-6.5 [facility] Comment on above: Performed By: #### P OCGLUC #### [facility] [address] [place] [address] Dr. Uziel Reid Neutrophils/100 WBC (Bld) 79.9 % Critically high 43.0-75.0 [facility] Comment on above: Performed By: #### P OCGLUC #### [facility] [address] [address] [address] Uziel Reid Platelet mean volume (Bld) [Entitic vol] 10.3 fL Normal 9.5-13.5 [facility] Comment on above: Performed By: #### P OCGLUC #### [facility] [address] [address] [address] Uziel Reid PLT 224 103/ul Normal 150-450 [facility] Comment on above: Performed By: #### P OCGLUC #### [facility] [address] [address] [address] Uziel Reid RBC 4.38 106/ul Critically low 4.70-6.10 [facility] Comment on above: Performed By: #### P OCGLUC #### [facility] [address] [address] [address] Uziel Reid WBC 13.3 103/ul Critically high 4.0-11.0 [facility] Comment on above: Performed By: #### P OCGLUC #### [facility] [address] [address] [address] Uziel Reid POINT OF CARE GLUCOSEon Glucose [Mass/Vol] 142 mg/dL Critically high 74-106 [facility] Comment on above: Performed By: #### C BCMAN #### [facility] [address] [place] [address] Dr. Uziel Reid Glucose [Mass/Vol] 119 mg/dL Critically high 74-106 [facility] Comment on above: Performed By: #### H STROPN #### [facility] [address] [address] [address] Uziel Reid PROF CHEM 8 (BAS METB)on Anion gap [Moles/Vol] 10.9 mmol/L Normal [facility] Comment on above: Performed By: #### P OCGLUC #### [facility] [address] [address] [address] Uziel Reid Calcium [Mass/Vol] 7.6 mg/dL Critically low 8.4-10.2 [facility] Comment on above: Performed By: #### P OCGLUC #### [facility] [address] [address] [address] Uziel Reid Chloride [Moles/Vol] 106 mmol/L Normal 98-107 [facility] Comment on above: Performed By: #### P OCGLUC #### [facility] [address] [address] [address] Uziel Reid CO2 [Moles/Vol] 23.3 mmol/L Normal 22.0-30.0 [facility] Comment on above: Performed By: #### P OCGLUC #### [facility] [address] [address] [address] Uziel Reid Creatinine [Mass/Vol] 0.58 mg/dL Critically low 0.66-1.25 [facility] Comment on above: Performed By: #### P OCGLUC #### [facility] [address] [address] [address] Uziel Reid EGFR-AF [place] >60 Normal >=60 [facility] Comment on above: Performed By: #### P OCGLUC #### [facility] [address] [address] [address] Uziel Reid EGFR-NON AF [place] >60 Normal >=60 [facility] Comment on above: Performed By: #### P OCGLUC #### [facility] [address] [address] [address] Uziel Reid Glucose [Mass/Vol] 128 mg/dL Critically high 74-106 [facility] Comment on above: Performed By: #### P OCGLUC #### [facility] [address] [address] [address] Uziel Reid Potassium [Moles/Vol] 4.2 mmol/L Normal 3.4-5.0 [facility] Comment on above: Performed By: #### P OCGLUC #### [facility] [address] [address] [address] Uziel Reid Sodium [Moles/Vol] 136 mmol/L Critically low 137-145 [facility] Comment on above: Performed By: #### P OCGLUC #### [facility] [address] [address] [address] Uziel Reid Urea nitrogen [Mass/Vol] 32.0 mg/dL Critically high 9.0-20.0 [facility] Comment on above: Performed By: #### P OCGLUC #### [facility] [address] [address] [address] Uziel Reid Urea nitrogen/Creatinine [Mass ratio] 55.2 mg/mg Normal [facility] Comment on above: Performed By: #### P OCGLUC #### [facility] [address] [place] [address] Dr. Uziel Reid XR KUB 1 VIEWon [...] by: ZHANE DUCKWORTH Date: 2021-08-04 15:49 Normal [facility] POINT OF CARE GLUCOSEon Glucose [Mass/Vol] 132 mg/dL Critically high 74-106 [facility] Comment on above: Performed By: #### C BCMAN #### [facility] [address] [place] [address] Dr. Uziel Reid Glucose [Mass/Vol] 122 mg/dL Critically high 74-106 [facility] Comment on above: Performed By: #### B MP, PHOS, MG #### [facility] [address] [place] [address] Dr. Uziel Reid Glucose [Mass/Vol] 124 mg/dL Critically high 74-106 [facility] Comment on above: Performed By: #### B LIA TALBOT MG #### [facility] [address] [address] [address] Uziel Reid POINT OF CARE GLUCOSEon -0 Glucose [Mass/Vol] 127 mg/dL Critically high 74-106 [facility] Comment on above: Performed By: #### B LIA TALBOT MG #### [facility] [address] [place], [place] [address] Dr. Uziel Reid XR KUB 1 VIEWon [...] by: ROBERT BASILIO Date: 2021-08-02 15:21 Normal [facility] XR KUB 1 VIEW KUB; 08/02/2021 [...] by: GERARDO NEELY Date: 2021-08-02 12:31 Normal [facility] CBC W MANUAL DIFFon 08-01-19 22 ATYPICAL LYMPH # Normal [facility] Comment on above: Performed By: #### B MP, PHOS, MG #### [facility] [address] [place] [address] Dr. Uziel Reid ATYPICAL LYMPH % Normal [facility] Comment on above: Performed By: #### B MP, PHOS, MG #### [facility] [address] [address] [address] Uziel Reid BAND # 0.7 103/ul Critically high 0.0-0.3 [facility] Comment on above: Performed By: #### B MP, PHOS, MG #### [facility] [address] [place] [address] Dr. Uziel Reid BAND % 9 % Critically high 0-5 [facility] Comment on above: Performed By: #### B MP, PHOS, MG #### [facility] [address] [place] [address] Dr. Uziel Reid BASOM # 0.00 103/ul Normal 0.00-0.10 [facility] Comment on above: Performed By: #### B MP, PHOS, MG #### [facility] [address] [place] [address] Dr. Uziel Reid BASOM % 0.0 % Critically low 0.2-2.0 [facility] Comment on above: Performed By: #### B MP, PHOS, MG #### [facility] [address] [place] [address] Dr. Uziel Reid BLAST # Normal [facility] Comment on above: Performed By: #### B MP, PHOS, MG #### [facility] [address] [place] [address] Dr. Uziel Reid BLAST % Normal [facility] Comment on above: Performed By: #### B MP, PHOS, MG #### [facility] [address] [place] [address] Dr. Uziel Reid CORRECTED WBC Normal 4.0-11.0 [facility] Comment on above: Performed By: #### B MP, PHOS, MG #### [facility] [address] [address] [address] Uziel Reid EOS # 0.00 103/ul Normal 0.00-0.70 [facility] Comment on above: Performed By: #### B MP, PHOS, MG #### [facility] [address] [address] [address] Uziel Reid EOS% 0.0 % Critically low 0.9-7.0 [facility] Comment on above: Performed By: #### B MP, PHOS, MG #### [facility] [address] [address] [address] Uziel Reid HCT 38.1 % Critically low 42.0-54.0 [facility] Comment on above: Performed By: #### B MP, PHOS, MG #### [facility] [address] [place] [address] Dr. Uziel Reid HGB 12.2 g/dl Critically low 14.0-18.0 [facility] Comment on above: Performed By: #### B MP, PHOS, MG #### [facility] [address] [address] [address] Uziel Reid LYMPHM # 0.66 103/ul Critically low 1.20-3.80 [facility] Comment on above: Performed By: #### B MP, PHOS, MG #### [facility] [address] [address] [address] Uziel Reid LYMPHM% 9.0 % Critically low 20.5-60.0 [facility] Comment on above: Performed By: #### B MP, PHOS, MG #### [facility] [address] [address] [address] Uziel Reid MCH 29.8 pg Normal 25.9-34.0 [facility] Comment on above: Performed By: #### B MP, PHOS, MG #### [facility] [address] [address] [address] Uziel Reid MCHC 32.0 g/dl Normal 29.9-35.2 [facility] Comment on above: Performed By: #### B MP, PHOS, MG #### [facility] [address] [address] [address] Uziel Reid MCV 92.9 fL Normal 80.0-94.0 [facility] Comment on above: Performed By: #### B MP, PHOS, MG #### [facility] [address] [place] [address] Dr. Uziel Reid METAMYELOCYTE # Normal [facility] Comment on above: Performed By: #### B MP, PHOS, MG #### [facility] [address] [address] [address] Uziel Reid METAMYELOCYTE % Normal [facility] Comment on above: Performed By: #### B MP, PHOS, MG #### [facility] [address] [place] [address] Dr. Uziel Reid MONOM# 1.02 103/ul Critically high 0.30-0.80 [facility] Comment on above: Performed By: #### B MP, PHOS, MG #### [facility] [address] [place] [address] Dr. Uziel Reid MONOM% 14.0 % Critically high 1.7-12.0 [facility] Comment on above: Performed By: #### B MP, PHOS, MG #### [facility] [address] [place] [address] Dr. Uziel Reid MPV 9.9 fL Normal 9.5-13.5 [facility] Comment on above: Performed By: #### B MP, PHOS, MG #### [facility] [address] [place] [address] Dr. Uziel Reid MYELOCYTE # Normal [facility] Comment on above: Performed By: #### B MP, PHOS, MG #### [facility] [address] [place] [address] Dr. Uziel Reid MYELOCYTE % Normal [facility] Comment on above: Performed By: #### B MP, PHOS, MG #### [facility] [address] [place] [address] Dr. Uziel Reid NRBC Normal [facility] Comment on above: Performed By: #### B MP, PHOS, MG #### [facility] [address] [place] [address] Dr. Uziel Reid PLT 237 103/ul Normal 150-450 [facility] Comment on above: Performed By: #### B MP, PHOS, MG #### [facility] [address] [place] [address] Dr. Uziel Reid RBC 4.10 106/ul Critically low 4.70-6.10 [facility] Comment on above: Performed By: #### B MP, PHOS, MG #### [facility] [address] [place] [address] Dr. Uziel Reid RDW 13.5 % Normal 11.0-15.0 [facility] Comment on above: Performed By: #### B MP, PHOS, MG #### [facility] [address] [place] [address] Dr. Uziel Reid SEG # 4.96 103/ul Normal 1.40-6.50 [facility] Comment on above: Performed By: #### B MP, PHOS, MG #### [facility] [address] [place] [address] Dr. Uziel Reid SEG % 68.0 % Normal 43.0-75.0 [facility] Comment on above: Performed By: #### B MP, PHOS, MG #### [facility] [address] [place] [address] Dr. Uziel Reid WBC 7.3 103/ul Normal 4.0-11.0 [facility] Comment on above: Performed By: #### B MP, PHOS, MG #### [facility] [address] [place] [address] Dr. Uziel Reid POINT OF CARE GLUCOSEon Glucose [Mass/Vol] 158 mg/dL Critically high 74-106 T [facility] Comment on above: Performed By: #### B MP, PHOS, MG #### [facility] [address] [place] [address] Dr. Uziel Reid PROF 14(COMP METB)on 022 Albumin [Mass/Vol] 2.4 g/dL Critically low 3.5-5.0 Th [facility] Comment on above: Performed By: #### C FERDINAND #### [facility] [address] [place] [address] Dr. Uziel Reid Albumin/Globulin [Mass ratio] 0.5 {ratio} Normal [facility] Comment on above: Performed By: #### C FERDINAND #### [facility] [address] [place] [address] Dr. Uziel Reid ALP [Catalytic activity/Vol] 84 U/L Normal 38-126 [facility] Comment on above: Performed By: #### C FERDINAND #### [facility] [address] [place] [address] Dr. Uziel Reid ALT [Catalytic activity/Vol] 26 U/L Normal 21-72 [facility] Comment on above: Performed By: #### C FERDINAND #### [facility] [address] [place] [address] Dr. Uziel Reid Anion gap [Moles/Vol] 9.8 mmol/L Normal [facility] Comment on above: Performed By: #### C FERDINAND #### [facility] [address] [place] [address] Dr. Uziel Reid AST [Catalytic activity/Vol] 17 U/L Normal 17-59 [facility] Comment on above: Performed By: #### C FERDINAND #### [facility] [address] [place] [address] Dr. Uziel Reid Bilirubin [Mass/Vol] 0.9 mg/dL Normal 0.2-1.3 [facility] Comment on above: Performed By: #### C FERDINAND #### [facility] [address] [place] [address] Dr. zUiel Reid Calcium [Mass/Vol] 8.9 mg/dL Normal 8.4-10.2 [facility] Comment on above: Performed By: #### C FERDINAND #### [facility] [address] [place] [address] Dr. Uziel Reid Chloride [Moles/Vol] 94 mmol/L Critically low 98-107 [facility] Comment on above: Performed By: #### C FERDINAND #### [facility] [address] [address] [address] Uziel Reid CO2 [Moles/Vol] 30.9 mmol/L Critically high 22.0-30.0 [facility] Comment on above: Performed By: #### C FERDINAND #### [facility] [address] [place] [address] Dr. Uziel Reid Creatinine [Mass/Vol] 1.21 mg/dL Normal 0.66-1.25 [facility] Comment on above: Performed By: #### C FERDINAND #### [facility] [address] [place] [address] Dr. Uziel Reid EGFR-AF [place] >60 Normal >=60 [facility] Comment on above: Performed By: #### C FERDINAND #### [facility] [address] [place] [address] Dr. Uziel Reid EGFR-NON AF [place] 57 mL/min/1.73m2 Critically low >=60 [facility] Comment on above: Performed By: #### C FERDINAND #### [facility] [address] [place] [address] Dr. Uziel Reid Globulin (S) [Mass/Vol] 4.5 g/dL Normal [facility] Comment on above: Performed By: #### C FERDINAND #### [facility] [address] [place] [address] Dr. Uziel Reid Glucose [Mass/Vol] 166 mg/dL Critically high 74-106 [facility] Comment on above: Performed By: #### C FERDINAND #### [facility] [address] [place] [address] Dr. Uziel Reid Potassium [Moles/Vol] 3.7 mmol/L Normal 3.4-5.0 [facility] Comment on above: Performed By: #### C FERDINAND #### [facility] [address] [place] [address] Dr. Uziel Reid Protein [Mass/Vol] 6.9 g/dL Normal 6.1-8.2 [facility] Comment on above: Performed By: #### C FERDINAND #### [facility] [address] [address] [address] Uziel Reid Sodium [Moles/Vol] 131 mmol/L Critically low 137-145 [facility] Comment on above: Performed By: #### C FERDINAND #### [facility] [address] [address] [address] Uziel Reid Urea nitrogen [Mass/Vol] 72.0 mg/dL Critically high 9.0-20.0 [facility] Comment on above: Performed By: #### C FERDINAND #### [facility] [address] [address] [address] Uziel Reid Urea nitrogen/Creatinine [Mass ratio] 59.5 mg/mg Normal [facility] Comment on above: Performed By: #### C FERDINAND #### [facility] [address] [address] [address] Uziel Reid XR KUB 1 VIEWon [...] by: ROBERT BASILIO Date: 2021-08-01 20:28 Normal [facility] XR KUB 1 VIEW EXAMINATION: XR KUB [...] ROBERT BASILIO Date: 2021-08-01 13:26 Normal [facility] XR SMALL BOWEL FOLLOW THOUGH on 08-01-2021 XR SMALL BOWEL FOLLOW THOUGH EXAMINATION: XR SMALL BOWEL FOLLOW THOUGH HISTORY: Swollen abdomen COMPARISON: No relevant comparison available. FLUOROSCOPY TIME: Fluoro time - none. TECHNIQUE: Small bowel series was performed in the usual manner. No presales senior specialist abdominal radiograph was performed. Standard level [...] ROBERT BASILIO Date: 2021-08-01 17:36 Normal [facility] POINT OF CARE GLUCOSEon 12-3 Glucose [Mass/Vol] 178 mg/dL Critically high 74-106 [facility] Comment on above: Performed By: #### C BCMAN #### [facility] [address] [place] [address] Dr. Uziel Reid Glucose [Mass/Vol] 146 mg/dL Critically high 74-106 [facility] Comment on above: Performed By: #### P OCGLUC #### [facility] [address] [place] [address] Dr. Uziel Reid BNPon 07-30-2021 Natriuretic peptide B (Bld) [Mass/Vol] 800.0 pg/mL Normal <=1,800.0 [facility] Comment on above: Performed By: #### B LIA TALBOT, MG #### [facility] [address] [place] [address] Dr. Uziel Reid CBC AUTO DIFFon 07-30-2021 BASO # 0.0 103/ul Normal 0.0-0.1 [facility] Comment on above: Performed By: #### B MP PHOS, MG #### [facility] [address] [place] [address] Dr. Uziel Reid Basophils/100 WBC (Bld) 0.1 % Critically low 0.2-2.0 [facility] Comment on above: Performed By: #### B MP, PHOS, MG #### [facility] [address] [place] [address] Dr. Uziel Reid EO # 0.0 103/ul Normal 0.0-0.7 [facility] Comment on above: Performed By: #### B MP, PHOS, MG #### [facility] [address] [place] [address] Dr. Uziel Reid Eosinophils/100 WBC (Bld) 0.1 % Critically low 0.9-7.0 [facility] Comment on above: Performed By: #### B MP, PHOS, MG #### [facility] [address] [place] [address] Dr. Uziel Reid Erythrocyte distribution width (RBC) [Ratio] 13.8 % Normal 11.0-15.0 [facility] Comment on above: Performed By: #### B MP, PHOS, MG #### [facility] [address] [place] [address] Dr. Uziel Reid Hematocrit (Bld) [Volume fraction] 35.1 % Critically low 42.0-54.0 [facility] Comment on above: Performed By: #### B MP, PHOS, MG #### [facility] [address] [place] [address] Dr. Uziel Reid Hemoglobin (Bld) [Mass/Vol] 10.8 g/dL Critically low 14.0-18.0 [facility] Comment on above: Performed By: #### B MP, PHOS, MG #### [facility] [address] [place] [address] Dr. Uziel Reid IG # 0.15 10e3/ul Critically high 0.00-0.03 [facility] Comment on above: Performed By: #### B MP, PHOS, MG #### [facility] [address] [place], [place] [id number] Dr. Uziel Reid IG % 0.9 % Critically high 0.0-0.5 [facility] Comment on above: Performed By: #### B MP, PHOS, MG #### [facility] [address] [place] [address] Dr. Uziel Reid LYMPH # 0.8 103/ul Critically low 1.2-3.8 [facility] Comment on above: Performed By: #### B MP, PHOS, MG #### [facility] [address] [place] [address] Dr. Uziel Reid Lymphocytes/100 WBC (Bld) 5.2 % Critically low 20.5-60.0 [facility] Comment on above: Performed By: #### B MP, PHOS, MG #### [facility] [address] [place] [address] Dr. Uziel Reid MANUAL DIFF REQ NO Normal [facility] Comment on above: Performed By: #### B MP, PHOS, MG #### [facility] [address] [place] [address] Dr. Uziel Reid MCH (RBC) [Entitic mass] 30.1 pg Normal 25.9-34.0 [facility] Comment on above: Performed By: #### B MP, PHOS, MG #### [facility] [address] [place] [address] Dr. Uziel Reid MCHC (RBC) [Mass/Vol] 30.8 g/dL Normal 29.9-35.2 [facility] Comment on above: Performed By: #### B MP, PHOS, MG #### [facility] [address] [place] [address] Dr. Uziel Reid MCV (RBC) [Entitic vol] 97.8 fL Critically high 80.0-94.0 [facility] Comment on above: Performed By: #### B MP, PHOS, MG #### [facility] [address] [place] [address] Dr. Uziel Reid MONO # 1.2 103/ul Critically high 0.3-0.8 [facility] Comment on above: Performed By: #### B MP, PHOS, MG #### [facility] [address] [address] [address] Uziel Reid Monocytes/100 WBC (Bld) 7.5 % Normal 1.7-12.0 [facility] Comment on above: Performed By: #### B MP, PHOS, MG #### [facility] [address] [place] [address] Dr. Uziel Reid NEUT # 14.0 103/ul Critically high 1.4-6.5 [facility] Comment on above: Performed By: #### B MP, PHOS, MG #### [facility] [address] [place] [address] Dr. Uziel Reid Neutrophils/100 WBC (Bld) 86.2 % Critically high 43.0-75.0 [facility] Comment on above: Performed By: #### B MP, PHOS, MG #### [facility] [address] [place] [address] Dr. Uziel Reid Platelet mean volume (Bld) [Entitic vol] 10.7 fL Normal 9.5-13.5 [facility] Comment on above: Performed By: #### B MP, PHOS, MG #### [facility] [address] [place] [address] Dr. Uziel Reid PLT 165 103/ul Normal 150-450 [facility] Comment on above: Performed By: #### B MP, PHOS, MG #### [facility] [address] [place] [address] Dr. Uziel Reid RBC 3.59 106/ul Critically low 4.70-6.10 [facility] Comment on above: Performed By: #### B MP, PHOS, MG #### [facility] [address] [place] [address] Dr. Uziel Reid WBC 16.2 103/ul Critically high 4.0-11.0 [facility] Comment on above: Performed By: #### B MP, PHOS, MG #### [facility] [address] [place] [address] Dr. Uziel Reid PROF CHEM 8 (BAS METB)on Anion gap [Moles/Vol] 8.9 mmol/L Normal [facility] Comment on above: Performed By: #### B MP, PHOS, MG #### [facility] [address] [address] [address] Uziel Reid Calcium [Mass/Vol] 7.4 mg/dL Critically low 8.4-10.2 [facility] Comment on above: Performed By: #### B MP, PHOS, MG #### [facility] [address] [address] [address] Uziel Reid Chloride [Moles/Vol] 96 mmol/L Critically low 98-107 [facility] Comment on above: Performed By: #### B MP, PHOS, MG #### [facility] [address] [place] [address] Dr. Uziel Reid CO2 [Moles/Vol] 30.0 mmol/L Normal 22.0-30.0 [facility] Comment on above: Performed By: #### B MP, PHOS, MG #### [facility] [address] [address] [address] Uziel Reid Creatinine [Mass/Vol] 1.12 mg/dL Normal 0.66-1.25 [facility] Comment on above: Performed By: #### B MP, PHOS, MG #### [facility] [address] [place] [address] Dr. Uziel Reid EGFR-AF [place] >60 Normal >=60 [facility] Comment on above: Performed By: #### B MP, PHOS, MG #### [facility] [address] [place] [address] Dr. Uziel Reid EGFR-NON AF [place] >60 Normal >=60 [facility] Comment on above: Performed By: #### B MP, PHOS, MG #### [facility] [address] [place] [address] Dr. Uziel Reid Glucose [Mass/Vol] 125 mg/dL Critically high 74-106 [facility] Comment on above: Performed By: #### B MP, PHOS, MG #### [facility] [address] [address] [address] Uziel Reid Potassium [Moles/Vol] 3.9 mmol/L Normal 3.4-5.0 [facility] Comment on above: Performed By: #### B MP, PHOS, MG #### [facility] [address] [place] [address] Dr. Uziel Reid Sodium [Moles/Vol] 131 mmol/L Critically low 137-145 [facility] Comment on above: Performed By: #### B MP, PHOS, MG #### [facility] [address] [place] [address] Dr. Uziel Reid Urea nitrogen [Mass/Vol] 37.0 mg/dL Critically high 9.0-20.0 [facility] Comment on above: Performed By: #### B MP, PHOS, MG #### [facility] [address] [place] [address] Dr. Uziel Reid Urea nitrogen/Creatinine [Mass ratio] 33.0 mg/mg Normal [facility] Comment on above: Performed By: #### B MP, PHOS, MG #### [facility] [address] [place] [address] Dr. Uziel Reid XR ABD FLAT_UPon 07-30-2021 [...] by: ZHANE DUCKWORTH Date: 2021-07-30 09:08 Normal [facility] XR CHEST 2 Von 07-30-2021 XR CHEST [...] by: ZHANE DUCKWORTH Date: 2021-07-30 09:05 Normal [facility] POINT OF CARE GLUCOSEon 07-02 Glucose [Mass/Vol] 144 mg/dL Critically high 74-106 [facility] Comment on above: Performed By: #### C BCMAN #### [facility] [address] [place] [address] Dr. Uziel Reid Glucose [Mass/Vol] 147 mg/dL Critically high 74-106 [facility] Comment on above: Performed By: #### B MP, PHOS, MG #### [facility] [address] [place] [address] Dr. Uziel Reid AMYLASEon 07-28-2021 AMYL <30 Critically low 31-110 [facility] Comment on above: Performed By: #### H STROPN #### [facility] [address] [place] [address] Dr. Uziel Reid CBC AUTO DIFFon 07-28-2021 BASO # 0.1 103/ul Normal 0.0-0.1 [facility] Comment on above: Performed By: #### B MP, PHOS, MG #### [facility] [address] [place] [address] Dr. Uziel Reid Basophils/100 WBC (Bld) 0.6 % Normal 0.2-2.0 [facility] Comment on above: Performed By: #### B MP, PHOS, MG #### [facility] [address] [place] [address] Dr. Uziel Reid EO # 0.2 103/ul Normal 0.0-0.7 [facility] Comment on above: Performed By: #### B MP, PHOS, MG #### [facility] [address] [place] [address] Dr. Uziel Reid Eosinophils/100 WBC (Bld) 1.8 % Normal 0.9-7.0 [facility] Comment on above: Performed By: #### B MP, PHOS, MG #### [facility] [address] [place] [address] Dr. Uziel Reid Erythrocyte distribution width (RBC) [Ratio] 13.0 % Normal 11.0-15.0 [facility] Comment on above: Performed By: #### B MP, PHOS, MG #### [facility] [address] [place] [address] Dr. Uziel Reid Hematocrit (Bld) [Volume fraction] 38.9 % Critically low 42.0-54.0 [facility] Comment on above: Performed By: #### B MP, PHOS, MG #### [facility] [address] [place] [address] Dr. Uziel Reid Hemoglobin (Bld) [Mass/Vol] 12.6 g/dL Critically low 14.0-18.0 [facility] Comment on above: Performed By: #### B MP, PHOS, MG #### [facility] [address] [place] [address] Dr. Uziel Reid IG # 0.05 10e3/ul Critically high 0.00-0.03 [facility] Comment on above: Performed By: #### B MP, PHOS, MG #### [facility] [address] [place] [address] Dr. Uziel Reid IG % 0.4 % Normal 0.0-0.5 [facility] Comment on above: Performed By: #### B MP, PHOS, MG #### [facility] [address] [place] [address] Dr. Uziel Reid LYMPH # 1.2 103/ul Normal 1.2-3.8 [facility] Comment on above: Performed By: #### B MP, PHOS, MG #### [facility] [address] [place] [address] Dr. Uziel Reid Lymphocytes/100 WBC (Bld) 10.0 % Critically low 20.5-60.0 [facility] Comment on above: Performed By: #### B MP, PHOS, MG #### [facility] [address] [address] [address] Uziel Reid MANUAL DIFF REQ NO Normal [facility] Comment on above: Performed By: #### B MP, PHOS, MG #### [facility] [address] [place] [address] Dr. Uziel Reid MCH (RBC) [Entitic mass] 30.3 pg Normal 25.9-34.0 [facility] Comment on above: Performed By: #### B MP, PHOS, MG #### [facility] [address] [place] [address] Dr. Uziel Reid MCHC (RBC) [Mass/Vol] 32.4 g/dL Normal 29.9-35.2 [facility] Comment on above: Performed By: #### B MP, PHOS, MG #### [facility] [address] [place] [address] Dr. Uziel Reid MCV (RBC) [Entitic vol] 93.5 fL Normal 80.0-94.0 [facility] Comment on above: Performed By: #### B MP, PHOS, MG #### [facility] [address] [place] [address] Dr. Uziel Reid MONO # 1.0 103/ul Critically high 0.3-0.8 [facility] Comment on above: Performed By: #### B MP, PHOS, MG #### [facility] [address] [place] [address] Dr. Uziel Reid Monocytes/100 WBC (Bld) 8.6 % Normal 1.7-12.0 [facility] Comment on above: Performed By: #### B MP, PHOS, MG #### [facility] [address] [place] [address] Dr. Uziel Reid NEUT # 9.2 103/ul Critically high 1.4-6.5 [facility] Comment on above: Performed By: #### B MP, PHOS, MG #### [facility] [address] [address] [address] Uziel Reid Neutrophils/100 WBC (Bld) 78.6 % Critically high 43.0-75.0 [facility] Comment on above: Performed By: #### B MP, PHOS, MG #### [facility] [address] [place] [address] Dr. Uziel Reid Platelet mean volume (Bld) [Entitic vol] 10.9 fL Normal 9.5-13.5 [facility] Comment on above: Performed By: #### B MP, PHOS, MG #### [facility] [address] [address] [address] Uziel Reid PLT 159 103/ul Normal 150-450 [facility] Comment on above: Performed By: #### B MP, PHOS, MG #### [facility] [address] [place] [address] Dr. Uziel Reid RBC 4.16 106/ul Critically low 4.70-6.10 [facility] Comment on above: Performed By: #### B MP, PHOS, MG #### [facility] [address] [place] [address] Dr. Uziel Reid WBC 11.8 103/ul Critically high 4.0-11.0 [facility] Comment on above: Performed By: #### B MP, PHOS, MG #### [facility] [address] [place] [address] ABD/PELVIS WO CONon [...] distal abdominal aorta Electronically authenticated by: ZHANE DUCKOWRTH Date: 2021-07-28 07:18 Normal [facility] CULTURE BLOODon 07-28-2021 Microscopic examination of blood, culture Culture Observations: NO GROWTH AT 5 DAYS. Normal [facility] Comment on above: Performed By: #### H STROPN #### [facility] [address] [place] [address] Dr. Uziel Reid [facility] 07-02 SARS-CoV-2 (COVID-19) RNA ALFONSO+probe Ql (Unsp spec) Not detected Normal NOT DETECTED [facility] Comment on above: Result Comment: This test is not yet approved or cleared by the [place] FDA. When there are no FDA-approved or cleared tests available, and other criteria are met, FDA can make tests available under an emergency access mechanism called an Emergency Use Authorization (EUA). The EUA for this test is supported by the District Fire Chief of Health and Human Service's (HHS's) declaration [...] consistent with SARS-CoV-2. Performed By: #### C FERDINAND #### [facility] [address] [place] [address] Dr. Uziel Reid LACTATE/LACTIC ACIDon 2020 Lactate [Moles/Vol] 1.2 mmol/L Normal 0.7-2.0 [facility] Comment on above: Performed By: #### B MP, PHOS, MG #### [facility] [address] [place] [address] Dr. Uziel Reid LIPASEon 07-28-2021 Lipase [Catalytic activity/Vol] 32.0 U/L Normal 23.0-300.0 [facility] Comment on above: Performed By: #### H PATRICA #### [facility] [address] [place] [address] Dr. Uziel Reid PROF 14(COMP METB)on 021 Albumin [Mass/Vol] 3.1 g/dL Critically low 3.5-5.0 [facility] Comment on above: Performed By: #### Jesse STREETER #### [facility] [address] [place] [address] Dr. Uziel Reid Albumin/Globulin [Mass ratio] 0.8 {ratio} Normal [facility] Comment on above: Performed By: #### Jesse STREETER #### [facility] [address] [place] [address] Dr. Uziel Reid ALP [Catalytic activity/Vol] 116 U/L Normal 38-126 [facility] Comment on above: Performed By: #### Jesse STREETER #### [facility] [address] [place] [address] Dr. Uziel Reid ALT [Catalytic activity/Vol] 36 U/L Normal 21-72 [facility] Comment on above: Performed By: #### C FERDINAND #### [facility] [address] [place] [address] Dr. Uziel Reid Anion gap [Moles/Vol] 11.3 mmol/L Normal [facility] Comment on above: Performed By: #### C BCMAN #### [facility] [address] [address] [address] Uziel Reid AST [Catalytic activity/Vol] 25 U/L Normal 17-59 [facility] Comment on above: Performed By: #### C BCMAN #### [facility] [address] [address] [address] Uziel Reid Bilirubin [Mass/Vol] 0.9 mg/dL Normal 0.2-1.3 [facility] Comment on above: Performed By: #### C BCMAN #### [facility] [address] [address] [address] Uziel Reid Calcium [Mass/Vol] 8.4 mg/dL Normal 8.4-10.2 [facility] Comment on above: Performed By: #### C BCMAN #### [facility] [address] [address] [address] Uziel Reid Chloride [Moles/Vol] 97 mmol/L Critically low 98-107 [facility] Comment on above: Performed By: #### C BCSARIKA #### [facility] [address] [address] [address] Uziel Reid CO2 [Moles/Vol] 29.4 mmol/L Normal 22.0-30.0 [facility] Comment on above: Performed By: #### C BCSARIKA #### [facility] [address] [address] [address] Uziel Reid Creatinine [Mass/Vol] 0.86 mg/dL Normal 0.66-1.25 [facility] Comment on above: Performed By: #### C BCMAN #### [facility] [address] [address] [address] Uziel Reid EGFR-AF [place] >60 Normal >=60 [facility] Comment on above: Performed By: #### C BCMAN #### [facility] [address] [address] [address] Uziel Reid EGFR-NON AF [place] >60 Normal >=60 [facility] Comment on above: Performed By: #### C BCMAN #### [facility] [address] [address] [address] Uziel Reid Globulin (S) [Mass/Vol] 4.0 g/dL Normal [facility] Comment on above: Performed By: #### C BCMAN #### [facility] [address] [address] [address] Uziel Reid Glucose [Mass/Vol] 181 mg/dL Critically high 74-106 [facility] Comment on above: Performed By: #### C BCMAN #### [facility] [address] [address] [address] Uziel Reid Potassium [Moles/Vol] 3.7 mmol/L Normal 3.4-5.0 [facility] Comment on above: Performed By: #### C FERDINAND #### [facility] [address] [address] [address] Uziel Reid Protein [Mass/Vol] 7.1 g/dL Normal 6.1-8.2 [facility] Comment on above: Performed By: #### C BCSARIKA #### [facility] [address] [address] [address] Uziel Reid Sodium [Moles/Vol] 134 mmol/L Critically low 137-145 [facility] Comment on above: Performed By: #### C BCSARIKA #### [facility] [address] [place] [address] Dr. Uziel Reid Urea nitrogen [Mass/Vol] 18.0 mg/dL Normal 9.0-20.0 [facility] Comment on above: Performed By: #### C BCSARIKA #### [facility] [address] [address] [address] Uziel Reid Urea nitrogen/Creatinine [Mass ratio] 20.9 mg/mg Normal [facility] Comment on above: Performed By: #### C FERDINAND #### [facility] [address] [place] [address] Dr. Uziel Reid XR CHEST 1 Von [...] by: SUPA STONE Date: 2021-07-28 06:45 Normal [facility] GLYCOHEMOGLOBIN A1Con 2020 ADA RECOMMENDATION ADA THERAPEUTIC TARGET 6.0 - 7.0 ACTION SUGGESTED > 7.0 Normal [facility] Comment on above: Performed By: #### B MP, PHOS, MG #### [facility] [address] [address] [address] Uziel Reid Glucose [Mass/Vol] 137 mg/dL Normal [facility] Comment on above: Performed By: #### B MP, PHOS, MG #### [facility] [address] [address] [address] Uziel Reid HbA1c (Bld) [Mass fraction] 6.4 % Critically high <=6.0 [facility] Comment on above: Performed By: #### B MP, PHOS, MG #### [facility] [address] [place] [address] Dr. Uziel Reid Vital Signs Date Time Vital Sign Value Performing Clinician Facility 05-14-2024 14:02-0400 Body height 181.6 cm Annette Whitfield [employer] Work Phone: [facility] 05-14-2024 14:02-0400 Body mass index (BMI) [Ratio] 25.47 kg/m2 Annette Whitfield [employer] Work Phone: [facility] 05-14-2024 14:02-0400 Body temperature 98.1 [degF] Annette Whitfield [employer] Work Phone: [facility] 05-14-2024 14:02-0400 Body weight 84.01 kg Annette Whitfield [employer] Work Phone: [facility] 05-14-2024 14:02-0400 Diastolic blood pressure 62 mm[Hg] Annette Darrionhholz [employer] Work Phone: [facility] 05-14-2024 14:02-0400 Heart rate 62 /min Annette Aichholz [employer] Work Phone: [facility] 05-14-2024 14:02-0400 Respiratory rate 18 /min Annette Aichholz [employer] Work Phone: [facility] 05-14-2024 14:02-0400 SaO2% (BldA) [Mass fraction] 94 % Annette Codyholz AUTO CAMP ATTENDANT Work Phone: [facility] 05-14-2024 14:02-0400 Systolic blood pressure 126 mm[Hg] Annette Aichholz AUTO CAMP ATTENDANT Work Phone: [facility] 09-12-2023 13:34-0500 Body height 181.6 cm Annette Darrionhholz AUTO CAMP ATTENDANT Work Phone: [facility] 09-12-2023 13:34-0500 Body mass index (BMI) [Ratio] 25.44 kg/m2 Annette Darrionhholz AUTO CAMP ATTENDANT Work Phone: [facility] 09-12-2023 13:34-0500 Body temperature 96.6 [degF] Annette Darrionhholz AUTO CAMP ATTENDANT Work Phone: [facility] 09-12-2023 13:34-0500 Body weight 83.92 kg Annette Darrionhholz AUTO CAMP ATTENDANT Work Phone: [facility] 09-12-2023 13:34-0500 Diastolic blood pressure 76 mm[Hg] Annette Darrionhholz AUTO CAMP ATTENDANT Work Phone: [facility] 09-12-2023 13:34-0500 Heart rate 83 /min Annette Aichholz [employer]O CAMP ATTENDANT Work Phone: [facility] 09-12-2023 13:34-0500 Respiratory rate 18 /min Annette Aichholz [employer]O CAMP ATTENDANT Work Phone: [facility] 09-12-2023 13:34-0500 SaO2% (BldA) [Mass fraction] 94 % Annette Whitfield [employer]O CAMP ATTENDANT Work Phone: [facility] 09-12-2023 13:34-0500 Systolic blood pressure 138 mm[Hg] Annette Whitfield AUTO CAMP ATTENDANT Work Phone: [facility] 08-27-2022 13:35-0500 Body height 180.34 cm Keira Haile Other [employer] Other 08-27-2022 13:35-0500 Body mass index (BMI) [Ratio] 27 kg/m2 Keira Mic Other [employer] Other 08-27-2022 13:35-0500 Body temperature 97.9 [degF] Keira Mic Other [employer] Other 08-27-2022 13:35-0500 Body weight 87.82 kg Keira Mic Other [employer] Other 08-27-2022 13:35-0500 Diastolic blood pressure 77 mm[Hg] Keira Mic Other [employer] Other 08-27-2022 13:35-0500 Respiratory rate 18 /min Keira Mic Other [employer] Other 08-27-2022 13:35-0500 SaO2% (BldA) [Mass fraction] 97 % Keira Mic Other [employer] Other 08-27-2022 13:35-0500 Systolic blood pressure 156 mm[Hg] Keira Mic Other [employer] Other 12-08-2021 09:55-0400 Body height 172.72 cm Ailyn J Ayad Work Phone: [facility] Work Phone: 12-08-2021 09:55-0400 Body mass index (BMI) [Ratio] 29.19 kg/m2 Ailyn J Ayad Work Phone: [facility] Work Phone: 12-08-2021 09:55-0400 Body surface area Derived from formula 2.01 m2 Ailyn Kang Baez Work Phone: [facility] Work Phone: 12-08-2021 09:55-0400 Body temperature 97.3 [degF] Ailyn Kang Baez Work Phone: [facility] Work Phone: 12-08-2021 09:55-0400 Body weight 87.09 kg Ailyn J Ayad Work Phone: [facility] Work Phone: 12-08-2021 09:55-0400 Diastolic blood pressure 69 mm[Hg] Ailyn Kang Baez Work Phone: [facility] Work Phone: 12-08-2021 09:55-0400 Heart rate 63 /min Ailyn Baez Work Phone: [facility] Work Phone: 12-08-2021 09:55-0400 Respiratory rate 16 /min Ailyn Baez Work Phone: [facility] Work Phone: 12-08-2021 09:55-0400 SaO2% (BldA) [Mass fraction] 93 % Ailyn Baez Work Phone: [facility] Work Phone: 12-08-2021 09:55-0400 Systolic blood pressure 133 mm[Hg] Ailyn Baez Work Phone: [facility] 170 Work Phone: 10-14-2021 11:17-0400 Body height 172.72 cm [facility]ilyn Baez [facility] Phone[facility] Work Phone: 10-14-2021 11:17-0400 Body mass index (BMI) [Ratio] 29.04 kg/m2 Ailyn Baez Work Phone: [facility] Work Phone: 10-14-2021 11:17-0400 Body surface area Derived from formula 2 m2 Ailyn Baez Work Phone: [facility] Work Phone: 10-14-2021 11:17-0400 Body temperature 97.2 [degF] Ailyn Baez Work Phone: [facility] Work Phone: 10-14-2021 11:17-0400 Body weight 86.64 kg Ailyn Baez Work Phone: [facility] Work Phone: 10-14-2021 11:17-0400 Diastolic blood pressure 70 mm[Hg] Ailyn Baez Work Phone: [facility] [address] Work Phone: 10-14-2021 11:17-0400 Heart rate 73 /min Ailyn Baez Work Phone: [facility] 170 Work Phone: 10-14-2021 11:17-0400 Respiratory rate 16 /min Ailyn J Ayad Work Phone: [facility] 170 Work Phone: 10-14-2021 11:17-0400 SaO2% (BldA) [Mass fraction] 92 % Ailyn J Ayad Work Phone: [facility] 170 Work Phone: 10-14-2021 11:17-0400 Systolic blood pressure 120 mm[Hg] Ailyn Baez Work Phone: [facility] 170 Work Phone: 10-07-2021 13:28-0500 Body height 172.72 cm Ailyn Baez Work Phone: [facility] Work Phone: 10-07-2021 13:28-0500 Body mass index (BMI) [Ratio] 29.21 kg/m2 Ailyn Baez Work Phone: [facility] Work Phone: 10-07-2021 13:28-0500 Body surface area Derived from formula 2.01 m2 Ailyn Baez Work Phone: [facility] Work Phone: 10-07-2021 13:28-0500 Body temperature 95.7 [degF] Ailyn Baez Work Phone: [facility] Work Phone: 10-07-2021 13:28-0500 Body weight 87.15 kg Ailyn Baez Work Phone: [facility] Work Phone: 10-07-2021 13:28-0500 Diastolic blood pressure 78 mm[Hg] Ailyn Baez Work Phone: [facility] Work Phone: 10-07-2021 13:28-0500 Heart rate 67 /min Ailyn Baez Work Phone: [facility] Work Phone: 10-07-2021 13:28-0500 Respiratory rate 16 /min Ailyn Baez Work Phone: [facility] Work Phone: 10-07-2021 13:28-0500 SaO2% (BldA) [Mass fraction] 94 % Ailyn Baez Work Phone: [facility] Work Phone: 10-07-2021 13:28-0500 Systolic blood pressure 138 mm[Hg] Ailyn Baez Work Phone: [facility] Work Phone: 09-09-2021 11:34-0500 Body height 172.72 cm Ailyn Baez Work Phone: [facility] Work Phone: 09-09-2021 11:34-0500 Body mass index (BMI) [Ratio] 30.71 kg/m2 Ailyn Baez Work Phone: [facility] Work Phone: 09-09-2021 11:34-0500 Body surface area Derived from formula 2.05 m2 Ailyn Baez Work Phone: [facility] Work Phone: 09-09-2021 11:34-0500 Body temperature 97.5 [degF] Ailyn Baez Work Phone: [facility] Work Phone: 09-09-2021 11:34-0500 Body weight 91.63 kg Ailyn Kang Baez Work Phone: [facility] Work Phone: 09-09-2021 11:34-0500 Diastolic blood pressure 80 mm[Hg] Ailyn Baez Work Phone: [facility] Work Phone: 09-09-2021 11:34-0500 Heart rate 94 /min Ailyn Baez Work Phone: [facility] Work Phone: 09-09-2021 11:34-0500 Respiratory rate 16 /min Ailyn Baez Work Phone: [facility] Work Phone: 09-09-2021 11:34-0500 SaO2% (BldA) [Mass fraction] 90 % [facility] Work Phone: 09-09-2021 11:34-0500 Systolic blood pressure 130 mm[Hg] [facility]ae[facility] Work [facility]: Encounters Encounter Date Encounter Type Care Provider Facility Start: 05-16-2024 End: 05-16-2024 ambulatory YUNG A FELTER Not Available Start: 05-16-2024 End: 05-16-2024 Patient encounter procedure Yung A Felter 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 Work Phone: [facility] Comment on above: Seborrheic keratosis of scalp; Inflamed seborrheic keratosis Start: 05-16-2024 End: 05-16-2024 Bamboo flowsheet Yung A Cheryler 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 Work Phone: [facility] Start: 05-16-2024 End: 05-16-2024 Bamboo flowsheet Yung A Felter 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 Work Phone: [facility] Start: 05-14-2024 End: 05-14-2024 Bamboo flowsheet Annette Aichholz [employer] CAMP ATTENDANT Work Phone: [facility] Start: 05-14-2024 End: 05-14-2024 Bamboo flowsheet Annette Aichholz AUTO CAMP ATTENDANT Work Phone: [facility] Start: 05-14-2024 End: 05-14-2024 Office outpatient visit 10 minutes Annette Aichholz AUTO CAMP ATTENDANT Work Phone: [facility] Comment on above: Seborrheic keratosis of scalp (Primary Dx) Start: 05-14-2024 End: 05-14-2024 ambulatory ANNETTE AICHHOLZ Not Available Start: 04-16-2024 End: 04-16-2024 ambulatory [facility] Start: 04-11-2024 End: 04-11-2024 ambulatory SOHAN TREVIÑO Not Available Start: 03-13-2024 End: 03-13-2024 ambulatory ANNETTE AICHHOLZ Not Available Start: 01-04-2024 End: 01-04-2024 ambulatory ANNETTE AICHHOLZ Not Available Start: 12-12-2023 End: 12-12-2023 ambulatory ANNETTE AICHHOLZ Not Available Start: 10-31-2023 End: 10-31-2023 ambulatory ANNALEE A EDGAR Not Available Start: 10-05-2023 End: 10-05-2023 ambulatory ANNETTE AICHHOLZ Not Available Start: 09-21-2023 End: 09-21-2023 ambulatory ANNALEE A EDGAR Not Available Start: 09-12-2023 Bamboo flowsheet Annette Aichholz AUTO CAMP ATTENDANT Work Phone: [facility] Start: 09-12-2023 Bamboo flowsheet Annette Aichholz AUTO CAMP ATTENDANT Work Phone: [facility] Start: 09-12-2023 End: 09-12-2023 Office outpatient visit 25 minutes Annette Aichholz AUTO CAMP ATTENDANT Work Phone: [facility] Comment on above: Edema of both lower extremities (Primary Dx); Type 2 diabetes mellitus without complication, without long-term current use of insulin ([facility]); BMI 25.0-25.9,adult; Chronic obstructive pulmonary disease, unspecified COPD type ([facility]); Primary hypertension ([facility]); Obstructive sleep apnea, adult; Leg swelling; Essential (primary) hypertension ([facility]); B12 deficiency; Benign prostatic hyperplasia with weak urinary stream; 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 ([facility]); Mixed hyperlipidemia ([facility]) Start: 09-12-2023 End: 09-12-2023 ambulatory ANNETTE AICHHOLZ Not Available Start: 09-05-2023 End: 09-05-2023 Clinical Support Annalee Hern[facility]dez [facility] Work Phone: [facility] Comment on above: 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) Start: 09-05-2023 End: 09-05-2023 ambulatory ANNALEE HERNÁNDEZ Not Available Start: 08-09-2023 End: 08-09-2023 ambulatory ANNETTE AICHHOLZ Not Available Start: 07-20-2023 End: 07-20-2023 ambulatory ANNETTE AICHHOLZ Not Available Start: 07-06-2023 End: 07-06-2023 ambulatory SASCHA DWYER Not Available Start: 06-15-2023 End: 06-15-2023 ambulatory ANNALEE HERNÁNDEZ Not Available Start: 04-26-2023 End: 04-28-2023 ambulatory EHAB [facility] Start: 02-07-2023 End: 02-07-2023 Emergency department patient visit Marilyn Alvarado Facility:[facility] Start: 10-06-2022 End: 10-06-2022 ambulatory AIYLN Kapadia [facility] Start: 10-06-2022 End: 10-06-2022 Encounter for general adult medical examination without abnormal findings AILYN Kapadia [facility] Start: 08-27-2022 Rx Renewal Ailyn Darling er Work Phone: [facility] Work Phone: Start: 08-27-2022 End: 08-27-2022 ambulatory Keira Haile Other [facility] Other Start: 08-27-2022 Office outpatient ne w 20 minutes Keirakalina Haile [facility] Start: 03-03-2022 AUDIT Ailyn Darling er Work Phone: [facility] Work Phone: Start: 12-08-2021 Office outpatient vi sit 25 minutes Ailyn Baez Work Phone: [facility] [address] Work Phone: Start: 10-14-2021 Office consultation new/estab patient 60 min Ailyn Baez Work Phone: [facility] 170 Work Phone: Start: 10-07-2021 Adv care pln tlkd & alt dcsn maker docd Ailyn Baez Work Phone: [facility] Work Phone: Start: 09-21-2021 ambulatory IP SURGERY TRA FLORI CONSULT Facility:[facility] Start: 09-14-2021 AUDIT Ailyn Darling er Work Phone: [facility] Work Phone: Start: 09-09-2021 Office outpatient ne w 30 minutes Ailyn Baez Work Phone: [facility] Work Phone: Start: 08-27-2021 End: 08-27-2021 ambulatory [facility]ER [facility] Start: 08-26-2021 ambulatory NA MELLO Facility:[facility] Start: 08-25-2021 End: 08-28-2021 Evaluation and management of inpatient NA MELLO Facility:[facility] Start: 08-25-2021 ambulatory [facility] Start: 08-22-2021 End: 08-22-[address] RADHA [...] Date Procedure Procedure Detail Performing Clinician Start: 05-16-2024 CRYOTHERAPY SKIN LESION Yung A Bonnie 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 Work Phone: Start: 08-05-2021 Insertion of Infusio n Device [...] Treatment Date Care Activity Detail Author Start: 12-13-2024 Urine screening for protein Diabetes: Urine Protein Screening [facility] Start: 06-15-2024 Hemoglobin A1c measurement Diabetes: Hemoglobin A1C [facility] Start: 06-14-2024 End: 06-14-2024 Patient encounter procedure 06/14/2024 1:00 PM EST Office Visit [facility] [address] [place] [phone] Annette Whitfield NP [address] [place] [phone] [facility] Start: 05-14-2024 End: 05-14-2024 Patient encounter procedure 05/14/2024 2:00 PM EDT Office Visit [facility] [address] [place] [phone] Annette Whitfield, AUTO CAMP ATTENDANT [address] [place] [phone] Arrived [facility] Comment on above: Arrived Start: 04-01-2024 Influenza vaccination Influenza Vacc ine (#1) [facility] Start: 12-12-2023 End: 12-12-2023 Patient encounter procedure 12/12/2023 1:00 PM EDT [facility] [address] [place] [phone] Annette Whitfield, AUTO CAMP ATTENDANT [address] [place] [phone] [facility] [facility] Start: 10-11-2023 End: 09-12-2024 Basic metabolic 1998 panel - Serum or Plasma Basic metabolic panel Lab Routine Edema of both lower extremities Expected: 10/11/2023 (Approximate), Expires: 09/12/2024 [facility] Work Phone: Comment on above: Expected: 10/11/2023 (Approximate), Expires: 09/12/2024 Start: 10-07-2023 Medicare Annual Wellness (AWV) Medicare Annual Wellness (AWV) [facility] Start: 09-23-2023 Pneumococcal Vaccine : 65+ Years (2 - PPSV23 or PCV20) Pneumococcal Vaccine: 65+ Years (2 - PPSV23 or PCV20) [facility] Comment on above: Postponed from 06/17 (Other Patient Reasons) Start: 09-21-2023 End: 09-21-2023 Clinical Support 09/21/2023 11:00 AM EST Clinical Support [facility] [address] [place] [phone] Annalee Hernández, [facility] [address] [place] [address] [facility] Start: 09-12-2023 End: 09-12-2023 Patient encounter procedure [facility] Comment on above: Type 2 diabetes denny itus without complication, without long- term current use of insulin ([facility]) Start: 10-06-2022 FUV, Provider: Ailyn Baez, Status: Pen, Time: 1:00 PM FUV, Provider: Ailyn Baez, Status: Pen, Time: 1:00 PM [facility] Work Phone: Start: 04-07-2022 FUV, Provider: Ailyn Baez, Status: Pen, Time: 1:15 PM FUV, Provider: Ailyn Baez, Status: Pen, Time: 1:15 PM [facility] Work Phone: Start: 02-09-2022 FUV, Provider: Narendra Newton, Status: Pen, Time: 10:30 AM FUV, Provider: Narendra Newton, Status: Pen, Time: 10:30 AM [facility] Work Phone: Start: 11-05-2021 FUV, Provider: Narendra Newton, Status: Pen, Time: 3:30 PM FUV, Provider: Narendra Newton, Status: Pen, Time: 3:30 PM [facility] Work Phone: Start: 10-14-2021 NPV, Provider: Narendra Newton, Status: Pen, Time: 11:00 AM NPV, Provider: Narendra Newton, Status: Pen, Time: 11:00 AM [facility] Work Phone: Start: 10-07-2021 FUV, Provider: Ailyn Baez, Status: Pen, Time: 1:15 PM FUV, Provider: Ailyn Baez, Status: Pen, Time: 1:15 PM [facility] Work Phone: Start: 2002 Pneumococcal Vaccine : 65+ Years (2 - PPSV23 or PCV20) Pneumococcal Vaccine: 65+ Years (2 - PPSV23 or PCV20) [facility] Start: 2002 Pneumococcal Vaccine : 65+ Years (2 of 2 - PPSV23 or PCV20) Pneumococcal Vaccine: 65+ Years (2 of 2 - PPSV23 or PCV20) [facility] Start: 04-03-1999 Pneumococcal Vaccine : 65+ Years (2 of 2 - PPSV23 or PCV20) Pneumococcal Vaccine: 65+ Years (2 of 2 - PPSV23 or PCV20) [facility] Start: 1947 Glaucoma screening Diabetes: R etinopathy Screening [facility] Immunizations Immunization Date Immunization Notes Care Provider Fa cili 05-25-2023 Seasonal, quadrivale nt, recombinant, injectable influenza vaccine, preservative free [facility] Work Phone: [facility] 05-25-2023 influenza virus vaccine, unspecified formulation Annette Whitfield NP Work Phone: [facility] 05-13-2023 SARS-COV-2 (COVID-19 ) vaccine, mRNA, spike protein, LNP, PF, 50 mcg/0.5 mL [facility] Work Phone: [facility] 04-25-2022 influenza, injectabl e, quadrivalent, preservative free [facility] Work Phone: [facility] 12-03-2021 Moderna COVID-19 Vaccine 100 MCG/0.5ML Intramuscular Suspension Ailyn Baez Work Phone: [facility] Work Phone: 06-23-2021 influenza virus vaccine, unspecified formulation Ailyn Baez Work Phone: [facility] Work Phone: Comment on above: Series: 06-23-2021 Influenza, injectabl e, Madin [place] Canine Kidney, preservative free, quadrivalent Annalee Hernández [facility] Work Phone: [facility] 06-09-2021 Moderna COVID-19 Vaccine 100 MCG/0.5ML Intramuscular Suspension Ailyn Kapadia Baez Work Phone: [facility] Work Phone: Comment on above: Series: 09-30-2020 Moderna COVID-19 Vaccine 100 MCG/0.5ML Intramuscular Suspension Ailyn Baez Work Phone: [facility] Work Phone: Comment on above: Series: 09-02-2020 Moderna COVID-19 Vaccine 100 MCG/0.5ML Intramuscular Suspension Aiyln Baez Work Phone: [facility] Work Phone: Comment on above: Series: 05-07-2020 Influenza, injectabl e, Madin Elaina Canine Kidney, preservative free, quadrivalent Ailyn Baez Work Phone: [facility] Work Phone: 02-06-1999 pneumococcal conjuga te vaccine, 13 valent Ailyn Baez Work Phone: [facility] Work Phone: Comment on above: Series: Payers Date Payer Category [id number] 2016 Unknown 2002 Medicare [id number] 1959 Medicare [id number] 1959 Self-pay 1959 Unknown [id number] 1937 Unknown [id number] 2.16.840.1.137117.3.579.2 .593 1937 Unknown [id number] 2.16.840.1.185818.3.579.2 .593 1937 Unknown [id number] 2.16.840.1.412599.3.579.2 .593 1937 Unknown [id number] 2.16.840.1.089771.3.579.2 .593 1937 Unknown [id number] 2.16.840.1.830824.3.579.2 .732 1937 Unknown [id number] 2.16.840.1.938510.3.579.2 .732 1937 Unknown [id number] 2.16.840.1.448493.3.579.2 .732 1937 Unknown [id number] 2.16.840.1.289775.3.579.2 .732 1937 Unknown [id number] 2.16.840.1.091955.3.579.2 .732 1937 Unknown [id number] 2.16.840.1.376852.3.579.2 .732 1937 Unknown [id number] 2.16.840.1.130677.3.579.2 .732 1937 Unknown [id number] 2.16.840.1.313808.3.579.2 .732 1937 Unknown [id number] 2.16.840.1.037369.3.579.2 .732 1937 Unknown [id number] 2.16.840.1.403333.3.579.2 .732 1937 Unknown [id number] 2.16.840.1.461272.3.579.2 .1244 1937 Unknown [id number] 2.16.840.1.948988.3.579.2 .1259 1937 Unknown [id number] 2.16.840.1.676193.3.579.2 .1259 1937 Unknown [id number] 2.16.840.1.530548.3.579.2 .1259 1937 Unknown [id number] 2.16.840.1.298483.3.579.2 .1259 1937 Unknown [id number] 2.16.840.1.775161.3.579.2 .1259 1937 Unknown [id number] 2.16.840.1.758410.3.579.2 .1259 1937 Unknown [id number] 2.16.840.1.123853.3.579.2 .1259 1937 Unknown [id number] 2.16.840.1.431670.3.579.2 .1259 1937 Unknown [id number] 2.16.840.1.077179.3.579.2 .1259 1937 Unknown [id number] 2.16.840.1.556837.3.579.2 .1259 1937 Unknown [id number] 2.16.840.1.517956.3.579.2 .1259 1937 Unknown [id number] 2.16.840.1.122749.3.579.2 .1259 1937 Unknown [id number] 2.16.840.1.305691.3.579.2 .1259 1937 Unknown [id number] 2.16.840.1.622337.3.579.2 .1259 1937 Unknown [id number] 2.16.840.1.234366.3.579.2 .1259 Unknown [id number] 2.16.840.1.008123.3.579.2 .593 Unknown [id number] 2.16.840.1.971541.3.579.2 .593 Unknown [id number] 2.16.840.1.131917.3.579.2 .593 Unknown [id number] 2.16.840.1.194937.3.579.2 .531 Social History Date Type Detail Facility Start: 08-09-2023 End: 09-12-2023 Former smoker Former smoker [facility] Work Phone: Start: 08-09-2023 End: 09-12-2023 Sex Assigned At [facility] [employer] Other Start: 04-27-2023 Tobacco smoking status [facility] Ex-smoker [facility] History of tobacco use Current smoker [facility] History of tobacco use Cigarette Smoker [facility] Start: 04-27-2023 Tobacco use and exposure Smokeless tobacco non-user [facility] Start: 08-22-2023 End: 05-16-2024 Alcohol intake Lifetime non-drinker (finding) [facility] Start: 04-22-2023 Alcohol Comment caffeine intak e: more than 4 cups per day. [facility] Start: 1935 Sex Assigned At Not on file [facility] Clinical Notes 07-28-2021 to 05-16-2024 LYNDA Barr - 05/16/2024 2:40 PM Darling Whitfield NP - 05/14/2024 2:39 PM MARI ALEMAN - 05/14/2024 2:00 PM EDTLhannah Whitfield NP - 05/14/2024 2:00 PM EDT Note Date & Type Note Facility 05-16-2024 History of Present illness Narrative Lesions: Location: left forehead Duration: months Quality: denies pain, denies itch, denies bleeding Modifying factors: aggravated by picking Associated symptoms: rough, scaly Treatments: none New patient, referred by Annette Whitfield NP All pertinent medical history, medications, and allergies were reviewed. General Exam: alert, oriented to person, place, and time, normal affect, well appearing Accompanied by spouse A focused exam completed based on patient reported problems, see below: 1. Seborrheic keratosis of scalp Related Procedures Ambulatory referral to Dermatology 2. Inflamed seborrheic keratosis Left Frontal Scalp Inflamed seborrheic keratoses: pink and brown stuck on verrucous scaly papule with surrounding erythema and bloody crust. The patient was informed that symptomatic seborrheic keratoses are benign growths that become inflamed, itchy, tender, traumatized, caught on clothing, or bleed. Symptomatic lesions can be treated with cryotherapy or curretage. Thicker lesions treated with cryotherapy may require more than one treatment. The patient was instructed to notify the office if abnormal redness or tenderness develops at the treatment site. Cryotherapy today, see procedure note. Diagnosis: Inflamed seborrheic keratosis Indication: Inflamed Consent: Verbal consent was obtained and risks were discussed, including, but not limited to risks of scarring, darker or critical power install technician pigmentary changes, recurrence, incomplete removal and infection. Method: Liquid nitrogen was used to treat the lesion(s) with two 5-10 second freeze-thaw cycles Number of lesions treated: 1 Post-procedure instructions: Instructions were given orally and in writing. The office will be contacted if the lesion fails to resolve despite treatment, or if a side effect develops such as abnormal crusting, scabbing, redness or tenderness Cryotherapy, skin lesion - Left Frontal Scalp Next Visit: prn for any new/changing lesions documented in this encounter [facility] 05-14-2024 History of Present illness Narrative Associated Problem(s): Seborrheic keratosis of scalp Growing in size, irritated, desires removal Refer to derm Growth popped up about a month ago Images from the original note were not included. Fidel Palomino is a 88 y.o. male presents with chief complaint of No chief complaint on file. HPI: Skin lesion: left side of forehead, present for approx 4 weeks Itching: no Easy bleeding: no Pain: no Similar lesions; no Growing larger SUBJECTIVE: MEDICATIONS: Current Outpatient Medications Medication Instructions aspirin 81 mg, Oral, Daily atorvastatin (LIPITOR) 40 mg, Oral, Nightly carvedilol (COREG) 25 mg, Oral, 2 times daily with meals cyanocobalamin (Vitamin B-12) 1000 MCG tablet 1 tablet every other day finasteride (PROSCAR) 5 mg, Daily furosemide (LASIX) 20 mg, Oral, Every other day hydroCHLOROthiazide (HYDRODIURIL) 25 mg, Oral, Every morning loratadine (CLARITIN) 10 mg, Daily oxygen (O2) 2 L/min, Continuous potassium chloride CR (Klor-Con M10) 10 MEQ ER tablet 10 mEq, Oral, Daily PRN, Do not crush or chew. ALLERGIES: No Known Allergies REVIEW OF SYMPTOMS: Review of Systems Constitutional: Negative for activity change, appetite change and unexpected weight change. HENT: Negative for ear pain, nosebleeds, sneezing, trouble swallowing and voice change. Eyes: Negative for pain, discharge and visual disturbance. Respiratory: Negative for apnea, chest tightness and wheezing. Cardiovascular: Positive for leg swelling. Gastrointestinal: Negative for abdominal distention, blood in stool, constipation and diarrhea. Genitourinary: Negative for decreased urine volume, difficulty urinating, dysuria and hematuria. Skin: Negative for color change. Skin lesion left zoroastrian area Neurological: Negative for dizziness, tremors and seizures. Psychiatric/Behavioral: Negative for agitation, decreased concentration, hallucinations, self-injury and suicidal ideas. The patient is not nervous/anxious. Hematological: Negative for adenopathy. Does not bruise/bleed easily. Endocrine: Negative for cold intolerance, heat intolerance, polydipsia and polyuria. Allergic/Immunologic: Negative for environmental allergies and food allergies. PAST MEDICAL HISTORY Past Medical History: Diagnosis Date Appendicitis 2020 Hearing decreased, bilateral HTN (hypertension) (CMS/HCC) Hyperlipidemia (CMS/HCC) Pre-diabetes 09/12/2023 Primary hypertension (CMS/HCC) 08/28/2021 Sensorineural hearing loss (SNHL) of right ear with restricted hearing of left ear Vertigo Past Surgical History: Procedure Laterality Date CATARACT EXTRACTION, BILATERAL Bilateral HERNIA REPAIR MD LAP,APPENDECTOMY 07/28/2021 US GUIDED PERCUTANEOUS PERITONEAL OR RETROPERITONEAL FLUID COLLECTION DRAINAGE 08/25/2021 US GUIDED PERCUTANEOUS PERITONEAL OR RETROPERITONEAL FLUID COLLECTION DRAINAGE 08/25/2021 family history includes Cancer in his father; Dementia in his brother; Diabetes in his sibling; Heart disease in his mother. OBJECTIVE: Visit Vitals BP 126/62 (BP Location: Left arm, Patient Position: Sitting, BP Cuff Size: Adult long) Pulse 62 Temp 98.1 F (Temporal) Resp 18 Ht 5' 11.5 Wt 185 lb 3.2 oz SpO2 94% BMI 25.47 kg/m Smoking Status Former BSA 2.06 m Physical Exam Vitals and nursing note reviewed. Constitutional: Appearance: Normal appearance. HENT: Head: [...] Pulmonary effort is normal. Breath sounds: Rales (bi basilar) present. Abdominal: General: Bowel sounds are normal. Palpations: Abdomen is soft. Musculoskeletal: Cervical back: Neck supple. Right lower leg: Edema present. Left lower leg: Edema present. Skin: General: Skin is warm and dry. Capillary Refill: Capillary refill takes 2 to 3 seconds. Findings: Lesion (left zoroastrian, warty, c/w seborrhic keratosis, measures [id number]) present. Neurological: General: No focal deficit present. Mental Status: He is alert. Psychiatric: Mood and Affect: Mood normal. Behavior: Behavior normal. Thought Content: Thought content normal. Judgment: Judgment normal. ASSESSMENT AND PLAN: No follow-ups on file. Problem List Items Addressed This Visit Seborrheic keratosis of scalp - Primary Growing in size, irritated, desires removal Refer to derm Relevant Orders Ambulatory referral to Dermatology documented in this encounter [facility] 04-16-2024 Note Lipid abnormalities are well controlled and liver function normal Continue lipitor 40 mg [facility] 04-16-2024 Note Coronary artery dise ase is stable without any concerning symptoms Continue GDMT- ASA, lipitor, coreg Lipid levels are well controlled and d/w pt to call office or 911 for any concerning symptoms- chest pain, SOB, increased fatigue continue risk factor modifications- heart healthy diet, regular exercise as tolerated and continue all medications. [facility] 04-16-2024 Note Hypertension is well controlled Continue coreg and hydrochlorothiazide Renal function is normal [facility] 04-16-2024 Note [facility] CARDIOLOGY PROGR ESS NOTE HPI: Fidel Palomino is a 88 y.o. male here for 1 year routine F/U HPI 88 yo male presents today for routine F/U for past medical history of CAD, hypertension, syncope with coughing Overall states that he is feeling rather well and denied any activity limiting symptoms. Pt denies sob, chest pain, palpatations. Remains rather active at home, states he does occasionally have ankle swelling but states is no worse than usual and usually goes down in the evenings. Review of Systems Cardiovascular: Positive for leg swelling (ankles). Visit Vitals BP 133/70 (BP Location: Right arm, Patient Position: Sitting) Pulse 66 Ht 1.803 m (5' 11 ) Wt 81.2 kg (179 lb) SpO2 90% BMI 24.97 kg/m??? Smoking Status Former BSA 2.02 m??? No Known Allergies Medications: Current Outpatient Medications on File Prior to Visit Medication Sig Dispense Refill aspirin 81 mg EC tablet Take 81 mg by mouth in the morning. atorvastatin (Lipitor) 40 mg tablet Take 40 mg by mouth in the morning. carvedilol (Coreg) 25 mg tablet Take 25 mg by mouth with breakfast and with evening meal. finasteride (Proscar) 5 mg tablet Take 5 mg by mouth in the morning. Do not crush, chew, or split. furosemide (Lasix) 20 mg tablet Take by mouth if needed. PRN hydroCHLOROthiazide (HYDRODiuril) 25 mg tablet Take 25 mg by mouth in the morning. OXYGEN THERAPY Inhale. 2L at night time potassium chloride ER (Micro-K) 10 mEq ER capsule TAKE 1 CAPSULE BY MOUTH NEEDED for edema cyanocobalamin, vitamin B-12, 5,000 mcg tablet,disintegrating Take 1 tablet by mouth in the morning. No current facility-administered medications on file prior [...] back: Normal range of motion. Right lower le+ ankle edema. Left lower le+ ankle edema. Skin: General: Skin is warm and dry. Capillary Refill: Capillary refill takes less than 2 seconds. Neurological: General: No focal deficit present. Mental Status: he is alert and oriented to person, place, and time. Psychiatric: Mood and Affect: Mood normal. Behavior: Behavior normal. Thought Content: Thought content normal. Judgment: Judgment normal. Labs: 12/14/23 CBC stable- low HBG, renal and liver function normal and Lipid levels well controlled Component Ref Range & Units 4 mo ago WHITE BLOOD CELL COUNT 3.8 - 10.8 Thousand/uL 5.3 RED BLOOD CELL COUNT 4.20 - 5.80 Million/uL 4.09 Low HEMOGLOBIN 13.2 - 17.1 g/dL 12.1 Low HEMATOCRIT 38.5 - 50.0 % 38.0 Low MCV 80.0 - 100.0 fL 92.9 MCH 27.0 - 33.0 pg 29.6 MCHC 32.0 - 36.0 g/dL 31.8 Low RDW 11.0 - 15.0 % 12.5 PLATELET COUNT 140 - 400 Thousand/uL 150 Component 03/19/24 12/14/23 09/30/23 08/09/23 SODIUM 137 -- 139 136 POTASSIUM 3.8 -- 3.5 3.8 CHLORIDE 99 -- 100 98 CARBON DIOXIDE 33.0 High -- 33.9 High 33.9 High ANION GAP 8.8 -- 8.6 7.9 GLUCOSE 107 High NEGATIVE 189 High 111 High BLOOD UREA NITROGEN 16.0 -- 17.0 14.0 CREATININE 0.88 -- 0.91 0.91 TBH EGFR-AF [place] >60 -- >60 >60 TBH EGFR-NON AF [place] >60 -- >60 >60 BUN CREATININE RATIO 18.2 -- 18.7 15.4 CALCIUM 8.9 -- 8.6 9.1 Component Ref Range & Units 4 wk ago Comments GLYCOHEMOGLOBIN A1C 4.5 - 6.2 % 5.9 ADA RECOMMENDED LIMIT 4.0 - 6.0 ADA THERAPEUTIC TARGET < 7.0 ACTION SUGGESTED > 7.0 ESTIMATED AVERAGE GLUCOSE mg/dL 123 Component Ref Range & Units 4 mo ago Comments CHOLESTEROL, TOTAL <200 mg/dL 126 HDL CHOLESTEROL > OR = 40 mg/dL 46 TRIGLYCERIDES <150 mg/dL 74 LDL-CHOLESTEROL mg/dL (calc) 65 Reference range: <100 Desirable range <100 mg/dL for primary prevention; <70 mg/dL for patients with CHD or diabetic patients with > or = 2 CHD risk factors. CHOL/HDLC RATIO <5.0 (calc) 2.7 NON HDL CHOLESTEROL <130 mg/dL (calc) 80 09/29/22 Sodium 134 - 146 mmol/L 138 Potassium, Bld 3.5 - 5.0 mmol/L 4.2 Chloride 98 - 109 mmol/L 96 Low CO2 22 - 32 mmol/L 35 High Anion gap 5 - 15 mmol/L 7 BUN 5 - 27 mg/dL 16 Creatinine 0.60 - 1.30 mg/dL 0.80 Comment: METHOD TRACEABLE TO IDMS STANDARD Glucose 65 - 99 mg/dL 139 High Calcium 8.5 - (more content not included)... [facility] 04-16-2024 Note Pt is here for a one year follow up. Pt denies sob, chest pain, palpatations. Review of Systems Cardiovascular: Positive for leg swelling (ankles). 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) Relevant Medications aspirin 81 MG EC tablet carvedilol (Coreg) 25 MG tablet Leg swelling Relevant Medications potassium chloride CR (Klor-Con M10) 10 MEQ ER tablet Hyperlipidemia (CMS/HCC) Relevant Medications atorvastatin (Lipitor) 40 MG tablet Obstructive sleep apnea, adult Type 2 diabetes mellitus without complication, without long-term current use of insulin ([facility]) - Primary BMI 25.0-25.9,adult Edema of both lower extremities Relevant Medications furosemide (Lasix) 20 MG tablet hydroCHLOROthiazide (HYDRODiuril) 25 MG tablet Other Relevant Orders Basic metabolic panel Other Visit Diagnoses Essential (primary) hypertension ([facility]) Relevant Medications hydroCHLOROthiazide (HYDRODiuril) 25 MG tablet documented in this encounter [facility] 09-05-2023 History of Present illness Narrative Hearing Aid Discussion: Pt here for HAD. 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 Discussed pros and cons of binaural amplification vs BICROS and pt decided to try BICROS. Pt likes beige and needs 3M cat breeder for right ear and 3S cat breeder for left ear. Will order aids from [email or web address]. Pt scheduled for HAF. Cost at fitting will be $3400 documented in this encounter [facility] 04-26-2023 Note [facility] Cardiology Clinic Note Chief Complaint: Patient here [...] 4. No anginal symptoms or arrhythmias noted. Echocardiogram-[facility] Name: FIDEL PALOMINO Study Date: 05/18/2022 09:03 AM B/P: 136 mmHg/80 mmHg HR: 62 bpm Date of : 1935 Location: [facility] Height: 71 in. 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 [facility] 08-27-2022 Evaluation note Encounter Date Diagnosis Assessment [...] back pain home care material was printed [employer] Other [id number] NoteTransitional Care Management Contact Initial communication post- discharge: 1st attempt: 08/31/21 Sources of Information: [x]Patient, family member or career and transition teacher: Manasa Palomino (spouse) [x] Hospital Discharge Summary [...] with bathing and dressing. Per notes [facility] called [place] office advises unable due to lack of staffing message sent to inpatient [employer] to advise for correct agency Medication changes: Yes If yes, what are they and does patient understand how and when to take? yes Medication list reviewed with patient: Yes Needs follow up appointment or procedure: Yes Future Appointments Date Time Department Provider Status 09/21/21 8:00 AM LIVER [phone] Jd Dubon MD Scheduled 09/22/21 8:00 AM SURGERY GENERAL [phone] Clotilde Pettit APRN-TRAVELING OPERATOR Scheduled 11/04/21 8:00 AM [facility] [phone] Tatyana Potter MD Scheduled Review need for or follow up on pending diagnostic test, referrals to specialist and treatment plans with patient/caregiver: No Community resources identified for patient/family: [facility] i.e. [employer], [employer], [employer], [employer] Durable medical equipment ordered:Yes Education provided to patient/caregiver to support self management, ADL's, etc: ANDI offered Mode of Transportation: Patient arranges Additional information needed and requested:No Reminded to bring in all medications. (Old AND New) to future appointment. Interact with other health child care counselor involved in patient care:[facility] [employer] [id number] NoteMedicine Intensive Care Unit Critical Care Progress Note Fidel Palomino 86 year old 204.8075 lbs MRN/Room: [id number]/3-129/1 Length of stay: 2 day(s) Summary Fidel Palomino is a 86 year old male with a PMH of HTN, HLD, [facility] c/b illeus who presented to the hospital 08/25 with syncope/lightheadedness, nausea/poor appetite. Imaging at outside hospital showed a fluid collection in R paracolic gutter concerning for abscess. Transferred to [facility] for further management. IR placed intraabdominal drain for fluid collection 08/25. Recommended continued antibiotics with Vanc/Cefepime/Flagyl. Fluid cultures obtained from site. In the [facility] ED, imaging showed moderate R [...] SpO2 O2 Device O2 Flow Rate (l/min) 08/27/212 -- -- -- 78 27 100 % [...] BUN Cr Ca Mg PO4 08/27/218 1.8 08/27/21417 134 4.0 94 33 11 149 25 1.16 7.6 (more content not included)...[facility] [id number] NoteDISCHARGE SUMMARY [facility] [address] [place] [place] [address] Fidel Palomino Date of : 1935 86 [...] Technically successful ultrasound-guided placement of a 10 [place] pigtail catheter into right paracolic gutter abscess. [...] of HTN, HLD, [facility] c/b illeus???who presented???to the hospital 08/25???with syncope/lightheadedness, nausea/poor appetite. Imaging at outside hospital showed a fluid collection in R paracolic gutter concerning for abscess. Transferred to [facility] for further management. IR placed intraabdominal drain for fluid collection 08/25. Recommended continued antibiotics with Vanc/Cefepime/Flagyl. Fluid cultures obtained from site.? In the [facility] ED, imaging showed moderate R [...] (new onset cirrhosis) (appoint[facility] at [facility], patient understands this and is responsible for [...] diagnoses where applicable, including test results Rubio Baker, DO PGY-2 [id number] [facility] [id number] NotePHYSICAL THERAPY ACUTE EVALUATION Referral received, chart [...] available: Wheeled walker, tub bench, grab bars. DOCKING SAW OPERATOR Status: Independent living. Pt ambulated without an [...] Dep Max Mod Min CG CS DS NH I Comment Rolling x Supine>sit x HOB elevated. Sitting trial x Unsupported sitting at EOB. Transfer x Sit<>stand x Without an assistive device. Standing trial x Ambulation x 30 feet x2 without an assistive device. Pt demonstrated steady step-through gait pattern. Stairs x 4 steps with unilateral rail. Pt negotiated stairs utilizing a [id number] pattern. Balance: -Unsupported static sitting: independent. -(Un)supported [...] Guard Assist/Supervision 4 - Non = Modified [place]/Independent Patient/Family Education: Instructed pt in roles of [...] program Discharge lucero (more content not included)...The [employer] [id number] NoteOCCUPATIONAL THERAPY INITIAL EVALUATION Patient seen from 0829 to 0850 on CCP3W unit for 21 minutes. Co-tx with PT due to high medical complexity, safety concerns, assist of 2 required for mobility and/or advanced airway in place. Admit date: 08/25/2021 4:58 AM Reason for Admit: patient is tx from [facility] for post op complications post appendectomy on [...] of risks and benefits of treatment Appearance: cyber software engineer, Pulse Oximeter, IV, Rivers and Sequential Compression Devices (SCDs) Alertness: WFL Affect: WNL Cooperation/Behavior: Appropriate dialogue with therapist and Pleasant and cooperative Communication: WFL Pain: Pain ratin/10, Location: no pain Pain Relief Interventions Implemented: None required; No pain at this time Self Care: Assistance Level Dep Max Mod Min CG CS DS NH I Set-Up Comment Feeding x Independent Grooming/Hygiene x Standing at sink to complete hand hygiene Bathing:UB x Anticipate Bathing:LB x Based on functional reach/pain. Dressing:UB x Don gown Dressing: LB x Assist to don socks. Patient reports reports assist from required at baseline. Toileting x Seated at toilet, completes hygiene standing Transfers/Bed Mobility: Assistance Level Dep Max Mod Min CG CS DS NH I Set-Up Comment Toilet Transfers x Sit [...] With Patients permission ordered no equipment via [employer] Order. If any questions contact [facility] DME Provider at [phone]. ??? 6 Clicks Daily Activity OT 08/28/2021 Help from another person Eating meals 4 Help from another person taking care of (more content not included)...The wireWAX01-27-2022 [facility] Referral from: Insurance verification:in progress Discussion with patient:to follow [facility] Agency:to be determined Start of care:to be determined Other:Following for HIVAT needs at tx. Weekends, holidays or after hours contact [facility] intake @ [phone] Annette Cardozo RN Clinical Transition Specialties [facility] [phone] or [phone] [facility] Erlan[id number] NoteBEDSIDE RN PICC LINE INSERTION PROCEDURE NOTE Date: 08/27/2021 Time: 1440 Patient [facility]: [facility] Indication for line: IV ANTIBIOTICS [...] VERIFICATION Klarissa Ahuja RN Vascular Access TeamThe [facility] [id number] NoteDNR Comfort Care Arrest- Do Not Intubate [...] Yes BARRIERS TO PLAN OF CARE: None UX DESIGNER RN Carly Mcneal RN DAY SHIFT RN Ghislaine Baez RNMercy Health Clermont HospitalTradeSync [id number] NoteMedicine Intensive Care Unit Critical Care Progress Note Fidel Palomino 86 year old 205.0275 lbs MRN/Room: [id number]/3-129/1 Length of stay: 2 day(s) Summary Fidel Palomino is a 86 year old male with a PMH of HTN, HLD, recent appendectomy (07/28/21, at [facility]) c/b illeus who presented to the hospital 08/25 with syncope/lightheadedness, nausea/poor appetite. Imaging at outside hospital showed a fluid collection in R paracolic gutter concerning for abscess. Transferred to [facility] for further management. IR placed intraabdominal drain for fluid collection 08/25. Recommended continued antibiotics with Vanc/Cefepime/Flagyl. Fluid cultures obtained from site. In the [facility] ED, imaging showed moderate R [...] data filed at (more content not included)...The [employer] [facility] 08-26-2021 NoteSocial Work ICU Assessment: Referral: gang boss screen for pt has living will but not with pt. SW met with pt and , Manasa at bedside. HX: 86 year old???male???with a h/o HTN, HLD, BPH, remote left inguinal hernia repair with mesh, s/p appendectomy 07/28/21 (done at [facility]) c/b ileus???who presented to [facility] ED for lightheadedness and dizziness. Living Situation: Pt reports he lives with in one story home. Family/Next of Kin: Manasa Georgette: [phone]. Pt has 4 adult children. Advance Directive Information: Pt reports he does not have ADs in place and only Last Will and Testament. 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 SW addressed the hierarchy of identification of substitute decision-makers in the state of [place] is (in order) court-appointed legal guardian, health-care power of consumer attorney, spouse, majority of adult children, parents, majority of adult siblings, and nearest relative. Finances/Insurance: Medicare A AND B and [employer]. Social Work Need/Indicators: SW met with pt [...] PT/OT, recs. SW will follow. Bailey Casillas [facility] Care Coordination DepartmentThe [facility] [id number] NoteDNR Comfort Care Arrest- Do Not Intubate [...] tonight BARRIERS TO PLAN OF CARE: none UX DESIGNER LEAH Soler DAY SHIFT LEAH Mancera [facility] [id number] NoteMedicine Intensive Care Unit Critical Care Progress Note Fidel Palomino 86 year old 205.0275 lbs MRN/Room: [id number]/CP3-129/1 Length of stay: 1 day(s) Summary Fidel Palomino is a 86 year old male with a PMH of HTN, HLD, [facility] c/b illeus who presented to the hospital 08/25 with syncope/lightheadedness, nausea/poor appetite. Imaging at outside hospital showed a fluid collection in R paracolic gutter concerning for abscess. Transferred to [facility] for further management. IR placed intraabdominal drain for fluid collection 08/25. Recommended continued antibiotics with Vanc/Cefepime/Flagyl. Fluid cultures obtained from site. In the [facility] ED, CBC with leukocytosis 18.2. [...] -- 86 20 95 % -- -- 08/25/21 235 114/78 -- -- 81 25 96 % [...] 78 (!) 28 100 % Nasal cannula 5 08/25/21 1517 153/75 -- -- 80 (!) [...] Port #1 Capped;Patent (more content not included)...[facility] [id number] NoteMedicine Intensive Care Unit History and Physical Examination Fidel Palomino 86 year old [id number] lbs MRN/Room: [id number]/3-129/1 Admit Date: 08/25/2021 : 1935 PCP Contact: [...] HTN, HLD, recent appendectomy (07/28/21, at [facility]) c/b illeus who presented to the [...] showed small b/l pleural effusions. Transferred to [facility] for further management. IR placed [...] Nasal cannula 08/25 (more content not included)...The [employer] [id number] Note EXAMINATION: US CATH DRAINAGE PERITONEAL (MARIO) [...] sterile fashion. Under ultrasound guidance, a 10 [place] African self-retaining all-purpose drainage catheter was advanced into [...] Technically successful ultrasound-guided placement of a 10 [place] pigtail catheter into right paracolic gutter abscess. MACRO: NoneThe [facility]01-25-2022 NotePOST- PROCEDURE NOTE Pre-procedure Diagnosis: Right abdominal [...] of the procedure Jere Hamilton MD RadiologyThe [facility]01-25-2022 NoteMODIFIED HISTORY AND PHYSICAL: Procedure:Ultrasound guided abdominal [...] Directives (Living will, health care power of consumer attorney): none Code Status For This Procedure: Full Code Jere Hamilton MD RadiologyThe [facility] [facility]01-25-2022 NoteAcute Care Surgery - Plan of Care Note 86 year old male with PMHx HTN, HLD, BPH, remote L inguinal hernia repair w/ mesh, appendectomy (07/28/2021 at [place]) c/b ileus presented to OSH with lightheadedness and transferred w/ bilateral pleural effusions and R paracolic gutter abdominal collection. Plan: -Admit to medicine for management of pulmonary effusions, UTI, DIONISIO -Plan for IR drain placement of fluid collection -Obtain cultures Assessment and plan to be discussed with Dr. Garcia. Denise Lincoln MD, MPH General Surgery PGY-1 ACS Consult: [phone] ACS Floor: [phone] Addendum Evaluated patient at bedside at [...] JA. Garcia. Nura Sanchez MD General Surgery [id number] [facility] [id number] NoteCONSULTATION Consultation Date: 07-28-21 REASON FOR CONSULTATION: [...] he is willing to undergo the procedure. [facility] Signed and Approved by: DR GOYO VENTURA . 08/02/2021 10:29:00[facility]12-28-2021 NoteOPERATIVE NOTE OPERATION DATE: 07-28-21 ANESTHETIC: General. IV FLUIDS:Crystalloid 1,000 mL. RESEARCH METHODS INSTRUCTOR:JEAN Matthews PREOPERATIVE DIAGNOSIS:Acute appendicitis. POSTOPERATIVE DIAGNOSIS:Same. PROCEDURE [...] taken to the PACU in fair condition. [facility] Signed and Approved by: DR GOYO VENTURA . 08/02/2021 10:29:00[facility] complaint Narrative - Reported* FIDEL PALOMINO is here for an initial evaluation. * Reason for Visit: COPD, JOE,. * Appointment requested by: Ailyn Baez . 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) Mixed hyperlipidemia (CMS/HCC) Mixed hyperlipidemia documented in this encounter [facility] HealthcareEvaluation note* Diagnosis Leg swelling- Primary Swelling of limb Chronic obstructive pulmonary disease, unspecified COPD type (CMS/HCC) Primary hypertension (CMS/HCC) Unspecified essential hypertension Primary hypertension (CMS/HCC)- Primary Unspecified essential hypertension BMI 25.0-25.9,adult Dyspnea, unspecified type Acute non-recurrent sinusitis of other sinus Leg swelling Swelling of limb Primary hypertension (CMS/HCC)- Primary Unspecified essential hypertension 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) Mixed hyperlipidemia (CMS/HCC) Mixed hyperlipidemia B12 deficiency Edema of both lower extremities Essential (primary) hypertension (CMS/HCC) Unspecified essential hypertension Leg swelling Swelling of limb Type 2 diabetes mellitus without complication, without long-term current use of insulin (CMS/HCC) Type 2 diabetes mellitus without complication, without long-term current use of insulin (CMS/HCC)- Primary B12 deficiency 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) Mixed hyperlipidemia (CMS/HCC) Mixed hyperlipidemia Primary hypertension (CMS/HCC) Unspecified essential hypertension Edema of both lower extremities Essential (primary) hypertension (CMS/HCC) Unspecified essential hypertension Leg swelling Swelling of limb Memory impairment of gradual onset Seborrheic keratosis of scalp- Primary documented in this encounter [facility] HealthcareEvaluation note* Diagnosis Leg swelling- Primary Swelling of limb Chronic obstructive pulmonary disease, unspecified COPD type (CMS/HCC) Primary hypertension (CMS/HCC) Unspecified essential hypertension Primary hypertension (CMS/HCC)- Primary Unspecified essential hypertension BMI 25.0-25.9,adult Dyspnea, unspecified type Acute non-recurrent sinusitis of other sinus Leg swelling Swelling of limb Primary hypertension (CMS/HCC)- Primary Unspecified essential hypertension 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) Mixed hyperlipidemia (CMS/HCC) Mixed hyperlipidemia B12 deficiency Edema of both lower extremities Essential (primary) hypertension (CMS/HCC) Unspecified essential hypertension Leg swelling Swelling of limb Type 2 diabetes mellitus without complication, without long-term current use of insulin (CMS/HCC) Type 2 diabetes mellitus without complication, without long-term current use of insulin (CMS/HCC)- Primary B12 deficiency 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) Mixed hyperlipidemia (CMS/HCC) Mixed hyperlipidemia Primary hypertension (CMS/HCC) Unspecified essential hypertension Edema of both lower extremities Essential (primary) hypertension (CMS/HCC) Unspecified essential hypertension Leg swelling Swelling of limb Memory impairment of gradual onset Seborrheic keratosis of scalp- Primary Seborrheic keratosis of scalp Inflamed seborrheic keratosis documented in this encounter [facility] general Narrative - Reported* Type Description Date Medical History hypercholesterolemia Medical History Hypertension Surgical History appendicitis 2021 Hospitalization History Appendicitis [employer] Other History of Present illness Narrative* The [...] doing well with his blood pressure goals. [facility] Work Phone: History of Present [...] doing well with his blood pressure goals. [facility] Work Phone: Summary Purpose Family [...] to establish care. Previous Dr. Seaman in [facility] last seen 08/2021. He was recently released from [facility] on 08/28/2021 DX with infection from [...] and content) DATE CREATED AUTHOR 08/25/2021 [facility] DATE CREATED AUTHOR AUTHOR'S ORGANIZ ATION 10/23/2021 [facility] DATE CREATED AUTHOR AUTHOR'S ORGANIZ ATION 12/13/2021 [facility] DATE CREATED AUTHOR AUTHOR'S ORGANIZ ATION 04/08/2022 [employer] DATE CREATED AUTHOR AUTHOR'S ORGANIZ ATION 10/08/2022 [facility] DATE CREATED AUTHOR AUTHOR'S ORGANIZ ATION 02/08/2023 [facility] DATE CREATED AUTHOR AUTHOR'S ORGANIZ ATION 04/16/2024 [facility] DATE CREATED AUTHOR AUTHOR'S ORGANIZ ATION 05/19/2024 [facility] dical Specialists EPIC REASON FOR VISIT (unrecogniz ed section and content) Reason Comments Suspicious Skin Lesion Specialty Diagnoses / Procedures Referred By Contac t Referred To Contact Dermatology Diagnoses Seborrheic keratosis of scalp Procedures MD OFFICE/OUTPATIENT NEW HIGH MDM 60 MINUTES Annette Whitfield, KELL [address] [place] [address] Phone: tel: fax: Yung Nicole, 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 [address] [address] Phone: tel: fax: Referral ID Status Reason Start Date Expiration Date V isits Requested Visits Authorized [id number] Closed Specialty Services Required 05/14/2024 11/10/2024 1 1 Care Teams (unrecognized sec tion and content) Sales Performance Manager Relationship Specialty Start Date End Date Ailyn Baez MD [address] [place] [address] PCP - General Family Medicine 02/23/23 Annette Whitfield NP [address] [place] [phone] Nurse Practitioner Family Medicine 08/01/22 Sales Performance Manager Relationship Specialty Start Date End Date Ailyn Baez MD [address] [place] [address] PCP - General Family Medicine 02/23/23 Annette Whitfield NP [address] [place] [phone] Nurse Practitioner Family Medicine 08/01/22 Sales Performance Manager Relationship Specialty Start Date End Date Ailyn Baez MD [address] [place] [address] PCP - General Family Medicine 02/23/23 Annette Whitfield NP [address] [place] [phone] Nurse Practitioner Family Medicine 08/01/22 Sales Performance Manager Relationship Specialty Start Date End Date Dilip Hensley MD [address] [place] [phone] PCP - General Family Medicine 05/14/24 Annette Whitfield NP [address] [place] [phone] Nurse Practitioner Family Medicine 08/01/22 Sales Performance Manager Relationship Specialty Start Date End Date Dilip Hensley MD [address] [place] [phone] PCP - General Family Medicine 05/14/24 Annette Whitfield NP [address] [place] [phone] Nurse Practitioner Family [facility] 08/01/22 Sales Performance Manager Relationship Specialty Start Date End Date Dilip Hensley MD [address] [place] [phone] PCP - General Family Medicine 05/14/24 Annette Whitfield NP [address] [place] [phone] Nurse Practitioner [facility] 08/01/22 Sales Performance Manager Relationship Specialty Start Date End Date Dilip Hensley MD [address] [place] [phone] PCP - General Family Medicine 05/14/24 Annette Whitfield NP [address] [place] [phone] Nurse Practitioner Family [facility] 08/01/22 FOR RECORDS PERTAINING TO PATIENTS WHO [...] BE BASED ON THE PRIMARY CLINICAL RECORDS. [facility] [employer] [facility]. provides no warranty or guarantee of the accuracy or completeness of information in this document.
== END 2024-06-15 14:27 | disposition home or self-care (01) ==
LOC: LAB 14:27
PROVIDERS: PCP Nurse Practitioner; Visit Provider Nurse Practitioner
DX: J90 Pleural effusion, not elsewhere classified (principal)
CPT/HCPCS: 71046

== ENCOUNTER 2024-09-19 11:16 | Outpatient (OUT) | payer MEDICARE, BC, SELFPAY ==
--- OUTSIDE RECORDS SUMMARY | 2024-09-19 11:32 | XMS_ITS | CCD ---
Author Organization [facility] Inform ion [facility] Care Team Providers Care Hospital Clerk Name Role Phone PAY, DR STUART Attending [...] FAROOQ Consulting Unavailable SAMSA, URBANO Consulting Unavailable URSZULA, ALEX Consulting Unavailable CHASE, SUPA Consulting Unavailable TIFFANI RENTERIA Consulting Unavailable CEZAR SOARES Consulting Unavailable Edward Sanchez Consulting Unavailable Gerardo Espinosa Consulting Unavailable Dominic Steve Consulting Unavailable SWAPNA RANDHAWA Consulting Unavailable ROSS, ALEX Primary Care Unavailable ROSS ALEX Consulting Unavailable ROSS, ALEX Attending Unavailable [...] UNKNOWN Attending Unavailable RIAZ, NA Referring Unavailable NAHID, ZHANE Admitting Unavailable TUPA, NA Referring Unavailable [...] Unavailable Ailyn Baez MD Primary Care Provider [phone] Nahid HYDROLOGICAL TECHNICAL OFFICER, Annette Unavailable RAMSEY JIMENEZ Attending Unavailable BEATRIZ ARAMBULA Attending Unavailable Aichchrystal HYDROLOGICAL TECHNICAL OFFICER, Annette Unavailable Dilip Hensley MD Primary Care Provider [phone] Ailyn Baez DO Unavailable Ailyn Baez DO Primary Care Provider FABIOLA ALAS Attending Unavailable AICHHOLZ, ANNETTE Attending Unavailable AICHHOLZ, ANNETTE Attending Unavailable ANNALEE HERNÁNDEZ Attending Unavailable ANNALEE HERNÁNDEZ Attending Unavailable AICHHOLZ, ANNETTE Attending Unavailable AICHHOLZ, ANNETTE Attending Unavailable SOHAN EDEN Attending Unavailable AICHHOLZ, ANNETTE Attending Unavailable YUNG NICOLE Attending Unavailable AICHHOLZ, ANNETTE Referring Unavailable AICHHOLZ, ANNETTE Attending Unavailable Allergies Allergy Classification Reported Allergen(s) Allergy Type Date of Onset Reaction(s) Facility (1 source) Lidocaine Drug Allergy 08-30-2013 [facility] Rep[facility] Medications Current Medications Medication Drug Class(es) Dates Sig (Normalized) Sig (Original) aspirin 81 mg delayed release oral tablet (20 sources) Platelet Aggregation Inhibitor, Nonsteroidal Anti-inflammatory Drug Start: 03-13-2024 End: 09-12-2024 take 1 tablet by mouth once daily aspirin 81 MG EC tablet Indications: 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) Take 1 tablet (81 mg) by mouth Daily 90 tablet 1 06/14/2024 09/12/2024 Active Start: 09-12-2023 End: 12-11-2023 take 1 tablet by mouth once daily aspirin 81 MG EC tablet Indications: 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) Take 1 tablet (81 mg) by mouth 1 (one) time each day at the same time 90 tablet 1 09/12/2023 12/11/2023 Active take 1 tablet by gisela once daily aspirin 81 mg EC tablet Take 1 tablet (81 mg) by mouth once daily. 0 Active Baby Aspirin Act cass atorvastatin 40 mg oral tablet (20 sources) HMG-CoA Reductase Inhibitor Start: 03-13-2024 End: 09-12-2024 take 1 tablet by mouth at bedtime atorvastatin (Lipitor) 40 MG tablet Indications: Mixed hyperlipidemia (CMS/HCC) Take 1 tablet (40 mg) by mouth at bedtime 90 tablet 1 06/14/2024 09/12/2024 Active Start: 05-25-2021 End: 12-11-2023 take 1 tablet by mouth once daily atorvastatin (Lipitor) 40 mg tablet Indications: Primary hypertension , Hypercholesteremia , Type 2 diabetes mellitus without complication, without long-term current use of insulin (CMS/HCC) , 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 Take 1 tablet (40 mg) by mouth once daily. 90 tablet 3 10/06/2022 10/06/2023 Active Atorvastatin Agustín cium Active b complex vitamins capsule (4 sources) take 1 capsule by mouth in the morning b complex vitamins capsule Take 1 capsule by mouth in the morning. 0 Active carvedilol 25 mg oral tablet (20 sources) alpha-Adrenergic Marco, beta-Adrenergic Marco Start: 03-13-2024 End: 09-12-2024 take 1 tablet by mouth in the morning carvedilol (Coreg) 25 MG tablet Indications: 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) , Primary hypertension (CMS/HCC) Take 1 tablet (25 mg) by mouth in the morning and 1 tablet (25 mg) in the evening. Take with meals. 180 tablet 1 06/14/2024 09/12/2024 Active Start: 05-25-2021 End: 12-11-2023 take 1 tablet by mouth in the morning carvedilol (Coreg) 25 mg tablet Indications: Primary hypertension , 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 Take 1 tablet (25 mg) by mouth in the morning and 1 tablet (25 mg) before bedtime. 180 tablet 3 10/06/2022 10/06/2023 Active Carvedilol Activ e cetirizine hydrochloride 10 mg oral tablet (5 sources) Histamine-1 Receptor Antagonist End: 10-06-2022 cetirizine (ZyrTEC) 10 mg tablet ZyrTEC Allergy 10 MG Oral Tablet Refills: 0 Active 0 10/06/2022 Discontinued (Therapy completed) ZyrTEC Allergy 1 0 MG Oral Tablet Quantity: 0 Refills: 0 Ordered: 14-Oct-2021 DO Active cyclobenzaprine hydrochloride 5 mg oral tablet (1 [...] mg by mouth Daily 02/29/2024 Active Start: 10-06-2022 take 1 tablet by gisela once daily finasteride (Proscar) 5 mg tablet Indications: Benign prostatic hyperplasia with weak urinary stream Take 1 tablet (5 mg) by mouth once daily. 90 tablet 3 10/06/2022 Active Start: 05-25-2021 End: 12-11-2023 take 1 tablet by mouth in the morning finasteride (Proscar) 5 MG tablet Indications: Benign prostatic hyperplasia with weak urinary stream Take 1 tablet (5 mg) by mouth in the morning. Take 5 mg by mouth in the morning.. 90 tablet 1 09/12/2023 12/11/2023 Active Finasteride Acti ve furosemide 20 mg oral tablet (20 sources) Loop Diuretic Start: 03-13-2024 End: 09-12-2024 take 1 tablet by mouth every other day furosemide (Lasix) 20 MG tablet Indications: Edema of both lower extremities Take 1 tablet (20 mg) by mouth every other day 45 tablet 1 06/14/2024 09/12/2024 Active Start: 09-12-2023 End: 12-11-2023 take 1 [...] 0 07/20/2023 09/12/2023 Discontinued (Reorder) Start: 12-08-2021 End: 11-05-2022 take 1 tablet by mouth once furosemide (Lasix) 20 mg t ablet Indications: Leg swelling Take 1 tablet (20 mg) by mouth if needed (edema). (STOP TAKING IT ONCE LEG SWELLING RESOLVE, IF SWELLING REOCCURS YOU CAN START TAKING AGAIN) 30 tablet 0 10/06/2022 11/05/2022 Active Start: 10-07-2021 take 1 tablet by gisela th once daily Furosemide 20 MG Oral Tablet take 1 tablet by mouth daily as directed Quantity: 30 Refills: 3 Ordered: 07-Oct-2021 Ailyn Baez DO Start : 07-Oct-2021 Active Furosemide Activ e hydroCHLOROthiazide 25 mg oral tablet (20 sources) Thiazide Diuretic Start: 03-13-2024 End: 09-12-2024 take 1 tablet by mouth in the morning hydroCHLOROthiazide (HYDRODiuril) 25 MG tablet Indications: Primary hypertension (CMS/HCC) , Edema of both lower extremities , Essential (primary) hypertension (CMS/HCC) Take 1 tablet (25 mg) by mouth in the morning. 90 tablet 1 06/14/2024 09/12/2024 Active Start: 05-25-2021 End: 12-11-2023 take 1 tablet by mouth in the morning hydroCHLOROthiazide (HYDRODiuril) 25 MG tablet Indications: Primary hypertension (CMS/HCC) , Edema of both lower extremities , Essential (primary) hypertension (CMS/HCC) Take 1 tablet (25 mg) by mouth in the morning. 90 tablet 1 09/12/2023 12/11/2023 Active hydroCHLOROthiaz radha Active loratadine 10 mg oral tablet (18 sources) take 1 tablet by mouth once daily loratadine (Claritin) 10 MG tablet Take 10 mg by mouth Daily OTC Active losartan potassium 100 mg oral tablet (6 sources) Angiotensin 2 Receptor Marco Start: 2023 End: 2023 take 1 tablet by mouth in the morning losartan (Cozaar) 100 MG tablet Indications: Primary hypertension (CMS/HCC) Take 1 tablet (100 mg) by mouth in the morning. 90 tablet 1 09/12/2023 12/11/2023 Active methylPREDNISolone 4 mg oral tablet (1 source) Corticosteroid Start: 2022 methylPREDNISolone 4 MG as directed Orally Once a day for 6 days Aug, Active oxygen (O2) therapy (1 source) Start: 2021 oxygen (O2) therapy 2 L once daily at bedtime. Per nasal cannula 0 09/09/2021 Active polyethylene glycol 3350 88268 mg powder for oral solution (8 sources) Osmotic Laxative Start: 2021 polyethylene glycol (Glycolax) 17 gram/dose powder MIX 17 GRAMS IN 8 OUNCES OF WATER AND DRINK ONCE DAILY 0 09/09/2021 Active Start: 09-09-2021 Polyethylene G lycol 3350 17 GM/SCOOP Oral Powder MIX 17 GRAMS IN 8 OUNCES OF WATER AND DRINK ONCE DAILY. Quantity: 3 Refills: 3 Ordered: 07-Apr-2022 Ailyn Baez DO Start : 09-Sep-2021 Active Potassimin (1 source) Potassimin Activ e microencapsulated potassium chloride 10 meq extended release oral tablet (20 sources) Start: 03-13-2024 End: 09-12-2024 take 1 tablet by mouth once daily as needed potassium chloride CR (Klor-Con M10) 10 MEQ ER tablet Indications: Leg swelling Take 1 tablet (10 mEq) by mouth Daily as needed (when takes lasix medication) Do not crush or chew. 90 tablet 1 06/14/2024 09/12/2024 Active Start: 07-20-2023 End: 12-11-2023 take 1 tablet by mouth once daily as needed potassium chloride CR (Klor-Con M10) 10 MEQ ER tablet Indications: Leg swelling Take 1 tablet (10 mEq) by mouth Daily as needed (when takes lasix medication) Do not crush or chew. 90 tablet 1 09/12/2023 12/11/2023 Active Start: 10-07-2021 End: 11-05-2022 potassium chloride ER (Micro -K) 10 mEq ER capsule Indications: Leg swelling Take 1 capsule (10 mEq) by mouth if needed (edema). 30 capsule 0 10/06/2022 11/05/2022 Active tiZANidine 4 mg oral tablet (1 source) Central alpha-2 Adrenergic Agonist Start: 10-06-2022 End: 10-16-2022 take 1 tablet by mouth every six hours for muscle spasms tiZANidine (Zanaflex) 4 mg tablet Indications: Acute midline low back pain without sciatica Take 1 tablet (4 mg) by mouth every 6 hours if needed for muscle spasms for up to 10 days. 30 tablet 0 10/06/2022 10/16/2022 Active Completed/Discontinued Medications Medication Drug Class(es) Dates [...] Start : 28-Jul-2021 End : 09-Sep-2021 Complete Oxygen (20 sources) Start: 09-09-2021 Oxygen 2 L per nasal cannula at bedtime Quantity: 1 Refills: 0 Ordered: 09-Sep-2021 Ailyn Baez DO Start : 09-Sep-2021 Active oxygen (O2) gas Inhale 2 L/min continuously Wear at night while sleeping Active oxygen (O2) gas Inhale 2 L/min continuously Wear at night while sleeping 0 Active vitamin b12 1 mg oral tablet (20 sources) Vitamin B12 Start: 03-13-2024 End: 06-14-2024 cyanocobalamin (Vitamin B-12 ) 1000 MCG tablet Indications: B12 deficiency 1 tablet every other day 45 tablet 1 03/13/2024 06/14/2024 Discontinued (Therapy completed) Start: 09-12-2023 End: 12-11-2023 take 1 tablet by mouth in the morning cyanocobalamin (Vitamin B-12) 1000 MCG tablet Indications: B12 deficiency Take 1 tablet (1,000 mcg) by mouth in the morning. 90 tablet 1 09/12/2023 12/11/2023 Active take 1 tablet by gisela th once daily cyanocobalamin, vitamin B-12, 5,000 mcg tablet,disintegrating Take 1 tablet by mouth 1 (one) time each day. 0 Active Vitamin B12 Acti ve Problems Active Problems Problem Classification Problem Date Documented Date Episodic/Chronic Cataract (20 sources) Artificial lens present; Translations: [Presence of [...] sources) Coronary atherosclerosis; Translations: [Coronary atherosclerosis of [place] coronary artery] Onset: 08-24-2022 Chronic Diabetes mellitus without complication (20 sources) Type 2 diabetes mellitus without complications; Translations: [Type 2 diabetes mellitus without complication] Onset: 10-06-2022 Resolved: 06-14-2024 Chronic Disorders of lipid metabolism (20 sources) [...] PROTEIN-CALORIE MLNUTRIT] Onset: 08-17-2021 Chronic Nutritional deficiencies (20 sources) Cobalamin deficiency; Translations: [Other B-complex deficiencies] Onset: 08-24-2022 04-25-2023 Episodic Other aftercare (1 source) [facility] (current) use of aspirin; Translations: [RESIDENTIAL CURRENT USE OF ASPIRIN] Onset: 08-25-2021 Episodic Other aftercare (1 source) Other snf (current) drug therapy; Translations: [[employer] CURRENT DRUG THERAPY] Onset: 08-25-2021 Episodic Other circulatory disease (4 sources) Hypotension, unspecified; Translations: [HYPOTENSION UNSPECIFIED] Onset: 08-18-2021 Episodic Other connective tissue disease (13 sources) Swelling of lower limb; Translations: [Swelling of limb] Onset: 08-24-2022 04-25-2023 Episodic Other connective tissue disease (2 sources) Other specified soft tissue disorders; Translations: [Other specified soft tissue disorders] Onset: 08-24-2022 Episodic Other diseases of bladder and urethra (1 source) Neuromuscular dysfunction of bladder, unspecified; Translations: [NEUROMUSCULR DYSFNCTION BLADDER UNS] Onset: 08-17-2021 Chronic Other ear and sense organ disorders (20 sources) Hearing loss; Translations: [Unspecified hearing loss, unspecified ear] Onset: 08-28-2021 04-25-2023 Chronic Other ear and sense organ disorders (20 sources) Bilateral hearing loss; Translations: [Sensorineural hearing loss, unilateral, right ear, with restricted hearing on the contralateral side] Onset: 08-28-2021 04-25-2023 Chronic Other ear and sense organ disorders (20 sources) Asymmetrical sensorineural hearing loss; Translations: [Sensorineural hearing loss, bilateral] Onset: 04-25-2023 04-25-2023 Chronic Other ear and sense organ disorders (20 sources) Sensorineural hearing loss, bilateral; Translations: [Sensorineural hearing loss, bilateral] Onset: 08-28-2021 04-25-2023 Chronic Other ear and sense organ disorders (20 sources) Decreased hearing ; Translations: [Unspecified hearing loss, bilateral] Onset: 09-12-2023 09-12-2023 Chronic Other ear and sense organ disorders (1 source) Sudden idiopathic hearing loss; Translations: [Sudden idiopathic hearing loss, left ear] 09-06-2023 Episodic Other liver diseases (20 sources) Cirrhosis of liver; Translations: [Unspecified cirrhosis [...] Episodic Other nutritional; endocrine; and metabolic disorders (20 sources) Overweight in adulthood with body mass index of 25 or more but less than 30; Translations: [Body Mass Index 29.0-29.9, adult] Onset: 08-09-2023 08-09-2023 Episodic Other screening for suspected conditions (not mental disorders or infectious disease) (6 sources) Abnormal findings on diagnostic imaging of other abdominal regions, including retroperitoneum; Translations: [Patient encounter status] Onset: 08-17-2021 09-10-2024 Episodic Other skin disorders (2 sources) Inflamed seborrheic keratosis; Translations: [Inflamed seborrheic keratosis] 05-16-2024 Episodic Residual codes; unclassified (6 sources) Obstructive sleep apnea syndrome; Translations: [Obstructive sleep apnea (adult)(pediatric)] Chronic Residual codes; unclassified (20 sources) Obstructive sleep apnea of adult; Translations: [Obstructive sleep apnea (adult)(pediatric)] Onset: 08-28-2021 Resolved: 09-10-2024 04-25-2023 Chronic Residual codes; unclassified (1 source) Acquired absence of other specified parts of digestive tract; Translations: [ACQ ABSENCE OTH PART DIGESTV TRACT] Onset: 08-20-2021 Episodic Residual codes; unclassified (1 source) Insomnia, unspecified; Translations: [INSOMNIA UNSPECIFIED] Onset: 08-17-2021 Episodic Residual codes; unclassified (20 sources) Bilateral lower limb edema; Translations: [Localized edema] Onset: 08-24-2022 09-05-2023 Episodic Screening and history of mental [...] te Episodic/Chronic Appendicitis and other appendiceal conditions (20 sources) Unspecified acute appendicitis; Translations: [Appendicitis] Onset: 08-01-2020 Resolved: 09-12-2023 Episodic Diabetes mellitus without complication (20 sources) Prediabetes; Translations: [Impaired glucose tolerance] Onset: 03-18-2021 Resolved: 09-10-2024 Episodic Mood disorders (9 sources) Mood disorders Onset: 06-14-2024 06-14-2024 Other ear and sense organ disorders (20 sources) Tinnitus of left ear; Translations: [Tinnitus, left ear] Onset: 08-28-2021 04-25-2023 Episodic Other ear and sense organ disorders (20 sources) Sudden hearing loss; Translations: [Sudden idiopathic hearing loss, left ear] Onset: 04-27-2023 04-27-2023 Episodic Other gastrointestinal disorders (20 sources) Chronic constipation; Translations: [Constipation, unspecified] Onset: [...] Resolved: 04-07-2022 Episodic Other lower respiratory disease (20 sources) Dyspnea; Translations: [Dyspnea, unspecified] Onset: 08-09-2023 08-09-2023 Episodic Other nervous system disorders (7 sources) Postoperative pain ; Translations: [Other acute postoperative pain] Resolved: 04-07-2022 Episodic Other nervous system disorders (1 source) H/O: respiratory disease; Translations: [Obstructive sleep apnea (adult)(pediatric)] Resolved: 04-07-2022 Episodic Other nervous system disorders (2 sources) Impaired cognition; Translations: [Other symptoms and signs involving cognitive functions and awareness] 04-11-2024 Episodic Other skin disorders (20 sources) Seborrheic keratosis of scalp; Translations: [Other seborrheic keratosis] Onset: 05-14-2024 05-14-2024 Episodic Other upper respiratory infections (20 sources) Acute sinusitis; Translations: [Other acute sinusitis] Onset: 08-09-2023 Resolved: 09-12-2023 08-09-2023 Episodic Peritonitis and intestinal abscess (20 sources) Abdominal abscess; Translations: [Abscess, abdomen] Onset: 08-28-2021 Resolved: 04-07-2022 04-25-2023 Episodic Pleurisy; pneumothorax; pulmonary collapse (20 sources) Pleural effusion; Translations: [Unspecified pleural effusion] Onset: 08-28-2021 04-25-2023 Episodic Residual codes; unclassified (20 sources) Insomnia; Translations: [Insomnia, unspecified] Onset: 08-24-2022 04-25-2023 Episodic Residual codes; unclassified (18 sources) Memory impairment; Translations: [Other amnesia] Onset: 03-13-2024 03-13-2024 Episodic Residual codes; unclassified (2 sources) Family history of dementia; Translations: [Family history of other mental and behavioral disorders] 04-11-2024 Episodic Spondylosis; intervertebral disc disorders; other back problems (1 source) Acute low back pain; Translations: [Acute midline low back pain without sciatica] 10-06-2022 Episodic Syncope (20 sources) Tussive syncope; Translations: [Syncope and collapse] Onset: 08-28-2021 04-25-2023 Episodic Unclassified (1 source) Right lumbar pain M54.50 Unclassified (1 source) Low back pain, unspecified; Translations: [Low back pain, unspecified] Onset: 10-06-2022 Unclassified (1 source) Onset: 10-06-2022 10-06-2022 Results Test Name Value Interpretation Reference Range Facility HbA1c (Bld) [Mass fraction]o n 09-10-2024 Interpretation and review of laboratory results Abnormal [facility] - Hematology and Cell countson 09-10-2024 HbA1c (Bld) [Mass fraction] 6.20 % [facility] No Panel Informationon 05-16 [facility] Office Visiton 04-16-2024 Follow-up visit [id number] Christiana Palomino 1935 M Date Provider Department Center 04/16/2024 Rich-BEATRIZ ARAMBULA BH CARD [facility] No family history on file Level of Service:50656 [place] OFFICE/OUTPATIENT ESTABLISHED LOW MDM 20 MIN Normal [facility] Office Visiton 04-26-2023 Follow-up visit [id number] Christiana Palomino 1935 M Date Provider Department Center 04/26/2023 RAMSEY CARLIN MARIELLA [facility] No family history on file Level of Service:38020 [place] OFFICE/OUTPATIENT ESTABLISHED LOW MDM 20-29 MIN Normal [facility] Office Visit (Family Medicin e)on 04-07-2022 Follow-up [...] for: 07Apr2022 Albumin, Urine Spot; Status:Active; Requested for:[id number]; Complete Blood Count + Differential; Status:Active; Requested for:[id number]; Comprehensive Metabolic Panel; Status:Active; Requested for:[id number]; Hemoglobin A1C; Status:Active; Requested for:[id number]; Lipid Panel; Status:Active; Requested for:[id number]; Magnesium, Serum; Status:Active; Requested for:[id number]; TSH WITH REFLEX TO FREE T4 IF ABNORMAL; Status:Active; Requested for:[id number]; COPD (chronic obstructive pulmonary disease), Leg swelling Cardiology - General Referral Evaluation and Treatment Evaluate AND Treat dr michael justin Status: Active Requested for: [id number] AMA Intake Activity Log Entry by Donya [...] disease) (496) (J44.9) 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 (414.01) (I25.10) HTN (hypertension) (401.9) (I10) Hypercholesteremia (272.0) (E78.00) Insomnia (780.52) (more content not included)... Normal [facility] BNPon 12-08-2021 Natriuretic peptide B (Bld) [Mass/Vol] 63 pg/mL Normal 0 - 99 [facility] Comment on above: Result Comment: . <1 00 pg/mL - Heart failure unlikely 100-299 pg/mL - Intermediate probability of acute heart . failure exacerbation. Correlate with clinical . context and patient history. >=300 pg/mL - Heart Failure likely. Correlate with clinical . context and patient history. BNP testing is performed using different testing methodology at [facility] than at other [facility]. Direct result comparisons should only be made within the same method. Performed By: #### B NP2 #### [facility] [address] [place] [address] CBC AND DIFFERENTIALon 12-08 % AUTOMATED IMMATURE GRAN 0.3 % Normal 0.0 - 0.9 [facility] Comment on above: Result Comment: Mamie ture Granulocyte Count (IG) includes promyelocytes, myelocytes and metamyelocytes but does not include bands. Percent differential counts (%) should be interpreted in the context of the absolute cell counts (cells/L). Performed By: #### C BCDF #### [address] [address] Basophils (Bld) [#/Vol] 0.09 10*3/uL Normal 0.00 - 0.10 [facility] Comment on above: Performed By: #### C BCDF #### [address] [address] Basophils/100 WBC (Bld) 1.3 % Normal 0.0 - 2.0 [facility] Comment on above: Performed By: #### C BCDF #### [address] [address] Eosinophils (Bld) [#/Vol] 0.39 10*3/uL Normal 0.00 - 0.40 [facility] Comment on above: Performed By: #### C BCDF #### [address] [address] Eosinophils/100 WBC (Bld) 5.6 % Normal 0.0 - 6.0 [facility] Comment on above: Performed By: #### C BCDF #### [address] [address] Erythrocyte distribution width (RBC) [Ratio] 13.2 % Normal 11.5 - 14.5 [facility] Comment on above: Performed By: #### C BCDF #### [address] [address] Hematocrit (Bld) [Volume fraction] 42.3 % Normal 41.0 - 52.0 [facility] Comment on above: Performed By: #### C BCDF #### [address] [address] Hemoglobin (Bld) [Mass/Vol] 13.2 g/dL Low 13.5 - 17.5 [facility] Comment on above: Performed By: #### C BCDF #### [address] [address] Lymphocytes (Bld) [#/Vol] 1.98 10*3/uL Normal 0.80 - 3.00 [facility] Comment on above: Performed By: #### C BCDF #### [address] [address] Lymphocytes/100 WBC (Bld) 28.4 % Normal 13.0 - 44.0 [facility] Comment on above: Performed By: #### C BCDF #### [address] [address] MCHC (RBC) [Mass/Vol] 31.2 g/dL Low 32.0 - 36.0 [facility] Comment on above: Performed By: #### C BCDF #### [address] [address] MCV (RBC) [Entitic vol] 95 fL Normal 80 - 100 [facility] Comment on above: Performed By: #### C BCDF #### [address] [address] Monocytes (Bld) [#/Vol] 0.69 10*3/uL Normal 0.05 - 0.80 [facility] Comment on above: Performed By: #### C BCDF #### [address] [address] Monocytes/100 WBC (Bld) 9.9 % Normal 2.0 - 10.0 [facility] Comment on above: Performed By: #### C BCDF #### [address] [address] Neutrophils (Bld) [#/Vol] 3.79 10*3/uL Normal 1.60 - 5.50 [facility] Comment on above: Performed By: #### C BCDF #### [address] [address] Neutrophils/100 WBC (Bld) 54.5 % Normal 40.0 - 80.0 [facility] Comment on above: Performed By: #### C BCDF #### [address] [address] NUCLEATED RBC 0.0 /100 WBC Normal 0.0 - 0.0 [facility] Comment on above: Performed By: #### C BCDF #### [address] [address] Platelets (Bld) [#/Vol] 148 10*3/uL Low 150 - 450 [facility] Comment on above: Performed By: #### C BCDF #### [address] [address] RBC 4.43 x10E12/L Low 4.50 - 5.90 [facility] Comment on above: Performed By: #### C BCDF #### [address] [address] WBC (Bld) [#/Vol] 7.0 10*3/uL Normal 4.4 - 11.3 [facility] Comment on above: Performed By: #### C BCDF #### [address] [address] CHEST 2 VIEW PA AND LATon CHEST 2 VIEW PA AND LAT Patient Name: FIDEL PALOMINO STUDY: CHEST 2 VIEW PA AND LAT; 12/08/2021 9:30 am INDICATION: for b/l effusion size J90: Pleural effusion. COMPARISON: None. ACCESSION NUMBER(S): [id number] ORDERING CLINICIAN: NARENDRA NEWTON FINDINGS: CHEST/LUNGS: The [...] Electronically signed by: MISSY ABREU MD Normal [facility] COMPREHENSIVE PANELon 2021 Albumin [Mass/Vol] 3.9 g/dL Normal 3.4 - 5.0 [facility] Comment on above: Performed By: #### C MP #### [address] [address] ALP [Catalytic activity/Vol] 106 U/L Normal 33 - 136 [facility] Comment on above: Performed By: #### C MP #### [address] [address] ALT [Catalytic activity/Vol] 18 U/L Normal 10 - 52 [facility] Comment on above: Result Comment: Anabelle ents treated with Sulfasalazine may generate falsely decreased results for ALT. Performed By: #### C MP #### [address] [address] Anion gap [Moles/Vol] 11 mmol/L Normal 10 - 20 [facility] Comment on above: Performed By: #### C MP #### [address] [address] AST [Catalytic activity/Vol] 19 U/L Normal 9 - 39 [facility] Comment on above: Performed By: #### C MP #### [address] [address] Bilirubin [Mass/Vol] 0.5 mg/dL Normal 0.0 - 1.2 [facility] Comment on above: Performed By: #### C MP #### [address] [address] Calcium [Mass/Vol] 9.3 mg/dL Normal 8.6 - 10.3 [facility] Comment on above: Performed By: #### C MP #### [address] [address] Chloride [Moles/Vol] 98 mmol/L Normal 98 - 107 [facility] Comment on above: Performed By: #### C MP #### [address] [address] Creatinine [Mass/Vol] 0.75 mg/dL Normal 0.50 - 1.30 [facility] Comment on above: Performed By: #### C MP #### [address] [address] GFR/1.73 sq M.predicted among non-blacks MDRD (S/P/Bld) [Vol rate/Area] 89 mL/min/{1.73_m2} Normal >90 [facility] Comment on above: Result Comment: CALC ULATIONS OF ESTIMATED GFR ARE PERFORMED USING THE 2020 CKD-EPI STUDY REFIT EQUATION WITHOUT THE RACE VARIABLE FOR THE IDMS-TRACEABLE CREATININE METHODS. https://jasn.asnjournals.org/content//ASN.10242100 88 Performed By: #### C MP #### [address] [address] Glucose [Mass/Vol] 130 mg/dL High 74 - 99 [facility] Comment on above: Performed By: #### C MP #### [address] [address] HCO3 (Bld) [Moles/Vol] 32 mmol/L Normal 21 - 32 [facility] Comment on above: Performed By: #### C MP #### [address] [address] Potassium [Moles/Vol] 3.6 mmol/L Normal 3.5 - 5.3 [facility] Comment on above: Performed By: #### C MP #### [address] [address] Protein [Mass/Vol] 7.3 g/dL Normal 6.4 - 8.2 [facility] Comment on above: Performed By: #### C MP #### [address] [address] Sodium [Moles/Vol] 137 mmol/L Normal 136 - 145 [facility] Comment on above: Performed By: #### C MP #### [address] [address] Urea nitrogen [Mass/Vol] 20 mg/dL Normal 6 - 23 [facility] Comment on above: Performed By: #### C MP #### [address] [address] Complete Blood Count + Diffe nikko 12-08-2021 Basophils/100 WBC (Bld) 1.3 % 0.0 - 2.0 [facility] [place] [address] Work Phone: Erythrocyte distribution width (RBC) [Ratio] 13.2 % See Below [place] [address] Work Phone: Comment on above: Reference Range: 11. 5 - 14.5 Hematocrit (Bld) [Volume fraction] 42.3 % See Below [place] [address] Work Phone: Comment on above: Reference Range: 41. 0 - 52.0 Hemoglobin (Bld) [Mass/Vol] 13.2 g/dL below low threshold See Below [place] [address] Work Phone: Comment on above: Reference Range: 13. 5 - 17.5 Lymphocytes/100 WBC (Bld) 28.4 % See Below [place] [address] Work Phone: Comment on above: Reference Range: 13. 0 - 44.0 MCHC (RBC) [Mass/Vol] 31.2 g/dL below low threshold See Below [place] [address] Work Phone: Comment on above: Reference Range: 32. 0 - 36.0 MCV (RBC) [Entitic vol] 95 fL 80 - 100 [place] [address] Work Phone: Monocytes/100 WBC (Bld) 9.9 % 2.0 - 10.0 [place] [address] Work Phone: Neutrophils/100 WBC (Bld) 54.5 % See Below [place] [address] Work Phone: Comment on above: Reference Range: 40. 0 - 80.0 Platelets (Bld) [#/Vol] 148 10*3/uL below low threshold 150 - 450 [facility] [place] [address] Work Phone: RBC (Bld) [#/Vol] 4.43 {x10E12/L} below low threshold See Below [facility] [place] [address] Work Phone: Comment on above: Reference Range: 4.5 0 - 5.90 WBC (Bld) [#/Vol] 7.0 10*3/uL 4.4 - 11.3 -[place] [address] Work Phone: Complete Blood Count + Differential 0.09 {x10E9/L} See Below [facility] [place] [address] Work Phone: Comment on above: Reference Range: 0.0 0 - 0.10 Complete Blood Count + Differential 0.39 {x10E9/L} See Below [facility] [place] [address] Work Phone: Comment on above: Reference Range: 0.0 0 - 0.40 Complete Blood Count + Differential 0.69 {x10E9/L} See Below [facility] [place] [address] Work Phone: Comment on above: Reference Range: 0.0 5 - 0.80 Complete Blood Count + Differential 1.98 {x10E9/L} See Below [facility] [place] [address] Work Phone: Comment on above: Reference Range: 0.8 0 - 3.00 Complete Blood Count + Differential 3.79 {x10E9/L} See Below [facility] [place] [address] Work Phone: Comment on above: Reference Range: 1.6 0 - 5.50 Complete Blood Count + Differential 5.6 % 0.0 - 6.0 [facility] [place] [address] Work Phone: Complete Blood Count + Differential 0.3 % 0.0 - 0.9 [facility] [place] [address] Work Phone: Comment on above: Immature Granulocyte [...] pulmonary disease); CHELSEA = N; Sent To: [email or web address]; Last Updated By: [employer]; 12/08/2021 10:32:38 AM Brain Natriuretic Peptide BNP; [...] ABG; Status:Hold For - Scheduling; Requested for:08Dec2021; Perform:[facility]; Due:08Mar2022;Ordered ; For:COPD (chronic obstructive pulmonary disease); Ordered By:Narendra Newton; Comprehensive Metabolic Panel; Status:Active; Requested for:08Dec2021; Perform:Lab Services - Lab To Draw (Blood Test); Due:08Mar2022;Ordered ; For:COPD (chronic obstructive pulmonary disease); Ordered By:Narendra Newton; Cardiology - General Referral Evaluation and Treatment Evaluate AND Treat Status: Hold For - Scheduling Requested for: [id number] Ordered;For: COPD (chronic obstructive pulmonary disease), Leg swelling; Ordered By: Narendra Newton Performed: Order Comments: rafy [place] Due: [id number] Renew: Potassium Chloride ER 10 MEQ Oral Capsule Extended Release; TAKE 1 CAPSULE BY MOUTH EVERY DAY Rx By: Narendra Newton; Dispense: 30 Days ; #:30 Capsule; Refill: 3;For: HTN (hypertension); CHELSEA = N; Sent To: [facility] #72; Msg to Pharmacy: on days when you take lasix; Last Updated By: System, [email or web address]; 12/08/2021 10:33:53 AM Echocardiogram; Status:Hold For - Scheduling; Requested for:[id number]; Perform[place] / [facility] ([place]); Due:[id number];Ordered ; For:Shortness of breath at rest; Ordered [...] sleep study performed in the past at [facility] with use of a CPAP machine, however he could not tolerate wearing the sleep mask. Due to this, he is currently on 2L of supplementary oxygen while sleeping. He is able to perform all activities of daily living. He complains of an intermittent dry cough . He takes day time naps. He has a history of acute appendicitis and underwent appendectomy at [facility] in 07/2021 which was complicated by intra-abdominal infection leading to drainage at [facility] on August 25, 2021. . 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 Assessment; 86 year old male with medical history of lower extremity edema and obstructive sleep apnea, not on CPAP. He has a history of acute appendicitis and underw (more content not included)... Normal [facility] - Chemistry and C hemistry - challengeon 12-08-2021 Albumin BCP dye [Mass/Vol] 3.9 g/dL 3.4 - 5.0 -Pulmonary [facility] 170 Work Phone: ALP [Catalytic activity/Vol] 106 U/L 33 - 136 -Pulmonary [facility] 170 Work Phone: ALT With P-5'-P [Catalytic activity/Vol] 18 U/L 10 - 52 [facility] 170 Work Phone: Comment on above: Patients treated wit h Sulfasalazine may generate falsely decreased results for ALT. Anion gap [Moles/Vol] 11 mmol/L 10 - 20 -Pulmonary [facility] 170 Work Phone: AST With P-5'-P [Catalytic activity/Vol] 19 U/L 9 - 39 [facility] [place] [address] Work Phone: Bilirubin [Mass/Vol] 0.5 mg/dL 0.0 - 1.2 -Pulmonary [place] [address] Work Phone: Calcium [Mass/Vol] 9.3 mg/dL 8.6 - 10.3 -[facility] [place] [address] Work Phone: Chloride [Moles/Vol] 98 mmol/L 98 - 107 -Pulmonary [place] [address] Work Phone: CO2 [Moles/Vol] 32 mmol/L 21 - 32 -Pulmon brianna [place] [address] Work Phone: Creatinine [Mass/Vol] 0.75 mg/dL See Below [facility] [place] [address] Work Phone: Comment on above: Reference Range: 0.5 0 - 1.30 Glucose [Mass/Vol] 130 mg/dL above high threshold 74 - 99 -Pulmonary [place] [address] Work Phone: Potassium [Moles/Vol] 3.6 mmol/L 3.5 - 5.3 -Pulmonary [place] [address] Work Phone: Protein [Mass/Vol] 7.3 g/dL 6.4 - 8.2 -Pul monary [place] [address] Work Phone: Sodium [Moles/Vol] 137 mmol/L 136 - 145 -Pul monary [place] [address] Work Phone: Urea nitrogen [Mass/Vol] 20 mg/dL 6 - 23 -Pulmonary [place] [address] Work Phone: No Panel Informationon 12-08 89 {mL/min/1.73m2} >90 -Pul monary [facility] 170 Work Phone: Comment on above: CALCULATIONS OF CHECO MATED GFR ARE PERFORMED USING THE 2020 CKD-EPI STUDY REFIT EQUATION WITHOUT THE RACE VARIABLE FOR THE IDMS-TRACEABLE CREATININE METHODS.https://jasn.asnjournals.org/content//ASN. 8196167125 63 pg/mL 0 - 99 [facility] 170 Work Phone: Comment on above: . <100 pg/mL - Heart failure [id number] pg/mL - Intermediate probability of acute heart. failure exacerbation. Correlate with clinical. context and patient history. >=300 pg/mL - Heart Failure likely. Correlate with clinical. context and patient history.BNP testing is performed using different testing methodology at [facility] than at other [facility]. Direct result comparisons should only be made within the same method. Radiologyon 12-08-2021 XR Chest 2 Views Please click on the link to view the study images Normal [facility] 170 Work Phone: Tobacco Screening.on 022 Fall risk assessment a) No falls within the last year [facility] 170 Work Phone: Tobacco use status CPHS b) No [facility] [place] [address] Work Phone: Consult (Pulmonary Medicine) on 10-14-2021 [...] sleep study performed in the past at [facility] with use of a CPAP machine, however he could not tolerate wearing the sleep mask. Due to this, he is currently on 2L of supplementary oxygen while sleeping. He is able to perform all activities of daily living. He complains of an intermittent dry cough . He takes day time naps. He has a history of acute appendicitis and underwent appendectomy at [facility] in 07/2021 which was complicated by intra-abdominal infection leading to drainage at [facility] on August 25, 2021. . 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 During that hospitalization, he had a CT chest which shows bibasilar atelectasis associated with bilateral pleural effusion, right more than left. He was also found to be hypoxic at night over there leading to sleep study at [facility] which showed obstructive sleep apnea, however was [...] sleep study records and discharge summary from [facility]. We will get his CT chest uploaded on PACS Follow up in pulmonary clinic in 3 weeks Patient understands the importance of follow up with PMD for health care maintenance and general medical conditions. This note was partially generated using [employer] voice recognition and there may be incorrect [...] disease) (496) (J44.9) 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 (414.01) (I25.10) HTN [...] history of (more content not included)... Normal [employer] Tobacco Screening.on 022 Fall risk assessment a) No falls within the last year [facility]-Pulmonary Medicine-Patel zarate [facility] 170 Work Phone: Tobacco use status [facility] b) No -Pulmonary Medicine-Patel zarate [facility] 170 Work Phone: Medicare Annual Wellness Vis [...] disease) (496) (J44.9) 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 (414.01) (I25.10) HTN [...] of Fami (more content not included)... Normal [facility] Tobacco Screening.on 022 Adult depression screening assessment No [facility] Phone: Fall risk assessment a) No falls within the last year [facility] Phone: Tobacco use status CPHS b) No [facility] Phone: Tobacco Screening. Large [facility] [employer] [place] Phone: Progress Noteson 09-21-2021 Production Machinist Authentication Interface Message Text Patient was identified by name and date of . Patient at risk for falls:No Falls Risk protocol implemented: N/A Normal [facility] [employer] Telephone Encounteron 2021 Production Machinist Authentication Interface Message Text Called and spoke to regarding patient's drainage. stated that drainage is negligible and immeasurable above the amount she instills for a flush. She stated she will track drainage for upcoming appointment. 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 Currently, the condition is stable. There are no changes in medication management. Other planned treatment includes exercise program and weight loss program. The plan was discussed with the patient. By signing my name below, I, Sahra richard, attest that this documentation has been prepared [...] to establish care. Previous Dr. Seaman in [facility] last seen 08/2021. He was recently released from [facility] on 08/28/2021 DX with infection from [...] no palpitatio (more content not included)... Normal [employer] Tobacco Screening.on 022 Adult depression screening assessment No [facility] Phone: Fall risk assessment a) No falls within the last year [facility] Phone: Tobacco use status CPHS b) No [facility] Phone: Tobacco Screening. Pediatric [facility] Phone: Telephone Encounteron 2021 Production Machinist Authentication Interface Message Text Notified Rubi from [facility] that Dr. Guerrero is willing to be the attending MD for home care. Normal [facility] 2021 Production Machinist Authentication Interface Message Text Situation: Speak with Provider, Question about following provider Background: Rubi from [facility] asked if Dr. Guerrero would follow patient for homecare. Rubi stated that Dr. Bhat would follow but she is a fellow and they need her attending as well. Assessment: n/a Recommendation: Please call Rubi at [phone] Normal The [facility] [place] Discharge Planning Noteon Production Machinist Authentication Interface Message Text CM called and [...] once she has accepting facilities. NEAL Recinos, nylon hot wire cutter -Care Coordination Department Normal [facility] Consultson 08-28-2021 Production Machinist Authentication Interface Message Text Attestation signed by [...] file. Chief Complaint/Reason for Consult: Antibiotic abstract [place]/Hospital Course: This is a 86 year old year old male with history of HTN who presented to [facility] 08/25 as a transfer from [facility] for intra-abdominal fluid collection. Patient was recently hospitalized at [facility] 07/28-08/17 for abdominal pain s/p appendectomy c/b ileus. He was discharged home feeling well. He then developed dizziness and presyncope. He went back to [facility] ED and then sent him home. Since he continued to feel unwell, he then went to [facility] ED. They performed a CT abdomen/pelvis that [...] mg Oral Daily 81 mg at 08/28/21 0801 * atorvastatin (LIPITOR) tablet 40 mg Oral [...] * Influenza, Injectable, MDCK, Preservative Free, Quadrivalent (ZZW=726) 05/07/2020, 06/23/2021 * Moderna SARS-COV-2 (COVID-19) vaccine, mRNA, spike protein, LNP, preservative free, 100 mcg or 50 mcg dose (HKG=616) 09/02/2020, 09/30/2020, 06/09/2021 REVIEW OF SYSTEMS: 10 point ROS performed which is otherwise negative unless noted in HPI. PHYSICAL EXAMINATION: Vital sign ranges over the past 24 hours (retrieved 08/28/2021 at 11:02 AM): Tmax (24 hours): 98.6 ???F (37 ???C) Pulse Av.8 Min: 67 Max: 95 Systolic (24hrs), Av , Min:100 , Max:156 Diastolic (24hrs (more content not included)... Normal [facility] Progress Noteson 08-28-2021 Production Machinist Authentication Interface Message Text CASE MANAGEMENT CM received VM from Christina at [phone], intake at [facility] regarding name of patient's PCP. CM checked charted, no name was available. CM contacted patient's who provided physician name of Pilo Baez out of [place], [place]. Patient has appointment with Dr. Baez 09/09/21. Patient's also stated [facility] contacted her and she provided the same PCP information for them as well. CM called Christina at [facility], however, she was not available at this time, CM left a VM pertaining to the new PCP information. Tavo DUKEN, RN Inpatient Identifier HorseBench Mechanic: [phone] ([phone]) Normal [facility] [employer] [facility] Production Machinist Authentication Interface Message Text CASE MANAGEMENT CM aware from prior CM's note, patient needs home PT/OT arranged. Patient's spouse accepted [facility] for HHC. This CM contacted [facility] service at [phone] or [phone]. CM spoke to Christina at intake and faxed necessary notes to [phone]. [facility] to contact this CM tomorrow morning. Tavo DE JESUS, RN Inpatient Identifier HorseBench Mechanic: [phone] ([phone]) Normal [facility] [employer] [facility] Production Machinist Authentication Interface Message Text [facility] [employer] [facility] Pulmonary, Critical Care, AND Sleep Medicine [...] ???C) Oral 85 24 98 % CPAP 08/27/210 -- -- -- 67 23 97 % CPAP 08/27/212299 124/75 -- -- 73 23 96 % [...] 149 25 1.16 7.6 08/26/21 0431 1.8 08/26/21430 4.7 08/26/21430 137 3.8 89 32 20 [...] 4.9 1.6 0.20 0.7 159 57 27 08/26/211 4.6 1.5 0.20 0.6 173 77 39 [...] Pulmonary, Critical Care, AND Sleep Medicine [facility] [id number] Normal [facility] [employer] [facility] BASIC METABOLIC PANELon 08-02 Anion gap [Moles/Vol] 11 mmol/L Normal 10-20 [facility] Comment on above: Performed By: #### L IP, MG, HEPATIC, CH8 #### [facility] [address] [place] [address], Calcium [Mass/Vol] 7.6 mg/dL Low 8.4-10.4 [facility] Comment on above: Performed By: #### L IP, MG, HEPATIC, CH8 #### [facility] [address] [place] [address], Chloride [Moles/Vol] 94 mmol/L Low 97-111 [facility] Comment on above: Performed By: #### L IP, MG, HEPATIC, CH8 #### [facility] [address] [place] [address], CO2 [Moles/Vol] 33 mmol/L High 21-30 [facility] Comment on above: Performed By: #### L IP, MG, HEPATIC, CH8 #### [facility] [address] [place] [address], Creatinine [Mass/Vol] 1.16 mg/dL Normal 0.80-1.30 [facility] Comment on above: Performed By: #### L IP, MG, HEPATIC, CH8 #### [facility] [address] [place] [address], ESTIMATED GFR (CKD-EPI) 58 mL/min/1.73sqm Low >=60 [facility] Comment on above: Performed By: #### L IP, MG, HEPATIC, CH8 #### [facility] [address] [place] [address], Glucose [Mass/Vol] 149 mg/dL High 80-116 [facility] Comment on above: Performed By: #### L IP, MG, HEPATIC, CH8 #### S [facility] [address] [place] [address], Potassium [Moles/Vol] 4.0 mmol/L Normal 3.3-5.3 [facility] Comment on above: Performed By: #### L IP, MG, HEPATIC, CH8 #### [facility] [address] [place] [address], Sodium [Moles/Vol] 134 mmol/L Low 135-148 [facility] Comment on above: Performed By: #### L IP, MG, HEPATIC, CH8 #### [facility] [address] [place] [address], Urea nitrogen [Mass/Vol] 25 mg/dL High 8-22 [facility] Comment on above: Performed By: #### L IP, MG, HEPATIC, CH8 #### [facility] [address] [place] [address], CBC WITH DIFFERENTIALon 08-02 Basophils (Bld) [#/Vol] 0.08 10*3/uL Normal 0.00-0.20 [facility] Comment on above: Performed By: #### C BC #### [facility] [address] [place] [address], Basophils/100 WBC (Bld) 0.9 % Normal <=1.9 [facility] Comment on above: Performed By: #### C BC #### [facility] [place] [facility] [address] [place], [place], Eosinophils (Bld) [#/Vol] 0.25 10*3/uL Normal 0.00-0.70 [facility] Comment on above: Performed By: #### C BC #### S PATHOLOGY LABORATORY [address] [place] [address], Eosinophils/100 WBC (Bld) 2.7 % Normal 0.1-4.0 [facility] Comment on above: Performed By: #### C BC #### [facility] [address] [place], [place], Erythrocyte distribution width (RBC) [Ratio] 13.8 % Normal 11.5-14.5 [facility] Comment on above: Performed By: #### C BC #### [facility] [address] [place], [place], Hematocrit (Bld) [Volume fraction] 27.5 % Low 41.0-53.0 [facility] Comment on above: Performed By: #### C BC #### [facility] [address] [place], [place], Hemoglobin (Bld) [Mass/Vol] 9.2 g/dL Low 13.9-16.3 [facility] Comment on above: Performed By: #### C BC #### [facility] [address] [place] [address], Lymphocytes (Bld) [#/Vol] 0.92 10*3/uL Low 1.00-4.80 [facility] Comment on above: Performed By: #### C BC #### [facility] [address] [place], [place], Lymphocytes/100 WBC (Bld) 10.1 % Low 24.0-44.0 [facility] Comment on above: Performed By: #### C BC #### [facility] [address] [place] [address], MCH (RBC) [Entitic mass] 29.4 pg Normal 26.0-34.0 [facility] Comment on above: Performed By: #### C BC #### [facility] [address] [place], [place], MCHC (RBC) [Mass/Vol] 33.3 g/dL Normal 32.0-35.9 [facility] Comment on above: Performed By: #### C BC #### [facility] [address] [place], [place], MCV (RBC) [Entitic vol] 88 fL Normal 80-100 [facility] Comment on above: Performed By: #### C BC #### [facility] [address] [place], [place], MONOCYTE DISTRIBUTION WIDTH Normal [facility] Comment on above: Performed By: #### C BC #### [facility] [address] [place], [place], Monocytes (Bld) [#/Vol] 0.87 10*3/uL Normal 0.20-1.00 [facility] Comment on above: Performed By: #### C BC #### [facility] [address] [place], [place], Monocytes/100 WBC (Bld) 9.5 % Normal 2.0-11.0 [facility] Comment on above: Performed By: #### C BC #### [facility] [address] [place] [address], Neutrophils (Bld) [#/Vol] 7.00 10*3/uL Normal 1.50-8.00 [facility] Comment on above: Performed By: #### C BC #### [facility] [address] [place] [address], Neutrophils/100 WBC (Bld) 76.7 % High 31.0-76.0 [facility] Comment on above: Performed By: #### C BC #### [facility] [address] [place] [address], Platelet mean volume (Bld) [Entitic vol] 7.3 fL Low 7.5-11.2 [facility] Comment on above: Performed By: #### C BC #### [facility] [address] [place] [address], Platelets (Bld) [#/Vol] 255 10*3/uL Normal 150-400 [facility] Comment on above: Performed By: #### C BC #### [facility] [address] [place], [place], RBC (Bld) [#/Vol] 3.11 10*6/uL Low 4.50-5.90 [facility] Comment on above: Performed By: #### C BC #### [facility] [address] [place] [address] [place], WBC (Bld) [#/Vol] 9.1 10*3/uL Normal 4.5-11.5 [facility] [employer] [facility] Comment on above: Performed By: #### C BC #### [facility] [address] [place], [place], CERULOPLASMINon 08-27-2021 CERU 23 mg/dL Normal 20-52 [facility] [employer] [facility] Comment on above: Performed By: #### C BC #### [facility] [address] [place], [place], Care Plan Noteon 08-27-2021 Production Machinist Authentication Interface Message Text Problem: Infection: Goal: [...] discharge process (continuous) Note: Patient's updated on days. Problem: Alteration in Respiratory Status: Goal: Achieve Optimal Respiratory Status with Minimal Ventilatory/Oxygen Support Outcome: Progressing Intervention: Implement Oxygen Therapy (Adult) Procedure (continuous) Note: 2L NC especially when sleeping. Intervention: Monitor pulse ox (per order) Note: Continuous pulse ox monitoring. Normal [facility] FERRITINon 08-27-2021 ERIC 416.1 ng/mL High 11.5-300.0 [facility] Comment on above: Performed By: #### C BC #### [facility] [address] [place] [address], FULL LIPID PROFILEon 022 Cholesterol [Mass/Vol] 60 mg/dL Normal <200 [facility] Comment on above: Performed By: #### L IP, MG, HEPATIC, CH8 #### S [facility] LAB[facility]ORY [address] [place] [address], Cholesterol in LDL [Mass/Vol] 38 mg/dL Normal <111 [facility] Comment on above: Performed By: #### L IP, MG, HEPATIC, CH8 #### [facility] [address] [place] [address], Cholesterol.total/C holesterol in HDL [Mass ratio] 3.53 {ratio} Normal <5.00 [facility] Comment on above: Performed By: #### L IP, MG, HEPATIC, CH8 #### [facility] [address] [place] [address], HDL CHOL 17 mg/dL Low >44 [facility] Comment on above: Performed By: #### L IP, MG, HEPATIC, CH8 #### [facility] [address] [place] [address], LDL/HDL 2.24 Normal <3.57 [facility] Comment on above: Performed By: #### L IP, MG, HEPATIC, CH8 #### [facility] [address] [place] [address], NON-HDL CHOLESTEROL 43 mg/dL Normal <130 [facility] Comment on above: Performed By: #### L IP, MG, HEPATIC, CH8 #### [facility] [address] [place] [address], Triglyceride [Mass/Vol] 42 mg/dL Normal <151 [facility] Comment on above: Performed By: #### L IP, MG, HEPATIC, CH8 #### [facility] [address] [place] [address], HEMOGLOBIN A1Con 08-27-2021 Glucose [Mass/Vol] 146 mg/dL Normal [facility] Comment on above: Order Comment: HbA1c of 5.7-6.4% have increased risk for diabetes and CV(Source :ADA 2014 Standard of Medical Care in Diabetes) Performed By: #### L IP, MG, HEPATIC, CH8 #### [facility] [address] [place] [address], HbA1c (Bld) [Mass fraction] 6.7 % High 4.0-5.6 [facility] Comment on above: Order Comment: HbA1c of 5.7-6.4% have increased risk for diabetes and CV(Source :ADA 2014 Standard of Medical Care in Diabetes) Performed By: #### L IP, MG, HEPATIC, CH8 #### [facility] [address] [place] [address], HEPATIC FUNCTION PANELon Albumin [Mass/Vol] 1.6 g/dL Low 3.4-5.1 [facility] Comment on above: Performed By: #### L IP, MG, HEPATIC, CH8 #### [facility] [address] [place] [address], ALK 159 IU/L Normal 40-200 [facility] Comment on above: Performed By: #### L IP, MG, HEPATIC, CH8 #### [facility] [address] [place] [address], ALT [Catalytic activity/Vol] 57 U/L High 7-40 [facility] Comment on above: Performed By: #### L IP, MG, HEPATIC, CH8 #### [facility] [address] [place] [address], AST [Catalytic activity/Vol] 27 U/L Normal 7-40 [facility] Comment on above: Performed By: #### L IP, MG, HEPATIC, CH8 #### [facility] [address] [place] [address], Bilirubin [Mass/Vol] 0.7 mg/dL Normal 0.1-1.5 [facility] Comment on above: Performed By: #### L IP, MG, HEPATIC, CH8 #### [facility] [address] [place] [address], Bilirubin.direct [Mass/Vol] 0.20 mg/dL Normal 0.10-0.30 [facility] Comment on above: Performed By: #### L IP, MG, HEPATIC, CH8 #### [facility] [address] [place] [address], Protein [Mass/Vol] 4.9 g/dL Low 5.7-8.1 [facility] Comment on above: Performed By: #### L IP, MG, HEPATIC, CH8 #### [facility] [address] [place] [address], HEPATITIS B SURFACE ANTIBODY on 08-27-2021 ANTI-HBS < 3.1 Normal [facility] Comment on above: Order Comment: Nonre active: Samples < 7.5 mIU/mL Reactive: Samples >/= 10.0 mIU/mL The accepted criteria for immunity to HBV is anti-HBs activity >/= 10 mIU/mL, as defined by the WHO International Reference Preparation. Performed By: #### A NTI-HBS, HBSAG #### [facility] [address] [place] [address], HEPATITIS B SURFACE ANTIGENo n 08-27-2021 HBSAG Non-Reactive Normal Non-Reactive [facility] Comment on above: Performed By: #### A NTI-HBS, HBSAG #### [facility] [address] [place] [address], HEPATITIS C ANTIBODYon 08-27 HCV Non-Reactive Normal Nonreactive [facility] Comment on above: Performed By: #### C BC #### [facility] [address] [place] [address], IRON AND TIBCon 08-27-2021 % SAT CORRECT PRD 56 % High 20-55 [facility] Comment on above: Performed By: #### C BC #### S [facility] LABORATORY [address] [place] [address], FE CORRECT PRD 72 ug/dL Normal 30-125 [facility] Comment on above: Performed By: #### C BC #### [facility] [address] [place], [place], TIBC CORRECT PRD 129 ug/mL Low 200-300 [facility] Comment on above: Performed By: #### C BC #### [facility] [address] [place] [address], TRANSFER CORRECT PRD 92 mg/dL Low 210-375 [facility] Comment on above: Performed By: #### C BC #### [facility] [address] [place], [place], MAGNESIUMon 08-27-2021 Magnesium [Mass/Vol] 1.8 mg/dL Normal 1.6-2.8 [facility] Comment on above: Performed By: #### L IP, MG, HEPATIC, CH8 #### [facility] [address] [place] [address], Progress Noteson 08-27-2021 Production Machinist Authentication Interface Message Text Pharmacokinetic Dosing Service [...] mL/min Culture(s): PENDING Melany Chavarria [facility] - Department of Pharmacy Services Normal The [employer] Production Machinist Authentication Interface Message Text SW ICU Note: SW made aware by MD, pt will need home going IV ABX. CM and CSI aware and will follow for DC planning. Bailey Casillas [facility] Care Coordination Department Normal [facility] [employer] Production Machinist Authentication Interface Message Text [employer] Spiritual Care Services Services provided for: Patient and Family Services initiated by: Staff Physics Instructor Reason for services: Initial visit Assessment/Narrative: Physics Instructor knocked and entered patient's room to introduce self and share availability of spiritual care. Physics Instructor found patient supine in bed, awake and alert, visiting with his . Patient and spoke briefly with this child and youth program assistant about their [id number] marriage, their children, and their grandchildren as well as the kena they have experienced throughout their life together. Interventions: Introduction of service Outcome: Patient and spouse aware of child and youth program assistant availability Plan of Care: On-going visits 1-2x/week while patient is on MICU. Diana Smart MDiv Staff Physics Instructor, (she/her/hers) Ext: [phone] Pager: [phone] Normal [facility] [employer] Machinist Authentication Interface Message Text [facility] [employer] [facility] Pulmonary, Critical Care, AND Sleep Medicine [...] Critical Care time. Subjective: Inpatient PSG on [place] last night. Denies complaints today. Objective: Allergy: [...] Hct MCV RDW Plt PT aPTT INR 08/27/218 9.1 3.11 9.2 27.5 88 13.8 255 08/26/21 0431 11.5 3.05 8.9 27.3 90 13.7 225 08/25/21 1340 16.5 3.22 9.5 28.8 90 13.5 236 08/25/21 0510 1.36 08/25/21 0510 18.2 3.67 10.6 33.0 90 13.8 267 WBC/Diff Neutro% Lymph% Eos% Seg% Bands% 08/27/218 76.7 10.1 2.7 Hepatic/Biliary/Pancr eas T Prot [...] 1612 (more content not included)... Normal The [employer] [facility] Production Machinist Authentication Interface Message Text [facility] OF ACUTE CARE SURGERY --------- GENERAL INFORMATION -------- EMERGENCY GENERAL SURGERY NOTE Patient Name: Fidel Palomino Admission Date: 08/25/2021 Patient seen and examined on 08/27/2021 ------- INTERVAL HISTORY/EVENTS ----- Background Narrative: Fidel Palomino is a 86 year old male with a h/o HTN, HLD, BPH, remote left inguinal hernia repair with mesh, s/p appendectomy 07/28/21 (done at [facility]) c/b ileus who presented to OSH [...] years. ??? Hospital Course/Procedures: 08/25/2021: Admitted to [facility], IR drain placed. Events in last [...] date: 08/29) - Okay to discharge from [facility] perspective - Follow-up in 2 weeks with his surgeon at [facility] or at [facility] if need be Remaining of care per MICU team Patient seen with and assessment/plan discussed with Dr. Garcia. Denise Lincoln MD, MPH General Surgery PGY-1 [facility] Consult: [phone] [facility] Floor: [phone] Plan not finalized until signed by attending, [...] MG, HEPATIC, CH8 #### [facility] [address] [place] [address], BASIC METABOLIC PANELon 08-02 Anion gap [Moles/Vol] 20 mmol/L Normal 10-20 [facility] Comment on above: Performed By: #### L IP, MG, HEPATIC, CH8 #### [facility] [address] [place] [address], Calcium [Mass/Vol] 8.0 mg/dL Low 8.4-10.4 [facility] Comment on above: Performed By: #### L IP, MG, HEPATIC, CH8 #### [facility] [address] [place] [address], Chloride [Moles/Vol] 89 mmol/L Low 97-111 [facility] Comment on above: Performed By: #### L IP, MG, HEPATIC, CH8 #### [facility] [address] [place] [address], CO2 [Moles/Vol] 32 mmol/L High 21-30 [facility] Comment on above: Performed By: #### L IP, MG, HEPATIC, CH8 #### [facility] [address] [place] [address], Creatinine [Mass/Vol] 1.40 mg/dL High 0.80-1.30 [facility] Comment on above: Performed By: #### L IP, MG, HEPATIC, CH8 #### [facility] [address] [place] [address], ESTIMATED GFR (CKD-EPI) 46 mL/min/1.73sqm Low >=60 [facility] Comment on above: Performed By: #### L IP, MG, HEPATIC, CH8 #### [facility] [address] [place] [address], Glucose [Mass/Vol] 127 mg/dL High 80-116 [facility] Comment on above: Performed By: #### L IP, MG, HEPATIC, CH8 #### [facility] [address] [place] [address], Potassium [Moles/Vol] 3.8 mmol/L Normal 3.3-5.3 [facility] Comment on above: Performed By: #### L IP, MG, HEPATIC, CH8 #### [facility] [address] [place] [address], Sodium [Moles/Vol] 137 mmol/L Normal 135-148 [facility] Comment on above: Performed By: #### L IP, MG, HEPATIC, CH8 #### [facility] [address] [place] [address], Urea nitrogen [Mass/Vol] 26 mg/dL High 8-22 [facility] Comment on above: Performed By: #### L IP, MG, HEPATIC, CH8 #### [facility] [address] [place] [address], CBC WITH DIFFERENTIALon 08-02 Basophils (Bld) [#/Vol] 0.04 10*3/uL Normal 0.00-0.20 [facility] Comment on above: Performed By: #### C BCDSAT ####S PATHOLOGY [id number] [place], [place], Basophils/100 WBC (Bld) 0.4 % Normal <=1.9 [facility] Comment on above: Performed By: #### C BCDSAT ####S PATHOLOGY [id number] [place], [place], Eosinophils (Bld) [#/Vol] 0.17 10*3/uL Normal 0.00-0.70 [facility] Comment on above: Performed By: #### C BCDSAT ####[facility]OLOGY [id number] [place], [place], Eosinophils/100 WBC (Bld) 1.5 % Normal 0.1-4.0 [facility] Comment on above: Performed By: #### C BCDSAT ####[facility] PATHOLOGY [id number] [place], [place], Erythrocyte distribution width (RBC) [Ratio] 13.7 % Normal 11.5-14.5 [facility] Comment on above: Performed By: #### C BCDSAT ####[facility]OLOG[facility] [id number] [place], [place], Hematocrit (Bld) [Volume fraction] 27.3 % Low 41.0-53.0 [facility] Comment on above: Performed By: #### C BCDSAT ####[facility] PATHOLOGY [id number] [place], [place], Hemoglobin (Bld) [Mass/Vol] 8.9 g/dL Low 13.9-16.3 [facility] Comment on above: Performed By: #### C BCDSAT ####[facility] PATHOLOGY [id number] [place], [place], Lymphocytes (Bld) [#/Vol] 0.91 10*3/uL Low 1.00-4.80 [facility] Comment on above: Performed By: #### C BCDSAT ####[facility] PATHOLOGY [id number] [place], [place], Lymphocytes/100 WBC (Bld) 8.0 % Low 24.0-44.0 [facility] Comment on above: Performed By: #### C BCDSAT ####[facility] PATHOLOGY [id number] [place], [place], MCH (RBC) [Entitic mass] 29.1 pg Normal 26.0-34.0 [facility] Comment on above: Performed By: #### C BCDSAT ####[facility] PATHOLOGY [id number] [place], MCHC (RBC) [Mass/Vol] 32.5 g/dL Normal 32.0-35.9 [facility] Comment on above: Performed By: #### C BCDSAT ####[facility] PATHOLOGY [id number] [place], [place], MCV (RBC) [Entitic vol] 90 fL Normal 80-100 [facility] Comment on above: Performed By: #### C BCDSAT ####[facility] PATHOLOGY [id number] [place], [place], MONOCYTE DISTRIBUTION WIDTH Normal [facility] Comment on above: Performed By: #### C BCDSAT ####[facility] PATHOLOGY [id number] [place], [place], Monocytes (Bld) [#/Vol] 1.03 10*3/uL High 0.20-1.00 [facility] Comment on above: Performed By: #### C BCDSAT ####[facility] PATHOLOGY [id number] [place], [place], Monocytes/100 WBC (Bld) 9.0 % Normal 2.0-11.0 [facility] Comment on above: Performed By: #### C BCDSAT ####[facility] PATHOLOGY [id number] [place], [place], Neutrophils (Bld) [#/Vol] 9.32 10*3/uL High 1.50-8.00 [facility] Comment on above: Performed By: #### C BCDSAT ####[facility] PATHOLOGY [id number] [place], Neutrophils/100 WBC (Bld) 81.2 % High 31.0-76.0 [facility] Comment on above: Performed By: #### C BCDSAT ####S PATHOLOGY [id number] [place], Platelet mean volume (Bld) [Entitic vol] 7.4 fL Low 7.5-11.2 [facility] Comment on above: Performed By: #### C BCDSAT ####[facility] PATHOLOGY [id number] [place], [place], Platelets (Bld) [#/Vol] 225 10*3/uL Normal 150-400 [facility] Comment on above: Performed By: #### C BCDSAT ####S PATHOLOGY [id number] [place], RBC (Bld) [#/Vol] 3.05 10*6/uL Low 4.50-5.90 [facility] Comment on above: Performed By: #### C BCDSAT ####S PATHOLOGY [id number] [place], WBC (Bld) [#/Vol] 11.5 10*3/uL Normal 4.5-11.5 [facility] Comment on above: Performed By: #### C BCDSAT ####[facility] PATHOLOGY [id number] [place], [place], CLOSTRIDIUM DIFFICILEon - CLOSTRIDIUM DIFFICILE Negative Normal Negative [facility] Comment on above: Order Comment: Resul ts obtained by using a real-time PCR based qualitative in vitro diagnostic test for the direct detection of the C. difficile toxin A gene (tcdA) and toxin B gene (tcdB) targets in stool specimens.Results should be interpreted in conjunction with information from the patient clinical evaluation and other diagnostic testing Performed By: #### C BC #### [facility]ORATORY [address] [place], [place], Care Plan Noteon 08-26-2021 Production Machinist Authentication Interface Message Text Problem: Infection: Goal: [...] NC. No complaints of SOB. Normal [facility] [employer] [facility] HEPATIC FUNCTION PANELon Albumin [Mass/Vol] 1.5 g/dL Low 3.4-5.1 [facility] Comment on above: Performed By: #### L IP, MG, HEPATIC, CH8 #### [facility] [address] [place] [address], ALK 173 IU/L Normal 40-200 [facility] Comment on above: Performed By: #### L IP, MG, HEPATIC, CH8 #### [facility] [address] [place] [address], ALT [Catalytic activity/Vol] 77 U/L High 7-40 [facility] Comment on above: Performed By: #### L IP, MG, HEPATIC, CH8 #### [facility] [address] [place] [address], AST [Catalytic activity/Vol] 39 U/L Normal 7-40 [facility] Comment on above: Performed By: #### L IP, MG, HEPATIC, CH8 #### [facility] [address] [place] [address], Bilirubin [Mass/Vol] 0.6 mg/dL Normal 0.1-1.5 [facility] Comment on above: Performed By: #### L IP, MG, HEPATIC, CH8 #### [facility] [address] [place] [address], Bilirubin.direct [Mass/Vol] 0.20 mg/dL Normal 0.10-0.30 [facility] Comment on above: Performed By: #### L IP, MG, HEPATIC, CH8 #### [facility] [address] [place] [address], Protein [Mass/Vol] 4.6 g/dL Low 5.7-8.1 [facility] [employer] [facility] Comment on above: Performed By: #### L IP, MG, HEPATIC, CH8 #### [facility] [address] [place], [place], MAGNESIUMon 08-26-2021 Magnesium [Mass/Vol] 1.8 mg/dL Normal 1.6-2.8 [facility] [employer] [facility] Comment on above: Performed By: #### L IP, MG, HEPATIC, CH8 #### [facility] [address] [place], [place], PHOSPHORUSon 08-26-2021 Phosphate [Mass/Vol] 4.7 mg/dL High 2.3-4.2 [facility] [employer] [facility] Comment on above: Performed By: #### L IP, MG, HEPATIC, CH8 #### [facility] [address] [place], [place], Procedureson 08-26-2021 Production Machinist Authentication Interface Message Text Transthoracic Echocardiographic Report Name: GEORGETTE LIANG Interpreting HERLINDA JACQUES MD Physician: : [id number] Referring VERONICA ABEL MD Physician: Age: 86 Labor Economist: ILDA PATEL Exam Date: 08/26/2021 Fellow: 09:22 [...] Doctor's order(s) verified. Patient's preferred language is Hungarian . Verbal consent for left heart echo [...] physician) on 08/26/2021 11:16 AM Normal [facility] Progress Noteson 08-26-2021 Production Machinist Authentication Interface Message Text Pharmacokinetic Dosing Service [...] 1.30 mg/dL Final No results found for: ROBLESTRNo results found for: VANCR Serum creatinine: 1.4 mg/dL (H) 08/26/21 0431 Estimated creatinine clearance: 45.78 mL/min (A) Culture(s): PENDING. DUSTY SÁNCHEZ [facility] - Department of Pharmacy Services Normal [facility] Production Machinist Authentication Interface Message Text [facility] Pulmonary, Critical Care, AND Sleep Medicine MICU [...] hernia (s/p mesh), s/p appendectomy 07/28/21 at [facility] complicated by ileus presented to OSH with [...] 80 (!) 29 99 % Nasal cannula 5 08/25/21 1202 -- -- -- 79 (!) [...] Neut (more content not included)... Normal [facility] [employer] [facility] Production Machinist Authentication Interface Message Text [facility] OF ACUTE CARE SURGERY --------- GENERAL INFORMATION -------- EMERGENCY GENERAL SURGERY NOTE Patient Name: Fidel Palomino Admission Date: 08/25/2021 Patient seen and examined on 08/26/2021 ------- INTERVAL HISTORY/EVENTS ----- Background Narrative: Fidel Palomino is a 86 year old male with a h/o HTN, HLD, BPH, remote left inguinal hernia repair with mesh, s/p appendectomy 07/28/21 (done at [facility]) c/b ileus who presented to OS [...] years. ??? Hospital Course/Procedures: 08/25/2021: Admitted to [facility], IR drain placed. Events in last 24 hours: Admitted to [facility] and IR drain placed yesterday 08/25/2021. [...] PO4 08/26/21 0431 1.8 08/26/21 0431 4.7 08/26/211 137 3.8 89 32 20 127 26 1.40 8.0 08/25/21 1340 135 3.7 90 32 17 136 26 1.63 7.7 Arterial Blood Gases None IMAGING RESULTS - Last 24 hours (PERSONALLY REVIEWED) ??? CT CHEST, ABDOMEN AND PELVIS W/O CONTRAST [facility] - 08/24/2021 1. Moderate right-sided pleural [...] impaction. ??? XR CHEST 1V PORTABLE ([facility]) - 08/24/2021 LOW LUNG VOLUMES WITH [...] 3. (more content not included)... Normal [facility] Production Machinist Authentication Interface Message Text Pharmacy Renal Dosing [...] required; The recommended therapy is cefepime 2gm [id number] . Medication therapy has been updated per consult agreement. DUSTY SÁNCHEZ, [facility] Department of Pharmacy Services Normal [facility] [employer] [facility] US LIVER/GALL BLADDER/PANCRE ASon 08-26-2021 US [...] cholelithiasis is demonstrated. MACRO: None Normal [facility] ABO RH TYPEon 08-25-2021 ABO and Rh group Nom (Bld) Blood group O Rh(D) positive Normal [facility] Comment on above: Performed By: #### L IP, MG, HEPATIC, CH8 #### [facility] [address] [place] [address], [id number] AEROBIC WOUND CULTUREon 08-02 AEROBIC WOUND CULTURE C PYOG: Positive Culture Report ESCHERICHIA COLI 2+ Escherichia coli Rare growth of normal skin brett GRAM STAIN: 4+ Polymorphonuclear Leukocytes No Squamous Epithelial Cells seen Mixed polymicrobial brett seen Normal [facility] Comment on above: Order Comment: THIS IS A PRELIMINARY REPORT. Final results will follow. Results of the preliminary report may be modified as additional information becomes available. Performed By: #### C PYOG ####[facility] [id number] [id number] MELISSA _ ORGANISM: ESCHERICHIA COLI ANTIBIOTIC MELISSA [...] + Sulfamethoxazole <= 20 S Normal [facility] Comment on above: Order Comment: THIS IS A PRELIMINARY REPORT. Final results will follow. Results of the preliminary report may be modified as additional information becomes available. Performed By: #### C PYOG ####[facility] [address] [place], [id number] B TYPE NATRIURETIC PEPTIDEon 08-25-2021 Natriuretic peptide B (Bld) [Mass/Vol] 321.0 pg/mL High <100.0 [facility] Comment on above: Performed By: #### L IP, MG, HEPATIC, CH8 #### [facility] [address] [place] [address], BASIC METABOLIC PANELon 08-02 Anion gap [Moles/Vol] 17 mmol/L Normal 10-20 [facility] Comment on above: Performed By: #### L IP, MG, HEPATIC, CH8 #### [facility] [address] [place] [address], Calcium [Mass/Vol] 7.7 mg/dL Low 8.4-10.4 [facility] Comment on above: Performed By: #### L IP, MG, HEPATIC, CH8 #### [facility] [address] [place] [address], Chloride [Moles/Vol] 90 mmol/L Low 97-111 [facility] Comment on above: Performed By: #### L IP, MG, HEPATIC, CH8 #### [facility] [address] [place] [address], CO2 [Moles/Vol] 32 mmol/L High 21-30 [facility] Comment on above: Performed By: #### L IP, MG, HEPATIC, CH8 #### [facility] [address] [place] [address], Creatinine [Mass/Vol] 1.63 mg/dL High 0.80-1.30 [facility] Comment on above: Performed By: #### L IP, MG, HEPATIC, CH8 #### [facility] [address] [place] [address], ESTIMATED GFR (CKD-EPI) 38 mL/min/1.73sqm Low >=60 [facility] Comment on above: Performed By: #### L IP, MG, HEPATIC, CH8 #### [facility] [address] [place] [address], Glucose [Mass/Vol] 136 mg/dL High 80-116 [facility] Comment on above: Performed By: #### L IP, MG, HEPATIC, CH8 #### [facility] [address] [place] [address], Potassium [Moles/Vol] 3.7 mmol/L Normal 3.3-5.3 [facility] Comment on above: Performed By: #### L IP, MG, HEPATIC, CH8 #### [facility] [address] [place] [address], Sodium [Moles/Vol] 135 mmol/L Normal 135-148 [facility] Comment on above: Performed By: #### L IP, MG, HEPATIC, CH8 #### [facility] [address] [place] [address], Urea nitrogen [Mass/Vol] 26 mg/dL High 8-22 [facility] Comment on above: Performed By: #### L IP, MG, HEPATIC, CH8 #### [facility] [address] [place] [address], Anion gap [Moles/Vol] 15 mmol/L Normal 10-20 [facility] Comment on above: Performed By: #### L IP, MG, HEPATIC, CH8 #### [facility] [address] [place] [address], Calcium [Mass/Vol] 7.9 mg/dL Low 8.4-10.4 [facility] Comment on above: Performed By: #### L IP, MG, HEPATIC, CH8 #### [facility] [address] [place] [address], Chloride [Moles/Vol] 88 mmol/L Low 97-111 [facility] Comment on above: Performed By: #### L IP, MG, HEPATIC, CH8 #### [facility] [address] [place] [address], CO2 [Moles/Vol] 33 mmol/L High 21-30 [facility] Comment on above: Performed By: #### L IP, MG, HEPATIC, CH8 #### [facility] [address] [place] [address], Creatinine [Mass/Vol] 1.96 mg/dL High 0.80-1.30 [facility] Comment on above: Performed By: #### L IP, MG, HEPATIC, CH8 #### [facility] [address] [place] [address], ESTIMATED GFR (CKD-EPI) 30 mL/min/1.73sqm Low >=60 [facility] Comment on above: Performed By: #### L IP, MG, HEPATIC, CH8 #### [facility] [address] [place] [address], Glucose [Mass/Vol] 134 mg/dL High 80-116 [facility] Comment on above: Performed By: #### L IP, MG, HEPATIC, CH8 #### [facility] [address] [place] [address], Potassium [Moles/Vol] 3.7 mmol/L Normal 3.3-5.3 [facility] Comment on above: Performed By: #### L IP, MG, HEPATIC, CH8 #### [facility] [address] [place] [address], Sodium [Moles/Vol] 132 mmol/L Low 135-148 [facility] Comment on above: Performed By: #### L IP, MG, HEPATIC, CH8 #### [facility] [address] [place] [address], Urea nitrogen [Mass/Vol] 28 mg/dL High 8-22 [facility] Comment on above: Performed By: #### L IP, MG, HEPATIC, CH8 #### [facility] [address] [place] [address], BLOOD CULTUREon 08-25-2021 Bacteria identified Cx Nom (Bld) C BLOOD: No Growth Normal [facility] Comment on above: Performed By: #### C BC #### [facility] [address] [place] [address], BLOOD GAS, VENOUSon 08-25-19 22 CR ABEV 7.8 mmol/L High -4.0-4.0 [facility] Comment on above: Performed By: #### C R BGV ####[facility] [id number] [place], [place], CR HCO3V 33 mmol/L High 22-28 [facility] Comment on above: Performed By: #### C R BGV ####[facility]Y [id number] [place], [place], CR PHV 7.416 High 7.310-7.410 [facility] Comment on above: Performed By: #### C R BGV ####[facility] PATH[facility]Y [id number] [place] [address], CR PVCO2 52.5 mm Hg High 41.0-51.0 [facility] Comment on above: Performed By: #### C R BGV ####[facility]Y [id number] [place] [address], CR PVO2 43 mm Hg High 35-40 [facility] Comment on above: Performed By: #### C R BGV ####[facility]Y [id number] [place] [address], Oxygen saturation in Blood 75.6 % High 70.0-75.0 [facility] Comment on above: Performed By: #### C R BGV ####[facility]Y [id number] [place] [address], CBC WITH DIFFERENTIALon 08-02 Basophils (Bld) [#/Vol] 0.03 10*3/uL Normal 0.00-0.20 [facility] Comment on above: Performed By: #### C BC #### [facility] [address] [place] [address], Basophils/100 WBC (Bld) 0.2 % Normal <=1.9 [facility] Comment on above: Performed By: #### C BC #### [facility] [address] [place] [address], Eosinophils (Bld) [#/Vol] 0.08 10*3/uL Normal 0.00-0.70 [facility] Comment on above: Performed By: #### C BC #### [facility] [address] [place] [address], Eosinophils/100 WBC (Bld) 0.4 % Normal 0.1-4.0 [facility] Comment on above: Performed By: #### C BC #### [facility] [address] [place] [address], Erythrocyte distribution width (RBC) [Ratio] 13.8 % Normal 11.5-14.5 [facility] Comment on above: Performed By: #### C BC #### [facility] [address] [place] [address], Hematocrit (Bld) [Volume fraction] 33.0 % Low 41.0-53.0 [facility] Comment on above: Performed By: #### C BC #### [facility] [address] [place] [address], Hemoglobin (Bld) [Mass/Vol] 10.6 g/dL Low 13.9-16.3 [facility] Comment on above: Performed By: #### C BC #### [facility] [address] [place] [address], Lymphocytes (Bld) [#/Vol] 0.66 10*3/uL Low 1.00-4.80 [facility] Comment on above: Performed By: #### C BC #### [facility] [address] [place] [address], Lymphocytes/100 WBC (Bld) 3.6 % Low 24.0-44.0 [facility] Comment on above: Performed By: #### C BC #### [facility] [address] [place] [address], MCH (RBC) [Entitic mass] 28.9 pg Normal 26.0-34.0 [facility] Comment on above: Performed By: #### C BC #### [facility] [address] [place] [address], MCHC (RBC) [Mass/Vol] 32.2 g/dL Normal 32.0-35.9 [facility] Comment on above: Performed By: #### C BC #### [facility] [address] [place] [address], MCV (RBC) [Entitic vol] 90 fL Normal 80-100 [facility] Comment on above: Performed By: #### C BC #### [facility] [address] [place] [address], MONOCYTE DISTRIBUTION WIDTH 21 High <=20 [facility] Comment on above: Performed By: #### C BC #### [facility] [address] [place], [place], Monocytes (Bld) [#/Vol] 1.52 10*3/uL High 0.20-1.00 [facility] Comment on above: Performed By: #### C BC #### [facility] [address] [place], [place], Monocytes/100 WBC (Bld) 8.3 % Normal 2.0-11.0 [facility] Comment on above: Performed By: #### C BC #### [facility] [address] [place] [address], Neutrophils (Bld) [#/Vol] 15.95 10*3/uL High 1.50-8.00 [facility] Comment on above: Performed By: #### C BC #### [facility] [address] [place], [place], Neutrophils/100 WBC (Bld) 87.5 % High 31.0-76.0 [facility] Comment on above: Performed By: #### C BC #### [facility] [address] [place], [place], Platelet mean volume (Bld) [Entitic vol] 7.7 fL Normal 7.5-11.2 [facility] Comment on above: Performed By: #### C BC #### [facility] [address] [place], [place], Platelets (Bld) [#/Vol] 267 10*3/uL Normal 150-400 [facility] Comment on above: Performed By: #### C BC #### S [facility] [address] [place], [place], RBC (Bld) [#/Vol] 3.67 10*6/uL Low 4.50-5.90 [facility] Comment on above: Performed By: #### C BC #### [facility] [address] [place] [address], WBC (Bld) [#/Vol] 18.2 10*3/uL High 4.5-11.5 [facility] Comment on above: Performed By: #### C BC #### [facility] [address] [place] [address], COMPLETE BLOOD COUNTon 08-25 Erythrocyte distribution width (RBC) [Ratio] 13.5 % Normal 11.5-14.5 [facility] Comment on above: Performed By: #### C BC #### [facility] [address] [place] [address], Hematocrit (Bld) [Volume fraction] 28.8 % Low 41.0-53.0 [facility] Comment on above: Performed By: #### C BC #### [facility] [address] [place] [address], Hemoglobin (Bld) [Mass/Vol] 9.5 g/dL Low 13.9-16.3 [facility] Comment on above: Performed By: #### C BC #### [facility] [address] [place] [address], MCH (RBC) [Entitic mass] 29.5 pg Normal 26.0-34.0 [facility] Comment on above: Performed By: #### C BC #### [facility] [address] [place] [address], MCHC (RBC) [Mass/Vol] 32.9 g/dL Normal 32.0-35.9 [facility] Comment on above: Performed By: #### C BC #### [facility] [address] [place] [address], MCV (RBC) [Entitic vol] 90 fL Normal 80-100 [facility] Comment on above: Performed By: #### C BC #### [facility] [address] [place] [address], Platelet mean volume (Bld) [Entitic vol] 7.6 fL Normal 7.5-11.2 [facility] Comment on above: Performed By: #### C BC #### [facility] [address] [place], [place], Platelets (Bld) [#/Vol] 236 10*3/uL Normal 150-400 [facility] Comment on above: Performed By: #### C BC #### [facility] [address] [place] [address], RBC (Bld) [#/Vol] 3.22 10*6/uL Low 4.50-5.90 [facility] Comment on above: Performed By: #### C BC #### [facility] [address] [place], [place], WBC (Bld) [#/Vol] 16.5 10*3/uL High 4.5-11.5 [facility] Comment on above: Performed By: #### C BC #### [facility] [address] [place] [address], CTA CHEST PULMONARY EMBOLISM W/ CTAon 08-25-2021 [...] gallbladder is nondistended. MACRO: None Normal [facility] [employer] [facility] Care Plan Noteon 08-25-2021 Production Machinist Authentication Interface Message Text Problem: Infection: Goal: [...] NC. Will wean as tolerated. Normal [facility] [employer] [facility] Consultson 08-25-2021 Production Machinist Authentication Interface Message Text DEPARTMENT OF SURGERY CONSULT - ACUTE CARE SURGERY Fidel Palomino [id number] Chief Complaint/Reason for Consultation Intraabdominal fluid collection History (HPI) Fidel Palomino is a 86 year old male with a h/o HTN, HLD, BPH, remote left inguinal hernia repair with mesh, s/p appendectomy 07/28/21 (done at [facility]) c/b ileus who presented to [facility] ED [...] CT (more content not included)... Normal [facility] [employer] [facility] ED Provider Noteson 08-25-19 Production Machinist Authentication Interface Message Text NS for KB 86yM PMH of HTN and appendectomy 07/28/21. Transfer from [facility] due to syncope, found to have abdominal [...] to assume care of patient. Normal [facility] [employer] [facility] Production Machinist Authentication Interface Message Text ED RESIDENT CONTINUATION [...] Color Yellow Appearance Clear pH 5.5 Spec [place] <=1.005 Protein Negative Glucose Negative Ketones Negative [...] Technically successful ultrasound-guided placement of a 10 Serbian pigtail catheter into right paracolic gutter abscess. [KB] ED Course User Index [KB] Jia Jiang DO [SP] Javon Gray MD Medical Decision MakinyM PMH of HTN and appendectomy 07/28/21. Transfer from [facility] due to syncope, found to have abdominal [...] Com (more content not included)... Normal [facility] [employer] [facility] Production Machinist Authentication Interface Message Text 86yM PMH of HTN and appendectomy 07/28/21. Transfer from [facility] due to syncope, found to have abdominal fluid mass, pleural effusion (4L NC now), b/l leg edema (new), PNA, and fecal impaction. Small fluid bolus ordered and patient is being evaluated by ACS. Labs pending now, ordered for azithromycin. [ ] ACS recs [ ] likely admit medicine Normal [facility] [employer] [facility] Production Machinist Authentication Interface Message Text 86yM PMH of HTN and appendectomy 07/28/21. Transfer from [facility] due to syncope, found to have abdominal fluid mass, pleural effusion (4L NC now), b/l leg edema (new), PNA, and fecal impaction. Small fluid bolus ordered and patient is being evaluated by [facility]. Labs pending now, ordered for azithromycin. Normal [facility] [employer] [facility] Tidemarkation Interface Message Text EMERGENCY DEPARTMENT - VISIT NOTE --------- HISTORY OF PRESENT ILLNESS ----- Chief Complaint Patient presents with * Chart tx from [facility] for post-op complications, apx removed 07/28/21, having fluid build up and posisble cyst found at surgical site, possible pna found on chest xray at OSH, no BM in 5 days not needed - patient preferred language is Hungarian. HPI History is provided by the patient [...] poor p.o. intake. He went to the [facility] emergency department for further evaluation where he was found to have a intra-abdominal abscess as well as bilateral pleural effusions with possible pneumonia. Because of the complex nature of his presentation, the patient was transferred to [facility] for further management. While ed route to [facility], the patient began to have substantial gas [...] nursing note reviewed. Exam conducted with a terrazzo laborer present. Constitutional: General: He is not in [...] includ (more content not included)... Normal [facility] [employer] [facility] HEPATIC FUNCTION PANELon Albumin [Mass/Vol] 1.7 g/dL Low 3.4-5.1 [facility] Comment on above: Performed By: #### L IP, MG, HEPATIC, CH8 #### S PATHOLOGY LABORATORY [address] [place] [address], ALK 229 IU/L High 40-200 [facility] Comment on above: Performed By: #### L IP, MG, HEPATIC, CH8 #### [facility] [address] [place] [address], ALT [Catalytic activity/Vol] 125 U/L High 7-40 [facility] Comment on above: Performed By: #### L IP, MG, HEPATIC, CH8 #### S [facility]ORY [address] [place] [address], AST [Catalytic activity/Vol] 83 U/L High 7-40 [facility] Comment on above: Performed By: #### L IP, MG, HEPATIC, CH8 #### S [facility]ORY [address] [place] [address], Bilirubin [Mass/Vol] 0.7 mg/dL Normal 0.1-1.5 [facility] Comment on above: Performed By: #### L IP, MG, HEPATIC, CH8 #### S [facility]ATORY [address] [place] [address], Bilirubin.direct [Mass/Vol] 0.40 mg/dL High 0.10-0.30 [facility] Comment on above: Performed By: #### L IP, MG, HEPATIC, CH8 #### S [facility] [address] [place] [address], Protein [Mass/Vol] 5.6 g/dL Low 5.7-8.1 [facility] Comment on above: Performed By: #### L IP, MG, HEPATIC, CH8 #### S [facility] [address] [place] [address], LACTIC ACIDon 08-25-2021 CR LACT 1.0 mmol/L Normal 0.5-2.0 [facility] Comment on above: Performed By: #### L IP, MG, HEPATIC, CH8 #### S [facility] LABORATORY [address] [place] [address], CR LACT 2.2 mmol/L High 0.5-2.0 [facility] Comment on above: Performed By: #### L ACT #### [facility]OR[facility]ORY [address] [place], [place], LIPASEon 08-25-2021 LIP 38 IU/L Normal <128 [facility] Comment on above: Performed By: #### L IP, MG, HEPATIC, CH8 #### [facility] [address] [place], [place], MAGNESIUMon 08-25-2021 Magnesium [Mass/Vol] 1.8 mg/dL Normal 1.6-2.8 [facility] Comment on above: Performed By: #### L IP, MG, HEPATIC, CH8 #### [facility]OR[facility] [address] [place], [place], PROTHROMBIN TIME AND INRon 0 08-25-2021 INR Coag (PPP) [Relative time] 1.36 {INR} High 0.90-1.10 [facility] Comment on above: Performed By: #### P T ####S PATHOLOGY [id number] [place], [place], PT Coag (PPP) [Time] 15.0 s High 9.7-12.9 [facility] Comment on above: Performed By: #### P T ####S PATHOLOGY [id number] [place], [place], Progress Noteson 08-25-2021 Production Machinist Authentication Interface Message Text Pharmacokinetic Dosing Service [...] weight.) Culture(s): PENDING Armond Cohn [facility] - Department of Pharmacy Services Normal [facility] TROPONIN Ion 08-25-2021 TROP I < 0.030 Normal <0.120 [facility] Comment on above: Result Comment: Rang [...] MG, HEPATIC, CH8 #### [facility] [address] [place] [address], TYPE AND SCREENon 08-25-2021 ABO and Rh group Nom (Bld) Blood group O Rh(D) positive Normal [facility] Comment on above: Performed By: #### L IP, MG, HEPATIC, CH8 #### [facility] [address] [place] [address], ABO and Rh group Nom (Bld) No Previous Results Normal [facility] Comment on above: Performed By: #### L IP, MG, HEPATIC, CH8 #### [facility] [address] [place] [address], ABSC INT Negative Normal [facility] Comment on above: Performed By: #### L IP, MG, HEPATIC, CH8 #### [facility] [address] [place] [address], URINALYSISon 08-25-2021 Glucose Ql (U) Negative Normal Negative [facility] Comment on above: Order Comment: A [...] 50%) Performed By: #### C BC #### [facility] [address] [place] [address], U APPEAR Clear Normal Clear [facility] Comment on above: Order Comment: A [...] #### C BC #### S [facility] [address] [place] [address], U BILI Negative Normal Negative The [employer] [facility] Comment on above: Order Comment: A [...] #### C BC #### [facility] [address] [place] [address], U BLOOD Negative Normal Negative [facility] [employer] [facility] Comment on above: Order Comment: A [...] 50%) Performed By: #### C BC #### [facility] [address] [place] [address], U COLOR Yellow Normal Yellow [facility] Comment on above: Order Comment: A [...] 50%) Performed By: #### C BC #### [facility] [address] [place] [address], U KETONE Negative Normal Negative The [employer] [facility] Comment on above: Order Comment: A [...] 50%) Performed By: #### C BC #### [facility] [address] [place] [address], U LEUK Trace Abnormal Negative The [employer] [facility] Comment on above: Order Comment: A [...] 50%) Performed By: #### C BC #### [facility] [address] [place] [address], U NITRITE Negative Normal Negative The [employer] [facility] Comment on above: Order Comment: A [...] 50%) Performed By: #### C BC #### [facility] [address] [place] [address], U PH 6.0 Normal 5.0-8.0 [facility] [employer] [facility] Comment on above: Order Comment: A [...] 50%) Performed By: #### C BC #### [facility] [address] [place] [address], U PROTEIN Negative Normal Negative The [employer] [facility] Comment on above: Order Comment: A [...] 50%) Performed By: #### C BC #### [facility] [address] [place], [place], U RBC 3-5 Abnormal 0-2 [facility] Comment on above: Order Comment: A [...] 50%) Performed By: #### C BC #### [facility] [address] [place], [place], U SG 1.023 Normal 1.005-1.030 The [employer] [facility] Comment on above: Order Comment: A [...] 50%) Performed By: #### C BC #### [facility] [address] [place], [place], U UROBILI Negative Normal 0.1 - 1.0 The [employer] [facility] Comment on above: Order Comment: A [...] #### C BC #### [facility] [address] [place] [address], U WBC 3-5 Abnormal 0-2 The [facility] Comment on above: Order Comment: [...] 50%) Performed By: #### C BC #### [facility] [address] [place] [address], URINALYSIS,AUTO-IN OFFICEon 08-25-2021 BILIRUBIN, URINE POC Negative Normal Negative The [facility] Comment on above: Order Comment: TEST PERFORMED AT:Emergency Department POC [id number] [place] [address] Performed By: #### L IP, MG, HEPATIC, CH8 #### [facility] [address] [place] [address], BLOOD, URINE POC Negative Normal Negative [facility] Comment on above: Order Comment: TEST PERFORMED AT:Emergency Department POC [id number] [place] [address] Performed By: #### L IP, MG, HEPATIC, CH8 #### [facility] [address] [place] [address], CLARITY, POC Clear Normal The [facility] Comment on above: Order Comment: TEST PERFORMED AT:Emergency Department POC [id number] [place] [address] Performed By: #### L IP, MG, HEPATIC, CH8 #### [facility] [address] [place] [address], COLOR, POC Yellow Normal [facility] Comment on above: Order Comment: TEST PERFORMED AT:Emergency Department POC [id number] [place] [address] Performed By: #### L IP, MG, HEPATIC, CH8 #### [facility] [address] [place] [address], GLUCOSE, URINE POC Negative Normal Negative The [facility] Comment on above: Order Comment: TEST PERFORMED AT:Emergency Department POC [id number] [place] [address] Performed By: #### L IP, MG, HEPATIC, CH8 #### [facility] [address] [place] [address], KETONES, URINE POC Negative Normal Negative The [facility] Comment on above: Order Comment: TEST PERFORMED AT:Emergency Department POC [id number] [place] [address] Performed By: #### L IP, MG, HEPATIC, CH8 #### [facility] [address] [place] [address], LEUKOCYTES, URINE POC Negative Normal Negative The [facility] Comment on above: Order Comment: TEST PERFORMED AT:Emergency Department POC [id number] [place] [address] Performed By: #### L IP, MG, HEPATIC, CH8 #### [facility] [address] [place] [address], NITRITES, URINE POC Negative Normal Negative The [facility] Comment on above: Order Comment: TEST PERFORMED AT:Emergency Department POC [id number] [place] [address] Performed By: #### L IP, MG, HEPATIC, CH8 #### [facility] [address] [place] [address], PH, URINE POC 5.5 Normal 5.0-8.0 The [facility] Comment on above: Order Comment: TEST PERFORMED AT:Emergency Department POC [id number] [place] [address] Performed By: #### L IP, MG, HEPATIC, CH8 #### [facility] [address] [place] [address], PROTEIN, URINE POC Negative Normal Negative The [facility] Comment on above: Order Comment: TEST PERFORMED AT:Emergency Department POC [id number] [place] [address] Performed By: #### L IP, MG, HEPATIC, CH8 #### [facility] [address] [place], [place], SPECIFIC GRAVITY, POC <=1.005 Normal 1.005 - 1.030 The [facility] Comment on above: Order Comment: TEST PERFORMED AT:Emergency Department POC [id number] [place], [place] Performed By: #### L IP, MG, HEPATIC, CH8 #### [facility] [address] [place], [place], UROBILINOGEN, URINE POC 0.2 Normal 0.2 - 1.0 The [facility] Comment on above: Order Comment: TEST PERFORMED AT:Emergency Department POC [id number] [place] [address] Performed By: #### L IP, MG, HEPATIC, CH8 #### [facility] [address] [place] [address], CULTURE URINEon 08-24-2021 CULTURE URINE Isolate 1 [...] Trimethoprim/Sulfamet hoxazole <=20 S F Normal [facility] Comment on above: Performed By: #### H STROPN #### [facility] [address] [place] [address] Dr. Uziel Reid BNPon 08-22-2021 Natriuretic peptide B (Bld) [Mass/Vol] 700.0 pg/mL Normal <=1,800.0 [facility] Comment on above: Performed By: #### H STROPN #### [facility] [address] [place] [address] Dr. Uziel Reid CBC AUTO DIFFon 08-22-2021 BASO # 0.0 103/ul Normal 0.0-0.1 [facility] Comment on above: Performed By: #### C BC #### [facility] [address] [address] [address] Uziel Reid Basophils/100 WBC (Bld) 0.3 % Normal 0.2-2.0 [facility] Comment on above: Performed By: #### C BC #### [facility] [address] [address] [address] Uziel Reid EO # 0.1 103/ul Normal 0.0-0.7 [facility] Comment on above: Performed By: #### C BC #### [facility] [address] [place] [address] Dr. Uziel Reid Eosinophils/100 WBC (Bld) 0.7 % Critically low 0.9-7.0 [facility] Comment on above: Performed By: #### C BC #### [facility] [address] [place] [address] Dr. Uziel Reid Erythrocyte distribution width (RBC) [Ratio] 13.3 % Normal 11.0-15.0 [facility] Comment on above: Performed By: #### C BC #### [facility] [address] [place] [address] Dr. Uziel Reid Hematocrit (Bld) [Volume fraction] 31.4 % Critically low 42.0-54.0 [facility] Comment on above: Performed By: #### C BC #### [facility] [address] [place] [address] Dr. Uziel Reid Hemoglobin (Bld) [Mass/Vol] 10.1 g/dL Critically low 14.0-18.0 [facility] Comment on above: Performed By: #### C BC #### [facility] [address] [place] [address] Dr. Uziel Reid IG # 0.10 10e3/ul Critically high 0.00-0.03 [facility] Comment on above: Performed By: #### C BC #### [facility] [address] [place] [address] Dr. Uziel Reid IG % 0.7 % Critically high 0.0-0.5 [facility] Comment on above: Performed By: #### C BC #### [facility] [address] [place] [address] Dr. Uziel Reid LYMPH # 0.9 103/ul Critically low 1.2-3.8 The [facility] Comment on above: Performed By: #### C BC #### [facility] [address] [place] [address] Dr. Uziel Reid Lymphocytes/100 WBC (Bld) 6.0 % Critically low 20.5-60.0 [facility] Comment on above: Performed By: #### C BC #### [facility] [address] [place] [address] Dr. Uziel Reid MANUAL DIFF REQ NO Normal [facility] Comment on above: Performed By: #### C BC #### [facility] [address] [place] [address] Dr. Uziel Reid MCH (RBC) [Entitic mass] 29.6 pg Normal 25.9-34.0 [facility] Comment on above: Performed By: #### C BC #### [facility] [address] [place] [address] Dr. Uziel Reid MCHC (RBC) [Mass/Vol] 32.2 g/dL Normal 29.9-35.2 [facility] Comment on above: Performed By: #### C BC #### [facility] [address] [place] [address] Dr. Uziel Reid MCV (RBC) [Entitic vol] 92.1 fL Normal 80.0-94.0 [facility] Comment on above: Performed By: #### C BC #### [facility] [address] [place] [address] Dr. Uziel Reid MONO # 1.5 103/ul Critically high 0.3-0.8 [facility] Comment on above: Performed By: #### C BC #### [facility] [address] [place] [address] Dr. Uziel Reid Monocytes/100 WBC (Bld) 9.8 % Normal 1.7-12.0 [facility] Comment on above: Performed By: #### C BC #### [facility] [address] [place] [address] Dr. Uziel Reid NEUT # 12.7 103/ul Critically high 1.4-6.5 [facility] Comment on above: Performed By: #### C BC #### [facility] [address] [place] [address] Dr. Uziel Reid Neutrophils/100 WBC (Bld) 82.5 % Critically high 43.0-75.0 [facility] Comment on above: Performed By: #### C BC #### [facility] [address] [place] [address] Dr. Uziel Reid Platelet mean volume (Bld) [Entitic vol] 9.8 fL Normal 9.5-13.5 [facility] Comment on above: Performed By: #### C BC #### [facility] [address] [place] [address] Dr. Uziel Reid PLT 199 103/ul Normal 150-450 [facility] Comment on above: Performed By: #### C BC #### [facility] [address] [place] [address] Dr. Uziel Reid RBC 3.41 106/ul Critically low 4.70-6.10 [facility] Comment on above: Performed By: #### C BC #### [facility] [address] [place] [address] Dr. Uziel Reid WBC 15.3 103/ul Critically high 4.0-11.0 [facility] Comment on above: Performed By: #### C BC #### [facility] [address] [place] [address] Dr. Uziel Reid [facility]02 SARS-CoV-2 (COVID-19) RNA ALFONSO+probe Ql (Unsp spec) Not detected Normal NOT DETECTED [facility] Comment on above: Result Comment: When diagnostic testing is negative, the possibility of a false negative should be considered in the context of a patient's recent exposures and the presence of clinical signs and symptoms consistent with SARS-CoV-2. This test is not yet approved or cleared by the [place] Food and Drug Administration (FDA). This test was developed by [employer], [place], [place]. The performance characteristics of this test were validated by The [facility]. The results are not intended to be used as the sole means for clinical diagnosis or patient management decisions. The [facility] is authorized under Clinical Laboratory Improvement Amendments [...] this test is supported by the Supervisor Stone of Health and Human Service's declaration that [...] used). Performed By: #### C FERDINAND #### [facility] [address] [place] [address] Dr. Uziel Reid ER URINE PROFILEon 2 Bilirubin Ql (U) Negative Normal NEGATIVE [facility] Comment on above: Performed By: #### B MP, PHOS, MG #### [facility] [address] [place] [address] Dr. Uziel Reid Clarity (U) CLEAR Normal CLEAR [facility] Comment on above: Performed By: #### B MP, PHOS, MG #### [facility] [address] [place] [address] Dr. Uziel Reid Color (U) LT. YELLOW Normal YELLOW [facility] Comment on above: Performed By: #### B MP, PHOS, MG #### [facility] [address] [place] [address] Dr. Uziel Reid ERUAHD A micrscopic examination will be performed if indicated. Normal [facility] Comment on above: Performed By: #### B MP, PHOS, MG #### [facility] [address] [address] [address] Uziel Reid Glucose Ql (U) Negative Normal NEGATIVE [facility] Comment on above: Performed By: #### B MP, PHOS, MG #### [facility] [address] [address] [address] Uziel Reid Hemoglobin Ql (U) Negative Normal NEGATIVE [facility] Comment on above: Performed By: #### B MP, PHOS, MG #### [facility] [address] [address] [address] Uziel Reid Ketones Ql (U) Negative Normal NEGATIVE [facility] Comment on above: Performed By: #### B MP, PHOS, MG #### [facility] [address] [place] [address] Dr. Uziel Reid LEUKOCYTES TRACE Abnormal NEGATIVE [facility] Comment on above: Performed By: #### B MP, PHOS, MG #### [facility] [address] [place] [address] Dr. Uziel Reid Nitrite Ql (U) Positive Abnormal NEGATIVE [facility] Comment on above: Performed By: #### B MP, PHOS, MG #### [facility] [address] [place] [address] Dr. Uziel Reid pH (U) 6.0 [pH] Normal 5-9 [facility] Comment on above: Performed By: #### B MP, PHOS, MG #### [facility] [address] [place] [address] Dr. Uziel Reid SPEC GRAVITY 1.010 Normal 1.005-<=1.025 [facility] Comment on above: Performed By: #### B MP, PHOS, MG #### [facility] [address] [place] [address] Dr. Uziel Reid UA PROTEIN Negative Normal NEGATIVE/ TRACE [facility] Comment on above: Performed By: #### B MP, PHOS, MG #### [facility] [address] [place] [address] Dr. Uziel Reid UR MICRO IND INDICATED Normal [facility] Comment on above: Performed By: #### B MP, PHOS, MG #### [facility] [address] [place] [address] Dr. Uziel Reid Urobilinogen Qn (U) 0.2 {Sushma'U}/dL Normal 0.2 - 1. 0 [facility] Comment on above: Performed By: #### B MP, PHOS, MG #### [facility] [address] [place] [address] Dr. Uziel Reid PROF 14(COMP METB)on 022 Albumin [Mass/Vol] 1.8 g/dL Critically low 3.5-5.0 Th e [facility] Comment on above: Performed By: #### H STROPN #### [facility] [address] [place] [address] Dr. Uziel Reid Albumin/Globulin [Mass ratio] 0.4 {ratio} Normal [facility] Comment on above: Performed By: #### H STROPN #### [facility] [address] [place] [address] Dr. Uziel Reid ALP [Catalytic activity/Vol] 211 U/L Critically high 38-126 [facility] Comment on above: Performed By: #### H STROPN #### [facility] [address] [place] [address] Dr. Uziel Reid ALT [Catalytic activity/Vol] 104 U/L Critically high 21-72 [facility] Comment on above: Performed By: #### H STROPN #### [facility] [address] [place] [address] Dr. Uziel Reid Anion gap [Moles/Vol] 7.1 mmol/L Normal [facility] Comment on above: Performed By: #### H STROPN #### [facility] [address] [place] [address] Dr. Uziel Ried AST [Catalytic activity/Vol] 86 U/L Critically high 17-59 [facility] Comment on above: Performed By: #### H STROPN #### [facility] [address] [address] [address] Uziel Reid Bilirubin [Mass/Vol] 0.7 mg/dL Normal 0.2-1.3 [facility] Comment on above: Performed By: #### H STROPN #### [facility] [address] [address] [address] Uziel Reid Calcium [Mass/Vol] 8.2 mg/dL Critically low 8.4-10.2 Th [facility] Comment on above: Performed By: #### H STROPN #### [facility] [address] [address] [address] Uziel Reid Chloride [Moles/Vol] 88 mmol/L Critically low 98-107 [facility] Comment on above: Performed By: #### H STROPN #### [facility] [address] [place] [address] Dr. Uziel Reid CO2 [Moles/Vol] 36.3 mmol/L Critically high 22.0-30.0 [facility] Comment on above: Performed By: #### H STROPN #### [facility] [address] [address] [address] Uziel Reid Creatinine [Mass/Vol] 1.75 mg/dL Critically high 0.66-1.25 [facility] Comment on above: Performed By: #### H STROPN #### [facility] [address] [address] [address] Uziel Reid EGFR-AF CHINESE 45 mL/min/1.73m2 Critically low >=60 [facility] Comment on above: Performed By: #### H STROPN #### [facility] [address] [address] [address] Uziel Reid EGFR-NON AF CHINESE 37 mL/min/1.73m2 Critically low >=60 [facility] Comment on above: Performed By: #### H STROPN #### [facility] [address] [address] [address] Uziel Reid Globulin (S) [Mass/Vol] 5.0 g/dL Normal [facility] Comment on above: Performed By: #### H STROPN #### [facility] [address] [address] [address] Uziel Reid Glucose [Mass/Vol] 226 mg/dL Critically high 74-106 T [facility] Comment on above: Performed By: #### H STROPN #### [facility] [address] [address] [address] Uziel Reid Potassium [Moles/Vol] 3.4 mmol/L Normal 3.4-5.0 [facility] Comment on above: Performed By: #### H STROPN #### [facility] [address] [address] [address] Uziel Reid Protein [Mass/Vol] 6.8 g/dL Normal 6.1-8.2 [facility] Comment on above: Performed By: #### H STROPN #### [facility] [address] [address] [address] Uziel Reid Sodium [Moles/Vol] 128 mmol/L Critically low 137-145 Th [facility] Comment on above: Performed By: #### H STROPN #### [facility] [address] [address] [address] Uziel Reid Urea nitrogen [Mass/Vol] 30.0 mg/dL Critically high 9.0-20.0 [facility] Comment on above: Performed By: #### H STROPN #### [facility] [address] [address] [address] Uziel Reid Urea nitrogen/Creatinine [Mass ratio] 17.1 mg/mg Normal [facility] Comment on above: Performed By: #### H STROPN #### [facility] [address] [address] [address] Uziel Reid TROPONIN, HIGH SENSITIVITYon 08-22-2021 HSTROP 8.2 pg/mL Normal 4.0-42.2 [facility] Comment on above: Result Comment: CUT- OFF POINTS HAVE BEEN ESTABLISHED BASED ON THE FOURTH UNIVERSAL DEFINITIONS OF MYOCARDIAL INFARCTION. THE UPPER REFERENCE LIMIT (URL) OF TROPONIN, DEFINED THE 99TH PERCENTILE OF cTnI DISTRIBUTION IN A REFERENCE POPULATION, HAS BEEN CONFIRMED THE DECISION THRESHOLD FOR [place] DIAGNOSIS. Performed By: #### H STROPN #### [facility] [address] [place] [address] Dr. Uziel Reid URINE MICROSCOPIC ONLYon BACTERIA MODERATE Abnormal NONE SEEN [facility] Comment on above: Performed By: #### B MP, PHOS, MG #### [facility] [address] [place] [address] Dr. Uziel Reid Bacteria identified Cx Nom (U) INDICATED Normal [facility] Comment on above: Performed By: #### B MP, PHOS, MG #### [facility] [address] [place] [address] Dr. Uziel Reid CAST NONE SEEN Normal NONE SEEN [facility] Comment on above: Performed By: #### B MP, PHOS, MG #### [facility] [address] [place] [address] Dr. Uziel Reid Crystals LM Nom (Urine sed) NONE SEEN Normal NONE SEEN [facility] Comment on above: Performed By: #### B MP, PHOS, MG #### [facility] [address] [place] [address] Dr. Uziel Reid Epithelial cells LM Ql (Urine sed) NONE SEEN Normal NONE SEEN /RARE [facility] Comment on above: Performed By: #### B MP, PHOS, MG #### [facility] [address] [place] [address] Dr. Uziel Reid MUCOUS NONE SEEN Normal NONE SEEN [facility] Comment on above: Performed By: #### B MP, PHOS, MG #### [facility] [address] [place] [address] Dr. Uziel Reid RBC 0-2 Normal 0-2 [facility] Comment on above: Performed By: #### B MP, PHOS, MG #### [facility] [address] [place] [address] Dr. Uziel Reid WBC 10-20 Abnormal NONE SEEN [facility] Comment on above: Performed By: #### B MP, PHOS, MG #### [facility] [address] [place] [address] Dr. Uziel Reid XR CHEST 1 Von 01-22-2022 XR CHEST 1 V EXAM: XR CHEST [...] GERARDO BRADY Date: 2021-08-22 00:30 Normal [facility] CBC W MANUAL DIFFon 08-18-19 22 ATYPICAL LYMPH # Normal [facility] Comment on above: Performed By: #### C BCMAN #### [facility] [address] [place] [address] Dr. Uziel Reid ATYPICAL LYMPH % Normal [facility] Comment on above: Performed By: #### C BCSARIKA #### [facility] [address] [place] [address] Dr. Uziel Reid BAND # Normal 0.0-0.3 [facility] Comment on above: Performed By: #### C BCMAN #### [facility] [address] [address] [address] Uziel Reid BAND % Normal 0-5 [facility] Comment on above: Performed By: #### C BCMAN #### [facility] [address] [place] [address] Dr. Uziel Reid BASOM # 0.00 103/ul Normal 0.00-0.10 [facility] Comment on above: Performed By: #### C BCMAN #### [facility] [address] [place] [address] Dr. Uziel Reid BASOM % 0.0 % Critically low 0.2-2.0 [facility] Comment on above: Performed By: #### C BCMAN #### [facility] [address] [place] [address] Dr. Uziel Reid BLAST # Normal [facility] Comment on above: Performed By: #### C BCMAN #### [facility] [address] [place] [address] Dr. Uziel Reid BLAST % Normal [facility] Comment on above: Performed By: #### C BCSARIKA #### [facility] [address] [place] [address] Dr. Uziel Reid CORRECTED WBC Normal 4.0-11.0 [facility] Comment on above: Performed By: #### C BCSARIKA #### [facility] [address] [place] [address] Dr. Uziel Reid EOS # 0.00 103/ul Normal 0.00-0.70 [facility] Comment on above: Performed By: #### C BCSARIKA #### [facility] [address] [place] [address] Dr. Uziel Reid EOS% 0.0 % Critically low 0.9-7.0 [facility] Comment on above: Performed By: #### C BCSARIKA #### [facility] [address] [place] [address] Dr. Uziel Reid HCT 31.8 % Critically low 42.0-54.0 [facility] Comment on above: Performed By: #### C BCSARIKA #### [facility] [address] [place] [address] Dr. Uziel Reid HGB 10.2 g/dl Critically low 14.0-18.0 [facility] Comment on above: Performed By: #### C BCSARIKA #### [facility] [address] [place] [address] Dr. Uziel Reid LYMPHM # 1.83 103/ul Normal 1.20-3.80 [facility] Comment on above: Performed By: #### C BCSARIKA #### [facility] [address] [place] [address] Dr. Uziel Reid LYMPHM% 11.0 % Critically low 20.5-60.0 [facility] Comment on above: Performed By: #### C BCMAN #### [facility] [address] [place] [address] Dr. Uziel Reid MCH 29.7 pg Normal 25.9-34.0 [facility] Comment on above: Performed By: #### Jesse STREETER #### [facility] [address] [place] [address] Dr. Uziel Reid MCHC 32.1 g/dl Normal 29.9-35.2 [facility] Comment on above: Performed By: #### C FERDINAND #### [facility] [address] [place] [address] Dr. Uziel Reid MCV 92.7 fL Normal 80.0-94.0 [facility] Comment on above: Performed By: #### C FERDINAND #### [facility] [address] [place] [address] Dr. Uziel Reid METAMYELOCYTE # Normal [facility] Comment on above: Performed By: #### C FERDINAND #### [facility] [address] [place] [address] Dr. Uziel Reid METAMYELOCYTE % Normal [facility] Comment on above: Performed By: #### Jesse STREETER #### [facility] [address] [place] [address] Dr. Uziel Reid MONOM# 1.83 103/ul Critically high 0.30-0.80 [facility] Comment on above: Performed By: #### Jesse STREETER #### [facility] [address] [place] [address] Dr. Uziel Reid MONOM% 11.0 % Normal 1.7-12.0 [facility] Comment on above: Performed By: #### Jesse STREETER #### [facility] [address] [place] [address] Dr. Uziel Reid MPV 9.8 fL Normal 9.5-13.5 [facility] Comment on above: Performed By: #### Jesse STREETER #### [facility] [address] [place] [address] Dr. Uziel Reid MYELOCYTE # Normal [facility] Comment on above: Performed By: #### Jesse STREETER #### [facility] [address] [place] [address] Dr. Uziel Reid MYELOCYTE % Normal [facility] Comment on above: Performed By: #### C FERDINAND #### [facility] [address] [address] [address] Uziel Reid NRBC Normal [facility] Comment on above: Performed By: #### C FERDINAND #### [facility] [address] [address] [address] Uziel Reid PLT 240 103/ul Normal 150-450 [facility] Comment on above: Performed By: #### C FERDINAND #### [facility] [address] [address] [address] Uziel Reid RBC 3.43 106/ul Critically low 4.70-6.10 [facility] Comment on above: Performed By: #### C FERDINAND #### [facility] [address] [place] [address] Dr. Uziel Reid RDW 13.3 % Normal 11.0-15.0 [facility] Comment on above: Performed By: #### C FERDINAND #### [facility] [address] [place] [address] Dr. Uziel Reid SEG # 12.95 103/ul Critically high 1.40-6.50 [facility] Comment on above: Performed By: #### C FERDINAND #### [facility] [address] [place] [address] Dr. Uziel Reid SEG % 78.0 % Critically high 43.0-75.0 [facility] Comment on above: Performed By: #### C FERDINAND #### [facility] [address] [place] [address] Dr. Uziel Reid WBC 16.6 103/ul Critically high 4.0-11.0 [facility] Comment on above: Performed By: #### C FERDINAND #### [facility] [address] [place] [address] Dr. Uziel Reid PROF 14(COMP METB)on 022 Albumin [Mass/Vol] 1.9 g/dL Critically low 3.5-5.0 [facility] Comment on above: Performed By: #### B MP, PHOS, MG #### [facility] [address] [place], [place] [id number] Dr. Uziel Reid Albumin/Globulin [Mass ratio] 0.4 {ratio} Normal [facility] Comment on above: Performed By: #### B MP, PHOS, MG #### [facility] [address] [place] [address] Dr. Uziel Reid ALP [Catalytic activity/Vol] 130 U/L Critically high 38-126 [facility] Comment on above: Performed By: #### B MP, PHOS, MG #### [facility] [address] [place] [address] Dr. Uziel Reid ALT [Catalytic activity/Vol] 38 U/L Normal 21-72 [facility] Comment on above: Performed By: #### B MP, PHOS, MG #### [facility] [address] [place] [address] Dr. Uziel Reid Anion gap [Moles/Vol] 6.0 mmol/L Normal [facility] Comment on above: Performed By: #### B MP, PHOS, MG #### [facility] [address] [place] [address] Dr. Uziel Reid AST [Catalytic activity/Vol] 29 U/L Normal 17-59 [facility] Comment on above: Performed By: #### B MP, PHOS, MG #### [facility] [address] [place] [address] Dr. Uziel Reid Bilirubin [Mass/Vol] 0.8 mg/dL Normal 0.2-1.3 [facility] Comment on above: Performed By: #### B MP, PHOS, MG #### [facility] [address] [place] [address] Dr. Uziel Reid Calcium [Mass/Vol] 8.2 mg/dL Critically low 8.4-10.2 [facility] Comment on above: Performed By: #### B MP, PHOS, MG #### [facility] [address] [place] [address] Dr. Uziel Reid Chloride [Moles/Vol] 90 mmol/L Critically low 98-107 [facility] Comment on above: Performed By: #### B MP, PHOS, MG #### [facility] [address] [place] [address] Dr. Uziel Reid CO2 [Moles/Vol] 39.8 mmol/L Critically high 22.0-30.0 [facility] Comment on above: Performed By: #### B MP, PHOS, MG #### [facility] [address] [place] [address] Dr. Uziel Reid Creatinine [Mass/Vol] 1.12 mg/dL Normal 0.66-1.25 [facility] Comment on above: Performed By: #### B MP, PHOS, MG #### [facility] [address] [place] [address] Dr. Uziel Reid EGFR-AF CHINESE 76 mL/min/1.73m2 Normal >=60 [facility] Comment on above: Performed By: #### B MP, PHOS, MG #### [facility] [address] [place] [address] Dr. Uziel Reid EGFR-NON AF CHINESE 62 mL/min/1.73m2 Normal >=60 [facility] Comment on above: Performed By: #### B MP, PHOS, MG #### [facility] [address] [place] [address] Dr. Uziel Reid Globulin (S) [Mass/Vol] 4.7 g/dL Normal [facility] Comment on above: Performed By: #### B MP, PHOS, MG #### [facility] [address] [place] [address] Dr. Uziel Reid Glucose [Mass/Vol] 131 mg/dL Critically high 74-106 T [facility] Comment on above: Performed By: #### B MP, PHOS, MG #### [facility] [address] [place] [address] Dr. Uziel Reid Potassium [Moles/Vol] 2.8 mmol/L Critically low 3.4-5.0 [facility] Comment on above: Result Comment: TEST REPEATED CRITICAL VALUE VERIFIED Performed By: #### B MP, PHOS, MG #### [facility] [address] [place] [address] Dr. Uziel Reid Protein [Mass/Vol] 6.6 g/dL Normal 6.1-8.2 [facility] Comment on above: Performed By: #### B MP, PHOS, MG #### [facility] [address] [place] [address] Dr. Uziel Reid Sodium [Moles/Vol] 132 mmol/L Critically low 137-145 Th [facility] Comment on above: Performed By: #### B MP, PHOS, MG #### [facility] [address] [place] [address] Dr. Uziel Reid Urea nitrogen [Mass/Vol] 19.0 mg/dL Normal 9.0-20.0 [facility] Comment on above: Performed By: #### B MP, PHOS, MG #### [facility] [address] [place] [address] Dr. Uziel Reid Urea nitrogen/Creatinine [Mass ratio] 17.0 mg/mg Normal [facility] Comment on above: Performed By: #### B MP, PHOS, MG #### [facility] [address] [place] [address] Dr. Uziel Reid TROPONIN, HIGH SENSITIVITYon 08-18-2021 HSTROP 7.6 pg/mL Normal 4.0-42.2 [facility] Comment on above: Result Comment: CUT- OFF POINTS HAVE BEEN ESTABLISHED BASED ON THE FOURTH UNIVERSAL DEFINITIONS OF MYOCARDIAL INFARCTION. THE UPPER REFERENCE LIMIT (URL) OF TROPONIN, DEFINED THE 99TH PERCENTILE OF cTnI DISTRIBUTION IN A REFERENCE POPULATION, HAS BEEN CONFIRMED THE DECISION THRESHOLD FOR [place] DIAGNOSIS. Performed By: #### H STROPN #### [facility] [address] [place] [address] Dr. Uziel Reid MAGNESIUMon 08-10-2021 Magnesium [Mass/Vol] 2.2 mg/dL Normal 1.6-2.3 [facility] Comment on above: Performed By: #### B MP, PHOS, MG #### [facility] [address] [place] [address] Dr. Uziel Reid PHOSPHORUSon 08-10-2021 Phosphate [Mass/Vol] 3.0 mg/dL Normal 2.5-4.5 [facility] Comment on above: Performed By: #### B MP, PHOS, MG #### [facility] [address] [address] [address] Uziel Reid POINT OF CARE GLUCOSEon 08-01 Glucose [Mass/Vol] 135 mg/dL Critically high 74-106 T [facility] Comment on above: Performed By: #### P OCGLUC #### [facility] [address] [place] [address] Dr. Uziel Reid PROF CHEM 8 (BAS METB)on Anion gap [Moles/Vol] 1.8 mmol/L Normal [facility] Comment on above: Performed By: #### B MP, PHOS, MG #### [facility] [address] [place] [address] Dr. Uziel Reid Calcium [Mass/Vol] 7.8 mg/dL Critically low 8.4-10.2 Th [facility] Comment on above: Performed By: #### B MP, PHOS, MG #### [facility] [address] [place] [address] Dr. Uziel Reid Chloride [Moles/Vol] 100 mmol/L Normal 98-107 [facility] Comment on above: Performed By: #### B MP, PHOS, MG #### [facility] [address] [place] [address] Dr. Uziel Reid CO2 [Moles/Vol] 37.0 mmol/L Critically high 22.0-30.0 [facility] Comment on above: Performed By: #### B MP, PHOS, MG #### [facility] [address] [place] [address] Dr. Uziel Reid Creatinine [Mass/Vol] 0.73 mg/dL Normal 0.66-1.25 [facility] Comment on above: Performed By: #### B MP, PHOS, MG #### [facility] [address] [place] [address] Dr. Uziel Reid EGFR-AF CHINESE >60 Normal >=60 [facility] Comment on above: Performed By: #### B MP, PHOS, MG #### [facility] [address] [place] [address] Dr. Uziel Reid EGFR-NON AF CHINESE >60 Normal >=60 [facility] Comment on above: Performed By: #### B MP, PHOS, MG #### [facility] [address] [address] [address] Uziel Reid Glucose [Mass/Vol] 136 mg/dL Critically high 74-106 T [facility] Comment on above: Performed By: #### B MP, PHOS, MG #### [facility] [address] [place] [address] Dr. Uziel Reid Potassium [Moles/Vol] 3.8 mmol/L Normal 3.4-5.0 [facility] Comment on above: Performed By: #### B MP, PHOS, MG #### [facility] [address] [place] [address] Dr. Uziel Reid Sodium [Moles/Vol] 135 mmol/L Critically low 137-145 [facility] Comment on above: Performed By: #### B MP, PHOS, MG #### [facility] [address] [place] [address] Dr. Uziel Reid Urea nitrogen [Mass/Vol] 16.0 mg/dL Normal 9.0-20.0 [facility] Comment on above: Performed By: #### B MP, PHOS, MG #### [facility] [address] [place] [address] Dr. Uziel Reid Urea nitrogen/Creatinine [Mass ratio] 21.9 mg/mg Normal [facility] Comment on above: Performed By: #### B MP, PHOS, MG #### [facility] [address] [place] [address] Dr. Uziel Reid BNPon 08-09-2021 Natriuretic peptide B (Bld) [Mass/Vol] 301.0 pg/mL Normal <=1,800.0 [facility] Comment on above: Performed By: #### B MP, PHOS, MG #### [facility] [address] [place] [address] Dr. Uziel Reid MAGNESIUMon 08-09-2021 Magnesium [Mass/Vol] 2.4 mg/dL Critically high 1.6-2.3 [facility] Comment on above: Performed By: #### B MP, PHOS, MG #### [facility] [address] [place] [address] Dr. Uziel Reid PHOSPHORUSon 08-09-2021 Phosphate [Mass/Vol] 3.1 mg/dL Normal 2.5-4.5 [facility] Comment on above: Performed By: #### B MP, PHOS, MG #### [facility] [address] [place] [address] Dr. Uziel Reid POINT OF CARE GLUCOSEon Glucose [Mass/Vol] 158 mg/dL Critically high 74-106 [facility] Comment on above: Performed By: #### B MP, PHOS, MG #### [facility] [address] [place] [address] Dr. Uziel Reid Glucose [Mass/Vol] 188 mg/dL Critically high 74-106 [facility] Comment on above: Performed By: #### B MP, PHOS, MG #### [facility] [address] [place] [address] Dr. Uziel Reid PROF CHEM 8 (BAS METB)on Anion gap [Moles/Vol] 4.8 mmol/L Normal [facility] Comment on above: Performed By: #### B MP, PHOS, MG #### [facility] [address] [place] [address] Dr. Uziel Reid Calcium [Mass/Vol] 7.5 mg/dL Critically low 8.4-10.2 Th [facility] Comment on above: Performed By: #### B MP, PHOS, MG #### [facility] [address] [place] [address] Dr. Uziel Reid Chloride [Moles/Vol] 101 mmol/L Normal 98-107 [facility] Comment on above: Performed By: #### B MP, PHOS, MG #### [facility] [address] [place] [address] Dr. Uziel Reid CO2 [Moles/Vol] 36.9 mmol/L Critically high 22.0-30.0 [facility] Comment on above: Performed By: #### B MP PHOS, MG #### [facility] [address] [address] [address] Uziel Reid Creatinine [Mass/Vol] 0.64 mg/dL Critically low 0.66-1.25 [facility] Comment on above: Performed By: #### B MP PHOS, MG #### [facility] [address] [address] [address] Uziel Reid EGFR-AF CHINESE >60 Normal >=60 [facility] Comment on above: Performed By: #### B MP, PHOS, MG #### [facility] [address] [address] [address] Uziel Reid EGFR-NON AF CHINESE >60 Normal >=60 [facility] Comment on above: Performed By: #### B MP PHOS, MG #### [facility] [address] [address] [address] Uziel Reid Glucose [Mass/Vol] 122 mg/dL Critically high 74-106 [facility] Comment on above: Performed By: #### B MP PHOS, MG #### [facility] [address] [address] [address] Uziel Reid Potassium [Moles/Vol] 3.7 mmol/L Normal 3.4-5.0 [facility] Comment on above: Performed By: #### B MP PHOS, MG #### [facility] [address] [address] [address] Uziel Reid Sodium [Moles/Vol] 139 mmol/L Normal 137-145 [facility] Comment on above: Performed By: #### B MP, PHOS, MG #### [facility] [address] [address] [address] Uziel Reid Urea nitrogen [Mass/Vol] 21.0 mg/dL Critically high 9.0-20.0 [facility] Comment on above: Performed By: #### B MP, PHOS, MG #### [facility] [address] [place] [address] Dr. Uziel Reid Urea nitrogen/Creatinine [Mass ratio] 32.8 mg/mg Normal [facility] Comment on above: Performed By: #### B MP, PHOS, MG #### [facility] [address] [address] [address] Uziel Reid XR CHEST 2 Von [...] DOMINIC STEVE Date: 2021-08-09 15:11 Normal [facility] MAGNESIUMon 08-08-2021 Magnesium [Mass/Vol] 2.5 mg/dL Critically high 1.6-2.3 [facility] Comment on above: Performed By: #### B MP, PHOS, MG #### [facility] [address] [place] [address] Dr. Uziel Reid PHOSPHORUSon 08-08-2021 Phosphate [Mass/Vol] 2.4 mg/dL Critically low 2.5-4.5 [facility] Comment on above: Performed By: #### B MP, PHOS, MG #### [facility] [address] [place] [address] Dr. Uziel Reid PROF CHEM 8 (BAS METB)on Anion gap [Moles/Vol] 5.7 mmol/L Normal [facility] Comment on above: Performed By: #### B MP, PHOS, MG #### [facility] [address] [place] [address] Dr. Uziel Reid Calcium [Mass/Vol] 7.3 mg/dL Critically low 8.4-10.2 Th [facility] Comment on above: Performed By: #### B MP, PHOS, MG #### [facility] [address] [address] [address] Uziel Reid Chloride [Moles/Vol] 102 mmol/L Normal 98-107 [facility] Comment on above: Performed By: #### B MP, PHOS, MG #### [facility] [address] [place] [address] Dr. Uziel Reid CO2 [Moles/Vol] 34.6 mmol/L Critically high 22.0-30.0 [facility] Comment on above: Performed By: #### B MP, PHOS, MG #### [facility] [address] [place] [address] Dr. Uziel Reid Creatinine [Mass/Vol] 0.64 mg/dL Critically low 0.66-1.25 [facility] Comment on above: Performed By: #### B MP, PHOS, MG #### [facility] [address] [place] [address] Dr. Uziel Reid EGFR-AF CHINESE >60 Normal >=60 [facility] Comment on above: Performed By: #### B MP, PHOS, MG #### [facility] [address] [place] [address] Dr. Uziel Reid EGFR-NON AF CHINESE >60 Normal >=60 [facility] Comment on above: Performed By: #### B MP, PHOS, MG #### [facility] [address] [place] [address] Dr. Uziel Reid Glucose [Mass/Vol] 259 mg/dL Critically high 74-106 T [facility] Comment on above: Performed By: #### B MP, PHOS, MG #### [facility] [address] [place] [address] Dr. Uziel Reid Potassium [Moles/Vol] 3.3 mmol/L Critically low 3.4-5.0 [facility] Comment on above: Performed By: #### B MP, PHOS, MG #### [facility] [address] [place] [address] Dr. Uziel Reid Sodium [Moles/Vol] 139 mmol/L Normal 137-145 [facility] Comment on above: Performed By: #### B MP, PHOS, MG #### [facility] [address] [place] [address] Dr. Uziel Reid Urea nitrogen [Mass/Vol] 19.0 mg/dL Normal 9.0-20.0 [facility] Comment on above: Performed By: #### B MP, PHOS, MG #### [facility] [address] [place] [address] Dr. Uziel Reid Urea nitrogen/Creatinine [Mass ratio] 29.7 mg/mg Normal [facility] Comment on above: Performed By: #### B MP, PHOS, MG #### [facility] [address] [place] [address] Dr. Uziel Reid MAGNESIUMon 08-07-2021 Magnesium [Mass/Vol] 2.6 mg/dL Critically high 1.6-2.3 [facility] Comment on above: Performed By: #### P OCGLUC #### [facility] [address] [place] [address] Dr. Uziel Reid PHOSPHORUSon 08-07-2021 Phosphate [Mass/Vol] 2.3 mg/dL Critically low 2.5-4.5 [facility] Comment on above: Performed By: #### B MP, PHOS, MG #### [facility] [address] [place] [address] Dr. Uziel Reid POINT OF CARE GLUCOSEon Glucose [Mass/Vol] 191 mg/dL Critically high 74-106 [facility] Comment on above: Performed By: #### B MP, PHOS, MG #### [facility] [address] [place] [address] Dr. Uziel Reid PROF CHEM 8 (BAS METB)on Anion gap [Moles/Vol] 1.8 mmol/L Normal [facility] Comment on above: Performed By: #### P OCGLUC #### [facility] [address] [place] [address] Dr. Uziel Reid Calcium [Mass/Vol] 7.4 mg/dL Critically low 8.4-10.2 Th [facility] Comment on above: Performed By: #### P OCGLUC #### [facility] [address] [address] [address] Uziel Reid Chloride [Moles/Vol] 106 mmol/L Normal 98-107 [facility] Comment on above: Performed By: #### P OCGLUC #### [facility] [address] [address] [address] Uziel Reid CO2 [Moles/Vol] 38.3 mmol/L Critically high 22.0-30.0 [facility] Comment on above: Performed By: #### P OCGLUC #### [facility] [address] [address] [address] Uziel Reid Creatinine [Mass/Vol] 0.65 mg/dL Critically low 0.66-1.25 [facility] Comment on above: Performed By: #### P OCGLUC #### [facility] [address] [address] [address] Uziel Reid EGFR-AF CHINESE >60 Normal >=60 [facility] Comment on above: Performed By: #### P OCGLUC #### [facility] [address] [address] [address] Uziel Reid EGFR-NON AF CHINESE >60 Normal >=60 [facility] Comment on above: Performed By: #### P OCGLUC #### [facility] [address] [address] [address] Uziel Reid Glucose [Mass/Vol] 208 mg/dL Critically high 74-106 [facility] Comment on above: Performed By: #### P OCGLUC #### [facility] [address] [address] [address] Uziel Reid Potassium [Moles/Vol] 3.1 mmol/L Critically low 3.4-5.0 [facility] Comment on above: Performed By: #### P OCGLUC #### [facility] [address] [address] [address] Uziel Reid Sodium [Moles/Vol] 143 mmol/L Normal 137-145 [facility] Comment on above: Performed By: #### P OCGLUC #### [facility] [address] [place] [address] Dr. Uziel Reid Urea nitrogen [Mass/Vol] 19.0 mg/dL Normal 9.0-20.0 [facility] Comment on above: Performed By: #### P OCGLUC #### [facility] [address] [place] [address] Dr. Uziel Reid Urea nitrogen/Creatinine [Mass ratio] 29.2 mg/mg Normal [facility] Comment on above: Performed By: #### P OCGLUC #### [facility] [address] [place] [address] Dr. Uziel Reid CBC AUTO DIFFon 08-06-2021 BASO # 0.0 103/ul Normal 0.0-0.1 [facility] Comment on above: Performed By: #### B MP, PHOS, MG #### [facility] [address] [place] [address] Dr. Uziel Reid Basophils/100 WBC (Bld) 0.2 % Normal 0.2-2.0 [facility] Comment on above: Performed By: #### B MP, PHOS, MG #### [facility] [address] [place] [address] Dr. Uziel Reid EO # 0.2 103/ul Normal 0.0-0.7 [facility] Comment on above: Performed By: #### B MP, PHOS, MG #### [facility] [address] [place] [address] Dr. Uziel Reid Eosinophils/100 WBC (Bld) 1.3 % Normal 0.9-7.0 [facility] Comment on above: Performed By: #### B MP, PHOS, MG #### [facility] [address] [place] [address] Dr. Uziel Reid Erythrocyte distribution width (RBC) [Ratio] 13.5 % Normal 11.0-15.0 [facility] Comment on above: Performed By: #### B MP, PHOS, MG #### [facility] [address] [place] [address] Dr. Uziel Reid Hematocrit (Bld) [Volume fraction] 38.6 % Critically low 42.0-54.0 [facility] Comment on above: Performed By: #### B MP, PHOS, MG #### [facility] [address] [place] [address] Dr. Uziel Reid Hemoglobin (Bld) [Mass/Vol] 12.2 g/dL Critically low 14.0-18.0 [facility] Comment on above: Performed By: #### B MP, PHOS, MG #### [facility] [address] [place] [address] Dr. Uziel Reid IG # 0.35 10e3/ul Critically high 0.00-0.03 [facility] Comment on above: Performed By: #### B MP, PHOS, MG #### [facility] [address] [place] [address] Dr. Uziel Reid IG % 2.2 % Critically high 0.0-0.5 [facility] Comment on above: Performed By: #### B MP, PHOS, MG #### [facility] [address] [place] [address] Dr. Uziel Reid LYMPH # 1.0 103/ul Critically low 1.2-3.8 [facility] Comment on above: Performed By: #### B MP, PHOS, MG #### [facility] [address] [place] [address] Dr. Uziel Reid Lymphocytes/100 WBC (Bld) 6.1 % Critically low 20.5-60.0 [facility] Comment on above: Performed By: #### B MP, PHOS, MG #### [facility] [address] [place] [address] Dr. Uziel Reid MANUAL DIFF REQ NO Normal [facility] Comment on above: Performed By: #### B MP, PHOS, MG #### [facility] [address] [place] [address] Dr. Uziel Reid MCH (RBC) [Entitic mass] 30.1 pg Normal 25.9-34.0 [facility] Comment on above: Performed By: #### B MP, PHOS, MG #### [facility] [address] [place] [address] Dr. Uziel Reid MCHC (RBC) [Mass/Vol] 31.6 g/dL Normal 29.9-35.2 [facility] Comment on above: Performed By: #### B MP, PHOS, MG #### [facility] [address] [place] [address] Dr. Uziel Reid MCV (RBC) [Entitic vol] 95.3 fL Critically high 80.0-94.0 [facility] Comment on above: Performed By: #### B MP, PHOS, MG #### [facility] [address] [place] [address] Dr. Uziel Reid MONO # 1.2 103/ul Critically high 0.3-0.8 [facility] Comment on above: Performed By: #### B MP, PHOS, MG #### [facility] [address] [place] [address] Dr. Uziel Reid Monocytes/100 WBC (Bld) 7.6 % Normal 1.7-12.0 [facility] Comment on above: Performed By: #### B MP, PHOS, MG #### [facility] [address] [place] [address] Dr. Uziel Reid NEUT # 13.3 103/ul Critically high 1.4-6.5 [facility] Comment on above: Performed By: #### B MP, PHOS, MG #### [facility] [address] [place] [address] Dr. Uziel Reid Neutrophils/100 WBC (Bld) 82.6 % Critically high 43.0-75.0 [facility] Comment on above: Performed By: #### B MP, PHOS, MG #### [facility] [address] [place] [address] Dr. Uziel Reid Platelet mean volume (Bld) [Entitic vol] 10.0 fL Normal 9.5-13.5 [facility] Comment on above: Performed By: #### B MP, PHOS, MG #### [facility] [address] [address] [address] Uziel Reid PLT 206 103/ul Normal 150-450 [facility] Comment on above: Performed By: #### B MP, PHOS, MG #### [facility] [address] [address] [address] Uziel Reid RBC 4.05 106/ul Critically low 4.70-6.10 [facility] Comment on above: Performed By: #### B MP, PHOS, MG #### [facility] [address] [address] [address] Uziel Reid WBC 16.2 103/ul Critically high 4.0-11.0 [facility] Comment on above: Performed By: #### B MP, PHOS, MG #### [facility] [address] [address] [address] Uziel Reid POINT OF CARE GLUCOSEon Glucose [Mass/Vol] 202 mg/dL Critically high 74-106 [facility] Comment on above: Performed By: #### B MP, PHOS, MG #### [facility] [address] [address] [address] Uziel Reid Glucose [Mass/Vol] 192 mg/dL Critically high [address] [place] [address] Comment on above: Performed By: #### P OCGLUC #### [facility] [address] [address] [address] Uziel Reid Glucose [Mass/Vol] 234 mg/dL Critically high 74-106 [facility] Comment on above: Performed By: #### P OCGLUC #### [facility] [address] [place] [address] Dr. Uziel Reid PROF 14(COMP METB)on 022 Albumin [Mass/Vol] 1.8 g/dL Critically low 3.5-5.0 [facility] Comment on above: Performed By: #### B MP, PHOS, MG #### [facility] [address] [address] [address] Uziel Reid Albumin/Globulin [Mass ratio] 0.5 {ratio} Normal [facility] Comment on above: Performed By: #### B MP, PHOS, MG #### [facility] [address] [place] [address] Dr. Uziel Reid ALP [Catalytic activity/Vol] 63 U/L Normal 38-126 [facility] Comment on above: Performed By: #### B MP, PHOS, MG #### [facility] [address] [place] [address] Dr. Uziel Reid ALT [Catalytic activity/Vol] 20 U/L Critically low 21-72 [facility] Comment on above: Performed By: #### B MP, PHOS, MG #### [facility] [address] [place] [address] Dr. Uziel Reid Anion gap [Moles/Vol] 5.5 mmol/L Normal [facility] Comment on above: Performed By: #### B MP, PHOS, MG #### [facility] [address] [place] [address] Dr. Uziel Reid AST [Catalytic activity/Vol] 17 U/L Normal 17-59 [facility] Comment on above: Performed By: #### B MP, PHOS, MG #### [facility] [address] [place] [address] Dr. Uziel Reid Bilirubin [Mass/Vol] 0.4 mg/dL Normal 0.2-1.3 [facility] Comment on above: Performed By: #### B MP, PHOS, MG #### [facility] [address] [place] [address] Dr. Uziel Reid Calcium [Mass/Vol] 7.3 mg/dL Critically low 8.4-10.2 [facility] Comment on above: Performed By: #### B MP, PHOS, MG #### [facility] [address] [place] [address] Dr. Uziel Reid Chloride [Moles/Vol] 107 mmol/L Normal 98-107 [facility] Comment on above: Performed By: #### B MP, PHOS, MG #### [facility] [address] [place] [address] Dr. zUiel Reid CO2 [Moles/Vol] 34.7 mmol/L Critically high 22.0-30.0 [facility] Comment on above: Performed By: #### B MP, PHOS, MG #### [facility] [address] [address] [address] Uziel Reid Creatinine [Mass/Vol] 0.64 mg/dL Critically low 0.66-1.25 [facility] Comment on above: Performed By: #### B MP, PHOS, MG #### [facility] [address] [address] [address] Uziel Reid EGFR-AF CHINESE >60 Normal >=60 [facility] Comment on above: Performed By: #### B MP, PHOS, MG #### [facility] [address] [address] [address] Uziel Reid EGFR-NON AF CHINESE >60 Normal >=60 [facility] Comment on above: Performed By: #### B MP, PHOS, MG #### [facility] [address] [address] [address] Uziel Reid Globulin (S) [Mass/Vol] 3.3 g/dL Normal [facility] Comment on above: Performed By: #### B MP, PHOS, MG #### [facility] [address] [address] [address] Uziel Reid Glucose [Mass/Vol] 187 mg/dL Critically high 74-106 T [facility] Comment on above: Performed By: #### B MP, PHOS, MG #### [facility] [address] [address] [address] Uziel Reid Potassium [Moles/Vol] 3.2 mmol/L Critically low 3.4-5.0 [facility] Comment on above: Performed By: #### B MP, PHOS, MG #### [facility] [address] [address] [address] Uziel Reid Protein [Mass/Vol] 5.1 g/dL Critically low 6.1-8.2 Th [facility] Comment on above: Performed By: #### B MP, PHOS, MG #### [facility] [address] [address] [address] Uziel Reid Sodium [Moles/Vol] 144 mmol/L Normal 137-145 [facility] Comment on above: Performed By: #### B MP, PHOS, MG #### [facility] [address] [address] [address] Uziel Reid Urea nitrogen [Mass/Vol] 20.0 mg/dL Normal 9.0-20.0 [facility] Comment on above: Performed By: #### B MP, PHOS, MG #### [facility] [address] [address] [address] Uziel Reid Urea nitrogen/Creatinine [Mass ratio] 31.2 mg/mg Normal [facility] Comment on above: Performed By: #### B MP, PHOS, MG #### [facility] [address] [address] [address] Uziel Reid XR CHEST 1 Von [...] by: EDWARD SANCHEZ Date: 2021-08-06 10:15 Normal [facility] POINT OF CARE GLUCOSEon Glucose [Mass/Vol] 90 mg/dL Normal 74-106 [facility] Comment on above: Performed By: #### B MP, PHOS, MG #### [facility] [address] [address] [address] Uziel Reid Glucose [Mass/Vol] 127 mg/dL Critically high 74-106 T [facility] Comment on above: Performed By: #### P OCGLUC #### [facility] [address] [address] [address] Uziel Reid XR CHEST 1 Von [...] TIFFANI RENTERIA Date: 2021-08-05 21:04 Normal [facility] CBC AUTO DIFFon 08-04-2021 BASO # 0.1 103/ul Normal 0.0-0.1 [facility] Comment on above: Performed By: #### P OCGLUC #### [facility] [address] [address] [address] Uziel Reid Basophils/100 WBC (Bld) 0.5 % Normal 0.2-2.0 [facility] Comment on above: Performed By: #### P OCGLUC #### [facility] [address] [address] [address] Uziel Reid EO # 0.1 103/ul Normal 0.0-0.7 [facility] Comment on above: Performed By: #### P OCGLUC #### [facility] [address] [address] [address] Uziel Reid Eosinophils/100 WBC (Bld) 0.4 % Critically low 0.9-7.0 [facility] Comment on above: Performed By: #### P OCGLUC #### [facility] [address] [address] [address] Uziel Reid Erythrocyte distribution width (RBC) [Ratio] 13.4 % Normal 11.0-15.0 [facility] Comment on above: Performed By: #### P OCGLUC #### [facility] [address] [place] [address] Dr. Uziel Reid Hematocrit (Bld) [Volume fraction] 41.1 % Critically low 42.0-54.0 [facility] Comment on above: Performed By: #### P OCGLUC #### [facility] [address] [place] [address] Dr. Uziel Reid Hemoglobin (Bld) [Mass/Vol] 13.1 g/dL Critically low 14.0-18.0 [facility] Comment on above: Performed By: #### P OCGLUC #### [facility] [address] [place] [address] Dr. Uziel Reid IG # 0.20 10e3/ul Critically high 0.00-0.03 [facility] Comment on above: Performed By: #### P OCGLUC #### [facility] [address] [place] [address] Dr. Uziel Reid IG % 1.5 % Critically high 0.0-0.5 [facility] Comment on above: Performed By: #### P OCGLUC #### [facility] [address] [place] [address] Dr. Uziel Reid LYMPH # 0.9 103/ul Critically low 1.2-3.8 [facility] Comment on above: Performed By: #### P OCGLUC #### [facility] [address] [place] [address] Dr. Uziel Reid Lymphocytes/100 WBC (Bld) 6.5 % Critically low 20.5-60.0 [facility] Comment on above: Performed By: #### P OCGLUC #### [facility] [address] [place] [address] Dr. Uziel Reid MANUAL DIFF REQ NO Normal [facility] Comment on above: Performed By: #### P OCGLUC #### [facility] [address] [place] [address] Dr. Uziel Reid MCH (RBC) [Entitic mass] 29.9 pg Normal 25.9-34.0 [facility] Comment on above: Performed By: #### P OCGLUC #### [facility] [address] [place] [address] Dr. Uziel Reid MCHC (RBC) [Mass/Vol] 31.9 g/dL Normal 29.9-35.2 [facility] Comment on above: Performed By: #### P OCGLUC #### [facility] [address] [place] [address] Dr. Uziel Reid MCV (RBC) [Entitic vol] 93.8 fL Normal 80.0-94.0 [facility] Comment on above: Performed By: #### P OCGLUC #### [facility] [address] [place] [address] Dr. Uziel Reid MONO # 1.5 103/ul Critically high 0.3-0.8 [facility] Comment on above: Performed By: #### P OCGLUC #### [facility] [address] [place] [address] Dr. Uziel Reid Monocytes/100 WBC (Bld) 11.2 % Normal 1.7-12.0 [facility] Comment on above: Performed By: #### P OCGLUC #### [facility] [address] [place] [address] Dr. Uziel Reid NEUT # 10.6 103/ul Critically high 1.4-6.5 [facility] Comment on above: Performed By: #### P OCGLUC #### [facility] [address] [place] [address] Dr. Uziel Reid Neutrophils/100 WBC (Bld) 79.9 % Critically high 43.0-75.0 [facility] Comment on above: Performed By: #### P OCGLUC #### [facility] [address] [address] [address] Uziel Reid Platelet mean volume (Bld) [Entitic vol] 10.3 fL Normal 9.5-13.5 [facility] Comment on above: Performed By: #### P OCGLUC #### [facility] [address] [address] [address] Uziel Reid PLT 224 103/ul Normal 150-450 [facility] Comment on above: Performed By: #### P OCGLUC #### [facility] [address] [place] [address] Dr. Uziel Reid RBC 4.38 106/ul Critically low 4.70-6.10 [facility] Comment on above: Performed By: #### P OCGLUC #### [facility] [address] [place] [address] Dr. Uziel Reid WBC 13.3 103/ul Critically high 4.0-11.0 [facility] Comment on above: Performed By: #### P OCGLUC #### [facility] [address] [place] [address] Dr. Uziel Reid POINT OF CARE GLUCOSEon Glucose [Mass/Vol] 142 mg/dL Critically high 74-106 [facility] Comment on above: Performed By: #### C BCMAN #### [facility] [address] [place] [address] Dr. Uziel Reid Glucose [Mass/Vol] 119 mg/dL Critically high 74-106 [facility] Comment on above: Performed By: #### H STROPN #### [facility] [address] [place] [address] Dr. Uziel Reid PROF CHEM 8 (BAS METB)on Anion gap [Moles/Vol] 10.9 mmol/L Normal [facility] Comment on above: Performed By: #### P OCGLUC #### [facility] [address] [place] [address] Dr. Uziel Reid Calcium [Mass/Vol] 7.6 mg/dL Critically low 8.4-10.2 [facility] Comment on above: Performed By: #### P OCGLUC #### [facility] [address] [address] [address] Uziel Reid Chloride [Moles/Vol] 106 mmol/L Normal 98-107 [facility] Comment on above: Performed By: #### P OCGLUC #### [facility] [address] [address] [address] Uziel Reid CO2 [Moles/Vol] 23.3 mmol/L Normal 22.0-30.0 [facility] [facility] Comment on above: Performed By: #### P OCGLUC #### [facility] [address] [place] [address] Dr. Uziel Reid Creatinine [Mass/Vol] 0.58 mg/dL Critically low 0.66-1.25 [facility] Comment on above: Performed By: #### P OCGLUC #### [facility] [address] [address] [address] Uziel Reid EGFR-AF CHINESE >60 Normal >=60 [facility] Comment on above: Performed By: #### P OCGLUC #### [facility] [address] [address] [address] Uziel Reid EGFR-NON AF CHINESE >60 Normal >=60 [facility] Comment on above: Performed By: #### P OCGLUC #### [facility] [address] [address] [address] Uziel Reid Glucose [Mass/Vol] 128 mg/dL Critically high 74-106 [facility] Comment on above: Performed By: #### P OCGLUC #### [facility] [address] [address] [address] Uziel Reid Potassium [Moles/Vol] 4.2 mmol/L Normal 3.4-5.0 [facility] Comment on above: Performed By: #### P OCGLUC #### [facility] [address] [address] [address] Uziel Reid Sodium [Moles/Vol] 136 mmol/L Critically low 137-145 Th [facility] Comment on above: Performed By: #### P OCGLUC #### [facility] [address] [address] [address] Uziel Reid Urea nitrogen [Mass/Vol] 32.0 mg/dL Critically high 9.0-20.0 [facility] Comment on above: Performed By: #### P OCGLUC #### [facility] [address] [address] [address] Uziel Reid Urea nitrogen/Creatinine [Mass ratio] 55.2 mg/mg Normal [facility] Comment on above: Performed By: #### P OCGLUC #### [facility] [address] [address] [address] Uziel Reid XR KUB 1 VIEWon [...] by: ZHANE DUCKWORTH Date: 2021-08-04 15:49 Normal [facility] POINT OF CARE GLUCOSEon Glucose [Mass/Vol] 132 mg/dL Critically high 74-106 [facility] Comment on above: Performed By: #### C BCMAN #### [facility] [address] [address] [address] Uziel Reid Glucose [Mass/Vol] 122 mg/dL Critically high 74-106 [facility] Comment on above: Performed By: #### B MP, PHOS, MG #### [facility] [address] [address] [address] Uziel Reid Glucose [Mass/Vol] 124 mg/dL Critically high 74-106 [facility] Comment on above: Performed By: #### B YEISON TALBOTS, MG #### [facility] [address] [place], [place] [address] Dr. Uziel Reid POINT OF CARE GLUCOSEon 0 Glucose [Mass/Vol] 127 mg/dL Critically high 74-106 [facility] Comment on above: Performed By: #### B YEISON TALBOTS, MG #### [facility] [address] [place], [place] [address] Dr. Uziel Reid XR KUB 1 VIEWon [...] ROBERT BASILIO Date: 2021-08-02 15:21 Normal [facility] XR KUB 1 VIEW KUB; 08/02/2021 8:48 [...] GERARDO ESPINOSA Date: 2021-08-02 12:31 Normal [facility] CBC W MANUAL DIFFon 08-01-19 22 ATYPICAL LYMPH # Normal [facility] Comment on above: Performed By: #### B MP, PHOS, MG #### [facility] [address] [address] [address] Uziel Reid ATYPICAL LYMPH % Normal [facility] Comment on above: Performed By: #### B MP, PHOS, MG #### [facility] [address] [address] [address] Uziel Reid BAND # 0.7 103/ul Critically high 0.0-0.3 [facility] Comment on above: Performed By: #### B MP, PHOS, MG #### [facility] [address] [address] [address] Uziel Reid BAND % 9 % Critically high 0-5 [facility] Comment on above: Performed By: #### B MP, PHOS, MG #### [facility] [address] [place] [address] Dr. Uziel Reid BASOM # 0.00 103/ul Normal 0.00-0.10 [facility] Comment on above: Performed By: #### B MP, PHOS, MG #### [facility] [address] [address] [address] Uziel Reid BASOM % 0.0 % Critically low 0.2-2.0 [facility] Comment on above: Performed By: #### B MP, PHOS, MG #### [facility] [address] [address] [address] Uziel Reid BLAST # Normal [facility] Comment on above: Performed By: #### B MP, PHOS, MG #### [facility] [address] [address] [address] Uziel Reid BLAST % Normal [facility] Comment on above: Performed By: #### B MP, PHOS, MG #### [facility] [address] [place] [address] Dr. Uziel Reid CORRECTED WBC Normal 4.0-11.0 [facility] Comment on above: Performed By: #### B MP, PHOS, MG #### [facility] [address] [address] [address] Uziel Reid EOS # 0.00 103/ul Normal 0.00-0.70 [facility] Comment on above: Performed By: #### B MP, PHOS, MG #### [facility] [address] [place] [address] Dr. Uziel Reid EOS% 0.0 % Critically low 0.9-7.0 [facility] Comment on above: Performed By: #### B MP, PHOS, MG #### [facility] [address] [place] [address] Dr. Uziel Reid HCT 38.1 % Critically low 42.0-54.0 [facility] Comment on above: Performed By: #### B MP, PHOS, MG #### [facility] [address] [place] [address] Dr. Uziel Reid HGB 12.2 g/dl Critically low 14.0-18.0 [facility] Comment on above: Performed By: #### B MP, PHOS, MG #### [facility] [address] [place] [address] Dr. Uziel Reid LYMPHM # 0.66 103/ul Critically low 1.20-3.80 [facility] Comment on above: Performed By: #### B MP, PHOS, MG #### [facility] [address] [place] [address] Dr. Uziel Reid LYMPHM% 9.0 % Critically low 20.5-60.0 [facility] Comment on above: Performed By: #### B MP, PHOS, MG #### [facility] [address] [place] [address] Dr. Uziel Reid MCH 29.8 pg Normal 25.9-34.0 [facility] Comment on above: Performed By: #### B MP, PHOS, MG #### [facility] [address] [place] [address] Dr. Uziel Reid MCHC 32.0 g/dl Normal 29.9-35.2 [facility] Comment on above: Performed By: #### B MP, PHOS, MG #### [facility] [address] [address] [address] Uziel Reid MCV 92.9 fL Normal 80.0-94.0 [facility] Comment on above: Performed By: #### B MP, PHOS, MG #### [facility] [address] [address] [address] Uziel Reid METAMYELOCYTE # Normal [facility] Comment on above: Performed By: #### B MP, PHOS, MG #### [facility] [address] [place] [address] Dr. Uziel Reid METAMYELOCYTE % Normal [facility] Comment on above: Performed By: #### B MP, PHOS, MG #### [facility] [address] [place] [address] Dr. Uziel Reid MONOM# 1.02 103/ul Critically high 0.30-0.80 [facility] Comment on above: Performed By: #### B MP, PHOS, MG #### [facility] [address] [place] [address] Dr. Uziel Reid MONOM% 14.0 % Critically high 1.7-12.0 [facility] Comment on above: Performed By: #### B MP, PHOS, MG #### [facility] [address] [place] [address] Dr. Uziel Reid MPV 9.9 fL Normal 9.5-13.5 [facility] Comment on above: Performed By: #### B MP, PHOS, MG #### [facility] [address] [place] [address] Dr. Uziel Reid MYELOCYTE # Normal [facility] Comment on above: Performed By: #### B MP, PHOS, MG #### [facility] [address] [place] [address] Dr. Uziel Reid MYELOCYTE % Normal [facility] Comment on above: Performed By: #### B MP, PHOS, MG #### [facility] [address] [place] [address] Dr. Uziel Reid NRBC Normal [facility] Comment on above: Performed By: #### B MP, PHOS, MG #### [facility] [address] [address] [address] Uziel Reid PLT 237 103/ul Normal 150-450 [facility] Comment on above: Performed By: #### B MP, PHOS, MG #### [facility] [address] [address] [address] Uziel Reid RBC 4.10 106/ul Critically low 4.70-6.10 [facility] Comment on above: Performed By: #### B MP, PHOS, MG #### [facility] [address] [address] [address] Uziel Reid RDW 13.5 % Normal 11.0-15.0 [facility] Comment on above: Performed By: #### B MP, PHOS, MG #### [facility] [address] [address] [address] Uziel Reid SEG # 4.96 103/ul Normal 1.40-6.50 [facility] Comment on above: Performed By: #### B MP, PHOS, MG #### [facility] [address] [address] [address] Uziel Reid SEG % 68.0 % Normal 43.0-75.0 [facility] Comment on above: Performed By: #### B MP, PHOS, MG #### [facility] [address] [address] [address] Uziel Reid WBC 7.3 103/ul Normal 4.0-11.0 [facility] Comment on above: Performed By: #### B MP, PHOS, MG #### [facility] [address] [address] [address] Uziel Reid POINT OF CARE GLUCOSEon Glucose [Mass/Vol] 158 mg/dL Critically high 74-106 [facility] Comment on above: Performed By: #### B MP, PHOS, MG #### [facility] [address] [address] [address] Uziel Reid PROF 14(COMP METB)on 022 Albumin [Mass/Vol] 2.4 g/dL Critically low 3.5-5.0 [facility] Comment on above: Performed By: #### C FERDINAND #### [facility] [address] [place] [address] Dr. Uziel Reid Albumin/Globulin [Mass ratio] 0.5 {ratio} Normal [facility] Comment on above: Performed By: #### C FERDINAND #### [facility] [address] [place] [address] Dr. Uziel Reid ALP [Catalytic activity/Vol] 84 U/L Normal 38-126 [facility] Comment on above: Performed By: #### C FERDINAND #### [facility] [address] [place] [address] Dr. Uziel Reid ALT [Catalytic activity/Vol] 26 U/L Normal 21-72 [facility] Comment on above: Performed By: #### C FERDINAND #### [facility] [address] [place] [address] Dr. Uziel Reid Anion gap [Moles/Vol] 9.8 mmol/L Normal [facility] Comment on above: Performed By: #### C FERDINAND #### [facility] [address] [place] [address] Dr. Uziel Reid AST [Catalytic activity/Vol] 17 U/L Normal 17-59 [facility] Comment on above: Performed By: #### C FERDINAND #### [facility] [address] [place] [address] Dr. Uziel Reid Bilirubin [Mass/Vol] 0.9 mg/dL Normal 0.2-1.3 [facility] Comment on above: Performed By: #### C FERDINAND #### [facility] [address] [place] [address] Dr. Uziel Reid Calcium [Mass/Vol] 8.9 mg/dL Normal 8.4-10.2 [facility] Comment on above: Performed By: #### C FERDINAND #### [facility] [address] [place] [address] Dr. Uziel Reid Chloride [Moles/Vol] 94 mmol/L Critically low 98-107 [facility] Comment on above: Performed By: #### C BCSARIKA #### [facility] [address] [address] [address] Uziel Reid CO2 [Moles/Vol] 30.9 mmol/L Critically high 22.0-30.0 [facility] Comment on above: Performed By: #### C BCSRAIKA #### [facility] [address] [address] [address] Uziel Reid Creatinine [Mass/Vol] 1.21 mg/dL Normal 0.66-1.25 [facility] Comment on above: Performed By: #### C FERDINAND #### [facility] [address] [place] [address] Dr. Uziel Reid EGFR-AF CHINESE >60 Normal >=60 [facility] Comment on above: Performed By: #### C FERDINAND #### [facility] [address] [address] [address] Uziel Reid EGFR-NON AF CHINESE 57 mL/min/1.73m2 Critically low >=60 [facility] Comment on above: Performed By: #### C BCSARIKA #### [facility] [address] [address] [address] Uziel Reid Globulin (S) [Mass/Vol] 4.5 g/dL Normal [facility] Comment on above: Performed By: #### C BCSARIKA #### [facility] [address] [address] [address] Uziel Reid Glucose [Mass/Vol] 166 mg/dL Critically high 74-106 [facility] Comment on above: Performed By: #### C BCSARIKA #### [facility] [address] [address] [address] Uziel Reid Potassium [Moles/Vol] 3.7 mmol/L Normal 3.4-5.0 [facility] Comment on above: Performed By: #### C BCSARIKA #### [facility] [address] [address] [address] Uziel Reid Protein [Mass/Vol] 6.9 g/dL Normal 6.1-8.2 [facility] Comment on above: Performed By: #### C BLAYNESARIKA #### [facility] [address] [address] [address] Uziel Reid Sodium [Moles/Vol] 131 mmol/L Critically low 137-145 Th [facility] Comment on above: Performed By: #### C FERDINAND #### [facility] [address] [address] [address] Uziel Reid Urea nitrogen [Mass/Vol] 72.0 mg/dL Critically high 9.0-20.0 [facility] Comment on above: Performed By: #### C FERDINAND #### [facility] [address] [place] [address] Dr. Uziel Reid Urea nitrogen/Creatinine [Mass ratio] 59.5 mg/mg Normal [facility] Comment on above: Performed By: #### C FERDINAND #### [facility] [address] [place] [address] Dr. Uziel Reid XR KUB 1 VIEWon [...] by: ROBERT BASILIO Date: 2021-08-01 20:28 Normal [facility] XR KUB 1 VIEW EXAMINATION: XR KUB [...] ROBERT BASILIO Date: 2021-08-01 13:26 Normal [facility] XR SMALL BOWEL FOLLOW THOUGH on 08-01-2021 XR SMALL BOWEL FOLLOW THOUGH EXAMINATION: XR SMALL BOWEL FOLLOW THOUGH HISTORY: Swollen abdomen COMPARISON: No relevant comparison available. FLUOROSCOPY TIME: Fluoro time - none. TECHNIQUE: Small bowel series was performed in the usual manner. No home administrator abdominal radiograph was performed. Standard level fluoroscopic [...] ROBERT BASILIO Date: 2021-08-01 17:36 Normal [facility] POINT OF CARE GLUCOSEon 12-3 Glucose [Mass/Vol] 178 mg/dL Critically high 74-106 [facility] Comment on above: Performed By: #### C BCMAN #### [facility] [address] [place] [address] Dr. Uziel Reid Glucose [Mass/Vol] 146 mg/dL Critically high 74-106 [facility] Comment on above: Performed By: #### P OCGLUC #### [facility] [address] [place] [address] Dr. Uziel Reid BNPon 07-30-2021 Natriuretic peptide B (Bld) [Mass/Vol] 800.0 pg/mL Normal <=1,800.0 [facility] Comment on above: Performed By: #### B MP, PHOS, MG #### [facility] [address] [place] [address] Dr. Uziel Reid CBC AUTO DIFFon 07-30-2021 BASO # 0.0 103/ul Normal 0.0-0.1 [facility] Comment on above: Performed By: #### B MP, PHOS, MG #### [facility] [address] [place] [address] Dr. Uziel Reid Basophils/100 WBC (Bld) 0.1 % Critically low 0.2-2.0 [facility] Comment on above: Performed By: #### B MP, PHOS, MG #### [facility] [address] [place] [address] Dr. Uziel Reid EO # 0.0 103/ul Normal 0.0-0.7 [facility] Comment on above: Performed By: #### B MP, PHOS, MG #### [facility] [address] [place] [address] Dr. Uziel Reid Eosinophils/100 WBC (Bld) 0.1 % Critically low 0.9-7.0 [facility] Comment on above: Performed By: #### B MP, PHOS, MG #### [facility] [address] [place] [address] Dr. Uziel Reid Erythrocyte distribution width (RBC) [Ratio] 13.8 % Normal 11.0-15.0 [facility] Comment on above: Performed By: #### B MP, PHOS, MG #### [facility] [address] [place] [address] Dr. Uziel Reid Hematocrit (Bld) [Volume fraction] 35.1 % Critically low 42.0-54.0 [facility] Comment on above: Performed By: #### B MP, PHOS, MG #### [facility] [address] [place] [address] Dr. Uziel Reid Hemoglobin (Bld) [Mass/Vol] 10.8 g/dL Critically low 14.0-18.0 [facility] Comment on above: Performed By: #### B MP, PHOS, MG #### [facility] [address] [place] [address] Dr. Uziel Reid IG # 0.15 10e3/ul Critically high 0.00-0.03 [facility] Comment on above: Performed By: #### B MP, PHOS, MG #### [facility] [address] [place] [address] Dr. Uziel Reid IG % 0.9 % Critically high 0.0-0.5 [facility] Comment on above: Performed By: #### B DAHIANA PHOS, MG #### [facility] [address] [place] [address] Dr. Uziel Reid LYMPH # 0.8 103/ul Critically low 1.2-3.8 [facility] Comment on above: Performed By: #### B MP PHOS, MG #### [facility] [address] [place] [address] Dr. Uziel Reid Lymphocytes/100 WBC (Bld) 5.2 % Critically low 20.5-60.0 [facility] Comment on above: Performed By: #### B MP PHOS, MG #### [facility] [address] [place] [address] Dr. Uziel Reid MANUAL DIFF REQ NO Normal [facility] Comment on above: Performed By: #### B DAHIANA PHOS, MG #### [facility] [address] [place] [address] Dr. Uziel Reid MCH (RBC) [Entitic mass] 30.1 pg Normal 25.9-34.0 [facility] Comment on above: Performed By: #### B DAHIANA PHOS, MG #### [facility] [address] [place] [address] Dr. Uziel Reid MCHC (RBC) [Mass/Vol] 30.8 g/dL Normal 29.9-35.2 [facility] Comment on above: Performed By: #### B MP, PHOS, MG #### [facility] [address] [place] [address] Dr. Uziel Reid MCV (RBC) [Entitic vol] 97.8 fL Critically high 80.0-94.0 [facility] Comment on above: Performed By: #### B MP, PHOS, MG #### [facility] [address] [place] [address] Dr. Uziel Reid MONO # 1.2 103/ul Critically high 0.3-0.8 [facility] Comment on above: Performed By: #### B MP, PHOS, MG #### [facility] [address] [place] [address] Dr. Uziel Reid Monocytes/100 WBC (Bld) 7.5 % Normal 1.7-12.0 [facility] Comment on above: Performed By: #### B MP, PHOS, MG #### [facility] [address] [place] [address] Dr. Uziel Reid NEUT # 14.0 103/ul Critically high 1.4-6.5 [facility] Comment on above: Performed By: #### B MP, PHOS, MG #### [facility] [address] [place] [address] Dr. Uziel Reid Neutrophils/100 WBC (Bld) 86.2 % Critically high 43.0-75.0 [facility] Comment on above: Performed By: #### B MP, PHOS, MG #### [facility] [address] [place] [address] Dr. Uziel Reid Platelet mean volume (Bld) [Entitic vol] 10.7 fL Normal 9.5-13.5 [facility] Comment on above: Performed By: #### B MP, PHOS, MG #### [facility] [address] [place] [address] Dr. Uziel Reid PLT 165 103/ul Normal 150-450 [facility] Comment on above: Performed By: #### B MP, PHOS, MG #### [facility] [address] [place] [address] Dr. Uziel Reid RBC 3.59 106/ul Critically low 4.70-6.10 [facility] Comment on above: Performed By: #### B MP, PHOS, MG #### [facility] [address] [place] [address] Dr. Uziel Reid WBC 16.2 103/ul Critically high 4.0-11.0 [facility] Comment on above: Performed By: #### B MP, PHOS, MG #### [facility] [address] [place] [address] Dr. Uziel Reid PROF CHEM 8 (BAS METB)on Anion gap [Moles/Vol] 8.9 mmol/L Normal [facility] Comment on above: Performed By: #### B MP, PHOS, MG #### [facility] [address] [place] [address] Dr. Uziel Reid Calcium [Mass/Vol] 7.4 mg/dL Critically low 8.4-10.2 [facility] Comment on above: Performed By: #### B MP, PHOS, MG #### [facility] [address] [place] [address] Dr. Uziel Reid Chloride [Moles/Vol] 96 mmol/L Critically low 98-107 [facility] Comment on above: Performed By: #### B MP, PHOS, MG #### [facility] [address] [place] [address] Dr. Uziel Reid CO2 [Moles/Vol] 30.0 mmol/L Normal 22.0-30.0 [facility] Comment on above: Performed By: #### B MP, PHOS, MG #### [facility] [address] [place] [address] Dr. Uziel Reid Creatinine [Mass/Vol] 1.12 mg/dL Normal 0.66-1.25 [facility] Comment on above: Performed By: #### B MP, PHOS, MG #### [facility] [address] [place] [address] Dr. Uziel Reid EGFR-AF CHINESE >60 Normal >=60 [facility] Comment on above: Performed By: #### B MP, PHOS, MG #### [facility] [address] [place] [address] Dr. Uziel Reid EGFR-NON AF CHINESE >60 Normal >=60 [facility] [facility] Comment on above: Performed By: #### B MP, PHOS, MG #### [facility] [address] [place] [address] Dr. Uziel Reid Glucose [Mass/Vol] 125 mg/dL Critically high 74-106 T [facility] Comment on above: Performed By: #### B MP, PHOS, MG #### [facility] [address] [address] [address] Uziel Reid Potassium [Moles/Vol] 3.9 mmol/L Normal 3.4-5.0 [facility] Comment on above: Performed By: #### B MP, PHOS, MG #### [facility] [address] [address] [address] Uziel Reid Sodium [Moles/Vol] 131 mmol/L Critically low 137-145 Th [facility] Comment on above: Performed By: #### B MP, PHOS, MG #### [facility] [address] [address] [address] Uziel Reid Urea nitrogen [Mass/Vol] 37.0 mg/dL Critically high 9.0-20.0 [facility] Comment on above: Performed By: #### B MP, PHOS, MG #### [facility] [address] [place] [address] Dr. Uziel Reid Urea nitrogen/Creatinine [Mass ratio] 33.0 mg/mg Normal [facility] Comment on above: Performed By: #### B MP, PHOS, MG #### [facility] [address] [place] [address] Dr. Uziel Reid XR ABD FLAT_UPon 07-30-2021 [...] by: ZHANE DUCKWORTH Date: 2021-07-30 09:08 Normal [facility] XR CHEST 2 Von 07-30-2021 XR CHEST [...] ZHANE DUCKWORTH Date: 2021-07-30 09:05 Normal [facility] POINT OF CARE GLUCOSEon 12-2 Glucose [Mass/Vol] 144 mg/dL Critically high 74-106 [facility] Comment on above: Performed By: #### C BCMAN #### [facility] [address] [place] [address] Dr. Uziel Reid Glucose [Mass/Vol] 147 mg/dL Critically high 74-106 [facility] Comment on above: Performed By: #### B MP, PHOS, MG #### [facility] [address] [place] [address] Dr. Uziel Reid AMYLASEon 07-28-2021 AMYL <30 Critically low 31-110 [facility] Comment on above: Performed By: #### H STROPN #### [facility] [address] [place] [address] Dr. Uziel Reid CBC AUTO DIFFon 07-28-2021 BASO # 0.1 103/ul Normal 0.0-0.1 [facility] Comment on above: Performed By: #### B MP, PHOS, MG #### [facility] [address] [place] [address] Dr. Uziel Reid Basophils/100 WBC (Bld) 0.6 % Normal 0.2-2.0 [facility] Comment on above: Performed By: #### B MP, PHOS, MG #### [facility] [address] [place] [address] Dr. Uziel Reid EO # 0.2 103/ul Normal 0.0-0.7 [facility] Comment on above: Performed By: #### B MP, PHOS, MG #### [facility] [address] [place] [address] Dr. Uziel Reid Eosinophils/100 WBC (Bld) 1.8 % Normal 0.9-7.0 [facility] Comment on above: Performed By: #### B MP, PHOS, MG #### [facility] [address] [place] [address] Dr. Uziel Reid Erythrocyte distribution width (RBC) [Ratio] 13.0 % Normal 11.0-15.0 [facility] Comment on above: Performed By: #### B MP, PHOS, MG #### [facility] [address] [place] [address] Dr. Uziel Reid Hematocrit (Bld) [Volume fraction] 38.9 % Critically low 42.0-54.0 [facility] Comment on above: Performed By: #### B MP, PHOS, MG #### [facility] [address] [place] [address] Dr. Uziel Reid Hemoglobin (Bld) [Mass/Vol] 12.6 g/dL Critically low 14.0-18.0 [facility] Comment on above: Performed By: #### B MP, PHOS, MG #### [facility] [address] [place] [address] Dr. Uziel Reid IG # 0.05 10e3/ul Critically high 0.00-0.03 [facility] Comment on above: Performed By: #### B MP, PHOS, MG #### [facility] [address] [place] [address] Dr. Uziel Reid IG % 0.4 % Normal 0.0-0.5 [facility] Comment on above: Performed By: #### B MP, PHOS, MG #### [facility] [address] [place] [address] Dr. Uziel Reid LYMPH # 1.2 103/ul Normal 1.2-3.8 [facility] Comment on above: Performed By: #### B MP, PHOS, MG #### [facility] [address] [place] [address] Dr. Uziel Reid Lymphocytes/100 WBC (Bld) 10.0 % Critically low 20.5-60.0 [facility] Comment on above: Performed By: #### B MP, PHOS, MG #### [facility] [address] [place] [address] Dr. Uziel Reid MANUAL DIFF REQ NO Normal [facility] Comment on above: Performed By: #### B MP, PHOS, MG #### [facility] [address] [place] [address] Dr. Uziel Reid MCH (RBC) [Entitic mass] 30.3 pg Normal 25.9-34.0 [facility] Comment on above: Performed By: #### B MP, PHOS, MG #### [facility] [address] [place] [address] Dr. Uziel Reid MCHC (RBC) [Mass/Vol] 32.4 g/dL Normal 29.9-35.2 [facility] Comment on above: Performed By: #### B MP, PHOS, MG #### [facility] [address] [place] [address] Dr. Uziel Reid MCV (RBC) [Entitic vol] 93.5 fL Normal 80.0-94.0 [facility] Comment on above: Performed By: #### B MP, PHOS, MG #### [facility] [address] [place] [address] Dr. Uziel Reid MONO # 1.0 103/ul Critically high 0.3-0.8 [facility] Comment on above: Performed By: #### B MP, PHOS, MG #### [facility] [address] [place] [address] Dr. Uziel Reid Monocytes/100 WBC (Bld) 8.6 % Normal 1.7-12.0 [facility] Comment on above: Performed By: #### B MP, PHOS, MG #### [facility] [address] [place] [address] Dr. Uziel Reid NEUT # 9.2 103/ul Critically high 1.4-6.5 [facility] Comment on above: Performed By: #### B MP, PHOS, MG #### [facility] [address] [place] [address] Dr. Uziel Reid Neutrophils/100 WBC (Bld) 78.6 % Critically high 43.0-75.0 [facility] Comment on above: Performed By: #### B DAHIANA PHOS, MG #### [facility] [address] [address] [address] Uziel Reid Platelet mean volume (Bld) [Entitic vol] 10.9 fL Normal 9.5-13.5 [facility] Comment on above: Performed By: #### B MP PHOS, MG #### [facility] [address] [address] [address] Uziel Reid PLT 159 103/ul Normal 150-450 [facility] Comment on above: Performed By: #### B MP PHOS, MG #### [facility] [address] [address] [address] Uziel Reid RBC 4.16 106/ul Critically low 4.70-6.10 [facility] Comment on above: Performed By: #### B DAHIANA PHOS, MG #### [facility] [address] [address] [address] Uziel Reid WBC 11.8 103/ul Critically high 4.0-11.0 [facility] Comment on above: Performed By: #### B DAHIANA PHOS, MG #### [facility] [address] [place] [address] ABD/PELVIS WO CONon [...] ZHANE DUCKWORTH Date: 2021-07-28 07:18 Normal [facility] CULTURE BLOODon 07-28-2021 Microscopic examination of blood, culture Culture Observations: NO GROWTH AT 5 DAYS. Normal [facility] Comment on above: Performed By: #### H STROPN #### [facility] [address] [address] [address] Uziel Reid Covid-19 PCR (CVDTBH)on 07-02 SARS-CoV-2 (COVID-19) RNA ALFONSO+probe Ql (Unsp spec) Not detected Normal NOT DETECTED [facility] Comment on above: Result Comment: This test is not yet approved or cleared by the [place] FDA. When there are no FDA-approved or cleared tests available, and other criteria are met, FDA can make tests available under an emergency access mechanism called an Emergency Use Authorization (EUA). The EUA for this test is supported by the [place] of Health and Human Service's (HHS's) declaration [...] SARS-CoV-2. Performed By: #### C FERDINAND #### [facility] [address] [place] [address] Dr. Uziel Reid LACTATE/LACTIC ACIDon 2020 Lactate [Moles/Vol] 1.2 mmol/L Normal 0.7-2.0 [facility] Comment on above: Performed By: #### B MP, PHOS, MG #### [facility] [address] [place] [address] Dr. Uziel Reid LIPASEon 07-28-2021 Lipase [Catalytic activity/Vol] 32.0 U/L Normal 23.0-300.0 [facility] Comment on above: Performed By: #### H PATRICA #### [facility] [address] [place] [address] Dr. Uziel Reid PROF 14(COMP METB)on 021 Albumin [Mass/Vol] 3.1 g/dL Critically low 3.5-5.0 [facility] Comment on above: Performed By: #### C FERDINAND #### [facility] [address] [place] [address] Dr. Uziel Reid Albumin/Globulin [Mass ratio] 0.8 {ratio} [facility] Comment on above: Performed By: #### C FERDINAND #### [facility] [address] [place] [address] Dr. Uziel Reid ALP [Catalytic activity/Vol] 116 U/L Normal 38-126 [facility] Comment on above: Performed By: #### C FERDINAND #### [facility] [address] [place] [address] Dr. Uziel Reid ALT [Catalytic activity/Vol] 36 U/L Normal 21-72 [facility] Comment on above: Performed By: #### C FERDINAND #### [facility] [address] [place] [address] Dr. Uziel Reid Anion gap [Moles/Vol] 11.3 mmol/L Normal [facility] Comment on above: Performed By: #### C BLAYNESARIKA #### [facility] [address] [address] [address] Uziel Reid AST [Catalytic activity/Vol] 25 U/L Normal 17-59 [facility] Comment on above: Performed By: #### C BCMAN #### [facility] [address] [address] [address] Uziel Reid Bilirubin [Mass/Vol] 0.9 mg/dL Normal 0.2-1.3 [facility] Comment on above: Performed By: #### C BCSARIKA #### [facility] [address] [address] [address] Uziel Reid Calcium [Mass/Vol] 8.4 mg/dL Normal 8.4-10.2 [facility] Comment on above: Performed By: #### C BCSARIKA #### [facility] [address] [place] [address] Dr. Uziel Reid Chloride [Moles/Vol] 97 mmol/L Critically low 98-107 [facility] Comment on above: Performed By: #### C BCSARIKA #### [facility] [address] [address] [address] Uziel Reid CO2 [Moles/Vol] 29.4 mmol/L Normal 22.0-30.0 [facility] Comment on above: Performed By: #### C BCSARIKA #### [facility] [address] [address] [address] Uziel Reid Creatinine [Mass/Vol] 0.86 mg/dL Normal 0.66-1.25 [facility] Comment on above: Performed By: #### C BCSARIKA #### [facility] [address] [address] [address] Uziel Reid EGFR-AF CHINESE >60 Normal >=60 [facility] Comment on above: Performed By: #### C BCSARIKA #### [facility] [address] [address] [address] Uziel Reid EGFR-NON AF CHINESE >60 Normal >=60 [facility] Comment on above: Performed By: #### C BCSARIKA #### [facility] [address] [address] [address] Uziel Reid Globulin (S) [Mass/Vol] 4.0 g/dL Normal [facility] Comment on above: Performed By: #### C FERDINAND #### [facility] [address] [address] [address] Uziel Reid Glucose [Mass/Vol] 181 mg/dL Critically high 74-106 T [facility] Comment on above: Performed By: #### C FERDINAND #### [facility] [address] [address] [address] Uziel Reid Potassium [Moles/Vol] 3.7 mmol/L Normal 3.4-5.0 [facility] Comment on above: Performed By: #### C FERDINAND #### [facility] [address] [address] [address] Uziel Reid Protein [Mass/Vol] 7.1 g/dL Normal 6.1-8.2 [facility] Comment on above: Performed By: #### C FERDINAND #### [facility] [address] [address] [address] Uziel Reid Sodium [Moles/Vol] 134 mmol/L Critically low 137-145 Th [facility] Comment on above: Performed By: #### C FERDINAND #### [facility] [address] [address] [address] Uziel Reid Urea nitrogen [Mass/Vol] 18.0 mg/dL Normal 9.0-20.0 [facility] Comment on above: Performed By: #### C FERDINAND #### [facility] [address] [place] [address] Dr. Uziel Reid Urea nitrogen/Creatinine [Mass ratio] 20.9 mg/mg Normal [facility] Comment on above: Performed By: #### C FERDINAND #### [facility] [address] [place] [address] Dr. Uziel Reid XR CHEST 1 Von [...] by: SUPA STONE Date: 2021-07-28 06:45 Normal [facility] GLYCOHEMOGLOBIN A1Con 2020 ADA RECOMMENDATION ADA THERAPEUTIC TARGET 6.0 - 7.0 ACTION SUGGESTED > 7.0 Normal [facility] Comment on above: Performed By: #### B MP, PHOS, MG #### [facility] [address] [address] [address] Uziel Reid Glucose [Mass/Vol] 137 mg/dL Normal [facility] Comment on above: Performed By: #### B MP, PHOS, MG #### [facility] [address] [address] [address] Uziel Reid HbA1c (Bld) [Mass fraction] 6.4 % Critically high <=6.0 [facility] Comment on above: Performed By: #### B MP, PHOS, MG #### [facility] [address] [address] [address] Uziel Reid Vital Signs Date Time Vital Sign Value Performing Clinician Facility 09-10-2024 14:00-0500 Diastolic blood pressure 72 mm[Hg] Annette Whitfield HYDROLOGICAL TECHNICAL OFFICER Work Phone: [facility] 09-10-2024 14:00-0500 Systolic blood pressure 122 mm[Hg] Annette Whitfield HYDROLOGICAL TECHNICAL OFFICER Work Phone: [facility] 09-10-2024 13:20-0500 Body mass index (BMI) [Ratio] 25.8 kg/m2 Annette Whitfield HYDROLOGICAL TECHNICAL OFFICER Work Phone: [facility] 09-10-2024 13:20-0500 Body temperature 98.29 [degF] Annette Whitfield HYDROLOGICAL TECHNICAL OFFICER Work Phone: [facility] 09-10-2024 13:20-0500 Body weight 85.09 kg Annette Aichholz HYDROLOGICAL TECHNICAL OFFICER Work Phone: [facility] 09-10-2024 13:20-0500 Heart rate 56 /min Annette Aichholz HYDROLOGICAL TECHNICAL OFFICER Work Phone: [facility] 09-10-2024 13:20-0500 Respiratory rate 18 /min Annette Aichholz HYDROLOGICAL TECHNICAL OFFICER Work Phone: [facility] 09-10-2024 13:20-0500 SaO2% (BldA) [Mass fraction] 96 % Annette Aichholz HYDROLOGICAL TECHNICAL OFFICER Work Phone: [facility] 06-14-2024 13:07-0500 Body height 181.6 cm Annette Aichholz HYDROLOGICAL TECHNICAL OFFICER Work Phone: [facility] 06-14-2024 13:07-0500 Body mass index (BMI) [Ratio] 25.31 kg/m2 Annette Aichholz HYDROLOGICAL TECHNICAL OFFICER Work Phone: [facility] 06-14-2024 13:07-0500 Body temperature 98.71 [degF] Annette Darrionhholz HYDROLOGICAL TECHNICAL OFFICER Work Phone: [facility] 06-14-2024 13:07-0500 Body weight 83.46 kg Annette Darironhholz HYDROLOGICAL TECHNICAL OFFICER Work Phone: [facility] 06-14-2024 13:07-0500 Diastolic blood pressure 82 mm[Hg] Annette Aichholz HYDROLOGICAL TECHNICAL OFFICER Work Phone: [facility] 06-14-2024 13:07-0500 Heart rate 59 /min Annette Aichholz HYDROLOGICAL TECHNICAL OFFICER Work Phone: [facility] 06-14-2024 13:07-0500 Respiratory rate 18 /min Annette Aichholz HYDROLOGICAL TECHNICAL OFFICER Work Phone: [facility] 06-14-2024 13:07-0500 SaO2% (BldA) [Mass fraction] 97 % Annette Aichholz HYDROLOGICAL TECHNICAL OFFICER Work Phone: [facility] 06-14-2024 13:07-0500 Systolic blood pressure 118 mm[Hg] Annette Darrionhholz HYDROLOGICAL TECHNICAL OFFICER Work Phone: [facility] 05-14-2024 14:02-0400 Body height 181.6 cm Annettenatty Stonez HYDROLOGICAL TECHNICAL OFFICER Work Phone: [facility] 05-14-2024 14:02-0400 Body mass index (BMI) [Ratio] 25.47 kg/m2 Annettenatty Rossholz HYDROLOGICAL TECHNICAL OFFICER Work Phone: [facility] 05-14-2024 14:02-0400 Body temperature 98.1 [degF] Annette Stonez HYDROLOGICAL TECHNICAL OFFICER Work Phone: [facility] 05-14-2024 14:02-0400 Body weight 84.01 kg Annettenatty Stonez HYDROLOGICAL TECHNICAL OFFICER Work Phone: [facility] 05-14-2024 14:02-0400 Diastolic blood pressure 62 mm[Hg] Annette Codyholz HYDROLOGICAL TECHNICAL OFFICER Work Phone: [facility] 05-14-2024 14:02-0400 Heart rate 62 /min Annettenatty Stonez HYDROLOGICAL TECHNICAL OFFICER Work Phone: [facility] 05-14-2024 14:02-0400 Respiratory rate 18 /min Annette Chasez HYDROLOGICAL TECHNICAL OFFICER Work Phone: [facility] 05-14-2024 14:02-0400 SaO2% (BldA) [Mass fraction] 94 % Annette Chasez HYDROLOGICAL TECHNICAL OFFICER Work Phone: [facility] 05-14-2024 14:02-0400 Systolic blood pressure 126 mm[Hg] Annettenatty Stonez HYDROLOGICAL TECHNICAL OFFICER Work Phone: [facility] 04-11-2024 15:26-0400 Body height 180.3 cm Sohan Meek DO Work Phone: [facility] 04-11-2024 15:26-0400 Body mass index (BMI) [Ratio] 25.86 kg/m2 Sohan Meek DO Work Phone: [facility] 04-11-2024 15:26-0400 Body weight 84.1 kg Christopher Meek DO Work Phone: [facility] 04-11-2024 15:26-0400 Diastolic blood pressure 79 mm[Hg] Christopher Meek DO Work Phone: [facility] 04-11-2024 15:26-0400 Heart rate 78 /min Christopher Meek DO Work Phone: [facility] 04-11-2024 15:26-0400 SaO2% (BldA) [Mass fraction] 98 % Christopher Meek DO Work Phone: [facility] 04-11-2024 15:26-0400 Systolic blood pressure 136 mm[Hg] Christopher Emek DO Work Phone: [facility] 09-12-2023 13:34-0500 Body height 181.6 cm Annette Nahid HYDROLOGICAL TECHNICAL OFFICER Work Phone: [facility] 09-12-2023 13:34-0500 Body mass index (BMI) [Ratio] 25.44 kg/m2 Annette Nahid HYDROLOGICAL TECHNICAL OFFICER Work Phone: [facility] 09-12-2023 13:34-0500 Body temperature 96.6 [degF] Annette Nahid HYDROLOGICAL TECHNICAL OFFICER Work Phone: [facility] 09-12-2023 13:34-0500 Body weight 83.92 kg Annette Nahid HYDROLOGICAL TECHNICAL OFFICER Work Phone: [facility] 09-12-2023 13:34-0500 Diastolic blood pressure 76 mm[Hg] Annette Nahid HYDROLOGICAL TECHNICAL OFFICER Work Phone: [facility] 09-12-2023 13:34-0500 Heart rate 83 /min Annette Nahid HYDROLOGICAL TECHNICAL OFFICER Work Phone: [facility] 09-12-2023 13:34-0500 Respiratory rate 18 /min Annette Nahid HYDROLOGICAL TECHNICAL OFFICER Work Phone: [facility] 09-12-2023 13:34-0500 SaO2% (BldA) [Mass fraction] 94 % Annette Nahid HYDROLOGICAL TECHNICAL OFFICER Work Phone: [facility] 09-12-2023 13:34-0500 Systolic blood pressure 138 mm[Hg] Annette Rosschrystal HYDROLOGICAL TECHNICAL OFFICER Work Phone: [facility] 10-06-2022 13:03-0500 Body height 172.7 cm Ailyn Baez DO Work Phone: [facility] 10-06-2022 13:03-0500 Body mass index (BMI) [Ratio] 29.44 kg/m2 Ailyn Baez DO Work Phone: [facility] 10-06-2022 13:03-0500 Body temperature 97.11 [degF] Ailyn Baez DO Work Phone: [facility] 10-06-2022 13:03-0500 Body weight 87.82 kg Ailyn Baez DO Work Phone: [facility] 10-06-2022 13:03-0500 Diastolic blood pressure 82 mm[Hg] Ailyn Baez DO Work Phone: [facility] 10-06-2022 13:03-0500 Heart rate 58 /min Ailyn Baez DO Work Phone: [facility] 10-06-2022 13:03-0500 Respiratory rate 16 /min Ailyn Baez DO Work Phone: [facility] 10-06-2022 13:03-0500 SaO2% (BldA) [Mass fraction] 94 % Ailyn Baez DO Work Phone: [facility] 10-06-2022 13:03-0500 Systolic blood pressure 161 mm[Hg] Ailyn Baez DO Work Phone: [facility] 08-27-2022 13:35-0500 Body height 180.34 cm Keira Haile Other Tutor Assignment Other 01-27-2023 13:35-0500 Body mass index (BMI) [Ratio] 27 kg/m2 Keira Haile Other Tutor [employer]ignment Other 08-27-2022 13:35-0500 Body temperature 97.9 [degF] Keira Haile Other Tutor Assignment Other 08-27-2022 13:35-0500 Body weight 87.82 kg Keira Haile Other Tutor Assignment Other 08-27-2022 13:35-0500 Diastolic blood pressure 77 mm[Hg] Keira Haile Other Tutor Assignment Other 08-27-2022 13:35-0500 Respiratory rate 18 /min Keira Haile Other Tutor Assignment Other 08-27-2022 13:35-0500 SaO2% (BldA) [Mass fraction] 97 % Keira Haile Other Tutor Assignment Other 08-27-2022 13:35-0500 Systolic blood pressure 156 mm[Hg] Keira Haile Other Tutor Assignment Other 12-08-2021 09:55-0400 Body height 172.72 cm Ailyn Baez Work Phone: [facility] 170 Work Phone: 12-08-2021 09:55-0400 Body mass index (BMI) [Ratio] 29.19 kg/m2 Ailyn Baez Work Phone: [facility] 170 Work Phone: 12-08-2021 09:55-0400 Body surface area Derived from formula 2.01 m2 Ailyn Baez Work Phone: [facility] [address] Work Phone: 12-08-2021 09:55-0400 Body temperature 97.3 [degF] Ailyn Kapadia Ayad Work Phone: [facility] [address] Work Phone: 12-08-2021 09:55-0400 Body weight 87.09 kg Ailyn Kapadia Ayad Work Phone: [facility] [address] Work Phone: 12-08-2021 09:55-0400 Diastolic blood pressure 69 mm[Hg] Ailyn Kapadia Ayad Work Phone: [facility] [address] Work Phone: 12-08-2021 09:55-0400 Heart rate 63 /min Ailyn J Ayad Work Phone: [facility] [address] Work Phone: 12-08-2021 09:55-0400 Respiratory rate 16 /min Ailyn J Ayad Work Phone: [facility] [address] Work Phone: 12-08-2021 09:55-0400 SaO2% (BldA) [Mass fraction] 93 % Ailyn J Ayad Work Phone: [facility] [address] Work Phone: 12-08-2021 09:55-0400 Systolic blood pressure 133 mm[Hg] Ailyn Kang Ayad Work Phone: [facility] [address] Work Phone: 10-14-2021 11:17-0400 Body height 172.72 cm Ailyn J Ayad Work Phone: [facility] [address] Work Phone: 10-14-2021 11:17-0400 Body mass index (BMI) [Ratio] 29.04 kg/m2 Ailyn Baez Work Phone: -[facility]ulmonary [facility] Work Phone: 10-14-2021 11:17-0400 Body surface area Derived from formula 2 m2 Ailyn Baez Work Phone: -[facility] Work Phone: 10-14-2021 11:17-0400 Body temperature 97.2 [degF] Ailyn Baez Work Phone: -[facility] Work Phone: 10-14-2021 11:17-0400 Body weight 86.64 kg Ailyn Baez Work Phone: -[facility] Work Phone: 10-14-2021 11:17-0400 Diastolic blood pressure 70 mm[Hg] Ailyn Baez Work Phone: -[facility] Work Phone: 10-14-2021 11:17-0400 Heart rate 73 /min Ailyn Baez Work Phone: -[facility] Work Phone: 10-14-2021 11:17-0400 Respiratory rate 16 /min Ailyn Baez Work Phone: -[facility] Work Phone: 10-14-2021 11:17-0400 SaO2% (BldA) [Mass fraction] 92 % Ailyn Baez Work Phone: -[facility] Work Phone: 10-14-2021 11:17-0400 Systolic blood pressure 120 mm[Hg] Ailyn Kapadia Ayad Work Phone: [facility] Work Phone: 10-07-2021 13:28-0500 Body height 172.72 cm Ailyn Kapadia Baez Work Phone: [facility] Work Phone: 10-07-2021 13:28-0500 Body mass index (BMI) [Ratio] 29.21 kg/m2 Ailyn Kapadia Baez Work Phone: [facility] Work Phone: 10-07-2021 13:28-0500 Body surface area Derived from formula 2.01 m2 Ailyn J Ayad Work Phone: [facility] Work Phone: 10-07-2021 13:28-0500 Body temperature 95.7 [degF] Ailyn Kapadia Ayad Work Phone: [facility] Work Phone: 10-07-2021 13:28-0500 Body weight 87.15 kg Ailyn Kapadia Ayad Work Phone: [facility] Work Phone: 10-07-2021 13:28-0500 Diastolic blood pressure 78 mm[Hg] Ailyn Baez Work Phone: [facility] Work Phone: 10-07-2021 13:28-0500 Heart rate 67 /min Ailyn Baez Work Phone: [facility] Work Phone: 10-07-2021 13:28-0500 Respiratory rate 16 /min Ailyn Baez Work Phone: [facility] Work Phone: 10-07-2021 13:28-0500 SaO2% (BldA) [Mass fraction] 94 % Ailyn Baez Work Phone: [facility] Work Phone: 10-07-2021 13:28-0500 Systolic blood pressure 138 mm[Hg] Ailyn Baez Work Phone: [facility] Work Phone: 09-09-2021 11:34-0500 Body height 172.72 cm Ailyn Baez Work Phone: [facility] Work Phone: 09-09-2021 11:34-0500 Body mass index (BMI) [Ratio] 30.71 kg/m2 Ailyn Baez Work Phone: [facility] Work Phone: 09-09-2021 11:34-0500 Body surface area Derived from formula 2.05 m2 Ailyn Baez Work Phone: [facility] Work Phone: 09-09-2021 11:34-0500 Body temperature 97.5 [degF] Ailyn Baez Work Phone: [facility] Work Phone: 09-09-2021 11:34-0500 Body weight 91.63 kg Ailyn Baez Work Phone: [facility] Work Phone: 09-09-2021 11:34-0500 Diastolic blood pressure 80 mm[Hg] Ailyn Baez Work Phone: [facility] Work Phone: 09-09-2021 11:34-0500 Heart rate 94 /min Ailyn Baez Work Phone: [facility] Work Phone: 09-09-2021 11:34-0500 Respiratory rate 16 /min Ailyn J Ayad Work Phone: [facility] Work Phone: 09-09-2021 11:34-0500 SaO2% (BldA) [Mass fraction] 90 % Ailyn J Ayad Work Phone: [facility] Work Phone: 09-09-2021 11:34-0500 Systolic blood pressure 130 mm[Hg] Ailyn Baez Work Phone: [facility] Work Phone: Encounters Encounter Date Encounter Type Care Provider Facility Start: 09-10-2024 End: 09-10-2024 Bamboo flowsheet Annette Whitfield HYDROLOGICAL TECHNICAL OFFICER Work Phone: [facility] Start: 09-10-2024 End: 09-10-2024 Bamboo [employer] Annette Whitfield HYDROLOGICAL TECHNICAL OFFICER Work Phone: [facility] Start: 09-10-2024 End: 09-10-2024 Office outpatient visit 25 minutes Annette Whitfield HYDROLOGICAL TECHNICAL OFFICER Work Phone: [facility] Comment on above: Primary hypertension (CMS/HCC) (Primary Dx); Chronic obstructive pulmonary disease, unspecified (CMS/HCC); Type 2 diabetes mellitus without complications (CMS/HCC); Obstructive sleep apnea, adult; 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); Edema of both lower extremities; BMI 25.0-25.9,adult; Mixed hyperlipidemia (CMS/HCC); Screening for prostate cancer; B12 deficiency Start: 09-10-2024 End: 09-10-2024 ambulatory ANNETTE WHITFIELD Not Available Start: 08-31-2024 End: 08-31-2024 Bamboo flowsheet Fabiola DAWSON Work Phone: [facility] Start: 08-31-2024 End: 08-31-2024 Bamboo flowsheet Fabiola Alas AUD Work Phone: [facility] Start: 08-31-2024 End: 08-31-2024 Patient encounter procedure Fabiola Alas AUD Work Phone: [facility] Comment on above: Sensorineural hearin g loss, bilateral (Primary Dx) Start: 08-31-2024 End: 08-31-2024 ambulatory FABIOLA ALAS Not Available Start: 06-14-2024 End: 06-14-2024 Bamboo flowsheet Annette Whitfield HYDROLOGICAL TECHNICAL OFFICER Work Phone: [facility] Start: 06-14-2024 End: 06-14-2024 Bamboo flowsheet Annette Whitfield HYDROLOGICAL TECHNICAL OFFICER Work Phone: [facility] Start: 06-14-2024 End: 06-14-2024 ambulatory ANNETTE NAHID Not Available Start: 06-14-2024 End: 06-14-2024 Patient encounter procedure Annette Whitfield HYDROLOGICAL TECHNICAL OFFICER Work Phone: [facility] Comment on above: Encounter for subseq uent annual wellness visit (AWV) in Medicare patient (Primary Dx); Obstructive sleep apnea, adult; Chronic obstructive pulmonary disease, unspecified COPD type ([facility]/HCC); 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); Primary hypertension (CMS/HCC); Benign prostatic hyperplasia with weak urinary stream; BMI 25.0-25.9,adult; Type 2 diabetes mellitus without complication, without long-term current use of insulin (CMS/HCC); Mixed hyperlipidemia (CMS/HCC); Edema of both lower extremities; Essential (primary) hypertension (CMS/HCC); Leg swelling; Pre-diabetes; Pleural effusion Start: 05-16-2024 End: 05-16-2024 ambulatory YUNG NICOLE Not Available Start: 05-16-2024 End: 05-16-2024 Patient encounter procedure Yung Nicole PROJECT ENG-HOIST OPERATOR Work Phone: [facility] Comment on above: Seborrheic keratosis of scalp; Inflamed seborrheic keratosis Start: 05-16-2024 End: 05-16-2024 Bamboo flowsheet Yung Nicole PROJECT ENG-HOIST OPERATOR Work Phone: [facility] Start: 05-16-2024 End: 05-16-2024 Bamboo flowsheet Yung Nicole PROJECT ENG-HOIST OPERATOR Work Phone: [facility] Start: 05-14-2024 End: 05-14-2024 Bamboo flowsheet Annette Chasez HYDROLOGICAL TECHNICAL OFFICER Work Phone: [facility] Start: 05-14-2024 End: 05-14-2024 Bamboo flowsheet Annette Chasez HYDROLOGICAL TECHNICAL OFFICER Work Phone: [facility] Start: 05-14-2024 End: 05-14-2024 Office outpatient visit 10 minutes Annette Whitfield HYDROLOGICAL TECHNICAL OFFICER Work Phone: [facility] Comment on above: Seborrheic keratosis of scalp (Primary Dx) Start: 05-14-2024 End: 05-14-2024 ambulatory ANNETTE WHITFIELD Not Available Start: 04-16-2024 End: 04-16-2024 ambulatory [facility] Start: 04-11-2024 End: 04-11-2024 Office outpatient new 45 minutes Soahn Eden DO Work Phone: [facility] [place] [address] Comment on above: Cognitive impairment (Primary Dx); Family history of dementia Start: 04-11-2024 End: 04-11-2024 ambulatory SOHAN EDEN Not Available Start: 04-11-2024 End: 04-11-2024 Bamboo flowsheet Christopher Meek DO Work Phone: [facility] [address] Start: 04-11-2024 End: 04-11-2024 Bamboo flowsheet Christopher Meek DO Work Phone: [facility] [place] [address] Start: 03-13-2024 End: 03-13-2024 ambulatory ANNETTE AICHHOLZ Not Available Start: 01-04-2024 End: 01-04-2024 ambulatory FABIOLA ALAS Not Available Start: 12-12-2023 End: 12-12-2023 ambulatory ANNETTE AICHHOLZ Not Available Start: 10-31-2023 End: 10-31-2023 ambulatory ANNALEE HERNÁNDEZ Not Available Start: 10-05-2023 End: 10-05-2023 ambulatory FABIOLA ALAS Not Available Start: 09-21-2023 End: 09-21-2023 ambulatory ANNALEE A EDGAR Not Available Start: 09-12-2023 Bamboo flowsheet Annette Aichholz HYDROLOGICAL TECHNICAL OFFICER Work Phone: [facility] Start: 09-12-2023 Bamboo flowsheet Annette Aichholz HYDROLOGICAL TECHNICAL OFFICER Work Phone: [facility] Start: 09-12-2023 End: 09-12-2023 Office outpatient visit 25 minutes Annette Aichholz HYDROLOGICAL TECHNICAL OFFICER Work Phone: [facility] Comment on above: Edema of both lower extremities (Primary Dx); Type 2 diabetes mellitus without complication, without long-term current use of insulin ([facility]); BMI 25.0-25.9,adult; Chronic obstructive pulmonary disease, unspecified COPD type (CMS/HCC); Primary hypertension (CMS/HCC); Obstructive sleep apnea, adult; Leg swelling; Essential (primary) hypertension (CMS/HCC); B12 deficiency; Benign prostatic hyperplasia with weak urinary stream; 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); Mixed hyperlipidemia ([facility]/HCC) Start: 09-12-2023 End: 09-12-2023 ambulatory ANNETTE AICHHOLZ Not Available Start: 09-05-2023 End: 09-05-2023 Clinical Support Annalee Hernández 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) Start: 04-26-2023 End: 04-28-2023 ambulatory EHAB [facility] Start: 02-07-2023 End: 02-07-2023 Emergency department patient visit Marilyn Alvarado Facility:[facility] Start: 10-06-2022 End: 10-06-2022 ambulatory AILYN BAEZ [facility] Start: 10-06-2022 End: 10-06-2022 Encounter for general adult medical examination without abnormal findings AILYN BAEZ [facility] Start: 10-06-2022 End: 10-06-2022 Patient encounter procedure Ailyn Kapadia Baez DO Work Phone: [facility] Comment on above: Primary hypertension (Primary Dx); Hypercholesteremia; Routine general medical examination at a health care facility; Chronic obstructive pulmonary disease, unspecified COPD type (CMS/HCC); Type 2 diabetes mellitus without complication, without long-term current use of insulin ([facility]); Leg swelling; Acute midline low back pain without sciatica; Benign prostatic hyperplasia with weak urinary stream; 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 Start: 10-06-2022 End: 10-06-2022 Patient encounter status Ailyn Kang Baez DO Work Phone: [facility] Work Phone: Start: 08-27-2022 Rx Renewal Ailyn Darling er Work Phone: [facility] Work Phone: Start: 08-27-2022 End: 08-27-2022 ambulatory Keira Haile Other [facility] [employer] Other Start: 08-27-2022 Office outpatient ne w 20 minutes Keira Haile [facility] [place] Start: 03-03-2022 AUDIT Ailyn Darling er Work Phone: [facility] Work Phone: Start: 12-08-2021 Office outpatient vi sit 25 minutes Ailyn Baez Work Phone: [facility] Work Phone: Start: 10-14-2021 Office consultation new/estab patient 60 min Ailyn Baez Work Phone: [facility] Work Phone: Start: 10-07-2021 Adv care pln tlkd & alt dcsn maker docd Ailyn Baez Work Phone: [facility] Work Phone: Start: 09-21-2021 ambulatory IP SURGERY TRA FOLRI CONSULT Facility:[facility] Start: 09-14-2021 AUDIT Ailyn Darling er Work Phone: [facility] Work Phone: Start: 09-09-2021 Office outpatient ne w 30 minutes Ailyn Baez Work Phone: [facility] Work Phone: Start: 08-27-2021 End: 08-27-2021 ambulatory UNKNOWN PROVIDER Facility:[facility] Start: 08-26-2021 [facility]ulatory [facility] Start: 08-25-2021 End: 08-28-2021 Evaluation and management of inpatient NA YANNKATLYN [facility] Start: 08-25-2021 ambulatory UNKNOWN PROVIDER Facili ty:[facility] Start: 08-22-2021 End: 08-22-[address] RADHA CHAPMAN Facility:[facility] Start: 08-18-2021 End: 08-19-[address] NARCISO GRAJEDA Facility:[facility] Start: 07-28-2021 End: 08-10-2021 Evaluation and management of inpatient URBANO VERMA Facility:[facility] Start: 06-09-2021 End: 06-10-2021 ambulatory ALEX SEAMAN Facility:[facility] Start: 03-18-2021 End: 03-19-2021 ambulatory ALEX SEAMAN Facility:[facility] Start: 09-30-2020 End: 10-01-[address] YANG LISTED REQUEST Facility:[facility] Start: 09-02-2020 End: 09-03-2020 ambulatory ALEX [place] Facility:[facility] Procedures Date Procedure Procedure Detail Performing Clinician Start: 09-10-2024 Hemoglobin glycosyla yuniel a1c Annette Whitfield NP Work Phone: Start: 05-16-2024 CRYOTHERAPY SKIN LESION Yung Nicole PROJECT ENG-HOIST OPERATOR Work Phone: Start: 08-05-2021 Insertion of [...] Treatment Date Care Activity Detail Author Start: 09-01-2025 Glaucoma screening Diabetes: Retinopathy Screening [facility] Start: 2025 End: 2025 Patient encounter procedure 2025 1:00 PM EST Office Visit [facility] [address] [place] [address] Annette Whitfield NP [address] [place] [address] [facility] Start: 06-14-2025 Medicare Annual Wellness (AWV) Medicare Annual Wellness (AWV) [facility] Start: 03-10-2025 Hemoglobin A1c measurement Diabetes: Hemoglobin A1C [facility] Start: 12-13-2024 Urine screening for protein Diabetes: Urine Protein Screening [facility] Start: 09-15-2024 Hemoglobin A1c measurement Diabetes: Hemoglobin A1C [facility] Start: 09-10-2024 End: 09-10-2025 CBC W Auto Differential panel - Blood CBC and differential Lab Routine Chronic obstructive pulmonary disease, unspecified (CMS/HCC) Obstructive sleep apnea, adult B12 deficiency Expected: 09/10/2024 (Approximate), Expires: 09/10/2025 [facility] Work Phone: Comment on above: Expected: 09/10/2024 (Approximate), Expi res: 09/10/2025 Start: 09-10-2024 End: 09-10-2025 Cobalamin (Vitamin B12) [Mass/volume] in Serum or Plasma Vitamin B12 Lab Routine B12 deficiency Expected: 09/10/2024 (Approximate), Expires: 09/10/2025 [facility] Comment on above: Expected: 09/10/2024 (Approximate), Expi res: 09/10/2025 Start: 09-10-2024 End: 09-10-2025 Comprehensive metabolic 2000 panel - Serum or Plasma Comprehensive metabolic panel Lab Routine Type 2 diabetes mellitus without complications (CMS/HCC) 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) Primary hypertension (CMS/HCC) Mixed hyperlipidemia (CMS/HCC) Expected: 09/10/2024 (Approximate), Expires: 09/10/2025 [facility] Comment on above: Expected: 09/10/2024 (Approximate), Expi res: 09/10/2025 Start: 09-10-2024 End: 09-10-2025 Lipid 1996 panel - Serum or Plasma Lipid panel Lab Routine Mixed hyperlipidemia (CMS/HCC) Expected: 09/10/2024 (Approximate), Expires: 09/10/2025 [facility] Comment on above: Expected: 09/10/2024 (Approximate), Expi res: 09/10/2025 Start: 09-10-2024 End: 09-10-2025 Microalbumin/Creatinine panel in random Urine Microalbumin / creatinine, urine ratio Lab Routine Type 2 diabetes mellitus without complications (CMS/HCC) Primary hypertension (CMS/HCC) Expected: 09/10/2024 (Approximate), Expires: 09/10/2025 [facility] Comment on above: Expected: 09/10/2024 (Approximate), Expi res: 09/10/2025 Start: 09-10-2024 End: 09-10-2025 Prostate specific Ag [Mass/volume] in Serum or Plasma PSA Lab Routine Screening for prostate cancer Expected: 09/10/2024 (Approximate), Expires: 09/10/2025 [facility] Comment on above: Expected: 09/10/2024 (Approximate), Expi res: 09/10/2025 Start: 09-10-2024 End: 09-10-2025 Urinalysis complete panel - Urine Urinalysis with reflex microscopic (clean catch) Lab Routine Type 2 diabetes mellitus without complications (CMS/HCC) Primary hypertension (CMS/HCC) Expected: 09/10/2024 (Approximate), Expires: 09/10/2025 [facility] Comment on above: Expected: 09/10/2024 (Approximate), Expi res: 09/10/2025 Start: 09-10-2024 End: 09-10-2024 Patient encounter procedure [facility] Comment on above: Obstructive sleep apnea, adult (Primary Dx); Chronic obstructive pulmonary disease, unspecified (CMS/HCC); Type 2 diabetes mellitus without complications (CMS/HCC); 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); Primary hypertension (CMS/HCC); Edema of both lower extremities; BMI 25.0-25.9,adult; Mixed hyperlipidemia (CMS/HCC); Screening for prostate cancer; B12 deficiency Start: 08-31-2024 End: 08-31-2024 Patient encounter procedure 08/31/2024 1:45 PM EST [facility] [address] [place] [address] Fabiola Alas, AUD [address] [place] [address] Arrived [facility] Comment on above: Arrived Start: 06-15-2024 Hemoglobin A1c measurement Diabetes: Hemoglobin A1C [facility] Start: 06-14-2024 End: 06-14-2025 XR Chest 2 Views XR chest 2 views Imaging Routine Pleural effusion Expected: 06/14/2024 (Approximate), Expires: 06/14/2025 [facility] Work Phone: Comment on above: Expected: 06/14/2024 (Approximate), Expi res: 06/14/2025 Start: 06-14-2024 End: 06-14-2024 Patient encounter procedure 06/14/2024 1:00 PM EST Office Visit [facility] [address] [place] [phone] Annette Whitfield, KELL [address] [place] [address] [facility] Start: 06-04-2024 End: 06-04-2024 Patient encounter procedure 06/04/2024 1:00 PM EST Office Visit [facility] [place] [address] [place] [address] Flavia Rees NP [address] [place] [address] [facility] [place] [address] [facility] Start: 05-14-2024 End: 05-14-2024 Patient encounter procedure 05/14/2024 2:00 PM EDT Office Visit [facility] [address] [place] [address] Annette Whitfield, KELL [address] [place] [phone] Arrived [facility] Comment on above: Arrived Start: 04-23-2024 End: 04-23-2024 Patient encounter procedure 04/23/2024 9:30 AM EDT Office Visit [facility] [address] [phone] Fantasma Branham, PhD [address] [place] [address] [facility] Start: 04-11-2024 End: 04-11-2024 Patient encounter procedure 04/11/2024 3:30 PM EDT Office Visit [facility] [place] [address] [place] [address] Sohan Eden, DO [address] [place], [place] [id number] [facility] Comment on above: Arrived Start: 04-01-2024 Influenza vaccination Influenza Vaccine (#1) [facility] Start: 12-12-2023 End: 12-12-2023 Patient encounter procedure 12/12/2023 1:00 PM EDT Office Visit [facility] [address] [place] [phone] Annette Whitfield, KELL [address] [place] [address] [facility] Start: 10-11-2023 End: 09-12-2024 Basic metabolic 1998 panel - Serum or Plasma Basic metabolic panel Lab Routine Edema of both lower extremities Expected: 10/11/2023 (Approximate), Expires: 09/12/2024 [facility] Work Phone: Comment on above: Expected: 10/11/2023 (Approximate), Expi res: 09/12/2024 Start: 10-07-2023 Medicare Annual Wellness (AWV) Medicare Annual Wellness (AWV) [facility] Start: 09-23-2023 Pneumococcal Vaccine: 65+ Years (2 - PPSV23 or PCV20) Pneumococcal Vaccine: 65+ Years (2 - PPSV23 or PCV20) [facility] Comment on above: Postponed from 2002 (Other Patient Reasons) Start: 09-21-2023 End: 09-21-2023 Clinical Support 09/21/2023 11:00 AM EST Clinical Support [facility] [address] [place] [phone] Annalee Hernández, [facility] [address] [place] [address] [facility] Start: 09-12-2023 End: 09-12-2023 Patient encounter procedure [facility] Comment on above: Type 2 diabetes mellitus without complic ation, without long-term current use of insulin ([facility]/HCC) Start: 10-06-2022 FUV, Provider: Ailyn Baez, Status: Pen, Time: 1:00 PM FUV, Provider: Ailyn Baez, Status: Long, Time: 1:00 PM [facility] Work Phone: Start: 10-06-2022 End: 10-07-2023 CBC W Auto Differential panel - Blood CBC and Auto Differential Lab Routine Primary hypertension Hypercholesteremia Chronic obstructive pulmonary disease, unspecified COPD type (CMS/HCC) Type 2 diabetes mellitus without complication, without long-term current use of insulin (CMS/HCC) Acute midline low back pain without sciatica 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 Expected: 10/06/2022 (Approximate), Expires: 10/07/2023 [facility] Work Phone: Comment on above: Expected: 10/06/2022 (Approximate), Expi res: 10/07/2023 Start: 10-06-2022 End: 10-07-2023 Comprehensive metabolic 2000 panel - Serum or Plasma Comprehensive Metabolic Panel Lab Routine Primary hypertension Hypercholesteremia Chronic obstructive pulmonary disease, unspecified COPD type (CMS/HCC) Type 2 diabetes mellitus without complication, without long-term current use of insulin (CMS/HCC) Leg swelling 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 Expected: 10/06/2022 (Approximate), Expires: 10/07/2023 [facility] Work Phone: Comment on above: Expected: 10/06/2022 (Approximate), Expi res: 10/07/2023 Start: 10-06-2022 End: 10-07-2023 Hemoglobin A1c/Hemoglobin.total in Blood Hemoglobin A1C Lab Routine Type 2 diabetes mellitus without complication, without long-term current use of insulin (CMS/HCC) Expected: 10/06/2022 (Approximate), Expires: 10/07/2023 [facility] Work Phone: Comment on above: Expected: 10/06/2022 (Approximate), Expi res: 10/07/2023 Start: 10-06-2022 End: 10-07-2023 Lipid 1996 panel - Serum or Plasma Lipid Panel Lab Routine Primary hypertension Hypercholesteremia Type 2 diabetes mellitus without complication, without long-term current use of insulin (CMS/HCC) 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 Expected: 10/06/2022 (Approximate), Expires: 10/07/2023 [facility] Work Phone: Comment on above: Expected: 10/06/2022 (Approximate), Expi res: 10/07/2023 Start: 10-06-2022 End: 10-07-2023 Magnesium [Mass/volume] in Serum or Plasma Magnesium Lab Routine Primary hypertension Chronic obstructive pulmonary disease, unspecified COPD type (CMS/HCC) Type 2 diabetes mellitus without complication, without long-term current use of insulin (CMS/HCC) Leg swelling 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 Expected: 10/06/2022 (Approximate), Expires: 10/07/2023 [facility] Work Phone: Comment on above: Expected: 10/06/2022 (Approximate), Expi res: 10/07/2023 Start: 10-06-2022 End: 10-07-2023 Microalbumin/Creatinine [Mass Ratio] in Urine Albumin , Urine Random Lab Routine Primary hypertension Type 2 diabetes mellitus without complication, without long-term current use of insulin (CMS/HCC) 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 Expected: 10/06/2022 (Approximate), Expires: 10/07/2023 [facility] Service Area Work Phone: Comment on above: Expected: 10/06/2022 (Approximate), Expi res: 10/07/2023 Start: 10-06-2022 End: 10-07-2023 TSH with reflex to Free T4 if abnormal TSH with reflex to Free T4 if abnormal Lab Routine Primary hypertension Hypercholesteremia Type 2 diabetes mellitus without complication, without long-term current use of insulin (CMS/HCC) 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 Expected: 10/06/2022 (Approximate), Expires: 10/07/2023 [facility] Work Phone: Comment on above: Expected: 10/06/2022 (Approximate), Expi res: 10/07/2023 Start: 04-07-2022 FUV, Provider: Ailyn Baez, Status: Pen, Time: 1:15 PM FUV, Provider: Ailyn Baez, Status: Pen, Time: 1:15 PM [facility] Work Phone: Start: 02-09-2022 FUV, Provider: Narendra Newton, Status: Pen, Time: 10:30 AM FUV, Provider: Narendra Newton, Status: Pen, Time: 10:30 AM [facility] Work Phone: Start: 11-05-2021 FUV, Provider: Narendra Newton, Status: Pen, Time: 3:30 PM FUV, Provider: Narendra Newton, Status: Pen, Time: 3:30 PM [facility] 170 Work Phone: Start: 10-14-2021 NPV, Provider: Narendra Newton, Status: Pen, Time: 11:00 AM NPV, Provider: Narendra Newton, Status: Pen, Time: 11:00 AM [facility] Work Phone: Start: 10-07-2021 FUV, Provider: Ailyn Baez, Status: Pen, Time: 1:15 PM FUV, Provider: Ailyn Baez, Status: Pen, Time: 1:15 PM [facility] Work Phone: Start: 2002 Pneumococcal Vaccine: 65+ Years (2 - PPSV23 or PCV20) Pneumococcal Vaccine: 65+ Years (2 - PPSV23 or PCV20) [facility] Start: 2002 Pneumococcal Vaccine: 65+ Years (2 of 2 - PPSV23 or PCV20) Pneumococcal Vaccine: 65+ Years (2 of 2 - PPSV23 or PCV20) [facility] Start: 04-03-1999 Pneumococcal Vaccine: 65+ Years (2 - PPSV23 if available, else PCV20) Pneumococcal Vaccine: 65+ Years (2 - PPSV23 if available, else PCV20) [facility] Start: 04-03-1999 Pneumococcal Vaccine: 65+ Years (2 of 2 - PPSV23 or PCV20) Pneumococcal Vaccine: 65+ Years (2 of 2 - PPSV23 or PCV20) [facility] Start: 1987 Zoster Vaccines (1 of 2) Zoster Vaccines (1 of 2) [facility] Start: 1956 Urine screening for protein Diabetes: Urine Protein Screening [facility] Start: 1947 Diabetic foot examination Diabetes: Foot Exam [facility] Start: 1947 Glaucoma screening Diabetes: Retinopathy Screening [facility] Start: 1947 Ophthalmic examination and evaluation Diabetes: Retinopathy Screening [facility] Start: 1944 DTaP/Tdap/Td Vaccines (1 - Tdap) DTaP/Tdap/Td Vaccines (1 - Tdap) [facility] Start: 1937 Hemoglobin A1c measurement Diabetes: Hemoglobin A1C [facility] Start: 1937 Lipid panel Lipid Panel [facility] Start: 1937 Medicare Annual Wellness Visit Medicare Annual Wellness Visit (AWV) [facility] Immunizations Immunization Date Immunization Notes Care Provider Keily ga 05-19-2024 Seasonal, trivalent, recombinant, injectable influenza vaccine, preservative free Annette Whitfield HYDROLOGICAL TECHNICAL OFFICER Work Phone: [facility] 05-25-2023 Seasonal, quadrivalent, recombinant, injectable influenza vaccine, preservative free [facility] Work Phone: [facility] 05-25-2023 influenza virus vaccine, unspecified formulation Sohan Eden DO Work Phone: [facility] 05-13-2023 SARS-COV-2 (COVID-19 ) vaccine, mRNA, spike protein, LNP, PF, 50 mcg/0.[address] [facility] Work Phone: [facility] 04-25-2022 influenza, injectabl e, quadrivalent, preservative free Ailyn Baez DO Work Phone: [facility] Work Phone: 12-03-2021 Moderna COVID-19 Vaccine 100 MCG/0.5ML Intramuscular Suspension Ailyn Baez Work Phone: [facility] 06-23-2021 influenza virus vaccine, unspecified formulation Ailyn Baez Work Phone: [facility] Work Phone: Comment on above: Series: 06-23-2021 Influenza, injectabl e, Madin Elaina Canine Kidney, preservative free, quadrivalent Ailyn Baez DO Work Phone: [facility] Work Phone: 06-09-2021 Moderna COVID-19 Vaccine 100 MCG/0.5ML Intramuscular Suspension Ailyn Baez Work Phone: [facility] Comment on above: Series: 09-30-2020 Moderna COVID-19 Vaccine 100 MCG/0.5ML Intramuscular Suspension Ailyn Baez Work Phone: [facility] Work Phone: Comment on above: Series: 09-02-2020 Moderna COVID-19 Vaccine 100 MCG/0.5ML Intramuscular Suspension Ailyn Baez Work Phone: [facility] Comment on above: Series: 05-07-2020 Influenza, injectabl e, Madin Elaina Canine Kidney, preservative free, quadrivalent Ailyn Baez Work Phone: [facility] Work Phone: 02-06-1999 pneumococcal conjuga te vaccine, 13 valent Ailyn Baez Work Phone: [facility] Work Phone: Comment on above: Series: Payers Date Payer Category Payer [facility] Sub[facility] Plan / Payer (Effective 2016-Present) Name: Fidel Palomino Relation to Subscriber: Self Name: Fidel Palomino Payer ID: Not on file Group ID: [id number] Type: Not on file Address: [place] [id number] 2016 Unknown 2002 Medicare [id number] 1959 Medicare [id number] 1959 Self-pay 1959 Unknown [id number] 1937 Unknown [id number] 2.16.840.1.744794.3.579.2 .593 1937 Unknown [id number] 2.16.840.1.732644.3.579.2 .593 1937 Unknown [id number] 2.16.840.1.846881.3.579.2 .593 1937 Unknown [id number] 2.16.840.1.278355.3.579.2 .593 1937 Unknown [id number] 2.16.840.1.671469.3.579.2 .732 1937 Unknown [id number] 2.16.840.1.448456.3.579.2 .732 1937 Unknown [id number] 2.16.840.1.391779.3.579.2 .732 1937 Unknown [id number] 2.16.840.1.429906.3.579.2 .732 1937 Unknown [id number] 2.16.840.1.547756.3.579.2 .732 1937 Unknown [id number] 2.16.840.1.655829.3.579.2 .732 1937 Unknown [id number] 2.16.840.1.104974.3.579.2 .732 1937 Unknown [id number] 2.16.840.1.051410.3.579.2 .732 1937 Unknown [id number] 2.16.840.1.455407.3.579.2 .73 1937 Unknown [id number] 2.16.840.1.278125.3.579.2 .732 1937 Unknown [id number] 2.16.840.1.052330.3.579.2 .1244 1937 Unknown [id number] 2.16840.1.414035.3.579.2 .1259 1937 Unknown [id number] 2.16.840.1.300986.3.579.2 .1259 1937 Unknown [id number] 2.16.840.1.120555.3.579.2 .1259 1937 Unknown [id number] 2.16.840.1.099105.3.579.2 .1259 1937 Unknown [id number] 2.16840.1.902226.3.579.2 .1259 1937 Unknown [id number] 2.16.840.1.976987.3.579.2 .1259 1937 Unknown [id number] 2.16.840.1.603577.3.579.2 .1259 1937 Unknown [id number] 2.16.840.1.968491.3.579.2 .1259 1937 Unknown [id number] 2.16.840.1.214512.3.579.2 .1259 1937 Unknown [id number] 2.16.840.1.790899.3.579.2 .1259 1937 Unknown [id number] 2.16.840.1.295251.3.579.2 .1259 1937 Unknown [id number] 2.16.840.1.078739.3.579.2 .1259 1937 Unknown [id number] 2.16.840.1.051307.3.579.2 .1259 Unknown [id number] 2.16.840.1.139087.3.579.2 .593 Unknown [id number] 2.16.840.1.273107.3.579.2 .593 Unknown [id number] 2.16.840.1.085453.3.579.2 .593 Unknown [id number] 2.16.840.1.996589.3.579.2 .531 Social History Date Type Detail Facility Start: 08-09-2023 End: 06-14-2024 Former smoker Former smoker [facility] Work Phone: Start: 08-09-2023 End: 06-14-2024 Sex Assigned At [facility] [employer] Other Start: 04-27-2023 Tobacco smoking status MTIS Ex-smoker [facility] History of tobacco use Current smoker [facility] History of tobacco use Cigarette Smoker [facility] Start: 04-27-2023 Tobacco use and exposure Smokeless tobacco non-user [facility] Start: 08-22-2023 End: 09-10-2024 Alcohol intake Lifetime non-drinker (finding) [facility] Start: 04-22-2023 Alcohol Comment caffeine intak e: more than 4 cups per day. [facility] Start: 1937 Sex Assigned At Not on file [facility] Work Phone: Start: 10-06-2022 Tobacco smoking status NHIS Never smoked tobacco [facility] Work Phone: Start: 10-06-2022 Tobacco use and exposure Former smokeless tobacco user [facility] Work Phone: Start: 10-06-2022 Alcohol intake Ex-drinker (finding) [facility] Work Phone: Start: 09-26-2022 End: 10-06-2022 Exposure to SARS-CoV-2 (event) Not sure [facility] Clinical Notes 07-28-2021 to 09-10-2024 Annette Whitfield, HYDROLOGICAL TECHNICAL OFFICER - 09/10/2024 1:20 PM ESTLisa Aichholz, HYDROLOGICAL TECHNICAL OFFICER - 09/10/2024 6:54 AM ESTLisa Aichholz, HYDROLOGICAL TECHNICAL OFFICER - 09/10/2024 6:54 AM ESTLisa Aichholz, HYDROLOGICAL TECHNICAL OFFICER - 09/10/2024 6:53 AM ESTPatient Instructions Note Date & Type Note Facility 09-10-2024 History of Present illness Narrative Images from the original note were not included. Fidel Palomino is a 89 y.o. male presents with chief complaint of No chief complaint on file. HPI: Pre diabetes: no freq thirst/urination/not current meds. Not currently on meds for this, will check A1c Hypertension This is a chronic problem. The current episode started more than 1 year ago. The problem is unchanged. The problem is controlled. Associated symptoms include malaise/fatigue and peripheral edema. Pertinent negatives include no blurred vision, chest pain or shortness of breath. There are no associated agents to hypertension. Risk factors for coronary artery disease include male gender, sedentary lifestyle and diabetes mellitus. Past treatments include beta blockers and diuretics. The current treatment provides significant improvement. There are no compliance problems. Edema Presents with chronic edema. The current episode started more than 1 year ago. The onset of the episode was gradual. The problem presents itself daily. The problem has been waxing and waning. The edema is present on the both side(s). Risk factors for edema include no known risk factors. Associated agents include no associated agents. Pertinent negative symptoms include no chest pain, no cough, no decreased urine volume, no fatigue, no orthopnea and no weight change. Treatments tried include diuretics. There has been moderate improvement on treatment(s). SUBJECTIVE: MEDICATIONS: Current Outpatient Medications Medication Instructions aspirin 81 mg, Oral, Daily atorvastatin (LIPITOR) 40 mg, Oral, Nightly carvedilol (COREG) 25 mg, Oral, 2 times daily with meals finasteride (PROSCAR) 5 mg, Daily furosemide (LASIX) 20 mg, Oral, Every other day hydroCHLOROthiazide (HYDRODIURIL) 25 mg, Oral, Every morning loratadine (CLARITIN) 10 mg, Daily oxygen (O2) 2 L/min, Continuous potassium chloride CR (Klor-Con M10) 10 MEQ ER tablet 10 mEq, Oral, Daily PRN, Do not crush or chew. ALLERGIES: No Known Allergies REVIEW OF SYMPTOMS: Review of Systems Constitutional: Positive for malaise/fatigue. Negative for activity change, appetite change, fatigue and unexpected weight change. HENT: Positive for sneezing. Negative for ear pain, nosebleeds, trouble swallowing and voice change. Eyes: Negative for blurred vision, pain, discharge and visual disturbance. Respiratory: Negative for apnea, cough, chest tightness, shortness of breath and wheezing. Cardiovascular: Positive for leg swelling. Negative for chest pain. Gastrointestinal: Negative for abdominal distention, blood in stool, constipation and diarrhea. Genitourinary: Negative for decreased urine volume, difficulty urinating, dysuria and hematuria. Skin: Negative for color change. Neurological: Negative for dizziness, tremors and seizures. [...] Date CATARACT EXTRACTION, BILATERAL Bilateral HERNIA REPAIR CA LAP,APPENDECTOMY 07/28/2021 US GUIDED PERCUTANEOUS PERITONEAL OR RETROPERITONEAL FLUID COLLECTION DRAINAGE 08/25/2021 US GUIDED PERCUTANEOUS PERITONEAL OR RETROPERITONEAL FLUID COLLECTION DRAINAGE 08/25/2021 family history includes Cancer in his father; Dementia in his brother; Diabetes in his sibling; Heart disease in his mother. OBJECTIVE: Visit Vitals BP 122/72 (BP Location: Left arm, Patient Position: Sitting, BP Cuff Size: Large adult) Pulse 56 Temp 98.3 F (Temporal) Resp 18 Wt 187 lb 9.6 oz SpO2 96% BMI 25.80 kg/m Smoking Status Former BSA 2.07 m Physical Exam Vitals and nursing note reviewed. Constitutional: Appearance: Normal appearance. He is not ill-appearing or diaphoretic. HENT: Head: Normocephalic. Right Ear: External ear normal. Left Ear: External ear normal. Nose: Nose normal. Mouth/Throat: Mouth: Mucous membranes are moist. Pharynx: Oropharynx is clear. Eyes: Extraocular Movements: Extraocular movements intact. Conjunctiva/sclera: Conjunctivae normal. Neck: Vascular: No carotid bruit. Cardiovascular: Rate and Rhythm: Normal rate and regular rhythm. Pulses: Normal pulses. Heart sounds: Normal heart sounds. Pulmonary: Effort: Pulmonary effort is normal. Breath sounds: Rales (bibasilar rales, faint) present. Abdominal: General: Bowel sounds are normal. Palpations: Abdomen is soft. Musculoskeletal: Cervical back: Neck supple. Right lower leg: Edema (1+ pedal) present. Left lower leg: Edema (trace-1+ pedal) present. Lymphadenopathy: Cervical: No cervical adenopathy. Skin: General: Skin is warm and dry. Capillary Refill: Capillary refill takes 2 to 3 seconds. Neurological: General: No focal deficit present. Mental Status: He is alert. Psychiatric: Mood and Affect: Mood normal. Behavior: Behavior normal. Thought Content: Thought content normal. Judgment: Judgment normal. ASSESSMENT AND PLAN: Follow up in about 3 months (around 12/08/2024) for Recheck. Problem List Items Addressed This Visit B12 deficiency Relevant Orders CBC and differential Vitamin B12 HTN (hypertension) (CMS/HCC) - Primary Please check blood pressure daily and record DASH diet Limit caffeine Take medication as directed Contact office if chest pain, pressure, dizziness, shortness of breath, swelling legs Recommend slow position changes Current meds: carvedilol, hydrochlorothiazide Relevant Orders Comprehensive metabolic panel Urinalysis with reflex microscopic (clean catch) Microalbumin / creatinine, urine ratio Chronic obstructive pulmonary disease, unspecified (CMS/HCC) Continue with oxygen for HS use Does not use any inhalers Relevant Orders CBC and differential 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 It is recommended that you wear your PAP device any time while in bed sleeping. Not using the PAP device can increase your risk of elevated/uncontrolled high blood pressure, atrial fibrillation, heart attack, stroke, or sudden . Compliance with PAP: no Cannot tolerate wearing PAP Does use oxygen therapy at night Relevant Orders CBC and differential Type 2 diabetes mellitus without complications ([facility]) Check blood sugars daily, notify if <70 or >200. Take medications (pills or insulin) as directed. Monitor for s/s of hypoglycemia (sweaty, dizziness, nausea, vomiting, or shakiness). Watch for increase in thirst, urination, or appetite. Inspect feet frequently monitoring for open wounds , and also recommend yearly eye exam. Pt should attempt to remain as physically active as chronic conditions allow, as well as trying to follow a diet low in carbohydrates, and simple sugars. Current meds: asa, statin Check A1c test: 6.2% 09/10/24 Relevant Orders POCT glycosylated hemoglobin (Hb A1C) docked device (Completed) Comprehensive metabolic panel Urinalysis with reflex microscopic (clean catch) Microalbumin / creatinine, urine ratio BMI 25.0-25.9,adult Edema of both lower extremities Elevated legs as much as tolerated Compression stockings if tolerates Limit sodium Lasix and potassium takes every other day Check labs yearly and prn Screening for prostate cancer Relevant Orders PSA Associated Problem(s): Hyperlipidemia ([facility]) On statin therapy Check labs yearly and prn dose changes Associated Problem(s): Type 2 diabetes mellitus without complications ([facility]) Check blood sugars daily, notify if <70 or >200. Take medications (pills or insulin) as directed. Monitor for s/s of hypoglycemia (sweaty, dizziness, nausea, vomiting, or shakiness). Watch for increase in thirst, urination, or appetite. Inspect feet frequently monitoring for open wounds , and also recommend yearly eye exam. Pt should attempt to remain as physically active as chronic conditions allow, as well as trying to follow a diet low in carbohydrates, and simple sugars. Current meds: asa, statin Check A1c test: 6.2% 09/10/24 Associated Problem(s): Edema of both lower extremities Elevated legs as much as tolerated Compression stockings if tolerates Limit sodium Lasix and potassium takes every other day Check labs yearly and prn Associated Problem(s): HTN (hypertension) ([facility]) Please check blood pressure daily and record DASH diet Limit caffeine Take medication as directed Contact office if chest pain, pressure, dizziness, shortness of breath, swelling legs Recommend slow position changes Current meds: carvedilol, hydrochlorothiazide Associated Problem(s): 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 ([facility]) Continue with asa, statin, b marco and blood pressure control Continue with cardiology as directed Associated Problem(s): Chronic obstructive pulmonary disease, unspecified (CMS/[facility]) Continue with oxygen for HS use Does not use any inhalers Associated Problem(s): Obstructive sleep apnea, adult (Resolved 09/10/2024) You have a diagnosis of obstructive sleep apnea. It is recommended that you wear your PAP device any time while in bed sleeping. Not using the PAP device can increase your risk of elevated/uncontrolled high blood pressure, atrial fibrillation, heart attack, stroke, or sudden . Compliance with PAP: no Cannot tolerate wearing PAP Does use oxygen therapy at night documented in this encounter [facility] 09-10-2024 Instructions Annette Whitfield NP - 09/10/2024 1:20 PM EST Get fasting labs Doing well otherwise documented in this encounter [facility] 06-14-2024 History of Present illness Narrative Associated Problem(s): Pleural effusion Will check CXR No acute symptoms Wears oxygen Associated Problem(s): Edema of both lower extremities Continue lasix and potassium QOD Associated Problem(s): Obstructive sleep apnea, adult Did not tolerated wearing PAP Does wear oxygen at night Associated Problem(s): Pre-diabetes Monitor for s/s of hypoglycemia (sweaty, dizziness, nausea, vomiting, or shakiness). Watch for increase in thirst, urination, or appetite. Inspect feet frequently monitoring for open wounds , and also recommend yearly eye exam. Pt should attempt to remain as physically active as chronic conditions allow, as well as trying to follow a diet low in carbohydrates, and simple sugars. Fidel Palomino is a 88 y.o. male presents with chief complaint of No chief complaint on file. HPI: Diet: balanced Activity: walking the neighbor's dog Mental Health Concerns: none Falls in the last year: none Still driving: yes Do you pay your bills: does , but he could if needed Any hearing problems: hearing aids bilat Any Vision problems: glasses Any Hospitalizations in the last year: none Specialist: Paraeducator: [facility], Eye doctor: [facility]/Living Will: yes Concerns: none SUBJECTIVE: MEDICATIONS: Current Outpatient Medications Medication Instructions aspirin 81 mg, Oral, Daily atorvastatin (LIPITOR) 40 mg, Oral, Nightly carvedilol (COREG) 25 mg, Oral, 2 times daily with meals finasteride (PROSCAR) 5 mg, Daily furosemide (LASIX) [...] Systems Constitutional: Negative for activity change, appetite change, chills, fatigue, fever and unexpected weight change. HENT: Negative for congestion, ear pain, nosebleeds, rhinorrhea, sinus pressure, sneezing, sore throat, trouble swallowing and voice change. Eyes: Negative for pain, discharge and visual disturbance. Respiratory: Negative for apnea, cough, chest tightness, shortness of breath and wheezing. Cardiovascular: Positive for leg swelling. Negative for chest pain and palpitations. Gastrointestinal: Negative for abdominal distention, abdominal pain, blood in stool, constipation, diarrhea, nausea and vomiting. Genitourinary: Negative for decreased urine volume, difficulty urinating, dysuria, flank pain and hematuria. Musculoskeletal: Negative for arthralgias, back pain, joint swelling and myalgias. Skin: Negative for color change, rash and wound. Neurological: Negative for dizziness, tremors, seizures, weakness, numbness and headaches. Psychiatric/Behavioral: Negative for agitation, decreased concentration, hallucinations, self-injury, sleep disturbance and suicidal ideas. The patient is not nervous/anxious. Hematological: Negative for adenopathy. Does not bruise/bleed easily. Endocrine: Negative for cold intolerance, heat intolerance, polydipsia, polyphagia and polyuria. Allergic/Immunologic: Negative for environmental allergies and food allergies. PAST MEDICAL HISTORY Past Medical History: Diagnosis Date Appendicitis 2020 Hearing decreased, bilateral HTN (hypertension) (CMS/HCC) Hyperlipidemia (CMS/HCC) Pre-diabetes 09/12/2023 Primary hypertension (CMS/HCC) 08/28/2021 Sensorineural hearing loss (SNHL) of right ear with restricted hearing of left ear Vertigo Past Surgical History: Procedure Laterality Date CATARACT EXTRACTION, BILATERAL Bilateral HERNIA REPAIR CA LAP,APPENDECTOMY 07/28/2021 US GUIDED PERCUTANEOUS PERITONEAL OR RETROPERITONEAL FLUID COLLECTION DRAINAGE 08/25/2021 US GUIDED PERCUTANEOUS PERITONEAL OR RETROPERITONEAL FLUID COLLECTION DRAINAGE 08/25/2021 family history includes Cancer in his father; Dementia in his brother; Diabetes in his sibling; Heart disease in his mother. OBJECTIVE: Visit Vitals BP 118/82 (BP Location: Left arm, Patient Position: Sitting, BP Cuff Size: Adult long) Pulse 59 Temp 98.7 F (Temporal) Resp 18 Ht 5' 11.5 Wt 184 lb SpO2 97% BMI 25.31 kg/m Smoking Status Former BSA 2.05 m Physical Exam Vitals and nursing note [...] is soft. Musculoskeletal: Cervical back: Neck supple. Skin: General: Skin is warm and dry. Capillary Refill: Capillary refill takes 2 to 3 seconds. Neurological: General: No focal deficit present. Mental Status: He is alert. Psychiatric: Mood and Affect: Mood normal. Behavior: Behavior normal. Thought Content: Thought content normal. Judgment: Judgment normal. ASSESSMENT AND PLAN: No follow-ups on file. Problem List Items Addressed This Visit HTN (hypertension) ([facility]) Please check blood pressure daily and record DASH diet Limit caffeine Take medication as directed Contact office if chest pain, pressure, dizziness, shortness of breath, swelling legs Recommend slow position changes Relevant Medications carvedilol (Coreg) 25 MG tablet hydroCHLOROthiazide (HYDRODiuril) 25 MG tablet Benign prostatic hyperplasia with weak urinary stream Continue with proscar COPD (chronic obstructive pulmonary disease) ([facility]) Continue with oxygen for HS use 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 ([facility]) Continue with asa, statin, b marco and blood pressure control Continue with cardiology as directed Relevant Medications aspirin 81 MG EC tablet carvedilol (Coreg) 25 MG tablet Hyperlipidemia ([facility]) Continue statin Relevant Medications atorvastatin (Lipitor) 40 MG tablet Obstructive sleep apnea, adult Did not tolerated wearing PAP Does wear oxygen at night Pleural effusion Will check CXR No acute symptoms Wears oxygen Relevant Orders XR chest 2 views RESOLVED: Type 2 diabetes mellitus without complication, without long-term current use of insulin ([facility]) Check blood sugars daily, notify if <70 or >200. Take medications (pills or insulin) as directed. Monitor for s/s of hypoglycemia (sweaty, dizziness, nausea, vomiting, or shakiness). Watch for increase in thirst, urination, or appetite. Inspect feet frequently monitoring for open wounds , and also recommend yearly eye exam. Pt should attempt to remain as physically active as chronic conditions allow, as well as trying to follow a diet low in carbohydrates, and simple sugars. Check A1c test BMI 25.0-25.9,adult Edema of both lower extremities Continue lasix and potassium QOD Relevant Medications furosemide (Lasix) 20 MG tablet hydroCHLOROthiazide (HYDRODiuril) 25 MG tablet Encounter for subsequent annual wellness visit (AWV) in Medicare patient - Primary I have reviewed Ht/Wt/BMI, I have reviewed recommended vaccines for patient's age, as well as all recommended screenings I have reviewed available care everywhere notes as well. I have recommended eating a balanced diet, as well as activity as chronic conditions allow It is recommended that the patient have a yearly eye exam, as well as twice a year dental exams Fu in this office for wellness on a yearly basis Pre-diabetes Monitor for s/s of hypoglycemia (sweaty, dizziness, nausea, vomiting, or shakiness). Watch for increase in thirst, urination, or appetite. Inspect feet frequently monitoring for open wounds , and also recommend yearly eye exam. Pt should attempt to remain as physically active as chronic conditions allow, as well as trying to follow a diet low in carbohydrates, and simple sugars. Other Visit Diagnoses Essential (primary) hypertension (CMS/HCC) Relevant Medications hydroCHLOROthiazide (HYDRODiuril) 25 MG tablet Leg swelling Relevant Medications potassium chloride CR (Klor-Con M10) 10 MEQ ER tablet Associated Problem(s): Encounter for subsequent annual wellness visit (AWV) in Medicare patient I have reviewed Ht/Wt/BMI, I have reviewed recommended vaccines for patient's age, as well as all recommended screenings I have reviewed available care everywhere notes as well. I have recommended eating a balanced diet, as well as activity as chronic conditions allow It is recommended that the patient have a yearly eye exam, as well as twice a year dental exams Fu in this office for wellness on a yearly basis Associated Problem(s): Hyperlipidemia (CMS/HCC) Continue statin Associated Problem(s): Type 2 diabetes mellitus without complication, without long-term current use of insulin (CMS/HCC) (Resolved 06/14/2024) Check blood sugars daily, notify if <70 or >200. Take medications (pills or insulin) as directed. Monitor for s/s of hypoglycemia (sweaty, dizziness, nausea, vomiting, or shakiness). Watch for increase in thirst, urination, or appetite. Inspect feet frequently monitoring for open wounds , and also recommend yearly eye exam. Pt should attempt to remain as physically active as chronic conditions allow, as well as trying to follow a diet low in carbohydrates, and simple sugars. 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 ([facility]) Continue with asa, statin, b marco and blood pressure control Continue with cardiology as directed Associated Problem(s): COPD (chronic obstructive pulmonary disease) ([facility]) Continue with oxygen for HS use documented in this encounter [facility] 06-14-2024 Instructions Annette Whitfield NP - 06/14/2024 1:00 PM EST No changes in meds Follow up appt in 3 months documented in this encounter [facility] 05-16-2024 History of Present illness Narrative Lesions: [...] limited to risks of scarring, darker or director of engineering pigmentary changes, recurrence, incomplete removal and infection. [...] any new/changing lesions documented in this encounter [facility] 05-14-2024 History of Present illness Narrative Associated [...] Negative for color change. Skin lesion left restoration area Neurological: Negative for dizziness, tremors and [...] Date CATARACT EXTRACTION, BILATERAL Bilateral HERNIA REPAIR CA LAP,APPENDECTOMY 07/28/2021 US GUIDED PERCUTANEOUS PERITONEAL OR [...] 2 to 3 seconds. Findings: Lesion (left restoration, warty, c/w seborrhic keratosis, measures [id number]) present. Neurological: General: No focal deficit present. [...] referral to Dermatology documented in this encounter [facility] 04-16-2024 Note Lipid abnormalities are well controlled and liver function normal Continue lipitor 40 mg [facility] 04-16-2024 Note Coronary artery dise ase is stable without any concerning symptoms Continue GDMT- ASA, lipitor, coreg Lipid levels are well controlled and d/w pt to call office or 911 for any concerning symptoms- chest pain, SOB, increased fatigue continue risk factor modifications- heart healthy diet, regular exercise as tolerated and continue all medications. [facility] 04-16-2024 Note Hypertension is well controlled Continue coreg and hydrochlorothiazide Renal function is normal [facility] 04-16-2024 Note [facility] CARDIOLOGY PROGR ESS NOTE [...] CREATININE 0.88 -- 0.91 0.91 TBH EGFR-AF CHINESE >60 -- >60 >60 TBH EGFR-NON AF CHINESE >60 -- >60 >60 BUN CREATININE RATIO [...] Calcium 8.5 - (more content not included)... [facility] 04-16-2024 Note Pt is here for a one year follow up. Pt denies sob, chest pain, palpatations. Review of Systems Cardiovascular: Positive for leg swelling (ankles). [facility] 04-16-2024 Note Diabetes is stable, A1C well controlled F/U with PCP [facility] 04-11-2024 History of Present illness Narrative Images from the original note were not included. Chief complaint: Memory impairment Subjective Fidel Palomino, 88 y.o., male Patient is here for a neurologic consult at the request of Annette Whitfield NP for memory impairment, family Hx of Alzheimer's. Patient is here with his . Patient states he does a lot of wood working and he is misplacing things with this. Patient still drives. Him and his both agree he has a wonder memory as far as driving goes. His states he forgets to turn off lights or shut closet doors. He admits to difficulty remembering what he is talking about mid conversation. He reports sleeping about 8-9 hours of sleep at night. He sleeps with oxygen at night. Patient denies having vivid dream. His states he may be a bit more agitated now then ever but it is still not bad at all. His states he does have some balance issues although he disagrees. Review of Systems Constitutional: Negative for appetite change, fatigue and fever. Respiratory: Negative for cough, shortness of breath and wheezing. Cardiovascular: Negative for chest pain, palpitations and leg swelling. Gastrointestinal: Negative for abdominal pain, constipation, diarrhea and nausea. Musculoskeletal: Negative for arthralgias, gait problem and myalgias. Neurological: Negative for dizziness, tremors, numbness and headaches. Memory impairment Past Medical History: Diagnosis Date Appendicitis 2020 Hearing decreased, bilateral HTN (hypertension) (CMS/HCC) Hyperlipidemia (CMS/HCC) Pre-diabetes 09/12/2023 Primary hypertension (CMS/HCC) 08/28/2021 Sensorineural hearing loss (SNHL) of right ear with restricted hearing of left ear Vertigo Past Surgical History: Procedure Laterality Date CATARACT EXTRACTION, BILATERAL Bilateral HERNIA REPAIR CA LAP,APPENDECTOMY 07/28/2021 US GUIDED PERCUTANEOUS PERITONEAL OR RETROPERITONEAL FLUID COLLECTION DRAINAGE 08/25/2021 US GUIDED PERCUTANEOUS PERITONEAL OR RETROPERITONEAL FLUID COLLECTION DRAINAGE 08/25/2021 Family History Problem Relation Name Age of Onset Heart disease Mother Cancer Father Dementia Brother Diabetes Sibling Social History Tobacco Use Smoking status: Former Types: Cigarettes Smokeless tobacco: Never Substance Use Topics Alcohol use: Never Comment: caffeine intake: more than 4 cups per day. Allergies: Patient has no known allergies. Vitals: 04/11/24 1526 BP: 136/79 Pulse: 78 SpO2: 98% Body mass index is 25.86 kg/m . weight: 185 lb 6.4 oz Neurologic exam: Mental status: Awake, alert to person, place and time. 0/3 for 3 object recall. Impaired Luria 3 step. Language is fluent without aphasia. Attention and concentration are normal. Fund of knowledge is appropriate for level of education. Cranial nerves: CN II: Visual acuity is normal. Visual workman full to confrontation. CN III, IV, : pupils equal round and reactive to light. Extraocular movements intact. No ptosis present. CN V: Facial sensation is normal. CN VII: Full and symmetric facial movement. CN VIII: Hearing is normal to finger rub bilaterally: CN IX and X: Palate elevates symmetrically. CN XI: Shoulder shrug is normal bilaterally. CN XII: Tongue is midline without atrophy or fasciculation. Motor: Strength is 5/5 throughout. Bulk is normal. Sensory: Sensation is intact to light touch throughout Four extremities. Reflexes: Deep tendon reflexes are 0 and symmetric throughout. Coordination: [id number] testing and rapid alternating movements are normal Gait: Normal Review and summary of old records: MRI of the brain with and without contrast internal auditory canal protocol on 05/09/2023: Fluid signal intensity within the left mastoid air cells. Otherwise unremarkable IAC. Unremarkable intracranial views. Vitamin B12 on 12/14/2023:elevated at 1990 TSH with reflex on 09/29/2022: Normal Assessment/Plan Diagnoses and all orders for this visit: Cognitive impairment Family history of dementia It is my impression that the patient has cognitive impairment and memory loss. He had 0/3 for 3 object recall and impaired Luria 3 step. His younger brother recently of dementia. He seems to be mildly affected. MRI did not identify any acute intracranial pathology and this was done with internal auditory canal protocol in May 2023. B12 and thyroid stimulating hormone were normal. Patient is not interested in medication at this time but is open to more detailed cognitive assessment. Plan: We will obtain neuropsych testing for this patient. Given his age of 88 we can certainly offer medication such as Aricept and Namenda but I do not feel compelled to do so at this time until we have further memory assessment. 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 I feel it is reasonable for him to continue driving for now. Patient presents with his today. She provides history during the visit. Patient and are understanding and agreeable to the plan. All questions answered. 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) Relevant Medications aspirin 81 MG EC tablet carvedilol (Coreg) 25 MG tablet Leg swelling Relevant Medications potassium chloride CR (Klor-Con M10) 10 MEQ ER tablet Hyperlipidemia (CMS/HCC) Relevant Medications atorvastatin (Lipitor) 40 MG tablet Obstructive sleep apnea, adult Type 2 diabetes mellitus without complication, without long-term current use of insulin ([facility]) - Primary BMI 25.0-25.9,adult Edema of both lower extremities Relevant Medications furosemide (Lasix) 20 MG tablet hydroCHLOROthiazide (HYDRODiuril) 25 MG tablet Other Relevant Orders Basic metabolic panel Other Visit Diagnoses Essential (primary) hypertension (CMS/HCC) Relevant Medications hydroCHLOROthiazide (HYDRODiuril) 25 MG tablet documented in this encounter [facility] 09-05-2023 History of Present illness Narrative Hearing Aid Discussion: Pt here for HAD. 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 Discussed pros and cons of binaural amplification vs BICROS and pt decided to try BICROS. Pt likes beige and needs 3M sprinkler irrigation equipment mechanic for right ear and 3S sprinkler irrigation equipment mechanic for left ear. Will order aids from [place]. Pt scheduled for HAF. Cost at fitting will be $3400 documented in this encounter [facility] 04-26-[address] [facility] Cardiology Clinic Note Chief Complaint: Patient [...] 4. No anginal symptoms or arrhythmias noted. Echocardiogram-[facility] Name: FIDEL PALOMINO Study Date: 05/18/2022 09:03 AM B/P: 136 mmHg/80 mmHg HR: 62 bpm Date of : 1935 Location: [facility] Height: 71 in. Age: 86 year(s) Patient [...] valvular abnormalities Assessment: 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 arteries without angina Benign essential hypertension Cough syncope Dyslipidemia Plan: Continue guideline directed medical therapy for coronary artery disease including aspirin, mode (more content not included)... [facility] 10-06-2022 Evaluation + Plan note Associated Problem(s): COPD (chronic obstructive pulmonary disease) ([facility]) Continue to follow with pulmonology as recommended. Continue oxygen as before [facility] Work Phone: 10-06-2022 Miscellaneous Notes Associated Problem(s): COPD (chronic obstructive pulmonary disease) ([facility]) Continue to follow with pulmonology as recommended. Continue oxygen as before documented in this encounter [facility] Work Phone: 10-06-2022 History of Present illness Narrative Subjective Patient ID: Fidel Palomino is a 87 y.o. male who presents for 6 month f/u (Review labs. ) and Back Pain. HPI Review of Systems Objective There were no vitals taken for this visit. Physical Exam Assessment/Plan Subjective Reason for Visit: Fidel Palomino is an 87 y.o. male here for a Medicare Wellness visit. Past Medical, Surgical, and Family History reviewed and updated in chart. Reviewed all medications by prescribing practitioner or clinical pharmacist (such as prescriptions, OTCs, herbal therapies and supplements) and documented in the medical record. Back Pain Pertinent negatives include no chest pain or headaches. Hypertension The problem is unchanged. The problem is controlled. Pertinent negatives include no anxiety, blurred vision, chest pain, headaches, malaise/fatigue, neck pain, orthopnea, palpitations, peripheral edema, PND, shortness of breath or sweats. Risk factors for coronary artery disease include dyslipidemia and sedentary lifestyle. There are no compliance problems. Patient Self Assessment of Health Status Patient Self Assessment: Good Nutrition and Exercise Current Diet: Well Balanced Diet Adequate Fluid Intake: Yes Caffeine: Yes Exercise Frequency: Regularly Functional Ability/Level of Safety Cognitive Impairment Observed: No cognitive impairment observed Home Safety Risk Factors: Loose rugs Patient Care Team: Ailyn Baez DO as PCP - General (Family Medicine) Ailyn Baez DO as PCP - [facility] ACO Attributed Provider Review of Systems Constitutional: Negative. Negative for malaise/fatigue. HENT: Negative. Eyes: Negative. Negative for blurred vision. Respiratory: Negative for shortness of breath. Cardiovascular: Negative for chest pain, palpitations, orthopnea and PND. Gastrointestinal: Negative. Endocrine: Negative. Genitourinary: Negative. Musculoskeletal: Positive for back pain. Negative for neck pain. Skin: Negative. Allergic/Immunologic: Negative. Neurological: Negative for headaches. Hematological: Negative. Psychiatric/Behavioral: Negative. Objective Vitals: BP 161/82 (BP Location: Right arm, Patient Position: Sitting, BP Cuff Size: Large adult) Pulse 58 Temp 36.2 C (97.1 F) Resp 16 Ht 1.727 m (5' 8 ) Wt 87.8 kg (193 lb 9.6 oz) SpO2 94% BMI 29.44 kg/m Physical Exam Constitutional: General: He is not in acute distress. Appearance: He is not ill-appearing or diaphoretic. HENT: Head: Normocephalic and atraumatic. Right Ear: Tympanic membrane, ear canal and external ear normal. There is no impacted cerumen. Left Ear: Tympanic membrane, ear canal and external ear normal. There is no impacted cerumen. Nose: Nose normal. No rhinorrhea. Mouth/Throat: Mouth: Mucous membranes are moist. Pharynx: Oropharynx is clear. No oropharyngeal exudate or posterior oropharyngeal erythema. Eyes: General: Lids are normal. No scleral icterus. Right eye: No discharge. Left eye: No discharge. Conjunctiva/sclera: Conjunctivae normal. Cardiovascular: Rate and Rhythm: Normal rate and regular rhythm. Pulses: Normal pulses. Heart sounds: No murmur heard. Pulmonary: Effort: Pulmonary effort is normal. No respiratory distress. Breath sounds: No decreased breath sounds, wheezing, rhonchi or rales. Abdominal: General: Bowel sounds are normal. There is no distension. Palpations: Abdomen is soft. There is no mass. Tenderness: There is no abdominal tenderness. There is no guarding or rebound. Musculoskeletal: General: No swelling, tenderness or deformity. Cervical back: No rigidity or tenderness. Right lower leg: No edema. Left lower leg: No edema. Lymphadenopathy: Cervical: No cervical adenopathy. Upper Body: Right upper body: No supraclavicular adenopathy. Left upper body: No supraclavicular adenopathy. Skin: General: Skin is warm and dry. Coloration: Skin is not jaundiced or pale. Findings: No erythema, lesion or rash. Neurological: General: No focal deficit present. Mental Status: He is alert and oriented to person, place, and time. Sensory: No sensory deficit. Motor: No weakness or tremor. Coordination: Coordination normal. Gait: Gait normal. Psychiatric: Mood and Affect: Mood normal. Affect is not inappropriate. Behavior: Behavior normal. Assessment/Plan Problem List Items Addressed This Visit Respiratory COPD (chronic obstructive pulmonary disease) ([facility]) Current Assessment & Plan Continue to follow with pulmonology as recommended. 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 HTN (hypertension) - Primary Musculoskeletal Leg swelling Endocrine/Metabolic Type 2 diabetes mellitus without complication, without long-term current use of insulin ([facility]) Other Benign prostatic hyperplasia with weak urinary stream Hypercholesteremia Other Visit Diagnoses Routine general medical examination at a health care facility Acute midline low back pain without sciatica documented in this encounter [facility] Work Phone: 08-27-2022 Evaluation note Encounter Date Diagnosis Assessment [...] back pain home care material was printed [employer] Other 01-31-2022 NoteTransitional Care Management Contact Initial communication post- discharge: 1st attempt: 08/31/21 Sources of Information: [x]Patient, family member or career law clerk: Manasa Georgette (spouse) [x] Hospital Discharge Summary reviewed: [] Hospital fax received from: [] List of recent hospitalizations or ED visits reviewed : []Other: Date of Admission: 08/25/2021 Date of Discharge: 08/28/2021 Hospital Discharge diagnosis: Pelvic abscess in male ([facility]) Current symptoms/Patient concerns: Patient advises is doing ok can ambulate with and without walker has not heard from [facility] assisting with bathing and dressing. Per notes [place] [facility] called [place] office advises unable due to lack of staffing message sent to inpatient [facility] to advise for correct agency Medication changes: Yes If yes, what are they and does patient understand how and when to take? yes Medication list reviewed with patient: Yes Needs follow up appointment or procedure: Yes Future Appointments Date Time Department Provider Status 09/21/21 8:00 AM LIVER [phone] Jd Dubon MD Scheduled 09/22/21 8:00 AM SURGERY GENERAL [phone] Clotilde Pettit APRN-HOIST OPERATOR Scheduled 11/04/21 8:00 AM [facility] PULMONARY [phone] Tatyana Potter MD Scheduled Review need for or follow up on pending diagnostic test, referrals to specialist and treatment plans with patient/caregiver: No Community resources identified for patient/family: C i.e. [employer], [employer], [employer], [employer] Durable medical equipment ordered:Yes Education provided to patient/caregiver to support self management, ADL's, etc: ANDI offered Mode of Transportation: Patient arranges Additional information needed and requested:No Reminded to bring in all medications. (Old AND New) to future appointment. Interact with other health home care assistant involved in patient care:[facility] [employer]01-28-2022 NoteMedicine Intensive Care Unit Critical Care Progress Note Fidel Palomino 86 year old 204.8075 lbs MRN/Room: [id number] Length of stay: 2 day(s) Summary Fidel Palomino is a 86 year old male with a PMH of HTN, HLD, [facility] c/b illeus who presented to the hospital 08/25 with syncope/lightheadedness, nausea/poor appetite. Imaging at outside hospital showed a fluid collection in R paracolic gutter concerning for abscess. Transferred to [facility] for further management. IR placed intraabdominal drain for fluid collection 08/25. Recommended continued antibiotics with Vanc/Cefepime/Flagyl. Fluid cultures obtained from site. In the [facility] ED, imaging showed moderate R and [...] (15.4 mL/kg) [P.O.:960; I.V.:450 (0.2 mL/kg/hr)] Out: 1984 (21.4 mL/kg) [Urine:1915 (0.9 mL/kg/hr); Drainage:70] Net: [...] (more content not included)...[facility] [id number] NoteDISCHARGE [address] [id number] Fidel Palomino Date of : 1935 86 [...] Technically successful ultrasound-guided placement of a 10 Serbian pigtail catheter into right paracolic gutter abscess. [...] of HTN, HLD, recent appendectomy (07/28/21, at [facility]) c/b illeus???who presented???to the hospital 08/25???with syncope/lightheadedness, nausea/poor appetite. Imaging at outside hospital showed a fluid collection in R paracolic gutter concerning for abscess. Transferred to [facility] for further management. IR placed intraabdominal drain for fluid collection 08/25. Recommended continued antibiotics with Vanc/Cefepime/Flagyl. Fluid cultures obtained from site.? In the [facility] ED, imaging showed moderate R and [...] including test results Rubio Baker DO PGY-2 [id number] [facility] [id number] NotePHYSICAL THERAPY ACUTE EVALUATION Referral received, chart [...] available: Wheeled walker, tub bench, grab bars. PHYS THER Status: Independent living. Pt ambulated without an [...] Dep Max Mod Min CG CS DS VT I Comment Rolling x Supine>sit x HOB elevated. Sitting trial x Unsupported sitting at EOB. Transfer x Sit<>stand x Without an assistive device. Standing trial x Ambulation x 30 feet x2 without an assistive device. Pt demonstrated steady step-through gait pattern. Stairs x 4 steps with unilateral rail. Pt negotiated stairs utilizing a dipy-zspq-vtgv pattern. Balance: -Unsupported static sitting: independent. -(Un)supported [...] Guard Assist/Supervision 4 - Non = Modified Blair/Independent Patient/Family Education: Instructed pt in roles of [...] program Discharge lucero (more content not included)...[employer] [id number] NoteOCCUPATIONAL THERAPY INITIAL EVALUATION Patient seen from 0829 to 0850 on CCP3W unit for 21 minutes. Co-tx with PT due to high medical complexity, safety concerns, assist of 2 required for mobility and/or advanced airway in place. Admit date: 08/25/2021 4:58 AM Reason for Admit: patient is tx from [facility] for post op complications post appendectomy on [...] of risks and benefits of treatment Appearance: grid operator, Pulse Oximeter, IV, Rivers and Sequential Compression Devices (SCDs) Alertness: WFL Affect: WNL Cooperation/Behavior: Appropriate dialogue with therapist and Pleasant and cooperative Communication: WFL Pain: Pain ratin/10, Location: no pain Pain Relief Interventions Implemented: None required; No pain at this time Self Care: Assistance Level Dep Max Mod Min CG CS DS VT I Set-Up Comment Feeding x Independent Grooming/Hygiene x Standing at sink to complete hand hygiene Bathing:UB x Anticipate Bathing:LB x Based on functional reach/pain. Dressing:UB x Don gown Dressing: LB x Assist to don socks. Patient reports reports assist from required at baseline. Toileting x Seated at toilet, completes hygiene standing Transfers/Bed Mobility: Assistance Level Dep Max Mod Min CG CS DS VT I Set-Up Comment Toilet Transfers x Sit [...] With Patients permission ordered no equipment via [employer] Order. If any questions contact [facility] DME Provider at [phone]. ??? 6 Clicks Daily Activity OT 08/28/2021 Help from another person Eating meals 4 Help from another person taking care of (more content not included)...[facility] [id number] [facility] NOTE Referral from: Insurance verification:in progress Discussion with patient:to follow Home Health Agency:to be determined Start of care:to be determined Other:Following for HIVAT needs at md. Weekends, holidays or after hours contact [facility] intake @ [phone] Annette Cardozo RN Clinical Transition Specialties [facility] [phone] or [phone] [facility]01-27-2022 NoteBEDSIDE RN PICC LINE INSERTION PROCEDURE NOTE Date: 08/27/2021 Time: 1440 Patient [facility]: [facility] Indication for line: IV ANTIBIOTICS Consent obtained. [...] VERIFICATION Klarissa Ahuja RN Vascular Access TeamThe [facility]01-27-2022 NoteDNR Comfort Care Arrest- Do Not Intubate [...] Yes BARRIERS TO PLAN OF CARE: None PACKING HOUSE SUPERVISOR RN Carly Mcneal RN DAY SHIFT RN Ghislaine Baez RNSelect Medical [facility] DublinMavent[facility] [id number] NoteMedicine Intensive Care Unit Critical Care Progress Note Fidel Palomino 86 year old 205.0275 lbs MRN/Room: [id number]/CP3-129/1 Length of stay: 2 day(s) Summary Fidel Palomino is a 86 year old male with a PMH of HTN, HLD, recent appendectomy (07/28/21, at [facility]) c/b illeus who presented to the hospital 08/25 with syncope/lightheadedness, nausea/poor appetite. Imaging at outside hospital showed a fluid collection in R paracolic gutter concerning for abscess. Transferred to [facility] for further management. IR placed intraabdominal drain for fluid collection 08/25. Recommended continued antibiotics with Vanc/Cefepime/Flagyl. Fluid cultures obtained from site. In the [facility] ED, imaging showed moderate R and [...] data filed at (more content not included)...[employer] 08-26-2021 NoteSocial Work ICU Assessment: Referral: reporting manager screen for pt has living will but not with pt. SW met with pt and , Manasa at bedside. HX: 86 year old???male???with a h/o HTN, HLD, BPH, remote left inguinal hernia repair with mesh, s/p appendectomy 07/28/21 (done at [facility]) c/b ileus???who presented to [facility] ED for lightheadedness and dizziness. Living Situation: Pt reports he lives with in one story home. Family/Next of Kin: Manasa Palomino: [phone]. Pt has 4 adult children. Advance Directive Information: Pt reports he does not have ADs in place and only Last Will and Testament. 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 SW addressed the hierarchy of identification of substitute decision-makers in the state [facility] is (in order) court-appointed legal guardian, health-care power of workers compensation attorney, spouse, majority of adult children, parents, majority of adult siblings, and nearest relative. Finances/Insurance: Medicare A AND B and [employer]. Social Work Need/Indicators: SW met with [...] fOC list for HHC agencies pending PT/OT, MD curtis. SW will follow. 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 Imaging at outside hospital showed a fluid collection in R paracolic gutter concerning for abscess. Transferred to [facility] for further management. IR placed intraabdominal drain for fluid collection 08/25. Recommended continued antibiotics with Vanc/Cefepime/Flagyl. Fluid cultures obtained from site. In the [facility] ED, CBC with leukocytosis 18.2. CBC [...] 80 (!) 29 99 % Nasal cannula 5 08/25/21 1202 -- -- -- 79 (!) [...] Port #1 Capped;Patent (more content not included)...[employer] [id number] NoteMedicine Intensive Care Unit History and Physical Examination Fidel Palomino 86 year old [id number] lbs MRN/Room: [id number]/CP3-129/1 Admit Date: 08/25/2021 : 1935 PCP Contact: [...] of HTN, HLD, recent appendectomy (07/28/21, at [facility]) c/b illeus who presented to the hospital [...] showed small b/l pleural effusions. Transferred to [facility] for further management. IR placed intraabdominal [...] Nasal cannula 08/25 (more content not included)...[employer] [id number] Note EXAMINATION: US CATH DRAINAGE PERITONEAL (MARIO) [...] sterile fashion. Under ultrasound guidance, a 10 Serbian self-retaining all-purpose drainage catheter was advanced into [...] Technically successful ultrasound-guided placement of a 10 Serbian pigtail catheter into right paracolic gutter abscess. MACRO: NoneThe [facility]01-25-2022 NotePOST- PROCEDURE NOTE Pre-procedure Diagnosis: Right [...] of the procedure Jere Hamilton MD RadiologyThe [facility]01-25-2022 NoteMODIFIED HISTORY AND PHYSICAL: Procedure:Ultrasound guided [...] Directives (Living will, health care power of workers compensation attorney): none Code Status For This Procedure: Full Code Jere Hamilton MD RadiologyThe [facility]01-25-2022 NoteAcute Care Surgery - Plan of Care Note 86 year old male with PMHx HTN, HLD, BPH, remote L inguinal hernia repair w/ mesh, appendectomy (07/28/2021 at [facility]) c/b ileus presented to OSH with lightheadedness and transferred w/ bilateral pleural effusions and R paracolic gutter abdominal collection. Plan: -Admit to medicine for management of pulmonary effusions, UTI, DIONISIO -Plan for IR drain placement of fluid collection -Obtain cultures Assessment and plan to be discussed with Dr. Garcia. Denise Lincoln MD, MPH General Surgery PGY-1 ACS Consult: [phone] ACS Floor: [phone] Addendum Evaluated patient at bedside at [...] JA. Garcia. Nura Sanchez MD General Surgery [id number] [facility]12-28-2021 NoteCONSULTATION Consultation Date: 07-28-21 REASON FOR [...] he is willing to undergo the procedure. [facility] Signed and Approved by: DR GOYO VENTURA . 08/02/2021 10:29:00[facility]12-28-2021 NoteOPERATIVE NOTE OPERATION DATE: 07-28-21 ANESTHETIC: General. IV FLUIDS:Crystalloid 1,000 mL. AGILE COACH:JEAN Matthews PREOPERATIVE DIAGNOSIS:Acute appendicitis. POSTOPERATIVE DIAGNOSIS:Same. PROCEDURE [...] taken to the PACU in fair condition. [facility] Signed and Approved by: DR GOYO VENTURA . 08/02/2021 10:29:00[facility] complaint Narrative - Reported* FIDEL PALOMINO is here for an initial evaluation. * Reason for Visit: COPD, JOE,. * Appointment requested by: Ailyn Baez . 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) Mixed hyperlipidemia (CMS/HCC) Mixed hyperlipidemia documented in this encounter [facility] 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) Mixed hyperlipidemia (CMS/HCC) Mixed hyperlipidemia B12 deficiency Edema of both lower extremities Essential (primary) hypertension (CMS/HCC) Unspecified essential hypertension Leg swelling Swelling of limb Type 2 diabetes mellitus without complication, without long-term current use of insulin (CMS/HCC) Type 2 diabetes mellitus without complication, without long-term current use of insulin (CMS/HCC)- Primary B12 deficiency 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) Mixed hyperlipidemia (CMS/HCC) Mixed hyperlipidemia Primary hypertension (CMS/HCC) Unspecified essential hypertension Edema of both lower extremities Essential (primary) hypertension (CMS/HCC) Unspecified essential hypertension Leg swelling Swelling of limb Memory impairment of gradual onset Seborrheic keratosis of scalp- Primary documented in this encounter [facility] 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) Mixed hyperlipidemia (CMS/HCC) Mixed hyperlipidemia B12 deficiency Edema of both lower extremities Essential (primary) hypertension (CMS/HCC) Unspecified essential hypertension Leg swelling Swelling of limb Type 2 diabetes mellitus without complication, without long-term current use of insulin (CMS/HCC) Type 2 diabetes mellitus without complication, without long-term current use of insulin (CMS/HCC)- Primary B12 deficiency 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) Mixed hyperlipidemia (CMS/HCC) Mixed hyperlipidemia B12 deficiency Edema of both lower extremities Essential (primary) hypertension (CMS/HCC) Unspecified essential hypertension Leg swelling Swelling of limb Type 2 diabetes mellitus without complication, without long-term current use of insulin (CMS/HCC) Type 2 diabetes mellitus without complication, without long-term current use of insulin (CMS/HCC)- Primary B12 deficiency 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) Mixed hyperlipidemia (CMS/HCC) Mixed hyperlipidemia Primary hypertension (CMS/HCC) Unspecified essential hypertension Edema of both lower extremities Essential (primary) hypertension (CMS/HCC) Unspecified essential hypertension Leg swelling Swelling of limb Memory impairment of gradual onset Seborrheic keratosis of scalp- Primary Encounter for subsequent annual wellness visit (AWV) in Medicare patient- Primary Obstructive sleep apnea, adult Chronic obstructive pulmonary disease, unspecified COPD type (CMS/HCC) 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) Primary hypertension (CMS/HCC) Unspecified essential hypertension Benign prostatic hyperplasia with weak urinary stream BMI 25.0-25.9,adult Type 2 diabetes mellitus without complication, without long-term current use of insulin (CMS/HCC) Mixed hyperlipidemia (CMS/HCC) Mixed hyperlipidemia Edema of both lower extremities Essential (primary) hypertension (CMS/HCC) Unspecified essential hypertension Leg swelling Swelling of limb Pre-diabetes Other abnormal glucose Pleural effusion Unspecified pleural effusion documented in this encounter [facility] HealthcareEvaluation note* Diagnosis Primary hypertension- Primary Unspecified essential hypertension Hypercholesteremia Pure hypercholesterolemia Routine general medical examination at a health care facility Chronic obstructive pulmonary disease, unspecified COPD type (CMS/HCC) Type 2 diabetes mellitus without complication, without long-term current use of insulin (CMS/HCC) Leg swelling Swelling of limb Acute midline low back pain without sciatica Benign prostatic hyperplasia with weak urinary stream 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) Mixed hyperlipidemia (CMS/HCC) Mixed hyperlipidemia B12 deficiency Edema of both lower extremities Essential (primary) hypertension (CMS/HCC) Unspecified essential hypertension Leg swelling Swelling of limb Type 2 diabetes mellitus without complication, without long-term current use of insulin (CMS/HCC) Type 2 diabetes mellitus without complication, without long-term current use of insulin (CMS/HCC)- Primary B12 deficiency 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) Mixed hyperlipidemia (CMS/HCC) Mixed hyperlipidemia Primary hypertension (CMS/HCC) Unspecified essential hypertension Edema of both lower extremities Essential (primary) hypertension (CMS/HCC) Unspecified essential hypertension Leg swelling Swelling of limb Memory impairment of gradual onset Seborrheic keratosis of scalp- Primary Encounter for subsequent annual wellness visit (AWV) in Medicare patient- Primary Obstructive sleep apnea, adult Chronic obstructive pulmonary disease, unspecified COPD type (CMS/HCC) 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) Primary hypertension (CMS/HCC) Unspecified essential hypertension Benign prostatic hyperplasia with weak urinary stream BMI 25.0-25.9,adult Type 2 diabetes mellitus without complication, without long-term current use of insulin (CMS/HCC) Mixed hyperlipidemia (CMS/HCC) Mixed hyperlipidemia Edema of both lower extremities Essential (primary) hypertension (CMS/HCC) Unspecified essential hypertension Leg swelling Swelling of limb Pre-diabetes Other abnormal glucose Pleural effusion Unspecified pleural effusion Sensorineural hearing loss, bilateral- Primary documented in this encounter [facility] 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) Mixed hyperlipidemia (CMS/HCC) Mixed hyperlipidemia B12 deficiency Edema of both lower extremities Essential (primary) hypertension (CMS/HCC) Unspecified essential hypertension Leg swelling Swelling of limb Type 2 diabetes mellitus without complication, without long-term current use of insulin (CMS/HCC) Type 2 diabetes mellitus without complication, without long-term current use of insulin (CMS/HCC)- Primary B12 deficiency 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) Mixed hyperlipidemia (CMS/HCC) Mixed hyperlipidemia Primary hypertension (CMS/HCC) Unspecified essential hypertension Edema of both lower extremities Essential (primary) hypertension (CMS/HCC) Unspecified essential hypertension Leg swelling Swelling of limb Memory impairment of gradual onset Seborrheic keratosis of scalp- Primary Encounter for subsequent annual wellness visit (AWV) in Medicare patient- Primary Obstructive sleep apnea, adult Chronic obstructive pulmonary disease, unspecified COPD type (CMS/HCC) 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) Primary hypertension (CMS/HCC) Unspecified essential hypertension Benign prostatic hyperplasia with weak urinary stream BMI 25.0-25.9,adult Type 2 diabetes mellitus without complication, without long-term current use of insulin (CMS/HCC) Mixed hyperlipidemia (CMS/HCC) Mixed hyperlipidemia Edema of both lower extremities Essential (primary) hypertension (CMS/HCC) Unspecified essential hypertension Leg swelling Swelling of limb Pre-diabetes Other abnormal glucose Pleural effusion Unspecified pleural effusion Primary hypertension (CMS/HCC)- Primary Unspecified essential hypertension Chronic obstructive pulmonary disease, unspecified (CMS/HCC) Type 2 diabetes mellitus without complications (CMS/HCC) Obstructive sleep apnea, adult 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 HealthcareHistory general Narrative - Reported* Type Description Date Medical History hypercholesterolemia Medical History Hypertension Surgical History appendicitis 2021 Hospitalization History Appendicitis [facility] Cartesian Other History of Present illness Narrative* The [...] doing well with his blood pressure goals. [facility] Work Phone: History of Present [...] doing well with his blood pressure goals. -[facility] Work Phone: History of Present illness Narrative* EUNICE Wang - 08/31/2024 1:45 PM EST HACK: Pt was seen today to have his hearing aids checked. Both aids were cleaned, checked, and the domes/wax guards were changed. Listening check revealed the aids were in good working order. Otoscopy revealed partially occlusive cerumen, bilaterally, which was removed without incident. Pt pleased w ith performance post cleaning. He is to return as needed for routine maintenance. documented in [facility] encounter[facility] HealthcareReason for referral (narrative)* Consultation (Routine) - Authorized Specialty Diagnoses / Procedures Referred By Ed tobar Referred To Contact Primary Care Diagnoses Primary hypertension Hypercholesteremia Chronic obstructive pulmonary disease, unspecified COPD type (CMS/HCC) Type 2 diabetes mellitus without complication, without long-term current use of insulin (CMS/HCC) Leg swelling Acute midline low back pain without sciatica Benign prostatic hyperplasia with weak urinary stream 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 Procedures Follow Up In Advanced Primary Care - PCP Ailyn Baez DO [address] [place] [address] Referral ID Status Reason Start Date Expiration Date V isits Requested Visits Authorized [id number] Authorized 10/06/2022 04/04/2023 1 1 [facility] Work Phone: Reason for referral (narrative)* Consultation (Routine) - Pending Review Specialty Diagnoses / Procedures Referred By Contac t Referred To Contact Psychology Diagnoses Cognitive impairment Family history of dementia Procedures [place] OFFICE/OUTPATIENT [facility] 60 MINUTES Sohan Eden DO [address] [place] [id number] Fantasma Branham, PhD [address] [id number] Referral ID Status Reason Start Date Expiration Date Visits Requested Visits Authorized [id number] Pending Review Specialty Services Required 04/11/2024 10/08/2024 1 1 [facility] Summary Purpose Family History No Family History [...] to establish care. Previous Dr. Seaman in [facility] last seen 08/2021. He was recently released from [facility] on 08/28/2021 DX with infection from [...] and content) DATE CREATED AUTHOR 08/25/2021 [employer] DATE CREATED AUTHOR AUTHOR'S ORGANIZ ATION 10/23/2021 [employer] DATE CREATED AUTHOR AUTHOR'S ORGANIZ ATION 12/13/2021 [facility] DATE CREATED AUTHOR AUTHOR'S ORGANIZ ATION 04/08/2022 [employer] DATE CREATED AUTHOR AUTHOR'S ORGANIZ ATION 10/08/2022 [facility] DATE CREATED AUTHOR AUTHOR'S ORGANIZ ATION 02/08/2023 [facility] DATE CREATED AUTHOR AUTHOR'S ORGANIZ ATION 04/16/2024 [facility] DATE CREATED AUTHOR AUTHOR'S ORGANIZ ATION 09/12/2024 [facility] EPIC REASON FOR VISIT (unrecogniz ed section and content) Reason Comments Suspicious Skin Lesion Specialty Diagnoses / Procedures Referred By Ed tobar Referred To Contact Dermatology Diagnoses Seborrheic keratosis of scalp Procedures CA OFFICE/OUTPATIENT NEW HIGH MDM 60 MINUTES Annette Whitfield NP [address] [place] [address] Phone: tel: fax: Yung Nicole, PROJECT ENG-HOIST OPERATOR [address] [place] [address] Phone: tel: fax: Referral ID Status Reason Start Date Expiration Date V isits Requested Visits Authorized [id number] Closed Specialty Services Required 05/14/2024 11/10/2024 1 1 Reason Comments 6 month f/u Review labs. Back Pain Care Teams (unrecognized sec tion and content) Hospital Clerk Relationship Specialty Start Date End Date Ailyn Baez MD [address] [place] [address] PCP - General Family Medicine 02/23/23 Annette Whitfield NP [address] [place] [phone] Nurse Practitioner Family Medicine 08/01/22 Hospital Clerk Relationship Specialty Start Date End Date Ailyn Baez MD [address] [place] [address] PCP - General Family Medicine 02/23/23 Annette Whitfield NP [address] [place] [phone] Nurse Practitioner Family Medicine 08/01/22 Hospital Clerk Relationship Specialty Start Date End Date Ailyn Baez MD [address] [place] [address] PCP - General Family Medicine 02/23/23 Annette Whitfield NP [address] [place] [address] Nurse Practitioner Family Medicine 08/01/22 Hospital Clerk Relationship Specialty Start Date End Date Dilip Hensley MD [address] [place] [phone] PCP - General Family Medicine 05/14/24 Annette Whitfield NP [address] [place] [address] Nurse Practitioner Family Medicine 08/01/22 Hospital Clerk Relationship Specialty Start Date End Date Dilip Hensley MD [address] [place] [address] PCP - General Family Medicine 05/14/24 Annette Whitfield NP [address] [place] [phone] Nurse Practitioner Family Medicine 08/01/22 Hospital Clerk Relationship Specialty Start Date End Date Dilip Hnesley MD [address] [place] [phone] PCP - General Family Medicine 05/14/24 Annette Whitfield NP [address] [place] [phone] Nurse Practitioner Family Medicine 08/01/22 Hospital Clerk Relationship Specialty Start Date End Date Dilip Hensley MD [address] [place] [phone] PCP - General Family Medicine 05/14/24 Annette Whitfield NP [address] [place] [address] Nurse Practitioner Family Medicine 08/01/22 Hospital Clerk Relationship Specialty Start Date End Date Dilip Hensley MD [address] [place] [phone] PCP - General Family Medicine 05/14/24 Annette Whitfield NP [address] [place] [address] Nurse Practitioner Family Medicine 08/01/22 Hospital Clerk Relationship Specialty Start Date End Date Dilip Hensley MD [address] [place] [phone] PCP - General Family Medicine 05/14/24 Annette Whitfield NP [address] [place] [address] Nurse Practitioner Family Medicine 08/01/22 Hospital Clerk Relationship Specialty Start Date End Date Ailyn Baez DO [address] [place] [address] PCP - [facility] Attributed Provider 08/01/21 Ailyn Baez DO [address] [place] [address] PCP - General Family Medicine 10/06/22 10/06/22 Hospital Clerk Relationship Specialty Start Date End Date Ailyn Baez MD [address] [place] [address] PCP - General Family Medicine 02/23/23 Annette Whitfield, KELL [address] [place] [phone] Nurse Practitioner Family Medicine 08/01/22 Hospital Clerk Relationship Specialty Start Date End Date Ailyn Baez MD [address] [place] [address] PCP - General Family Medicine 02/23/23 Annette Whitfield, HYDROLOGICAL TECHNICAL OFFICER [address] [place] [phone] Nurse Practitioner Family Medicine 08/01/22 Hospital Clerk Relationship Specialty Start Date End Date Dilip Hensley MD [address] [place] [address] PCP - General Family Medicine 05/14/24 Annette Whitfield, KELL [address] [place] [address] Nurse Practitioner Family Medicine 08/01/22 Hospital Clerk Relationship Specialty Start Date End Date Dilip Hensley MD [address] [place] [phone] PCP - General Family Medicine 05/14/24 Annette Whitfield NP [address] [place] [phone] Nurse Practitioner Family Medicine 08/01/22 Hospital Clerk Relationship Specialty Start Date End Date Dilip Hensley MD [address] [place] [phone] PCP - General Family Medicine 05/14/24 Annette Whitfield NP [address] [place] [address] Nurse Practitioner Family Medicine 08/01/22 Hospital Clerk Relationship Specialty Start Date End Date Dilip Hensley MD [address] [place] [phone] PCP - General Family Medicine 05/14/24 Annette Whitfield NP [address] [place] [address] Nurse Practitioner Family Medicine 08/01/22 FOR RECORDS [...] BE BASED ON THE PRIMARY CLINICAL RECORDS. [employer] [facility] provides no warranty or guarantee of the accuracy or completeness of information in this document.
[2024-09-19 11:36] LABS: Bilirubin Urine NEGATIVE (NEGATIVE); Blood Urine NEGATIVE (NEGATIVE); Clarity Urine CLEAR (CLEAR); Color Urine YELLOW (YELLOW); Glucose Urine UA NEGATIVE (NEGATIVE); Ketones Urine NEGATIVE (NEGATIVE); Leukocyte Esterase Urine NEGATIVE (NEGATIVE); Nitrite Urine NEGATIVE (NEGATIVE); Protein Urine NEGATIVE (NEG/TRACE); pH Urine 7.5 (5.0-9.0)
[2024-09-19 11:36] LABS: Basophils Absolute Auto 0.1 10^3/uL (0.0-0.1); Basophils Percent Auto 1.2 % (0.2-2.0); Eosinophils Absolute Auto 0.4 10^3/uL (0.0-0.7); Eosinophils Percent Auto 5.7 % (0.9-7.0); Hematocrit 41.3 % (42.0-54.0); Hemoglobin 13.3 g/dL (14.0-18.0); Immature Granulocytes Abs Auto 0.02 10^3/uL (0.00-0.03); Immature Granulocytes Pct Auto 0.3 % (0.0-0.5); Lymphocytes Absolute Auto 1.9 10^3/uL (1.2-3.8); Lymphocytes Percent Auto 28.2 % (20.5-60.0); Mean Corpuscular HGB Conc 32.2 g/dL (29.9-35.2); Mean Corpuscular Volume 93.2 fL (80.0-94.0); Mean Platelet Volume 10.4 fL (9.5-13.5); Monocytes Absolute Auto 0.7 10^3/uL (0.3-0.8); Monocytes Percent Auto 9.9 % (1.7-12.0); Neutrophils Absolute Auto 3.8 10^3/uL (1.4-6.5); Neutrophils Percent Auto 54.7 % (43.0-75.0); Platelet Count 180 10^3/uL (150-450); Red Blood Count 4.43 10^6/uL (4.70-6.10); White Blood Count 6.9 10^3/uL (4.0-11.0)
[2024-09-19 11:37] LABS: Urine Microscopic Indicated NO
[2024-09-19 11:47] LABS: Creatinine Urine Random 174.86 mg/dL (20.00-300.00); Microalbumin Urine Random <1.3 mg/dL (<=30.0)
[2024-09-19 12:19] LABS: Alanine Aminotransferase 45 U/L (16-63); Albumin Level 3.7 g/dL (3.4-5.0); Alkaline Phosphatase 153 U/L (46-116); Anion Gap 9.7; Aspartate Amino Transferase 30 U/L (15-37); Bilirubin Total 0.6 mg/dL (0.2-1.0); Calcium 9.1 mg/dL (8.5-10.1); Carbon Dioxide 35.2 mmol/L (21.0-32.0); Chloride 101 mmol/L (98-107); Chol HDL Ratio 2.4; Cholesterol 142 mg/dL (<=200); Estimated GFR (African America >60 (>=60 mL/min/1.73m^2); Estimated GFR (Non-African Ame >60 (>=60 mL/min/1.73m^2); Globulin 3.7 g/dL; Glucose 117 mg/dL (74-106); HDL Cholesterol 58 mg/dL (40-60); Potassium 3.9 mmol/L (3.5-5.1); Sodium 142 mmol/L (136-145); Total Protein 7.4 g/dL (6.4-8.2); Triglycerides 70 mg/dL (<=150)
[2024-09-19 12:33] LABS: Prostate Specific Antigen Scrn <0.13 ng/mL (<=4.00)
[2024-09-20 04:06] LABS: Vitamin B12 691 pg/mL (232-1245)
== END 2024-09-19 11:17 | disposition home or self-care (01) ==
LOC: LAB 11:18
PROVIDERS: PCP Nurse Practitioner; Visit Provider Nurse Practitioner
DX: E78.2 Mixed hyperlipidemia (principal); I10 Essential (primary) hypertension; J44.9 Chronic obstructive pulmonary disease, unspecified; G47.33 Obstructive sleep apnea (adult) (pediatric); E53.8 Deficiency of other specified B group vitamins; E11.9 Type 2 diabetes mellitus without complications; I25.10 Atherosclerotic heart disease of native coronary artery without angina pectoris; Z12.5 Encounter for screening for malignant neoplasm of prostate
CPT/HCPCS: 36415; 80053; 80061; 81003; 82043; 82570; 82607; 85025; G0103

== ENCOUNTER 2024-10-16 11:28 | Outpatient (OUT) | payer MEDICARE, BC, SELFPAY ==
--- OUTSIDE RECORDS SUMMARY | 2024-10-16 11:40 | XMS_ITS | CCD ---
Author Organization [facility] Care Team Providers Care Lockstitch Sleeve Setter Name Role Phone PAY, DR STUART Attending [...] TIFFANI Consulting Unavailable CEZAR SOARES Consulting Unavailable Laura, Edward Consulting Unavailable Francisca, [...] Unavailable AILYN BAEZ Attending Unavailable Bullimore, Marilyn Gabe Admitting Unavailable Bullimore, Marilyn E Attending Unavailable Ailyn Baez Primary Care Unavailable Ailyn Baez MD Primary Care Provider Nahid BUS AND TROLLEY DISPATCHER, Annette Unavailable RAMSEY JIMENEZ Attending Unavailable BEATRIZ ARAMBULA Attending Unavailable Aichholyadi BUS AND TROLLEY DISPATCHER, Annette Unavailable Dilip Hensley MD Primary Care Provider Ailyn Baez DO Unavailable [phone] Ailyn Baez DO Primary Care Provider FABIOLA [...] (1 source) Lidocaine Drug Allergy 08-30-2013 [facility] Repository Medications Current Medications Medication Drug Class(es) Dates Sig (Normalized) Sig (Original) aspirin 81 mg delayed release oral tablet (20 sources) Platelet Aggregation Inhibitor, Nonsteroidal Anti-inflammatory Drug Start: 03-13-2024 End: 09-12-2024 take 1 tablet by mouth once daily aspirin 81 MG EC tablet Indications: 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) Take 1 tablet (81 mg) by mouth Daily 90 tablet 1 06/14/2024 09/12/2024 Active Start: 09-12-2023 End: 12-11-2023 take 1 tablet by mouth once daily aspirin 81 MG EC tablet Indications: 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) Take 1 tablet (81 mg) by mouth 1 (one) time each day at the same time 90 tablet 1 09/12/2023 12/11/2023 Active take 1 tablet by gisela th once daily aspirin 81 mg EC tablet [...] mouth at bedtime 90 tablet 1 06/14/2024 Active Start: 05-25-2021 End: 12-11-2023 take 1 tablet by mouth once daily atorvastatin (Lipitor) 40 mg tablet Indications: Primary hypertension , Hypercholesteremia , Type 2 diabetes mellitus without complication, without long-term current use of insulin (CMS/HCC) , 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 Take with meals. 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 90 tablet 1 06/14/2024 Active Start: 05-25-2021 End: 12-11-2023 take 1 tablet by mouth in the morning hydroCHLOROthiazide (HYDRODiuril) 25 MG tablet Indications: Primary hypertension (CMS/HCC) , Edema of both lower extremities , Essential (primary) hypertension (CMS/HCC) Take 1 tablet (25 mg) by mouth in the morning. 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 CURRENT USE OF ASPIRIN] Onset: 08-25-2021 Episodic Other aftercare (1 source) Other retirement (current) drug therapy; Translations: [OTH LUBRICATION SUPERVISOR CURRENT DRUG THERAPY] Onset: 08-25-2021 Episodic Other [...] of liver] Onset: 08-28-2021 04-25-2023 Chronic Other liver diseases (2 sources) Alkaline phosphatase raised; Translations: [Abnormal levels of other serum enzymes] Onset: 09-19-2024 09-19-2024 Episodic Other lower respiratory disease (1 source) Other [...] conditions (not mental disorders or infectious disease) (8 sources) Abnormal findings on diagnostic imaging of other abdominal regions, including retroperitoneum; Translations: [Patient encounter status] Onset: 08-17-2021 09-10-2024 Episodic Other skin disorders (2 sources) Inflamed seborrheic keratosis; Translations: [Inflamed seborrheic keratosis] 05-16-2024 Episodic Residual codes; unclassified (6 sources) Obstructive sleep apnea syndrome; Translations: [Obstructive sleep apnea (adult)(pediatric)] Chronic Residual codes; unclassified (1 source) Acquired absence of other specified parts of digestive tract; Translations: [ACQ ABSENCE OTH PART DIGESTV TRACT] Onset: 08-20-2021 Episodic Residual codes; unclassified (1 source) Insomnia, unspecified; Translations: [INSOMNIA UNSPECIFIED] Onset: 08-17-2021 Episodic Screening and history of mental health [...] Onset: 03-18-2021 Resolved: 09-10-2024 Episodic Mood disorders (11 sources) Mood disorders Onset: 06-14-2024 06-14-2024 Nutritional deficiencies (20 sources) Cobalamin deficiency; Translations: [...] cognitive functions and awareness] 04-11-2024 Episodic Other nutritional; endocrine; and metabolic disorders (20 sources) Overweight in adulthood with body mass index of 25 or more but less than 30; Translations: [Body Mass Index 29.0-29.9, adult] Onset: 08-09-2023 08-09-2023 Episodic Other skin disorders (20 sources) Seborrheic keratosis of scalp; Translations: [Other seborrheic keratosis] Onset: 05-14-2024 05-14-2024 Episodic Other upper respiratory infections (20 sources) Acute sinusitis; Translations: [Other acute sinusitis] Onset: 08-09-2023 Resolved: 09-12-2023 08-09-2023 Episodic Peritonitis and intestinal abscess (20 sources) Abdominal abscess; Translations: [Abscess, abdomen] Onset: 08-28-2021 Resolved: 04-07-2022 3 Episodic Pleurisy; pneumothorax; pulmonary collapse (20 sources) Pleural effusion; Translations: [Unspecified pleural effusion] Onset: 08-28-2021 04-25-2023 Episodic Residual codes; unclassified (20 sources) Obstructive sleep apnea of adult; Translations: [Obstructive sleep apnea (adult)(pediatric)] Onset: 08-28-2021 Resolved: 09-10-2024 04-25-2023 Chronic Residual codes; unclassified (20 sources) Insomnia; Translations: [Insomnia, unspecified] Onset: 08-24-2022 04-25-2023 Episodic Residual codes; unclassified (20 sources) Bilateral lower limb edema; Translations: [Localized edema] Onset: 08-24-2022 09-05-2023 Episodic Residual codes; unclassified (20 sources) Memory impairment; Translations: [Other amnesia] Onset: [...] Test Name Value Interpretation Reference Range Facility [facility] UA (CLEAN/CATCH) MICROSC OPIC IF INDICATEon 09-19-2024 BILIRUBIN URINE Negative NEGATIVE [facility] BLOOD URINE Negative NEGATIVE [facility] Clarity (U) CLEAR CLEAR [facility] Color (U) YELLOW YELLOW [facility] GLUCOSE URINE UA Negative NEGATIVE mg/dL [facility] Ketones Ql (U) Negative NEGATIVE mg/dL [facility] Leukocyte esterase Test strip Ql (U) Negative NEGATIVE [facility] NITRITE URINE Negative NEGATIVE [facility] pH (U) 7.5 [pH] 5.0 - 9.0 [facility] PROTEIN URINE Negative NEG/TRACE mg/dL [facility] SPECIFIC GRAVITY URINE 1.010 1.005 - 1.025 [facility] URINE MICROSCOPIC INDICATED NO [facility] UROBILINOGEN URINE 1.0 EU/dL 0.2 - 1.0 EU/dL [facility] HbA1c (Bld) [Mass fraction]o n 09-10-2024 Interpretation and review of laboratory results Abnormal [facility] - Hematology and Cell countson 09-10-2024 HbA1c (Bld) [Mass fraction] 6.20 % [facility] No Panel Informationon 05-16 [facility] Office Visiton 04-16-2024 Follow-up visit [id number] GeorgetteChristiana díaz F 1935 [facility] Provider Department [place] 04/16/2024 120-BEATRIZ ARAMBULA CARD [facility] No family history on file Level of Service:52007 [place] OFFICE/OUTPATIENT ESTABLISHED LOW MDM 20 MIN Normal [facility] Office Visiton 04-26-2023 Follow-up visit [id number] Christiana Palomino F 1935 [facility] Provider Department [facility] 04/26/2023 271-RAMSEY JIMENEZ CARD [facility] No family history on file Level of Service:47639 [place] OFFICE/OUTPATIENT ESTABLISHED LOW MDM 20-29 MIN Normal [facility] Office Visit (Family Medicin e)on 04-07-2022 [...] Requested for:07Apr2022; Comprehensive Metabolic Panel; Status:Active; Requested for:[id number]; Hemoglobin A1C; Status:Active; Requested for:[id number]; Lipid Panel; Status:Active; Requested for:[id number]; Magnesium, Serum; Status:Active; Requested for:[id number]; TSH WITH REFLEX TO FREE T4 IF ABNORMAL; Status:Active; Requested for:[id number]; COPD (chronic obstructive pulmonary disease), Leg swelling Cardiology - General Referral Evaluation and Treatment Evaluate AND Treat dr michael justin Status: Active Requested for: [id number] AMA Intake Activity Log Entry by Donya [...] disease) (496) (J44.9) 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 Normal [facility] BNPon 12-08-2021 Natriuretic peptide B (Bld) [Mass/Vol] 63 pg/mL Normal 0 - 99 [facility] Comment on above: Result Comment: . <1 00 pg/mL - Heart failure unlikely 100-299 pg/mL - Intermediate probability of acute heart . failure exacerbation. Correlate with clinical . context and patient history. >=300 pg/mL - Heart Failure likely. Correlate with clinical . context and patient history. BNP testing is performed using different testing methodology at [facility] than at other [facility]. Direct result comparisons should only be made within the same method. Performed By: #### B NP2 #### [address] [address] CBC AND DIFFERENTIALon 12-08 % AUTOMATED IMMATURE GRAN 0.3 % Normal 0.0 - 0.9 [facility] Comment on above: Result Comment: Mamie ture Granulocyte Count (IG) includes promyelocytes, myelocytes and metamyelocytes but does not include bands. Percent differential counts (%) should be interpreted in the context of the absolute cell counts (cells/L). Performed By: #### C BCDF #### [address] [address] Basophils (Bld) [#/Vol] 0.09 10*3/uL Normal 0.00 - 0.10 [facility] Comment on above: Performed By: #### C BCDF #### [address] [address] Basophils/100 WBC (Bld) 1.3 % Normal 0.0 - 2.0 [facility] Comment on above: Performed By: #### C BCDF #### [address] [address] Eosinophils (Bld) [#/Vol] 0.39 10*3/uL Normal 0.00 - 0.40 [facility] Comment on above: Performed By: #### C BCDF #### [address] [address] Eosinophils/100 WBC (Bld) 5.6 % Normal 0.0 - 6.0 [facility] Comment on above: Performed By: #### C BCDF #### [address] [address] Erythrocyte distribution width (RBC) [Ratio] 13.2 % Normal 11.5 - 14.5 [facility] Comment on above: Performed By: #### C BCDF #### [address] [address] Hematocrit (Bld) [Volume fraction] 42.3 % Normal 41.0 - 52.0 [facility] Comment on above: Performed By: #### C BCDF #### [address] [address] Hemoglobin (Bld) [Mass/Vol] 13.2 g/dL Low 13.5 - 17.5 [facility] Comment on above: Performed By: #### C BCDF #### [address] [address] Lymphocytes (Bld) [#/Vol] 1.98 10*3/uL Normal 0.80 - 3.00 [facility] Comment on above: Performed By: #### C BCDF #### [address] [address] Lymphocytes/100 WBC (Bld) 28.4 % Normal 13.0 - 44.0 [facility] Comment on above: Performed By: #### C BCDF #### [address] [address] MCHC (RBC) [Mass/Vol] 31.2 g/dL Low 32.0 - 36.0 [facility] Comment on above: Performed By: #### C BCDF #### [address] [address] MCV (RBC) [Entitic vol] 95 fL Normal 80 - 100 [facility] Comment on above: Performed By: #### C BCDF #### [address] [address] Monocytes (Bld) [#/Vol] 0.69 10*3/uL Normal 0.05 - 0.80 [facility] Comment on above: Performed By: #### C BCDF #### [address] [address] Monocytes/100 WBC (Bld) 9.9 % Normal 2.0 - 10.0 [facility] Comment on above: Performed By: #### C BCDF #### [address] [address] Neutrophils (Bld) [#/Vol] 3.79 10*3/uL Normal 1.60 - 5.50 [facility] Comment on above: Performed By: #### C BCDF #### [address] [address] Neutrophils/100 WBC (Bld) 54.5 % Normal 40.0 - 80.0 [facility] Comment on above: Performed By: #### C BCDF #### [address] [address] NUCLEATED RBC 0.0 /100 WBC Normal 0.0 - 0.0 [facility] Comment on above: Performed By: #### C BCDF #### [address] [address] Platelets (Bld) [#/Vol] 148 10*3/uL Low 150 - 450 [facility] Comment on above: Performed By: #### C BCDF #### [address] [address] RBC 4.43 x10E12/L Low 4.50 - 5.90 [facility] Comment on above: Performed By: #### C BCDF #### [address] [address] WBC (Bld) [#/Vol] 7.0 10*3/uL Normal 4.4 - 11.3 [facility] Comment on above: Performed By: #### C BCDF #### [address] [address] CHEST 2 VIEW PA AND LATon CHEST 2 VIEW PA AND LAT Patient Name: FIDEL PALOMINO STUDY: TH CHEST 2 VIEW PA AND LAT; 12/08/2021 9:30 am INDICATION: for b/l effusion size J90: Pleural effusion. COMPARISON: None. ACCESSION NUMBER(S): [id number] ORDERING CLINICIAN: NARENDRA NEWTON FINDINGS: CHEST/LUNGS: The [...] Electronically signed by: MISSY ABREU MD Normal [facility] COMPREHENSIVE PANELon 2021 Albumin [Mass/Vol] 3.9 g/dL Normal 3.4 - 5.0 [facility] Comment on above: Performed By: #### C MP #### [address] [address] ALP [Catalytic activity/Vol] 106 U/L Normal 33 - 136 [facility] Comment on above: Performed By: #### C MP #### [address] [address] ALT [Catalytic activity/Vol] 18 U/L Normal 10 - 52 [facility] Comment on above: Result Comment: Anabelle ents treated with Sulfasalazine may generate falsely decreased results for ALT. Performed By: #### C MP #### [address] [address] Anion gap [Moles/Vol] 11 mmol/L Normal 10 - 20 [facility] Comment on above: Performed By: #### C MP #### [address] [address] AST [Catalytic activity/Vol] 19 U/L Normal 9 - 39 [facility] Comment on above: Performed By: #### C MP #### [address] [address] Bilirubin [Mass/Vol] 0.5 mg/dL Normal 0.0 - 1.2 [facility] Comment on above: Performed By: #### C MP #### [address] [address] Calcium [Mass/Vol] 9.3 mg/dL Normal 8.6 - 10.3 [facility] Comment on above: Performed By: #### C MP #### [address] [address] Chloride [Moles/Vol] 98 mmol/L Normal 98 - 107 [facility] Comment on above: Performed By: #### C MP #### [address] [address] Creatinine [Mass/Vol] 0.75 mg/dL Normal 0.50 - 1.30 [facility] Comment on above: Performed By: #### C MP #### [address] [address] GFR/1.73 sq M.predicted among non-blacks MDRD (S/P/Bld) [Vol rate/Area] 89 mL/min/{1.73_m2} Normal >90 [facility] Comment on above: Result Comment: CALC ULATIONS OF ESTIMATED GFR ARE PERFORMED USING THE 2020 CKD-EPI STUDY REFIT EQUATION WITHOUT THE RACE VARIABLE FOR THE IDMS-TRACEABLE CREATININE METHODS. https://jasn.asnjournals.org/content//ASN.23650236 88 Performed By: #### C MP #### [address] [address] Glucose [Mass/Vol] 130 mg/dL High 74 - 99 [facility] Comment on above: Performed By: #### C MP #### [address] [address] HCO3 (Bld) [Moles/Vol] 32 mmol/L Normal 21 - 32 [facility] Comment on above: Performed By: #### C MP #### [address] [address] Potassium [Moles/Vol] 3.6 mmol/L Normal 3.5 - 5.3 [facility] Comment on above: Performed By: #### C MP #### [address] [address] Protein [Mass/Vol] 7.3 g/dL Normal 6.4 - 8.2 [facility] Comment on above: Performed By: #### C MP #### [address] [address] Sodium [Moles/Vol] 137 mmol/L Normal 136 - 145 [facility] Comment on above: Performed By: #### C MP #### [address] [place] [address] Urea nitrogen [Mass/Vol] 20 mg/dL Normal 6 - 23 [facility] Comment on above: Performed By: #### C MP #### [address] [address] Complete Blood Count + Diffe rentialon 12-08-2021 Basophils/100 WBC (Bld) 1.3 % 0.0 - 2.0 [place] [address] Work Phone: Erythrocyte distribution width (RBC) [Ratio] 13.2 % See Below [place] [address] Work Phone: Comment on above: Reference Range: 11. 5 - 14.5 Hematocrit (Bld) [Volume fraction] 42.3 % See Below [place] [address] Work Phone: Comment on above: Reference Range: 41. 0 - 52.0 Hemoglobin (Bld) [Mass/Vol] 13.2 g/dL below low threshold See Below [place] [address] Work Phone: Comment on above: Reference Range: 13. 5 - 17.5 Lymphocytes/100 WBC (Bld) 28.4 % See Below [place] [address] Work Phone: Comment on above: Reference Range: 13. 0 - 44.0 MCHC (RBC) [Mass/Vol] 31.2 g/dL below low threshold See Below [place] [address] Work Phone: Comment on above: Reference Range: 32. 0 - 36.0 MCV (RBC) [Entitic vol] 95 fL 80 - 100 -Pulmonary [place] [address] Work Phone: Monocytes/100 WBC (Bld) 9.9 % 2.0 - 10.0 -Pulmonary [place] [address] Work Phone: Neutrophils/100 WBC (Bld) 54.5 % See Below -[place] [address] Work Phone: Comment on above: Reference Range: 40. 0 - 80.0 Platelets (Bld) [#/Vol] 148 10*3/uL below low threshold 150 - 450 -Pulmonary [place] [address] Work Phone: RBC (Bld) [#/Vol] 4.43 {x10E12/L} below low threshold See Below -Pulmonary [place] [address] Work Phone: Comment on above: Reference Range: 4.5 0 - 5.90 WBC (Bld) [#/Vol] 7.0 10*3/uL 4.4 - 11.3 -Pul monary [place] [address] Work Phone: Complete Blood Count + Differential 0.09 {x10E9/L} See Below [facility] [place] [address] Work Phone: Comment on above: Reference Range: 0.0 0 - 0.10 Complete Blood Count + Differential 0.39 {x10E9/L} See Below -Pulmonary [place] [address] Work Phone: Comment on above: Reference Range: 0.0 0 - 0.40 Complete Blood Count + Differential 0.69 {x10E9/L} See Below -Pulmonary [place] [address] Work Phone: Comment on above: Reference Range: 0.0 5 - 0.80 Complete Blood Count + Differential 1.98 {x10E9/L} See Below -Pulmonary [place] [address] Work Phone: Comment on above: Reference Range: 0.8 0 - 3.00 Complete Blood Count + Differential 3.79 {x10E9/L} See Below [place] [address] Work Phone: Comment on above: Reference Range: 1.6 0 - 5.50 Complete Blood Count + Differential 5.6 % 0.0 - 6.0 [place] [address] Work Phone: Complete Blood Count + Differential 0.3 % 0.0 - 0.9 [place] [address] Work Phone: Comment on above: Immature Granulocyte Count (IG) includes promyelocytes, myelocytes and metamyelocytes but does not include bands. Percent differential counts (%) should be interpreted in the context of the absolute cell counts (cells/L). Complete Blood Count + Differential 0.0 {/100_WBC} 0.0 - 0.0 [place] [address] Work Phone: Follow Up (Pulmonary Medicin e)on [...] pulmonary disease); CHELSEA = N; Sent To: [facility]; Last Updated By: System, Health Elementser; 12/08/2021 10:32:38 AM Brain Natriuretic Peptide BNP; Status:Active; Requested for:[id number]; Perform:Lab Services - Lab To Draw (Blood Test); Due:08Mar2022;Ordered ; For:COPD (chronic obstructive pulmonary disease); Ordered By:Narendra Newton; Complete Blood Count + Differential; Status:Active; Requested for:08Dec2021; Perform:Lab Services - Lab To Draw (Blood Test); Due:08Mar2022;Ordered ; For:COPD (chronic obstructive pulmonary disease); Ordered By:Narendra Newton; Complete PFT w/o ABG; Status:Hold For - Scheduling; Requested for:08Dec2021; Perform:[facility]; Due:08Mar2022;Ordered ; For:COPD (chronic obstructive pulmonary [...] By: Narendra Newton Performed: Order Comments: near [place] Due: 08Mar2022 Renew: Potassium Chloride ER 10 MEQ Oral Capsule Extended Release; TAKE 1 CAPSULE BY MOUTH EVERY DAY Rx By: Narendra Newton; Dispense: 30 Days ; #:30 Capsule; Refill: 3;For: HTN (hypertension); CHELSEA = N; Sent To: [facility]; Msg to Pharmacy: on days when you take lasix; Last Updated By: SystemWorkMeIner; 12/08/2021 10:33:53 AM Echocardiogram; Status:Hold For - Scheduling; Requested for:08Dec2021; Perform:[facility] ([place]); Due:08Mar2022;Ordered ; For:Shortness of breath at rest; Ordered By:Narendra Newton; Patient Discussion/Summary By signing my name below, IVonnie Scribe, attest that this documentation has been [...] sleep study performed in the past at [facility] with use of a CPAP [...] of acute appendicitis and underwent appendectomy at [facility] in 07/2021 which was complicated by intra-abdominal infection leading to drainage at [facility] on August 25, 2021. . 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 Assessment; 86 year old male with medical history of lower extremity edema and obstructive sleep apnea, not on CPAP. He has a history of acute appendicitis and underw (more content not included)... Normal [facility] Laboratory - Chemistry and C hemistry - challengeon 12-08-2021 Albumin BCP dye [Mass/Vol] 3.9 g/dL 3.4 - 5.0 [facility] [place] [address] Work Phone: ALP [Catalytic activity/Vol] 106 U/L 33 - 136 [place] [address] Work Phone: ALT With P-5'-P [Catalytic activity/Vol] 18 U/L 10 - 52 [place] [address] Work Phone: Comment on above: Patients treated wit h Sulfasalazine may generate falsely decreased results for ALT. Anion gap [Moles/Vol] 11 mmol/L 10 - 20 [place] [address] Work Phone: AST With P-5'-P [Catalytic activity/Vol] 19 U/L 9 - 39 [place] [address] Work Phone: Bilirubin [Mass/Vol] 0.5 mg/dL 0.0 - 1.2 [facility] [place] [address] Work Phone: Calcium [Mass/Vol] 9.3 mg/dL 8.6 - 10.3 -Pul monary [place] [address] Work Phone: Chloride [Moles/Vol] 98 mmol/L 98 - 107 -Pulmonary [place] [address] Work Phone: CO2 [Moles/Vol] 32 mmol/L 21 - 32 -Pulmon brianna [place] [address] Work Phone: Creatinine [Mass/Vol] 0.75 mg/dL See Below [facility] [place] [address] Work Phone: Comment on above: Reference Range: 0.5 0 - 1.30 Glucose [Mass/Vol] 130 mg/dL above high threshold 74 - 99 [facility] [place] [address] Work Phone: Potassium [Moles/Vol] 3.6 mmol/L 3.5 - 5.3 [facility] 170 Work Phone: Protein [Mass/Vol] 7.3 g/dL 6.4 - 8.2 [facility] 170 Work Phone: Sodium [Moles/Vol] 137 mmol/L 136 - 145 [facility] 170 Work Phone: Urea nitrogen [Mass/Vol] 20 mg/dL 6 - 23 [facility] 170 Work Phone: No Panel Informationon 12-08 89 {mL/min/1.73m2} >90 [place] [address] Work Phone: Comment on above: CALCULATIONS OF CHECO MATED GFR ARE PERFORMED USING THE 2020 CKD-EPI STUDY REFIT EQUATION WITHOUT THE RACE VARIABLE FOR THE IDMS-TRACEABLE CREATININE METHODS.[email or web address].[email or web address]/content//ASN. [email or web address] 63 pg/mL 0 - 99 [facility] 170 Work Phone: Comment on above: . <100 pg/mL - Heart failure [id number] pg/mL - Intermediate probability of acute heart. failure exacerbation. Correlate with clinical. context and patient history. >=300 pg/mL - Heart Failure likely. Correlate with clinical. context and patient history.BNP testing is performed using different testing methodology at [facility] than at other [facility] hospitals. Direct result comparisons should only be made within the same method. Radiologyon 12-08-2021 XR Chest 2 Views Please click on the link to view the study images [place] [address] Work Phone: Tobacco Screening.on 022 Fall risk assessment a) No falls within the last year [place] [address] Work Phone: Tobacco use status CPHS b) No MP-Pulmonary Medicine-Patel zarate [facility] 170 Work Phone: Consult (Pulmonary Medicine) on [...] sleep study performed in the past at [facility] with use of a CPAP [...] of acute appendicitis and underwent appendectomy at [facility] in 07/2021 which was complicated by intra-abdominal infection leading to drainage at [facility] on August 25, 2021. . 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 During that hospitalization, he had a CT chest which shows bibasilar atelectasis associated with bilateral pleural effusion, right more than left. He was also found to be hypoxic at night over there leading to sleep study at [facility] which showed obstructive sleep apnea, [...] sleep study records and discharge summary from [facility]. We will get his CT chest uploaded on PACS Follow up in pulmonary clinic in 3 weeks Patient understands the importance of follow up with PMD for health care maintenance and general medical conditions. 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 Normal [place] Tobacco Screening.on 022 Adult depression screening assessment No [facility] [employer] Phone: Fall risk assessment a) No falls within the last year [facility] [employer] Phone: Tobacco use status CP b) No [facility] [employer] Phone: Tobacco Screening. Large [facility] [employer] Phone: Progress Noteson 09-21-2021 Membership Solicitor Authentication Interface Message Text Patient was identified by name and date of . Patient at risk for falls:No Falls Risk protocol implemented: N/A Normal [employer] Telephone Encounteron 2021 Membership Solicitor Authentication Interface Message Text Called and spoke to regarding patient's drainage. stated that drainage is negligible and immeasurable above the amount she instills for a flush. She stated she will track drainage for upcoming appointment. 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.01) (I25.10) Chronic constipation (564.00) (K59.09) Orders Abscess, abdomen General Surgery Follow-Up Outpatient [facility] for drain Status: Hold For - Scheduling,Retrospect cass Authorization Requested for: [id number] B12 deficiency, HTN (hypertension), Hypercholesteremia Vitamin B12, Serum; Status:Active - Retrospective Authorization; Requested for:[id number]; COPD (chronic obstructive pulmonary disease), Obstructive sleep apnea, adult Pulmonary Medicine Referral Evaluation and Treatment Evaluate AND Treat Status: Hold For - Scheduling,Retrospect cass Authorization Requested for: [id number] HTN (hypertension), Hypercholesteremia Albumin, Urine Spot; Status:Active [...] to establish care. Previous Dr. Seaman in [facility] last seen 08/2021. He was recently released [...] no palpitatio (more content not included)... Normal [place] Tobacco Screening.on 022 Adult depression screening assessment No [facility] [employer] Phone: Fall risk assessment a) No falls within the last year [facility] [employer] Phone: Tobacco use status CPHS b) No [facility] [employer] Phone: Tobacco Screening. Pediatric [facility] [employer] Phone: Telephone Encounteron 2021 Membership Solicitor Authentication Interface Message Text Notified [facility]i from [facility] Dr. Guerrero is willing to be the attending MD for home care. Normal [facility] Telephone Encounteron 2021 Membership Solicitor Authentication Interface Message Text Situation: Speak with Provider, Question about following provider Background: Rubi from [facility] asked if Dr. Guerrero would follow patient for homecare. Rubi stated that Dr. Bhat would follow but she is a fellow and they need her attending as well. Assessment: n/a Recommendation: Please call Rubi at [phone] Normal [facility] Discharge Planning Noteon Membership Solicitor Authentication Interface Message Text CM called and [...] once she has accepting facilities. NEAL Recinos, foster care worker -Care Coordination Department Normal [employer] Consultson 08-28-2021 Membership Solicitor Authentication Interface Message Text Attestation signed by [...] file. Chief Complaint/Reason for Consult: Antibiotic abstract [place]/Hospital Course: This is a 86 year old year old male with history of HTN who presented to [facility] 08/25 as a transfer from [facility] for intra-abdominal fluid collection. Patient was recently hospitalized at [facility] 07/28-08/17 for abdominal pain s/p appendectomy c/b ileus. He was discharged home feeling well. He then developed dizziness and presyncope. He went back to [facility] ED and then sent him home. Since he continued to feel unwell, he then went to [facility] ED. They performed a CT abdomen/pelvis that showed a fluid collection in the right paracolic gutter. He was transferred to [facility] [place] and IR placed a drain in the [...] * Influenza, Injectable, MDCK, Preservative Free, Quadrivalent (JVS=686) 05/07/2020, 06/23/2021 * Moderna SARS-COV-2 (COVID-19) vaccine, mRNA, spike protein, LNP, preservative free, 100 mcg or 50 mcg dose (PYR=101) 09/02/2020, 09/30/2020, 06/09/2021 REVIEW OF SYSTEMS: 10 point ROS performed which is otherwise negative unless noted in HPI. PHYSICAL EXAMINATION: Vital sign ranges over the past 24 hours (retrieved 08/28/2021 at 11:02 AM): Tmax (24 hours): 98.6 ???F (37 ???C) Pulse Av.8 Min: 67 Max: 95 Systolic (24hrs), Av , Min:100 , Max:156 Diastolic (24hrs (more content not included)... Normal [employer] Progress Noteson 08-28-2021 Membership Solicitor Authentication Interface Message Text CASE MANAGEMENT CM received VM from [facility] at [phone], intake at [facility] regarding name of patient's PCP. CM checked charted, no name was available. CM contacted patient's who provided physician name of Pilo Baez out of [place], [place]. Patient has appointment with Dr. Baez 09/09/21. Patient's also stated [facility] contacted her and she provided the same PCP information for them as well. CM called Christina at [facility], however, she was not available at this time, CM left a VM pertaining to the new PCP information. Tavo DE JESUS, RN Inpatient Control Panel Operator [employer] Operator: [phone] ([phone]) Normal [facility] Membership Solicitor Authentication Interface Message Text CASE MANAGEMENT CM aware from prior CM's note, patient needs home PT/OT arranged. Patient's spouse accepted [facility]. This CM contacted [facility] health service at [phone] or [phone]. CM spoke to [facility] at intake and faxed necessary notes to [phone]. [facility] to contact this CM tomorrow morning. Tavo DE JESUS, RN Inpatient Control Panel Operator [employer] Operator: [phone] ([phone]) Normal The [employer] Membership Solicitor Authentication Interface Message Text [employer] Pulmonary, Critical Care, AND Sleep Medicine [...] Oral 85 24 98 % CPAP 1 08/27/212329 -- -- -- 67 23 97 % CPAP 1 08/27/21 2300 124/75 -- -- 73 23 96 % -- -- 08/27/21 2200 156/78 -- -- 81 22 100 % -- -- 08/27/212121 -- -- -- 78 27 100 % CPAP 1 08/27/21 2100 132/74 -- -- 75 29 100 % -- -- 08/27/211999 135/69 98 ???F (36.7 ???C) Axillary 72 [...] Bili Alk Phos ALT AST Amylase Lipase 08/27/21 0418 4.9 1.6 0.20 0.7 159 57 27 [...] Pulmonary, Critical Care, AND Sleep Medicine [facility] PIN [id number] Normal [facility] BASIC METABOLIC PANELon 08-02 Anion gap [Moles/Vol] 11 mmol/L Normal 10-20 [facility] Comment on above: Performed By: #### L IP, MG, HEPATIC, CH8 #### [facility] [address] [place] [address], Calcium [Mass/Vol] 7.6 mg/dL Low 8.4-10.4 [facility] Comment on above: Performed By: #### L IP, MG, HEPATIC, CH8 #### [facility] [address] [place] [address], Chloride [Moles/Vol] 94 mmol/L Low 97-111 [facility] Comment on above: Performed By: #### L IP, MG, HEPATIC, CH8 #### [facility] [address] [place] [address], CO2 [Moles/Vol] 33 mmol/L High 21-30 [facility] Comment on above: Performed By: #### L IP, MG, HEPATIC, CH8 #### [facility] [address] [place] [address], Creatinine [Mass/Vol] 1.16 mg/dL Normal 0.80-1.30 [facility] Comment on above: Performed By: #### L IP, MG, HEPATIC, CH8 #### [facility] [address] [place] [address], ESTIMATED GFR (CKD-EPI) 58 mL/min/1.73sqm Low >=60 [facility] Comment on above: Performed By: #### L IP, MG, HEPATIC, CH8 #### [facility] [address] [place] [address], Glucose [Mass/Vol] 149 mg/dL High 80-116 [facility] Comment on above: Performed By: #### L IP, MG, HEPATIC, CH8 #### [facility] [address] [place] [address], Potassium [Moles/Vol] 4.0 mmol/L Normal 3.3-5.3 [facility] Comment on above: Performed By: #### L IP, MG, HEPATIC, CH8 #### [facility] [address] [place] [address], Sodium [Moles/Vol] 134 mmol/L Low 135-148 [facility] Comment on above: Performed By: #### L IP, MG, HEPATIC, CH8 #### [facility] [address] [place] [address], Urea nitrogen [Mass/Vol] 25 mg/dL High 8-22 [facility] Comment on above: Performed By: #### L IP, MG, HEPATIC, CH8 #### [facility] [address] [place] [address], CBC WITH DIFFERENTIALon 01-2 Basophils (Bld) [#/Vol] 0.08 10*3/uL Normal 0.00-0.20 [facility] Comment on above: Performed By: #### C BC #### [facility] [address], [place], Basophils/100 WBC (Bld) 0.9 % Normal <=1.9 [facility] Comment on above: Performed By: #### C BC #### [facility] [address], [place], Eosinophils (Bld) [#/Vol] 0.25 10*3/uL Normal 0.00-0.70 [facility] Comment on above: Performed By: #### C BC #### [facility] [address], [place], Eosinophils/100 WBC (Bld) 2.7 % Normal 0.1-4.0 [facility] Comment on above: Performed By: #### C BC #### [facility] [address], [place], Erythrocyte distribution width (RBC) [Ratio] 13.8 % Normal 11.5-14.5 [facility] Comment on above: Performed By: #### C BC #### [facility] [address], [place], Hematocrit (Bld) [Volume fraction] 27.5 % Low 41.0-53.0 [facility] Comment on above: Performed By: #### C BC #### [facility] [address], [place], Hemoglobin (Bld) [Mass/Vol] 9.2 g/dL Low 13.9-16.3 [facility] Comment on above: Performed By: #### C BC #### [facility] [address], [place], Lymphocytes (Bld) [#/Vol] 0.92 10*3/uL Low 1.00-4.80 [facility] Comment on above: Performed By: #### C BC #### [facility] [address], [place], Lymphocytes/100 WBC (Bld) 10.1 % Low 24.0-44.0 [facility] Comment on above: Performed By: #### C BC #### [facility] [address] [place] [address], MCH (RBC) [Entitic mass] 29.4 pg Normal 26.0-34.0 [facility] Comment on above: Performed By: #### C BC #### [facility] [address] [place] [address], MCHC (RBC) [Mass/Vol] 33.3 g/dL Normal 32.0-35.9 [facility] Comment on above: Performed By: #### C BC #### [facility] [address] [place] [address], MCV (RBC) [Entitic vol] 88 fL Normal 80-100 [facility] Comment on above: Performed By: #### C BC #### [facility] [address] [place] [address], MONOCYTE DISTRIBUTION WIDTH Normal [facility] Comment on above: Performed By: #### C BC #### [facility] [address] [place] [address], Monocytes (Bld) [#/Vol] 0.87 10*3/uL Normal 0.20-1.00 [facility] Comment on above: Performed By: #### C BC #### [facility] [address] [place] [address], Monocytes/100 WBC (Bld) 9.5 % Normal 2.0-11.0 [facility] Comment on above: Performed By: #### C BC #### [facility] [address] [place] [address], Neutrophils (Bld) [#/Vol] 7.00 10*3/uL Normal 1.50-8.00 [facility] Comment on above: Performed By: #### C BC #### [facility] [address] [place] [address], Neutrophils/100 WBC (Bld) 76.7 % High 31.0-76.0 [facility] Comment on above: Performed By: #### C BC #### [facility] [address] [place] [address], Platelet mean volume (Bld) [Entitic vol] 7.3 fL Low 7.5-11.2 [facility] Comment on above: Performed By: #### C BC #### [facility] [address], [place], Platelets (Bld) [#/Vol] 255 10*3/uL Normal 150-400 [facility] Comment on above: Performed By: #### C BC #### [facility] [address] [place] [address], RBC (Bld) [#/Vol] 3.11 10*6/uL Low 4.50-5.90 [facility] Comment on above: Performed By: #### C BC #### [facility] [address] [place] [address], WBC (Bld) [#/Vol] 9.1 10*3/uL Normal 4.5-11.5 [facility] Comment on above: Performed By: #### C BC #### [facility] [address] [place] [address], CERULOPLASMINon 08-27-2021 CERU 23 mg/dL Normal 20-52 [facility] Comment on above: Performed By: #### C BC #### [facility] [address] [place] [address], Care Plan Noteon 08-27-2021 Membership Solicitor Authentication Interface Message Text Problem: Infection: Goal: [...] Note: Continuous pulse ox monitoring. Normal [employer] FERRITINon 08-27-2021 ERIC 416.1 ng/mL High 11.5-300.0 [employer] Comment on above: Performed By: #### C BC #### [facility] [address] [place] [address], FULL LIPID PROFILEon 022 Cholesterol [Mass/Vol] 60 mg/dL Normal <200 [employer] Comment on above: Performed By: #### L IP, MG, HEPATIC, CH8 #### [facility] [address], [place], Cholesterol in LDL [Mass/Vol] 38 mg/dL Normal <111 [employer] Comment on above: Performed By: #### L IP, MG, HEPATIC, CH8 #### [facility] [address] [place] [address], Cholesterol.total/C holesterol in HDL [Mass ratio] 3.53 {ratio} Normal <5.00 [facility] Comment on above: Performed By: #### L IP, MG, HEPATIC, CH8 #### [facility] [address] [place] [address], HDL CHOL 17 mg/dL Low >[address] [facility] Comment on above: Performed By: #### L IP, MG, HEPATIC, CH8 #### [facility] [address] [place] [address], LDL/HDL 2.24 Normal <3.57 [facility] Comment on above: Performed By: #### L IP, MG, HEPATIC, CH8 #### [facility] [address] [place] [address], NON-HDL CHOLESTEROL 43 mg/dL Normal <[address] [facility] Comment on above: Performed By: #### L IP, MG, HEPATIC, CH8 #### [facility] [address] [place] [address], Triglyceride [Mass/Vol] 42 mg/dL Normal <151 [facility] Comment on above: Performed By: #### L IP, MG, HEPATIC, CH8 #### [facility] [address] [place] [address], HEMOGLOBIN A1Con 08-27-2021 Glucose [Mass/Vol] 146 mg/dL Normal [facility] Comment on above: Order Comment: HbA1c of 5.7-6.4% have increased risk for diabetes and CV(Source :ADA 2014 Standard of Medical Care in Diabetes) Performed By: #### L IP, MG, HEPATIC, CH8 #### [facility] [address] [place] [address], HbA1c (Bld) [Mass fraction] 6.7 % High 4.0-5.[address] [facility] Comment on above: Order Comment: HbA1c of 5.7-6.4% have increased risk for diabetes and CV(Source :ADA 2014 Standard of Medical Care in Diabetes) Performed By: #### L IP, MG, HEPATIC, CH8 #### [facility] [address] [place] [address], HEPATIC FUNCTION PANELon Albumin [Mass/Vol] 1.6 g/dL Low 3.4-5.1 [facility] Comment on above: Performed By: #### L IP, MG, HEPATIC, CH8 #### [facility] [address] [place] [address], ALK 159 IU/L Normal 40-200 [facility] Comment on above: Performed By: #### L IP, MG, HEPATIC, CH8 #### [facility] [address] [place] [address], ALT [Catalytic activity/Vol] 57 U/L High 7-40 [facility] Comment on above: Performed By: #### L IP, MG, HEPATIC, CH8 #### [facility] [address] [place] [address], AST [Catalytic activity/Vol] 27 U/L Normal 7-40 [facility] Comment on above: Performed By: #### L IP, MG, HEPATIC, CH8 #### [facility] [address] [place] [address], Bilirubin [Mass/Vol] 0.7 mg/dL Normal 0.1-1.5 [facility] Comment on above: Performed By: #### L IP, MG, HEPATIC, CH8 #### [facility] [address] [place] [address], Bilirubin.direct [Mass/Vol] 0.20 mg/dL Normal 0.10-0.30 [facility] Comment on above: Performed By: #### L IP, MG, HEPATIC, CH8 #### [facility] [address] [place] [address], Protein [Mass/Vol] 4.9 g/dL Low 5.7-8.1 [facility] Comment on above: Performed By: #### L IP, MG, HEPATIC, CH8 #### [facility] [address] [place] [address], HEPATITIS B SURFACE ANTIBODY on 08-27-2021 ANTI-HBS < 3.1 Normal [facility] Comment on above: Order Comment: Nonre active: Samples < 7.5 mIU/mL Reactive: Samples >/= 10.0 mIU/mL The accepted criteria for immunity to HBV is anti-HBs activity >/= 10 mIU/mL, as defined by the WHO International Reference Preparation. Performed By: #### A NTI-HBS, HBSAG #### [facility] [address] [place] [address], HEPATITIS B SURFACE ANTIGENo n 08-27-2021 HBSAG Non-Reactive Normal Non-Reactive [facility] Comment on above: Performed By: #### A NTI-HBS, HBSAG #### [facility] [address] [place] [address], HEPATITIS C ANTIBODYon 08-27 HCV Non-Reactive Normal Nonreactive [facility] Comment on above: Performed By: #### C BC #### [facility] [address] [place] [address], IRON AND TIBCon 08-27-2021 % SAT CORRECT PRD 56 % High 20-55 [facility] Comment on above: Performed By: #### C BC #### [facility] [address] [place] [address], FE CORRECT PRD 72 ug/dL Normal 30-125 [facility] Comment on above: Performed By: #### C BC #### [facility] [address] [place] [address], TIBC CORRECT PRD 129 ug/mL Low 200-300 [facility] Comment on above: Performed By: #### C BC #### [facility] [address] [place] [address], TRANSFER CORRECT PRD 92 mg/dL Low 210-375 [facility] Comment on above: Performed By: #### C BC #### [facility] [address] [place] [address], MAGNESIUMon 08-27-2021 Magnesium [Mass/Vol] 1.8 mg/dL Normal 1.6-2.8 [facility] Comment on above: Performed By: #### L IP, MG, HEPATIC, CH8 #### [facility] [address] [place] [address], Progress Noteson 08-27-2021 Membership Solicitor Authentication Interface Message Text Pharmacokinetic Dosing Service [...] clearance: 55.18 mL/min Culture(s): PENDING Melany Chavarria [facility] - Department of Pharmacy Services Normal [employer] Membership Solicitor Authentication Interface Message Text SW ICU Note: SW made aware by , pt will need home going IV ABX. CM and CSI aware and will follow for DC planning. Bailey Casillas [facility] Care Coordination Department Normal [employer] Membership Solicitor Authentication Interface Message Text [facility] Services provided for: Patient and Family Services initiated by: Staff Data Management Reason for services: Initial visit Assessment/Narrative: Data Management knocked and entered patient's room to introduce self and share availability of spiritual care. Data Management found patient supine in bed, awake and alert, visiting with his . Patient and spoke briefly with this line leader about their [id number] marriage, their children, and their grandchildren as well as the kena they have experienced throughout their life together. Interventions: Introduction of service Outcome: Patient and spouse aware of line leader availability Plan of Care: On-going visits 1-2x/week while patient is on MICU. Diana Smart MDiv Staff Data Management, (she/her/hers) Ext: [phone] Pager: [phone] Normal [employer] Membership Solicitor Authentication Interface Message Text [facility] [employer] Pulmonary, Critical Care, AND Sleep Medicine MICU [...] Critical Care time. Subjective: Inpatient PSG on OR last night. Denies complaints today. Objective: Allergy: [...] -- 71 25 100 % -- -- 08/26/211999 99/64 97.6 ???F (36.4 ???C) Oral 66 [...] Cr Ca Mg PO4 08/27/21417 1.8 08/27/21 0418 134 4.0 94 33 [...] 1612 (more content not included)... Normal [employer] Membership Solicitor Authentication Interface Message Text [facility] DIVISION OF ACUTE CARE SURGERY --------- GENERAL INFORMATION -------- EMERGENCY GENERAL SURGERY NOTE Patient Name: Fidel Palomino Admission Date: 08/25/2021 Patient seen and examined on 08/27/2021 ------- INTERVAL HISTORY/EVENTS ----- Background Narrative: Fidel Palomino is a 86 year old male with a h/o HTN, HLD, BPH, remote left inguinal hernia repair with mesh, s/p appendectomy 07/28/21 (done at [facility]) c/b ileus who presented to [facility] [...] years. ??? Hospital Course/Procedures: 08/25/2021: Admitted to [facility], IR drain placed. Events in last [...] in 2 weeks with his surgeon at [facility] or at [facility] if need be Remaining of care per MICU team Patient seen with and assessment/plan discussed with Dr. Garcia. Denise Lincoln MD, MPH General Surgery PGY-1 [facility] Consult: [phone] [facility] Floor: [phone] Plan not finalized until signed by attending, [...] MG, HEPATIC, CH8 #### [facility] [address] [place] [address], BASIC METABOLIC PANELon 08-02 Anion gap [Moles/Vol] 20 mmol/L Normal 10-20 [facility] Comment on above: Performed By: #### L IP, MG, HEPATIC, CH8 #### [facility] [address] [place] [address], Calcium [Mass/Vol] 8.0 mg/dL Low 8.4-10.4 [facility] Comment on above: Performed By: #### L IP, MG, HEPATIC, CH8 #### [facility] [address] [place] [address], Chloride [Moles/Vol] 89 mmol/L Low 97-111 [facility] Comment on above: Performed By: #### L IP, MG, HEPATIC, CH8 #### [facility] [address] [place] [address], CO2 [Moles/Vol] 32 mmol/L High 21-30 [facility] Comment on above: Performed By: #### L IP, MG, HEPATIC, CH8 #### [facility] [address] [place] [address], Creatinine [Mass/Vol] 1.40 mg/dL High 0.80-1.30 [facility] Comment on above: Performed By: #### L IP, MG, HEPATIC, CH8 #### [facility] [address] [place] [address], ESTIMATED GFR (CKD-EPI) 46 mL/min/1.73sqm Low >=60 [facility] Comment on above: Performed By: #### L IP, MG, HEPATIC, CH8 #### [facility] [address] [place] [address], Glucose [Mass/Vol] 127 mg/dL High 80-116 [facility] Comment on above: Performed By: #### L IP, MG, HEPATIC, CH8 #### [facility] [address] [place] [address], Potassium [Moles/Vol] 3.8 mmol/L Normal 3.3-5.3 [facility] Comment on above: Performed By: #### L IP, MG, HEPATIC, CH8 #### [facility] [address] [place] [address], Sodium [Moles/Vol] 137 mmol/L Normal 135-148 [facility] Comment on above: Performed By: #### L IP, MG, HEPATIC, CH8 #### [facility] [address] [place] [address], Urea nitrogen [Mass/Vol] 26 mg/dL High 8-22 [facility] Comment on above: Performed By: #### L IP, MG, HEPATIC, CH8 #### [facility] [address] [place] [address], CBC WITH DIFFERENTIALon 08-02 Basophils (Bld) [#/Vol] 0.04 10*3/uL Normal 0.00-0.20 [facility] Comment on above: Performed By: #### C BCDSAT ####[facility] [id number] [place], [place], Basophils/100 WBC (Bld) 0.4 % Normal <=1.9 [facility] Comment on above: Performed By: #### C BCDSAT ####[facility] [id number] [place] [address], Eosinophils (Bld) [#/Vol] 0.17 10*3/uL Normal 0.00-0.70 [facility] Comment on above: Performed By: #### C BCDSAT ####[facility] [id number] [place] [address], Eosinophils/100 WBC (Bld) 1.5 % Normal 0.1-4.0 [facility] Comment on above: Performed By: #### C BCDSAT ####[facility] [id number] [place], [place], Erythrocyte distribution width (RBC) [Ratio] 13.7 % Normal 11.5-14.5 [facility] Comment on above: Performed By: #### C BCDSAT ####[facility] [id number] [place], Hematocrit (Bld) [Volume fraction] 27.3 % Low 41.0-53.0 [facility] Comment on above: Performed By: #### C BCDSAT ####[facility] [id number] [place], Hemoglobin (Bld) [Mass/Vol] 8.9 g/dL Low 13.9-16.3 [facility] Comment on above: Performed By: #### C BCDSAT ####[facility] [id number] [place], Lymphocytes (Bld) [#/Vol] 0.91 10*3/uL Low 1.00-4.80 [facility] Comment on above: Performed By: #### C BCDSAT ####[facility] [id number] [place], Lymphocytes/100 WBC (Bld) 8.0 % Low 24.0-44.0 [facility] Comment on above: Performed By: #### C BCDSAT ####[facility] [id number] [place], MCH (RBC) [Entitic mass] 29.1 pg Normal 26.0-34.0 [facility] Comment on above: Performed By: #### C BCDSAT ####[facility] [id number] [place], MCHC (RBC) [Mass/Vol] 32.5 g/dL Normal 32.0-35.9 [facility] Comment on above: Performed By: #### C BCDSAT ####[facility] [id number] [place], MCV (RBC) [Entitic vol] 90 fL Normal 80-100 [facility] Comment on above: Performed By: #### C BCDSAT ####[facility] [id number] [place], MONOCYTE DISTRIBUTION WIDTH Normal [facility] Comment on above: Performed By: #### C BCDSAT ####[facility] [id number] [place], Monocytes (Bld) [#/Vol] 1.03 10*3/uL High 0.20-1.00 [facility] Comment on above: Performed By: #### C BCDSAT ####[facility] [id number] [place], Monocytes/100 WBC (Bld) 9.0 % Normal 2.0-11.0 [facility] Comment on above: Performed By: #### C BCDSAT ####[facility] [id number] [place], Neutrophils (Bld) [#/Vol] 9.32 10*3/uL High 1.50-8.00 [facility] Comment on above: Performed By: #### C BCDSAT ####[facility] [id number] [place], Neutrophils/100 WBC (Bld) 81.2 % High 31.0-76.0 [facility] Comment on above: Performed By: #### C BCDSAT ####[facility] [id number] [place], Platelet mean volume (Bld) [Entitic vol] 7.4 fL Low 7.5-11.2 [facility] Comment on above: Performed By: #### C BCDSAT ####[facility] [id number] [place], Platelets (Bld) [#/Vol] 225 10*3/uL Normal 150-400 [facility] Comment on above: Performed By: #### C BCDSAT ####[facility] [id number] [place], RBC (Bld) [#/Vol] 3.05 10*6/uL Low 4.50-5.90 [facility] Comment on above: Performed By: #### C BCDSAT ####[facility] [id number] [place] [address], WBC (Bld) [#/Vol] 11.5 10*3/uL Normal 4.5-11.5 [facility] Comment on above: Performed By: #### C BCDSAT ####[facility] [id number] [place], CLOSTRIDIUM DIFFICILEon 08-02 CLOSTRIDIUM DIFFICILE Negative Normal Negative The [facility] Comment on above: Order Comment: Resul ts obtained by using a real-time PCR based qualitative in vitro diagnostic test for the direct detection of the C. difficile toxin A gene (tcdA) and toxin B gene (tcdB) targets in stool specimens.Results should be interpreted in conjunction with information from the patient clinical evaluation and other diagnostic testing Performed By: #### C BC #### [facility] [address] [place] [address], Care Plan Noteon 08-26-2021 Membership Solicitor Authentication Interface Message Text Problem: Infection: Goal: [...] [place]. No complaints of SOB. Normal [employer] HEPATIC FUNCTION PANELon Albumin [Mass/Vol] 1.5 g/dL Low 3.4-5.1 [employer] Comment on above: Performed By: #### L IP, MG, HEPATIC, CH8 #### [facility] [address] [place] [address], ALK 173 IU/L Normal 40-200 [facility] [employer] Comment on above: Performed By: #### L IP, MG, HEPATIC, CH8 #### [facility] [address] [place] [address], ALT [Catalytic activity/Vol] 77 U/L High 7-40 [facility] [employer] Comment on above: Performed By: #### L IP, MG, HEPATIC, CH8 #### [facility] [address] [place] [address], AST [Catalytic activity/Vol] 39 U/L Normal -40 [facility] Comment on above: Performed By: #### L IP, MG, HEPATIC, CH8 #### [facility] [address] [place] [address], Bilirubin [Mass/Vol] 0.6 mg/dL Normal 0.1-1.5 [facility] Comment on above: Performed By: #### L IP, MG, HEPATIC, CH8 #### [facility] [address] [place], [place], Bilirubin.direct [Mass/Vol] 0.20 mg/dL Normal 0.10-0.30 [facility] Comment on above: Performed By: #### L IP, MG, HEPATIC, CH8 #### [facility] [address] [place] [address], Protein [Mass/Vol] 4.6 g/dL Low 5.7-8.1 [facility] Comment on above: Performed By: #### L IP, MG, HEPATIC, CH8 #### [facility] [address] [place] [address], MAGNESIUMon 08-26-2021 Magnesium [Mass/Vol] 1.8 mg/dL Normal 1.6-2.8 [facility] Comment on above: Performed By: #### L IP, MG, HEPATIC, CH8 #### [facility] [address] [place] [address], PHOSPHORUSon 08-26-2021 Phosphate [Mass/Vol] 4.7 mg/dL High 2.3-4.2 [facility] Comment on above: Performed By: #### L IP, MG, HEPATIC, CH8 #### [facility] [address] [place] [address], Procedureson 08-26-2021 Membership Solicitor Authentication Interface Message Text Transthoracic Echocardiographic Report Name: GEORGETTE LIANG Interpreting HERLINDA JACQUES MD Physician: : [id number] Referring VERONICA ABEL MD Physician: Age: 86 [employer] Travel Administrator: ILDA PATEL Exam Date: 08/26/2021 Fellow: 09:22 [...] Doctor's order(s) verified. Patient's preferred language is Armenian . Verbal consent for left heart echo [...] physician) on 08/26/2021 11:16 AM Normal [employer] Progress Noteson 08-26-2021 Membership Solicitor Authentication Interface Message Text Pharmacokinetic Dosing Service [...] 1.30 mg/dL Final No results found for: Cole results found for: ROBLESR Serum creatinine: 1.4 mg/dL (H) 08/26/21 0431 Estimated creatinine clearance: 45.78 mL/min (A) Culture(s): PENDING. DUSTY SÁNCHEZ [facility] - Department of Pharmacy Services Normal [employer] Membership Solicitor Authentication Interface Message Text [employer] Pulmonary, Critical Care, AND Sleep Medicine MICU [...] hernia (s/p mesh), s/p appendectomy 07/28/21 at [facility] complicated by ileus presented to OSH [...] -- 81 25 96 % -- -- 08/25/21 2350 107/62 -- -- 71 23 97 % [...] Neut (more content not included)... Normal [employer] Membership Solicitor Authentication Interface Message Text [facility] DIVISION OF ACUTE CARE SURGERY --------- GENERAL INFORMATION -------- EMERGENCY GENERAL SURGERY NOTE Patient Name: Fidel Palomino Admission Date: 08/25/2021 Patient seen and examined on 08/26/2021 ------- INTERVAL HISTORY/EVENTS ----- Background Narrative: Fidel Palomino is a 86 year old male with a h/o HTN, HLD, BPH, remote left inguinal hernia repair with mesh, s/p appendectomy 07/28/21 (done at [facility]) c/b ileus who presented to [facility] ED for lightheadedness and dizziness. He was [...] years. ??? Hospital Course/Procedures: 08/25/2021: Admitted to [facility], IR drain placed. Events in last 24 hours: Admitted to [facility] and IR drain placed yesterday 08/25/2021. [...] CHEST, ABDOMEN AND PELVIS W/O CONTRAST (OS[facility]: [facility]) - 08/24/2021 1. Moderate right-sided pleural effusion. [...] impaction. ??? XR CHEST 1V PORTABLE (OSH: [facility]) - 08/24/2021 LOW LUNG VOLUMES WITH BIBASILAR [...] 3. (more content not included)... Normal [employer] Membership Solicitor Authentication Interface Message Text Pharmacy Renal Dosing [...] required; The recommended therapy is cefepime 2gm [id number] . Medication therapy has been updated per consult agreement. DUSTY SÁNCHEZ, [facility] Department of Pharmacy Services Normal [employer] US LIVER/GALL BLADDER/PANCRE ASon 08-26-2021 US [...] cholelithiasis is demonstrated. MACRO: None Normal [employer] ABO RH TYPEon 08-25-2021 ABO and Rh group Nom (Bld) Blood group O Rh(D) positive Normal [employer] Comment on above: Performed By: #### L IP, MG, HEPATIC, CH8 #### [facility] [address] [place] [address], [id number] AEROBIC WOUND CULTUREon 08-02 AEROBIC WOUND CULTURE C PYOG: Positive Culture Report ESCHERICHIA COLI 2+ Escherichia coli Rare growth of normal skin brett GRAM STAIN: 4+ Polymorphonuclear Leukocytes No Squamous Epithelial Cells seen Mixed polymicrobial brett seen Normal [facility] [employer] Comment on above: Order Comment: THIS IS A PRELIMINARY REPORT. Final results will follow. Results of the preliminary report may be modified as additional information becomes available. Performed By: #### C PYOG ####[facility] [id number] [place], [place] MELISSA _ ORGANISM: ESCHERICHIA COLI ANTIBIOTIC [...] + Sulfamethoxazole <= 20 S Normal [facility] Comment on above: Order Comment: THIS IS A PRELIMINARY REPORT. Final results will follow. Results of the preliminary report may be modified as additional information becomes available. Performed By: #### C PYOG ####[facility] [address] [place], [place] B TYPE NATRIURETIC PEPTIDEon 08-25-2021 Natriuretic peptide B (Bld) [Mass/Vol] 321.0 pg/mL High <100.0 [facility] Comment on above: Performed By: #### L IP, MG, HEPATIC, CH8 #### [facility] [address] [place] [address], BASIC METABOLIC PANELon 08-02 Anion gap [Moles/Vol] 17 mmol/L Normal 10-20 [facility] Comment on above: Performed By: #### L IP, MG, HEPATIC, CH8 #### [facility] [address] [place] [address], Calcium [Mass/Vol] 7.7 mg/dL Low 8.4-10.[address] [facility] Comment on above: Performed By: #### L IP, MG, HEPATIC, CH8 #### [facility] [address] [place] [address], Chloride [Moles/Vol] 90 mmol/L Low 97-[address] [facility] Comment on above: Performed By: #### L IP, MG, HEPATIC, CH8 #### [facility] [address] [place] [address], CO2 [Moles/Vol] 32 mmol/L High 21-30 [facility] Comment on above: Performed By: #### L IP, MG, HEPATIC, CH8 #### [facility] [address] [place] [address], Creatinine [Mass/Vol] 1.63 mg/dL High 0.80-1.30 [facility] Comment on above: Performed By: #### L IP, MG, HEPATIC, CH8 #### [facility] [address] [place] [address], ESTIMATED GFR (CKD-EPI) 38 mL/min/1.73sqm Low >=60 [facility] Comment on above: Performed By: #### L IP, MG, HEPATIC, CH8 #### [facility] [address] [place] [address], Glucose [Mass/Vol] 136 mg/dL High 80-116 [facility] Comment on above: Performed By: #### L IP, MG, HEPATIC, CH8 #### [facility] [address] [place] [address], Potassium [Moles/Vol] 3.7 mmol/L Normal 3.3-5.3 [facility] Comment on above: Performed By: #### L IP, MG, HEPATIC, CH8 #### [facility] [address] [place] [address], Sodium [Moles/Vol] 135 mmol/L Normal 135-148 [facility] Comment on above: Performed By: #### L IP, MG, HEPATIC, CH8 #### [facility] [address] [place] [address], Urea nitrogen [Mass/Vol] 26 mg/dL High 8-22 [facility] Comment on above: Performed By: #### L IP, MG, HEPATIC, CH8 #### [facility] [address] [place] [address], Anion gap [Moles/Vol] 15 mmol/L Normal 10-20 [facility] Comment on above: Performed By: #### L IP, MG, HEPATIC, CH8 #### [facility] [address] [place] [address], Calcium [Mass/Vol] 7.9 mg/dL Low 8.4-10.4 [facility] Comment on above: Performed By: #### L IP, MG, HEPATIC, CH8 #### [facility] [address] [place] [address], Chloride [Moles/Vol] 88 mmol/L Low 97-111 [facility] Comment on above: Performed By: #### L IP, MG, HEPATIC, CH8 #### [facility] [address] [place] [address], CO2 [Moles/Vol] 33 mmol/L High 21-30 [facility] Comment on above: Performed By: #### L IP, MG, HEPATIC, CH8 #### [facility] [address] [place] [address], Creatinine [Mass/Vol] 1.96 mg/dL High 0.80-1.30 [facility] Comment on above: Performed By: #### L IP, MG, HEPATIC, CH8 #### [facility] [address] [place] [address], ESTIMATED GFR (CKD-EPI) 30 mL/min/1.73sqm Low >=60 [facility] Comment on above: Performed By: #### L IP, MG, HEPATIC, CH8 #### [facility] [address] [place] [address], Glucose [Mass/Vol] 134 mg/dL High 80-116 [facility] Comment on above: Performed By: #### L IP, MG, HEPATIC, CH8 #### [facility] [address] [place] [address], Potassium [Moles/Vol] 3.7 mmol/L Normal 3.3-5.3 [facility] Comment on above: Performed By: #### L IP, MG, HEPATIC, CH8 #### [facility] [address] [place] [address], Sodium [Moles/Vol] 132 mmol/L Low 135-148 [facility] Comment on above: Performed By: #### L IP, MG, HEPATIC, CH8 #### [facility] [address] [place], [place], Urea nitrogen [Mass/Vol] 28 mg/dL High 8-22 [facility] Comment on above: Performed By: #### L IP, MG, HEPATIC, CH8 #### [facility] [address] [place], [place], BLOOD CULTUREon 08-25-2021 Bacteria identified Cx Nom (Bld) C BLOOD: No Growth Normal [facility] Comment on above: Performed By: #### C BC #### S [facility] [address] [place], [place], BLOOD GAS, VENOUSon 08-25-19 22 CR ABEV 7.8 mmol/L High -4.0-4.0 [facility] Comment on above: Performed By: #### C R BGV ####[facility] [id number] [place], [place], CR HCO3V 33 mmol/L High 22-28 [facility] Comment on above: Performed By: #### C R BGV ####S PATHOLOGY [id number] [place], [place], CR PHV 7.416 High 7.310-7.410 [facility] Comment on above: Performed By: #### C R BGV ####S PATHOLOGY [id number] [place], [place], CR PVCO2 52.5 mm Hg High 41.0-51.0 [facility] Comment on above: Performed By: #### C R BGV ####S PATHOLOGY [id number] [place], [place], CR PVO2 43 mm Hg High 35-40 [facility] Comment on above: Performed By: #### C R BGV ####S PATHOLOGY [id number] [place], [place], Oxygen saturation in Blood 75.6 % High 70.0-75.0 [facility] Comment on above: Performed By: #### C R BGV ####S PATHOLOGY [id number] [place], [place], CBC WITH DIFFERENTIALon 08-02 Basophils (Bld) [#/Vol] 0.03 10*3/uL Normal 0.00-0.20 [facility] Comment on above: Performed By: #### C BC #### [facility] [address] [place] [address], Basophils/100 WBC (Bld) 0.2 % Normal <=1.9 [facility] Comment on above: Performed By: #### C BC #### [facility] [address] [place] [address], Eosinophils (Bld) [#/Vol] 0.08 10*3/uL Normal 0.00-0.70 [facility] Comment on above: Performed By: #### C BC #### [facility] [address] [place] [address], Eosinophils/100 WBC (Bld) 0.4 % Normal 0.1-4.0 [facility] Comment on above: Performed By: #### C BC #### [facility] [address] [place] [address], Erythrocyte distribution width (RBC) [Ratio] 13.8 % Normal 11.5-14.5 [facility] Comment on above: Performed By: #### C BC #### [facility] [address] [place] [address], Hematocrit (Bld) [Volume fraction] 33.0 % Low 41.0-53.0 [facility] Comment on above: Performed By: #### C BC #### [facility] [address] [place] [address], Hemoglobin (Bld) [Mass/Vol] 10.6 g/dL Low 13.9-16.3 [facility] Comment on above: Performed By: #### C BC #### [facility] [address] [place] [address], Lymphocytes (Bld) [#/Vol] 0.66 10*3/uL Low 1.00-4.80 [facility] Comment on above: Performed By: #### C BC #### [facility] [address] [place] [address], Lymphocytes/100 WBC (Bld) 3.6 % Low 24.0-44.0 [facility] Comment on above: Performed By: #### C BC #### [facility] [address] [place] [address], MCH (RBC) [Entitic mass] 28.9 pg Normal 26.0-34.0 [facility] Comment on above: Performed By: #### C BC #### [facility] [address] [place] [address], MCHC (RBC) [Mass/Vol] 32.2 g/dL Normal 32.0-35.9 [facility] Comment on above: Performed By: #### C BC #### [facility] [address] [place] [address], MCV (RBC) [Entitic vol] 90 fL Normal 80-100 [facility] Comment on above: Performed By: #### C BC #### [facility] [address] [place] [address], MONOCYTE DISTRIBUTION WIDTH 21 High <=20 The [facility] Comment on above: Performed By: #### C BC #### [facility] [address] [place] [address], Monocytes (Bld) [#/Vol] 1.52 10*3/uL High 0.20-1.00 [facility] Comment on above: Performed By: #### C BC #### [facility] [address] [place] [address], Monocytes/100 WBC (Bld) 8.3 % Normal 2.0-11.0 The [facility] Comment on above: Performed By: #### C BC #### [facility] [address] [place] [address], Neutrophils (Bld) [#/Vol] 15.95 10*3/uL High 1.50-8.00 [facility] Comment on above: Performed By: #### C BC #### [facility] [address] [place] [address], Neutrophils/100 WBC (Bld) 87.5 % High 31.0-76.0 [facility] Comment on above: Performed By: #### C BC #### [facility] [address] [place] [address], Platelet mean volume (Bld) [Entitic vol] 7.7 fL Normal 7.5-11.2 [facility] Comment on above: Performed By: #### C BC #### [facility] [address] [place] [address], Platelets (Bld) [#/Vol] 267 10*3/uL Normal 150-400 [facility] Comment on above: Performed By: #### C BC #### [facility] [address] [place] [address], RBC (Bld) [#/Vol] 3.67 10*6/uL Low 4.50-5.90 [facility] Comment on above: Performed By: #### C BC #### [facility] [address] [place] [address], WBC (Bld) [#/Vol] 18.2 10*3/uL High 4.5-11.5 [facility] Comment on above: Performed By: #### C BC #### [facility] [address] [place] [address], COMPLETE BLOOD COUNTon 08-25 Erythrocyte distribution width (RBC) [Ratio] 13.5 % Normal 11.5-14.5 [facility] Comment on above: Performed By: #### C BC #### [facility] [address] [place] [address], Hematocrit (Bld) [Volume fraction] 28.8 % Low 41.0-53.0 [facility] Comment on above: Performed By: #### C BC #### [facility] [address] [place] [address], Hemoglobin (Bld) [Mass/Vol] 9.5 g/dL Low 13.9-16.3 [facility] Comment on above: Performed By: #### C BC #### [facility] [address] [place] [address], MCH (RBC) [Entitic mass] 29.5 pg Normal 26.0-34.0 [facility] Comment on above: Performed By: #### C BC #### [facility] [address] [place] [address], MCHC (RBC) [Mass/Vol] 32.9 g/dL Normal 32.0-35.9 [facility] Comment on above: Performed By: #### C BC #### [facility] [address] [place] [address], MCV (RBC) [Entitic vol] 90 fL Normal 80-100 [facility] Comment on above: Performed By: #### C BC #### [facility] [address] [place] [address], Platelet mean volume (Bld) [Entitic vol] 7.6 fL Normal 7.5-11.2 [facility] Comment on above: Performed By: #### C BC #### [facility] [address] [place] [address], Platelets (Bld) [#/Vol] 236 10*3/uL Normal 150-400 [facility] Comment on above: Performed By: #### C BC #### [facility] [address] [place], [place], RBC (Bld) [#/Vol] 3.22 10*6/uL Low 4.50-5.90 [facility] Comment on above: Performed By: #### C BC #### [facility] [address] [place] [address], WBC (Bld) [#/Vol] 16.5 10*3/uL High 4.5-11.5 [facility] Comment on above: Performed By: #### C BC #### [facility] [address] [place] [address], CTA CHEST PULMONARY EMBOLISM W/ CTAon 08-25-2021 [...] gallbladder is nondistended. MACRO: None Normal [facility] [facility] Care Plan Noteon 08-25-2021 Membership Solicitor Authentication Interface Message Text Problem: Infection: Goal: [...] [place]. Will wean as tolerated. Normal [facility] [employer] [facility] [facility] Consultson 08-25-2021 Membership Solicitor Authentication Interface Message Text DEPARTMENT OF SURGERY CONSULT - ACUTE CARE SURGERY Fidel Palomino [id number] Chief Complaint/Reason for Consultation Intraabdominal fluid collection History (HPI) Fidel Palomino is a 86 year old male with a h/o HTN, HLD, BPH, remote left inguinal hernia repair with mesh, s/p appendectomy 07/28/21 (done at [facility]) c/b ileus who presented to [facility] ED for lightheadedness and dizziness. He was [...] CT (more content not included)... Normal [facility] [employer] [facility] [facility] ED Provider Noteson 08-25-19 Membership Solicitor Authentication Interface Message Text NS for KB 86yM PMH of HTN and appendectomy 07/28/21. Transfer from [facility] due to syncope, found to have abdominal [...] to assume care of patient. Normal [facility] [employer] Interface Message Text ED RESIDENT CONTINUATION OF CARE NOTE Fidel Palomino was signed out to me at 7:18 PM Briefly, he presented to the ED for syncope, pericolic gutter abscess s/p appendectomy 07/2021 and PNA Signout note reviewed. Clinical Course: ED Course as of 08/25/211917e Aug 25, 2021 0552 Lactic Acid(!): Lactate 2.2(!) Mild lactate elevation, [...] Color Yellow Appearance Clear pH 5.5 Spec [place] <=1.005 Protein Negative Glucose Negative Ketones Negative [...] Technically successful ultrasound-guided placement of a 10 Syrian pigtail catheter into right paracolic gutter abscess. [KB] ED Course User Index [KB] Jia Jiang DO [SP] Javon Gray MD Medical Decision MakinyM PMH of HTN and appendectomy 07/28/21. Transfer from [facility] due to syncope, found to have abdominal [...] Com (more content not included)... Normal [facility] Message Text 86yM PMH of HTN and appendectomy 07/28/21. Transfer from [facility] due to syncope, found to have abdominal fluid mass, pleural effusion (4L NC now), b/l leg edema (new), PNA, and fecal impaction. Small fluid bolus ordered and patient is being evaluated by ACS. Labs pending now, ordered for azithromycin. [ ] ACS recs [ ] likely admit medicine Normal [facility] Message Text 86yM PMH of HTN and appendectomy 07/28/21. Transfer from [facility] due to syncope, found to have abdominal fluid mass, pleural effusion (4L [place] now), b/l leg edema (new), PNA, and fecal impaction. Small fluid bolus ordered and patient is being evaluated by ACS. Labs pending now, ordered for azithromycin. Normal [facility] Message Text EMERGENCY DEPARTMENT - VISIT NOTE --------- HISTORY OF PRESENT ILLNESS ----- Chief Complaint Patient presents with * Chart tx from [facility] for post-op complications, apx removed 07/28/21, having fluid build up and posisble cyst found at surgical site, possible pna found on chest xray at OSH, no BM in 5 days not needed - patient preferred language is Armenian. HPI History is provided by the patient [...] poor p.o. intake. He went to the [facility] emergency department for further evaluation where he was found to have a intra-abdominal abscess as well as bilateral pleural effusions with possible pneumonia. Because of the complex nature of his presentation, the patient was transferred to [facility] for further management. While ed route to [facility], the patient began to have substantial gas [...] nursing note reviewed. Exam conducted with a evp chief exploration officer present. Constitutional: General: He is not in [...] includ (more content not included)... Normal [facility] [facility] HEPATIC FUNCTION PANELon Albumin [Mass/Vol] 1.7 g/dL Low 3.4-5.1 [facility] Comment on above: Performed By: #### L IP, MG, HEPATIC, CH8 #### [facility] [address] [place] [address], ALK 229 IU/L High 40-200 [facility] Comment on above: Performed By: #### L IP, MG, HEPATIC, CH8 #### [facility] [address] [place] [address], ALT [Catalytic activity/Vol] 125 U/L High 7-40 [facility] Comment on above: Performed By: #### L IP, MG, HEPATIC, CH8 #### [facility] [address] [place] [address], AST [Catalytic activity/Vol] 83 U/L High 7-40 [facility] Comment on above: Performed By: #### L IP, MG, HEPATIC, CH8 #### [facility] [address] [place] [address], Bilirubin [Mass/Vol] 0.7 mg/dL Normal 0.1-1.5 [facility] Comment on above: Performed By: #### L IP, MG, HEPATIC, CH8 #### [facility] [address] [place] [address], Bilirubin.direct [Mass/Vol] 0.40 mg/dL High 0.10-0.30 [facility] Comment on above: Performed By: #### L IP, MG, HEPATIC, CH8 #### [facility] [address] [place] [address], Protein [Mass/Vol] 5.6 g/dL Low 5.7-8.1 [facility] Comment on above: Performed By: #### L IP, MG, HEPATIC, CH8 #### [facility] [address] [place] [address], LACTIC ACIDon 08-25-2021 CR LACT 1.0 mmol/L Normal 0.5-2.0 [facility] Comment on above: Performed By: #### L IP, MG, HEPATIC, CH8 #### [facility] [address] [place] [address], CR LACT 2.2 mmol/L High 0.5-2.0 [facility] Comment on above: Performed By: #### L ACT #### [facility] [address] [place] [address], LIPASEon 08-25-2021 LIP 38 IU/L Normal <128 [facility] Comment on above: Performed By: #### L IP, MG, HEPATIC, CH8 #### [facility] [address] [place] [address], MAGNESIUMon 08-25-2021 Magnesium [Mass/Vol] 1.8 mg/dL Normal 1.6-2.8 [facility] Comment on above: Performed By: #### L IP, MG, HEPATIC, CH8 #### [facility] [address] [place], [place], PROTHROMBIN TIME AND INRon 0 08-25-2021 INR Coag (PPP) [Relative time] 1.36 {INR} High 0.90-1.10 [facility] Comment on above: Performed By: #### P T ####S PATH[facility] [id number] [place], [place], PT Coag (PPP) [Time] 15.0 s High 9.7-12.9 [facility] Comment on above: Performed By: #### P T ####[facility] [id number] [place], [id number] Progress Noteson 08-25-2021 Membership Solicitor Authentication Interface Message Text Pharmacokinetic Dosing Service [...] (Unknown ideal weight.) Culture(s): PENDING Armond Cohn [facility] - Department of Pharmacy Services Normal [facility] [facility] TROPONIN Ion 08-25-2021 TROP I < 0.030 Normal <0.120 [facility] Comment on above: Result Comment: Rang [...] HEPATIC, CH8 #### [facility] [address] [place], [place], TYPE AND SCREENon 08-25-2021 ABO and Rh group Nom (Bld) Blood group O Rh(D) positive Normal [facility] Comment on above: Performed By: #### L IP, MG, HEPATIC, CH8 #### [facility] [address] [place] [address], ABO and Rh group Nom (Bld) No Previous Results Normal [facility] Comment on above: Performed By: #### L IP, MG, HEPATIC, CH8 #### [facility] [address] [place] [address], ABSC INT Negative Normal [facility] Comment on above: Performed By: #### L IP, MG, HEPATIC, CH8 #### [facility] [address] [place] [address], URINALYSISon 08-25-2021 Glucose Ql (U) Negative Normal [...] #### C BC #### [facility] [address] [place] [address], U APPEAR Clear Normal Clear [facility] [...] #### C BC #### [facility] [address] [place] [address], U BILI Negative Normal Negative [facility] Comment on above: Order Comment: A [...] 50%) Performed By: #### C BC #### [facility] [address] [place] [address], U BLOOD Negative Normal Negative [facility] Comment on above: Order Comment: A [...] 50%) Performed By: #### C BC #### [facility] [address] [place] [address], U COLOR Yellow Normal Yellow [facility] [employer] [facility] [facility] Comment on above: Order Comment: A [...] 50%) Performed By: #### C BC #### [facility] [address] [place] [address], U KETONE Negative Normal Negative [facility] [facility] [facility] Comment on above: Order Comment: A [...] 50%) Performed By: #### C BC #### [facility] [address] [place] [address], U LEUK Trace Abnormal Negative [facility] [facility] [facility] Comment on above: Order Comment: A [...] 50%) Performed By: #### C BC #### [facility] [address] [place] [address], U NITRITE Negative Normal Negative [facility] Comment on above: Order Comment: A [...] 50%) Performed By: #### C BC #### [facility] [address] [place] [address], U PH 6.0 Normal 5.0-8.0 [facility] Comment on above: Order Comment: A [...] 50%) Performed By: #### C BC #### [facility] [address] [place], [place], U PROTEIN Negative Normal Negative [facility] Comment on above: Order Comment: A [...] 50%) Performed By: #### C BC #### [facility] [address] [place], [place], U RBC 3-5 Abnormal 0-2 [facility] Comment on above: Order Comment: A [...] 50%) Performed By: #### C BC #### [facility] [address] [place], [place], U SG 1.023 Normal 1.005-1.030 [facility] Comment on above: Order Comment: A [...] 50%) Performed By: #### C BC #### [facility] [address] [place] [address], U UROBILI Negative Normal 0.1 - 1.0 [facility] Comment on above: Order Comment: A [...] 50%) Performed By: #### C BC #### [facility] [address] [place] [address], U WBC 3-5 Abnormal 0-2 [facility] Comment on above: Order Comment: A [...] 50%) Performed By: #### C BC #### [facility] [address] [place] [address], URINALYSIS,AUTO-IN OFFICEon 08-25-2021 BILIRUBIN, URINE POC Negative Normal Negative [facility] Comment on above: Order Comment: TEST PERFORMED AT:Emergency Department POC [id number] [place] [address] Performed By: #### L IP, MG, HEPATIC, CH8 #### [facility] [address] [place] [address], BLOOD, URINE POC Negative Normal Negative [facility] Comment on above: Order Comment: TEST PERFORMED AT:Emergency Department POC [id number] [place] [address] Performed By: #### L IP, MG, HEPATIC, CH8 #### [facility] [address] [place] [address], CLARITY, POC Clear Normal [facility] Comment on above: Order Comment: TEST PERFORMED AT:Emergency Department POC [id number] [place] [address] Performed By: #### L IP, MG, HEPATIC, CH8 #### [facility] [address] [place] [address], COLOR, POC Yellow Normal The [facility] Comment on above: Order Comment: TEST PERFORMED AT:Emergency Department POC [id number] [place] [address] Performed By: #### L IP, MG, HEPATIC, CH8 #### [facility] [address] [place] [address], GLUCOSE, URINE POC Negative Normal Negative The [facility] Comment on above: Order Comment: TEST PERFORMED AT:Emergency Department POC [id number] [place] [address] Performed By: #### L IP, MG, HEPATIC, CH8 #### [facility] [address] [place] [address], KETONES, URINE POC Negative Normal Negative [facility] Comment on above: Order Comment: TEST PERFORMED AT:Emergency Department POC [id number] [place] [address] Performed By: #### L IP, MG, HEPATIC, CH8 #### [facility] [address] [place] [address], LEUKOCYTES, URINE POC Negative Normal Negative [facility] Comment on above: Order Comment: TEST PERFORMED AT:Emergency Department POC [id number] [place] [address] Performed By: #### L IP, MG, HEPATIC, CH8 #### [facility] [address] [place] [address], NITRITES, URINE POC Negative Normal Negative [facility] Comment on above: Order Comment: TEST PERFORMED AT:Emergency Department POC [id number] [place] [address] Performed By: #### L IP, MG, HEPATIC, CH8 #### [facility] [address] [place] [address], PH, URINE POC 5.5 Normal 5.0-8.[address] [facility] Comment on above: Order Comment: TEST PERFORMED AT:Emergency Department POC [id number] [place] [address] Performed By: #### L IP, MG, HEPATIC, CH8 #### [facility] [address] [place] [address], PROTEIN, URINE POC Negative Normal Negative [facility] Comment on above: Order Comment: TEST PERFORMED AT:Emergency Department POC [id number] [place] [id number] Performed By: #### L IP, MG, HEPATIC, CH8 #### [facility] [address] [place] [address], SPECIFIC GRAVITY, POC <=1.005 Normal 1.005 - 1.[address] [facility] Comment on above: Order Comment: TEST PERFORMED AT:Emergency Department POC [id number] [place] [address] Performed By: #### L IP, MG, HEPATIC, CH8 #### [facility] [address] [place] [address], UROBILINOGEN, URINE POC 0.2 Normal 0.2 - 1.[address] [facility] Comment on above: Order Comment: TEST PERFORMED AT:Emergency Department POC [id number] [place] [address] Performed By: #### L IP, MG, HEPATIC, CH8 #### [facility] [address] [place] [address], CULTURE URINEon 08-24-2021 CULTURE URINE Isolate 1 [...] Trimethoprim/Sulfamet hoxazole <=20 S F Normal [facility] Comment on above: Performed By: #### H STROPN #### [facility] [address] [place] [address] Dr. Uziel Reid BNPon 08-22-2021 Natriuretic peptide B (Bld) [Mass/Vol] 700.0 pg/mL Normal <=1,800.0 [facility] Comment on above: Performed By: #### H STROPN #### [facility] [address] [place] [address] Dr. Uziel Reid CBC AUTO DIFFon 08-22-2021 BASO # 0.0 103/ul Normal 0.0-0.1 [facility] Comment on above: Performed By: #### C BC #### [facility] [address] [place] [address] Dr. Uziel Reid Basophils/100 WBC (Bld) 0.3 % Normal 0.2-2.0 [facility] Comment on above: Performed By: #### C BC #### [facility] [address] [place] [address] Dr. Uziel Reid EO # 0.1 103/ul Normal 0.0-0.7 [facility] Comment on above: Performed By: #### C BC #### [facility] [address] [place] [address] Dr. Uziel Reid Eosinophils/100 WBC (Bld) 0.7 % Critically low 0.9-7.0 [facility] Comment on above: Performed By: #### C BC #### [facility] [address] [place] [address] Dr. Uziel Reid Erythrocyte distribution width (RBC) [Ratio] 13.3 % Normal 11.0-15.0 [facility] Comment on above: Performed By: #### C BC #### [facility] [address] [address] [address] Uziel Reid Hematocrit (Bld) [Volume fraction] 31.4 % Critically low 42.0-54.0 [facility] Comment on above: Performed By: #### C BC #### [facility] [address] [place] [address] Dr. Uziel Reid Hemoglobin (Bld) [Mass/Vol] 10.1 g/dL Critically low 14.0-18.0 [facility] Comment on above: Performed By: #### C BC #### [facility] [address] [place] [address] Dr. Uziel Reid IG # 0.10 10e3/ul Critically high 0.00-0.03 [facility] Comment on above: Performed By: #### C BC #### [facility] [address] [place] [address] Dr. Uziel Reid IG % 0.7 % Critically high 0.0-0.5 [facility] Comment on above: Performed By: #### C BC #### [facility] [address] [place] [address] Dr. Uziel Reid LYMPH # 0.9 103/ul Critically low 1.2-3.[address] [facility] Comment on above: Performed By: #### C BC #### [facility] [address] [place] [address] Dr. Uziel Reid Lymphocytes/100 WBC (Bld) 6.0 % Critically low 20.5-60.0 [facility] Comment on above: Performed By: #### C BC #### [facility] [address] [place] [address] Dr. Uziel Reid MANUAL DIFF REQ NO Normal [facility] Comment on above: Performed By: #### C BC #### [facility] [address] [place] [address] Dr. Uziel Reid MCH (RBC) [Entitic mass] 29.6 pg Normal 25.9-34.0 [facility] Comment on above: Performed By: #### C BC #### [facility] [address] [place] [address] Dr. Uziel Reid MCHC (RBC) [Mass/Vol] 32.2 g/dL Normal 29.9-35.2 [facility] Comment on above: Performed By: #### C BC #### [facility] [address] [address] [address] Uziel Reid MCV (RBC) [Entitic vol] 92.1 fL Normal 80.0-94.0 [facility] Comment on above: Performed By: #### C BC #### [facility] [address] [address] [address] Uziel Reid MONO # 1.5 103/ul Critically high 0.3-0.8 [facility] Comment on above: Performed By: #### C BC #### [facility] [address] [place] [address] Dr. Uziel Reid Monocytes/100 WBC (Bld) 9.8 % Normal 1.7-12.0 [facility] Comment on above: Performed By: #### C BC #### [facility] [address] [place] [address] Dr. Uziel Reid NEUT # 12.7 103/ul Critically high 1.4-6.5 [facility] Comment on above: Performed By: #### C BC #### [facility] [address] [place] [address] Dr. Uziel Reid Neutrophils/100 WBC (Bld) 82.5 % Critically high 43.0-75.0 [facility] Comment on above: Performed By: #### C BC #### [facility] [address] [place] [address] Dr. Uziel Reid Platelet mean volume (Bld) [Entitic vol] 9.8 fL Normal 9.5-13.5 [facility] Comment on above: Performed By: #### C BC #### [facility] [address] [place] [address] Dr. Uziel Reid PLT 199 103/ul Normal 150-450 [facility] Comment on above: Performed By: #### C BC #### [facility] [address] [place] [address] Dr. Uziel Reid RBC 3.41 106/ul Critically low 4.70-6.10 [facility] Comment on above: Performed By: #### C BC #### [facility] [address] [place], [place] [address] Dr. Uziel Reid WBC 15.3 103/ul Critically high 4.0-11.0 [facility] Comment on above: Performed By: #### C BC #### [facility] [address] [place], [place] [address] Dr. Uziel Reid [facility]02 SARS-CoV-2 (COVID-19) RNA ALFONSO+probe Ql (Unsp spec) Not detected Normal NOT DETECTED [facility] Comment on above: Result Comment: When diagnostic testing is negative, the possibility of a false negative should be considered in the context of a patient's recent exposures and the presence of clinical signs and symptoms consistent with SARS-CoV-2. This test is not yet approved or cleared by the [place] Food and Drug Administration (FDA). This test was developed by [employer], [place], [place]. The performance characteristics of this test were validated by [facility]. The results are not intended to be used as the sole means for clinical diagnosis or patient management decisions. [facility] is authorized under Clinical Laboratory Improvement [...] for this test is supported by the Clinical Lab Specialist of Health and Human Service's declaration that [...] used). Performed By: #### C BCMAN #### [facility] [address] [place], [place] [address] Dr. Uziel Reid ER URINE PROFILEon 01-22-202 2 Bilirubin Ql (U) Negative Normal NEGATIVE [facility] Comment on above: Performed By: #### B MP, PHOS, MG #### [facility] [address] [place] [address] Dr. Uziel Reid Clarity (U) CLEAR Normal CLEAR [facility] Comment on above: Performed By: #### B MP, PHOS, MG #### [facility] [address] [address] [address] Uziel Reid Color (U) LT. YELLOW Normal YELLOW [facility] Comment on above: Performed By: #### B MP, PHOS, MG #### [facility] [address] [address] [address] Uziel STEIN A micrscopic examination will be performed if indicated. Normal [facility] Comment on above: Performed By: #### B MP, PHOS, MG #### [facility] [address] [place] [address] Dr. Uziel Reid Glucose Ql (U) Negative Normal NEGATIVE [facility] Comment on above: Performed By: #### B MP, PHOS, MG #### [facility] [address] [address] [address] Uziel Reid Hemoglobin Ql (U) Negative Normal NEGATIVE [facility] Comment on above: Performed By: #### B MP, PHOS, MG #### [facility] [address] [place] [address] Dr. Uziel Reid Ketones Ql (U) Negative Normal NEGATIVE [facility] Comment on above: Performed By: #### B MP, PHOS, MG #### [facility] [address] [place] [address] Dr. Uziel Reid LEUKOCYTES TRACE Abnormal NEGATIVE [facility] Comment on above: Performed By: #### B MP, PHOS, MG #### [facility] [address] [place] [address] Dr. Uziel Reid Nitrite Ql (U) Positive Abnormal NEGATIVE [facility] Comment on above: Performed By: #### B MP, PHOS, MG #### [facility] [address] [address] [address] Uziel Reid pH (U) 6.0 [pH] Normal 5-9 [facility] Comment on above: Performed By: #### B MP, PHOS, MG #### [facility] [address] [place] [address] Dr. Uziel Reid SPEC GRAVITY 1.010 Normal 1.005-<=1.025 [facility] Comment on above: Performed By: #### B MP, PHOS, MG #### [facility] [address] [place] [address] Dr. Uziel Reid UA PROTEIN Negative Normal NEGATIVE/ TRACE [facility] Comment on above: Performed By: #### B MP, PHOS, MG #### [facility] [address] [place] [address] Dr. Uziel Reid UR MICRO IND INDICATED Normal [facility] Comment on above: Performed By: #### B MP, PHOS, MG #### [facility] [address] [place] [address] Dr. Uziel Reid Urobilinogen Qn (U) 0.2 {Sushma'U}/dL Normal 0.2 - 1. 0 [facility] Comment on above: Performed By: #### B MP, PHOS, MG #### [facility] [address] [place] [address] Dr. Uziel Reid PROF 14(COMP METB)on 022 Albumin [Mass/Vol] 1.8 g/dL Critically low 3.5-5.0 [facility] Comment on above: Performed By: #### H STROPN #### [facility] [address] [place] [address] Dr. Uziel Reid Albumin/Globulin [Mass ratio] 0.4 {ratio} Normal [facility] Comment on above: Performed By: #### H STROPN #### [facility] [address] [place] [address] Dr. Uziel Reid ALP [Catalytic activity/Vol] 211 U/L Critically high 38-126 [facility] Comment on above: Performed By: #### H STROPN #### [facility] [address] [address] [address] Uziel Reid ALT [Catalytic activity/Vol] 104 U/L Critically high 21-72 [facility] Comment on above: Performed By: #### H STROPN #### [facility] [address] [address] [address] Uziel Reid Anion gap [Moles/Vol] 7.1 mmol/L Normal [facility] Comment on above: Performed By: #### H STROPN #### [facility] [address] [address] [address] Uziel Reid AST [Catalytic activity/Vol] 86 U/L Critically high 17-59 [facility] Comment on above: Performed By: #### H STROPN #### [facility] [address] [address] [address] Uziel Reid Bilirubin [Mass/Vol] 0.7 mg/dL Normal 0.2-1.3 [facility] Comment on above: Performed By: #### H STROPN #### [facility] [address] [address] [address] Uzeil Reid Calcium [Mass/Vol] 8.2 mg/dL Critically low 8.4-10.2 [facility] Comment on above: Performed By: #### H STROPN #### [facility] [address] [address] [address] Uziel Reid Chloride [Moles/Vol] 88 mmol/L Critically low 98-107 [facility] Comment on above: Performed By: #### H STROPN #### [facility] [address] [address] [address] Uziel Reid CO2 [Moles/Vol] 36.3 mmol/L Critically high 22.0-30.0 [facility] Comment on above: Performed By: #### H STROPN #### [facility] [address] [address] [address] Uziel Reid Creatinine [Mass/Vol] 1.75 mg/dL Critically high 0.66-1.25 [facility] Comment on above: Performed By: #### H STROPN #### [facility] [address] [address] [address] Uziel Reid EGFR-AF [place] 45 mL/min/1.73m2 Critically low >=60 [facility] Comment on above: Performed By: #### H STROPN #### [facility] [address] [address] [address] Uziel Reid EGFR-NON AF [place] 37 mL/min/1.73m2 Critically low >=60 [facility] Comment on above: Performed By: #### H STROPN #### [facility] [address] [address] [address] Uziel Reid Globulin (S) [Mass/Vol] 5.0 g/dL Normal [facility] Comment on above: Performed By: #### H STROPN #### [facility] [address] [address] [address] Uziel Reid Glucose [Mass/Vol] 226 mg/dL Critically high 74-106 T [facility] Comment on above: Performed By: #### H STROPN #### [facility] [address] [address] [address] Uziel Reid Potassium [Moles/Vol] 3.4 mmol/L Normal 3.4-5.0 [facility] Comment on above: Performed By: #### H STROPN #### [facility] [address] [address] [address] Uziel Reid Protein [Mass/Vol] 6.8 g/dL Normal 6.1-8.2 [facility] Comment on above: Performed By: #### H STROPN #### [facility] [address] [address] [address] Uziel Reid Sodium [Moles/Vol] 128 mmol/L Critically low 137-145 Th [facility] Comment on above: Performed By: #### H STROPN #### [facility] [address] [address] [address] Uziel Reid Urea nitrogen [Mass/Vol] 30.0 mg/dL Critically high 9.0-20.0 [facility] Comment on above: Performed By: #### H STROPN #### [facility] [address] [place] [address] Dr. Uziel Reid Urea nitrogen/Creatinine [Mass ratio] 17.1 mg/mg Normal [facility] Comment on above: Performed By: #### H STROPN #### [facility] [address] [place] [address] Dr. Uziel Reid TROPONIN, HIGH SENSITIVITYon 08-22-2021 HSTROP 8.2 pg/mL Normal 4.0-42.2 [facility] Comment on above: Result Comment: CUT- OFF POINTS HAVE BEEN ESTABLISHED BASED ON THE FOURTH UNIVERSAL DEFINITIONS OF MYOCARDIAL INFARCTION. THE UPPER REFERENCE LIMIT (URL) OF TROPONIN, DEFINED THE 99TH PERCENTILE OF cTnI DISTRIBUTION IN A REFERENCE POPULATION, HAS BEEN CONFIRMED THE DECISION THRESHOLD FOR OR DIAGNOSIS. Performed By: #### H STROPN #### [facility] [address] [place] [address] Dr. Uziel Reid URINE MICROSCOPIC ONLYon BACTERIA MODERATE Abnormal NONE SEEN [facility] Comment on above: Performed By: #### B MP, PHOS, MG #### [facility] [address] [place] [address] Dr. Uziel Reid Bacteria identified Cx Nom (U) INDICATED Normal [facility] Comment on above: Performed By: #### B MP, PHOS, MG #### [facility] [address] [place] [address] Dr. Uziel Reid CAST NONE SEEN Normal NONE SEEN [facility] Comment on above: Performed By: #### B MP, PHOS, MG #### [facility] [address] [place] [address] Dr. Uziel Reid Crystals LM Nom (Urine sed) NONE SEEN Normal NONE SEEN [facility] Comment on above: Performed By: #### B MP, PHOS, MG #### [facility] [address] [place] [address] Dr. Uziel Reid Epithelial cells LM Ql (Urine sed) NONE SEEN Normal NONE SEEN /RARE [facility] Comment on above: Performed By: #### B MP, PHOS, MG #### [facility] [address] [place] [address] Dr. Uziel Reid MUCOUS NONE SEEN Normal NONE SEEN [facility] Comment on above: Performed By: #### B MP PHOS, MG #### [facility] [address] [address] [address] Uziel Reid RBC 0-2 Normal 0-2 [facility] Comment on above: Performed By: #### B MP PHOS, MG #### [facility] [address] [address] [address] Uziel Reid WBC 10-20 Abnormal NONE SEEN [facility] Comment on above: Performed By: #### B MP, PHOS, MG #### [facility] [address] [address] [address] Uziel Reid XR CHEST 1 Von [...] GERARDO BRADY Date: 2021-08-22 00:30 Normal [facility] CBC W MANUAL DIFFon 08-18-19 22 ATYPICAL LYMPH # Normal [facility] Comment on above: Performed By: #### C FERDINAND #### [facility] [address] [address] [address] Uziel Reid ATYPICAL LYMPH % Normal [facility] Comment on above: Performed By: #### C FERDINAND #### [facility] [address] [address] [address] Uziel Reid BAND # Normal 0.0-0.3 [facility] Comment on above: Performed By: #### C FERDINAND #### [facility] [address] [address] [address] Uziel Reid BAND % Normal 0-5 [facility] Comment on above: Performed By: #### C BCSARIKA #### [facility] [address] [place] [address] Dr. Uziel Reid BASOM # 0.00 103/ul Normal 0.00-0.10 [facility] Comment on above: Performed By: #### C BCSARIKA #### [facility] [address] [place] [address] Dr. Uziel Reid BASOM % 0.0 % Critically low 0.2-2.[address] [facility] Comment on above: Performed By: #### C BCSARIKA #### [facility] [address] [place] [address] Dr. Uziel Reid BLAST # Normal [facility] Comment on above: Performed By: #### C FERDINAND #### [facility] [address] [place] [address] Dr. Uziel Reid BLAST % Normal [facility] Comment on above: Performed By: #### C FERDINAND #### [facility] [address] [place] [address] Dr. Uziel Reid CORRECTED WBC Normal 4.0-11.0 [facility] Comment on above: Performed By: #### C FERDINAND #### [facility] [address] [place] [address] Dr. Uziel Reid EOS # 0.00 103/ul Normal 0.00-0.70 [facility] Comment on above: Performed By: #### C FERDINAND #### [facility] [address] [place] [address] Dr. Uziel Reid EOS% 0.0 % Critically low 0.9-7.[address] [facility] Comment on above: Performed By: #### C FERDINAND #### [facility] [address] [place] [address] Dr. Uziel Reid HCT 31.8 % Critically low 42.0-54.[address] [facility] Comment on above: Performed By: #### C FERDINAND #### [facility] [address] [place] [address] Dr. Uziel Reid HGB 10.2 g/dl Critically low 14.0-18.0 [facility] Comment on above: Performed By: #### C FERDINAND #### [facility] [address] [address] [address] Uziel Reid LYMPHM # 1.83 103/ul Normal 1.20-3.80 [facility] Comment on above: Performed By: #### C FERDINAND #### [facility] [address] [address] [address] Uziel Reid LYMPHM% 11.0 % Critically low 20.5-60.[address] [facility] Comment on above: Performed By: #### C FERDINAND #### [facility] [address] [place] [address] Dr. Uziel Reid MCH 29.7 pg Normal 25.9-34.0 [facility] Comment on above: Performed By: #### C FERDINAND #### [facility] [address] [place] [address] Dr. Uziel Reid MCHC 32.1 g/dl Normal 29.9-35.2 [facility] Comment on above: Performed By: #### C FERDINAND #### [facility] [address] [place] [address] Dr. Uziel Reid MCV 92.7 fL Normal 80.0-94.0 [facility] Comment on above: Performed By: #### C FERDINAND #### [facility] [address] [place] [address] Dr. Uziel Reid METAMYELOCYTE # Normal [facility] Comment on above: Performed By: #### C FERDINAND #### [facility] [address] [place] [address] Dr. Uziel Reid METAMYELOCYTE % Normal [facility] Comment on above: Performed By: #### C FERDINAND #### [facility] [address] [place] [address] Dr. Uziel Reid MONOM# 1.83 103/ul Critically high 0.30-0.80 [facility] Comment on above: Performed By: #### C FERDINAND #### [facility] [address] [place] [address] Dr. Uziel Reid MONOM% 11.0 % Normal 1.7-12.0 [facility] Comment on above: Performed By: #### C FERDINAND #### [facility] [address] [place] [address] Dr. Uziel Reid MPV 9.8 fL Normal 9.5-13.5 [facility] Comment on above: Performed By: #### C FERDINAND #### [facility] [address] [place] [address] Dr. Uziel Reid MYELOCYTE # Normal [facility] Comment on above: Performed By: #### C FERDINAND #### [facility] [address] [place] [address] Dr. Uziel Reid MYELOCYTE % Normal [facility] Comment on above: Performed By: #### C FERDINAND #### [facility] [address] [place] [address] Dr. Uziel Reid NRBC Normal [facility] Comment on above: Performed By: #### C FERDINAND #### [facility] [address] [place] [address] Dr. Uziel Reid PLT 240 103/ul Normal 150-450 [facility] Comment on above: Performed By: #### C FERDINAND #### [facility] [address] [place] [address] Dr. Uziel Reid RBC 3.43 106/ul Critically low 4.70-6.10 [facility] Comment on above: Performed By: #### C FERDINAND #### [facility] [address] [place] [address] Dr. Uziel Reid RDW 13.3 % Normal 11.0-15.0 [facility] Comment on above: Performed By: #### C FERDINAND #### [facility] [address] [place] [address] Dr. Uziel Reid SEG # 12.95 103/ul Critically high 1.40-6.50 [facility] Comment on above: Performed By: #### C FERDINAND #### [facility] [address] [place] [address] Dr. Uziel Reid SEG % 78.0 % Critically high 43.0-75.0 [facility] Comment on above: Performed By: #### C FERDINAND #### [facility] [address] [place] [address] Dr. Uziel Reid WBC 16.6 103/ul Critically high 4.0-11.0 [facility] Comment on above: Performed By: #### C FERDINAND #### [facility] [address] [place] [address] Dr. Uziel Reid PROF 14(COMP METB)on 022 Albumin [Mass/Vol] 1.9 g/dL Critically low 3.5-5.0 [facility] Comment on above: Performed By: #### B MP, PHOS, MG #### [facility] [address] [place] [address] Dr. Uziel Reid Albumin/Globulin [Mass ratio] 0.4 {ratio} Normal [facility] Comment on above: Performed By: #### B MP, PHOS, MG #### [facility] [address] [place] [address] Dr. Uziel Reid ALP [Catalytic activity/Vol] 130 U/L Critically high 38-126 [facility] Comment on above: Performed By: #### B MP, PHOS, MG #### [facility] [address] [place] [address] Dr. Uziel Reid ALT [Catalytic activity/Vol] 38 U/L Normal 21-72 [facility] Comment on above: Performed By: #### B MP, PHOS, MG #### [facility] [address] [place] [address] Dr. Uziel Reid Anion gap [Moles/Vol] 6.0 mmol/L Normal [facility] Comment on above: Performed By: #### B MP, PHOS, MG #### [facility] [address] [place] [address] Dr. Uziel Reid AST [Catalytic activity/Vol] 29 U/L Normal 17-59 [facility] Comment on above: Performed By: #### B MP, PHOS, MG #### [facility] [address] [address] [address] Uziel Reid Bilirubin [Mass/Vol] 0.8 mg/dL Normal 0.2-1.3 [facility] Comment on above: Performed By: #### B MP, PHOS, MG #### [facility] [address] [place] [address] Dr. Uziel Reid Calcium [Mass/Vol] 8.2 mg/dL Critically low 8.4-10.2 [facility] Comment on above: Performed By: #### B MP, PHOS, MG #### [facility] [address] [address] [address] Uziel Reid Chloride [Moles/Vol] 90 mmol/L Critically low 98-107 [facility] Comment on above: Performed By: #### B MP, PHOS, MG #### [facility] [address] [place] [address] Dr. Uziel Reid CO2 [Moles/Vol] 39.8 mmol/L Critically high 22.0-30.0 [facility] Comment on above: Performed By: #### B MP, PHOS, MG #### [facility] [address] [address] [address] Uziel Reid Creatinine [Mass/Vol] 1.12 mg/dL Normal 0.66-1.25 [facility] Comment on above: Performed By: #### B MP, PHOS, MG #### [facility] [address] [place] [address] Dr. Uziel Reid EGFR-AF [place] 76 mL/min/1.73m2 Normal >=60 [facility] Comment on above: Performed By: #### B MP, PHOS, MG #### [facility] [address] [place] [address] Dr. Uziel Reid EGFR-NON AF [place] 62 mL/min/1.73m2 Normal >=60 [facility] Comment on above: Performed By: #### B MP, PHOS, MG #### [facility] [address] [place] [address] Dr. Uziel Reid Globulin (S) [Mass/Vol] 4.7 g/dL Normal [facility] Comment on above: Performed By: #### B MP, PHOS, MG #### [facility] [address] [address] [address] Uziel Reid Glucose [Mass/Vol] 131 mg/dL Critically high 74-106 T [facility] Comment on above: Performed By: #### B MP, PHOS, MG #### [facility] [address] [place] [address] Dr. Uziel Reid Potassium [Moles/Vol] 2.8 mmol/L Critically low 3.4-5.0 [facility] Comment on above: Result Comment: TEST REPEATED CRITICAL VALUE VERIFIED Performed By: #### B MP, PHOS, MG #### [facility] [address] [place] [address] Dr. Uziel Reid Protein [Mass/Vol] 6.6 g/dL Normal 6.1-8.2 [facility] Comment on above: Performed By: #### B MP, PHOS, MG #### [facility] [address] [place] [address] Dr. Uziel Reid Sodium [Moles/Vol] 132 mmol/L Critically low 137-145 Th [facility] Comment on above: Performed By: #### B MP, PHOS, MG #### [facility] [address] [place] [address] Dr. Uziel Reid Urea nitrogen [Mass/Vol] 19.0 mg/dL Normal 9.0-20.0 [facility] Comment on above: Performed By: #### B MP, PHOS, MG #### [facility] [address] [place] [address] Dr. Uziel Redi Urea nitrogen/Creatinine [Mass ratio] 17.0 mg/mg Normal [facility] Comment on above: Performed By: #### B MP, PHOS, MG #### [facility] [address] [place] [address] Dr. Uziel Reid TROPONIN, HIGH SENSITIVITYon 08-18-2021 HSTROP 7.6 pg/mL Normal 4.0-42.2 [facility] Comment on above: Result Comment: CUT- OFF POINTS HAVE BEEN ESTABLISHED BASED ON THE FOURTH UNIVERSAL DEFINITIONS OF MYOCARDIAL INFARCTION. THE UPPER REFERENCE LIMIT (URL) OF TROPONIN, DEFINED THE 99TH PERCENTILE OF cTnI DISTRIBUTION IN A REFERENCE POPULATION, HAS BEEN CONFIRMED THE DECISION THRESHOLD FOR OR DIAGNOSIS. Performed By: #### H STROPN #### [facility] [address] [place] [address] Dr. Uziel Reid MAGNESIUMon 08-10-2021 Magnesium [Mass/Vol] 2.2 mg/dL Normal 1.6-2.3 [facility] Comment on above: Performed By: #### B MP, PHOS, MG #### [facility] [address] [place] [address] Dr. Uziel Reid PHOSPHORUSon 08-10-2021 Phosphate [Mass/Vol] 3.0 mg/dL Normal 2.5-4.5 [facility] Comment on above: Performed By: #### B MP, PHOS, MG #### [facility] [address] [place] [address] Dr. Uziel Reid POINT OF CARE GLUCOSEon 08-01 Glucose [Mass/Vol] 135 mg/dL Critically high 74-106 T [facility] Comment on above: Performed By: #### P OCGLUC #### [facility] [address] [place] [address] Dr. Uziel Reid PROF CHEM 8 (BAS METB)on Anion gap [Moles/Vol] 1.8 mmol/L Normal [facility] Comment on above: Performed By: #### B MP, PHOS, MG #### [facility] [address] [place] [address] Dr. Uziel Reid Calcium [Mass/Vol] 7.8 mg/dL Critically low 8.4-10.2 [facility] Comment on above: Performed By: #### B MP, PHOS, MG #### [facility] [address] [place] [address] Dr. Uziel Reid Chloride [Moles/Vol] 100 mmol/L Normal 98-107 [facility] Comment on above: Performed By: #### B MP, PHOS, MG #### [facility] [address] [address] [address] Uziel Reid CO2 [Moles/Vol] 37.0 mmol/L Critically high 22.0-30.0 [facility] Comment on above: Performed By: #### B MP, PHOS, MG #### [facility] [address] [address] [address] Uziel Reid Creatinine [Mass/Vol] 0.73 mg/dL Normal 0.66-1.25 [facility] Comment on above: Performed By: #### B MP, PHOS, MG #### [facility] [address] [address] [address] Uziel Reid EGFR-AF [place] >60 Normal >=60 [facility] Comment on above: Performed By: #### B MP, PHOS, MG #### [facility] [address] [place] [address] Dr. Uziel Reid EGFR-NON AF [place] >60 Normal >=60 [facility] Comment on above: Performed By: #### B MP, PHOS, MG #### [facility] [address] [address] [address] Uziel Reid Glucose [Mass/Vol] 136 mg/dL Critically high 74-106 [facility] Comment on above: Performed By: #### B MP, PHOS, MG #### [facility] [address] [place] [address] Dr. Uziel Reid Potassium [Moles/Vol] 3.8 mmol/L Normal 3.4-5.0 [facility] Comment on above: Performed By: #### B MP, PHOS, MG #### [facility] [address] [address] [address] Uziel Reid Sodium [Moles/Vol] 135 mmol/L Critically low 137-145 Th [facility] Comment on above: Performed By: #### B MP, PHOS, MG #### [facility] [address] [place] [address] Dr. Uziel Reid Urea nitrogen [Mass/Vol] 16.0 mg/dL Normal 9.0-20.0 [facility] Comment on above: Performed By: #### B MP, PHOS, MG #### [facility] [address] [address] [address] Uziel Reid Urea nitrogen/Creatinine [Mass ratio] 21.9 mg/mg Normal [facility] Comment on above: Performed By: #### B MP, PHOS, MG #### [facility] [address] [address] [address] Uziel Reid BNPon 08-09-2021 Natriuretic peptide B (Bld) [Mass/Vol] 301.0 pg/mL Normal <=1,800.0 [facility] Comment on above: Performed By: #### B MP, PHOS, MG #### [facility] [address] [place] [address] Dr. Uziel Reid MAGNESIUMon 08-09-2021 Magnesium [Mass/Vol] 2.4 mg/dL Critically high 1.6-2.3 [facility] Comment on above: Performed By: #### B MP, PHOS, MG #### [facility] [address] [place] [address] Dr. Uziel Reid PHOSPHORUSon 08-09-2021 Phosphate [Mass/Vol] 3.1 mg/dL Normal 2.5-4.5 [facility] Comment on above: Performed By: #### B MP, PHOS, MG #### [facility] [address] [place] [address] Dr. Uziel Reid POINT OF CARE GLUCOSEon Glucose [Mass/Vol] 158 mg/dL Critically high 74-106 [facility] Comment on above: Performed By: #### B MP, PHOS, MG #### [facility] [address] [place] [address] Dr. Uziel Reid Glucose [Mass/Vol] 188 mg/dL Critically high -106 [facility] Comment on above: Performed By: #### B MP, PHOS, MG #### [facility] [address] [place] [address] Dr. Uziel Reid PROF CHEM 8 (BAS METB)on Anion gap [Moles/Vol] 4.8 mmol/L Normal [facility] Comment on above: Performed By: #### B MP, PHOS, MG #### [facility] [address] [place] [address] Dr. Uziel Reid Calcium [Mass/Vol] 7.5 mg/dL Critically low 8.4-10.2 [facility] Comment on above: Performed By: #### B MP, PHOS, MG #### [facility] [address] [place] [address] Dr. Uziel Reid Chloride [Moles/Vol] 101 mmol/L Normal 98-107 [facility] Comment on above: Performed By: #### B MP, PHOS, MG #### [facility] [address] [place] [address] Dr. Uziel Reid CO2 [Moles/Vol] 36.9 mmol/L Critically high 22.0-30.0 [facility] Comment on above: Performed By: #### B MP PHOS, MG #### [facility] [address] [place] [address] Dr. Uziel Reid Creatinine [Mass/Vol] 0.64 mg/dL Critically low 0.66-1.25 [facility] Comment on above: Performed By: #### B MP, PHOS, MG #### [facility] [address] [place] [address] Dr. Uziel Reid EGFR-AF [place]IZ[place] >60 Normal >=60 [facility] Comment on above: Performed By: #### B MP, PHOS, MG #### [facility] [address] [place] [address] Dr. Uziel Reid EGFR-NON AF [place]IZ[place] >60 Normal >=60 [facility] Comment on above: Performed By: #### B MP, PHOS, MG #### [facility] [address] [place] [address] Dr. Uziel Reid Glucose [Mass/Vol] 122 mg/dL Critically high 74-106 [facility] Comment on above: Performed By: #### B MP, PHOS, MG #### [facility] [address] [address] [address] Uziel eRid Potassium [Moles/Vol] 3.7 mmol/L Normal 3.4-5.0 [facility] Comment on above: Performed By: #### B MP, PHOS, MG #### [facility] [address] [place] [address] Dr. Uziel Reid Sodium [Moles/Vol] 139 mmol/L Normal 137-145 [facility] Comment on above: Performed By: #### B MP, PHOS, MG #### [facility] [address] [place] [address] Dr. Uziel Reid Urea nitrogen [Mass/Vol] 21.0 mg/dL Critically high 9.0-20.0 [facility] Comment on above: Performed By: #### B MP, PHOS, MG #### [facility] [address] [place] [address] Dr. Uziel Reid Urea nitrogen/Creatinine [Mass ratio] 32.8 mg/mg Normal [facility] Comment on above: Performed By: #### B MP, PHOS, MG #### [facility] [address] [place] [address] Dr. Uziel Reid XR CHEST 2 Von [...] DOMINIC STEVE Date: 2021-08-09 15:11 Normal [facility] MAGNESIUMon 08-08-2021 Magnesium [Mass/Vol] 2.5 mg/dL Critically high 1.6-2.3 [facility] Comment on above: Performed By: #### B MP, PHOS, MG #### [facility] [address] [place] [address] Dr. Uziel Reid PHOSPHORUSon 08-08-2021 Phosphate [Mass/Vol] 2.4 mg/dL Critically low 2.5-4.5 [facility] Comment on above: Performed By: #### B MP, PHOS, MG #### [facility] [address] [address] [address] Uziel Reid PROF CHEM 8 (BAS METB)on Anion gap [Moles/Vol] 5.7 mmol/L Normal [facility] Comment on above: Performed By: #### B MP, PHOS, MG #### [facility] [address] [place] [address] Dr. Uziel Reid Calcium [Mass/Vol] 7.3 mg/dL Critically low 8.4-10.2 Th [facility] Comment on above: Performed By: #### B MP, PHOS, MG #### [facility] [address] [place] [address] Dr. Uziel Reid Chloride [Moles/Vol] 102 mmol/L Normal 98-107 [facility] Comment on above: Performed By: #### B MP, PHOS, MG #### [facility] [address] [place] [address] Dr. Uziel Reid CO2 [Moles/Vol] 34.6 mmol/L Critically high 22.0-30.0 [facility] Comment on above: Performed By: #### B MP, PHOS, MG #### [facility] [address] [place] [address] Dr. Uziel Reid Creatinine [Mass/Vol] 0.64 mg/dL Critically low 0.66-1.25 [facility] Comment on above: Performed By: #### B MP, PHOS, MG #### [facility] [address] [place] [address] Dr. Uziel Reid EGFR-AF [place] >60 Normal >=60 [facility] Comment on above: Performed By: #### B MP, PHOS, MG #### [facility] [address] [place] [address] Dr. Uziel Reid EGFR-NON AF [place] >60 Normal >=60 [facility] Comment on above: Performed By: #### B MP, PHOS, MG #### [facility] [address] [place] [address] Dr. Uziel Reid Glucose [Mass/Vol] 259 mg/dL Critically high 74-106 T [facility] Comment on above: Performed By: #### B MP, PHOS, MG #### [facility] [address] [place] [address] Dr. Uziel Redi Potassium [Moles/Vol] 3.3 mmol/L Critically low 3.4-5.0 [facility] Comment on above: Performed By: #### B MP, PHOS, MG #### [facility] [address] [place] [address] Dr. Uziel Reid Sodium [Moles/Vol] 139 mmol/L Normal 137-145 [facility] Comment on above: Performed By: #### B MP, PHOS, MG #### [facility] [address] [place] [address] Dr. Uziel Reid Urea nitrogen [Mass/Vol] 19.0 mg/dL Normal 9.0-20.0 [facility] Comment on above: Performed By: #### B MP, PHOS, MG #### [facility] [address] [place] [address] Dr. Uziel Reid Urea nitrogen/Creatinine [Mass ratio] 29.7 mg/mg Normal [facility] Comment on above: Performed By: #### B MP, PHOS, MG #### [facility] [address] [place] [address] Dr. Uziel Reid MAGNESIUMon 08-07-2021 Magnesium [Mass/Vol] 2.6 mg/dL Critically high 1.6-2.3 [facility] Comment on above: Performed By: #### P OCGLUC #### [facility] [address] [place] [address] Dr. Uziel Reid PHOSPHORUSon 08-07-2021 Phosphate [Mass/Vol] 2.3 mg/dL Critically low 2.5-4.5 [facility] Comment on above: Performed By: #### B MP, PHOS, MG #### [facility] [address] [address] [address] Uziel Reid POINT OF CARE GLUCOSEon Glucose [Mass/Vol] 191 mg/dL Critically high 74-106 [facility] Comment on above: Performed By: #### B MP, PHOS, MG #### [facility] [address] [address] [address] Uziel Reid PROF CHEM 8 (BAS METB)on Anion gap [Moles/Vol] 1.8 mmol/L Normal [facility] Comment on above: Performed By: #### P OCGLUC #### [facility] [address] [place] [address] Dr. Uziel Reid Calcium [Mass/Vol] 7.4 mg/dL Critically low 8.4-10.2 Th [facility] Comment on above: Performed By: #### P OCGLUC #### [facility] [address] [place] [address] Dr. Uziel Reid Chloride [Moles/Vol] 106 mmol/L Normal 98-107 [facility] Comment on above: Performed By: #### P OCGLUC #### [facility] [address] [place] [address] Dr. Uziel Reid CO2 [Moles/Vol] 38.3 mmol/L Critically high 22.0-30.0 [facility] Comment on above: Performed By: #### P OCGLUC #### [facility] [address] [place] [address] Dr. Uziel Reid Creatinine [Mass/Vol] 0.65 mg/dL Critically low 0.66-1.25 [facility] Comment on above: Performed By: #### P OCGLUC #### [facility] [address] [place] [address] Dr. Uziel Reid EGFR-AF [place] >60 Normal >=60 [facility] Comment on above: Performed By: #### P OCGLUC #### [facility] [address] [place] [address] Dr. Uziel Reid EGFR-NON AF [place] >60 Normal >=60 [facility] Comment on above: Performed By: #### P OCGLUC #### [facility] [address] [address] [address] Uziel Reid Glucose [Mass/Vol] 208 mg/dL Critically high 74-106 [facility] Comment on above: Performed By: #### P OCGLUC #### [facility] [address] [address] [address] Uziel Reid Potassium [Moles/Vol] 3.1 mmol/L Critically low 3.4-5.0 [facility] Comment on above: Performed By: #### P OCGLUC #### [facility] [address] [address] [address] Uziel Reid Sodium [Moles/Vol] 143 mmol/L Normal 137-145 [facility] Comment on above: Performed By: #### P OCGLUC #### [facility] [address] [place] [address] Dr. Uziel Reid Urea nitrogen [Mass/Vol] 19.0 mg/dL Normal 9.0-20.0 [facility] Comment on above: Performed By: #### P OCGLUC #### [facility] [address] [place] [address] Dr. Uziel Reid Urea nitrogen/Creatinine [Mass ratio] 29.2 mg/mg Normal [facility] Comment on above: Performed By: #### P OCGLUC #### [facility] [address] [place] [address] Dr. Uziel Reid CBC AUTO DIFFon 08-06-2021 BASO # 0.0 103/ul Normal 0.0-0.1 [facility] Comment on above: Performed By: #### B MP, PHOS, MG #### [facility] [address] [place] [address] Dr. Uziel Reid Basophils/100 WBC (Bld) 0.2 % Normal 0.2-2.0 [facility] Comment on above: Performed By: #### B MP, PHOS, MG #### [facility] [address] [place] [address] Dr. Uziel Reid EO # 0.2 103/ul Normal 0.0-0.7 [facility] Comment on above: Performed By: #### B MP, PHOS, MG #### [facility] [address] [address] [address] Uziel Reid Eosinophils/100 WBC (Bld) 1.3 % Normal 0.9-7.0 [facility] Comment on above: Performed By: #### B MP, PHOS, MG #### [facility] [address] [address] [address] Uziel Reid Erythrocyte distribution width (RBC) [Ratio] 13.5 % Normal 11.0-15.0 [facility] Comment on above: Performed By: #### B MP, PHOS, MG #### [facility] [address] [place] [address] Dr. Uziel Reid Hematocrit (Bld) [Volume fraction] 38.6 % Critically low 42.0-54.0 [facility] Comment on above: Performed By: #### B MP, PHOS, MG #### [facility] [address] [place] [address] Dr. Uziel Reid Hemoglobin (Bld) [Mass/Vol] 12.2 g/dL Critically low 14.0-18.0 [facility] Comment on above: Performed By: #### B MP, PHOS, MG #### [facility] [address] [place] [address] Dr. Uziel Reid IG # 0.35 10e3/ul Critically high 0.00-0.03 [facility] Comment on above: Performed By: #### B MP, PHOS, MG #### [facility] [address] [place] [address] Dr. Uziel Reid IG % 2.2 % Critically high 0.0-0.5 [facility] Comment on above: Performed By: #### B MP, PHOS, MG #### [facility] [address] [place] [address] Dr. Uziel Reid LYMPH # 1.0 103/ul Critically low 1.2-3.[address] [facility] Comment on above: Performed By: #### B MP, PHOS, MG #### [facility] [address] [place] [address] Dr. Uziel Reid Lymphocytes/100 WBC (Bld) 6.1 % Critically low 20.5-60.0 [facility] Comment on above: Performed By: #### B MP, PHOS, MG #### [facility] [address] [place] [address] Dr. Uziel Reid MANUAL DIFF REQ NO Normal [facility] Comment on above: Performed By: #### B MP, PHOS, MG #### [facility] [address] [place] [address] Dr. Uziel Reid MCH (RBC) [Entitic mass] 30.1 pg Normal 25.9-34.0 [facility] Comment on above: Performed By: #### B MP, PHOS, MG #### [facility] [address] [place] [address] Dr. Uziel Reid MCHC (RBC) [Mass/Vol] 31.6 g/dL Normal 29.9-35.2 [facility] Comment on above: Performed By: #### B MP, PHOS, MG #### [facility] [address] [place] [address] Dr. Uziel Reid MCV (RBC) [Entitic vol] 95.3 fL Critically high 80.0-94.0 [facility] Comment on above: Performed By: #### B MP, PHOS, MG #### [facility] [address] [place] [address] Dr. Uziel Reid MONO # 1.2 103/ul Critically high 0.3-0.8 [facility] Comment on above: Performed By: #### B MP, PHOS, MG #### [facility] [address] [place] [address] Dr. Uziel Reid Monocytes/100 WBC (Bld) 7.6 % Normal 1.7-12.0 [facility] Comment on above: Performed By: #### B MP, PHOS, MG #### [facility] [address] [place] [address] Dr. Uziel Reid NEUT # 13.3 103/ul Critically high 1.4-6.5 [facility] Comment on above: Performed By: #### B MP, PHOS, MG #### [facility] [address] [address] [address] Uziel Reid Neutrophils/100 WBC (Bld) 82.6 % Critically high 43.0-75.0 [facility] Comment on above: Performed By: #### B MP, PHOS, MG #### [facility] [address] [address] [address] Uziel Reid Platelet mean volume (Bld) [Entitic vol] 10.0 fL Normal 9.5-13.5 [facility] Comment on above: Performed By: #### B MP, PHOS, MG #### [facility] [address] [address] [address] Uziel Reid PLT 206 103/ul Normal 150-450 [facility] Comment on above: Performed By: #### B MP, PHOS, MG #### [facility] [address] [address] [address] Uziel Reid RBC 4.05 106/ul Critically low 4.70-6.10 [facility] Comment on above: Performed By: #### B MP, PHOS, MG #### [facility] [address] [address] [address] Uziel Reid WBC 16.2 103/ul Critically high 4.0-11.0 [facility] Comment on above: Performed By: #### B MP, PHOS, MG #### [facility] [address] [address] [address] Uziel Reid POINT OF CARE GLUCOSEon -0 Glucose [Mass/Vol] 202 mg/dL Critically high 74-106 [facility] Comment on above: Performed By: #### B MP, PHOS, MG #### [facility] [address] [place] [address] Dr. Uziel Reid Glucose [Mass/Vol] 192 mg/dL Critically high 74-106 [facility] Comment on above: Performed By: #### P OCGLUC #### [facility] [address] [place] [address] Dr. Uziel Reid Glucose [Mass/Vol] 234 mg/dL Critically high 74-106 [facility] Comment on above: Performed By: #### P OCGLUC #### [facility] [address] [place] [address] Dr. Uziel Reid PROF 14(COMP METB)on 022 Albumin [Mass/Vol] 1.8 g/dL Critically low 3.5-5.0 Th [facility] Comment on above: Performed By: #### B MP, PHOS, MG #### [facility] [address] [place] [address] Dr. Uziel Reid Albumin/Globulin [Mass ratio] 0.5 {ratio} Normal [facility] Comment on above: Performed By: #### B MP, PHOS, MG #### [facility] [address] [place] [address] Dr. Uziel Reid ALP [Catalytic activity/Vol] 63 U/L Normal 38-126 [facility] Comment on above: Performed By: #### B MP, PHOS, MG #### [facility] [address] [place] [address] Dr. Uziel Reid ALT [Catalytic activity/Vol] 20 U/L Critically low 21-72 [facility] Comment on above: Performed By: #### B MP, PHOS, MG #### [facility] [address] [place] [address] Dr. Uziel Reid Anion gap [Moles/Vol] 5.5 mmol/L Normal [facility] Comment on above: Performed By: #### B MP, PHOS, MG #### [facility] [address] [place] [address] Dr. Uziel Reid AST [Catalytic activity/Vol] 17 U/L Normal 17-59 [facility] Comment on above: Performed By: #### B MP, PHOS, MG #### [facility] [address] [place] [address] Dr. Uziel Reid Bilirubin [Mass/Vol] 0.4 mg/dL Normal 0.2-1.3 [facility] Comment on above: Performed By: #### B MP, PHOS, MG #### [facility] [address] [address] [address] Uziel Reid Calcium [Mass/Vol] 7.3 mg/dL Critically low 8.4-10.2 [facility] Comment on above: Performed By: #### B MP, PHOS, MG #### [facility] [address] [address] [address] Uziel Reid Chloride [Moles/Vol] 107 mmol/L Normal 98-107 [facility] Comment on above: Performed By: #### B MP, PHOS, MG #### [facility] [address] [place] [address] Dr. Uziel Reid CO2 [Moles/Vol] 34.7 mmol/L Critically high 22.0-30.0 [facility] Comment on above: Performed By: #### B MP, PHOS, MG #### [facility] [address] [place] [address] Dr. Uziel Reid Creatinine [Mass/Vol] 0.64 mg/dL Critically low 0.66-1.25 [facility] Comment on above: Performed By: #### B MP, PHOS, MG #### [facility] [address] [place] [address] Dr. Uziel Reid EGFR-AF [place] >60 Normal >=60 [facility] Comment on above: Performed By: #### B MP, PHOS, MG #### [facility] [address] [place] [address] Dr. Uziel Reid EGFR-NON AF [place] >60 Normal >=60 [facility] Comment on above: Performed By: #### B MP, PHOS, MG #### [facility] [address] [place] [address] Dr. Uziel Reid Globulin (S) [Mass/Vol] 3.3 g/dL Normal [facility] Comment on above: Performed By: #### B MP, PHOS, MG #### [facility] [address] [address] [address] Uziel Reid Glucose [Mass/Vol] 187 mg/dL Critically high 74-106 [facility] Comment on above: Performed By: #### B MP, PHOS, MG #### [facility] [address] [address] [address] Uzile Reid Potassium [Moles/Vol] 3.2 mmol/L Critically low 3.4-5.0 [facility] Comment on above: Performed By: #### B MP, PHOS, MG #### [facility] [address] [address] [address] Uziel Reid Protein [Mass/Vol] 5.1 g/dL Critically low 6.1-8.2 [facility] Comment on above: Performed By: #### B MP, PHOS, MG #### [facility] [address] [address] [address] Uziel Reid Sodium [Moles/Vol] 144 mmol/L Normal 137-145 [facility] Comment on above: Performed By: #### B MP, PHOS, MG #### [facility] [address] [address] [address] Uziel Reid Urea nitrogen [Mass/Vol] 20.0 mg/dL Normal 9.0-20.0 [facility] Comment on above: Performed By: #### B MP, PHOS, MG #### [facility] [address] [address] [address] Uziel Reid Urea nitrogen/Creatinine [Mass ratio] 31.2 mg/mg Normal [facility] Comment on above: Performed By: #### B MP, PHOS, MG #### [facility] [address] [address] [address] Uziel Reid XR CHEST 1 Von [...] by: EDWARD WARD Date: 2021-08-06 10:15 Normal [facility] POINT OF CARE GLUCOSEon 01-0 Glucose [Mass/Vol] 90 mg/dL Normal 74-106 [facility] Comment on above: Performed By: #### B MP, PHOS, MG #### [facility] [address] [address] [address] Uziel Reid Glucose [Mass/Vol] 127 mg/dL Critically high 74-106 [facility] Comment on above: Performed By: #### P OCGLUC #### [facility] [address] [address] [address] Uziel Reid XR CHEST 1 Von [...] TIFFANI RENTERIA Date: 2021-08-05 21:04 Normal [facility] CBC AUTO DIFFon 08-04-2021 BASO # 0.1 103/ul Normal 0.0-0.1 [facility] Comment on above: Performed By: #### P OCGLUC #### [facility] [address] [place] [address] Dr. Uziel Reid Basophils/100 WBC (Bld) 0.5 % Normal 0.2-2.0 [facility] Comment on above: Performed By: #### P OCGLUC #### [facility] [address] [place] [address] Dr. Uziel Reid EO # 0.1 103/ul Normal 0.0-0.7 [facility] Comment on above: Performed By: #### P OCGLUC #### [facility] [address] [place] [address] Dr. Uziel Reid Eosinophils/100 WBC (Bld) 0.4 % Critically low 0.9-7.0 [facility] Comment on above: Performed By: #### P OCGLUC #### [facility] [address] [place] [address] Dr. Uziel Reid Erythrocyte distribution width (RBC) [Ratio] 13.4 % Normal 11.0-15.0 [facility] Comment on above: Performed By: #### P OCGLUC #### [facility] [address] [place] [address] Dr. Uziel Reid Hematocrit (Bld) [Volume fraction] 41.1 % Critically low 42.0-54.0 [facility] Comment on above: Performed By: #### P OCGLUC #### [facility] [address] [place] [address] Dr. Uziel Reid Hemoglobin (Bld) [Mass/Vol] 13.1 g/dL Critically low 14.0-18.0 [facility] Comment on above: Performed By: #### P OCGLUC #### [facility] [address] [place] [address] Dr. Uziel Reid IG # 0.20 10e3/ul Critically high 0.00-0.03 [facility] Comment on above: Performed By: #### P OCGLUC #### [facility] [address] [address] [address] Uziel Reid IG % 1.5 % Critically high 0.0-0.5 [facility] Comment on above: Performed By: #### P OCGLUC #### [facility] [address] [address] [address] Uziel eRid LYMPH # 0.9 103/ul Critically low 1.2-3.[address] [facility] Comment on above: Performed By: #### P OCGLUC #### [facility] [address] [place] [address] Dr. Uziel Reid Lymphocytes/100 WBC (Bld) 6.5 % Critically low 20.5-60.0 [facility] Comment on above: Performed By: #### P OCGLUC #### [facility] [address] [place] [address] Dr. Uziel Reid MANUAL DIFF REQ NO Normal [facility] Comment on above: Performed By: #### P OCGLUC #### [facility] [address] [place] [address] Dr. Uziel Reid MCH (RBC) [Entitic mass] 29.9 pg Normal 25.9-34.0 [facility] Comment on above: Performed By: #### P OCGLUC #### [facility] [address] [place] [address] Dr. Uziel Reid MCHC (RBC) [Mass/Vol] 31.9 g/dL Normal 29.9-35.2 [facility] Comment on above: Performed By: #### P OCGLUC #### [facility] [address] [place] [address] Dr. Uziel Reid MCV (RBC) [Entitic vol] 93.8 fL Normal 80.0-94.0 [facility] Comment on above: Performed By: #### P OCGLUC #### [facility] [address] [place] [address] Dr. Uziel Reid MONO # 1.5 103/ul Critically high 0.3-0.8 [facility] Comment on above: Performed By: #### P OCGLUC #### [facility] [address] [address] [address] Uziel Reid Monocytes/100 WBC (Bld) 11.2 % Normal 1.7-12.0 [facility] Comment on above: Performed By: #### P OCGLUC #### [facility] [address] [address] [address] Uziel Reid NEUT # 10.6 103/ul Critically high 1.4-6.5 [facility] Comment on above: Performed By: #### P OCGLUC #### [facility] [address] [place] [address] Dr. Uziel Reid Neutrophils/100 WBC (Bld) 79.9 % Critically high 43.0-75.0 [facility] Comment on above: Performed By: #### P OCGLUC #### [facility] [address] [place] [address] Dr. Uziel Reid Platelet mean volume (Bld) [Entitic vol] 10.3 fL Normal 9.5-13.5 [facility] Comment on above: Performed By: #### P OCGLUC #### [facility] [address] [place] [address] Dr. Uziel Reid PLT 224 103/ul Normal 150-450 [facility] Comment on above: Performed By: #### P OCGLUC #### [facility] [address] [place] [address] Dr. Uziel Reid RBC 4.38 106/ul Critically low 4.70-6.10 [facility] Comment on above: Performed By: #### P OCGLUC #### [facility] [address] [place] [address] Dr. Uziel Reid WBC 13.3 103/ul Critically high 4.0-11.0 The [facility] Comment on above: Performed By: #### P OCGLUC #### [facility] [address] [place] [address] Dr. Uziel Reid POINT OF CARE GLUCOSEon - Glucose [Mass/Vol] 142 mg/dL Critically high 74-106 [facility] Comment on above: Performed By: #### C BCMAN #### [facility] [address] [place] [address] Dr. Uziel Reid Glucose [Mass/Vol] 119 mg/dL Critically high 74-106 [facility] Comment on above: Performed By: #### H STROPN #### [facility] [address] [place] [address] Dr. Uziel Reid PROF CHEM 8 (BAS METB)on Anion gap [Moles/Vol] 10.9 mmol/L Normal [facility] Comment on above: Performed By: #### P OCGLUC #### [facility] [address] [place] [address] Dr. Uziel Reid Calcium [Mass/Vol] 7.6 mg/dL Critically low 8.4-10.2 [facility] Comment on above: Performed By: #### P OCGLUC #### [facility] [address] [place] [address] Dr. Uziel Reid Chloride [Moles/Vol] 106 mmol/L Normal 98-107 [facility] Comment on above: Performed By: #### P OCGLUC #### [facility] [address] [place] [address] Dr. Uziel Reid CO2 [Moles/Vol] 23.3 mmol/L Normal 22.0-30.0 [facility] Comment on above: Performed By: #### P OCGLUC #### [facility] [address] [place] [address] Dr. Uziel Reid Creatinine [Mass/Vol] 0.58 mg/dL Critically low 0.66-1.25 [facility] Comment on above: Performed By: #### P OCGLUC #### [facility] [address] [place] [address] Dr. Uziel Reid EGFR-AF [place] >60 Normal >=60 [facility] Comment on above: Performed By: #### P OCGLUC #### [facility] [address] [place] [address] Dr. Uziel Reid EGFR-NON AF [place] >60 Normal >=60 [facility] Comment on above: Performed By: #### P OCGLUC #### [facility] [address] [address] [address] Uziel Reid Glucose [Mass/Vol] 128 mg/dL Critically high 74-106 [facility] Comment on above: Performed By: #### P OCGLUC #### [facility] [address] [address] [address] Uziel Reid Potassium [Moles/Vol] 4.2 mmol/L Normal 3.4-5.0 [facility] Comment on above: Performed By: #### P OCGLUC #### [facility] [address] [address] [address] Uziel Reid Sodium [Moles/Vol] 136 mmol/L Critically low 137-145 [facility] Comment on above: Performed By: #### P OCGLUC #### [facility] [address] [address] [address] Uziel Reid Urea nitrogen [Mass/Vol] 32.0 mg/dL Critically high 9.0-20.0 [facility] Comment on above: Performed By: #### P OCGLUC #### [facility] [address] [place] [address] Dr. Uziel Reid Urea nitrogen/Creatinine [Mass ratio] 55.2 mg/mg Normal [facility] Comment on above: Performed By: #### P OCGLUC #### [facility] [address] [address] [address] Uziel Reid XR KUB 1 VIEWon [...] ZHANE DUCKWORTH Date: 2021-08-04 15:49 Normal [facility] POINT OF CARE GLUCOSEon Glucose [Mass/Vol] 132 mg/dL Critically high 74-106 [facility] Comment on above: Performed By: #### C BCMAN #### [facility] [address] [address] [address] Uziel Reid Glucose [Mass/Vol] 122 mg/dL Critically high [facility]106 [facility] Comment on above: Performed By: #### B MP PHOS, MG #### [facility] [address] [address] [address] Uziel Reid Glucose [Mass/Vol] 124 mg/dL Critically high [facility]106 [facility] Comment on above: Performed By: #### B MP PHOS, MG #### [facility] [address] [address] [address] Uziel Reid POINT OF CARE GLUCOSEon Glucose [Mass/Vol] 127 mg/dL Critically high [facility]106 [facility] Comment on above: Performed By: #### B DAHIANA PHOS, MG #### [facility] [address] [address] [address] Uziel Reid XR KUB 1 VIEWon [...] ROBERT BASILIO Date: 2021-08-02 15:21 Normal [facility] XR KUB 1 VIEW KUB; 08/02/2021 [...] GERARDO NEELY Date: 2021-08-02 12:31 Normal [facility] CBC W MANUAL DIFFon 08-01-19 22 ATYPICAL LYMPH # Normal [facility] Comment on above: Performed By: #### B MP, PHOS, MG #### [facility] [address] [address] [address] Uziel Reid ATYPICAL LYMPH % Normal [facility] Comment on above: Performed By: #### B MP, PHOS, MG #### [facility] [address] [address] [address] Uziel Reid BAND # 0.7 103/ul Critically high 0.0-0.3 [facility] Comment on above: Performed By: #### B MP, PHOS, MG #### [facility] [address] [address] [address] Uziel Reid BAND % 9 % Critically high 0-5 [facility] Comment on above: Performed By: #### B MP, PHOS, MG #### [facility] [address] [address] [address] Uziel Reid BASOM # 0.00 103/ul Normal 0.00-0.10 [facility] Comment on above: Performed By: #### B MP, PHOS, MG #### [facility] [address] [address] [address] Uziel Reid BASOM % 0.0 % Critically low 0.2-2.0 The [facility] Comment on above: Performed By: #### B MP, PHOS, MG #### [facility] [address] [address] [address] Uziel Reid BLAST # Normal [facility] Comment on above: Performed By: #### B MP, PHOS, MG #### [facility] [address] [address] [address] Uziel Reid BLAST % Normal [facility] Comment on above: Performed By: #### B MP, PHOS, MG #### [facility] [address] [address] [address] Uziel Reid CORRECTED WBC Normal 4.0-11.0 [facility] Comment on above: Performed By: #### B MP, PHOS, MG #### [facility] [address] [address] [address] Uziel Reid EOS # 0.00 103/ul Normal 0.00-0.70 [facility] Comment on above: Performed By: #### B MP, PHOS, MG #### [facility] [address] [address] [address] Uziel Reid EOS% 0.0 % Critically low 0.9-7.[address] [facility] Comment on above: Performed By: #### B MP, PHOS, MG #### [facility] [address] [address] [address] Uziel Reid HCT 38.1 % Critically low 42.0-54.[address] [facility] Comment on above: Performed By: #### B MP, PHOS, MG #### [facility] [address] [address] [address] Uziel Reid HGB 12.2 g/dl Critically low 14.0-18.[address] [facility] Comment on above: Performed By: #### B MP, PHOS, MG #### [facility] [address] [address] [address] Uziel Reid LYMPHM # 0.66 103/ul Critically low 1.20-3.80 [facility] Comment on above: Performed By: #### B MP, PHOS, MG #### [facility] [address] [address] [address] Uziel Reid LYMPHM% 9.0 % Critically low 20.5-60.[address] [facility] Comment on above: Performed By: #### B MP, PHOS, MG #### [facility] [address] [address] [address] Uziel Reid MCH 29.8 pg Normal 25.9-34.0 [facility] Comment on above: Performed By: #### B MP, PHOS, MG #### [facility] [address] [address] [address] Uziel Reid MCHC 32.0 g/dl Normal 29.9-35.2 [facility] Comment on above: Performed By: #### B MP, PHOS, MG #### [facility] [address] [place] [address] Dr. Uziel Reid MCV 92.9 fL Normal 80.0-94.0 [facility] Comment on above: Performed By: #### B MP, PHOS, MG #### [facility] [address] [address] [address] Uziel Reid METAMYELOCYTE # Normal [facility] Comment on above: Performed By: #### B MP, PHOS, MG #### [facility] [address] [address] [address] Uziel Reid METAMYELOCYTE % Normal [facility] Comment on above: Performed By: #### B MP, PHOS, MG #### [facility] [address] [address] [address] Uziel Reid MONOM# 1.02 103/ul Critically high 0.30-0.80 [facility] Comment on above: Performed By: #### B MP, PHOS, MG #### [facility] [address] [address] [address] Uziel Reid MONOM% 14.0 % Critically high 1.7-12.0 [facility] Comment on above: Performed By: #### B MP, PHOS, MG #### [facility] [address] [address] [address] Uziel Reid MPV 9.9 fL Normal 9.5-13.5 [facility] Comment on above: Performed By: #### B MP, PHOS, MG #### [facility] [address] [address] [address] Uziel Reid MYELOCYTE # Normal [facility] Comment on above: Performed By: #### B MP, PHOS, MG #### [facility] [address] [address] [address] Uziel Reid MYELOCYTE % Normal [facility] Comment on above: Performed By: #### B MP, PHOS, MG #### [facility] [address] [address] [address] Uziel Reid NRBC Normal [facility] Comment on above: Performed By: #### B MP, PHOS, MG #### [facility] [address] [address] [address] Uziel Reid PLT 237 103/ul Normal 150-450 [facility] Comment on above: Performed By: #### B MP, PHOS, MG #### [facility] [address] [address] [address] Uziel Reid RBC 4.10 106/ul Critically low 4.70-6.10 [facility] Comment on above: Performed By: #### B MP, PHOS, MG #### [facility] [address] [address] [address] Uziel Reid RDW 13.5 % Normal 11.0-15.0 [facility] Comment on above: Performed By: #### B MP, PHOS, MG #### [facility] [address] [address] [address] Uziel Reid SEG # 4.96 103/ul Normal 1.40-6.50 [facility] Comment on above: Performed By: #### B MP, PHOS, MG #### [facility] [address] [address] [address] Uziel Reid SEG % 68.0 % Normal 43.0-75.0 [facility] Comment on above: Performed By: #### B MP, PHOS, MG #### [facility] [address] [place] [address] Dr. Uziel Reid WBC 7.3 103/ul Normal 4.0-11.0 [facility] Comment on above: Performed By: #### B MP, PHOS, MG #### [facility] [address] [place] [address] Dr. Uziel Reid POINT OF CARE GLUCOSEon Glucose [Mass/Vol] 158 mg/dL Critically high 74-106 [facility] Comment on above: Performed By: #### B MP, PHOS, MG #### [facility] [address] [place] [address] Dr. Uziel Reid PROF 14(COMP METB)on 022 Albumin [Mass/Vol] 2.4 g/dL Critically low 3.5-5.0 [facility] Comment on above: Performed By: #### C FERDINAND #### [facility] [address] [place] [address] Dr. Uziel Reid Albumin/Globulin [Mass ratio] 0.5 {ratio} Normal [facility] Comment on above: Performed By: #### C FERDINAND #### [facility] [address] [place] [address] Dr. Uziel Reid ALP [Catalytic activity/Vol] 84 U/L Normal 38-126 [facility] Comment on above: Performed By: #### C FERDINAND #### [facility] [address] [place] [address] Dr. Uziel Reid ALT [Catalytic activity/Vol] 26 U/L Normal 21-72 [facility] Comment on above: Performed By: #### Jesse STREETER #### [facility] [address] [place] [address] Dr. Uziel Reid Anion gap [Moles/Vol] 9.8 mmol/L Normal [facility] Comment on above: Performed By: #### Jesse STREETER #### [facility] [address] [place] [address] Dr. Uziel Reid AST [Catalytic activity/Vol] 17 U/L Normal 17-59 [facility] Comment on above: Performed By: #### C FERDINAND #### [facility] [address] [address] [address] Uziel Reid Bilirubin [Mass/Vol] 0.9 mg/dL Normal 0.2-1.3 [facility] Comment on above: Performed By: #### C FERDINAND #### [facility] [address] [place] [address] Dr. Uziel Reid Calcium [Mass/Vol] 8.9 mg/dL Normal 8.4-10.2 [facility] Comment on above: Performed By: #### C FERDINAND #### [facility] [address] [place] [address] Dr. Uziel Reid Chloride [Moles/Vol] 94 mmol/L Critically low 98-107 [facility] Comment on above: Performed By: #### C FERDINAND #### [facility] [address] [place] [address] Dr. Uziel Reid CO2 [Moles/Vol] 30.9 mmol/L Critically high 22.0-30.0 [facility] Comment on above: Performed By: #### C FERDINAND #### [facility] [address] [place] [address] Dr. Uziel Reid Creatinine [Mass/Vol] 1.21 mg/dL Normal 0.66-1.25 [facility] Comment on above: Performed By: #### C FERDINAND #### [facility] [address] [place] [address] Dr. Uziel Reid EGFR-AF [place] >60 Normal >=60 [facility] Comment on above: Performed By: #### C FERDINAND #### [facility] [address] [place] [address] Dr. Uziel Reid EGFR-NON AF [place] 57 mL/min/1.73m2 Critically low >=60 [facility] Comment on above: Performed By: #### C FERDINAND #### [facility] [address] [place] [address] Dr. Uziel Reid Globulin (S) [Mass/Vol] 4.5 g/dL Normal [facility] Comment on above: Performed By: #### C BCMAN #### [facility] [address] [place] [address] Dr. Uziel Reid Glucose [Mass/Vol] 166 mg/dL Critically high 74-106 [facility] Comment on above: Performed By: #### C BLAYNEMAN #### [facility] [address] [place] [address] Dr. Uziel Reid Potassium [Moles/Vol] 3.7 mmol/L Normal 3.4-5.0 [facility] Comment on above: Performed By: #### C FERDINAND #### [facility] [address] [place] [address] Dr. Uziel Reid Protein [Mass/Vol] 6.9 g/dL Normal 6.1-8.2 [facility] Comment on above: Performed By: #### C FERDINAND #### [facility] [address] [place] [address] Dr. Uziel Reid Sodium [Moles/Vol] 131 mmol/L Critically low 137-145 [facility] Comment on above: Performed By: #### C FERDINAND #### [facility] [address] [place] [address] Dr. Uziel Reid Urea nitrogen [Mass/Vol] 72.0 mg/dL Critically high 9.0-20.0 [facility] Comment on above: Performed By: #### C FERDINAND #### [facility] [address] [place] [address] Dr. Uziel Reid Urea nitrogen/Creatinine [Mass ratio] 59.5 mg/mg Normal [facility] Comment on above: Performed By: #### C FERDINAND #### [facility] [address] [place] [address] Dr. Uziel Reid XR KUB 1 VIEWon [...] by: ROBERT BASILIO Date: 2021-08-01 20:28 Normal [facility] XR KUB 1 VIEW EXAMINATION: XR [...] by: ROBERT BASILIO Date: 2021-08-01 13:26 Normal [facility] XR SMALL BOWEL FOLLOW THOUGH on 08-01-2021 XR SMALL BOWEL FOLLOW THOUGH EXAMINATION: XR SMALL BOWEL FOLLOW THOUGH HISTORY: Swollen abdomen COMPARISON: No relevant comparison available. FLUOROSCOPY TIME: Fluoro time - none. TECHNIQUE: Small bowel series was performed in the usual manner. No standards engineer abdominal radiograph was performed. Standard level fluoroscopic [...] by: ROBERT BASILIO Date: 2021-08-01 17:36 Normal [facility] POINT OF CARE GLUCOSEon 12-3 Glucose [Mass/Vol] 178 mg/dL Critically high 74-106 [facility] Comment on above: Performed By: #### C SARIKA #### [facility] [address] [address] [address] Uziel Reid Glucose [Mass/Vol] 146 mg/dL Critically high 74-106 [facility] Comment on above: Performed By: #### P OCGLUC #### [facility] [address] [place] [address] Dr. Uziel Reid BNPon 07-30-2021 Natriuretic peptide B (Bld) [Mass/Vol] 800.0 pg/mL Normal <=1,800.0 [facility] Comment on above: Performed By: #### B MP, PHOS, MG #### [facility] [address] [place] [address] Dr. Uziel Reid CBC AUTO DIFFon 07-30-2021 BASO # 0.0 103/ul Normal 0.0-0.1 [facility] Comment on above: Performed By: #### B MP, PHOS, MG #### [facility] [address] [place] [address] Dr. Uziel Reid Basophils/100 WBC (Bld) 0.1 % Critically low 0.2-2.0 [facility] Comment on above: Performed By: #### B MP, PHOS, MG #### [facility] [address] [place] [address] Dr. Uziel Reid EO # 0.0 103/ul Normal 0.0-0.7 [facility] Comment on above: Performed By: #### B MP, PHOS, MG #### [facility] [address] [place] [address] Dr. Uziel Reid Eosinophils/100 WBC (Bld) 0.1 % Critically low 0.9-7.0 [facility] Comment on above: Performed By: #### B MP, PHOS, MG #### [facility] [address] [place] [address] Dr. Uziel Reid Erythrocyte distribution width (RBC) [Ratio] 13.8 % Normal 11.0-15.0 [facility] Comment on above: Performed By: #### B MP, PHOS, MG #### [facility] [address] [place] [address] Dr. Uziel Reid Hematocrit (Bld) [Volume fraction] 35.1 % Critically low 42.0-54.0 [facility] Comment on above: Performed By: #### B MP, PHOS, MG #### [facility] [address] [place] [address] Dr. Uziel Reid Hemoglobin (Bld) [Mass/Vol] 10.8 g/dL Critically low 14.0-18.0 [facility] Comment on above: Performed By: #### B MP, PHOS, MG #### [facility] [address] [place] [address] Dr. Uziel Reid IG # 0.15 10e3/ul Critically high 0.00-0.03 [facility] Comment on above: Performed By: #### B MP, PHOS, MG #### [facility] [address] [place] [address] Dr. Uziel Reid IG % 0.9 % Critically high 0.0-0.5 [facility] Comment on above: Performed By: #### B MP, PHOS, MG #### [facility] [address] [place] [address] Dr. Uziel Reid LYMPH # 0.8 103/ul Critically low 1.2-3.8 [facility] Comment on above: Performed By: #### B MP, PHOS, MG #### [facility] [address] [place] [address] Dr. Uziel Reid Lymphocytes/100 WBC (Bld) 5.2 % Critically low 20.5-60.0 [facility] Comment on above: Performed By: #### B MP, PHOS, MG #### [facility] [address] [place] [address] Dr. Uziel Reid MANUAL DIFF REQ NO Normal [facility] Comment on above: Performed By: #### B MP, PHOS, MG #### [facility] [address] [place] [address] Dr. Uziel Reid MCH (RBC) [Entitic mass] 30.1 pg Normal 25.9-34.0 [facility] Comment on above: Performed By: #### B MP, PHOS, MG #### [facility] [address] [address] [address] Uziel Reid MCHC (RBC) [Mass/Vol] 30.8 g/dL Normal 29.9-35.2 [facility] Comment on above: Performed By: #### B MP, PHOS, MG #### [facility] [address] [place] [address] Dr. Uziel Reid MCV (RBC) [Entitic vol] 97.8 fL Critically high 80.0-94.0 [facility] Comment on above: Performed By: #### B MP, PHOS, MG #### [facility] [address] [place] [address] Dr. Uziel Reid MONO # 1.2 103/ul Critically high 0.3-0.8 [facility] Comment on above: Performed By: #### B MP, PHOS, MG #### [facility] [address] [place] [address] Dr. Uziel Reid Monocytes/100 WBC (Bld) 7.5 % Normal 1.7-12.0 [facility] Comment on above: Performed By: #### B MP, PHOS, MG #### [facility] [address] [place] [address] Dr. Uziel Reid NEUT # 14.0 103/ul Critically high 1.4-6.5 [facility] Comment on above: Performed By: #### B MP, PHOS, MG #### [facility] [address] [place] [address] Dr. Uziel Reid Neutrophils/100 WBC (Bld) 86.2 % Critically high 43.0-75.0 [facility] Comment on above: Performed By: #### B MP, PHOS, MG #### [facility] [address] [place] [address] Dr. Uziel Reid Platelet mean volume (Bld) [Entitic vol] 10.7 fL Normal 9.5-13.5 [facility] Comment on above: Performed By: #### B MP, PHOS, MG #### [facility] [address] [place] [address] Dr. Uziel Reid PLT 165 103/ul Normal 150-450 [facility] Comment on above: Performed By: #### B MP, PHOS, MG #### [facility] [address] [address] [address] Uziel Reid RBC 3.59 106/ul Critically low 4.70-6.10 [facility] Comment on above: Performed By: #### B MP, PHOS, MG #### [facility] [address] [place] [address] Dr. Uziel Reid WBC 16.2 103/ul Critically high 4.0-11.0 [facility] Comment on above: Performed By: #### B MP, PHOS, MG #### [facility] [address] [place] [address] Dr. Uziel Reid PROF CHEM 8 (BAS METB)on Anion gap [Moles/Vol] 8.9 mmol/L Normal [facility] Comment on above: Performed By: #### B MP, PHOS, MG #### [facility] [address] [place] [address] Dr. Uziel Reid Calcium [Mass/Vol] 7.4 mg/dL Critically low 8.4-10.2 [facility] Comment on above: Performed By: #### B MP, PHOS, MG #### [facility] [address] [place] [address] Dr. Uziel Reid Chloride [Moles/Vol] 96 mmol/L Critically low 98-107 [facility] Comment on above: Performed By: #### B MP, PHOS, MG #### [facility] [address] [place] [address] Dr. Uziel Reid CO2 [Moles/Vol] 30.0 mmol/L Normal 22.0-30.0 [facility] Comment on above: Performed By: #### B MP, PHOS, MG #### [facility] [address] [place] [address] Dr. Uziel Reid Creatinine [Mass/Vol] 1.12 mg/dL Normal 0.66-1.25 [facility] Comment on above: Performed By: #### B MP, PHOS, MG #### [facility] [address] [address] [address] Uziel Reid EGFR-AF [place] >60 Normal >=60 [facility] Comment on above: Performed By: #### B MP, PHOS, MG #### [facility] [address] [address] [address] Uziel Reid EGFR-NON AF [place] >60 Normal >=60 [facility] Comment on above: Performed By: #### B MP, PHOS, MG #### [facility] [address] [address] [address] Uziel Reid Glucose [Mass/Vol] 125 mg/dL Critically high 74-106 T [facility] Comment on above: Performed By: #### B MP, PHOS, MG #### [facility] [address] [address] [address] Uziel Reid Potassium [Moles/Vol] 3.9 mmol/L Normal 3.4-5.0 [facility] Comment on above: Performed By: #### B MP, PHOS, MG #### [facility] [address] [address] [address] Uziel Reid Sodium [Moles/Vol] 131 mmol/L Critically low 137-145 Th [facility] Comment on above: Performed By: #### B MP, PHOS, MG #### [facility] [address] [address] [address] Uziel Reid Urea nitrogen [Mass/Vol] 37.0 mg/dL Critically high 9.0-20.0 [facility] Comment on above: Performed By: #### B MP, PHOS, MG #### [facility] [address] [address] [address] Uziel Reid Urea nitrogen/Creatinine [Mass ratio] 33.0 mg/mg Normal [facility] Comment on above: Performed By: #### B MP, PHOS, MG #### [facility] [address] [address] [address] Uziel Reid XR ABD FLAT_UPon 07-30-2021 [...] by: ZHANE DUCKWORTH Date: 2021-07-30 09:08 Normal [facility] XR CHEST 2 Von 07-30-2021 XR [...] by: ZHANE DUCKWORTH Date: 2021-07-30 09:05 Normal [facility] POINT OF CARE GLUCOSEon 07-02 Glucose [Mass/Vol] 144 mg/dL Critically high 74-106 [facility] Comment on above: Performed By: #### C BCMAN #### [facility] [address] [address] [address] Uziel Reid Glucose [Mass/Vol] 147 mg/dL Critically high 74-106 [facility] Comment on above: Performed By: #### B MP, PHOS, MG #### [facility] [address] [address] [address] Uziel Reid AMYLASEon 07-28-2021 AMYL <30 Critically low 31-[address] [facility] Comment on above: Performed By: #### H STROPN #### [facility] [address] [address] [address] Uziel Reid CBC AUTO DIFFon 07-28-2021 BASO # 0.1 103/ul Normal 0.0-0.1 [facility] Comment on above: Performed By: #### B MP, PHOS, MG #### [facility] [address] [place] [address] Dr. Uziel Reid Basophils/100 WBC (Bld) 0.6 % Normal 0.2-2.0 [facility] Comment on above: Performed By: #### B MP, PHOS, MG #### [facility] [address] [place] [address] Dr. Uziel Reid EO # 0.2 103/ul Normal 0.0-0.7 [facility] Comment on above: Performed By: #### B MP, PHOS, MG #### [facility] [address] [place] [address] Dr. Uziel Reid Eosinophils/100 WBC (Bld) 1.8 % Normal 0.9-7.0 [facility] Comment on above: Performed By: #### B MP, PHOS, MG #### [facility] [address] [place] [address] Dr. Uziel Reid Erythrocyte distribution width (RBC) [Ratio] 13.0 % Normal 11.0-15.0 [facility] Comment on above: Performed By: #### B MP, PHOS, MG #### [facility] [address] [place] [address] Dr. Uziel Reid Hematocrit (Bld) [Volume fraction] 38.9 % Critically low 42.0-54.0 [facility] Comment on above: Performed By: #### B MP, PHOS, MG #### [facility] [address] [place] [address] Dr. Uziel Reid Hemoglobin (Bld) [Mass/Vol] 12.6 g/dL Critically low 14.0-18.0 [facility] Comment on above: Performed By: #### B MP, PHOS, MG #### [facility] [address] [place] [address] Dr. Uziel Reid IG # 0.05 10e3/ul Critically high 0.00-0.03 [facility] Comment on above: Performed By: #### B MP, PHOS, MG #### [facility] [address] [address] [address] Uziel Reid IG % 0.4 % Normal 0.0-0.5 [facility] Comment on above: Performed By: #### B MP, PHOS, MG #### [facility] [address] [address] [address] Uziel Reid LYMPH # 1.2 103/ul Normal 1.2-3.8 [facility] Comment on above: Performed By: #### B MP, PHOS, MG #### [facility] [address] [place] [address] Dr. Uziel Reid Lymphocytes/100 WBC (Bld) 10.0 % Critically low 20.5-60.0 [facility] Comment on above: Performed By: #### B MP, PHOS, MG #### [facility] [address] [place] [address] Dr. Uziel Reid MANUAL DIFF REQ NO Normal [facility] Comment on above: Performed By: #### B MP, PHOS, MG #### [facility] [address] [place] [address] Dr. Uziel Reid MCH (RBC) [Entitic mass] 30.3 pg Normal 25.9-34.0 [facility] Comment on above: Performed By: #### B MP, PHOS, MG #### [facility] [address] [place] [address] Dr. Uziel Reid MCHC (RBC) [Mass/Vol] 32.4 g/dL Normal 29.9-35.2 [facility] Comment on above: Performed By: #### B MP, PHOS, MG #### [facility] [address] [place] [address] Dr. Uziel Reid MCV (RBC) [Entitic vol] 93.5 fL Normal 80.0-94.0 [facility] Comment on above: Performed By: #### B MP, PHOS, MG #### [facility] [address] [place] [address] Dr. Uziel Reid MONO # 1.0 103/ul Critically high 0.3-0.8 [facility] Comment on above: Performed By: #### B MP, PHOS, MG #### [facility] [address] [place] [address] Dr. Uziel Reid Monocytes/100 WBC (Bld) 8.6 % Normal 1.7-12.0 [facility] Comment on above: Performed By: #### B MP, PHOS, MG #### [facility] [address] [place] [address] Dr. Uziel Reid NEUT # 9.2 103/ul Critically high 1.4-6.5 [facility] Comment on above: Performed By: #### B MP, PHOS, MG #### [facility] [address] [place] [address] Dr. Uziel Reid Neutrophils/100 WBC (Bld) 78.6 % Critically high 43.0-75.0 [facility] Comment on above: Performed By: #### B MP, PHOS, MG #### [facility] [address] [place] [address] Dr. Uziel Reid Platelet mean volume (Bld) [Entitic vol] 10.9 fL Normal 9.5-13.5 [facility] Comment on above: Performed By: #### B MP, PHOS, MG #### [facility] [address] [place] [address] Dr. Uziel Reid PLT 159 103/ul Normal 150-450 [facility] Comment on above: Performed By: #### B MP, PHOS, MG #### [facility] [address] [place] [address] Dr. Uziel Reid RBC 4.16 106/ul Critically low 4.70-6.10 [facility] Comment on above: Performed By: #### B MP, PHOS, MG #### [facility] [address] [place] [address] Dr. Uziel Reid WBC 11.8 103/ul Critically high 4.0-11.0 [facility] Comment on above: Performed By: #### B MP, PHOS, MG #### [facility] [address] [address] [address] ABD/PELVIS WO CONon [...] ZHANE DUCKWORTH Date: 2021-07-28 07:18 Normal [facility] CULTURE BLOODon 07-28-2021 Microscopic examination of blood, culture Culture Observations: NO GROWTH AT 5 DAYS. Normal [facility] Comment on above: Performed By: #### H PATRICA #### [facility] [address] [address] [address] Uziel Reid [facility] SARS-CoV-2 (COVID-19) RNA ALFONSO+probe Ql (Unsp spec) Not detected Normal NOT DETECTED [facility] Comment on above: Result Comment: This test is not yet approved or cleared by the [place] FDA. When there are no FDA-approved or cleared tests available, and other criteria are met, FDA can make tests available under an emergency access mechanism called an Emergency Use Authorization (EUA). The EUA for this test is supported by the [place] of Health and Human Service's (HHS's) declaration [...] SARS-CoV-2. Performed By: #### C FERDINAND #### [facility] [address] [place] [address] Dr. Uziel Reid LACTATE/LACTIC ACIDon 2020 Lactate [Moles/Vol] 1.2 mmol/L Normal 0.7-2.0 [facility] Comment on above: Performed By: #### B DAHIANA PHOS, MG #### [facility] [address] [place] [address] Dr. Uziel Reid LIPASEon 07-28-2021 Lipase [Catalytic activity/Vol] 32.0 U/L Normal 23.0-300.0 [facility] Comment on above: Performed By: #### H STROPN #### [facility] [address] [place] [address] Dr. Uziel Reid PROF 14(COMP METB)on 021 Albumin [Mass/Vol] 3.1 g/dL Critically low 3.5-5.0 [facility] Comment on above: Performed By: #### C FERDINAND #### [facility] [address] [place] [address] Dr. Uziel Reid Albumin/Globulin [Mass ratio] 0.8 {ratio} Normal [facility] Comment on above: Performed By: #### C FERDINAND #### [facility] [address] [address] [address] Uziel Reid ALP [Catalytic activity/Vol] 116 U/L Normal 38-126 [facility] Comment on above: Performed By: #### C FERDINAND #### [facility] [address] [address] [address] Uziel Reid ALT [Catalytic activity/Vol] 36 U/L Normal 21-72 [facility] Comment on above: Performed By: #### C FERDINAND #### [facility] [address] [address] [address] Uziel Reid Anion gap [Moles/Vol] 11.3 mmol/L Normal [facility] Comment on above: Performed By: #### C FERDINAND #### [facility] [address] [place] [address] Dr. Uziel Reid AST [Catalytic activity/Vol] 25 U/L Normal 17-59 [facility] Comment on above: Performed By: #### C FERDINAND #### [facility] [address] [address] [address] Uziel Reid Bilirubin [Mass/Vol] 0.9 mg/dL Normal 0.2-1.3 [facility] Comment on above: Performed By: #### C FERDINAND #### [facility] [address] [place] [address] Dr. Uziel Reid Calcium [Mass/Vol] 8.4 mg/dL Normal 8.4-10.2 [facility] Comment on above: Performed By: #### C FERDINAND #### [facility] [address] [address] [address] Uziel Reid Chloride [Moles/Vol] 97 mmol/L Critically low 98-107 [facility] Comment on above: Performed By: #### C FERDINAND #### [facility] [address] [address] [address] Uziel Reid CO2 [Moles/Vol] 29.4 mmol/L Normal 22.0-30.0 [facility] Comment on above: Performed By: #### C BCSARIKA #### [facility] [address] [address] [address] Uziel Reid Creatinine [Mass/Vol] 0.86 mg/dL Normal 0.66-1.25 [facility] Comment on above: Performed By: #### C BCSARIKA #### [facility] [address] [address] [address] Uziel Reid EGFR-AF [place] CITIZ[place] >60 Normal >=60 [facility] Comment on above: Performed By: #### C BCMAN #### [facility] [address] [address] [address] Uziel Reid EGFR-NON AF [place] CITIZ[place] >60 Normal >=60 [facility] Comment on above: Performed By: #### C FERDINAND #### [facility] [address] [address] [address] Uziel Reid Globulin (S) [Mass/Vol] 4.0 g/dL Normal [facility] Comment on above: Performed By: #### C FERDINAND #### [facility] [address] [place] [address] Dr. Uziel Reid Glucose [Mass/Vol] 181 mg/dL Critically high 74-106 [facility] Comment on above: Performed By: #### C FERDINAND #### [facility] [address] [place] [address] Dr. Uziel Reid Potassium [Moles/Vol] 3.7 mmol/L Normal 3.4-5.0 [facility] Comment on above: Performed By: #### C BCSARIKA #### [facility] [address] [place] [address] Dr. Uzeil Reid Protein [Mass/Vol] 7.1 g/dL Normal 6.1-8.2 [facility] Comment on above: Performed By: #### C BCSARIKA #### [facility] [address] [place] [address] Dr. Uziel Reid Sodium [Moles/Vol] 134 mmol/L Critically low 137-145 [facility] Comment on above: Performed By: #### C BCSARIKA #### [facility] [address] [address] [address] Uziel Reid Urea nitrogen [Mass/Vol] 18.0 mg/dL Normal 9.0-20.0 [facility] Comment on above: Performed By: #### C FERDINAND #### [facility] [address] [address] [address] Uziel Reid Urea nitrogen/Creatinine [Mass ratio] 20.9 mg/mg Normal [facility] Comment on above: Performed By: #### C FERDINAND #### [facility] [address] [address] [address] Uziel Reid XR CHEST 1 Von [...] by: SUPA STONE Date: 2021-07-28 06:45 Normal [facility] GLYCOHEMOGLOBIN A1Con 2020 ADA RECOMMENDATION ADA THERAPEUTIC TARGET 6.0 - 7.0 ACTION SUGGESTED > 7.0 Normal [facility] Comment on above: Performed By: #### B MP, PHOS, MG #### [facility] [address] [address] [address] Uziel Reid Glucose [Mass/Vol] 137 mg/dL Normal [facility] Comment on above: Performed By: #### B MP, PHOS, MG #### [facility] [address] [address] [address] Uziel Reid HbA1c (Bld) [Mass fraction] 6.4 % Critically high <=6.0 [facility] Comment on above: Performed By: #### B MP, PHOS, MG #### [facility] [address] [address] [address] Uziel Reid Vital Signs Date Time Vital Sign Value Performing Clinician Facility 09-10-2024 14:00-0500 Diastolic blood pressure 72 mm[Hg] Annette Stonez [employer] Work Phone: [facility] 09-10-2024 14:00-0500 Systolic blood pressure 122 mm[Hg] Annette Codyholz [employer] Work Phone: [facility] 09-10-2024 13:20-0500 Body mass index (BMI) [Ratio] 25.8 kg/m2 Annettevaughn Stonez [employer] Work Phone: [facility] 09-10-2024 13:20-0500 Body temperature 98.29 [degF] Annette Codyholz [employer] Work Phone: [facility] 09-10-2024 13:20-0500 Body weight 85.09 kg Annettevaughn Rossholz [employer] Work Phone: [facility] 09-10-2024 13:20-0500 Heart rate 56 /min Annettevaughn Rossholz [employer] Work Phone: [facility] 09-10-2024 13:20-0500 Respiratory rate 18 /min Annette Codyholz [employer] Work Phone: [facility] 09-10-2024 13:20-0500 SaO2% (BldA) [Mass fraction] 96 % Annette Stonez [employer] Work Phone: [facility] 06-14-2024 13:07-0500 Body height 181.6 cm Annette Stonez [employer] Work Phone: [facility] 06-14-2024 13:07-0500 Body mass index (BMI) [Ratio] 25.31 kg/m2 Annette Codyholz [employer] Work Phone: [facility] 06-14-2024 13:07-0500 Body temperature 98.71 [degF] Annette Codyholz [employer] Work Phone: [facility] 06-14-2024 13:07-0500 Body weight 83.46 kg Annette Codyholz [employer] Work Phone: [facility] 06-14-2024 13:07-0500 Diastolic blood pressure 82 mm[Hg] Annette Aichholz [employer] Work Phone: [facility] 06-14-2024 13:07-0500 Heart rate 59 /min Annette Aichholz [employer] Work Phone: [facility] 06-14-2024 13:07-0500 Respiratory rate 18 /min Annette Aichholz [employer] Work Phone: [facility] 06-14-2024 13:07-0500 SaO2% (BldA) [Mass fraction] 97 % Annette Aichholz [employer] Work Phone: [facility] 06-14-2024 13:07-0500 Systolic blood pressure 118 mm[Hg] Annette Aichholz [employer] Work Phone: [facility] 05-14-2024 14:02-0400 Body height 181.6 cm Annette Aichholz [employer] Work Phone: [facility] 05-14-2024 14:02-0400 Body mass index (BMI) [Ratio] 25.47 kg/m2 Annette Aichholz [employer] Work Phone: [facility] 05-14-2024 14:02-0400 Body temperature 98.1 [degF] Annette Aichholz [employer] Work Phone: [facility] 05-14-2024 14:02-0400 Body weight 84.01 kg Annette Aichholz [employer] Work Phone: [facility] 05-14-2024 14:02-0400 Diastolic blood pressure 62 mm[Hg] Annette Aichholz [employer] Work Phone: [facility] 05-14-2024 14:02-0400 Heart rate 62 /min Annette Aichholz [employer] Work Phone: [facility] 05-14-2024 14:02-0400 Respiratory rate 18 /min Annette Aichholz [employer] Work Phone: [place] [id number] 14:02-0400 SaO2% (BldA) [Mass fraction] 94 % Annette Nahid [employer] Work Phone: [facility] 05-14-2024 14:02-0400 Systolic blood pressure 126 mm[Hg] Annette Nahid [employer] Work Phone: [facility] 04-11-2024 15:26-0400 Body height 180.3 cm Christopher Meek DO Work Phone: [facility] 04-11-2024 15:26-0400 Body mass index (BMI) [Ratio] 25.86 kg/m2 Christopher Meek DO Work Phone: [facility] 04-11-2024 15:26-0400 Body weight 84.1 kg Christopher Meek DO Work Phone: [facility] 04-11-2024 15:26-0400 Diastolic blood pressure 79 mm[Hg] Christopher Meek DO Work Phone: [facility] 04-11-2024 15:26-0400 Heart rate 78 /min Christopher Meek DO Work Phone: [facility] 04-11-2024 15:26-0400 SaO2% (BldA) [Mass fraction] 98 % Christopher Meek DO Work Phone: [facility] 04-11-2024 15:26-0400 Systolic blood pressure 136 mm[Hg] Christopher Meek DO Work Phone: [facility] 09-12-2023 13:34-0500 Body height 181.6 cm Annette Nahid [employer] Work Phone: [facility] 09-12-2023 13:34-0500 Body mass index (BMI) [Ratio] 25.44 kg/m2 Annette Whitfield [employer] Work Phone: [facility] 09-12-2023 13:34-0500 Body temperature 96.6 [degF] Annette Whitfield [employer] Work Phone: [facility] 09-12-2023 13:34-0500 Body weight 83.92 kg Annette Whitfield [employer] Work Phone: [facility] 09-12-2023 13:34-0500 Diastolic blood pressure 76 mm[Hg] Annettevaughn Maierhholz [employer] Work Phone: [facility] 09-12-2023 13:34-0500 Heart rate 83 /min Annettevaughn Rossholz [employer] Work Phone: [facility] 09-12-2023 13:34-0500 Respiratory rate 18 /min Annette Darrionhholz [employer] Work Phone: [facility] 09-12-2023 13:34-0500 SaO2% (BldA) [Mass fraction] 94 % Annette Rossholz [employer] Work Phone: [facility] 09-12-2023 13:34-0500 Systolic blood pressure 138 mm[Hg] Annette Codyholz [employer] Work Phone: [facility] 10-06-2022 13:03-0500 Body height 172.7 cm Ailyn Baez DO Work Phone: [facility] 10-06-2022 13:03-0500 Body mass index (BMI) [Ratio] 29.44 kg/m2 Ailyn Baez DO Work Phone: [facility] 10-06-2022 13:03-0500 Body temperature 97.11 [degF] Ailyn Baez DO Work Phone: [facility] 10-06-2022 13:03-0500 Body weight 87.82 kg Ailyn Baez DO Work Phone: [facility] 10-06-2022 13:03-0500 Diastolic blood pressure 82 mm[Hg] Ailyn Baez DO Work Phone: [facility] 10-06-2022 13:03-0500 Heart rate 58 /min Ailyn Baez DO Work Phone: [facility] 10-06-2022 13:03-0500 Respiratory rate 16 /min Ailyn Baez DO Work Phone: [facility] 10-06-2022 13:03-0500 SaO2% (BldA) [Mass fraction] 94 % Ailyn Baez DO Work Phone: [facility] 10-06-2022 13:03-0500 Systolic blood pressure 161 mm[Hg] Ailyn Baez DO Work Phone: [facility] 08-27-2022 13:35-0500 Body height 180.34 cm Keira Haile Other [employer] Other 08-27-2022 13:35-0500 Body mass index (BMI) [Ratio] 27 kg/m2 Keira Haile Other [employer] Other 08-27-2022 13:35-0500 Body temperature 97.9 [degF] Keira Haile Other [employer] Other 08-27-2022 13:35-0500 Body weight 87.82 kg Keira Mic Other [employer] Other 08-27-2022 13:35-0500 Diastolic blood pressure 77 mm[Hg] Keira Haile Other [employer] Other 08-27-2022 13:35-0500 Respiratory rate 18 /min Keira Haile Other [employer] Other 08-27-2022 13:35-0500 SaO2% (BldA) [Mass fraction] 97 % Keira Haile Other [employer] Other 08-27-2022 13:35-0500 Systolic blood pressure 156 mm[Hg] Keira Haile Other [place] [employer] Other 12-08-2021 09:55-0400 Body height 172.72 cm Ailyn J Ayad Work Phone: [facility] Work Phone: 12-08-2021 09:55-0400 Body mass index (BMI) [Ratio] 29.19 kg/m2 Ailyn Kang Baez Work Phone: [facility] Work Phone: 12-08-2021 09:55-0400 Body surface area Derived from formula 2.01 m2 Ailyn Baez Work Phone: [facility] Work Phone: 12-08-2021 09:55-0400 Body temperature 97.3 [degF] Ailyn Baez Work Phone: [facility] [facility] Work Phone: 12-08-2021 09:55-0400 Body weight 87.09 kg Ailyn J Ayad Work Phone: [facility] Work Phone: 12-08-2021 09:55-0400 Diastolic blood pressure 69 mm[Hg] Ailyn Baez Work Phone: [facility] Work Phone: 12-08-2021 09:55-0400 Heart rate 63 /min Ailyn Baez Work Phone: [facility] Work Phone: 12-08-2021 09:55-0400 Respiratory rate 16 /min Ailyn Baez Work Phone: [facility] Work Phone: 12-08-2021 09:55-0400 SaO2% (BldA) [Mass fraction] 93 % Ailyn Baez Work Phone: [facility] [address] Work Phone: 12-08-2021 09:55-0400 Systolic blood pressure 133 mm[Hg] Ailyn Baez Work Phone: [facility] Work Phone: 10-14-2021 11:17-0400 Body height 172.72 cm Ailyn Baez Work Phone: [facility] Work Phone: 10-14-2021 11:17-0400 Body mass index (BMI) [Ratio] 29.04 kg/m2 Ailyn Baez Work Phone: [facility] [address] Work Phone: 10-14-2021 11:17-0400 Body surface area Derived from formula 2 m2 Ailyn Baez Work Phone: [facility] [address] Work Phone: 10-14-2021 11:17-0400 Body temperature 97.2 [degF] Ailyn Baez Work Phone: [facility] [address] Work Phone: 10-14-2021 11:17-0400 Body weight 86.64 kg Ailyn Baez Work Phone: [facility] [address] Work Phone: 10-14-2021 11:17-0400 Diastolic blood pressure 70 mm[Hg] Ailyn Baez Work Phone: -[facility] [address] Work Phone: 10-14-2021 11:17-0400 Heart rate 73 /min Ailyn Baez Work Phone: [facility] [address] Work Phone: 10-14-2021 11:17-0400 Respiratory rate 16 /min Ailyn Kang Baez Work Phone: [facility] 170 Work Phone: 10-14-2021 11:17-0400 SaO2% (BldA) [Mass fraction] 92 % Ailyn Baez Work Phone: [facility] 170 Work Phone: 10-14-2021 11:17-0400 Systolic blood pressure 120 mm[Hg] Ailyn Baez Work Phone: [facility] 170 Work Phone: 10-07-2021 13:28-0500 Body height 172.72 cm Ailyn Baez Work Phone: [facility] Work Phone: 10-07-2021 13:28-0500 Body mass index (BMI) [Ratio] 29.21 kg/m2 Ailyn Baez Work Phone: [facility] Work Phone: 10-07-2021 13:28-0500 Body surface area Derived from formula 2.01 m2 Ailyn Baez Work Phone: [facility] Work Phone: 10-07-2021 13:28-0500 Body temperature 95.7 [degF] Ailyn Baez Work Phone: [facility] Work Phone: 10-07-2021 13:28-0500 Body weight 87.15 kg Ailyn Baez Work Phone: [facility] Work Phone: 10-07-2021 13:28-0500 Diastolic blood pressure 78 mm[Hg] [facility] Work Phone: 10-07-2021 13:28-0500 Heart rate 67 /min [facility] Work Phone: 10-07-2021 13:28-0500 Respiratory rate 16 /min Ailyn Baez Work Phone: [facility] Work Phone: 10-07-2021 13:28-0500 SaO2% (BldA) [Mass fraction] 94 % Ailyn Baez Work Phone: [facility] Work Phone: 10-07-2021 13:28-0500 Systolic blood pressure 138 mm[Hg] Ailyn Baez Work Phone: [facility] Work Phone: 09-09-2021 11:34-0500 Body height 172.72 cm Ailyn Baez [facility]: [facility] Work Phone: 09-09-2021 11:34-0500 Body mass index (BMI) [Ratio] 30.71 kg/m2 Ailyn Baez Work Phone: [facility] Work Phone: 09-09-2021 11:34-0500 Body surface area Derived from formula 2.05 m2 Ailyn Baez Work Phone: [facility] Work Phone: 09-09-2021 11:34-0500 Body temperature 97.5 [degF] Ailyn Kapadia [facility]aez [facility]: [facility] Work Phone: 09-09-2021 11:34-0500 Body weight 91.63 kg Ailyn [facility]adia [facility] Work Phone: 09-09-2021 11:34-0500 Diastolic blood pressure 80 mm[Hg] Ailyn Kapadia Ayad Work Phone: [facility] Work Phone: 09-09-2021 11:34-0500 Heart rate 94 /min Ailyn Kapadia Ayad Work Phone: [facility] Work Phone: 09-09-2021 11:34-0500 Respiratory rate 16 /min Ailyn Kapadia Baez [facility] Work Phone: 09-09-2021 11:34-0500 SaO2% (BldA) [Mass fraction] 90 % Ailyn Kapadia Ayad Work Phone: [facility] Work Phone: 09-09-2021 11:34-0500 Systolic blood pressure 130 mm[Hg] Ailyn J Ayad Work Phone: [facility] Work Phone: Encounters Encounter Date Encounter Type Care Provider Facility Start: 09-19-2024 End: 09-19-2024 Clinisync Result Encounter Annette Whitfield NP Work Phone: [facility] Unsolicited Start: 09-19-2024 End: 09-19-2024 Clinisync Result Encounter Annette Whitfield NP Work Phone: [facility] Unsolicited Start: 09-19-2024 End: 09-19-2024 Orders Only Annette Nahid [employer] Work Phone: [facility] Comment on above: Elevated alkaline ph osphatase level (Primary Dx) Start: 09-10-2024 End: 09-10-2024 Bamboo flowsheet Annette Nahid [employer] Work Phone: [facility] Start: 09-10-2024 End: 09-10-2024 Bamboo flowsheet Annette Nahid [employer] Work Phone: [facility] Start: 09-10-2024 End: 09-10-2024 Office outpatient visit 25 minutes Annette Nahid [employer] Work Phone: [facility] Comment on above: Primary hypertension (CMS/HCC) (Primary Dx); Chronic obstructive pulmonary disease, unspecified (CMS/HCC); Type 2 diabetes mellitus without complications (CMS/HCC); Obstructive sleep apnea, adult; 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); Edema of both lower extremities; BMI 25.0-25.9,adult; Mixed hyperlipidemia (CMS/HCC); Screening for prostate cancer; B12 deficiency Start: 09-10-2024 End: 09-10-2024 ambulatory ANNETTE NAHID Not Available Start: 08-31-2024 End: 08-31-2024 Bamboo flowsheet Fabiola Alas AUD Work Phone: [facility] Start: 08-31-2024 End: 08-31-2024 Bamboo flowsheet Fabiola Alas AUD Work Phone: [facility] Start: 08-31-2024 End: 08-31-2024 Patient encounter procedure Fabiola Alas AUD Work Phone: [facility] Comment on above: Sensorineural hearin g loss, bilateral (Primary Dx) Start: 08-31-2024 End: 08-31-2024 ambulatory FABIOLA ALAS Not Available Start: 06-14-2024 End: 06-14-2024 Bamboo flowsheet Annette Nahid [employer] Work Phone: [facility] Start: 06-14-2024 End: 06-14-2024 Bamboo flowsheet Annette Nahid [employer] Work Phone: [facility] Start: 06-14-2024 End: 06-14-2024 ambulatory ANNETTE NAHID Not Available Start: 06-14-2024 End: 06-14-2024 Patient encounter procedure Annette Rosschrystal [employer] Work Phone: [facility] Comment on above: Encounter for subseq uent annual wellness visit (AWV) in Medicare patient (Primary Dx); Obstructive sleep apnea, adult; Chronic obstructive pulmonary disease, unspecified COPD type ([facility]/HCC); 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 ([facility]); Primary hypertension ([facility]); Benign prostatic hyperplasia with weak urinary stream; BMI 25.0-25.9,adult; Type 2 diabetes mellitus without complication, without long-term current use of insulin ([facility]); Mixed hyperlipidemia ([facility]); Edema of both lower extremities; Essential (primary) hypertension ([facility]); Leg swelling; Pre-diabetes; Pleural effusion Start: 05-16-2024 End: 05-16-2024 ambulatory YUNG VALLADARESER Not Available Start: 05-16-2024 End: 05-16-2024 Patient encounter procedure Yung Mendes Cher[address] [employer] Work Phone: [facility] Comment on above: Seborrheic keratosis of scalp; Inflamed seborrheic keratosis Start: 05-16-2024 End: 05-16-2024 Bamboo flowsheet Yung A Felter [address] [employer] COOK Work Phone: [facility] Start: 05-16-2024 End: 05-16-2024 Bamboo flowsheet Yung A Felter [address] [employer] COOK Work Phone: [facility] Start: 05-14-2024 End: 05-14-2024 Bamboo flowsheet Annette Whitfield [employer] Work Phone: [facility] Start: 05-14-2024 End: 05-14-2024 Bamboo flowsheet Annette Aichholz [employer] Work Phone: [facility] Start: 05-14-2024 End: 05-14-2024 Office outpatient visit 10 minutes Annette Aichholz [employer] Work Phone: [facility] Comment on above: Seborrheic keratosis of scalp (Primary Dx) Start: 05-14-2024 End: 05-14-2024 ambulatory ANNETTE AICHHOLZ Not Available Start: 04-16-2024 End: 04-16-2024 ambulatory [facility] Start: 04-11-2024 End: 04-11-2024 Office outpatient new 45 minutes Christopher Meek DO Work Phone: [facility] [address] Comment on above: Cognitive impairment (Primary Dx); Family history of dementia Start: 04-11-2024 End: 04-11-2024 ambulatory CHRISTOPHER MEEK Not Available Start: 04-11-2024 End: 04-11-2024 Bamboo flowsheet Christopher Meek DO Work Phone: [facility] [address] Start: 04-11-2024 End: 04-11-2024 Bamboo flowsheet Christopher Meek DO Work Phone: [address] Start: 03-13-2024 End: 03-13-2024 ambulatory [...] Available Start: 09-12-2023 Bamboo flowsheet Annette Aichholz [employer] Work Phone: [facility] Start: 09-12-2023 Bamboo flowsheet Annette Rosscarolinayadi [employer]PATCHER Work Phone: [facility] Start: 09-12-2023 End: 09-12-2023 Office outpatient visit 25 minutes Annette Darrionnataliechrystal [employer] Work Phone: [facility] Comment on above: Edema of both lower extremities (Primary Dx); Type 2 diabetes mellitus without complication, without long-term current use of insulin (CMS/HCC); BMI 25.0-25.9,adult; Chronic obstructive pulmonary disease, unspecified COPD type (CMS/HCC); Primary hypertension (CMS/HCC); Obstructive sleep apnea, adult; Leg swelling; Essential (primary) hypertension (CMS/HCC); B12 deficiency; Benign prostatic hyperplasia with weak urinary stream; 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); Mixed hyperlipidemia (CMS/HCC) Start: 09-12-2023 End: 09-12-2023 ambulatory ANNETTE RAHATZ Not Available Start: 09-05-2023 End: 09-05-2023 Clinical Support Annalee Hernández [facility] Work Phone: [facility] Comment on above: 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) Start: 04-26-2023 End: 04-28-2023 ambulatory [facility] Start: 02-07-2023 End: 02-07-2023 Emergency department patient visit Marilyn Alvarado Facility:[facility] Start: 10-06-2022 End: 10-06-2022 ambulatory AILYN Kapadia [facility] Start: 10-06-2022 End: 10-06-2022 Encounter for general adult medical examination without abnormal findings AILYN Kapadia [facility] Start: 10-06-2022 End: 10-06-2022 Patient encounter procedure Ailyn Baez DO Work Phone: [facility] Comment on above: Primary hypertension (Primary Dx); Hypercholesteremia; Routine general medical examination at a health care facility; Chronic obstructive pulmonary disease, unspecified COPD type ([facility]/HCC); Type 2 diabetes mellitus without complication, without long-term current use of insulin ([facility]); Leg swelling; Acute midline low back pain without sciatica; Benign prostatic hyperplasia with weak urinary stream; 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 Start: 10-06-2022 End: 10-06-2022 Patient encounter status Ailyn Baez DO Work Phone: [facility] Work Phone: Start: 08-27-2022 Rx Renewal Ailyn Darling er Work Phone: [facility] Work Phone: Start: 08-27-2022 End: 08-27-2022 ambulatory Keira Haile Other [employer] Other Start: 08-27-2022 Office outpatient ne w 20 minutes Keira Haile [facility] [place] Start: 03-03-2022 AUDIT Ailyn Darling er Work Phone: [facility] Work Phone: Start: 12-08-2021 Office outpatient vi sit 25 minutes Ailyn Baez Work Phone: [facility] [employer] Work Phone: Start: 10-14-2021 Office consultation new/estab patient 60 min Ailyn Baez Work Phone: [facility] Work Phone: Start: 10-07-2021 Adv care pln tlkd & alt dcsn maker docd Ailyn Baez Work Phone: [facility] Work Phone: Start: 09-21-2021 ambulatory IP SURGERY TRA FLORI CONSULT Facility:[facility] Start: 09-14-2021 AUDIT Ailyn Aarongn er Work Phone: [facility] Work Phone: Start: 09-09-2021 Office outpatient ne w 30 minutes Ailyn Kapadia Ayad Work Phone: [facility] Work Phone: Start: 08-27-2021 End: 08-27-2021 ambulatory UNKNOWN PROVIDER Facility:[facility] Start: 08-26-2021 ambulatory NA LERNERNJ Facility: [facility] Start: 08-25-2021 End: 08-28-2021 Evaluation and management of inpatient NA MELLO [facility] Start: 08-25-2021 ambulatory UNKNOWN PROVIDER [facility] Start: 08-22-2021 End: 08-22-[address] RADHA CHAPMAN Facility:[facility] Start: 08-18-2021 End: 08-19-[address] NARCISO GRAJEDA Facility:[facility] Start: 07-28-2021 End: 08-10-2021 Evaluation and management of inpatient URBANO VERMA Facility:[facility] Start: 06-09-2021 End: 06-10-2021 ambulatory ALEX SEAMAN Facility:[facility] Start: 03-18-2021 End: 03-19-2021 ambulatory ALEX SEAMAN Facility:[facility] Start: 09-30-2020 End: 10-01-[address] CELIA ESPARZA REQUEST Facility:[facility] Start: 09-02-2020 End: 09-03-2020 ambulatory ALEX SEAMAN Facility: Procedures Date Procedure Procedure Detail Performing Clinician Start: 09-19-2024 [facility] UA (CLEAN/CATCH) MICROSCOPIC IF INDICATE Annette Whitfield [employer] Work Phone: Start: 09-10-2024 Hemoglobin glycosyla yuniel a1c Annette Whitfield [employer] Work Phone: Start: 05-16-2024 CRYOTHERAPY SKIN LESION Yung Nicole [address] [employer] COOK Work Phone: Start: 08-05-2021 Insertion of Infusio n Device into Superior Vena Cava, Percutaneous Approach DR NARCISO GRAJEDA Start: 08-05-2021 Introduction of Nutritional Substance into Central Vein, Percutaneous Approach DR NARCISO GRAJEDA Start: 07-28-2021 Resection of Appendi x, Percutaneous Endoscopic Approach DR NARCISO GRAJEDA Appendectomy Ailyn J Elton solorio Work Phone: Comment on above: 07/28/2021; Colonoscopy Ailyn Kang Conde r Work Phone: Hernia repair Ailyn Darling sam Work Phone: Plan of Treatment Date Care Activity Detail Author Start: 09-01-2025 Glaucoma screening Diabetes: Retinopathy Screening [facility] Start: 2025 End: 2025 Patient encounter procedure 2025 1:00 PM EST Office Visit [facility] [address] [place] [phone] Annette Whitfield NP [address] [place] [phone] [facility] Start: 06-14-2025 Medicare Annual Wellness (AWV) Medicare Annual Wellness (AWV) [facility] Start: 03-10-2025 Hemoglobin A1c measurement Diabetes: Hemoglobin A1C [facility] Start: 12-13-2024 Urine screening for protein Diabetes: Urine Protein Screening [facility] Start: 12-10-2024 End: 12-10-2024 Patient encounter procedure 12/10/2024 1:00 PM EDT Office Visit [facility] [address] [place] [phone] Annette Whitfield NP [address] [place] [phone] [facility] Start: 10-17-2024 End: 09-19-2025 Gamma glutamyl transferase [Enzymatic activity/volume] in Serum or Plasma Gamma GT Lab Routine Elevated alkaline phosphatase level Expected: 10/17/2024 (Approximate), Expires: 09/19/2025 [facility] Work Phone: Comment on above: Expected: 10/17/2024 (Approximate), Expi res: 09/19/2025 Start: 10-17-2024 End: 09-19-2025 Hepatic function 2000 panel - Serum or Plasma Hepatic function panel Lab Routine Elevated alkaline phosphatase level Expected: 10/17/2024 (Approximate), Expires: 09/19/2025 [facility] Comment on above: Expected: 10/17/2024 (Approximate), Expi res: 09/19/2025 Start: 09-15-2024 Hemoglobin A1c measurement Diabetes: Hemoglobin A1C [facility] Start: 09-10-2024 End: 09-10-2025 CBC W Auto Differential panel - Blood CBC and differential Lab Routine Chronic obstructive pulmonary disease, unspecified (CMS/HCC) Obstructive sleep apnea, adult B12 deficiency Expected: 09/10/2024 (Approximate), Expires: 09/10/2025 [facility] Work Phone: Comment on above: Expected: 09/10/2024 (Approximate), Expi res: 09/10/2025 Start: 09-10-2024 End: 09-10-2025 Cobalamin (Vitamin B12) [Mass/volume] in Serum or Plasma Vitamin B12 Lab Routine B12 deficiency Expected: 09/10/2024 (Approximate), Expires: 09/10/2025 [facility] Comment on above: Expected: 09/10/2024 (Approximate), Expi res: 09/10/2025 Start: 09-10-2024 End: 09-10-2025 Comprehensive metabolic 2000 panel - Serum or Plasma Comprehensive metabolic panel Lab Routine Type 2 diabetes mellitus without complications (CMS/HCC) 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) Primary hypertension (CMS/HCC) Mixed hyperlipidemia (CMS/HCC) Expected: 09/10/2024 (Approximate), Expires: 09/10/2025 [facility] Comment on above: Expected: 09/10/2024 (Approximate), Expi res: 09/10/2025 Start: 09-10-2024 End: 09-10-2025 Lipid 1996 panel - Serum or Plasma Lipid panel Lab Routine Mixed hyperlipidemia (CMS/HCC) Expected: 09/10/2024 (Approximate), Expires: 09/10/2025 [facility] Comment on above: Expected: 09/10/2024 (Approximate), Expi res: 09/10/2025 Start: 09-10-2024 End: 09-10-2025 Microalbumin/Creatinine panel in random Urine Microalbumin / creatinine, urine ratio Lab Routine Type 2 diabetes mellitus without complications (CMS/HCC) Primary hypertension (CMS/HCC) Expected: 09/10/2024 (Approximate), Expires: 09/10/2025 [facility] Comment on above: Expected: 09/10/2024 (Approximate), Expi res: 09/10/2025 Start: 09-10-2024 End: 09-10-2025 Prostate specific Ag [Mass/volume] in Serum or Plasma PSA Lab Routine Screening for prostate cancer Expected: 09/10/2024 (Approximate), Expires: 09/10/2025 [facility] Comment on above: Expected: 09/10/2024 (Approximate), Expi res: 09/10/2025 Start: 09-10-2024 End: 09-10-2025 Urinalysis complete panel - Urine Urinalysis with reflex microscopic (clean catch) Lab Routine Type 2 diabetes mellitus without complications (CMS/HCC) Primary hypertension (CMS/HCC) Expected: 09/10/2024 (Approximate), Expires: 09/10/2025 [facility] Comment on above: Expected: 09/10/2024 (Approximate), Expi res: 09/10/2025 Start: 09-10-2024 End: 09-10-2024 Patient encounter procedure [facility] Comment on above: Obstructive sleep apnea, adult (Primary Dx); Chronic obstructive pulmonary disease, unspecified (CMS/HCC); Type 2 diabetes mellitus without complications (CMS/HCC); 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); Primary hypertension (CMS/HCC); Edema of both lower extremities; BMI 25.0-25.9,adult; Mixed hyperlipidemia (CMS/HCC); Screening for prostate cancer; B12 deficiency Start: 08-31-2024 End: 08-31-2024 Patient encounter procedure 08/31/2024 1:45 PM EST Office Visit [facility] [address] [place] [address] Fabiola Alas, AUD [address] [place] [address] Arrived [facility] Comment on above: Arrived Start: 06-15-2024 Hemoglobin A1c measurement Diabetes: Hemoglobin A1C [facility] Start: 06-14-2024 End: 06-14-2025 XR Chest 2 Views XR chest 2 views Imaging Routine Pleural effusion Expected: 06/14/2024 (Approximate), Expires: 06/14/2025 [facility] Work Phone: Comment on above: Expected: 06/14/2024 (Approximate), Expi res: 06/14/2025 Start: 06-14-2024 End: 06-14-2024 Patient encounter procedure 06/14/2024 1:00 PM EST Office Visit [facility] [address] [place] [phone] Annette Whitfield NP [address] [place] [phone] [facility] Start: 06-04-2024 End: 06-04-2024 Patient encounter procedure 06/04/2024 1:00 PM EST Office Visit [facility] [place] [address] [place] [phone] Flavia Rees NP [address] [place] [phone] [facility] [place] [address] [facility] Start: 05-14-2024 End: 05-14-2024 Patient encounter procedure 05/14/2024 2:00 PM EDT Office Visit [facility] [address] [place] [phone] Annette Whitfield, KELL [address] [place] [phone] Arrived [facility] Comment on above: Arrived Start: 04-23-2024 End: 04-23-2024 Patient encounter procedure 04/23/2024 9:30 AM EDT Office Visit [facility] [address] [facility] [place] [phone] Fantasma Branham, PhD [address] [place], [place] [phone] [facility] Start: 04-11-2024 End: 04-11-2024 Patient encounter procedure 04/11/2024 3:30 PM EDT Office Visit [facility] [place] [address] [place] [address] Sohan Eden, DO [address] [place], [place] [id number] [facility] Comment on above: Arrived Start: 04-01-2024 Influenza vaccination Influenza Vaccine (#1) [facility] Start: 12-12-2023 End: 12-12-2023 Patient encounter procedure 12/12/2023 1:00 PM EDT Office Visit [facility] [address] [place] [address] Annette Whitfield, KELL [address] [place] [address] [facility] Start: 10-11-2023 End: 09-12-2024 Basic metabolic 1998 panel - Serum or Plasma Basic metabolic panel Lab Routine Edema of both lower extremities Expected: 10/11/2023 (Approximate), Expires: 09/12/2024 [facility] Work Phone: Comment on above: Expected: 10/11/2023 (Approximate), Expi res: 09/12/2024 Start: 10-07-2023 Medicare Annual Wellness (AWV) Medicare Annual Wellness (AWV) [facility] Start: 09-23-2023 Pneumococcal Vaccine: 65+ Years (2 - PPSV23 or PCV20) Pneumococcal Vaccine: 65+ Years (2 - PPSV23 or PCV20) [facility] Comment on above: Postponed from 2002 (Other Patient Reasons) Start: 09-21-2023 End: 09-21-2023 Clinical Support 09/21/2023 11:00 AM EST Clinical Support [facility] [address] [place] [phone] Annalee Hernández, [facility] [address] [facility] [place] [address] [facility] Start: 09-12-2023 End: 09-12-2023 Patient encounter procedure [facility] Comment on above: Type 2 diabetes mellitus without complic ation, without long-term current use of insulin (CMS/HCC) Start: 10-06-2022 FUV, Provider: Ailyn Baez, Status: Pen, Time: 1:00 PM FUV, Provider: Ailyn Baez, Status: Pen, Time: 1:00 PM [facility] Work Phone: Start: 10-06-2022 End: 10-07-2023 CBC W Auto Differential panel - Blood CBC and Auto Differential Lab Routine Primary hypertension Hypercholesteremia Chronic obstructive pulmonary disease, unspecified COPD type (CMS/HCC) Type 2 diabetes mellitus without complication, without long-term current use of insulin (CMS/HCC) Acute midline low back pain without sciatica 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 Expected: 10/06/2022 (Approximate), Expires: 10/07/2023 [facility] Work Phone: Comment on above: Expected: 10/06/2022 (Approximate), Expi res: 10/07/2023 Start: 10-06-2022 End: 10-07-2023 Comprehensive metabolic 2000 panel - Serum or Plasma Comprehensive Metabolic Panel Lab Routine Primary hypertension Hypercholesteremia Chronic obstructive pulmonary disease, unspecified COPD type (CMS/HCC) Type 2 diabetes mellitus without complication, without long-term current use of insulin (CMS/HCC) Leg swelling 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 Expected: 10/06/2022 (Approximate), Expires: 10/07/2023 [facility] Work Phone: Comment on above: Expected: 10/06/2022 (Approximate), Expi res: 10/07/2023 Start: 10-06-2022 End: 10-07-2023 Hemoglobin A1c/Hemoglobin.total in Blood Hemoglobin A1C Lab Routine Type 2 diabetes mellitus without complication, without long-term current use of insulin (CMS/HCC) Expected: 10/06/2022 (Approximate), Expires: 10/07/2023 [facility] Work Phone: Comment on above: Expected: 10/06/2022 (Approximate), Expi res: 10/07/2023 Start: 10-06-2022 End: 10-07-2023 Lipid 1996 panel - Serum or Plasma Lipid Panel Lab Routine Primary hypertension Hypercholesteremia Type 2 diabetes mellitus without complication, without long-term current use of insulin (CMS/HCC) 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 Expected: 10/06/2022 (Approximate), Expires: 10/07/2023 [facility] Work Phone: Comment on above: Expected: 10/06/2022 (Approximate), Expi res: 10/07/2023 Start: 10-06-2022 End: 10-07-2023 Magnesium [Mass/volume] in Serum or Plasma Magnesium Lab Routine Primary hypertension Chronic obstructive pulmonary disease, unspecified COPD type (CMS/HCC) Type 2 diabetes mellitus without complication, without long-term current use of insulin (CMS/HCC) Leg swelling 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 Expected: 10/06/2022 (Approximate), Expires: 10/07/2023 [facility] Work Phone: Comment on above: Expected: 10/06/2022 (Approximate), Expi res: 10/07/2023 Start: 10-06-2022 End: 10-07-2023 Microalbumin/Creatinine [Mass Ratio] in Urine Albumin , Urine Random Lab Routine Primary hypertension Type 2 diabetes mellitus without complication, without long-term current use of insulin (CMS/HCC) 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 Expected: 10/06/2022 (Approximate), Expires: 10/07/2023 [facility] Work Phone: Comment on above: Expected: 10/06/2022 (Approximate), Expi res: 10/07/2023 Start: 10-06-2022 End: 10-07-2023 TSH with reflex to Free T4 if abnormal TSH with reflex to Free T4 if abnormal Lab Routine Primary hypertension Hypercholesteremia Type 2 diabetes mellitus without complication, without long-term current use of insulin ([facility] [facility]) 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 170 Work Phone: Start: 11-05-2021 FUV, Provider: Narendra Newton, Status: Pen, Time: 3:30 PM FUV, Provider: Narendra Newton, Status: Pen, Time: 3:30 PM [facility] 170 Work Phone: Start: 10-14-2021 NPV, Provider: Narendra Newton, Status: Pen, Time: 11:00 AM NPV, Provider: Narendra Newton, Status: Pen, Time: 11:00 AM [facility] Work Phone: Start: 10-07-2021 FUV, Provider: Ailyn Baez, Status: Pen, Time: 1:15 PM FUV, Provider: Ailyn Baez, Status: Long, Time: 1:15 PM [facility] Work Phone: Start: 2002 Pneumococcal Vaccine: 65+ Years (2 - PPSV23 or PCV20) Pneumococcal Vaccine: 65+ Years (2 - PPSV23 or PCV20) [facility] Start: 2002 Pneumococcal Vaccine: 65+ Years (2 of 2 - PPSV23 or PCV20) Pneumococcal Vaccine: 65+ Years (2 of 2 - PPSV23 or PCV20) [facility] Start: 04-03-1999 Pneumococcal Vaccine: 65+ Years (2 - PPSV23 if available, else PCV20) Pneumococcal Vaccine: 65+ Years (2 - PPSV23 if available, else PCV20) [facility] Start: 04-03-1999 Pneumococcal Vaccine: 65+ Years (2 of 2 - PPSV23 or PCV20) Pneumococcal Vaccine: 65+ Years (2 of 2 - PPSV23 or PCV20) [facility] Start: 1987 Zoster Vaccines (1 of 2) Zoster Vaccines (1 of 2) [facility] Start: 1956 Urine screening for protein Diabetes: Urine Protein Screening [facility] Start: 1947 Diabetic foot examination Diabetes: Foot Exam [facility] Start: 1947 Glaucoma screening Diabetes: Retinopathy Screening [facility] Start: 1947 Ophthalmic examination and evaluation Diabetes: Retinopathy Screening [facility] Start: 1944 DTaP/Tdap/Td Vaccines (1 - Tdap) DTaP/Tdap/Td Vaccines (1 - Tdap) [facility] Start: 1937 Hemoglobin A1c measurement Diabetes: Hemoglobin A1C [facility] Start: 1937 Lipid panel Lipid Panel [facility] Start: 1937 Medicare Annual Wellness Visit Medicare Annual Wellness Visit (AWV) [facility] Immunizations Immunization Date Immunization Notes Care Provider Fa cili 05-19-2024 Seasonal, trivalent, recombinant, injectable influenza vaccine, preservative free Annette Aichholz [employer] Work Phone: [facility] 05-25-2023 Seasonal, quadrivalent, recombinant, injectable influenza vaccine, preservative free Annalee Hernández [facility] Work Phone: [facility] 05-25-2023 influenza virus vaccine, unspecified formulation Sohan Eden DO Work Phone: [facility] 05-13-2023 SARS-COV-2 (COVID-19 ) vaccine, mRNA, spike protein, LNP, PF, 50 mcg/0.5 mL Annalee [facility] Work Phone: [facility] 04-25-2022 influenza, injectabl e, quadrivalent, preservative free Ailynchantell Baez DO Work Phone: [facility] Work Phone: 12-03-2021 Moderna COVID-19 Vaccine 100 MCG/0.5ML Intramuscular Suspension Ailyn Baez Work Phone: [facility] 06-23-2021 influenza virus vaccine, unspecified formulation Ailyn Baez Work Phone: [facility] Work Phone: Comment on above: Series: 06-23-2021 Influenza, injectabl e, Madin Elaina Canine Kidney, preservative free, quadrivalent Ailyn Baez DO Work Phone: [facility] Work Phone: 06-09-2021 Moderna COVID-19 Vaccine 100 MCG/0.5ML Intramuscular Suspension Ailyn Baez Work Phone: [facility] Comment on above: Series: 09-30-2020 Moderna COVID-19 Vaccine 100 MCG/0.5ML Intramuscular Suspension Ailyn Baez Work Phone: [facility] Work Phone: Comment on above: Series: 09-02-2020 Moderna COVID-19 Vaccine 100 MCG/0.5ML Intramuscular Suspension Ailyn Baez Work Phone: [facility] Comment on above: Series: 05-07-2020 Influenza, injectabl e, Madin Elaina Canine Kidney, preservative free, quadrivalent Ailyn Kang Baez Work Phone: [facility] Work Phone: 02-06-1999 pneumococcal conjuga te vaccine, 13 valent Ailyn Baez Work Phone: [facility] Work Phone: Comment on above: Series: Payers Date Payer Category Payer [facility] Subscriber Plan / Payer (Effective 2016-Present) Name: Fidel Palomino Relation to Subscriber: Self Name: Fidel Palomino Payer ID: Not on file Group ID: [id number] Type: Not on file Address: [place] [id number] 2016 Unknown 2002 Medicare [id number] 1959 Medicare [id number] 1959 Self-pay 1959 Unknown [id number] 1937 Unknown [id number] 2.16.840.1.454357.3.579.2 .593 1937 Unknown [id number] 2.16.840.1.991058.3.579.2 .593 1937 Unknown [id number] 2.16.840.1.061225.3.579.2 .593 1937 Unknown [id number] 2.16.840.1.861998.3.579.2 .593 1937 Unknown [id number] 2.16.840.1.280623.3.579.2 .732 1937 Unknown [id number] 2.16.840.1.811487.3.579.2 .732 1937 Unknown [id number] 2.16.840.1.520472.3.579.2 .732 1937 Unknown [id number] 2.16.840.1.861013.3.579.2 .732 1937 Unknown [id number] 2.16.840.1.654228.3.579.2 .732 1937 Unknown [id number] 2.16.840.1.429456.3.579.2 .732 1937 Unknown [id number] 2.16.840.1.733363.3.579.2 .732 1937 Unknown [id number] 2.16.840.1.624346.3.579.2 .732 1937 Unknown [id number] 2.16.840.1.233230.3.579.2 .732 1937 Unknown [id number] 2.16.840.1.383586.3.579.2 .732 1937 Unknown [id number] 2.16.840.1.071607.3.579.2 .1244 1937 Unknown [id number] 2.16.840.1.752677.3.579.2 .1259 1937 Unknown [id number] 2.16.840.1.502226.3.579.2 .1259 1937 Unknown [id number] 2.16.840.1.575517.3.579.2 .1259 1937 Unknown [id number] 2.16.840.1.216874.3.579.2 .1259 1937 Unknown [id number] 2.16.840.1.315568.3.579.2 .1258 1937 Unknown [id number] 2.16.840.1.424996.3.579.2 .9 1937 Unknown [id number] 2.16.840.1.699840.3.579.2 .1258 1937 Unknown [id number] 2.16.840.1.101119.3.579.2 .125 1937 Unknown [id number] 2.16.840.1.546389.3.579.2 .1258 1937 Unknown [id number] 2.16.840.1.794530.3.579.2 .1259 1937 Unknown [id number] 2.16.840.1.575433.3.579.2 .1258 1937 Unknown [id number] 2.16.840.1.439793.3.579.2 .1259 1937 Unknown [id number] 2.16.840.1.833635.3.579.2 .1259 Unknown [id number] 2.16.840.1.862536.3.579.2 .593 Unknown [id number] 2.16.840.1.649919.3.579.2 .593 Unknown [id number] 2.16.840.1.843277.3.579.2 .593 Unknown [id number] 2.16.840.1.046159.3.579.2 .531 Social History Date Type Detail Facility Start: 08-09-2023 End: 06-14-2024 Former smoker Former smoker -[facility] Work Phone: Start: 08-09-2023 End: 06-14-2024 Sex Assigned At [facility] [employer] Other Start: 04-27-2023 Tobacco smoking status WIIS Ex-smoker [facility] History of tobacco use [...] 1935 Sex Assigned At [facility] on file [facility] Work Phone: Start: 10-06-2022 Tobacco smoking status NHIS Never smoked tobacco [facility] Work Phone: Start: 10-06-2022 Tobacco use and exposure Former smokeless tobacco user [facility] Work Phone: Start: 10-06-2022 Alcohol intake Ex-drinker (finding) [facility] Work Phone: Start: 09-26-2022 End: 10-06-2022 Exposure to SARS-CoV-2 (event) Not sure [facility] Clinical Notes 07-28-2021 to 09-10-2024 Annette Whitfield, [employer]PATCHER - 09/10/2024 1:20 PM ESTAnnette Whitfield, [employer] DISPATCHER - 09/10/2024 6:54 AM ESTLisa Nahid, [employer] DISPATCHER - 09/10/2024 6:54 AM ESTLisa Nahid, [employer] DISPATCHER - 09/10/2024 6:53 AM ESTPatient Instructions Note [...] Date CATARACT EXTRACTION, BILATERAL Bilateral HERNIA REPAIR AK LAP,APPENDECTOMY 07/28/2021 US GUIDED PERCUTANEOUS PERITONEAL OR [...] CBC and differential Vitamin B12 HTN (hypertension) ([facility]) - Primary Please check blood pressure daily and record DASH diet Limit caffeine Take medication as directed Contact office if chest pain, pressure, dizziness, shortness of breath, swelling legs Recommend slow position changes Current meds: carvedilol, hydrochlorothiazide Relevant Orders Comprehensive metabolic panel Urinalysis with reflex microscopic (clean catch) Microalbumin / creatinine, urine ratio Chronic obstructive pulmonary disease, unspecified ([facility]) Continue with oxygen for HS use Does not use any inhalers Relevant Orders CBC and differential 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 ([facility]) Continue with asa, statin, b marco and blood pressure control Continue with cardiology as directed Relevant Orders Comprehensive metabolic panel Hyperlipidemia ([facility]) On statin therapy Check labs yearly and [...] differential Type 2 diabetes mellitus without complications ([facility]) Check blood sugars daily, notify if <70 [...] cancer Relevant Orders PSA Associated Problem(s): Hyperlipidemia (CMS/HCC) On statin therapy Check labs yearly and prn dose changes Associated Problem(s): Type 2 diabetes mellitus without complications (CMS/[facility]) Check blood sugars daily, notify if <70 [...] yearly and prn Associated Problem(s): HTN (hypertension) (CMS/HCC) Please check blood pressure daily and record DASH diet Limit caffeine Take medication as directed Contact office if chest pain, pressure, dizziness, shortness of breath, swelling legs Recommend slow position changes Current meds: carvedilol, hydrochlorothiazide Associated Problem(s): 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) Continue with asa, statin, b marco and blood pressure control Continue with cardiology as directed Associated Problem(s): Chronic obstructive pulmonary disease, unspecified (CMS/HCC) Continue [...] therapy at night documented in this encounter [facility] 09-10-2024 Instructions Annette Whitfield NP - 09/10/2024 1:20 PM EST Get fasting labs Doing well otherwise documented in this encounter [facility] 06-14-2024 History of Present illness Narrative Associated [...] Hospitalizations in the last year: none Specialist: [employer] Commod[employer] Grader: [facility], Eye doctor: HCPOA/Living Will: yes Concerns: none SUBJECTIVE: MEDICATIONS: Current [...] Appendicitis 2020 Hearing decreased, bilateral HTN (hypertension) ([facility]) Hyperlipidemia ([facility]) Pre-diabetes 09/12/2023 Primary hypertension ([facility]/HCC) 08/28/2021 Sensorineural hearing loss (SNHL) of right ear with restricted hearing of left ear Vertigo Past Surgical History: Procedure Laterality Date CATARACT EXTRACTION, BILATERAL Bilateral HERNIA REPAIR AK LAP,APPENDECTOMY 07/28/2021 US GUIDED PERCUTANEOUS PERITONEAL OR [...] List Items Addressed This Visit HTN (hypertension) ([facility]) Please check blood pressure daily and record DASH diet Limit caffeine Take medication as directed Contact office if chest pain, pressure, dizziness, shortness of breath, swelling legs Recommend slow position changes Relevant Medications carvedilol (Coreg) 25 MG tablet hydroCHLOROthiazide (HYDRODiuril) 25 MG tablet Benign prostatic hyperplasia with weak urinary stream Continue with proscar COPD (chronic obstructive pulmonary disease) ([facility]) Continue with oxygen for HS use 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 ([facility]) Continue with asa, statin, b marco and blood pressure control Continue with cardiology as directed Relevant Medications aspirin 81 MG EC tablet carvedilol (Coreg) 25 MG tablet Hyperlipidemia ([facility]) Continue statin Relevant Medications atorvastatin (Lipitor) 40 MG tablet Obstructive sleep apnea, adult Did not tolerated wearing PAP Does wear oxygen at night Pleural effusion Will check CXR No acute symptoms Wears oxygen Relevant Orders XR chest 2 views RESOLVED: Type 2 diabetes mellitus without complication, without long-term current use of insulin ([facility]) Check blood sugars daily, notify if <70 [...] complication, without long-term current use of insulin ([facility]) (Resolved 06/14/2024) Check blood sugars daily, notify [...] Continue with proscar Associated Problem(s): HTN (hypertension) ([facility]) Please check blood pressure daily and record DASH diet Limit caffeine Take medication as directed Contact office if chest pain, pressure, dizziness, shortness of breath, swelling legs Recommend slow position changes Associated Problem(s): 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 ([facility]) Continue with asa, statin, b marco and blood pressure control Continue with cardiology as directed Associated Problem(s): COPD (chronic obstructive pulmonary disease) ([facility]) Continue with oxygen for HS use documented in this encounter [facility] 06-14-2024 Instructions Annette Whitfield NP - 06/14/2024 1:00 PM EST No changes in meds Follow up appt in 3 months documented in this encounter [facility] 05-16-2024 History of Present illness Narrative Lesions: [...] limited to risks of scarring, darker or child and family counselor pigmentary changes, recurrence, incomplete removal and infection. [...] any new/changing lesions documented in this encounter [facility] 05-14-2024 History of Present illness Narrative Associated [...] Negative for color change. Skin lesion left quaker area Neurological: Negative for dizziness, tremors and [...] Date CATARACT EXTRACTION, BILATERAL Bilateral HERNIA REPAIR AK LAP,APPENDECTOMY 07/28/2021 US GUIDED PERCUTANEOUS PERITONEAL OR [...] 2 to 3 seconds. Findings: Lesion (left quaker, warty, c/w seborrhic keratosis, measures [id number]) present. Neurological: General: No focal deficit present. [...] referral to Dermatology documented in this encounter [facility] 04-16-2024 Note Lipid abnormalities are well controlled and liver function normal Continue lipitor 40 mg [facility] 04-16-2024 Note Coronary artery dise ase is stable without any concerning symptoms Continue GDMT- ASA, lipitor, coreg Lipid levels are well controlled and d/w pt to call office or 911 for any concerning symptoms- chest pain, SOB, increased fatigue continue risk factor modifications- heart healthy diet, regular exercise as tolerated and continue all medications. [facility] 04-16-2024 Note Hypertension is well controlled Continue coreg and hydrochlorothiazide Renal function is normal [facility] 04-16-2024 Note UTP CARDIOLOGY PROGR ESS [...] CREATININE 0.88 -- 0.91 0.91 TBH EGFR-AF [place]IZ[place] >60 -- >60 >60 TBH EGFR-NON AF [place]IZ[place] >60 -- >60 >60 BUN CREATININE [...] Calcium 8.5 - (more content not included)... [facility] 04-16-2024 Note Pt is here for a one year follow up. Pt denies sob, chest pain, palpatations. Review of Systems Cardiovascular: Positive for leg swelling (ankles). [facility] 04-16-2024 Note Diabetes is stable, A1C well controlled F/U with PCP [facility] 04-11-2024 History of Present illness Narrative [...] Date CATARACT EXTRACTION, BILATERAL Bilateral HERNIA REPAIR AK LAP,APPENDECTOMY 07/28/2021 US GUIDED PERCUTANEOUS PERITONEAL OR [...] reflexes are 0 and symmetric throughout. Coordination: [id number] testing and rapid alternating movements are normal Gait: Normal Review and summary of old records: MRI of the brain with and without contrast internal auditory canal protocol on 05/09/2023: Fluid signal intensity within the left mastoid air cells. Otherwise unremarkable IAC. Unremarkable intracranial views. 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) Relevant Medications aspirin 81 MG EC tablet carvedilol (Coreg) 25 MG tablet Leg swelling Relevant Medications potassium chloride CR (Klor-Con M10) 10 MEQ ER tablet Hyperlipidemia (CMS/HCC) Relevant Medications atorvastatin (Lipitor) 40 MG tablet Obstructive sleep apnea, adult Type 2 diabetes mellitus without complication, without long-term current use of insulin ([facility]) - Primary BMI 25.0-25.9,adult Edema of both lower extremities Relevant Medications furosemide (Lasix) 20 MG tablet hydroCHLOROthiazide (HYDRODiuril) 25 MG tablet Other Relevant Orders Basic metabolic panel Other Visit Diagnoses Essential (primary) hypertension (CMS/HCC) Relevant Medications hydroCHLOROthiazide (HYDRODiuril) 25 MG tablet documented in this encounter [facility] 09-05-2023 History of Present illness Narrative Hearing Aid Discussion: Pt here for HAD. 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 Discussed pros and cons of binaural amplification vs BICROS and pt decided to try BICROS. Pt likes beige and needs 3M annealing oven operator for right ear and 3S annealing oven operator for left ear. Will order aids from [employer]. Pt scheduled for HAF. Cost at fitting will be $3400 documented in this encounter [facility] 04-26-2023 Note [facility] Note Chief Complaint: Patient here [...] 4. No anginal symptoms or arrhythmias noted. Echocardiogram-[facility] Name: FIDEL PALOMINO Study Date: 05/18/2022 09:03 AM B/P: 136 mmHg/80 mmHg HR: 62 bpm Date of : 1935 Location: [facility] Height: 71 in. Age: 86 year(s) Patient [...] valvular abnormalities Assessment: Coronary artery disease involving saxman coronary arteries without angina Benign essential hypertension Cough syncope Dyslipidemia Plan: Continue guideline directed medical therapy for coronary artery disease including aspirin, mode (more content not included)... [facility] 10-06-2022 Evaluation + Plan note Associated Problem(s): COPD (chronic obstructive pulmonary disease) ([facility]) Continue to follow with pulmonology as recommended. Continue oxygen as before [facility] Work Phone: 10-06-2022 Miscellaneous Notes Associated Problem(s): COPD (chronic obstructive pulmonary disease) ([facility]) Continue to follow with pulmonology as recommended. Continue oxygen as before documented in this encounter [facility] Work Phone: 10-06-2022 History of Present illness [...] Medicine) Ailyn Baez DO as PCP - [facility] Attributed Provider Review of Systems Constitutional: [...] Visit Respiratory COPD (chronic obstructive pulmonary disease) ([facility]/HCC) Current Assessment & Plan Continue to follow with pulmonology as recommended. 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 HTN (hypertension) - Primary Musculoskeletal Leg swelling Endocrine/Metabolic Type 2 diabetes mellitus without complication, without long-term current use of insulin ([facility]) Other Benign prostatic hyperplasia with weak urinary stream Hypercholesteremia Other Visit Diagnoses Routine general medical examination at a health care facility Acute midline low back pain without sciatica documented in this encounter [facility] Work Phone: 08-27-2022 Evaluation note Encounter Date [...] back pain home care material was printed [employer] Other [id number] NoteTransitional Care Management Contact Initial communication post- discharge: 1st attempt: 08/31/21 Sources of Information: [x]Patient, family member or care provider: Manasa Palomino (spouse) [x] Hospital Discharge Summary [...] assisting with bathing and dressing. Per notes [facility] called [place] office advises unable due to lack of staffing message sent to inpatient Control Panel Operator [employer] [facility] to advise for correct agency Medication changes: Yes If yes, what are they and does patient understand how and when to take? yes Medication list reviewed with patient: Yes Needs follow up appointment or procedure: Yes Future Appointments Date Time Department Provider Status 09/21/21 8:00 AM LIVER [phone] Jd Dubon MD Scheduled 09/22/21 8:00 AM SURGERY GENERAL [phone] Clotilde Pettit APRN-BLENDER / COOK Scheduled 11/04/21 8:00 AM [facility] PULMONARY [phone] Tatyana Potter MD Scheduled Review need for or follow up on pending diagnostic test, referrals to specialist and treatment plans with patient/caregiver: No Community resources identified for patient/family: [facility] i.e. [employer], [employer], [employer], [employer] Durable medical equipment ordered:Yes Education provided to patient/caregiver to support self management, ADL's, etc: ANDI offered Mode of Transportation: Patient arranges Additional information needed and requested:No Reminded to bring in all medications. (Old AND New) to future appointment. Interact with other health adult caregiver involved in patient care:[facility] Dole TianPiggybackr [id number] NoteMedicine Intensive Care Unit Critical Care Progress Note Fidel Palomino 86 year old 204.8075 lbs MRN/Room: [id number] Length of stay: 2 day(s) Summary Fidel Palomino is a 86 year old male with a PMH of HTN, HLD, [facility] c/b illeus who presented to the hospital 08/25 with syncope/lightheadedness, nausea/poor appetite. Imaging at outside hospital showed a fluid collection in R paracolic gutter concerning for abscess. Transferred to [facility] for further management. IR placed intraabdominal drain for fluid collection 08/25. Recommended continued antibiotics with Vanc/Cefepime/Flagyl. Fluid cultures obtained from site. In the [facility] ED, imaging showed moderate R and [...] Neutro% Segs% Bands% Lymphs% Monos% Eos% Basos% 08/27/21 0418 76.7 10.1 9.5 2.7 0.9 08/26/21 0431 81.2 8.0 9.0 1.5 0.4 08/25/21 0510 87.5 3.6 8.3 0.4 0.2 Basic Metabolic Panel Na K Cl CO2 Gap Glu BUN Cr Ca Mg PO4 08/27/218 1.8 08/27/21417 134 4.0 94 33 11 149 25 1.16 7.6 (more content not included)...[facility], [place] [id number] NoteDISCHARGE SUMMARY [facility] [address] [place] [address] Fidel Palomino Date of : 1935 86 [...] Technically successful ultrasound-guided placement of a 10 Syrian pigtail catheter into right paracolic gutter abscess. [...] of HTN, HLD, recent appendectomy (07/28/21, at [facility]) c/b illeus???who presented???to the hospital 08/25???with syncope/lightheadedness, nausea/poor appetite. Imaging at outside hospital showed a fluid collection in R paracolic gutter concerning for abscess. Transferred to [facility] for further management. IR placed intraabdominal drain for fluid collection 08/25. Recommended continued antibiotics with Vanc/Cefepime/Flagyl. Fluid cultures obtained from site.? In the [facility] ED, imaging showed moderate R and [...] (new onset cirrhosis) (appointments set up at [facility] [place], patient understands this and is responsible for setting up appointments in his own area) [ ] finish 4 days of levofloxacin [ ] get CPAP machine for wearing at night given JOE [ ] trend [facility] outpatient [ ] diabetes management outpatient I provided the patient and/or family/surrogate with the following information: Explanation of the primary diagnosis, and secondary diagnoses where applicable, including test results Rubio Baker, DO PGY-2 [id number] [facility] [id number] NotePHYSICAL THERAPY ACUTE EVALUATION Referral received, chart [...] available: Wheeled walker, tub bench, grab bars. 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 Pt ambulated without an assistive device. OBJECTIVE: Appearance: Pt resting in bed when therapists entered the room. Pt with EKG, BP cuff, pulse ox, SCDs, and rievrs in place. Behavior: Alert, appropriate, cooperative. Pt [...] Dep Max Mod Min CG CS DS OR I Comment Rolling x Supine>sit x HOB elevated. Sitting trial x Unsupported sitting at EOB. Transfer x Sit<>stand x Without an assistive device. Standing trial x Ambulation x 30 feet x2 without an assistive device. Pt demonstrated steady step-through gait pattern. Stairs x 4 steps with unilateral rail. Pt negotiated stairs utilizing a yfkp-zngy-syqu pattern. Balance: -Unsupported static sitting: independent. -(Un)supported [...] Guard Assist/Supervision 4 - Non = Modified [place]/Independent Patient/Family Education: Instructed pt in roles of [...] program Discharge lucero (more content not included)...[employer] [id number] NoteOCCUPATIONAL THERAPY INITIAL EVALUATION Patient seen from 0829 to 0850 on CCP3W unit for 21 minutes. Co-tx with PT due to high medical complexity, safety concerns, assist of 2 required for mobility and/or advanced airway in place. Admit date: 08/25/2021 4:58 AM Reason for Admit: patient is tx from [facility] for post op complications post appendectomy [...] of risks and benefits of treatment Appearance: automation tender, Pulse Oximeter, IV, Rivers and Sequential Compression Devices (SCDs) Alertness: WFL Affect: WNL Cooperation/Behavior: Appropriate dialogue with therapist and Pleasant and cooperative Communication: WFL Pain: Pain ratin/10, Location: no pain Pain Relief Interventions Implemented: None required; No pain at this time Self Care: Assistance Level Dep Max Mod Min CG CS DS OR I Set-Up Comment Feeding x Independent Grooming/Hygiene x Standing at sink to complete hand hygiene Bathing:UB x Anticipate Bathing:LB x Based on functional reach/pain. Dressing:UB x Don gown Dressing: LB x Assist to don socks. Patient reports reports assist from required at baseline. Toileting x Seated at toilet, completes hygiene standing Transfers/Bed Mobility: Assistance Level Dep Max Mod Min CG CS DS OR I Set-Up Comment Toilet Transfers x Sit [...] With Patients permission ordered no equipment via [employer] Order. If any questions contact [facility] DME Provider at [phone]. ??? 6 Clicks Daily Activity OT 08/28/2021 Help from another person Eating meals 4 Help from another person taking care of (more content not included)...[facility], [place] [id number] [facility] Referral from: Insurance verification:in progress Discussion with patient:to follow Home Health Agency:to be determined Start of care:to be determined Other:Following [place]AT needs at [place]. Weekends, holidays or after hours contact [facility] intake @ [phone] Annette Cardozo RN Clinical Transition Specialties [facility] [phone] or [phone] [facility] [id number] NoteBEDSIDE RN PICC LINE INSERTION PROCEDURE NOTE Date: 08/27/2021 Time: 1440 Patient location: [facility] Indication for line: IV ANTIBIOTICS Consent [...] VERIFICATION Klarissa Ahuja RN Vascular Access TeamThe [facility], [place]iggyback[place] [id number] NoteDNR Comfort Care Arrest- Do Not Intubate [...] Yes BARRIERS TO PLAN OF CARE: None OCCUPATIONAL THERAPY DEPARTMENT CHAIR RN Carly Mcneal RN DAY SHIFT RN Ghislaine Baez [facility] [employer] [employer] [id number] NoteMedicine Intensive Care Unit Critical Care Progress Note Fidel Palomino 86 year old 205.0275 lbs MRN/Room: [address] [place] [address] Length of stay: 2 day(s) Summary Fidel Palomino is a 86 year old male with a PMH of HTN, HLD, [facility] c/b illeus who presented to the hospital 08/25 with syncope/lightheadedness, nausea/poor appetite. Imaging at outside hospital showed a fluid collection in R paracolic gutter concerning for abscess. Transferred to [facility] for further management. IR placed intraabdominal drain for fluid collection 08/25. Recommended continued antibiotics with Vanc/Cefepime/Flagyl. Fluid cultures obtained from site. In the [facility] ED, imaging showed moderate R and [...] data filed at (more content not included)...[employer] 08-26-2021 NoteSocial Work ICU Assessment: Referral: specifications checker screen for pt has living will but not with pt. SW met with pt and , Manasa at bedside. HX: 86 year old???male???with a h/o HTN, HLD, BPH, remote left inguinal hernia repair with mesh, s/p appendectomy 07/28/21 (done at [facility]) c/b ileus???who presented to [facility] ED for lightheadedness and dizziness. Living Situation: Pt reports he lives with in one story home. Family/Next of Kin: Manasa Palomino: [phone]. Pt has 4 adult children. Advance Directive Information: Pt reports he does not have ADs in place and only Last Will and Testament. 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 SW addressed the hierarchy of identification of substitute decision-makers in the state of [place] is (in order) court-appointed legal guardian, health-care power of civil litigation attorney, spouse, majority of adult children, parents, majority of adult siblings, and nearest relative. Finances/Insurance: Medicare A AND B and [place] [employer] ([employer]) Cross. Social Work Need/Indicators: SW met with [...] PT/OT, recs. SW will follow. Bailey Casillas [facility] Care Coordination DepartmentThe [facility] [id number] NoteDNR Comfort Care Arrest- Do Not Intubate [...] tonight BARRIERS TO PLAN OF CARE: none OCCUPATIONAL THERAPY DEPARTMENT CHAIR LEAH Soler DAY SHIFT RN Cassie Mancera [facility], [place] [id number] NoteMedicine Intensive Care Unit Critical Care Progress Note Fidel Palomino 86 year old 205.0275 lbs MRN/Room: [id number]/[facility]-129/1 Length of stay: 1 day(s) Summary Fidel Palomino is a 86 year old male with a PMH of HTN, HLD, [facility] c/b illeus who presented to the hospital 08/25 with syncope/lightheadedness, nausea/poor appetite. Imaging at outside hospital showed a fluid collection in R paracolic gutter concerning for abscess. Transferred to [facility] for further management. IR placed intraabdominal drain for fluid collection 08/25. Recommended continued antibiotics with Vanc/Cefepime/Flagyl. Fluid cultures obtained from site. In the [facility] ED, CBC with leukocytosis 18.2. CBC [...] -- 81 25 96 % -- -- 08/25/21 2350 107/62 -- -- 71 23 97 % [...] Port #1 Capped;Patent (more content not included)...[employer] [id number] NoteMedicine Intensive Care Unit History and Physical Examination Fidel Palomino 86 year old [id number] lbs MRN/Room: [id number]/3-129/1 Admit Date: 08/25/2021 : 1935 PCP Contact: [...] of HTN, HLD, recent appendectomy (07/28/21, at [facility]) c/b illeus who presented to the [...] showed small b/l pleural effusions. Transferred to [facility] for further management. IR placed intraabdominal [...] Nasal cannula 08/25 (more content not included)...[employer] [id number] Note EXAMINATION: US CATH DRAINAGE PERITONEAL (MARIO) [...] sterile fashion. Under ultrasound guidance, a 10 Syrian self-retaining all-purpose drainage catheter was advanced into [...] Technically successful ultrasound-guided placement of a 10 Syrian pigtail catheter into right paracolic gutter abscess. MACRO: NoneThe [facility]01-25-2022 NotePOST- PROCEDURE NOTE Pre-procedure Diagnosis: Right [...] of the procedure Jere Hamilton MD RadiologyThe [facility]01-25-2022 NoteMODIFIED HISTORY AND PHYSICAL: Procedure:Ultrasound guided [...] Directives (Living will, health care power of civil litigation attorney): none Code Status For This Procedure: Full Code Jere Hamilton MD RadiologyThe [facility]01-25-2022 NoteAcute Care Surgery - Plan of Care Note 86 year old male with PMHx HTN, HLD, BPH, remote L inguinal hernia repair w/ mesh, appendectomy (07/28/2021 at [facility]) c/b ileus presented to OSH with lightheadedness and transferred w/ bilateral pleural effusions and R paracolic gutter abdominal collection. Plan: -Admit to medicine for management of pulmonary effusions, UTI, DIONISIO -Plan for IR drain placement of fluid collection -Obtain cultures Assessment and plan to be discussed with Dr. Garcia. Denise Lincoln MD, MPH General Surgery PGY-1 ACS Consult: [phone] ACS Floor: [phone] Addendum Evaluated patient at bedside at [...] JA. Garcia. Nura Sanchez MD General Surgery WOS7Heo [facility] [id number] NoteCONSULTATION Consultation Date: 07-28-21 REASON FOR CONSULTATION: [...] he is willing to undergo the procedure. [facility] Signed and Approved by: DR GOYO VENTURA . 08/02/2021 10:29:00[facility]12-28-2021 NoteOPERATIVE NOTE OPERATION DATE: 07-28-21 ANESTHETIC: General. IV FLUIDS:Crystalloid 1,000 mL. BYPRODUCTS MAKER:JEAN Matthews PREOPERATIVE DIAGNOSIS:Acute appendicitis. POSTOPERATIVE DIAGNOSIS:Same. PROCEDURE [...] taken to the PACU in fair condition. [facility] Signed and Approved by: DR GOYO VENTURA . 08/02/2021 10:29:00[facility] complaint Narrative - Reported* FIDEL PALOMINO is here for an initial evaluation. * Reason for Visit: COPD, JEO,. * Appointment requested by: Ailyn Baez . 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) Mixed hyperlipidemia (CMS/HCC) Mixed hyperlipidemia documented in this encounter [facility] HealthcareEvaluation note* Diagnosis Leg swelling- Primary Swelling of limb Chronic obstructive pulmonary disease, unspecified COPD type (CMS/HCC) Primary hypertension (CMS/HCC) Unspecified essential hypertension Primary hypertension (CMS/HCC)- Primary Unspecified essential hypertension BMI 25.0-25.9,adult Dyspnea, unspecified type Acute non-recurrent sinusitis of other sinus Leg swelling Swelling of limb Primary hypertension (CMS/HCC)- Primary Unspecified essential hypertension 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) Mixed hyperlipidemia (CMS/HCC) Mixed hyperlipidemia B12 deficiency Edema of both lower extremities Essential (primary) hypertension (CMS/HCC) Unspecified essential hypertension Leg swelling Swelling of limb Type 2 diabetes mellitus without complication, without long-term current use of insulin (CMS/HCC) Type 2 diabetes mellitus without complication, without long-term current use of insulin (CMS/HCC)- Primary B12 deficiency 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) Mixed hyperlipidemia (CMS/HCC) Mixed hyperlipidemia Primary hypertension (CMS/HCC) Unspecified essential hypertension Edema of both lower extremities Essential (primary) hypertension (CMS/HCC) Unspecified essential hypertension Leg swelling Swelling of limb Memory impairment of gradual onset Seborrheic keratosis of scalp- Primary documented in this encounter [facility] HealthcareEvaluation note* Diagnosis Leg swelling- Primary Swelling of limb Chronic obstructive pulmonary disease, unspecified COPD type (CMS/HCC) Primary hypertension (CMS/HCC) Unspecified essential hypertension Primary hypertension (CMS/HCC)- Primary Unspecified essential hypertension BMI 25.0-25.9,adult Dyspnea, unspecified type Acute non-recurrent sinusitis of other sinus Leg swelling Swelling of limb Primary hypertension (CMS/HCC)- Primary Unspecified essential hypertension 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) Mixed hyperlipidemia (CMS/HCC) Mixed hyperlipidemia B12 deficiency Edema of both lower extremities Essential (primary) hypertension (CMS/HCC) Unspecified essential hypertension Leg swelling Swelling of limb Type 2 diabetes mellitus without complication, without long-term current use of insulin (CMS/HCC) Type 2 diabetes mellitus without complication, without long-term current use of insulin (CMS/HCC)- Primary B12 deficiency 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) Mixed hyperlipidemia (CMS/HCC) Mixed hyperlipidemia Primary hypertension (CMS/HCC) Unspecified essential hypertension Edema of both lower extremities Essential (primary) hypertension (CMS/HCC) Unspecified essential hypertension Leg swelling Swelling of limb Memory impairment of gradual onset Seborrheic keratosis of scalp- Primary Seborrheic keratosis of scalp Inflamed seborrheic keratosis documented in this encounter [facility] HealthcareEvaluation note* Diagnosis Leg swelling- Primary Swelling of limb Chronic obstructive pulmonary disease, unspecified COPD type (CMS/HCC) Primary hypertension (CMS/HCC) Unspecified essential hypertension Primary hypertension (CMS/HCC)- Primary Unspecified essential hypertension BMI 25.0-25.9,adult Dyspnea, unspecified type Acute non-recurrent sinusitis of other sinus Leg swelling Swelling of limb Primary hypertension (CMS/HCC)- Primary Unspecified essential hypertension 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) Mixed hyperlipidemia (CMS/HCC) Mixed hyperlipidemia B12 deficiency Edema of both lower extremities Essential (primary) hypertension (CMS/HCC) Unspecified essential hypertension Leg swelling Swelling of limb Type 2 diabetes mellitus without complication, without long-term current use of insulin (CMS/HCC) Type 2 diabetes mellitus without complication, without long-term current use of insulin (CMS/HCC)- Primary B12 deficiency 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) Mixed hyperlipidemia [...] COPD type (CMS/HCC) 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) Primary hypertension [...] Unspecified pleural effusion documented in this encounter [facility] note* Diagnosis Primary hypertension- Primary Unspecified [...] weak urinary stream 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0-25.9,adult Dyspnea, unspecified type Acute non-recurrent sinusitis of other sinus Leg swelling Swelling of limb Primary hypertension (CMS/HCC)- Primary Unspecified essential hypertension 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) Mixed hyperlipidemia (CMS/HCC) Mixed hyperlipidemia B12 deficiency Edema of both lower extremities Essential (primary) hypertension (CMS/HCC) Unspecified essential hypertension Leg swelling Swelling of limb Type 2 diabetes mellitus without complication, without long-term current use of insulin (CMS/HCC) Type 2 diabetes mellitus without complication, without long-term current use of insulin (CMS/HCC)- Primary B12 deficiency 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) Mixed hyperlipidemia [...] COPD type (CMS/HCC) 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) Primary hypertension [...] loss, bilateral- Primary documented in this encounter [facility] HealthcareEvaluation note* Diagnosis Leg swelling- Primary Swelling of limb Chronic obstructive pulmonary disease, unspecified COPD type (CMS/HCC) Primary hypertension (CMS/HCC) Unspecified essential hypertension Primary hypertension (CMS/HCC)- Primary Unspecified essential hypertension BMI 25.0-25.9,adult Dyspnea, unspecified type Acute non-recurrent sinusitis of other sinus Leg swelling Swelling of limb Primary hypertension (CMS/HCC)- Primary Unspecified essential hypertension 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) Mixed hyperlipidemia (CMS/HCC) Mixed hyperlipidemia B12 deficiency Edema of both lower extremities Essential (primary) hypertension (CMS/HCC) Unspecified essential hypertension Leg swelling Swelling of limb Type 2 diabetes mellitus without complication, without long-term current use of insulin (CMS/HCC) Type 2 diabetes mellitus without complication, without long-term current use of insulin (CMS/HCC)- Primary B12 deficiency 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) Mixed hyperlipidemia [...] COPD type (CMS/HCC) 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) Primary hypertension [...] sleep apnea, adult 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) Edema of both lower extremities BMI 25.0-25.9,adult Mixed hyperlipidemia (CMS/HCC) Mixed hyperlipidemia Screening for prostate cancer Special screening for malignant neoplasm of prostate B12 deficiency documented in this encounter [facility] HealthcareEvaluation note* Diagnosis Leg swelling- Primary Swelling of limb Chronic obstructive pulmonary disease, unspecified COPD type (CMS/HCC) Primary hypertension (CMS/HCC) Unspecified essential hypertension Primary hypertension (CMS/HCC)- Primary Unspecified essential hypertension BMI 25.0-25.9,adult Dyspnea, unspecified type Acute non-recurrent sinusitis of other sinus Leg swelling Swelling of limb Primary hypertension (CMS/HCC)- Primary Unspecified essential hypertension 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) Mixed hyperlipidemia (CMS/HCC) Mixed hyperlipidemia B12 deficiency Edema of both lower extremities Essential (primary) hypertension (CMS/HCC) Unspecified essential hypertension Leg swelling Swelling of limb Type 2 diabetes mellitus without complication, without long-term current use of insulin (CMS/HCC) Type 2 diabetes mellitus without complication, without long-term current use of insulin (CMS/HCC)- Primary B12 deficiency 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) Mixed hyperlipidemia [...] COPD type (CMS/HCC) 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) Primary hypertension [...] sleep apnea, adult 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) Edema of both lower extremities BMI 25.0-25.9,adult Mixed hyperlipidemia (CMS/HCC) Mixed hyperlipidemia Screening for prostate cancer Special screening for malignant neoplasm of prostate B12 deficiency Elevated alkaline phosphatase level- Primary documented in this encounter [facility] HealthcareHistory general Narrative - Reported* Type Description Date Medical History hypercholesterolemia Medical History Hypertension Surgical History appendicitis 2021 Hospitalization History Appendicitis [employer] Other History of Present illness Narrative* The [...] doing well with his blood pressure goals. [facility] Work Phone: History of Present illness Narrative* [...] doing well with his blood pressure goals. 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 Procedures Follow Up In [facility] - PCP Ailyn Baez DO [address] [place] [address] Referral ID Status Reason Start Date Expiration Date V isits Requested Visits Authorized [id number] Authorized 10/06/2022 04/04/2023 1 1 [facility] Work Phone: Reason for referral (narrative)* Consultation (Routine) - Pending Review Specialty Diagnoses / Procedures Referred By Ed tobar Referred To Contact Psychology Diagnoses Cognitive impairment Family history of dementia Procedures [place] OFFICE/OUTPATIENT [facility] 60 MINUTES Sohan Eden DO [address] [place] [address] Fantasma Branham, PhD [address] [place] [id number] Referral ID Status Reason Start Date Expiration Date Visits Requested Visits Authorized [id number] Pending Review Specialty Services Required 04/11/2024 10/08/2024 1 1 [facility] Summary Purpose Family History Unknown Family Member Name Dates Details : [...] to establish care. Previous Dr. Seaman in [facility] last seen 08/2021. He was recently released [...] content) DATE CREATED AUTHOR 08/25/2021 [facility] DATE CREATED AUTHOR AUTHOR'S ORGANIZ ATION 10/23/2021 [employer] DATE CREATED AUTHOR AUTHOR'S ORGANIZ ATION 12/13/2021 [facility] DATE CREATED AUTHOR AUTHOR'S ORGANIZ ATION 04/08/2022 [employer] DATE CREATED AUTHOR AUTHOR'S ORGANIZ ATION 10/08/2022 [facility] DATE CREATED AUTHOR AUTHOR'S ORGANIZ ATION 02/08/2023 [facility] DATE CREATED AUTHOR AUTHOR'S ORGANIZ ATION 04/16/2024 [facility] DATE CREATED AUTHOR AUTHOR'S ORGANIZ ATION 09/12/2024 [facility] dical Specialists EPIC REASON FOR VISIT (unrecogniz ed section and content) Reason Comments Suspicious Skin Lesion Specialty Diagnoses / Procedures Referred By Ed tobar Referred To Contact Dermatology Diagnoses Seborrheic keratosis of scalp Procedures AK OFFICE/OUTPATIENT NEW HIGH MDM 60 MINUTES Annette Whitfield NP [address] [place] [address] Phone: tel: fax: Yung Nicole, STREET SPRINKLER-BLENDER / COOK [address] [facility] [address] [place] [address] Phone: tel: fax: Referral ID Status Reason Start Date Expiration Date V isits Requested Visits Authorized [id number] Closed Specialty Services Required 05/14/2024 11/10/2024 1 1 Reason Comments 6 month f/u Review labs. Back Pain Care Teams (unrecognized sec tion and content) Lockstitch Sleeve Setter Relationship Specialty Start Date End Date Ailyn Baez MD [address] [place] [address] PCP - General Family Medicine 02/23/23 Annette Whitfield, BUS AND TROLLEY DISPATCHER [address] [place] [address] Nurse Practitioner Family Medicine 08/01/22 Lockstitch Sleeve Setter Relationship Specialty Start Date End Date Ailyn Baez MD [address] [place] [address] PCP - General Family Medicine 02/23/23 Annette Whitfield NP [address] [place] [address] Nurse Practitioner Family Medicine 08/01/22 Lockstitch Sleeve Setter Relationship Specialty Start Date End Date Ailyn Baez MD [address] [place] [address] PCP - General Family Medicine 02/23/23 Annette Whitfield, BUS AND TROLLEY DISPATCHER [address] [place] [address] Nurse Practitioner Family Medicine 08/01/22 Lockstitch Sleeve Setter Relationship Specialty Start Date End Date Dilip Hensley MD [address] [place] [address] PCP - General Family Medicine 05/14/24 Annette Whitfield, KELL [address] [place] [address] Nurse Practitioner Family Medicine 08/01/22 Lockstitch Sleeve Setter Relationship Specialty Start Date End Date Dilip Hensley MD [address] [place] [address] PCP - General Family Medicine 05/14/24 Annette Whitfield NP [address] [place] [address] Nurse Practitioner Family Medicine 08/01/22 Lockstitch Sleeve Setter Relationship Specialty Start Date End Date Dilip Hensley MD [address] [place] [address] PCP - General Family Medicine 05/14/24 Annette Whitfield NP [address] [place] [address] Nurse Practitioner Family Medicine 08/01/22 Lockstitch Sleeve Setter Relationship Specialty Start Date End Date Dilip Hensley MD [address] [place] [address] PCP - General Family Medicine 05/14/24 Annette Whitfield NP [address] [place] [address] Nurse Practitioner Family Medicine 08/01/22 Lockstitch Sleeve Setter Relationship Specialty Start Date End Date Dilip Hensley MD [address] [place] [address] PCP - General Family Medicine 05/14/24 Annette Whitfield NP [address] [place] [address] Nurse Practitioner Family Medicine 08/01/22 Lockstitch Sleeve Setter Relationship Specialty Start Date End Date Dilip Hensley MD [address] [place] [address] PCP - General Family Medicine 05/14/24 Annette Whitfield NP [address] [place] [address] Nurse Practitioner Family Medicine 08/01/22 Lockstitch Sleeve Setter Relationship Specialty Start Date End Date Ailyn Baez DO [address] [place] [address] PCP - MSSP ACO Attributed Provider 08/01/21 Ailyn Baez DO [address] [place] [address] PCP - General Family Medicine 10/06/22 10/06/22 Lockstitch Sleeve Setter Relationship Specialty Start Date End Date Ailyn Baez MD [address] [place] [address] PCP - General Family Medicine 02/23/23 Annette Whitfield NP [address] [place] [address] Nurse Practitioner Family Medicine 08/01/22 Lockstitch Sleeve Setter Relationship Specialty Start Date End Date Ailyn Baez MD [address] [place] [address] PCP - General Family Medicine 02/23/23 Annette Whitfield NP [address] [place] [address] Nurse Practitioner Family Medicine 08/01/22 Lockstitch Sleeve Setter Relationship Specialty Start Date End Date Dilip Hensley MD [address] [place] [address] PCP - General Family Medicine 05/14/24 Annette Whitfield NP [address] [place] [address] Nurse Practitioner Family Medicine 08/01/22 Lockstitch Sleeve Setter Relationship Specialty Start Date End Date Dilip Hensley MD [address] [place] [address] PCP - General Family Medicine 05/14/24 Annette Whitfield NP [address] [place] [address] Nurse Practitioner Family Medicine 08/01/22 Lockstitch Sleeve Setter Relationship Specialty Start Date End Date Dilip Hensley MD [address] [place] [address] PCP - General Family Medicine 05/14/24 Annette Whitfield NP [address] [place] [address] Nurse Practitioner Family Medicine 08/01/22 Lockstitch Sleeve Setter Relationship Specialty Start Date End Date Dilip Hensley MD [address] [place] [address] PCP - General Family Medicine 05/14/24 Annette Whitfield NP [address] [place] [address] Nurse Practitioner Family Medicine 08/01/22 Lockstitch Sleeve Setter Relationship Specialty Start Date End Date Dilip Hensley MD [address] [place] [address] PCP - General [facility] 05/14/24 Annette Whitfield NP [address] [place] [address] Nurse Practitioner Family [facility] 08/01/22 FOR RECORDS PERTAINING TO PATIENTS [...] BE BASED ON THE PRIMARY CLINICAL RECORDS. [facility] [employer] [facility]. provides no warranty or guarantee of the accuracy or completeness of information in this document.
[2024-10-16 12:19] LABS: Alanine Aminotransferase 41 U/L (16-63); Albumin Globulin Ratio 0.9; Albumin Level 3.3 g/dL (3.4-5.0); Alkaline Phosphatase 153 U/L (46-116); Aspartate Amino Transferase 33 U/L (15-37); Bilirubin Direct 0.2 mg/dL (0.0-0.2); Bilirubin Total 0.7 mg/dL (0.2-1.0); Gamma Glutamyl Transpeptidase 186 U/L (15-85); Globulin 3.7 g/dL
== END 2024-10-16 11:29 | disposition home or self-care (01) ==
LOC: LAB 11:29
PROVIDERS: PCP Nurse Practitioner; Visit Provider Nurse Practitioner
DX: R74.8 Abnormal levels of other serum enzymes (principal)
CPT/HCPCS: 36415; 80076; 82977

== ENCOUNTER 2025-03-06 11:04 | Emergency (ER) | payer MEDICARE, BC, SELFPAY ==
[2025-03-06 11:09] VITALS: BP 169/87; PULSE 73; TEMP 36.8; O2SAT 93; BMI 26.1
--- OUTSIDE RECORDS SUMMARY | 2025-03-06 11:11 | XMS_ITS | Encounter Summary ---
Author Organization [facility] Address [address] [place] [address] Phone Care Team Providers Care Card Runner Name Role Phone Annette Whitfield Primary Care Provider Encounter Details Date Type Department Care Team (Late st Contact Info) Description 09/04/2023 Patient Risk Score ACO Care Management [address] [place] [address] Social History Tobacco Use Types Packs/Day Years Used Date Smoking Tobacco: Never Smokeless Tobacco: Former Alcohol Use Standard Drinks/Week Comments Not Currently 0 (1 standard drink = 0.6 oz pur e alcohol) PHQ-2 Answer Date Recorded Patient Health Questionnaire-2 Score 0 10/06/2022 Sex and Gender Information Value Date Recorded Sex Assigned at Not on file Legal Sex Male 1:30 PM EST Gender Identity Not on file Sexual Orientation Not on file documented as of this encounter Plan of Treatment Not on file documented as of this encounter Visit Diagnoses Not on filedocumented in this encounter Additional Health Concerns Assessment Noted Time A fall risk assessment has been complete d for the patient 10/06/2022 1:18 PM EST documented as of this encounter Care Teams Card Runner Relationship Specialty Start Date End Date Annette Whitfield APRN-CNP [address] [place] [address] PCP - General 05/04/24 documented as of this encounter
--- OUTSIDE RECORDS SUMMARY | 2025-03-06 11:11 | XMS_ITS | Encounter Summary ---
Author Organization [facility] Address [address] [place] [address] Phone Care Team Providers Care Anode Crew Supervisor Name Role Phone Alex Lion DO Unavailable Alex Lion DO Primary Care Provider Annette Whitfield GAME PROTECTOR-EVAPORATOR OPERATOR MOLASSES Primary Care Provider Encounter Details Date Type Department Care Team ([facility] st Contact Info) Description 03/03/2023 Patient Risk Score ACO Care Management [address] [facility] [address] [place] [address] Social History Tobacco Use Types Packs/Day Years [...] documented as of this encounter Care Teams Anode Crew Supervisor Relationship Specialty Start Date End Date Alex Lion DO [address] [facility] [address] [place] [address] PCP - [facility] ACO Attributed Provider 08/01/21 04/30/23 Alex Lion DO [address] [address] PCP - General Family Medicine 02/07/23 03/27/23 Annette Whitfield, GAME PROTECTOR-EVAPORATOR OPERATOR MOLASSES [address] [place] [address] PCP - General 05/04/24 documented as of this encounter
--- OUTSIDE RECORDS SUMMARY | 2025-03-06 11:11 | XMS_ITS | Encounter Summary ---
Author Organization [facility] Address [address] [place] [address] Phone Care Team Providers Care Casket Liner Name Role Phone Annette Whitfield Primary Care Provider Encounter Details Date Type Department Care Team (Late st Contact Info) Description 08/03/2023 Patient Risk Score ACO Care Management [address] [place] [address] Social History Tobacco Use Types [...] documented as of this encounter Care Teams Casket Liner Relationship Specialty Start Date End Date Annette Whitfield APRN-CNP [address] [place] [address] PCP - General 05/04/24 documented as of this encounter
--- OUTSIDE RECORDS SUMMARY | 2025-03-06 11:11 | XMS_ITS | Encounter Summary ---
Author Organization [facility] Address [address] [place] [address] Phone Care Team Providers Care Chemistry Lecturer Name Role Phone Alex Lion DO Primary Care Provider Alex Lion DO Unavailable [phone] Alex Lion DO Primary Care Provider Alex Lion DO Primary Care Provider [facility] Primary Care Provider Encounter Details Date Type Department Care Team (Late st Contact Info) Description 04/08/2022 Orders Only [facility] [address] [place] [address] Conversion, Onbase Social History Tobacco Use Types Packs/Day Years Used Date Smoking Tobacco: Never Assessed Sex and Gender Information Value Date Recorded Sex Assigned at Not on file Legal Sex Male 1:30 PM EST Gender Identity Not on file Sexual Orientation Not on file documented as of this encounter Plan of Treatment Scheduled Orders Name Type Priority Associated Diagnoses Orde r Schedule OUTSIDE LAB SCAN Lab Ordered: 04/08/2022 documented as of this encounter Visit Diagnoses Not on filedocumented in this encounter Care Teams Chemistry Lecturer Relationship Specialty Start Date End Date Alex Lion DO [address] [facility] [address] [place] [address] PCP - General 09/09/21 10/05/22 Alex Lion DO [address] [place] [address] [address] [place] [address] PCP - MSSP ACO Attributed Provider 08/01/21 04/30/23 Alex Lion DO [address] [place] [address] PCP - General Family Medicine 10/06/22 10/06/22 Alex Lion DO [address] [place] [address] PCP - General Family Medicine 02/07/23 03/27/23 Annette Whitfield, CROSSBAND LAYER-PATHOLOGY COLLECTOR [address] [place] [address] PCP - General 05/04/24 documented as of this encounter
--- OUTSIDE RECORDS SUMMARY | 2025-03-06 11:11 | XMS_ITS | Encounter Summary ---
Author Organization [facility] Address [address] [place] [address] Care Team Providers Care Maternal Child Nurse Name Role Phone Alex Lion MD Primary Care Provider Annette Whitfield CITY DISTRIBUTION CLERK Unavailable [phone] Dilip Hensley MD Primary Care Provider Encounter Details Date Type Department Care Team (Late Contact Info) Description 08/09/2023 Clinisync Result Encounter [facility] External Department Unsolicited Annette Whitfield NP [address] [place] [address] Social History Tobacco Use Types Packs/Day Years Used Date Smoking Tobacco: Former Cigarettes Smokeless Tobacco: Never Alcohol Use Standard Drinks/Week Comments Never 0 (1 standard drink = 0.6 oz pure alcohol) caffeine intake: more than 4 cups per day. Sex and Gender Information Value Date Recorded Sex Assigned at Not on file Legal Sex Male 10:59 PM EDT Gender Identity Not on file Sexual Orientation Not on file documented as of this encounter Plan of Treatment Upcoming Encounters Date Type Department Care Team ([facility] Contact Info) Description 04/04/2025 1:30 PM EDT [facility] [address] [place] [address] Annette Whitfield NP [address] [place] [address] 2025 1:00 PM EST Office Visit [facility] [address] [place] [address] Annette Whitfield, KELL [address] [place] [address] documented as of this encounter Procedures Procedure Name Priority Date/Time Associated Diagnosis Comments XR CHEST 2V 08/09/2023 3:32 PM EST ALL BASIC METABOLIC PANEL Routine 08/09/2023 3:15 PM EST documented in this encounter Results * XR CHEST 2V (08/09/2023 3:32 PM EST) Anatomical Region Laterality Modality Other 08/09/2023 3:32 PM EST Narrative 08/09/2023 3:35 PM EST [address] [address] XRay Report Signed Patient: FIDEL HERNDON MR#: [id number] : 1935 Acct:[id number] Age/Sex: 88 / M ADM Date: 08/09/23 Loc: LAB Attending Dr: Annette Whitfield NP Ordering Physician: Annette Whitfield NP Date of Service: 08/09/23 Procedure(s): XR chest 2V Accession Number(s): [id number] cc: Annette Whitfield NP [address] [address] Patient Name: FIDEL HERNDON MRN: [id number] date: 1935 Sex: M Assigned Patient Location: LAB Current Patient Location: LAB Accession/Order Number: [id number] Exam Date: 08/09/2023 15:20 Report Date: 08/09/2023 15:32 At the request of: ANNETTE WHITFIELD Procedure: XR chest 2V EXAM: XR chest 2V HISTORY: dyspnea R06.00 COMPARISON: 08/21/2021 TECHNIQUE: Upright PA and lateral chest x-ray FINDINGS: Shallow inspiration. A small amount of atelectasis or scarring is seen at the right lung base. There has been interval improvement of the aeration at both lung bases. No acute infiltrate, effusion or pneumothorax is identified. A calcified granuloma is seen at the right apex. Some degenerative changes are seen in the spine. The heart is not significantly enlarged and the vasculature is not distended. XR/XR chest 2V IMPRESSION: Improved depth of inspiration and improved aeration at the lung bases. A small amount of linear atelectasis or scarring persist at the right lung base and there is evidence of previous granulomatous disease. There is no evidence of overt cardiac decompensation or an acute infiltrate. Electronically authenticated by: AKIL PORTILLO Date: 08/09/2023 15:32 Dictated By: Akil Portillo M.D. Signed By: 08/09/23 1535 DD/ 1532 TD/TT: Aircraft Life Support Fitter: Procedure Note Radiology, Radiologist, MD - 08/09/2023 [place] [address] XRay Report Signed Patient: FIDEL HERNDON FMR#: [id number] : 1935cct:[id number] Age/Sex: 88 / MADM Date: 08/09/23 Loc: LAB Attending Dr: Annette Whitfield NP Ordering Physician: Annette Whitfield NP Date of Service: 08/09/23 Procedure(s): XR chest 2V Accession Number(s): [id number] cc: Annette Whitfield NP The [address] [address] Patient Name: FIDEL HERNDON MRN: [id number] date: 1935 Sex: M Assigned Patient Location: LAB Current Patient Location: LAB Accession/Order Number: [id number] Exam Date: 08/09/2023 15:20 Report Date: 08/09/2023 15:32 At the request of: ANNETTE WHITFIELD Procedure: XR chest 2V EXAM: XR chest 2V HISTORY: dyspnea R06.00 COMPARISON: 08/21/2021 TECHNIQUE: Upright PA and lateral chest x-ray FINDINGS: Shallow inspiration. A small amount of atelectasis or scarringis seen at the right lung base. There has been interval improvement of the aeration at both lung bases. No acute infiltrate, effusion or pneumothoraxis identified. A calcified granuloma is seen at the right apex. Somedegenerative changes are seen in the spine. The heart is not significantly enlarged andthe vasculature is not distended. XR/XR chest 2V IMPRESSION: Improved depth of inspiration and improved aeration at the lung bases. Asmall amount of linear atelectasis or scarring persist at the right lung baseand there is evidence of previous granulomatous disease. There is no evidenceof overt cardiac decompensation or an acute infiltrate. Electronically authenticated by: AKIL PORTILLO Date: 08/09/2023 15:32 Dictated By: Akil Portillo M.D. Signed By:08/09/23 1535 DD/ 1532 TD/TT: Aircraft Life Support Fitter: us Annette Whitfield NP [facility] Final Result * (ABNORMAL) ALL BASIC METABOLIC PANEL (08/09/2023 3:15 PM EST) SODIUM 136 136 - 145 mmol/L [facility] POTASSIUM 3.8 3.5 - 5.1 mmol/L [facility] CHLORIDE 98 98 - 107 mmol/L [facility] CARBON DIOXIDE 33.9(H) 21.0 - 32.0 mmol/L [facility] ANION GAP 7.9 [facility] GLUCOSE 111(H) 74 - 106 mg/dL [facility] BLOOD UREA NITROGEN 14.0 7.0 - 18.0 mg/dL [facility] CREATININE 0.91 0.70 - 1.30 mg/dL [facility] EGFR-AF ARMENIAN >60 >=60 [facility] TBH EGFR-NON AF ARMENIAN >60 >=60 [facility] BUN CREATININE RATIO 15.4 [facility] CALCIUM 9.1 8.5 - 10.1 mg/dL [facility] 08/09/2023 3:15 PM EST 08/09/2023 3:15 PM EST Narrative [facility] - 08/09/2023 3:48 PM EST Annette Whitfield NP [facility] Final Result [facility] documented in this encounter Visit Diagnoses Not on filedocumented in this encounter Care Teams Maternal Child Nurse Relationship Specialty Start Date End Date Alex Lion MD PCP - General Family Medicine 02/23/23 05/13/24 Dilip Hensley MD [address] [place] [address] PCP - General Family Medicine 05/14/24 Annette Whitfield NP [address] [place] [address] Nurse Practitioner Family Medicine 08/01/22 documented as of this encounter
--- OUTSIDE RECORDS SUMMARY | 2025-03-06 11:11 | XMS_ITS | Encounter Summary ---
Author Organization [facility] Address [address] [facility] [place] [address] Care Team Providers Care Developer Designer Name Role Phone Annette Whitfield BENCH EXAMINER Unavailable [phone] Dilip Hensley MD Primary Care Provider [phone] Encounter Details Date Type Department Care Team (Late Contact Info) Description 06/15/2024 Clinisync Result Encounter [facility] External Department Unsolicited Annette Whitfield NP [address] [address] Social History Tobacco Use Types Packs/Day Years Used Date Smoking Tobacco: Former Cigarettes Smokeless Tobacco: Never Alcohol Use Standard Drinks/Week Comments Never 0 (1 standard drink = 0.6 oz pure alcohol) caffeine intake: more than 4 cups per day. PHQ-2 Answer Date Recorded Patient Health Questionnaire-2 Score 0 06/14/2024 Sex and Gender Information Value Date Recorded Sex Assigned at Not on file Legal Sex Male 10:59 PM EDT Gender Identity Not on file Sexual Orientation Not on file documented as of this encounter Plan of Treatment Upcoming Encounters Date Type Department Care Team ([facility] Contact Info) Description 04/04/2025 1:30 PM EDT Office Visit [facility] [address] [place] [address] Annette Whitfield NP [address] [place] [address] 2025 1:00 PM EST Office Visit [facility] [address] [place] [address] Annette Whitfield, KELL [address] [place] [address] documented as of this encounter Procedures Procedure Name Priority Date/Time Associated Diagnosis Comments XR CHEST 2V 06/15/2024 3:31 PM EST documented in this encounter Results * XR CHEST 2V (06/15/2024 3:31 PM EST) Anatomical Region Laterality Modality Other 06/15/2024 3:31 PM EST Narrative 06/15/2024 3:34 PM EST The [address] [address] XRay Report Signed Patient: FIDEL HERNDON MR#: [id number] : 1935 Acct:[id number] Age/Sex: 88 / M ADM Date: 06/15/24 Loc: LAB Attending Dr: Annette Whitfield BENCH EXAMINER Ordering Physician: Annette Whitfield NP Date of Service: 06/15/24 Procedure(s): XR chest 2V Accession Number(s): [id number] cc: Annette Whitfield NP [address] [address] Patient Name: FIDEL HERNDON MRN: [id number] date: 1935 Sex: M Assigned Patient Location: LAB Current Patient Location: LAB Accession/Order Number: [id number] Exam Date: 06/15/2024 14:35 Report Date: 06/15/2024 15:31 At the request of: ANNETTE WHITFIELD Procedure: XR chest 2V EXAM: XR chest 2V HISTORY: Pleural Effusion . Follow-up study. COMPARISON: 08/09/2023 TECHNIQUE: Upright PA and lateral chest x-ray FINDINGS: Relatively shallow inspiration. A very small amount of linear atelectasis or scarring persist at the right lung base laterally. No acute infiltrate, effusion or pneumothorax is identified. The heart is not enlarged and the vasculature is not distended. The osseous structures are grossly intact. XR/XR chest 2V IMPRESSION: No acute infiltrate or evidence of cardiac decompensation. Mild chronic changes are noted. There is no evidence of an effusion. The overall appearance of the chest is essentially unchanged. Electronically authenticated by: AKIL PORTILLO Date: 06/15/2024 15:31 Dictated By: Akil Portillo M.D. Signed By: 06/15/24 1534 DD/ 30 TD/TT: Sheep And Wheat Farmer: Procedure Note Radiology, Radiologist, - 06/15/2024 [place] [address] XRay Report Signed Patient: FIDEL HERNDON FMR#: [id number] : 1935cct:[id number] Age/Sex: 88 / MADM Date: 06/15/24 Loc: LAB Attending Dr: Annette Whitfield NP Ordering Physician: Annette Whitfield NP Date of Service: 06/15/24 Procedure(s): XR chest 2V Accession Number(s): [id number] cc: Annette Whitfield NP The [place] [id number] Patient Name: FIDEL HERNDON MRN: [id number] date: 1935 Sex: M Assigned Patient Location: LAB Current Patient Location: LAB Accession/Order Number: [id number] Exam Date: 06/15/2024 14:35 Report Date: 06/15/2024 15:31 At the request of: ANNETTE WHITFIELD Procedure: XR chest 2V EXAM: XR chest 2V HISTORY: Pleural Effusion . Follow-up study. COMPARISON: 08/09/2023 TECHNIQUE: Upright PA and lateral chest x-ray FINDINGS: Relatively shallow inspiration. A very small amount of linear atelectasis or scarring persist at the right lung base laterally. No acute infiltrate, effusion or pneumothorax is identified. The heart is notenlarged and the vasculature is not distended. The osseous structures are grossly intact. XR/XR chest 2V IMPRESSION: No acute infiltrate or evidence of cardiac decompensation. Mild chronic changes are noted. There is no evidence of an effusion. The overall appearance ofthe chest is essentially unchanged. Electronically authenticated by: AKIL PORTILLO Date: 06/15/2024 15:31 Dictated By: Akil Portillo M.D. Signed By:06/15/24 1534 DD/ 1531 TD/TT: Sheep And Wheat Farmer: us Annette Whitfield NP [facility] Final Result documented in this encounter Visit Diagnoses Not on filedocumented in this encounter Additional Health Concerns Assessment Noted Time PHQ-9 Depression Total Score: 1 06/14/20 24 1:14 PM EST documented as of this encounter Care Teams Developer Designer Relationship Specialty Start Date End Date Dilip Hensley MD [address] [place] [address] PCP - General Family Medicine 05/14/24 Annette Whitfield NP [address] [place] [address] Nurse Practitioner Family Medicine 08/01/22 documented as of this encounter
--- OUTSIDE RECORDS SUMMARY | 2025-03-06 11:11 | XMS_ITS | Encounter Summary ---
Author Organization [facility] Address [address] [place] [address] Phone Care Team Providers Care Home Energy Auditor Name Role Phone Annette Whitfield APRN-OUTBOARD MOTOR INSPECTOR Primary Care Provider Reason for Visit * Reason Comments Med Refill Encounter Details Date Type Department Care Team ([facility] st Contact Info) Description 09/03/2023 Refill [facility] Family Medicine [address] [place] [address] Alex Lion, DO [address] [facility] [address] [place] [address] Primary hypertension Social History Tobacco Use Types Packs/Day Years [...] on file documented as of this encounter Miscellaneous Notes * Telephone Encounter - Bhavya Mclean MA - 09/05/2023 3:09 PM EST Please deny-no longer being seen here documented in this encounter Plan of Treatment Not on file documented as of this encounter Visit Diagnoses Diagnosis Primary hypertension Unspecified essential hypertension documented in this encounter Additional Health Concerns Assessment Noted Time A fall risk assessment has been complete d for the patient 10/06/2022 1:18 PM EST documented as of this encounter Care Teams Home Energy Auditor Relationship Specialty Start Date End Date Annette Whitfield, WOOD CUTTER-OUTBOARD MOTOR INSPECTOR [address] [place] [phone] PCP - General 05/04/24 documented as of this encounter
--- OUTSIDE RECORDS SUMMARY | 2025-03-06 11:11 | XMS_ITS | Encounter Summary ---
Author Organization [facility] Address [address] [place] [address] Phone Care Team Providers Care Station Inspector Name Role Phone Alex Lion DO Primary Care Provider Alex Lion DO Unavailable Alex Lion DO Primary Care Provider Alex Lion DO Primary Care Provider [facility] Primary Care Provider Encounter Details Date Type Department Care Team (Late st Contact Info) Description 09/30/2022 Orders Only [email or web address] LEGACY [address] [place] [address] Conversion, Onbase Social History Tobacco Use Types [...] r Schedule OUTSIDE LAB SCAN Lab Ordered: 09/30/2022 documented as of this encounter Visit Diagnoses Not on filedocumented in this encounter Care Teams Station Inspector Relationship Specialty Start Date End Date Alex Lion DO [address] [place] [address] [address] [place] [address] PCP - General 09/09/21 10/05/22 Alex Lion DO [address] [place] [address] [address] [place] [address] PCP - MSSP ACO Attributed Provider 08/01/21 04/30/23 Alex Lion DO [address] [place] [address] PCP - General Family Medicine 10/06/22 10/06/22 Alex Lion DO [address] [place] [address] PCP - General Family Medicine 02/07/23 03/27/23 Annette Whitfield, WEDDING MAKEUP ARTIST-SENIOR JAVA WEB APPLICATION DEVELOPER [address] [place] [address] PCP - General 05/04/24 documented as of this encounter
--- OUTSIDE RECORDS SUMMARY | 2025-03-06 11:11 | XMS_ITS | Encounter Summary ---
Author Organization [facility] Address [address] [place] [address] Care Team Providers Care Program/Music Director Name Role Phone Alex Lion MD Primary Care Provider Annette Whitfield NP Unavailable [phone] Dilip Hensley MD Primary Care Provider [phone] Encounter Details Date Type Department Care Team ([facility] Contact Info) Description 07/13/2023 Abstract [facility] [address] [place] [address] Annette Whitfield NP [address] [place] [address] Social History Tobacco Use Types Packs/Day Years [...] Upcoming Encounters Date Type Department Care Team ([facility] Contact Info) Description 04/04/2025 1:30 PM EDT Office Visit [facility] [address] [place] [address] Annette Whitfield NP [address] [place] [phone] 2025 1:00 PM EST Office Visit [facility] [address] [place] [address] Annette Whitfield NP [address] [place] [phone] documented as of this encounter Visit Diagnoses Not on filedocumented in this encounter Care Teams Program/Music Director Relationship Specialty Start Date End Date Alex Lion MD PCP - General Family Medicine 02/23/23 05/13/24 Dilip Hensley MD [address] [place] [phone] PCP - General Family Medicine 05/14/24 Annette Whitfield NP [address] [place] [address] Nurse Practitioner Family Medicine 08/01/22 documented as of this encounter
--- OUTSIDE RECORDS SUMMARY | 2025-03-06 11:11 | XMS_ITS | Encounter Summary ---
Author Organization [facility] Address [address] [place] [address] Phone Care Team Providers Care Boat Finisher Name Role Phone Alex Lion DO Primary Care Provider Alex Lion DO Unavailable Alex Lion DO Primary Care Provider Alex Lion DO Primary Care Provider [phone] Annette Whitfield [facility] Primary Care Provider Encounter Details Date Type Department Care Team (Late st Contact Info) Description 09/18/2021 Orders Only [facility] LEGACY [address] [place] [address] Conversion, Onbase Social History Tobacco Use Types [...] r Schedule OUTSIDE LAB SCAN Lab Ordered: 09/18/2021 documented as of this encounter Visit Diagnoses Not on filedocumented in this encounter Care Teams Boat Finisher Relationship Specialty Start Date End Date Alex Lion DO [address] [facility] [address] [place] [address] PCP - General 09/09/21 10/05/22 Alex Lion DO [address] [place] [address] [address] [place] [address] PCP - MSSP ACO Attributed Provider 08/01/21 04/30/23 Alex Lion DO [address] [place] [address] PCP - General Family Medicine 10/06/22 10/06/22 Alex Loin DO [address] [place] [address] PCP - General Family Medicine 02/07/23 03/27/23 Annette Whitfield, PARTS SALES COUNTERPERSON-MAP MAKER [address] [place] [address] PCP - General 05/04/24 documented as of this encounter
--- OUTSIDE RECORDS SUMMARY | 2025-03-06 11:11 | XMS_ITS | Encounter Summary ---
Author Organization [facility] Address [address] [place] [address] Care Team Providers Care Pc Network Technician Name Role Phone Alex Lion MD Primary Care Provider [phone] Annette Whitfield HAND CARVER Unavailable [phone] Dilip Hensley MD Primary Care Provider Encounter Details Date Type Department Care Team (Late Contact Info) Description 03/26/2020 Abstract [facility] [address] [place] [phone] Annalee Hamilton, [facility] [address] [facility] [place] [address] Social History Tobacco Use Types Packs/Day Years Used Date Smoking Tobacco: Never Assessed Sex and Gender Information Value Date Recorded Sex Assigned at Not on file Legal Sex Male 10:59 PM EDT Gender Identity Not on file Sexual Orientation Not on file documented as of this encounter Plan of Treatment Upcoming Encounters Date Type Department Care Team (Late Contact Info) Description 04/04/2025 1:30 PM EDT Office Visit [facility] [address] [place] [address] Annette Whitfield, HAND CARVER [address] [place] [address] 2025 1:00 PM EST Office Visit [facility] [address] [place] [phone] Annette Whitfield, KELL [address] [place] [phone] documented as of this encounter Visit Diagnoses Not on filedocumented in this encounter Care Teams Pc Network Technician Relationship Specialty Start Date End Date Alex Lion MD PCP - General Family Medicine 02/23/23 05/13/24 Dilip Hensley MD [address] [place] [phone] PCP - General Family Medicine 05/14/24 Annette Whitfield NP [address] [place] [address] Nurse Practitioner Family Medicine 08/01/22 documented as of this encounter
--- OUTSIDE RECORDS SUMMARY | 2025-03-06 11:11 | XMS_ITS | Encounter Summary ---
Author Organization [facility] Address [address] [place] [address] Care Team Providers Care Butcher'S Assistant Name Role Phone Alex Lion MD Primary Care Provider Annette Whitfield NP Unavailable [phone] Dilip Hensley MD Primary Care Provider [phone] Encounter Details Date Type Department Care Team (Late Contact Info) Description 04/22/2023 Abstract [facility] [address] [place] [phone] Annalee Hamilton, [facility] [address] [facility] [place] [address] Social History Tobacco Use Types Packs/Day Years Used Date Smoking Tobacco: Former Cigarettes Tobacco Cessation:Counseling Given: Not Answered Alcohol Use Standard Drinks/Week Comments Not Asked 0 (1 standard drink = 0.6 oz pure alcohol) caffeine intake: more than 4 cups per day. Sex and Gender Information Value Date Recorded Sex Assigned at Not on file Legal Sex Male 10:59 PM EDT Gender Identity Not on file Sexual Orientation Not on file documented as of this encounter Plan of Treatment Upcoming Encounters Date Type Department Care Team ([facility] Contact Info) Description 04/04/2025 1:30 PM EDT [facility] [address] [place] [address] Annette Whitfield NP [address] [place] [address] 2025 1:00 PM EST Office Visit [facility] [address] [place] [address] Annette Whitfield NP [address] [place] [phone] documented as of this encounter Visit Diagnoses Not on filedocumented in this encounter Care Teams Butcher'S Assistant Relationship Specialty Start Date End Date Alex Lion MD PCP - General Family Medicine 02/23/23 05/13/24 Dilip Hensley MD [address] [place] [phone] PCP - General Family Medicine 05/14/24 Annette Whitfield NP [address] [place] [address] Nurse Practitioner Family Medicine 08/01/22 documented as of this encounter
--- OUTSIDE RECORDS SUMMARY | 2025-03-06 11:11 | XMS_ITS | Encounter Summary ---
Author Organization [facility] Address [address] [place] [address] Care Team Providers Care Chemistry Technologist Name Role Phone Annetet Whitfield NEPHROLOGIST Unavailable [phone] Dilip Hensley MD Primary Care Provider Encounter Details Date Type Department Care Team (Late Contact Info) Description 10/16/2024 Orders Only [facility] [address] [place] [address] Annette Whitfield NP [address] [place] [address] Social History Tobacco Use Types Packs/Day Years [...] Upcoming Encounters Date Type Department Care Team ([facility] Contact Info) Description 04/04/2025 1:30 PM EDT Office Visit [facility] [address] [place] [address] Annette Whitfield NP [address] [place] [address] 2025 1:00 PM EST Office Visit [facility] [address] [place] [address] Annette Whitfield NP [address] [place] [phone] documented as of this encounter Visit Diagnoses Not on filedocumented in this encounter Additional Health Concerns Assessment Noted Time PHQ-9 Depression Total Score: 1 06/14/20 1:14 PM EST documented as of this encounter Care Teams Chemistry Technologist Relationship Specialty Start Date End Date Dilip Hensley MD [address] [place] [phone] PCP - General Family Medicine 05/14/24 Annette Whitfield NP [address] [place] [phone] Nurse Practitioner Family Medicine 08/01/22 documented as of this encounter
--- OUTSIDE RECORDS SUMMARY | 2025-03-06 11:11 | XMS_ITS | Clinical Summary ---
Author Organization [facility] Address [id number] [address] [place] [address] Care Team Providers Care Cardiac Care Nurse Name Role Phone Alex Lion DO Primary Care Provider Unava ilable Social History Tobacco Use Types Packs/Day Years Used Date Smoking Tobacco: Never Assessed Childcare Answer Date Recorded Childcare Unknown 01/10/2019 Employment Answer Date Recorded Employment Unknown 01/10/2019 Sex and Gender Information Value Date Recorded Sex Assigned at Not on file Legal Sex Male 11:40 AM EDT Gender Identity Not on file Sexual Orientation Not on file Plan of Treatment Health Maintenance Due Date Last Done Comments Depression Screening 1947 Tobacco Screening 1947 DTaP,Tdap and Td Vaccines (1 - Tdap) 1956 Zoster (Shingles) Vaccine (1 of 2) 1987 Fall Risk Screening 2002 COVID-19 Vaccine (6 2023-2 5 season) 2024 05/07/2022, 12/03/2021, 06/09/2021, Additional history exists Influenza Vaccine 04/01/2025 04/25/2022, , 05/07/2020 Medical Devices Not on file Insurance MEDICARE ANTH Care Teams Cardiac Care Nurse Relationship Specialty Start Date End Date Alex Lion DO PCP - General Internal Medicine 09/11/21
--- OUTSIDE RECORDS SUMMARY | 2025-03-06 11:11 | XMS_ITS | Clinical Summary ---
Author Organization [facility] Address [address] [place] [address] Phone Care Team Providers Care Corn Miller Name Role Phone Annette Whitfield APRN-BODY WORKER Primary Care Provider Allergies No known active allergies Medications aspirin 81 mg EC tablet Take 1 tablet (81 mg) by mouth once daily. Active oxygen (O2) therapy 2 L once daily at bedtime. Per nasal cannula 2 Active polyethylene glycol (Glycolax) 17 gram/dose powder MIX 17 GRAMS IN 8 OUNCES OF WATER AND DRINK ONCE DAILY 2 Active cyanocobalamin, vitamin B-12, 5,000 mcg tablet,disintegra ting Take 1 tablet by mouth 1 (one) time each day. Active carvedilol (Coreg) 25 mg tabletIndications :Primary hypertension,Christa nary artery disease involving cata[place]ba coronary artery of cata[place]ba heart without angina pectoris Take 1 tablet (25 mg) by mouth in the morning and 1 tablet (25 mg) before bedtime. 180 tablet 3 3 Active hydroCHLOROthiazi de (HYDRODiuril) 25 mg tabletIndications :Primary hypertension Take 1 tablet (25 mg) by mouth once daily. 90 tablet 3 3 Active tiZANidine (Zanaflex) 4 mg tabletIndications :Acute midline low back pain without sciatica Take 1 tablet (4 mg) by mouth every 6 hours if needed for muscle spasms for up to 10 days. 30 tablet 3 Active furosemide (Lasix) 20 mg tabletIndications :Leg swelling TAKE 1 TABLET BY MOUTH ONCE DAILY NEEDED for edema. Stop once swelling is resolved. If swelling reoccurs, start taking again. 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 TAKE 1 TABLET BY MOUTH EVERY DAY 90 tablet 3 3 Active finasteride (Proscar) 5 mg tabletIndications :Benign prostatic hyperplasia with weak urinary stream TAKE 1 TABLET BY MOUTH DAILY 90 tablet 3 4 Active Active Problems Problem Noted Date Diagnosed Date Type 2 diabetes mellitus wit hout complication, without long-term current use of insulin 10/06/2022 B12 deficiency 08/24/2022 Benign prostatic hyperplasia with weak urinary s tream 08/24/2022 Chronic constipation 08/24/2022 COPD (chronic obstructive pulmonary disease) (Mu lti) 08/24/2022 Assessment & Plan (10/06/2022 1:27 PM EST): Continue to follow with pulmonology as recommended. 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 08/24/2022 HTN (hypertension) 08/24/2022 Hypercholesteremia 08/24/2022 Insomnia 08/24/2022 Leg swelling 08/24/2022 Obstructive sleep apnea, adult 08/24/2022 Resolved Problems Problem Noted Date Diagnosed Date Resolved Date Glucose intolerance (impaire d glucose tolerance) 08/24/2022 10/06/2022 Immunizations Immunization Administration Dates Next Due Flu vaccine (IIV4), preserva tive free *Check age/dose* 04/25/2022 Flu vaccine, quadrivalent, n o egg protein, age 6 month or greater (FLUCELVAX) 06/23/2021,05/07/2020 Influenza, Unspecified 06/23/2021 Moderna SARS-CoV-2 Vaccination 2,06/09/2021,09/30/2020,2020 Pneumococcal conjugate vacci ne, 13-valent (PREVNAR 13) 02/06/1999 Family History Medical History Relation Name Comments Blood Dyscrasia Brother Diabetes Brother Heart attack Mother Cancer Sister Dementia Sister Epilepsy Sister Relation Name Status Comments Brother Father old age Mother Sister Social History Tobacco Use Types Packs/Day Years [...] on file Sexual Orientation Not on file Last Filed Vital Signs Vital Sign Reading Time Taken Comments Blood Pressure 161/82 10/06/2022 1:03 PM EST Pulse 58 10/06/2022 1:03 PM EST Temperature 36.2 C (97.1 F) 10/06/2022 1:03 PM EST Respiratory Rate 16 10/06/2022 1:03 PM EST Oxygen Saturation 94% 10/06/2022 1:03 PM EST Inhaled Oxygen Concentration - - Weight 87.8 kg (193 lb 9.6 oz) 10/06/2022 1:03 P M EST Height 172.7 cm (5' 8 ) 10/06/2022 1:03 PM EST Body Mass Index 29.44 10/06/2022 1:03 PM EST Plan of Treatment Health Maintenance Due Date Last Done Comments Lipid Panel 1937 Diabetes: Retinopathy Screening 1945 Hepatitis A Vaccines (1 of 2 - Risk 2-dose series) 1956 DTaP/Tdap/Td Vaccines (1 - Tdap) 1959 Zoster Vaccines (1 of 2) 1987 Hepatitis B Vaccines (1 of 3 - Risk 3-dose series) 1997 RSV High Risk: (Elderly (60+) or Population) (1 - 1-dose 75+ series) 2012 Diabetes: Hemoglobin A1C 11/25/2021 08/27/2021 Diabetes: Urine Protein Screening 09/30/2023 09/29/2022 Medicare Annual Wellness Visit (AWV) 10/08/2023 10/06/2022, 10/07/2021, 06/14/2018 COVID-19 Vaccine ( season) 2024 05/13/2023, 05/07/2022, 12/03/2021, Additional history exists Influenza Vaccine (#1) 2025 , 04/25/2022, 06/23/2021, Additional history exists Pneumococcal Vaccine Completed 06/26/2019, 06/14/2018, 02/06/1999 HIB Vaccines Aged Out No longer eligi ble based on patient's age to complete this topic HPV Vaccines Aged Out No longer eligi ble based on patient's age to complete this topic IPV Vaccines Aged Out No longer eligi ble based on patient's age to complete this topic Meningococcal Vaccine Aged Out No melly jet eligible based on patient's age to complete this topic Rotavirus Vaccines Aged Out No longer eligible based on patient's age to complete this topic Insurance MEDICARE PART A AND B Advance Directives For more information, please contact: [phone] (Available ) Documents on File Type Date Recorded Patient Complex Care Nurse Expl anation Healthcare Power of Atty 10/14/2022 Care Teams Corn Miller Relationship Specialty Start Date End Date Annette Whitfield, SHOTGUN SHELL ASSEMBLY MACHINE OPERATOR-BODY WORKER [facility] [place] [address] PCP - General 05/04/24
--- OUTSIDE RECORDS SUMMARY | 2025-03-06 11:11 | XMS_ITS | Encounter Summary ---
Author Organization [facility] Address [address] [place] [address] Care Team Providers Care Manager Dialysis Name Role Phone Annette Whitfield DIRECTOR OF SCIENCE Unavailable [phone] Dilip Hensley MD Primary Care Provider [phone] Encounter Details Date Type Department Care Team ([facility] Contact Info) Description 06/18/2024 Orders Only [facility] [address] [place] [address] Annette Whitfield NP [address] [place] [address] Social History Tobacco Use Types Packs/Day Years [...] Department Care Team ([facility] Contact Info) Description 04/04/2025 1:30 PM EDT Office Visit [facility] [address] [place] [address] Annette Whitfield NP [address] [place] [address] 2025 1:00 PM EST Office Visit [facility] [address] [place] [phone] Annette Whitfield NP [address] [place] [address] documented as of this encounter Procedures Procedure Name Priority Date/Time Associated Diagnosis Comments X RAY : CHEST 2V Routine 06/18/2024 3:16 PM EST documented in this encounter Results * X RAY : CHEST 2V (06/18/2024 3:16 PM EST) Anatomical Region Laterality Modality Radiographic Prema ging Annette Whitfield NP IMG XR PROCEDURES Final Result documented in this encounter Visit Diagnoses Not on filedocumented in this encounter Additional Health Concerns Assessment Noted Time PHQ-9 Depression Total Score: 1 06/14/20 24 1:14 PM EST documented as of this encounter Care Teams Manager Dialysis Relationship Specialty Start Date End Date Dilip Hensley MD [address] [place] [phone] PCP - General Family Medicine 05/14/24 Annette Whitfield NP [address] [place] [address] Nurse Practitioner Family Medicine 08/01/22 documented as of this encounter
--- OUTSIDE RECORDS SUMMARY | 2025-03-06 11:11 | XMS_ITS | Encounter Summary ---
Author Organization [facility] Address [address] [place] [address] Phone Care Team Providers Care Recovery Auditor Name Role Phone Annette Whitfield Primary Care Provider Encounter Details Date Type Department Care Team (Late st Contact Info) Description 06/03/2023 Patient Risk Score ACO Care Management [address] [place] [address] Social History Tobacco Use Types [...] documented as of this encounter Care Teams Recovery Auditor Relationship Specialty Start Date End Date Annette Whitfield APRN-CNP [address] [place] [address] PCP - General 05/04/24 documented as of this encounter
--- OUTSIDE RECORDS SUMMARY | 2025-03-06 11:11 | XMS_ITS | Encounter Summary ---
Author Organization [facility] Address [address] [place] [address] Phone Care Team Providers Care Host And Hostess Name Role Phone Annette Whitfield Primary Care Provider Encounter Details Date Type Department Care Team (Late st Contact Info) Description 05/03/2023 Patient Risk Score ACO Care Management [address] [place] [address] Social History Tobacco Use Types [...] documented as of this encounter Care Teams Host And Hostess Relationship Specialty Start Date End Date Annette Whitfield APRN-CNP [address] [place] [address] PCP - General 05/04/24 documented as of this encounter
--- OUTSIDE RECORDS SUMMARY | 2025-03-06 11:11 | XMS_ITS | Encounter Summary ---
Author Organization [facility] Address [address] [place] [address] Phone Care Team Providers Care Organ Assembler Name Role Phone Annette Whitfield Primary Care Provider Encounter Details Date Type Department Care Team (Late st Contact Info) Description 11/03/2023 Patient Risk Score ACO Care Management [address] [place] [address] Social History Tobacco Use Types [...] documented as of this encounter Care Teams Organ Assembler Relationship Specialty Start Date End Date Annette Whitfield APRN-CNP [address] [place] [address] PCP - General 05/04/24 documented as of this encounter
--- OUTSIDE RECORDS SUMMARY | 2025-03-06 11:11 | XMS_ITS | Encounter Summary ---
Author Organization [facility] Address [address] [place] [address] Phone Care Team Providers Care Doubling Machine Operator Name Role Phone Annette Whitfield Primary Care Provider Encounter Details Date Type Department Care Team (Late st Contact Info) Description 07/03/2023 Patient Risk Score ACO Care Management [address] [place] [address] Social History Tobacco Use Types [...] documented as of this encounter Care Teams Doubling Machine Operator Relationship Specialty Start Date End Date Annette Whitfield APRN-CNP [address] [place] [address] PCP - General 05/04/24 documented as of this encounter
--- OUTSIDE RECORDS SUMMARY | 2025-03-06 11:11 | XMS_ITS | Encounter Summary ---
Author Organization [facility] Address [address] [place] [address] Care Team Providers Care Research Environmental Scientist Name Role Phone Alex Lion MD Primary Care Provider Annette Whitfield GARAGE DOOR INSTALLER Unavailable [phone] Dliip Hensley MD Primary Care Provider Encounter Details Date Type Department Care Team (Late Contact Info) Description 09/05/2023 Abstract [facility] [address] [place] [phone] Annalee Hamilton, [facility] [address] [facility] [place] [address] Social History Tobacco Use Types Packs/Day Years [...] Upcoming Encounters Date Type Department Care Team ([facility] Contact Info) Description 04/04/2025 1:30 PM EDT Office Visit [facility] [address] [place] [phone] Annette Whitfield, KELL [address] [place] [address] 2025 1:00 PM EST Office Visit [facility] [address] [place] [phone] Annette Whitfield NP [address] [place] [address] documented as of this encounter Visit Diagnoses Not on filedocumented in this encounter Care Teams Research Environmental Scientist Relationship Specialty Start Date End Date Alex Lion MD PCP - General Family Medicine 02/23/23 05/13/24 Dilip Hensley MD [address] [place] [phone] PCP - General Family Medicine 05/14/24 Annette Whitfield NP [address] [place] [phone] Nurse Practitioner Family Medicine 08/01/22 documented as of this encounter
--- OUTSIDE RECORDS SUMMARY | 2025-03-06 11:11 | XMS_ITS | Encounter Summary ---
Author Organization [facility] Address [address] [place] [address] Phone Care Team Providers Care Microelectronics Technician Name Role Phone Annette Whitfield Primary Care Provider Encounter Details Date Type Department Care Team (Late st Contact Info) Description 12/03/2023 Patient Risk Score ACO Care Management [address] [place] [address] Social History Tobacco Use Types [...] documented as of this encounter Care Teams Microelectronics Technician Relationship Specialty Start Date End Date Annette Whitfield APRN-CNP [address] [place] [address] PCP - General 05/04/24 documented as of this encounter
--- OUTSIDE RECORDS SUMMARY | 2025-03-06 11:11 | XMS_ITS | Encounter Summary ---
Author Organization [facility] Address [address] [place] [address] Phone Care Team Providers Care Police Patrol Lieutenant Name Role Phone Alex Lion DO Unavailable [phone] Alex Lion DO Primary Care Provider [phone] Annette Whitfield CONDUIT BENDER-ASSISTANT DIRECTOR OF RESIDENCE LIFE Primary Care Provider Encounter Details Date Type Department Care Team ([facility] st Contact Info) Description 01/31/2023 Patient Risk Score ACO Care Management [address] [facility] [address] [place] [phone] Social History Tobacco Use Types Packs/Day Years [...] documented as of this encounter Care Teams Police Patrol Lieutenant Relationship Specialty Start Date End Date Alex Lion DO [address] [facility] [address] [place] [address] PCP - [facility] ACO Attributed Provider 08/01/21 04/30/23 Alex Lion DO [address] [address] PCP - General Family Medicine 02/07/23 03/27/23 Annette Whitfield, CONDUIT BENDER-ASSISTANT DIRECTOR OF RESIDENCE LIFE [address] [place] [address] PCP - General 05/04/24 documented as of this encounter
--- OUTSIDE RECORDS SUMMARY | 2025-03-06 11:11 | XMS_ITS | Encounter Summary ---
Author Organization [facility] Address [address] [place] [address] Care Team Providers Care Process Control Operator Name Role Phone Alex Lion MD Primary Care Provider [phone] Annette Whitfield PALEOLOGIST Unavailable [phone] Dilip Hensley MD Primary Care Provider Encounter Details Date Type Department Care Team (Late Contact Info) Description 03/26/2020 Abstract [facility] [address] [place] [phone] Annalee Hamilton, [facility] [address] [facility] [place] [address] Social History Tobacco Use Types Packs/Day Years [...] [facility] [address] [place] [address] Annette Whitfield, PALEOLOGIST [address] [place] [address] 2025 1:00 PM EST Office Visit [facility] [address] [place] [phone] Annette Whitfield, KELL [address] [place] [phone] documented as of this encounter Visit Diagnoses Not on filedocumented in this encounter Care Teams Process Control Operator Relationship Specialty Start Date End Date Alex Lion MD PCP - General Family Medicine 02/23/23 05/13/24 Dilip Hensley MD [address] [place] [phone] PCP - General Family Medicine 05/14/24 Annette Whitfield NP [address] [place] [phone] Nurse Practitioner Family Medicine 08/01/22 documented as of this encounter
--- OUTSIDE RECORDS SUMMARY | 2025-03-06 11:11 | XMS_ITS | Encounter Summary ---
Author Organization [facility] Address [address] [place] [address] Phone Care Team Providers Care It Sales Representative Name Role Phone Annette Whitfield Primary Care Provider Encounter Details Date Type Department Care Team (Late st Contact Info) Description 10/02/2023 Patient Risk Score ACO Care Management [address] [place] [address] Social History Tobacco Use Types [...] documented as of this encounter Care Teams It Sales Representative Relationship Specialty Start Date End Date Annette Whitfield APRN-CNP [address] [place] [address] PCP - General 05/04/24 documented as of this encounter
--- OUTSIDE RECORDS SUMMARY | 2025-03-06 11:11 | XMS_ITS | Encounter Summary ---
Author Organization [facility] Address [address] [place] [address] Phone Care Team Providers Care Residential Carpenter Name Role Phone Alex Lion DO Unavailable [phone] Annette Whitfield APRN-FRED Primary Care Provider Encounter Details Date Type Department Care Team ([facility] st Contact Info) Description 04/03/2023 Patient Risk Score ACO Care Management [address] [facility] [address] [place] [address] Social History Tobacco Use Types [...] documented as of this encounter Care Teams Residential Carpenter Relationship Specialty Start Date End Date Alex Lion DO [address] [facility] [address] [place] [address] PCP - [facility] ACO Attributed Provider 08/01/21 04/30/23 Annette Whitfield APRN-CNP [address] [place] [address] PCP - General 05/04/24 documented as of this encounter
--- OUTSIDE RECORDS SUMMARY | 2025-03-06 11:11 | XMS_ITS | Encounter Summary ---
Author Organization [facility] Address [address] [place] [address] Phone Care Team Providers Care Shipping And Receiving Material Handler Name Role Phone Alex Lion DO Primary Care Provider Alex Lion DO Unavailable Alex Lion DO Primary Care Provider Alex Lion DO Primary Care Provider Annette Whitfield [facility] Primary Care Provider Encounter Details Date Type Department Care Team (Late st Contact Info) Description 12/09/2021 Orders Only [facility] [address] [place] [address] Conversion, Onbase Social History Tobacco Use Types [...] r Schedule OUTSIDE LAB SCAN Lab Ordered: 12/09/2021 documented as of this encounter Visit Diagnoses Not on filedocumented in this encounter Care Teams Shipping And Receiving Material Handler Relationship Specialty Start Date End Date Alex Lion DO [address] [place] [address] [address] [place] [address] PCP - General 09/09/21 10/05/22 Alex Lion DO [address] [place] [address] [address] [place] [address] PCP - [facility]CO Attributed Provider 08/01/21 04/30/23 Alex Lion DO [address] [place] [address] PCP - General Family Medicine 10/06/22 10/06/22 Alex Lion DO [address] [place] [address] PCP - General Family Medicine 02/07/23 03/27/23 Annette Whitfield, SHALE PLANER OPERATOR-NOVELTY CANDY MAKER [address] [place] [address] PCP - General 05/04/24 documented as of this encounter
--- OUTSIDE RECORDS SUMMARY | 2025-03-06 11:11 | XMS_ITS | Clinical Summary ---
Author Organization [facility] Address [address] [facility] [place] [address] Care Team Providers Care Engineering Consultant Name Role Phone DarrionnataliecarolinaAnnette grullon INSTRUMENT MECHANICS SUPERVISOR Unavailable [phone] Dilip Hensley MD Primary Care Provider [phone] Allergies No known active allergies Medications oxygen (O2) gas Inhale 2 L/min continuously Wear at night while sleeping Active finasteride (Proscar) 5 MG tablet Take 5 mg by mouth Daily 024 Active loratadine (Claritin) 10 MG tablet Take 10 mg by mouth Daily OTC Active atorvastatin (Lipitor) 40 MG tabletIndications :Mixed hyperlipidemia Take 1 tablet (40 mg) by mouth at bedtime 90 tablet 1 024 Active carvedilol (Coreg) 25 MG tabletIndications :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 Take with meals. 180 tablet 1 024 Active hydroCHLOROthiazi de (HYDRODiuril) 25 MG tabletIndications :Primary hypertension,Christoph a of both lower extremities,Essen tial (primary) hypertension Take 1 tablet (25 mg) by mouth in the morning. 90 tablet 1 024 Active furosemide (Lasix) 20 MG tabletIndications :Edema of both lower extremities Take 1 tablet (20 mg) by mouth every other day 45 tablet 1 025 2024 Active potassium chloride CR (Klor-Con M10) 10 MEQ ER tabletIndications :Other specified soft tissue disorders Take 1 tablet (10 mEq) by mouth Daily 90 tablet 1 025 2024 Active furosemide (Lasix) 20 MG tabletIndications :Edema of both lower extremities Take 1 tablet (20 mg) by mouth every other day 45 tablet 1 024 2024 Discontinued potassium chloride CR (Klor-Con M10) 10 MEQ ER tablet TAKE 1 TABLET BY MOUTH DAILY NEEDED when taking lasix medication DO NOT CRUSH OR CHEW 025 2024 Discontinued Active Problems Problem Noted Date Diagnosed Date Elevated alkaline phosphatase level 09/19/2024 Assessment & Plan (12/19/2024 2:33 PM EDT): Continue with GI Screening for prostate cancer 09/10/2024 Overview (09/19/2024): 09/19/24: <0.13 Encounter for subsequent [facility] wellness visit (AWV) in Medicare patient 06/14/2024 Assessment & Plan (06/14/2024 6:57 AM EST): I have reviewed Ht/Wt/BMI, I have reviewed [...] office for wellness on a yearly basis Seborrheic keratosis of scalp 05/14/2024 Assessment & Plan (05/14/2024 2:39 PM EDT): Growing in size, irritated, desires removal Refer to derm Memory impairment of gradual onset 03/13/2024 Assessment & Plan (03/13/2024 2:31 PM EDT): and pt notice difficulty with words at times may prepare a meal she has made several times, and she places in front of him, he will say I have never had this it is good No difficulty with driving Brother had alzheimers Will refer to Neuro Hearing decreased, bilateral 09/12/2023 BMI 25.0-25.9,adult 08/09/2023 Dyspnea 08/09/2023 Assessment & Plan (08/09/2023 3:06 PM EST): Swelling does look better, possible rales are chronic Will check cxr as well NAD at this time Sudden left hearing loss 04/27/2023 Asymmetrical sensorineural hearing loss 04/25/20 Type 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 Check A1c test Assessment & Plan (03/13/2024 2:30 PM EDT): Check A1c test Assessment & Plan (12/12/2023 1:23 PM EDT): Check blood sugars daily, notify if <70 [...] low in carbohydrates, and simple sugars. Check labs B12 deficiency 08/24/2022 Assessment & Plan (12/12/2023 1:23 PM EDT): Check labs HTN (hypertension) 08/24/2022 Overview (04/25/2023): 08/22/21 WBC 15.3- elevated, HGB 10.1- low, Hematocrit 31.4, Plt 199 BUN 30, CR 1.75- elevated, K+ 3.4 ALP 211, ALT 104, AST 86- elevated Last Assessment & Plan: Well controlled- 120/72 Continue current med regime- coreg, lasix, HCTZ Assessment & Plan (12/19/2024 7:09 AM EDT): Please check blood pressure daily and record DASH diet Limit caffeine Take medication as directed Contact office if chest pain, pressure, dizziness, shortness of breath, swelling legs Recommend slow position changes Current meds: carvedilol, hydrochlorothiazide Assessment & Plan (09/10/2024 6:52 AM EST): Please check blood pressure daily and record DASH diet Limit caffeine Take medication as directed Contact office if chest pain, pressure, dizziness, shortness of breath, swelling legs Recommend slow position changes Current meds: carvedilol, hydrochlorothiazide Assessment & Plan (06/14/2024 6:56 AM EST): Please check blood pressure daily and record DASH diet Limit caffeine Take medication as directed Contact office if chest pain, pressure, dizziness, shortness of breath, swelling legs Recommend slow position changes Assessment & Plan (03/13/2024 2:29 PM EDT): No med changes Check labs Assessment & Plan (12/12/2023 1:22 PM EDT): Stable, no changes at this time Check labs Assessment & Plan (08/09/2023 3:07 PM EST): Will check labs, BP better with less swelling Assessment & Plan (07/20/2023 4:34 PM EST): Slight elevation today, suspect somewhat related to fluid overload Fu in 2 weeks Benign prostatic hyperplasia with weak urinary s tream 08/24/2022 Assessment & Plan (06/14/2024 6:56 AM EST): Continue with proscar Chronic constipation 08/24/2022 Chronic obstructive pulmonary disease, unspecifi ed 08/24/2022 Overview (04/25/2023): Last Assessment & Plan: Continue to follow with pulmonology as recommended. 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 Continue GDMT- ASA, lipitor, and coreg continue risk factor modifications- heart healthy diet, regular exercise as tolerated and continue all medications. Assessment & Plan (09/10/2024 6:52 AM EST): Continue with asa, statin, b marco and blood pressure control Continue with cardiology as directed Assessment & Plan (06/14/2024 6:55 AM EST): Continue with asa, statin, b marco and blood pressure control Continue with cardiology as directed Assessment & Plan (03/13/2024 2:29 PM EDT): stable Assessment & Plan (12/12/2023 1:23 PM EDT): Cont b marco, ASA, and statin Check labs Insomnia 08/24/2022 Hypercholesteremia 08/24/2022 Edema of both lower extremities 08/24/2022 Assessment & Plan (09/10/2024 6:53 AM EST): Elevated legs as much as tolerated Compression stockings if tolerates Limit sodium Lasix and potassium takes every other day Check labs yearly and prn Assessment & Plan (06/14/2024 1:40 PM EST): Continue lasix and potassium QOD Assessment & Plan (03/13/2024 2:29 PM EDT): Continue current meds Check labs Assessment & Plan (03/13/2024 2:29 PM EDT): >>ASSESSMENT AND PLAN FOR LEG SWELLING WRITTEN ON 07/20/2023 4:35 PM BY ANNETTE WHITFIELD NP Continue compression stockings and I would like him to start taking every other day with potassium as well Fu in 2 weeks Daily weights, call office if greater than 2 pound weight gain in 24 hours Assessment & Plan (03/13/2024 2:29 PM EDT): >>ASSESSMENT AND PLAN FOR LEG SWELLING WRITTEN ON 08/09/2023 3:07 PM BY ANNETTE WHITFIELD NP Better with using diuretic every other day Check labs, and chest cxr as well Assessment & Plan (12/12/2023 1:43 PM EDT): Labs, cont current meds Bilateral artificial lens implant 08/28/2021 Cirrhosis 08/28/2021 Cough syncope 08/28/2021 Overview (04/25/2023): Last Assessment & Plan: Denied any lightheadedness, dizziness or syncope Hearing loss 08/28/2021 Hyperlipidemia 08/28/2021 Assessment & Plan (09/10/2024 6:54 AM EST): On statin therapy Check labs yearly and prn dose changes Assessment & Plan (06/14/2024 6:57 AM EST): Continue statin Assessment & Plan (12/12/2023 1:23 PM EDT): Continue statin, check labs Pelvic abscess in male 08/28/2021 Pleural effusion 08/28/2021 Assessment & Plan (06/14/2024 1:45 PM EST): Will check CXR No acute symptoms Wears oxygen Sensorineural hearing loss ( SNHL) of right ear with restricted hearing of left ear 08/28/2021 Sensorineural hearing loss, bilateral 08/28/2021 Tinnitus of left ear 08/28/2021 Syncope 08/28/2021 Resolved Problems Problem Noted Date Diagnosed Date Resolved Date Pre-diabetes 06/14/2024 09/10/2024 Assessment & Plan (06/14/2024 1:40 PM EST): Monitor for s/s of hypoglycemia (sweaty, dizziness, nausea, vomiting, or shakiness). Watch for increase in thirst, urination, or appetite. Inspect feet frequently monitoring for open wounds , and also recommend yearly eye exam. Pt should attempt to remain as physically active as chronic conditions allow, as well as trying to follow a diet low in carbohydrates, and simple sugars. Pre-diabetes 09/12/2023 09/12/2023 Other acute sinusitis 08/09/20232023 Assessment & Plan (08/09/2023 3:08 PM EST): Cough for about 3 weeks or so, and also blowing blood drainage out of nose Occ yellow as well Will treat for sinusitis Primary hypertension 08/28/2021 023 Obstructive sleep apnea, adult 08/28/2021 09/10/2024 Assessment & Plan (09/10/2024 6:52 AM EST): You have a diagnosis of obstructive sleep apnea. It is recommended that you wear your PAP device any time while in bed sleeping. Not using the PAP device can increase your risk of elevated/uncontrolled high blood pressure, atrial fibrillation, heart attack, stroke, or sudden . Compliance with PAP: no Cannot tolerate wearing PAP Does use oxygen therapy at night Assessment & Plan (06/14/2024 1:39 PM EST): Did not tolerated wearing PAP Does wear oxygen at night Appendicitis 08/01/2020 09/12/2023 Encounters Date Type Department Care Team Description 02/18/2025 Refill [facility] [address] [place] [address] Annette Whitfield NP Other specified soft tissue disorders 02/16/2025 Refill [facility] [address] [place] [address] Annette Whitfield NP Edema of both lower extremities 12/19/2024 1:40 PM EDT Office Visit [facility] [address] [place] [address] Annette Whitfield NP Primary hypertension (Primary Dx); Elevated alkaline phosphatase level from Last 3 Months Immunizations Immunization Administration Dates Next Due Influenza, Recombinant, injectable, preservative free 05/19/2024 Influenza, injectable, MDCK, preservative free, quadrivalent 06/23/2021,05/07/2020 Influenza, injectable, quadrivalent, preservativ e free 04/25/2022 Influenza, recombinant, quad rivalent, injectable, preservative free 05/25/2023 Pneumococcal Conjugate PCV 13 02/06/1999 SARS-COV-2 (COVID-19) vaccin e, mRNA, spike protein, LNP, PF, 50 mcg/0.5 mL 05/13/2023 Family History Medical History Relation Name Comments Dementia Brother Cancer Father Heart disease Mother Diabetes Sibling Relation Name Status Comments Brother Father Mother Sibling Social History Tobacco Use Types Packs/Day Years Used Date Smoking Tobacco: Former Cigarettes Smokeless Tobacco: Never Tobacco Cessation:Counseling Given: Not Answered Alcohol Use Standard Drinks/Week Comments Never 0 [...] Sign Reading Time Taken Comments Blood Pressure 138/70 12/19/2024 1:45 PM EDT Pulse 57 12/19/2024 1:45 PM EDT Temperature 36.7 C (98.1 F) 12/19/2024 1:45 PM EDT Respiratory Rate 18 12/19/2024 1:45 PM EDT Oxygen Saturation 93% 12/19/2024 1:45 PM EDT Inhaled Oxygen Concentration - - Weight 87.4 kg (192 lb 9.6 oz) 12/19/2024 1:45 P M EDT Height 181.6 cm (5' 11.5 ) 12/19/2024 1:45 PM ED T Body Mass Index 26.49 12/19/2024 1:45 PM EDT Plan of Treatment Upcoming Encounters Date Type Department Care Team (Late st Contact Info) Description 04/04/2025 1:30 PM EDT Office Visit [facility] [address] [place] [address] Annette Whitfield NP [address] [place] [address] 2025 1:00 PM EST Office Visit [facility] [address] [place] [address] Annette Whitfield NP [address] [place] [address] Health Maintenance Due Date Last Done Comments Diabetes: Hemoglobin A1C 03/10/2025 025, 03/15/2024, 12/14/2023, Additional history exists Influenza Vaccine (#1) 2025 4, 05/25/2023, 04/25/2022, Additional history exists Medicare Annual Wellness (AWV) 06/14/2025 06/14/2024 , 10/06/2022 Diabetes: Retinopathy Screening 09/01/2025 Diabetes: Urine Protein Screening 09/19/2025 09/19/2024, 12/14/2023, 09/29/2022, Additional history exists Pneumococcal Vaccine: 65+ Years Discontinued 9 Procedures Procedure Name Priority Date/Time Associated Diagnosis Comments POCT GLYCOSYLATED HEMOGLOBIN (HGB A1C) Routine 09/10/2024 1:44 PM EST Type 2 diabetes mellitus without complications (HCC) MICROALBUMIN / CREATININE URINE RATIO Routine 12/14/2023 10:19 AM EDT Primary hypertension from Last 3 Months or Most Recently Relevant to Health Maintenance Results * (ABNORMAL) POCT glycosylated hemoglobin (Hb A1C) docked device (09/10/2024 1:44 PM EST) Hemoglobin A1C 6.2% Blood Venous blood specimen / Unknown 09/10/2024 1:44 PM EST Annette Whitfield NP POINT OF CARE TEST ENTER/EDIT O RDERABLES Final Result * Microalbumin / creatinine, urine ratio (12/14/2023 10:19 AM EDT) CREATININE, RANDOM URINE 129 20 - 320 mg/dL [facility] ALBUMIN, URINE 0.5 See Note: mg/dL [facility] Comment: Reference Range: Reference Range Not established ALBUMIN/CREATININE RATIO, RANDOM URINE 4 <30 mg/g creat [facility] Comment: The ADA defines abnormalities in albumin excretion as follows: Albuminuria Category Result (mg/g creatinine) Normal to Mildly increased <30 Moderately increased 30-299 Severely increased > OR = 300 The ADA recommends that at least two of three specimens collected within a 3-6 month period be abnormal before considering a patient to be within a diagnostic category. Urine Urine specimen obtained by clean catch procedure / Unknown 12/14/2023 10:19 AM EDT 12/14/2023 10:19 AM EDT Narrative [facility] - 12/15/2023 1:04 PM EDT FASTING:YES FASTING: YES Resulting Agency Comment Performing Organization Information Site ID: [id number] Name: [facility] Address: 5 [facility], [address] [place] [phone] Director: Boyd Rivas MD us Annette Whitfield INSTRUMENT MECHANICS SUPERVISOR LAB URINE ORDERABLES Final Resu lt [facility] from Last 3 Months or Most Recently Relevant to Health Maintenance Insurance MEDICARE [facility] Care Teams Engineering Consultant Relationship Specialty Start Date End Date Dilip Hensley MD [address] [place] [address] PCP - General Family Medicine 05/14/24 Annette Whitfield NP [address] [place] [address] Nurse Practitioner Family Medicine 08/01/22
--- NOTE | 2025-03-06 11:18 | XR_ITS ---
The [address] [address] Patient Name: AZUL PALOMINO MRN: [id number] date: 1935 Sex: M Assigned Patient Location: ER Current Patient Location: ER Accession/Order Number: [id number] Exam Date: 03/06/2025 11:41 Report Date: 03/06/2025 11:43 At the request of: STEPHANIE GOMEZ MD Procedure: XR tibia fibula LT 2V LEFT TIBIA AND FIBULA - - 2 views CLINICAL HISTORY: Acute left calf pain for 3 days. COMPARISON: None FINDINGS: Distal soft tissue swelling is present. No acute bony process is seen. Presumed remote posttraumatic changes involving the proximal tibia and fibula. Ankle mortise appears intact. Plantar spurring. Visualized knee joint demonstrates mild degenerative change. XR/XR tibia fibula LT 2V IMPRESSION: DISTAL SOFT TISSUE SWELLING WITHOUT ACUTE BONY PROCESS. Impression dictated by: Oni Frankel Jr., D.O. 03/06/2025 11:43 AM Dictation Location: [place] [address] Electronically authenticated by: [id number] Y Date: 03/06/2025 11:43
--- NOTE | 2025-03-06 11:31 | ED_ITS ---
HPI HPI - General Adult General Chief complaint: Extremity Problem, Nontraumatic Stated complaint: LOWER EXTREMITY PAIN Time Seen by Provider: 03/06/25 11:15 Source: patient Mode of arrival: walk-in Limitations: no limitations History of Present Illness HPI narrative: 89-year-old male presents for left calf pain. He has had this for a few days and there is been no injury. His was worried about a blood clot and she brought him in. He does not have pain in the foot or ankle or knee. He has no history of DVT. He has no chest pain or shortness of breath. Related Data Home Medications ?Medication ?Instructions ?Recorded ?Confirmed aspirin 81 mg tablet 81 mg PO DAILY 03/06/25/01/23 carvedilol 25 mg tablet mg 03/06/25 finasteride 5 mg tablet mg 03/06/25 furosemide 20 mg tablet mg 03/06/25 hydrochlorothiazide 25 mg tablet mg 03/06/25 potassium chloride 10 mEq meq PO 03/06/25 tablet,extended release(part/cryst) Allergies Allergy/AdvReac Type Severity Reaction Status Date / Time No Known Drug Allergies Allergy Verified 03/06/25 11:12 Opioid HPI Opioid Management Most Recent Opioid Data: Last Pain Scale 4 Today, 11:14 Review of Systems ROS Narrative A ten point review of systems is negative except as noted above. PFSH PFSH Social History Little interest or pleasure in doing things: not at all Feeling down, depressed, or hopeless: not at all Exam Narrative Exam Narrative: Nurses note and vital signs reviewed and patient is not hypoxic. General: The patient appears well and in no apparent distress. Patient is resting comfortably on cart. Skin: Warm, dry, no pallor noted. There is no rash noted. Head: Normocephalic, atraumatic Eye: Normal conjunctiva, no drainage Ears, Nose, Mouth, and Throat: oral mucosa is moist. Nares patent. Cardiovascular: Regular Rate and Rhythm Respiratory: Patient is in no distress, no accessory muscle use Back: non-tender GI: Soft and nontender Musculoskeletal: The left calf is examined. There is no swelling or mass. No ankle edema. Dorsalis pedis pulse 2+ and capillary refill is brisk in the foot. Knee and ankle have full range of motion. He has a linear abrasion laterally on that left leg but this is healing from a scrape about 2 months ago according to his and the patient. There is no open area or erythema. Neurological: A&O, normal speech Psychiatric: Cooperative Constitutional Vital Signs, click to edit/add: Last Vital Signs Temp 98.3 F 03/06/25 11:09 Pulse 73 03/06/25 11:09 Resp 14 03/06/25 11:09 BP 169/87 H 03/06/25 11:09 Pulse Ox 93 L 03/06/25 11:09 O2 Del Method Room Air 03/06/25 11:09 Course Vital Signs Vital signs: Vital Signs Temperature 98.3 F 03/06/25 11:09 Pulse Rate 73 03/06/25 11:09 Respiratory Rate 14 03/06/25 11:09 Blood Pressure 169/87 H 03/06/25 11:09 Pulse Oximetry 93 L 03/06/25 11:09 Oxygen Delivery Method Room Air 03/06/25 11:09 Temperature 98.3 F 03/06/25 11:09 Pulse Rate 73 03/06/25 11:09 Respiratory Rate 14 03/06/25 11:09 Blood Pressure 169/87 H 03/06/25 11:09 Pulse Oximetry 93 L 03/06/25 11:09 Oxygen Delivery Method Room Air 03/06/25 11:09 Medical Decision Making MDM Narrative Medical decision making narrative: Tibia x-ray and venous Doppler are negative per radiologist and he is discharged home. He was recommended Motrin and rest. Treatment diagnosis and follow-up were discussed with the patient and his . Differential Diagnosis Differential Diagnosis: Muscle strain, DVT Imaging Data Right tibia: Radiologist's impression: ITS Impressions Tibia/Fibula X-Ray 03/06/25 11:18 IMPRESSION: DISTAL SOFT TISSUE SWELLING WITHOUT ACUTE BONY PROCESS. Impression dictated by: Oni Frankel Jr., D.O. 03/06/2025 11:43 AM Dictation Location: [place] [address] Electronically authenticated by: [id number] Y Date: 03/06/2025 11:43 Venous Doppler: No DVT in the left lower extremity Discharge Plan Discharge Chief Complaint: Extremity Problem, Nontraumatic Clinical Impression: Left leg pain Patient Disposition: Home, Self-Care Time of Disposition Decision: 13:39 Condition: Good Mode of Transportation: Private Vehicle Prescriptions / Home Meds: No Action carvedilol 25 mg tablet hydrochlorothiazide 25 mg tablet finasteride 5 mg tablet aspirin 81 mg tablet 81 mg PO DAILY furosemide 20 mg tablet potassium chloride 10 mEq tablet,ER particles/crystals PO Print Language: Indonesian Instructions: Leg Pain (ED) Referrals: Annette Whitfield [employer] [employer] SPECIALIST [Primary Care Provider, Family Practice] - 1 week
== END 2025-03-06 14:12 | disposition home or self-care (01) ==
PROVIDERS: Emergency Provider Emergency Medicine; PCP Nurse Practitioner
DX: M79.662 Pain in left lower leg (principal)
CPT/HCPCS: 73590; 93971; 99284